=== PATIENT | female | born 1945 | race Caucasian/White ===

== ENCOUNTER → 2017-11-16 14:51 | Outpatient (CLI) | payer MEDICARE, OTHER, SELFPAY | PROVIDERS: PCP Family Medicine; Visit Provider Orthopaedic Surgery | DX: M75.121 Complete rotator cuff tear or rupture of right shoulder, not specified as traumatic (principal) | CPT/HCPCS: 99213 ==

== ENCOUNTER → 2017-11-21 07:55 | Outpatient (CLI) | payer MEDICARE, OTHER, SELFPAY | PROVIDERS: PCP Family Medicine; Visit Provider Orthopaedic Surgery | DX: M75.121 Complete rotator cuff tear or rupture of right shoulder, not specified as traumatic (principal); Z01.818 Encounter for other preprocedural examination ==

== ENCOUNTER → 2017-12-13 20:13 | Outpatient (REF) | payer MEDICARE, OTHER, SELFPAY ==
[2017-12-13 20:49] LABS: Epithelial Cells Rare HPF (Negative); RBC >50 (0-2); WBC >50 HPF (0-5)
[2017-12-13 20:50] LABS: Bacteria Moderate HPF (Negative); C & S Indicated? C&S Done As Ordered; Casts Negative LPF (Negative); Crystals Negative HPF (Negative); Mucus Negative (Negative); Other Cells Mod Transitional (Negative)
== END ==
LOC: LBN 20:13
PROVIDERS: PCP Family Medicine; Visit Provider Family Medicine
DX: R35.0 Frequency of micturition (principal)
CPT/HCPCS: 87077; 81015; 87086; 87186

== ENCOUNTER → 2017-12-28 13:22 | Outpatient (BNVA) | payer MEDICARE, OTHER, SELFPAY | PROVIDERS: PCP Family Medicine; Referring Provider Family Medicine; Visit Provider Orthopaedic Surgery | DX: S46.011D Strain of muscle(s) and tendon(s) of the rotator cuff of right shoulder, subsequent encounter (principal); S46.211D Strain of muscle, fascia and tendon of other parts of biceps, right arm, subsequent encounter; W19.XXXD Unspecified fall, subsequent encounter ==

== ENCOUNTER → 2018-01-16 09:47 | Outpatient (BNVA) | payer MEDICARE, OTHER, SELFPAY | PROVIDERS: PCP Family Medicine; Referring Provider Family Medicine; Visit Provider Orthopaedic Surgery | DX: Z47.89 Encounter for other orthopedic aftercare (principal); M75.41 Impingement syndrome of right shoulder ==

== ENCOUNTER → 2018-02-15 09:29 | Outpatient (BNVA) | payer MEDICARE, OTHER, SELFPAY | PROVIDERS: PCP Family Medicine; Referring Provider Family Medicine; Visit Provider Orthopaedic Surgery | DX: M17.0 Bilateral primary osteoarthritis of knee (principal); Z47.89 Encounter for other orthopedic aftercare; M75.41 Impingement syndrome of right shoulder | CPT/HCPCS: 20610; 99211; 99213; J1040 ==

== ENCOUNTER → 2018-03-27 08:52 | Outpatient (BNVA) | payer MEDICARE, OTHER, SELFPAY | PROVIDERS: PCP Family Medicine; Referring Provider Family Medicine; Visit Provider Orthopaedic Surgery | DX: M75.41 Impingement syndrome of right shoulder (principal); Z47.89 Encounter for other orthopedic aftercare | CPT/HCPCS: 99211; 99213 ==

== ENCOUNTER 2018-05-21 18:00 | Emergency (ER) | payer MEDICARE, OTHER, SELFPAY ==
[2018-05-21 18:31] VITALS: BP 171/81; RESP 18; TEMP 36.4
--- NOTE | 2018-05-21 18:55 | DI.CT_ITS ---
SYMPTOMS/DIAGNOSIS: RIGHT-SIDED HEADACHE X [address]: No intracranial hemorrhage, mass or infarct is seen. There is no significant atrophy. The ventricles are normal in size. There are mild patchy areas of decreased attenuation in the white matter consistent with mild small vessel disease. There is minimal mucosal thickening at the floor of the right maxillary sinus. The mastoid air cells appear clear. IMPRESSION: No acute abnormality. CT ANGIOGRAPHY OF THE HEAD AND NECK: CT angiography was performed with multi slice acquisition and multi planar and 3D reconstruction. There is no evidence of vascular occlusion, dissection or significant stenosis in the head or neck. No aneurysm is identified. There is a mild stenosis in the proximal left internal carotid artery. IMPRESSION: Mild stenosis of the proximal left internal carotid artery.
[2018-05-21 19:21] LABS: Abs Immature Grans 0.01 k/cumm (0.0-0.09); Absolute Basophil Count 0.02 k/cumm (0.0-0.2); Absolute Eosinophil Count 0.07 k/cumm (0.0-0.7); Absolute Lymphocyte Count 1.62 k/cumm (1.2-3.4); Absolute Monocyte Count 0.61 k/cumm (0.11-0.7); Absolute Neutrophil Count 5.25 k/cumm (1.2-6.7); Basophils % 0.3; Eosinophils % 0.9; HCT 39.1 % (36.0-46.0); HGB 13.1 g/dL (12.0-15.5); Immature Grans % 0.1; Lymphocytes % 21.4; Mean Corp. HGB Concentration 33.5 g/dL (32.0-36.0); Mean Corpuscular Volume 89.7 fL (80-95); Neutrophils % 69.3; Platelet Count 219 x1000/uL (130-400); RBC 4.36 m/cumm (4.00-5.20); RBC Distribution Width 13.1 % (11.7-14.6); White Blood Cell Count 7.58 k/cumm (4.4-10.8)
[2018-05-21 19:23] LABS: ALT 21 U/L (12-78); AST 22 U/L (15-37); Albumin 3.5 g/dL (3.4-5.0); Alkaline Phosphatase 123 U/L (46-116); Anion Gap 8.3 mmol/L (3-11); BUN 17 mg/dL (7-18); Bilirubin, Total 0.2 mg/dL (0.2-1.0); CO2 29.7 mmol/L (21.0-32.0); CREATININE 0.74 mg/dL (0.55-1.02); Chloride 103 mmol/L (98-107); Glucose 107 mg/dL (70-100); Potassium 3.7 mmol/L (3.5-5.1); Sodium 141 mmol/L (136-145); Total Protein 7.3 g/dL (6.4-8.2)
[2018-05-21] MEDS: Ketorolac 30 MG/ML VIAL 15 MG IM (19:26)
[2018-05-21] MEDS: Acetaminophen 500 MG TAB 1000 MG PO (19:26)
[2018-05-21] MEDS: Prochlorperazine 10 MG/2 ML VIAL IVP (19:26)
[2018-05-21] MEDS: methylPREDNISolone SUCC 125 MG VIAL IVP (19:26)
[2018-05-21] MEDS: Normal Saline 1,000 ML 1000 ML IV (19:27)
[2018-05-21] MEDS: Omnipaque 350 MG/ML 100 ML BTL IJ (19:44)
[2018-05-21] MEDS: Normal Saline Flush 10 ML SYR IVP (19:45)
--- NOTE | 2018-05-21 20:15 | DI.VRAD_ITS ---
EXAM: CT Head Without Contrast EXAM DATE/TIME: 05/21/2018 6:56 PM CLINICAL HISTORY: 72 years old, female; Pain; Headache; Other: RT sided; Patient HX: Right-sided GARCIA 5 days TECHNIQUE: Axial computed tomography images of the head/brain without contrast. Coronal and sagittal reformatted images were created and reviewed. COMPARISON: CT HEAD FACIALS WO 07/14/2014 12:48 PM FINDINGS: Brain: No acute intracranial hemorrhage. There is mild diffuse heterogeneity of the white matter attenuation, consistent with chronic white matter ischemic changes. Mild cerebral atrophy Ventricles: Normal. No ventriculomegaly. Bones/joints: Unremarkable. No acute fracture. Sinuses: Mucosal thickening in the right maxillary sinus and ethmoid sinuses and right sphenoid sinus may represent mild sinusitis Mastoid air cells: Visualized mastoid air cells are unremarkable. No mastoid effusion. Soft tissues: Unremarkable. IMPRESSION: No acute intracranial hemorrhage. Dictated and Authenticated by: Tyler Griffith MD. Ordering:ALYSHA Muir MD
--- NOTE | 2018-05-21 20:32 | DI.VRAD_ITS ---
EXAM: CT Angiography Head With Contrast EXAM DATE/TIME: 05/21/2018 6:56 PM CLINICAL HISTORY: 72 years old, female; Pain; Headache; Patient HX: Right sided GARCIA 5 days TECHNIQUE: Axial computed tomographic angiography images of the head with intravenous contrast using CT angiography protocol. MIP reconstructed images were created and reviewed. COMPARISON: CT Private^HEAD ROUTINE (Adult) 05/21/2018 7:36 PM FINDINGS: Right internal carotid artery: Unremarkable. Intracranial segment is patent with no significant stenosis. No aneurysm. Right anterior cerebral artery: Unremarkable. No occlusion or significant stenosis. No aneurysm. Right middle cerebral artery: Unremarkable. No occlusion or significant stenosis. No aneurysm. Right posterior cerebral artery: Unremarkable. No occlusion or significant stenosis. No aneurysm. Right vertebral artery: Unremarkable. No occlusion or significant stenosis. No aneurysm. Left internal carotid artery: Unremarkable. Intracranial segment is patent with no significant stenosis. No aneurysm. Left anterior cerebral artery: Unremarkable. No occlusion or significant stenosis. No aneurysm. Left middle cerebral artery: Unremarkable. No occlusion or significant stenosis. No aneurysm. Left posterior cerebral artery: Unremarkable. No occlusion or significant stenosis. No aneurysm. Left vertebral artery: Unremarkable. No occlusion or significant stenosis. No aneurysm. Basilar artery: Unremarkable. No occlusion or significant stenosis. No aneurysm. IMPRESSION: No acute findings. EXAM: CT Angiography Neck With Contrast EXAM DATE/TIME: 05/21/2018 6:56 PM CLINICAL HISTORY: 72 years old, female; Pain; Headache; Patient HX: Right sided GARCIA 5 days TECHNIQUE: Axial computed tomographic angiography images of the neck with intravenous contrast using CT angiography protocol. MIP reconstructed images were created and reviewed. COMPARISON: CT Private^HEAD ROUTINE (Adult) 05/21/2018 7:36 PM FINDINGS: VASCULATURE: Right common carotid artery: Normal. No significant stenosis. No dissection or occlusion. Right internal carotid artery: Normal. Extracranial segment is patent with no significant stenosis. No dissection or occlusion. Right external carotid artery: Normal. No occlusion or significant stenosis. Right vertebral artery: Normal. No significant stenosis. No dissection or occlusion. Left common carotid artery: Normal. No significant stenosis. No dissection or occlusion. Left internal carotid artery: Mild stenosis proximal left ICA. Left external carotid artery: Normal. No occlusion or significant stenosis. Left vertebral artery: Normal. No significant stenosis. No dissection or occlusion. NECK: Bones/joints: No acute fracture. Soft tissues: Normal. No significant soft tissue swelling. IMPRESSION: Mild stenosis proximal left ICA. COMMENT: Reference per NASCET criteria for degree of stenosis: Mild: <50% stenosis. Moderate: 50-69% stenosis. Severe: 70-94% stenosis. Near occlusion: 95-99% stenosis. Dictated and Authenticated by: Glenn Holloway MD. Ordering:ALYSHA Muir MD
[2018-05-21] MEDS: Amoxicillin 875/Clav. 125 TAB PO (21:12)
--- NOTE | 2018-05-21 21:26 | W.ED.GENAD ---
Discharge Plan Disposition Patient Disposition: HOME Condition: Good Discharge Details Chief Complaint: Headache Clinical Impression: Sinusitis, Right-sided headache Reason For Visit: head ache Primary Care Provider: Mellissa Garnett ED Provider: Wood Zaragoza Home Meds and New Rx's Prescriptions: New fluticasone [Flonase Allergy Relief] 50 mcg/actuation spray,suspension 1 spray KARTHIK DAILY Qty: 15.8 RF: 0 amoxicillin-pot clavulanate 875-125 mg tablet 1 tab PO BID 7 Days Qty: 14 RF: 0 loratadine 10 mg capsule 10 mg PO DAILY Qty: 20 RF: 0 No Action carbamazepine 100 mg tablet extended release 12 hr 100 mg PO BID Qty: 60 RF: 2 Ventolin HFA 8 GM HFA aerosol inhaler 2 puff Inhalation Q4H PRN Qty: 1 RF: 12 nystatin 60 GM powder Topical BID Qty: 60 RF: 12 fluticasone 16 GM spray,suspension 1 spry NS BID Qty: 1 RF: 12 citalopram 20 MG tablet 20 mg PO DAILY Qty: 90 RF: 12 ibuprofen [Advil Liqui-Gel] 200 MG capsule 200 mg PO BID PRNRF: 0 multivitamin 1 EACH capsule 1 cap PO DAILY RF: 0 cholecalciferol (vitamin D3) [Vitamin D3] 1,000 UNIT capsule 1,000 unit PO DAILY RF: 0 acetaminophen [Mapap Extra Strength] 500 MG tablet 1,000 mg PO PRN PRNRF: 0 Docljrqb-Oxtxup-EMG with vit D 1 EACH tablet 1 tab PO DAILY RF: 0 Discharge Instructions Instructions: Sinusitis (ED) Additional Instructions: Please take the medication as directed. Please follow-up with your primary care provider as soon as possible for reassessment. If you notice any worsening of your symptoms, or any new symptoms such as vomiting, diarrhea, fever, chills, shortness of breath, chest pain, numbness, weakness, or fainting , please return immediately to the emergency department for reevaluation. Please follow up with your primary care provider as soon as possible for reassessment and reevaluation. As always, it was a pleasure participating in your medical care today. Referrals: Mellissa Garnett MD, [place] [Primary Care Provider] - Medical Decision Making This is a pleasant 72-year-old female who presents today for evaluation of headache for the last week. She describes it as an achy pressure-like sensation on the right side of her face, primarily over the frontal and maxillary sinuses. Physical exam demonstrates notable reproducible tenderness on palpation and percussion of the sinuses. No evidence of ocular entrapment, significant swelling or other abnormality. No evidence of nuchal rigidity or tenderness. Signs and symptoms are clinically inconsistent with meningitis. Her vision is normal, and pupils are equal and reactive, no clinical evidence of glaucoma or history of it. She demonstrates a clinical history and exam that is inconsistent with severe intracranial bleed or ruptured aneurysm. With the patient's persistent of her headaches even in spite of carbamazepine treatment, I do feel that further workup is indicated. We did discuss potential lumbar puncture and the patient is requesting to hold off on this for the time being. Laboratory workup is returned demonstrates no significant abnormalities. CT scan and CT angios the head neck to evaluate for aneurysm have returned and is negative for any acute process however there is notable mucosal thickening of the right maxillary sinus and the ethmoid and the right sphenoid sinuses which may represent mild sinusitis. This appears to be clinically consistent with the patient's symptoms, I do feel that this may be playing a role. The patient did not have any notable improvement of her symptoms with migraine cocktail, further making a migraine headache less likely as the cause of her symptoms. With no concerning imaging findings, and clinical exam and consistent with meningitis or intracranial bleed, I do feel that treatment for sinusitis is certainly reasonable. She is already received Solu-Medrol, we push we will prescribe a nasal steroid, as well as a nasal decongestion antibiotics. For sinusitis. We will give the first dose here. She does have close follow-up with her primary care provider in the next 2 days. We did discuss red flags which to return the patient understands. I have extensively reviewed the treatment plan and discharge instructions with the patient and their family. I have addressed all patient concerns at this time. The patient and family was made aware of what symptoms to monitor for that would warrant a return to the emergency department. Discussed the plan with the patient and family, they demonstrate verbal understanding and agreement with our assessment and plan at this time. FINDINGS: Brain: No acute intracranial hemorrhage. There is mild diffuse heterogeneity of the white matter attenuation, consistent with chronic white matter ischemic changes. Mild cerebral atrophy Ventricles: Normal. No ventriculomegaly. Bones/joints: Unremarkable. No acute fracture. Sinuses: Mucosal thickening in the right maxillary sinus and ethmoid sinuses and right sphenoid sinus may represent mild sinusitis Mastoid air cells: Visualized mastoid air cells are unremarkable. No mastoid effusion. Soft tissues: Unremarkable. IMPRESSION: No acute intracranial hemorrhage. FINDINGS: Right internal carotid artery: Unremarkable. Intracranial segment is patent with no significant stenosis. No aneurysm. Right anterior cerebral artery: Unremarkable. No occlusion or significant stenosis. No aneurysm. Right middle cerebral artery: Unremarkable. No occlusion or significant stenosis. No aneurysm. Right posterior cerebral artery: Unremarkable. No occlusion or significant stenosis. No aneurysm. Right vertebral artery: Unremarkable. No occlusion or significant stenosis. No aneurysm. Left internal carotid artery: Unremarkable. Intracranial segment is patent with no significant stenosis. No aneurysm. Left anterior cerebral artery: Unremarkable. No occlusion or significant stenosis. No aneurysm. Left middle cerebral artery: Unremarkable. No occlusion or significant stenosis. No aneurysm. Left posterior cerebral artery: Unremarkable. No occlusion or significant stenosis. No aneurysm. Left vertebral artery: Unremarkable. No occlusion or significant stenosis. No aneurysm. Basilar artery: Unremarkable. No occlusion or significant stenosis. No aneurysm. IMPRESSION: No acute findings. FINDINGS: VASCULATURE: Right common carotid artery: Normal. No significant stenosis. No dissection or occlusion. Right internal carotid artery: Normal. Extracranial segment is patent with no significant stenosis. No dissection or occlusion. Right external carotid artery: Normal. No occlusion or significant stenosis. Right vertebral artery: Normal. No significant stenosis. No dissection or occlusion. Left common carotid artery: Normal. No significant stenosis. No dissection or occlusion. Left internal carotid artery: Mild stenosis proximal left ICA. Left external carotid artery: Normal. No occlusion or significant stenosis. Left vertebral artery: Normal. No significant stenosis. No dissection or occlusion. NECK: Bones/joints: No acute fracture. Soft tissues: Normal. No significant soft tissue swelling. IMPRESSION: Mild stenosis proximal left ICA. COMMENT: Reference per NASCET criteria for degree of stenosis: Mild: <50% stenosis. Moderate: 50-69% stenosis. Severe: 70-94% stenosis. Near occlusion: 95-99% stenosis. Thank you for allowing us to participate in the care of your patient. Dictated and Authenticated by: Glenn Holloway MD HPI General Date/Time Provider Initiated Documentation: 05/21/18 18:41. HPI Narrative: This is a pleasant 72-year-old female with no significant past medical history except for multiple various surgeries, who presents today for evaluation of headache. Patient states that for the last 5 days she has had mild headache over her frontal and maxillary sinus on the right. Roughly 7 days ago she had been noticing notable pressure, and then felt like something released with a notable transition of her symptoms. She is unable to describe the nature of the pain, but describes it is painful and aching and pressure-like. She denies any significant visual changes, she denies any neck pain, neck stiffness, sore throat, hearing changes. She denies any rash. She was seen by primary care provider 5 days ago and was diagnosed with trigeminal neuralgia, and started on carbamazepine. She notes that this is not changed or improved her symptoms at all. She denies any other modifying factors. Light, loud noise, did not make her symptoms worse. She states that this feels slightly different than previous sinus headaches that she has had. The patient denies any headache red flags of worst headache of life, thunderclap headache, neck pain, fever, chills, concerning family history of polycystic kidney disease, Marfan syndrome, Florence-Danlos syndrome, abdominal aortic aneurysm, aortic dissection, or intracranial aneurysm. Related Data Home Medications Medication Instructions Recorded Confirmed albuterol sulfate [Ventolin Hfa] 2 puff INHALATION Q4H PRN #1 09/21/15 05/21/18 inhaler nystatin 0 TOPICAL BID #60 gm 12/29/15 05/16/18 ibuprofen [Advil] 200 mg PO BID PRN 10/28/16 05/21/18 multivitamin 1 cap PO DAILY 07/14/17 05/21/18 fluticasone 1 spry NS BID #1 bottle 08/07/17 05/21/18 citalopram 20 mg PO DAILY #90 tab-cap 11/09/17 05/21/18 cholecalciferol (vitamin D3) 1,000 unit PO DAILY 11/21/17 05/21/18 [Vitamin D3] acetaminophen [Tylenol] 1,000 mg PO PRN PRN 12/01/17 05/21/18 eqqegbxn-ibais-qku 2-C-D3-ricardo 1 tab PO DAILY 12/01/17 05/21/18 [Wyrnrmotuf-Mflcqjgornj-UBH Tab] carbamazepine ER 100 mg 100 mg PO BID #60 tab 05/16/18 05/21/18 tablet,extended release,12 hr amoxicillin-pot clavulanate 1 tab PO BID 7 Days #14 tab 05/21/18 fluticasone [Flonase Allergy 1 spray KARTHIK DAILY #15.8 gm 05/21/18 Relief] loratadine 10 mg PO DAILY #20 cap 05/21/18 Previous Rx's Medication Instructions Recorded fluticasone 1 spry NS BID #1 bottle 08/07/17 citalopram 20 mg PO DAILY #90 tab-cap 11/09/17 carbamazepine ER 100 mg 100 mg PO BID #60 tab 05/16/18 tablet,extended release,12 hr amoxicillin-pot clavulanate 1 tab PO BID 7 Days #14 tab 05/21/18 fluticasone [Flonase Allergy 1 spray KARTHIK DAILY #15.8 gm 05/21/18 Relief] loratadine 10 mg PO DAILY #20 cap 05/21/18 Allergies Allergy/AdvReac Type Severity Reaction Status Date / Time oxycodone HCl [From Percocet] AdvReac hallucinati Unverified 05/21/18 18:36 ons General Stated Complaint: Headache STEVO: 2 Review of Systems Review of Systems All systems reviewed & are unremarkable except as noted in HPI and below PFSH Surgical History Appendectomy (04/17/80) Bladder Surgery (~1994) Bursectomy Cholecystectomy (~1980) Colonoscopy - MAC (~2000) Dilation and curettage EGD - MAC (~2000) Rotator Cuff Repair Tonsillectomy and adenoidectomy Total replacement of hip (11/02/16) Family History Mother Essential hypertension Heart disease Hyperlipidemia Stroke Father Hheyh-[id number]-mfiivdeowhf deficiency Diabetes Asthma Sister Kvcqm-0-sojuegxyqfy deficiency Lung transplanted Sister Essential hypertension Hyperlipidemia Asthma Grandfather Diabetes Essential hypertension Depression Grandfather Heart disease Asthma Grandmother Essential hypertension Hyperlipidemia Stroke Grandmother Essential hypertension Heart disease Hyperlipidemia Stroke Daughter No problems noted. Social History Smoking/Tobacco Use Status: Former Tobacco Use Exam Narrative Exam Narrative: 1.Const: Well-nourished, Well-developed, appearing stated age 2.Eyes: PERRL, no conjunctival injection, and symmetrical lids. 3.ENT: Atraumatic external nose and ears. Moist MM. Neck: Symmetric, trachea midline, No thyromegaly. Patient demonstrates good movement of cervical neck. There is no nuchal rigidity, no nuchal tenderness. Patient is able to flex the neck without any difficulty or significant pain. Negative Kernig's and Brudzinski sign. Notable tenderness on percussion of the frontal and maxillary sinuses. No evidence of swelling on the face. No evidence of rash, or shingles. No evidence of facial droop, or facial asymmetry. No evidence of otitis media or externa. 4.CVS: +S1/S2, No murmurs or gallops. Peripheral pulses 2+ and equal in all extremities. Brisk capillary refill in all extremities. 5.RESP: Unlabored respiratory effort. Clear to auscultation bilaterally. No wheezes rales or rhonchi 6.GI: Soft, Nontender/Nondistended, No hepatosplenomegaly. No guarding or rebound. 7.MSK: Normocephalic/Atraumatic, Extremities w/o deformity or ttp No cyanosis or clubbing, Normal movement of all extremities 8.Skin: Warm, Dry. No rashes or lesions. 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 Sensation grossly intact, no focal neurologic deficits. All 6 cardinal planes of vision are fully intact. No evidence of rotatory or vertical nystagmus. The patient demonstrated a normal mxvtfv-kzhp-ycdkvr, good dexterity. There was no evidence of dysdiadochokinesia. Patient was able to ambulate without difficulty. There was no wide-based gait. Romberg, and phjj-hr-ggrc are both normal on testing. Sensation was intact bilaterally as well as muscle strength bilaterally for all extremities. Patient was able to verbalize butter cup with no slurring, or miss pronunciation. 10.Psych: (AAO) x3. Appropriate mood and affect Course Vital Signs Temperature 36.4 C L 05/21/18 18:31 Respiratory Rate 18 05/21/18 18:31 Blood Pressure 171/81 H 05/21/18 18:31 Temperature 36.4 C L 05/21/18 18:31 Temperature Source Temporal Artery Scan 05/21/18 18:31 Respiratory Rate 18 05/21/18 18:31 Blood Pressure 171/81 H 05/21/18 18:31 Blood Pressure Position Sitting 05/21/18 18:31 Oxygen Delivery Method Room Air 05/21/18 18:31 Oxygen Flow Rate 0 05/21/18 18:31 Pain Level 10 05/21/18 18:31 Lab/Test Results Lab/Test Results: Laboratory Tests Range/Units 05/21/18 05/21/18 19:04 19:05 WBC (4.4-10.8) k/cumm 7.58 RBC (4.00-5.20) m/cumm 4.36 Hgb (12.0-15.5) g/dL 13.1 Hct (36.0-46.0) % 39.1 MCV (80-95) fL 89.7 MCH (27.0-33.0) pg 30.0 MCHC (32.0-36.0) g/dL 33.5 RDW (11.7-14.6) % 13.1 Plt Count (130-400) x1000/uL 219 MPV (8.0-11.0) fL 10.0 Immature Gran % 0.1 Neutrophils % 69.3 Lymphocytes % 21.4 Monocytes % 8.0 Eosinophils % 0.9 Basophils % 0.3 Absolute Neutrophils (1.2-6.7) k/cumm 5.25 Absolute Lymphocytes (1.2-3.4) k/cumm 1.62 Absolute Monocytes (0.11-0.7) k/cumm 0.61 Absolute Eosinophils (0.0-0.7) k/cumm 0.07 Absolute Basophils (0.0-0.2) k/cumm 0.02 Sodium (136-145) mmol/L 141 Potassium (3.5-5.1) mmol/L 3.7 Chloride (98-107) mmol/L 103 Carbon Dioxide (21.0-32.0) mmol/L 29.7 Anion Gap (3-11) mmol/L 8.3 BUN (7-18) mg/dL 17 Creatinine (0.55-1.02) mg/dL 0.74 Estimated GFR/1.73 m2 (mL/min/1.73m2) >= 60.00 Glucose (70-100) mg/dL 107 H Calcium (8.5-10.1) mg/dL 9.0 Total Bilirubin (0.2-1.0) mg/dL 0.2 AST (15-37) U/L 22 ALT (12-78) U/L 21 Alkaline Phosphatase (46-116) U/L 123 H Total Protein (6.4-8.2) g/dL 7.3 Albumin (3.4-5.0) g/dL 3.5
--- NOTE | 2018-05-21 21:29 | ED.GENADUL_ITS ---
Discharge Plan Disposition Patient Disposition: HOME Condition: Good Discharge Details Chief Complaint: Headache Clinical Impression: Sinusitis, Right-sided headache Reason For Visit: head ache Primary Care Provider: Mellissa Garnett ED Provider: Wood Zaragoza Home Meds and New Rx's Prescriptions: New fluticasone [Flonase Allergy Relief] 50 mcg/actuation spray,suspension 1 spray KARTHIK DAILY Qty: 15.8 RF: 0 amoxicillin-pot clavulanate 875-125 mg tablet 1 tab PO BID 7 Days Qty: 14 RF: 0 loratadine 10 mg capsule 10 mg PO DAILY Qty: 20 RF: 0 No Action carbamazepine 100 mg tablet extended release 12 hr 100 mg PO BID Qty: 60 RF: 2 Ventolin HFA 8 GM HFA aerosol inhaler 2 puff Inhalation Q4H PRN Qty: 1 RF: 12 nystatin 60 GM powder Topical BID Qty: 60 RF: 12 fluticasone 16 GM spray,suspension 1 spry NS BID Qty: 1 RF: 12 citalopram 20 MG tablet 20 mg PO DAILY Qty: 90 RF: 12 ibuprofen [Advil Liqui-Gel] 200 MG capsule 200 mg PO BID PRNRF: 0 multivitamin 1 EACH capsule 1 cap PO DAILY RF: 0 cholecalciferol (vitamin D3) [Vitamin D3] 1,000 UNIT capsule 1,000 unit PO DAILY RF: 0 acetaminophen [Mapap Extra Strength] 500 MG tablet 1,000 mg PO PRN PRNRF: 0 Lbrnstgw-Fksjos-IRR with vit D 1 EACH tablet 1 tab PO DAILY RF: 0 Discharge Instructions Instructions: Sinusitis (ED) Additional Instructions: Please take the medication as directed. Please follow-up with your primary care provider as soon as possible for reassessment. If you notice any worsening of your symptoms, or any new symptoms such as vomiting, diarrhea, fever, chills, shortness of breath, chest pain, numbness, weakness, or fainting , please return immediately to the emergency department for reevaluation. Please follow up with your primary care provider as soon as possible for reassessment and reevaluation. As always, it was a pleasure participating in your medical care today. Referrals: Mellissa Garnett MD, [place] [Primary Care Provider] - Medical Decision Making This is a pleasant 72-year-old female who presents today for evaluation of headache for the last week. She describes it as an achy pressure- like sensation on the right side of her face, primarily over the frontal and maxillary sinuses. Physical exam demonstrates notable reproducible tenderness on palpation and percussion of the sinuses. No evidence of ocular entrapment, significant swelling or other abnormality. No evidence of nuchal rigidity or tenderness. Signs and symptoms are clinically inconsistent with meningitis. Her vision is normal, and pupils are equal and reactive, no clinical evidence of glaucoma or history of it. She demonstrates a clinical history and exam that is inconsistent with severe intracranial bleed or ruptured aneurysm. With the patient's persistent of her headaches even in spite of carbamazepine treatment, I do feel that further workup is indicated. We did discuss potential lumbar puncture and the patient is requesting to hold off on this for the time being. Laboratory workup is returned demonstrates no significant abnormalities. CT scan and CT angios the head neck to evaluate for aneurysm have returned and is negative for any acute process however there is notable mucosal thickening of the right maxillary sinus and the ethmoid and the right sphenoid sinuses which may represent mild sinusitis. This appears to be clinically consistent with the patient's symptoms, I do feel that this may be playing a role. The patient did not have any notable improvement of her symptoms with migraine cocktail, further making a migraine headache less likely as the cause of her symptoms. With no concerning imaging findings, and clinical exam and consistent with meningitis or intracranial bleed, I do feel that treatment for sinusitis is certainly reasonable. She is already received Solu-Medrol, we push we will prescribe a nasal steroid, as well as a nasal decongestion antibiotics. For sinusitis. We will give the first dose here. She does have close follow-up with her primary care provider in the next 2 days. We did discuss red flags which to return the patient understands. I have extensively reviewed the treatment plan and discharge instructions with the patient and their family. I have addressed all patient concerns at this time. The patient and family was made aware of what symptoms to monitor for that would warrant a return to the emergency department. Discussed the plan with the patient and family, they demonstrate verbal understanding and agreement with our assessment and plan at this time. FINDINGS: Brain: No acute intracranial hemorrhage. There is mild diffuse heterogeneity of the white matter attenuation, consistent with chronic white matter ischemic changes. Mild cerebral atrophy Ventricles: Normal. No ventriculomegaly. Bones/joints: Unremarkable. No acute fracture. Sinuses: Mucosal thickening in the right maxillary sinus and ethmoid sinuses and right sphenoid sinus may represent mild sinusitis Mastoid air cells: Visualized mastoid air cells are unremarkable. No mastoid effusion. Soft tissues: Unremarkable. IMPRESSION: No acute intracranial hemorrhage. FINDINGS: Right internal carotid artery: Unremarkable. Intracranial segment is patent with no significant stenosis. No aneurysm. Right anterior cerebral artery: Unremarkable. No occlusion or significant stenosis. No aneurysm. Right middle cerebral artery: Unremarkable. No occlusion or significant stenosis. No aneurysm. Right posterior cerebral artery: Unremarkable. No occlusion or significant stenosis. No aneurysm. Right vertebral artery: Unremarkable. No occlusion or significant stenosis. No aneurysm. Left internal carotid artery: Unremarkable. Intracranial segment is patent with no significant stenosis. No aneurysm. Left anterior cerebral artery: Unremarkable. No occlusion or significant stenosis. No aneurysm. Left middle cerebral artery: Unremarkable. No occlusion or significant stenosis. No aneurysm. Left posterior cerebral artery: Unremarkable. No occlusion or significant stenosis. No aneurysm. Left vertebral artery: Unremarkable. No occlusion or significant stenosis. No aneurysm. Basilar artery: Unremarkable. No occlusion or significant stenosis. No aneurysm. IMPRESSION: No acute findings. FINDINGS: VASCULATURE: Right common carotid artery: Normal. No significant stenosis. No dissection or occlusion. Right internal carotid artery: Normal. Extracranial segment is patent with no significant stenosis. No dissection or occlusion. Right external carotid artery: Normal. No occlusion or significant stenosis. Right vertebral artery: Normal. No significant stenosis. No dissection or occlu mat. Left common carotid artery: Normal. No significant stenosis. No dissection or occlusion. Left internal carotid artery: Mild stenosis proximal left ICA. Left external carotid artery: Normal. No occlusion or significant stenosis. Left vertebral artery: Normal. No significant stenosis. No dissection or occlusion. NECK: Bones/joints: No acute fracture. Soft tissues: Normal. No significant soft tissue swelling. IMPRESSION: Mild stenosis proximal left ICA. COMMENT: Reference per NASCET criteria for degree of stenosis: Mild: <50% stenosis. Moderate: 50-69% stenosis. Severe: 70-94% stenosis. Near occlusion: 95-99% stenosis. Thank you for allowing us to participate in the care of your patient. Dictated and Authenticated by: Glenn Holloway MD HPI General Date/Time Provider Initiated Documentation: 05/21/18 18:41 . HPI Narrative: This is a pleasant 72-year-old female with no significant past medical history except for multiple various surgeries, who presents today for evaluation of headache. Patient states that for the last 5 days she has had mild headache over her frontal and maxillary sinus on the right. Roughly 7 days ago she had been noticing notable pressure, and then felt like something released with a notable transition of her symptoms. She is unable to describe the nature of the pain, but describes it is painful and aching and pressure-like. She denies any significant visual changes, she denies any neck pain, neck stiffness, sore throat, hearing changes. She denies any rash. She was seen by primary care provider 5 days ago and was diagnosed with trigeminal neuralgia, and started on carbamazepine. She notes that this is not changed or improved her symptoms at all. She denies any other modifying factors. Light, loud noise, did not make her symptoms worse. She states that this feels slightly different than previous sinus headaches that she has had. The patient denies any headache red flags of worst headache of life, thunderclap headache, neck pain, fever, chills, concerning family history of polycystic kidney disease, Marfan syndrome, Florence- Danlos syndrome, abdominal aortic aneurysm, aortic dissection, or intracranial aneurysm. Related Data Home Medications Medication Instructions Recorded Confirmed albuterol sulfate [Ventolin Hfa] 2 puff INHALATION Q4H PRN #1 09/21/15 05/21/18 inhaler nystatin 0 TOPICAL BID #60 gm 12/29/15 05/16/18 ibuprofen [Advil] 200 mg PO BID PRN 10/28/16 05/21/18 multivitamin 1 cap PO DAILY 07/14/17 05/21/18 fluticasone 1 spry NS BID #1 bottle 08/07/17 05/21/18 citalopram 20 mg PO DAILY #90 tab-cap 11/09/17 05/21/18 cholecalciferol (vitamin D3) 1,000 unit PO DAILY 11/21/17 05/21/18 [Vitamin D3] acetaminophen [Tylenol] 1,000 mg PO PRN PRN 12/01/17 05/21/18 xturyhrp-hxtmp-qgu 2-C-D3-ricardo 1 tab PO DAILY 12/01/17 05/21/18 [Cmgamybqet-Mdgxikeqdpm-SVY Tab] carbamazepine ER 100 mg 100 mg PO BID #60 tab 05/16/18 05/21/18 tablet,extended release,12 hr amoxicillin-pot clavulanate 1 tab PO BID 7 Days #14 tab 05/21/18 fluticasone [Flonase Allergy 1 spray KARTHIK DAILY #15.8 gm 05/21/18 Relief] loratadine 10 mg PO DAILY #20 cap 05/21/18 Previous Rx's Medication Instructions Recorded fluticasone 1 spry NS BID #1 bottle 08/07/17 citalopram 20 mg PO DAILY #90 tab-cap 11/09/17 carbamazepine ER 100 mg 100 mg PO BID #60 tab 05/16/18 tablet,extended release,12 hr amoxicillin-pot clavulanate 1 tab PO BID 7 Days #14 tab 05/21/18 fluticasone [Flonase Allergy 1 spray KARTHIK DAILY #15.8 gm 05/21/18 Relief] loratadine 10 mg PO DAILY #20 cap 05/21/18 Allergies Allergy/AdvReac Type Severity Reaction Status Date / Time oxycodone HCl [From Percocet] AdvReac hallucinati Unverified 05/21/18 18:36 ons General Stated Complaint: Headache STEVO: 2 Review of Systems Review of Systems All systems reviewed & are unremarkable except as noted in HPI and below PFSH Surgical History Appendectomy (04/17/80) Bladder Surgery (~1994) Bursectomy Cholecystectomy (~1980) Colonoscopy - MAC (~2000) Dilation and curettage EGD - MAC (~2000) Rotator Cuff Repair Tonsillectomy and adenoidectomy Total replacement of hip (11/02/16) Family History Mother Essential hypertension Heart disease Hyperlipidemia Stroke Father Gvppm-[id number]-bugpwtiusip deficiency Diabetes Asthma Sister Gzvfq-[id number]-[id number] deficiency Lung transplanted Sister Essential hypertension Hyperlipidemia Asthma Grandfather Diabetes Essential hypertension Depression Grandfather Heart disease Asthma Grandmother Essential hypertension Hyperlipidemia Stroke Grandmother Essential hypertension Heart disease Hyperlipidemia Stroke Daughter No problems noted. Social History Smoking/Tobacco Use Status: Former Tobacco Use Exam Narrative Exam Narrative: 1.Const: Well-nourished, Well-developed, appearing stated age 2.Eyes: PERRL, no conjunctival injection, and symmetrical lids. 3.ENT: Atraumatic external nose and ears. Moist MM. Neck: Symmetric, trachea midline, No thyromegaly. Patient demonstrates good movement of cervical neck. There is no nuchal rigidity, no nuchal tenderness. Patient is able to flex the neck without any difficulty or significant pain. Negative Kernig's and Brudzinski sign. Notable tenderness on percussion of the frontal and maxillary sinuses. No evidence of swelling on the face. No evidence of rash, or shingles. No evidence of facial droop, or facial asymmetry. No evidence of otitis media or externa. 4.CVS: +S1/S2, No murmurs or gallops. Peripheral pulses 2+ and equal in all extremities. Brisk capillary refill in all extremities. 5.RESP: Unlabored respiratory effort. Clear to auscultation bilaterally. No wheezes rales or rhonchi 6.GI: Soft, Nontender/Nondistended, No hepatosplenomegaly. No guarding or rebound. 7.MSK: Normocephalic/Atraumatic, Extremities w/o deformity or ttp No cyanosis or clubbing, Normal movement of all extremities 8.Skin: Warm, Dry. No rashes or lesions. 9.Neuro: sound recordist II-XII grossly intact. Sensation grossly intact, no focal neurologic deficits. All 6 cardinal planes of vision are fully intact. No evidence of rotatory or vertical nystagmus. The patient demonstrated a normal ayoixx-wbex-szburm, good dexterity. There was no evidence of dysdiadochokinesia. Patient was able to ambulate without difficulty. There was no wide-based gait. Romberg, and pwzh-ao-kdri are both normal on testing. Sensation was intact bilaterally as well as muscle strength bilaterally for all extremities. Patient was able to verbalize butter cup with no slurring, or miss pronunciation. 10.Psych: (AAO) x3. Appropriate mood and affect Course Vital Signs Temperature 36.4 C L 05/21/18 18:31 Respiratory Rate 18 05/21/18 18:31 Blood Pressure 171/81 H 05/21/18 18:31 Temperature 36.4 C L 05/21/18 18:31 Temperature Source Temporal Artery Scan 05/21/18 18:31 Respiratory Rate 18 05/21/18 18:31 Blood Pressure 171/81 H 05/21/18 18:31 Blood Pressure Position Sitting 05/21/18 18:31 Oxygen Delivery Method Room Air 05/21/18 18:31 Oxygen Flow Rate 0 05/21/18 18:31 Pain Level 10 05/21/18 18:31 Lab/Test Results Lab/Test Results: Laboratory Tests Range/Units 05/21/18 05/21/18 19:04 19:05 WBC (4.4-10.8) k/cumm 7.58 RBC (4.00-5.20) m/cumm 4.36 Hgb (12.0-15.5) g/dL 13.1 Hct (36.0-46.0) % 39.1 MCV (80-95) fL 89.7 MCH (27.0-33.0) pg 30.0 MCHC (32.0-36.0) g/dL 33.5 RDW (11.7-14.6) % 13.1 Plt Count (130-400) x1000/uL 219 MPV (8.0-11.0) fL 10.0 Immature Gran % 0.1 Neutrophils % 69.3 Lymphocytes % 21.4 Monocytes % 8.0 Eosinophils % 0.9 Basophils % 0.3 Absolute Neutrophils (1.2-6.7) k/cumm 5.25 Absolute Lymphocytes (1.2-3.4) k/cumm 1.62 Absolute Monocytes (0.11-0.7) k/cumm 0.61 Absolute Eosinophils (0.0-0.7) k/cumm 0.07 Absolute Basophils (0.0-0.2) k/cumm 0.02 Sodium (136-145) mmol/L 141 Potassium (3.5-5.1) mmol/L 3.7 Chloride (98-107) mmol/L 103 Carbon Dioxide (21.0-32.0) mmol/L 29.7 Anion Gap (3-11) mmol/L 8.3 BUN (7-18) mg/dL 17 Creatinine (0.55-1.02) mg/dL 0.74 Estimated GFR/1.73 m2 (mL/min/1.73m2) >= 60.00 Glucose (70-100) mg/dL 107 H Calcium (8.5-10.1) mg/dL 9.0 Total Bilirubin (0.2-1.0) mg/dL 0.2 AST (15-37) U/L 22 ALT (12-78) U/L 21 Alkaline Phosphatase (46-116) U/L 123 H Total Protein (6.4-8.2) g/dL 7.3 Albumin (3.4-5.0) g/dL 3.5
[2018-05-21 21:47] VITALS: BP 174/85; PULSE 75; RESP 18; TEMP 36.5; O2SAT 95
--- NOTE | 2018-05-26 09:49 | NUR.NOTE ---
Nursing Note: Patient called stating that she was still having a headache and having tremors. Saw her dentist and it is not dental, but they questioned any cardiac testing. She was wondering what she should do. Unable to give advice over the phone, she should come in for evaluation and discussion with provider about testing for cardiac issues. She understood and stated will be in. Ariella Tamez.
== END 2018-05-21 21:47 | disposition home or self-care (01) ==
PROVIDERS: Emergency Provider Student in an Organized Health Care Education/Training Program; PCP Family Medicine
DX: J01.90 Acute sinusitis, unspecified (principal); R50.9 Fever, unspecified
CPT/HCPCS: 36415; 70496; 70498; 80053; 96361; 96372; 96374; 96375; 99284; 70450; 85025; J0780; J1885; J2930; J3490

== ENCOUNTER 2018-05-26 10:23 | Emergency (ER) | payer MEDICARE, OTHER, SELFPAY ==
[2018-05-26 10:29] VITALS: BP 160/70; PULSE 88; RESP 15; TEMP 36.6; O2SAT 97
[2018-05-26 11:19] LABS: Abs Immature Grans 0.02 k/cumm (0.0-0.09); Absolute Basophil Count 0.02 k/cumm (0.0-0.2); Absolute Eosinophil Count 0.06 k/cumm (0.0-0.7); Absolute Lymphocyte Count 1.57 k/cumm (1.2-3.4); Absolute Monocyte Count 0.58 k/cumm (0.11-0.7); Absolute Neutrophil Count 3.89 k/cumm (1.2-6.7); Basophils % 0.3; HCT 40.1 % (36.0-46.0); HGB 13.3 g/dL (12.0-15.5); Immature Grans % 0.3; Lymphocytes % 25.6; Mean Corp. HGB Concentration 33.2 g/dL (32.0-36.0); Mean Corpuscular Hemoglobin 30.2 pg (27.0-33.0); Mean Corpuscular Volume 90.9 fL (80-95); Mean Platelet Volume 9.8 fL (8.0-11.0); Monocytes % 9.4; Neutrophils % 63.4; Platelet Count 218 x1000/uL (130-400); RBC 4.41 m/cumm (4.00-5.20); RBC Distribution Width 13.3 % (11.7-14.6); White Blood Cell Count 6.14 k/cumm (4.4-10.8)
[2018-05-26 11:34] LABS: ALT 31 U/L (12-78); AST 24 U/L (15-37); Albumin 3.3 g/dL (3.4-5.0); Alkaline Phosphatase 111 U/L (46-116); Anion Gap 7.2 mmol/L (3-11); BUN 18 mg/dL (7-18); Bilirubin, Total 0.3 mg/dL (0.2-1.0); CO2 30.8 mmol/L (21.0-32.0); CREATININE 0.73 mg/dL (0.55-1.02); Calcium 8.8 mg/dL (8.5-10.1); Chloride 106 mmol/L (98-107); Glucose 122 mg/dL (70-100); Potassium 3.8 mmol/L (3.5-5.1); Sodium 144 mmol/L (136-145); Total Protein 7.1 g/dL (6.4-8.2)
[2018-05-26 11:36] LABS: Troponin I < 0.02 ng/mL (0.00-0.06)
[2018-05-26 11:56] LABS: Bilirubin Negative (Negative); Blood Trace-lysed (Negative); Clarity Clear; Glucose Negative (Negative); Ketones Negative (Negative); Leukocyte Esterase Negative (Negative); Nitrite Negative (Negative); Urobilinogen 0.2 EU/dL (Up TO 0.2); pH 6.5 (5-8)
[2018-05-26 12:11] LABS: Epithelial Cells Rare HPF (Negative); RBC 0-2 (0-2)
[2018-05-26 12:12] LABS: Bacteria Rare HPF (Negative); C & S Indicated? No; Casts Negative LPF (Negative); Crystals Negative HPF (Negative); Mucus Negative (Negative); Other Cells Rare Renal (Negative)
--- NOTE | 2018-05-26 12:13 | W.ED.GENAD ---
Discharge Plan Disposition Patient Disposition: HOME Condition: Good Discharge Details Chief Complaint: Headache Clinical Impression: Headache Primary Care Provider: Mellissa Garnett ED Provider: Wood Zaragoza Home Meds and New Rx's Prescriptions: No Action carbamazepine 100 mg tablet extended release 12 hr 100 mg PO BID Qty: 60 RF: 2 Ventolin HFA 8 GM HFA aerosol inhaler 2 puff Inhalation Q4H PRN Qty: 1 RF: 12 nystatin 60 GM powder Topical BID Qty: 60 RF: 12 fluticasone 16 GM spray,suspension 1 spry NS BID Qty: 1 RF: 12 citalopram 20 MG tablet 20 mg PO DAILY Qty: 90 RF: 12 ibuprofen [Advil Liqui-Gel] 200 MG capsule 200 mg PO BID PRNRF: 0 multivitamin 1 EACH capsule 1 cap PO DAILY RF: 0 cholecalciferol (vitamin D3) [Vitamin D3] 1,000 UNIT capsule 1,000 unit PO DAILY RF: 0 acetaminophen [Mapap Extra Strength] 500 MG tablet 1,000 mg PO PRN PRNRF: 0 Farwjpwt-[id number]-NPO with vit D 1 EACH tablet 1 tab PO DAILY RF: 0 fluticasone [Flonase Allergy Relief] 50 mcg/actuation spray,suspension 1 spray KARTHIK DAILY Qty: 15.8 RF: 0 amoxicillin-pot clavulanate 875-125 mg tablet 1 tab PO BID 7 Days Qty: 14 RF: 0 loratadine 10 mg capsule 10 mg PO DAILY Qty: 20 RF: 0 Discharge Instructions Instructions: General Headache (ED) Additional Instructions: Please follow-up with your primary care provider at your scheduled appointment on Monday. Please follow-up with the neurologist Dr. Lamas as soon as you were contacted for an appointment please continue to take the medications that were prescribed on her last visit. If you notice any worsening of your symptoms, or any new symptoms such as vomiting, diarrhea, fever, chills, shortness of breath, chest pain, numbness, weakness, or fainting , please return immediately to the emergency department for reevaluation. Please follow up with your primary care provider as soon as possible for reassessment and reevaluation. As always, it was a pleasure participating in your medical care today. Referrals: Mellissa Garnett MD, [place] [Primary Care Provider] - Discharge Data Discharge Date/Time-TO BE ENTERED AT DEPARTURE: 05/26/18 12:32 Medical Decision Making Is a pleasant 72-year-old female was a headache for the last 1-2 weeks, was initially diagnosed by her PCP having trigeminal neuralgia, and came to the ER and had a fairly extensive headache workup, with the diagnosis being sinusitis as noted on CT with no other concerning red flags noted on exam, imaging, labs. She went to see her dentist over the last 2-3 days and the dentist recommended that she come back for a full cardiac workup in regards to her headache. She has no red flags of jaw pain, neck pain, chest pain or shortness of breath. She denies any recent cardiac disease, he does not smoke. Denies PE risk factors such as recent long car rides, immobilization, recent surgery, prior history of DVT or PE, family history of PE or DVT, morbid obesity, exogenous estrogen and smoking, hemoptysis, history of cancer. Physical exam demonstrates no significant abnormalities, no signs of meningitis, mild tenderness is persistent for the right frontal and maxillary sinuses. No neurologic abnormalities are noted, and the patient's physical exam is certainly not indicative of significant Parkinson's at this time. Patient does not want any additional CT reimaging. Laboratory workup was performed including urinalysis at the patient's specific request. Urinalysis, laboratory workup, troponin, and EKG are all benign with no significant abnormalities. At the patient's request I did review every single lab test and result that was performed on her. I reviewed the EKG with her, and had an extensive and long discussion regarding her symptoms, importance of continuing her sinusitis medication, the importance of close follow-up. Also made it clear that unfortunately over the weekend we are unable to get an MRI at this time but I do recommend close follow-up with her primary care provider. I did recommend neurology follow-up if she would like with Dr. Lamas, however the patient states that she will follow-up closely with her primary care doctor within the next 3 days, and they will reassess the need for potential neurology follow-up. Patient did demonstrate some hesitation with Dr. Lamas and was requesting referral to a neurologist in [place], however unfortunately I am unable to make that referral did recommend that she discuss this with her primary care provider. We discussed red flags which to return and the patient understands. I have extensively reviewed the treatment plan and discharge instructions with the patient and their family. I have addressed all patient concerns at this time. The patient and family was made aware of what symptoms to monitor for that would warrant a return to the emergency department. Discussed the plan with the patient and family, they demonstrate verbal understanding and agreement with our assessment and plan at this time. EKG 10: 58 Rate 78, intervals normal, sinus rhythm, no ST elevations or depressions, single Q wave in lead III. No inverted T waves except for V1. No inverted T wave in lead III. No broad terminal S wave. No evidence of STEMI. HPI General Date/Time Provider Initiated Documentation: 05/26/18 10:42. HPI Narrative: This is a 72-year-old female who presents for evaluation of headache. Roughly 1-1/2 weeks ago she was seen and assessed by her primary care provider diagnosed her with right-sided trigeminal neuralgia. She was started on carbamazepine but had no significant improvement of her symptoms with this. She then came to the emergency department a few days later after no resolution and had a workup notable for a negative CT scan of the head, CT angiogram of the head and neck, negative comprehensive metabolic workup and a negative hematologic workup. The patient did not want a lumbar puncture at that time. CT scan did show evidence of sinusitis on the right that correlated well with her symptomatology. She was started on antihistamines, Augmentin and Flonase. She was taking the medications, and then went to see her dentist who recommended that she come back to the ER for a cardiac workup as a source of her headaches. She presents today for further cardiac evaluation of her headache. She denies any jaw pain, neck pain, chest pain, shortness of breath, numbness, tingling or weakness. She states that her headache has slightly improved with the medications that she has been on. Of note she only took 3 days of the Augmentin and then started taking Keflex at the recommendation of her dentist. She denies any neck pain, nausea, vomiting, or diarrhea. She denies any vision changes. She denies any new rash. The pain is still located in her right frontal and right maxillary sinus area. She describes it as achy and pressure-like in nature. She states that she has noticed increased drainage and slight improvement after the medications for the sinusitis. The patient also states that her friend recommended that she should be evaluated for Parkinson's disease if she has noted an occasional tremor as of late. She denies any significant difficulty ambulating, profound weakness, or any other significant neurologic component. Additionally the patient is also requesting that all labs and studies ordered today we reviewed with her prior to discharge. Related Data Home Medications Medication Instructions Recorded Confirmed albuterol sulfate [Ventolin Hfa] 2 puff INHALATION Q4H PRN #1 09/21/15 05/23/18 inhaler nystatin 0 TOPICAL BID #60 gm 12/29/15 05/23/18 ibuprofen [Advil] 200 mg PO BID PRN 10/28/16 05/23/18 multivitamin 1 cap PO DAILY 07/14/17 05/23/18 fluticasone 1 spry NS BID #1 bottle 08/07/17 05/23/18 citalopram 20 mg PO DAILY #90 tab-cap 11/09/17 05/23/18 cholecalciferol (vitamin D3) 1,000 unit PO DAILY 11/21/17 05/23/18 [Vitamin D3] acetaminophen [Tylenol] 1,000 mg PO PRN PRN 12/01/17 05/23/18 fnagkqxo-yysfj-wkz 2-C-D3-ricardo 1 tab PO DAILY 12/01/17 05/23/18 [Ylavhzpflu-Togwkamspao-JPY Tab] carbamazepine ER 100 mg 100 mg PO BID #60 tab 05/16/18 05/23/18 tablet,extended release,12 hr amoxicillin-pot clavulanate 1 tab PO BID 7 Days #14 tab 05/21/18 05/23/18 fluticasone [Flonase Allergy 1 spray KARTHIK DAILY #15.8 gm 05/21/18 05/23/18 Relief] loratadine 10 mg PO DAILY #20 cap 05/21/18 05/23/18 Previous Rx's Medication Instructions Recorded fluticasone 1 spry NS BID #1 bottle 08/07/17 citalopram 20 mg PO DAILY #90 tab-cap 11/09/17 carbamazepine ER 100 mg 100 mg PO BID #60 tab 05/16/18 tablet,extended release,12 hr amoxicillin-pot clavulanate 1 tab PO BID 7 Days #14 tab 02/04/19 fluticasone [Flonase Allergy 1 spray KARTHIK DAILY #15.8 gm 05/21/18 Relief] loratadine 10 mg PO DAILY #20 cap 05/21/18 Allergies Allergy/AdvReac Type Severity Reaction Status Date / Time oxycodone HCl [From Percocet] AdvReac hallucinati Unverified 05/23/18 09:47 ons General Stated Complaint: Headache STEVO: 2 Review of Systems Review of Systems All systems reviewed & are unremarkable except as noted in HPI and below PFSH Surgical History Appendectomy (04/17/80) Bladder Surgery (~1994) Bursectomy Cholecystectomy (~1980) Colonoscopy - MAC (~2000) Dilation and curettage EGD - MAC (~2000) Rotator Cuff Repair Tonsillectomy and adenoidectomy Total replacement of hip (11/02/16) Family History Mother Essential hypertension Heart disease Hyperlipidemia Stroke Father Htqrz-[id number]-ezlnoytcpog deficiency Diabetes Asthma Sister Vcroa-[id number]-hxzgwbvcesi deficiency Lung transplanted Sister Essential hypertension Hyperlipidemia Asthma Grandfather Diabetes Essential hypertension Depression Grandfather Heart disease Asthma Grandmother Essential hypertension Hyperlipidemia Stroke Grandmother Essential hypertension Heart disease Hyperlipidemia Stroke Daughter No problems noted. Social History Smoking and Tabacco status: Former Tobacco Use Exam Narrative Exam Narrative: 1.Const: Well-nourished, Well-developed, appearing stated age 2.Eyes: PERRL, no conjunctival injection, and symmetrical lids. 3.ENT: Atraumatic external nose and ears. Moist MM. Neck: Symmetric, trachea midline, No thyromegaly. Mild tenderness on percussion and palpation of the frontal and maxillary sinuses. No evidence of shingles. No signs of otitis media. Patient demonstrates good movement of cervical neck. There is no nuchal rigidity, no nuchal tenderness. Patient is able to flex the neck without any difficulty or significant pain. Negative Kernig's and Brudzinski sign. 4.CVS: +S1/S2, No murmurs or gallops. Peripheral pulses 2+ and equal in all extremities. Brisk capillary refill in all extremities. 5.RESP: Unlabored respiratory effort. Clear to auscultation bilaterally. No wheezes rales or rhonchi 6.GI: Soft, Nontender/Nondistended, No hepatosplenomegaly. No guarding or rebound. 7.MSK: Normocephalic/Atraumatic, Extremities w/o deformity or ttp No cyanosis or clubbing, Normal movement of all extremities 8.Skin: Warm, Dry. No rashes or lesions. 9.Neuro: trucker II-XII grossly intact. Sensation grossly intact, no focal neurologic deficits. All 6 cardinal planes of vision are fully intact. No evidence of rotatory or vertical nystagmus. The patient demonstrated a normal gvedxm-xzoc-zruorz, good dexterity. There was no evidence of dysdiadochokinesia. Patient was able to ambulate without difficulty. There was no wide-based gait. Romberg, and wthu-kp-drwc are both normal on testing. Sensation was intact bilaterally as well as muscle strength bilaterally for all extremities. Patient was able to verbalize butter cup with no slurring, or miss pronunciation. No evidence of cogwheel rigidity, lead pipe rigidity, difficulty in ambulation or fine motor skills. 10.Psych: (AAO) x3. Appropriate mood and affect Course Vital Signs Temperature 36.6 C 05/26/18 10:29 Pulse 88 05/26/18 10:29 Respiratory Rate 15 05/26/18 10:29 Blood Pressure 160/70 H 05/26/18 10:29 Pulse Oximetry 97 05/26/18 10:29 Temperature 36.6 C 05/26/18 10:29 Temperature Source Temporal Artery Scan 05/26/18 10:29 Pulse 88 05/26/18 10:29 Respiratory Rate 15 05/26/18 10:29 Respiratory Effort Non-Labored 05/26/18 10:36 Blood Pressure 160/70 H 05/26/18 10:29 Blood Pressure Position Supine 05/26/18 10:29 Pulse Oximetry 97 05/26/18 10:29 Oxygen Delivery Method Room Air 05/26/18 10:29 Oxygen Flow Rate 0 05/26/18 10:29 Pain Level 6 05/26/18 10:39 Lab/Test Results Lab/Test Results: Laboratory Tests Range/Units 05/26/18 05/26/18 05/26/18 11:14 11:14 11:45 WBC (4.4-10.8) k/cumm 6.14 RBC (4.00-5.20) m/cumm 4.41 Hgb (12.0-15.5) g/dL 13.3 Hct (36.0-46.0) % 40.1 MCV (80-95) fL 90.9 MCH (27.0-33.0) pg 30.2 MCHC (32.0-36.0) g/dL 33.2 RDW (11.7-14.6) % 13.3 Plt Count (130-400) x1000/uL 218 MPV (8.0-11.0) fL 9.8 Immature Gran % 0.3 Neutrophils % 63.4 Lymphocytes % 25.6 Monocytes % 9.4 Eosinophils % 1.0 Basophils % 0.3 Absolute Neutrophils (1.2-6.7) k/cumm 3.89 Absolute Lymphocytes (1.2-3.4) k/cumm 1.57 Absolute Monocytes (0.11-0.7) k/cumm 0.58 Absolute Eosinophils (0.0-0.7) k/cumm 0.06 Absolute Basophils (0.0-0.2) k/cumm 0.02 Sodium (136-145) mmol/L 144 Potassium (3.5-5.1) mmol/L 3.8 Chloride (98-107) mmol/L 106 Carbon Dioxide (21.0-32.0) mmol/L 30.8 Anion Gap (3-11) mmol/L 7.2 BUN (7-18) mg/dL 18 Creatinine (0.55-1.02) mg/dL 0.73 Estimated GFR/1.73 m2 (mL/min/1.73m2) >= 60.00 Glucose (70-100) mg/dL 122 H Calcium (8.5-10.1) mg/dL 8.8 Total Bilirubin (0.2-1.0) mg/dL 0.3 AST (15-37) U/L 24 ALT (12-78) U/L 31 Alkaline Phosphatase (46-116) U/L 111 Troponin I (0.00-0.06) ng/mL < 0.02 Total Protein (6.4-8.2) g/dL 7.1 Albumin (3.4-5.0) g/dL 3.3 L Urine Color (Yellow) Yellow Urine Clarity Clear Urine pH (5-8) 6.5 Ur Specific [place] (1.005-1.025) 1.010 Urine Protein (Negative) mg/dL Negative Urine Ketones (Negative) mg/dL Negative Urine Blood (Negative) Trace-lysed H Urine Nitrite (Negative) Negative Urine Bilirubin (Negative) Negative Urine Urobilinogen (Up TO 0.2) EU/dL 0.2 Ur Leukocyte Esterase (Negative) Negative Urine RBC (0-2) 0-2 Urine WBC (0-5) HPF 3-5 Ur Epithelial Cells (Negative) HPF Rare Urine Crystals (Negative) HPF Negative Urine Bacteria (Negative) HPF Rare Urine Casts (Negative) LPF Negative Urine Mucus (Negative) Negative Urine Other (Negative) Rare renal Ur Culture Indicated? No Urine Glucose (Negative) mg/dL Negative
--- NOTE | 2018-05-26 12:17 | ED.GENADUL_ITS ---
Discharge Plan Disposition Patient Disposition: HOME Condition: Good Discharge Details Chief Complaint: Headache Clinical Impression: Headache Primary Care Provider: Mellissa Garnett ED Provider: Wood Zaragoza Home Meds and New Rx's Prescriptions: No Action carbamazepine 100 mg tablet extended release 12 hr 100 mg PO BID Qty: 60 RF: 2 Ventolin HFA 8 GM HFA aerosol inhaler 2 puff Inhalation Q4H PRN Qty: 1 RF: 12 nystatin 60 GM powder Topical BID Qty: 60 RF: 12 fluticasone 16 GM spray,suspension 1 spry NS BID Qty: 1 RF: 12 citalopram 20 MG tablet 20 mg PO DAILY Qty: 90 RF: 12 ibuprofen [Advil Liqui-Gel] 200 MG capsule 200 mg PO BID PRNRF: 0 multivitamin 1 EACH capsule 1 cap PO DAILY RF: 0 cholecalciferol (vitamin D3) [Vitamin D3] 1,000 UNIT capsule 1,000 unit PO DAILY RF: 0 acetaminophen [Mapap Extra Strength] 500 MG tablet 1,000 mg PO PRN PRNRF: 0 Whlzzmke-Edrptf-CQD with vit D 1 EACH tablet 1 tab PO DAILY RF: 0 fluticasone [Flonase Allergy Relief] 50 mcg/actuation spray,suspension 1 spray KARTHIK DAILY Qty: 15.8 RF: 0 amoxicillin-pot clavulanate 875-125 mg tablet 1 tab PO BID 7 Days Qty: 14 RF: 0 loratadine 10 mg capsule 10 mg PO DAILY Qty: 20 RF: 0 Discharge Instructions Instructions: General Headache (ED) Additional Instructions: Please follow-up with your primary care provider at your scheduled appointment on Monday. Please follow-up with the neurologist Dr. Lamas as soon as you were contacted for an appointment please continue to take the medications that were prescribed on her last visit. If you notice any worsening of your symptoms, or any new symptoms such as vomiting, diarrhea, fever, chills, shortness of breath, chest pain, numbness, weakness, or fainting , please return immediately to the emergency department for reevaluation. Please follow up with your primary care provider as soon as possible for reassessment and reev aluation. As always, it was a pleasure participating in your medical care today. Referrals: Mellissa Garnett MD, [place] [Primary Care Provider] - Discharge Data Discharge Date/Time-TO BE ENTERED AT DEPARTURE: 05/26/18 12:32 Medical Decision Making Is a pleasant 72-year-old female was a headache for the last 1-2 weeks, was initially diagnosed by her PCP having trigeminal neuralgia, and came to the ER and had a fairly extensive headache workup, with the diagnosis being sinusitis as noted on CT with no other concerning red flags noted on exam, imaging, labs. She went to see her dentist over the last 2-3 days and the dentist recommended that she come back for a full cardiac workup in regards to her headache. She shanks s no red flags of jaw pain, neck pain, chest pain or shortness of breath. She denies any recent cardiac disease, he does not smoke. Denies PE risk factors such as recent long car rides, immobilization, recent surgery, prior history of DVT or PE, family history of PE or DVT, morbid obesity, exogenous estrogen and smoking, hemoptysis, history of cancer. Physical exam demonstrates no significant abnormalities, no signs of meningitis, mild tenderness is persistent for the right frontal and maxillary sinuses. No neurologic abnormalities are noted, and the patient's physical exam is certainly not indicative of significant Parkinson's at this time. Patient does not want any additional CT reimaging. Laboratory workup was performed including urinalysis at the patient's specific request. Urinalysis, laboratory workup, troponin, and EKG are all benign with no significant abnormalities. At the patient's request I did review every single lab test and result that was performed on her. I rev iewed the EKG with her, and had an extensive and long discussion regarding her symptoms, importance of continuing her sinusitis medication, the importance of close follow-up. Also made it clear that unfortunately over the weekend we are unable to get an MRI at this time but I do recommend close follow-up with her primary care provider. I did recommend neurology follow-up if she would like with Dr. Lamas, however the patient states that she will follow-up closely with her primary care doctor within the next 3 days, and they will reassess the need for potential neurology follow-up. Patient did demonstrate some hesitation with Dr. Lamas and was requesting referral to a neurologist in [place], however unfortunately I am unable to make that referral did recommend that she discuss this with her primary care provider. We discussed red flags which to return and the patient understands. I have extensively reviewed the treatment plan and discharge instructions with the patient and their family. I have addressed all patient concerns at this time. The patient and family was made aware of what symptoms to monitor for that would warrant a return to the emergency department. Discussed the plan with the patient and family, they demonstrate verbal understanding and agreement with our assessment and plan at this time. EKG 10: 58 Rate 78, intervals normal, sinus rhythm, no ST elevations or depressions, single Q wave in lead III. No inverted T waves except for V1. No inverted T wave in lead III. No broad terminal S wave. No evidence of STEMI. HPI General Date/Time Provider Initiated Documentation: 05/26/18 10:42 . HPI Narrative: This is a 72-year-old female who presents for evaluation of headache. Roughly 1-1/2 weeks ago she was seen and assessed by her primary care provider diagnosed her with right-sided trigeminal neuralgia. She was started on carbamazepine but had no significant improvement of her symptoms with this. She then came to the emergency department a few days later after no resolution and had a workup notable for a negative CT scan of the head, CT angiogram of the head and neck, negative comprehensive metabolic workup and a negative hematologic workup. The patient did not want a lumbar puncture at that time. CT scan did show evidence of sinusitis on the right that correlated well with her symptomatology. She was started on antihistamines, Augmentin and Flonase. She was taking the medications, and then went to see her dentist who recommended that she come back to the ER for a cardiac workup as a source of her headaches. She presents today for further cardiac evaluation of her headache. She denies any jaw pain, neck pain, chest pain, shortness of breath, numbness, tingling or weakness. She states that her headache has slightly improved with the medications that she has been on. Of note she only took 3 days of the Augmentin and then started taking Keflex at the recommendation of her dentist. She denies any neck pain, nausea, vomiting, or diarrhea. She denies any vision changes. She denies any new rash. The pain is still located in her right frontal and right maxillary sinus area. She describes it as achy and pressure-like in nature. She states that she has noticed increased drainage and slight improvement after the medications for the sinusitis. The patient also states that her friend recommended that she should be evaluated for Parkinson's disease if she has noted an occasional tremor as of late. She denies any significant difficulty ambulating, profound weakness, or any other significant neurologic component. Additionally the patient is also requesting that all labs and studies ordered today we reviewed with her prior to discharge. Related Data Home Medications Medication Instructions Recorded Confirmed albuterol sulfate [Ventolin Hfa] 2 puff INHALATION Q4H PRN #1 09/21/15 05/23/18 inhaler nystatin 0 TOPICAL BID #60 gm 12/29/15 05/23/18 ibuprofen [Advil] 200 mg PO BID PRN 10/28/16 05/23/18 multivitamin 1 cap PO DAILY 07/14/17 05/23/18 fluticasone 1 spry NS BID #1 bottle 08/07/17 05/23/18 citalopram 20 mg PO DAILY #90 tab-cap 11/09/17 05/23/18 cholecalciferol (vitamin D3) 1,000 unit PO DAILY 11/21/17 05/23/18 [Vitamin D3] acetaminophen [Tylenol] 1,000 mg PO PRN PRN 12/01/17 05/23/18 udbfejbq-evwyp-wsd 2-C-D3-ricardo 1 tab PO DAILY 12/01/17 05/23/18 [Xxylrsoykn-Muztquaqrmz-RNH Tab] carbamazepine ER 100 mg 100 mg PO BID #60 tab 05/16/18 05/23/18 tablet,extended release,12 hr amoxicillin-pot clavulanate 1 tab PO BID 7 Days #14 tab 05/21/18 05/23/18 fluticasone [Flonase Allergy 1 spray KARTHIK DAILY #15.8 gm 05/21/18 05/23/18 Relief] loratadine 10 mg PO DAILY #20 cap 05/21/18 05/23/18 Previous Rx's Medication Instructions Recorded fluticasone 1 spry NS BID #1 bottle 08/07/17 citalopram 20 mg PO DAILY #90 tab-cap 11/09/17 carbamazepine ER 100 mg 100 mg PO BID #60 tab 05/16/18 tablet,extended release,12 hr amoxicillin-pot clavulanate 1 tab PO BID 7 Days #14 tab 05/21/18 fluticasone [Flonase Allergy 1 spray KARTHIK DAILY #15.8 gm 05/21/18 Relief] loratadine 10 mg PO DAILY #20 cap 05/21/18 Allergies Allergy/AdvReac Type Severity Reaction Status Date / Time oxycodone HCl [From Percocet] AdvReac hallucinati Unverified 05/23/18 09:47 ons General Stated Complaint: Headache STEVO: 2 Review of Systems Review of Systems All systems reviewed & are unremarkable except as noted in HPI and below PFSH Surgical History Appendectomy (04/17/80) Bladder Surgery (~1994) Bursectomy Cholecystectomy (~1980) Colonoscopy - MAC (~2000) Dilation and curettage EGD - MAC (~2000) Rotator Cuff Repair Tonsillectomy and adenoidectomy Total replacement of hip (11/02/16) Family History Mother Essential hypertension Heart disease Hyperlipidemia Stroke Father Myygv-2-rxiibmfvaxx deficiency Diabetes Asthma Sister Nbwaj-6-ygvnplggjdp deficiency Lung transplanted Sister Essential hypertension Hyperlipidemia Asthma Grandfather Diabetes Essential hypertension Depression Grandfather Heart disease Asthma Grandmother Essential hypertension Hyperlipidemia Stroke Grandmother Essential hypertension Heart disease Hyperlipidemia Stroke Daughter No problems noted. Social History Smoking and Tabacco status: Former Tobacco Use Exam Narrative Exam Narrative: 1.Const: Well-nourished, Well-developed, appearing stated age 2.Eyes: PERRL, no conjunctival injection, and symmetrical lids. 3.ENT: Atraumatic external nose and ears. Moist MM. Neck: Symmetric, trachea midline, No thyromegaly. Mild tenderness on percussion and palpation of the frontal and maxillary sinuses. No evidence of shingles. No signs of otitis media. Patient demonstrates good movement of cervical neck. There is no nuchal rigidity, no nuchal tenderness. Patient is able to flex the neck without any difficulty or significant pain. Negative Kernig's and Brudzinski sign. 4.CVS: +S1/S2, No murmurs or gallops. Peripheral pulses 2+ and equal in all extremities. Brisk capillary refill in all extremities. 5.RESP: Unlabored respiratory effort. Clear to auscultation bilaterally. No wheezes rales or rhonchi 6.GI: Soft, Nontender/Nondistended, No hepatosplenomegaly. No guarding or rebound. 7.MSK: Normocephalic/Atraumatic, Extremities w/o deformity or ttp No cyanosis or clubbing, Normal movement of all extremities 8.Skin: Warm, Dry. No rashes or lesions. 9.Neuro: hr representative II-XII grossly intact. Sensation grossly intact, no focal neurologic deficits. All 6 cardinal planes of vision are fully intact. No evidence of rotatory or vertical nystagmus. The patient demonstrated a normal lpgytg-dfts-zmlpol, good dexterity. There was no evidence of dysdiadochokinesia. Patient was able to ambulate without difficulty. There was no wide-based gait. Romberg, and bkse-lb-fcyl are both normal on testing. Sensation was intact bilaterally as well as muscle strength bilaterally for all extremities. Patient was able to verbalize butter cup with no slurring, or miss pronunciation. No evidence of cogwheel rigidity, lead pipe rigidity, difficulty in ambulation or fine motor skills. 10.Psych: (AAO) x3. Appropriate mood and affect Course Vital Signs Temperature 36.6 C 05/26/18 10:29 Pulse 88 05/26/18 10:29 Respiratory Rate 15 05/26/18 10:29 Blood Pressure 160/70 H 05/26/18 10:29 Pulse Oximetry 97 05/26/18 10:29 Temperature 36.6 C 05/26/18 10:29 Temperature Source Temporal Artery Scan 05/26/18 10:29 Pulse 88 05/26/18 10:29 Respiratory Rate 15 05/26/18 10:29 Respiratory Effort Non-Labored 05/26/18 10:36 Blood Pressure 160/70 H 05/26/18 10:29 Blood Pressure Position Supine 05/26/18 10:29 Pulse Oximetry 97 05/26/18 10:29 Oxygen Delivery Method Room Air 05/26/18 10:29 Oxygen Flow Rate 0 05/26/18 10:29 Pain Level 6 05/26/18 10:39 Lab/Test Results Lab/Test Results: Laboratory Tests Range/Units 05/26/18 05/26/18 05/26/18 11:14 11:14 11:45 WBC (4.4-10.8) k/cumm 6.14 RBC (4.00-5.20) m/cumm 4.41 Hgb (12.0-15.5) g/dL 13.3 Hct (36.0-46.0) % 40.1 MCV (80-95) fL 90.9 MCH (27.0-33.0) pg 30.2 MCHC (32.0-36.0) g/dL 33.2 RDW (11.7-14.6) % 13.3 Plt Count (130-400) x1000/uL 218 MPV (8.0-11.0) fL 9.8 Immature Gran % 0.3 Neutrophils % 63.4 Lymphocytes % 25.6 Monocytes % 9.4 Eosinophils % 1.0 Basophils % 0.3 Absolute Neutrophils (1.2-6.7) k/cumm 3.89 Absolute Lymphocytes (1.2-3.4) k/cumm 1.57 Absolute Monocytes (0.11-0.7) k/cumm 0.58 Absolute Eosinophils (0.0-0.7) k/cumm 0.06 Absolute Basophils (0.0-0.2) k/cumm 0.02 Sodium (136-145) mmol/L 144 Potassium (3.5-5.1) mmol/L 3.8 Chloride (98-107) mmol/L 106 Carbon Dioxide (21.0-32.0) mmol/L 30.8 Anion Gap (3-11) mmol/L 7.2 BUN (7-18) mg/dL 18 Creatinine (0.55-1.02) mg/dL 0.73 Estimated GFR/1.73 m2 (mL/min/1.73m2) >= 60.00 Glucose (70-100) mg/dL 122 H Calcium (8.5-10.1) mg/dL 8.8 Total Bilirubin (0.2-1.0) mg/dL 0.3 AST (15-37) U/L 24 ALT (12-78) U/L 31 Alkaline Phosphatase (46-116) U/L 111 Troponin I (0.00-0.06) ng/mL < 0.02 Total Protein (6.4-8.2) g/dL 7.1 Albumin (3.4-5.0) g/dL 3.3 L Urine Color (Yellow) Yellow Urine Clarity Clear Urine pH (5-8) 6.5 Ur Specific [place] (1.005-1.025) 1.010 Urine Protein (Negative) mg/dL Negative Urine Ketones (Negative) mg/dL Negative Urine Blood (Negative) Trace-lysed H Urine Nitrite (Negative) Negative Urine Bilirubin (Negative) Negative Urine Urobilinogen (Up TO 0.2) EU/dL 0.2 Ur Leukocyte Esterase (Negative) Negative Urine RBC (0-2) 0-2 Urine WBC (0-5) HPF 3-5 Ur Epithelial Cells (Negative) HPF Rare Urine Crystals (Negative) HPF Negative Urine Bacteria (Negative) HPF Rare Urine Casts (Negative) LPF Negative Urine Mucus (Negative) Negative Urine Other (Negative) Rare renal Ur Culture Indicated? No Urine Glucose (Negative) mg/dL Negative
[2018-05-26 12:29] VITALS: BP 160/70; PULSE 88; RESP 15; TEMP 36.6; O2SAT 97
--- NOTE | 2018-05-28 09:10 | PDOC.ERCMPRO ---
Care Management Progress Note 05/28-Dr. Zaragoza requested assistance with a neurology f/u in one month or earlier, for chronic headaches. Referral faxed to neurology this am.
== END 2018-05-26 12:32 | disposition home or self-care (01) ==
PROVIDERS: Emergency Provider Student in an Organized Health Care Education/Training Program; PCP Family Medicine
DX: R51 Headache (principal); G50.0 Trigeminal neuralgia; Z82.49 Family history of ischemic heart disease and other diseases of the circulatory system; Z87.891 Personal history of nicotine dependence; J01.90 Acute sinusitis, unspecified
CPT/HCPCS: 80053; 93005; 99284; 81003; 81015; 84484; 85025; 93010

== ENCOUNTER → 2018-05-29 09:14 | Outpatient (BNVA) | payer MEDICARE, OTHER, SELFPAY | PROVIDERS: PCP Family Medicine; Referring Provider Family Medicine; Visit Provider Orthopaedic Surgery | DX: M25.511 Pain in right shoulder (principal); G89.29 Other chronic pain; Z98.890 Other specified postprocedural states | CPT/HCPCS: 20610; 99211; 99213; J1040 ==

== ENCOUNTER 2018-05-29 15:40 | Outpatient (CLI) | payer MEDICARE, OTHER, SELFPAY ==
--- NOTE | 2018-05-29 12:20 | DI.RAD_ITS ---
SYMPTOM/DIAGNOSIS: NECK AND FACE PAIN, HEADACHE, R51 CERVICAL SPINE: Odontoid, AP and lateral views. The odontoid is intact. The lateral masses are well aligned. No acute fractures or subluxations are seen. There is disc space narrowing at C 3-4, C 5-6 and 6-7. Endplate osteophytes are seen at C 5-6 and C 6-7. There are degenerative changes of the facets seen throughout the cervical spine, particularly on the right at C 5-6 and C 6-7. Mild narrowing of the neural foramen is seen on the left at C 5-6 and on the right at C 5-6 and C 6-7. The prevertebral soft tissues are unremarkable. IMPRESSION: Moderate cervical spondylosis.
== END 2018-05-29 16:00 ==
PROVIDERS: PCP Family Medicine; Visit Provider Family Medicine
DX: R51 Headache (principal); M54.2 Cervicalgia; M47.812 Spondylosis without myelopathy or radiculopathy, cervical region
CPT/HCPCS: 20610; 99211; 99213; 72050; J1040

== ENCOUNTER → 2018-05-30 12:17 | Outpatient (BNVA) | payer MEDICARE, OTHER, SELFPAY | PROVIDERS: PCP Family Medicine; Visit Provider Nurse Practitioner Adult Health | DX: R51 Headache (principal) | CPT/HCPCS: 99214 ==

== ENCOUNTER 2018-05-31 09:40 | Outpatient (CLI) | payer MEDICARE, OTHER, SELFPAY ==
[2018-05-31 14:18] LABS: ESR 13 MM/HR (0-30)
== END 2018-05-31 10:00 ==
PROVIDERS: PCP Family Medicine; Visit Provider Nurse Practitioner Adult Health
DX: R51 Headache (principal)
CPT/HCPCS: 36415; 85652

== ENCOUNTER 2018-06-21 00:49 | Outpatient (CLI) | payer MEDICARE, OTHER, SELFPAY ==
--- NOTE | 2018-06-21 13:42 | DI.CT_ITS ---
SYMPTOMS/DIAGNOSIS: RIGHT-SIDED FACIAL PAIN, HEADACHE, R51 CT SINUSES: CT scan of the sinuses was performed according to the [facility] protocol. Comparison examination is 05/21/18. There is no mucosal thickening in the frontal sinuses. No significant mucosal thickening is seen in the ethmoid air cells. There is mild mucosal thickening seen in the maxillary sinuses bilaterally. There does appear to be a small mucus retention cyst or polyp in the right maxillary sinus. No fluid levels are seen. The sphenoid sinuses are clear except for mild mucosal thickening in the right sphenoid sinus. The mastoid air cells are well pneumatized. The osseous structures are grossly unremarkable. The nasal septum mildly deviates to the right. The turbinates are unremarkable, as are the ostiomeatal complexes. The orbits and retroorbital soft tissues are unremarkable. IMPRESSION: Mild chronic sinus disease.
[2018-06-21 15:53] LABS: Vitamin D 25 Total 37.8 ng/ml (30-100)
[2018-06-21 15:59] LABS: Magnesium 1.8 mg/dL (1.8-2.4); Vitamin B12 481 pg/mL (193-986)
== END 2018-06-21 01:09 ==
PROVIDERS: PCP Family Medicine; Visit Provider Family Medicine
DX: R51 Headache (principal); G50.0 Trigeminal neuralgia; E55.9 Vitamin D deficiency, unspecified; M54.2 Cervicalgia; K21.0 Gastro-esophageal reflux disease with esophagitis; J32.0 Chronic maxillary sinusitis
CPT/HCPCS: 36415; 82306; 70486; 82607; 83735

== ENCOUNTER 2018-06-26 00:52 | Outpatient (CLI) | payer MEDICARE, OTHER, SELFPAY ==
--- NOTE | 2018-06-26 14:41 | DI.MRI_ITS ---
SYMPTOMS/DIAGNOSIS: RIGHT SHOULDER PAIN S/P ROTATOR CUFF SURGERY, 12/01/17, DECREASED RANGE OF MOTION MRI OF THE RIGHT SHOULDER: Routine noncontrast examination. Comparison is 11/03/17. Since the prior examination, the patient has undergone a rotator cuff repair. The supraspinatus tendon appears to be retracted almost to the level of the glenohumeral joint, consistent with a retear. The infraspinatus, teres minor and subscapularis tendon appear intact. There is superior subluxation of the humeral head. There does not appear to be a labral tear on this noncontrast examination. There is abnormal signal seen in the humeral head, secondary to orthopedic artifact. No definite evidence to suggest an occult fracture or avascular necrosis is seen. The biceps tendon is seen in the region of the bicipital groove. The biceps anchor is not definitely visualized. Please correlate with the surgical report to assess for review of relocation of the biceps tendon. There is a moderate amount of fluid seen in the joint space. No soft tissue masses appreciated. There is artifact in the soft tissues and bone due to the patient's orthopedic surgery. IMPRESSION: 1. Status post rotator cuff repair. 2. Findings suggestive of a tear of the supraspinatus tendon. 3. Nonvisualization of the biceps anchor, which may reflect postsurgical relocation of the biceps tendon. Please correlate with the surgical report.
== END 2018-06-26 01:12 ==
PROVIDERS: PCP Family Medicine; Visit Provider Orthopaedic Surgery
DX: M25.511 Pain in right shoulder (principal); M25.811 Other specified joint disorders, right shoulder; M75.111 Incomplete rotator cuff tear or rupture of right shoulder, not specified as traumatic; Z98.890 Other specified postprocedural states
CPT/HCPCS: 73221

== ENCOUNTER → 2018-07-03 09:24 | Outpatient (BNVA) | payer MEDICARE, OTHER, SELFPAY | PROVIDERS: PCP Family Medicine; Visit Provider Nurse Practitioner Adult Health | DX: R51 Headache (principal) | CPT/HCPCS: 99212; 99213 ==

== ENCOUNTER → 2018-07-12 08:46 | Outpatient (BNVA) | payer MEDICARE, OTHER, SELFPAY | PROVIDERS: PCP Family Medicine; Referring Provider Family Medicine; Visit Provider Orthopaedic Surgery | DX: M25.511 Pain in right shoulder (principal); G89.29 Other chronic pain; M25.512 Pain in left shoulder; M25.561 Pain in right knee | CPT/HCPCS: 20610; 99211; 99213; J1040 ==

== ENCOUNTER → 2018-11-01 14:10 | Outpatient (BNVA) | payer MEDICARE, OTHER, SELFPAY | PROVIDERS: PCP Family Medicine; Referring Provider Family Medicine; Visit Provider Orthopaedic Surgery | DX: M17.11 Unilateral primary osteoarthritis, right knee (principal); M17.12 Unilateral primary osteoarthritis, left knee | CPT/HCPCS: 20610; 99211; 99213; J1040 ==

== ENCOUNTER 2019-01-14 18:33 | Outpatient (REF) | payer MEDICARE, OTHER, SELFPAY ==
--- NOTE | 2019-01-14 14:30 | SKI_PTH ---
PATIENT: Julissa Etienne LOC: [facility] U#:[id number] AGE/SX: 73/F ROOM: RE01/14/[address]: Tank Lazcano DO : 1945 BED: DIS: 01/14/2019 SPEC #: [id number] RECD: 01/14/19 18:42 STATUS: KARMEN REQ #: [id number] ELIAS: 01/14/19 14:[address]: Tank Lazcano DEPT: Surgical Specimen RECD BY: Zuly Multani ENTERED: 01/14/19 18:42 SP TYPE: JOEL JUÁREZ DR: Mellissa Garnett MD, DC Tissues: 1 - SKIN BIOPSY(SHAVE/PUNCH) Procedures: SKIN LEVEL 4 Comments: [id number]
== END 2019-01-14 18:53 ==
LOC: LBN 18:33
PROVIDERS: PCP Family Medicine; Visit Provider Otolaryngology Otolaryngology/Facial Plastic Surgery
DX: C44.311 Basal cell carcinoma of skin of nose (principal)
CPT/HCPCS: 88305

== ENCOUNTER 2019-01-29 12:36 | Outpatient (CLI) | payer MEDICARE, OTHER, SELFPAY ==
--- NOTE | 2019-01-29 09:15 | DI.RAD_ITS ---
EXAM: XR SHOULDER RT COMPLETE 2+V INDICATION: fall 01/11, not improving, S/P rotator cuff surgery, artifical shoulder. COMPARISON: No exams were available for comparison TECHNIQUE: 2D digital imaging was performed. FINDINGS: Five views were obtained and show a reverse shoulder prosthesis in position. Distal clavicle resecti on also noted. The components of the prosthesis appear well seated and no other significant bony abn ormality is seen. IMPRESSION:
== END 2019-01-29 12:56 ==
PROVIDERS: PCP Family Medicine
DX: Z96.611 Presence of right artificial shoulder joint (principal); M25.511 Pain in right shoulder; Z91.81 History of falling; Z98.890 Other specified postprocedural states
CPT/HCPCS: 73030

== ENCOUNTER 2019-02-01 08:49 | Outpatient (CLI) | payer MEDICARE, OTHER, SELFPAY ==
--- NOTE | 2019-02-01 08:42 | DI.RAD_ITS ---
EXAM: XR KNEE LT 3V AP,LAT,TITI AND RT KNEE INDICATION: OSTEOARTHRITIS. COMPARISON: XR KNEE RT 3V AP,LAT,TITI from 02/01/2019 TECHNIQUE: 2D digital imaging was performed. FINDINGS: Left knee: There is moderate narrowing the medial femoral tibial joint space and mild to moderate pe riarticular spurring from the femoral condyles and tibial plateaus. Spurring is also seen at the tib ial spines and femoral intercondylar notch. The patellofemoral joint space appears narrowed. Periar ticular spurring is seen. Impression moderate degenerative changes. Right knee: There is severe narrowing of the lateral femoral tibial joint. There is periarticular sp urring throughout. There is mild narrowing of patellofemoral joint and mild to periarticular spurrin g. Impression severe degenerative changes of the lateral femoral tibial joint.
--- NOTE | 2019-02-01 09:16 | DI.RAD_ITS ---
EXAM: XR STANDING ALIGNMENT INDICATION: Bilateral knee arthritis. COMPARISON: THORACIC SPINE from 02/15/2013 XR KNEE LT 3V AP,LAT,TITI from 02/01/2019 TECHNIQUE: 2D digital imaging was performed. 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 There is no visible leg length discrepancy. There are degene rative changes of both knees, left greater than right. The ankles show mild joint space narrowing. IMPRESSION:
== END 2019-02-01 09:09 ==
PROVIDERS: PCP Family Medicine; Referring Provider Family Medicine; Visit Provider Student in an Organized Health Care Education/Training Program
DX: M17.0 Bilateral primary osteoarthritis of knee (principal); Z96.642 Presence of left artificial hip joint
CPT/HCPCS: 73562; 99214; 77073

== ENCOUNTER 2019-03-27 08:48 | Outpatient (CLI) | payer MEDICARE, OTHER, SELFPAY ==
--- NOTE | 2019-03-27 08:45 | W.PREOPHP ---
Date of service: 03/27/19 Assessment and Plan Assessment and plan (1) Primary osteoarthritis of right knee: Status: Acute Assessment and plan: Right total knee replacement. Details of surgery were discussed with patient as well as risks and pertinent anatomy. All questions were answered. History of Present Illness History of Present Illness Chief Complaint: Right knee pain Narrative: Julissa is a 73-year-old female comes in today for a preop history and physical for a right total knee replacement. She has been dealing with right knee pain for many years. She is a very active person who enjoys skiing and being outdoors, but these activities have become difficult for her because of her knee pain. She states that she has pain when she is walking at all times. She has been treated conservatively by Dr. Moya with injections, but at this point injections are not providing any relief. X-rays taken in the office do reveal severe arthritis throughout all the compartments of her knee. She has [id number] arthritis medial and lateral sides as well as the patellofemoral compartment. She has bone spurring throughout. Since she has failed conservative treatment, Dr. Hunter does plan for a right total knee replacement, and Julissa is anxious to proceed. Pertinent Surgical Information Patient denies history of hypertension, CVA, MS, angina, asthma, COPD, renal or liver disorders, hepatitis, bleeding disorders, diabetes, immune or thyroid disorders. No complications from anesthesia. Review of Systems Constitutional Constitutional: Denies fever(s) ENT Ears, Nose, Mouth, and Throat: Denies dizziness and Denies sore throat Cardiovascular Cardiovascular: Denies chest pain, Denies palpitations and Denies dyspnea Respiratory Respiratory: Denies cough and Denies dyspnea Gastrointestinal Gastrointestinal: Denies abdominal pain, Denies melena, Denies hematochezia, Denies diarrhea, Denies nausea and Denies vomiting Genitourinary Genitourinary: Denies hematuria and Denies dysuria Neurologic Neurologic: Denies dizziness Endocrine Endocrine: Denies palpitations [facility] Medical History (Updated 03/27/19 @ 08:48 by MIRTA Brandt) Anxiety (Chronic) Aphthous ulcer (Chronic 01/30/14) Asthma, exercise induced (Chronic 10/03/13) Balance disorder (Chronic 08/31/17) Carotid artery stenosis (Chronic) MRI in 2004 shows carotid on the left 50-60% occlusion. vision and speech changes. 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 visual changes, repeated 2005 was normal; visual speech changes-MRI/MRA 2004 showed small vessel disease in the adali ? of ischemic disea Diverticulosis of colon without diverticulitis (Chronic) Gastroesophageal reflux disease with esophagitis (Chronic 06/27/08) 06/10/08-06/12/08 Single Capsule Loza pH study placed after EGD Lethargy (Chronic 05/11/15) Lumbago (Chronic) MRI in 1995 showed DJD and DDD. No stenosis or herniation.; 02/22/10-steroid inj. into the greater trochanteric bursa-Dr. Moya Lumbar back pain with radiculopathy affecting right lower extremity (Chronic) Neck pain (Chronic 05/31/16) Osteopenia (Chronic) dexa 2003 showing T-scores -1.6, -0.7, 1.1 Peripheral neuropathy (Chronic 09/21/15) Positive ASH (antinuclear antibody) (Chronic 06/07/16) Postoperative examination (Inactive) Right sided facial pain (Chronic) Spondylosis of lumbar region without myelopathy or radiculopathy (Chronic) Trigeminal neuralgia (Chronic 09/17/14) Vitamin D deficiency (Chronic 12/28/11) Surgical History (Updated 03/27/19 @ 08:20 by MIRTA Brandt) Appendectomy (04/17/80) Bladder Surgery (~1994) resection Bursectomy Left trochanteric Cholecystectomy (~1980) Colonoscopy - MAC (~2000) Dilation and curettage 1975 1981 EGD - MAC (~2000) Rotator Cuff Repair 12/01/17 (R) Nita Tonsillectomy and adenoidectomy as a small child 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 MCLAUGHLIN Social History Smoking/Tobacco Use Status: Never Second Hand Exposure: Yes Alcohol Intake: former Drug use: Never Substance use type: does not use Caregiver/Support person: No Household members: spouse Housing: house Pets and animals: No Do you think of yourself as: straight/heterosexual Current gender identity: decline to answer What is your relationship status?: How often do you talk on the phone with friends or family?: three or more times per week How often do you get together with friends or relatives?: once per week How often do you attend islam or denominational services?: 1-3 times per year Do you belong to any clubs or organized social groups?: yes Panel score (0-1 are the most socially isolated patients): 3 What type of physical activity do you participate in: other Details: PT 2x/week Duration: 60-90 minutes/day Frequency: 1-2 times per week Elena/Moravian: Zoroastrian Special elena needs: No Do you feel safe in your relationship?: Yes Meds Home Medications and Allergies Home Medications Medication Instructions Recorded Confirmed Type albuterol sulfate [Ventolin Hfa] 2 puff INHALATION Q4H PRN #1 09/21/15 02/25/19 History inhaler multivitamin 1 cap PO DAILY 07/14/17 02/25/19 History fluticasone propionate 1 spry NS BID #1 bottle 08/07/17 02/25/19 Rx cholecalciferol (vitamin D3) 1,000 unit PO DAILY 11/21/17 02/25/19 History [Vitamin D3] acetaminophen [Tylenol] 1,000 mg PO PRN PRN 12/01/17 02/25/19 History pejifkdw-tvphw-bzj 2-C-D3-ricardo 1 tab PO DAILY 12/01/17 02/25/19 History [Tvzvmwhcvf-Swarcsaermm-CSB Tab] nystatin 100,000 unit/gram topical 1 applic TOPICAL BID PRN #60 gm 06/19/18 02/25/19 History powder calcium carbonate 500 mg calcium 500 mg PO DAILY tab 08/20/18 02/25/19 History (1,250 mg) tablet citalopram 20 mg tablet 20 mg PO DAILY #90 tab-cap 10/15/18 02/25/19 Rx Allergies Allergy/AdvReac Type Severity Reaction Status Date / Time oxycodone HCl [From Percocet] AdvReac hallucinati Verified 03/27/19 08:08 ons Exam HENMT Head: normocephalic and atraumatic General nose exam: no nasal discharge Throat: uvula midline and no uvular edema Other: soft palate rises symmetrically, no erythema Eyes Conjunctivae: conjunctivae normal Sclera: sclerae normal Pupils: PERRL Resp Effort & Inspection: normal respiratory effort Auscultation: clear to auscultation bilaterally and no wheezes Cardio Rate: regular rate Rhythm: regular rhythm Heart Sounds: S1 normal, S2 normal and no murmurs GI Palpation: soft, no hepatosplenomegaly and nontender Auscultation: normal bowel sounds
[2019-03-27 10:25] LABS: HCT 39.5 % (36.0-46.0); HGB 13.3 g/dL (12.0-15.5); Mean Corp. HGB Concentration 33.7 g/dL (32.0-36.0); Mean Corpuscular Hemoglobin 30.6 pg (27.0-33.0); Mean Platelet Volume 9.6 fL (8.0-11.0); Platelet Count 231 x1000/uL (130-400); RBC 4.34 m/cumm (4.00-5.20); White Blood Cell Count 6.92 k/cumm (4.4-10.8)
[2019-03-27 11:34] LABS: BUN 17 mg/dL (7-18); CREATININE 0.62 mg/dL (0.55-1.02); Calcium 9.2 mg/dL (8.5-10.1); Chloride 107 mmol/L (98-107); Glucose 95 mg/dL (74-106); Potassium 4.3 mmol/L (3.5-5.1); Sodium 144 mmol/L (136-145)
== END 2019-03-27 09:08 ==
PROVIDERS: PCP Family Medicine; Visit Provider Student in an Organized Health Care Education/Training Program
DX: M25.561 Pain in right knee (principal); M17.11 Unilateral primary osteoarthritis, right knee; Z01.812 Encounter for preprocedural laboratory examination; Z01.818 Encounter for other preprocedural examination; I10 Essential (primary) hypertension; K21.9 Gastro-esophageal reflux disease without esophagitis
CPT/HCPCS: 36415; 80048; 85027; NC

== ENCOUNTER 2019-04-02 09:21 | Inpatient (IN) | payer MEDICARE, OTHER, SELFPAY ==
[2019-04-02] VITALS (13 sets, daily range): BP systolic 113–163; BP diastolic 62–79; PULSE 66–82; RESP 16–20; TEMP 36.2–36.6; O2SAT 93–97
[2019-04-02] MEDS: Gabapentin 300 MG CAP PO (10:07)
[2019-04-02] MEDS: Celecoxib 200 MG CAP 400 MG PO (10:07)
[2019-04-02] MEDS: Acetaminophen 500 MG TAB 1000 MG PO ×2 (10:07→20:11)
[2019-04-02] MEDS: Lactated Ringers 1,000 ML 80 ML IV ×3 (10:52→16:39)
[2019-04-02] MEDS: ceFAZolin 2 GM/50 ML BAG IVPB (12:36)
[2019-04-02] MEDS: Normal Saline 50 ML (13:44)
[2019-04-02] MEDS: Ketorolac 30 MG/ML VIAL (13:44)
[2019-04-02] MEDS: Bupivacaine 0.25% Pres-Free 30 ML VIAL (13:44)
[2019-04-02] MEDS: ceFAZolin 1 GM/50 ML BAG IVPB (17:30)
[2019-04-02] MEDS: Aspirin E.C. 81 MG TABEC PO (20:11)
[2019-04-02] MEDS: Celecoxib 200 MG CAP PO (20:11)
[2019-04-02] MEDS: Fluticasone NASAL SPRAY 16 GM BTL NS (20:12)
[2019-04-03] MEDS: Lactated Ringers 1,000 ML 80 ML IV (01:16)
[2019-04-03] MEDS: ceFAZolin 1 GM/50 ML BAG IVPB ×2 (01:43→09:27)
[2019-04-03 03:45] VITALS: BP 112/72; PULSE 78; RESP 16; TEMP 36.5; O2SAT 93
[2019-04-03] MEDS: Acetaminophen 500 MG TAB 1000 MG PO ×2 (07:29→13:46)
[2019-04-03] MEDS: Celecoxib 200 MG CAP PO (07:29)
[2019-04-03] MEDS: Pantoprazole 40 MG TABCR PO (07:29)
[2019-04-03] MEDS: Normal Saline Flush 10 ML SYR IV ×2 (07:29→09:27)
[2019-04-03] MEDS: Aspirin E.C. 81 MG TABEC PO (07:30)
[2019-04-03] MEDS: Fluticasone NASAL SPRAY 16 GM BTL NS (07:32)
[2019-04-03 07:40] VITALS: BP 145/77; PULSE 74; RESP 16; TEMP 36.7; O2SAT 98
--- NOTE | 2019-04-03 08:07 | ROE_ITS ---
Date of service: 04/02/19 Time of Service: 15:07 Operative Note Operative Note DATE OF PROCEDURE: 04/03/19 PRE-OP DIAGNOSIS: Right Knee Osteoarthritis POST-OP DIAGNOSIS: same PROCEDURE: Right Total Knee Replacement SURGEON: John Paul Hunter [employer] [place]: Nury Nazario ANESTHESIA: regional and spinal ESTIMATED BLOOD LOSS: 150 PATHOLOGY: none sent TOURNIQUET TIME: 34 COMPLICATIONS: None Patient was transported to: PACU Patient's condition: stable Implants: 1. Depuy Attune Posterior Stabilized Femoral Component, Size 6 2. Depuy Attune Fixed Platform Tibial Component, Size 5 3. Depuy Attune 6x7 Fixed, Stabilized Poly 4. Depuy Attune Patellar Component, Size 35 Indications: I have seen Julissa in clinic for symptoms of RIGHT knee arthritis, confirmed with radiographic findings. Julissa has exhausted nonoperative methods and was having significant limitations in daily function and desired better function and less pain. I discussed the technical details of a knee replacement. I explained the risks of the procedure to include, but not limited to, bleeding, infection, pain, stiffness, fracture, damage to nerves and vessels, damage to muscles and tendons, loosening, need for repeat procedure, blood clot and cardiopulmonary demise. Despite these risks, Julissa elected to proceed. Findings: There was significant signs of arthritis throughout the knee with notable lateral tibia osteophytes and hypoplasia of the lateral femoral condyle. Procedure Description: Julissa was greeted in the preoperative holding area where the correct side was identified and marked. The consent was reviewed with the patient and signed. The history and physical was updated. All questions were answered. Preoperative mediacations were administered: Acetaminophen 1000mg, Celebrex 400mg, and Gabapentin 300mg. An adductor canal block was then administered by the anesthesia team in the PACU. Julissa was taken back to the operating room. A spinal anesthestic was then administered. The patient was placed into the supine position on the operating room table. A nonsterile tourniquet was placed high onto the leg but only used for cementing. Posts were placed for positioning during the proc edure. All bony prominences were well padded. Prophylactic antibiotics in the form of Cefazolin were administered. 1g of Tranxemic Acid was given intravenously within 30 minutes of incision. The right leg was then prepped with Chloraprep and draped in a standard fashion with impervious stockinette. A second prep with Chloraprep was performed prior to application of Iodine impregnated skin protection. A timeout to confirm correct identity, side and site, procedure, allergies, anesthesia, and medical concerns was performed. With the knee in some flexion, a midline incision was made overlying the knee. Full thickness skin flaps were raised once the extensor mechanism was encountered. These were raised medially and laterally. Any bleeding was controlled with electrocautery. Once the extensor mechanism was fully exposed, a medial parapatellar arthrotomy was performed in a flexed position. All bleeding from the arthrotomy and the geniculate arteries was coagulated. A medial subperiosteal peel was performed with electrocautery to the midcoronal plane. The fat pad was removed while keeping the patellar tendon protected. The anterior distal femur synovium was removed for later visualization. The ACL and PCL were resected and the anterior horn of the lateral meniscus was transected. The knee was then flexed with the patella everted. Large osteophytes from the tibia were removed. Large osteophytes from the femur were removed. Using a step drill, and based on preoperative templating, the femoral canal was entered. This was done with a step drill without any difficulty. The intramedullary distal femoral cut guide was inserted, set to a 5 degree valgus cut and 9mm cut thickness. There was some hypoplasia of the lateral femoral condyle and any remnant cartilage of the medial femoral condyle was removed for appropriate thickness. The distal femoral cut guide was then held in position and pinned. With the soft tissues protected, the distal cut was performed. This was passed over a few times to ensure a planar cut. I then turned attention to the tibia. The extramedullary guide was placed onto the leg. The distal aspect was slid medial to adjust for position of center of ankle and stay in line with shaft of the tibia. Approximately 3-5 degrees of posterior slope was kept in the proximal cutting guide. The center of the guide was aligned with the PCL. The stylus was used to assess cut thickness. The lateral side was set for a 6mm cut which corresponded to 7mm of the medial side. This was then held in position and pinned into place with 2 additional pins and a cross pin for stability. The medial and lateral collateral ligaments were protected and the cut was performed. With this completed, it was assessed and noted to be of appropriate dimensions. The guide was removed. A spacer block was inserted and the knee was brought into extension. The 7mm spacer block provided full extension, without hyperextension and with stability of both the medial and lateral collateral ligaments was assessed. The pins from the femur and the tibia were then removed. The distal femur was then sized. The anterior stylus was placed onto the lateral ridge of the anterior femur. This indicated a size 6 femur. The external rotation of the guide was adjusted to 5 degrees to match the epicondylar axis, perpendicular to [place]?s line. The 4-in-1 cutting guide was the placed. The posterior medial femur cut was evaluated and appeared of good thickness. The spacer block was inserted underneath the cutting guide and stability was confirmed in 90 degrees of flexion. An madhav wing was used to confirm appropriate position of the anterior cut to avoid notching. This cutting guide was ensured to be flush on the cut surface and then pinned into place with headed pins. While protecting the soft tissues, quad tendon, and collateral ligaments, the anterior and posterior cuts were performed with a saw. The central two pins were removed and the posterior and anterior chamfers were cut next. The notch-cutting guide was placed. This was pinned to lateralize the femoral component as much as possible while keeping it flush on the cut surface. This was then pinned into position. A reciprocating saw was used to make the notch cut. A rasp smoothed the cut surfaces. A trial posterior stabilized femoral component was then inserted, impacted down to the cut surfaces, and the lug holes were drilled. A provisional trial tibial component was placed and the knee was brought through range of motion. There was noted to be excellent extension and flexion. There was no significant instability. The patella was tracking without thumbs. The tibial cut surface was fully exposed. The medial and lateral menisci were removed. The tibia was then sized as a 5. The tibia had been previously marked during trialing to correspond to the center of the tibial component to help with rotation. The trial was aligned to this bridget, approximately rotated to the medial 1/3rd of the tibial tubercle. The trial was pinned into place. The tibia was prepared with a reamer and a keel punch. The knee was then brought into extension and the patella was measured as 27mm. Using the patellar clamp and cut guide, this was resected to a flat surface with at least 13mm of thickness remaining. The size 35 patella fit the best. This was oriented and then clamped into position. The lugs were drilled. The trial components were removed. The final components, except for the polyethylene were opened on the back table. The periosteal and capsular tissues, especially posteriorly, around the knee were then systematically injected with a periarticular cocktail consisting of 50cc 0.25% Marcaine, 30mg Ketorolac, 20cc of Exparal and 50cc of injectable saline. The tourniquet was then inflated to 275mmHg. The knee was thoroughly irrigated with a pulse lavage and dried. On the back table, with the implants opened, the cement was mixed. 2 batches of antibiotic laden cement were prepared with vacuum assistance. After the cement was ready a small amount was placed on to the back side of the tibial component at the keel. A small amount was placed onto the posterior flange of the femur. Cement was manual pressurized and impregnated into the cut surface of the tibia. The tibial component was then inserted into the cut surface and impacted into position. Excess cement was removed and the component was reimpacted. Again, excess cement was removed and our attention was then turned to the femur. The femoral cut surface was once again dried and cement was manually impacted into the cut surface. The femoral component was lined with the lug holes and impacted. Excess cement was removed. It was ensured to be down against the cut surface. The trial polyethylene was then inserted and the leg was brought out into full extension for the duration of the cement curing process, approximately 15min. Cement was lastly manually impacted into the cut surface of the patella and the patellar button was clamped into position and held. During this process attention was turned to the gutters of the knee and for all interfaces for any excess cement. While the cement was hardening, the knee was irrigated with Irrisept chlorhexadine solution. This was allowed to sit in the knee for 3 minutes. After the cement had finally cured, approximately 15min, the clamp was removed from the patella and the knee was taken through range of motion. A size 7mm polyethylene component provided the best range of motion and stability with less than 2mm gapping with medial and lateral stress and full extension without significant hyperextension. The patella was tracking with a no-thumbs technique. The trial poly was removed and once again the knee was checked for any loose, excess, or errant cement. The poly component was then inserted and impacted into position after cleaning and drying the tibial tray. The capsule was then reapproximated with a No. 1 Vicryl at multiple locations. The capsule was finally closed with a No. 2 Stratafix, barbed suture. The tourniquet was then released and the arthrotomy appeared watertight without significant bleeding. The second dosing of 1g TXA was started. Deep tissues were then reapproximated with 0 Vicryl and 2-0 Vicryl. The skin was closed with a running 3-0 Monocryl in a subcuticular fashion. This was reinforced with skin glue. A Mepilex silver dressing was applied along with a grhq-ah-boham IMER wrap. A CryoCuff was applied. Julissa was transferred to the hospital bed without difficulty an suffering no apparent complication. Julissa has a good prognosis. Physical therapy will start today and without restrictions, weight-bearing as tolerated. Aspirin 81mg BID will be used for DVT prophylaxis.
[2019-04-03] MEDS: Multivitamin TAB 1 TAB PO (09:26)
[2019-04-03] MEDS: Calcium Carbonate 1.25 GM TAB PO (09:26)
[2019-04-03] MEDS: Cholecalciferol (Vitamin D3) 1,000 UNIT TAB 1000 UNITS PO (09:26)
[2019-04-03] MEDS: Citalopram 20 MG TAB PO (09:27)
--- NOTE | 2019-04-03 10:24 | IN_ITS ---
Date of service: 04/03/19 Time of Service: 09:16 PT Notes Visit Reasons: RIGHT KNEE DJD Physical Therapy Inpatient Initial Evaluation Date: 04/03/2019 Referring Doctor: John Paul Hunter MD PT Orders: PT CONSULT: Status post Ortho surgery. Status post right TKA. Precautions: Fall. Standard. WBAT Right LE. Patient Profile/Admitting Diagnosis: Patient is a 73-year-old female who is status post right total knee arthroplasty on postoperative day 1 due to degenerative joint disease of the right knee. PMHX: Medical History (Updated 03/27/19 @ 08:48 by MIRTA Brandt) Anxiety (Chronic) Aphthous ulcer (Chronic 01/30/14) Asthma, exercise induced (Chronic 10/03/13) Balance disorder (Chronic 08/31/17) Carotid artery stenosis (Chronic) MRI in 2004 shows carotid on the left 50-60% occlusion. vision and speech changes. 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 visual changes, repeated 2005 was normal; visual speech changes-MRI/MRA 2004 showed small vessel disease in the adali ? of ischemic disea Diverticulosis of colon without diverticulitis (Chronic) Gastroesophageal reflux disease with esophagitis (Chronic 06/27/08) 06/10/08-06/12/08 Single Capsule Loza pH study placed after EGD Lethargy (Chronic 05/11/15) Lumbago (Chronic) MRI in 1995 showed DJD and DDD. No stenosis or herniation.; 02/22/10-steroid inj. into the greater trochanteric bursa-Dr. Moya Lumbar back pain with radiculopathy affecting right lower extremity (Chronic) Neck pain (Chronic 05/31/16) Osteopenia (Chronic) Dexa 2003 showing T-scores -1.6, -0.7, 1.1 Peripheral neuropathy (Chronic 09/21/15) Positive ASH (antinuclear antibody) (Chronic 06/07/16) Postoperative examination (Inactive) Right sided facial pain (Chronic) Spondylosis of lumbar region without myelopathy or radiculopathy (Chronic) Trigeminal neuralgia (Chronic 09/17/14) Vitamin D deficiency (Chronic 12/28/11) Surgical History (Updated 03/27/19 @ 08:20 by MIRTA Brandt) Appendectomy (04/17/80) Bladder Surgery (~1994) resection Bursectomy Left trochanteric Cholecystectomy (~1980) Colonoscopy - MAC (~2000) Dilation and curettage 1975 1981 EGD - MAC (~2000) Rotator Cuff Repair 12/01/17 (R) Nita Tonsillectomy and adenoidectomy as a small child Total replacement of hip (11/02/16) ARNOLDO Social History/Home Situation: Patient lives with in a 1-floor house with 5 steps to enter with rails on both sides. She is independent with all aspects of ADLs without the need for an assistive ambulatory device nor adaptive equipment. Equipment Owned/DME: Front wheeled walker, raised toilet seat, shower chair. Subjective: Patient is agreeable to a PT consult. She reports tightness on the lateral and posterior aspect of the right knee. She reports tenderness on the medial aspect of the right knee. She denies headache, chest pain, and dizziness throughout PT session. She reports that she has a high bed at home and is wondering what recommendations PT has for it. She feels that she needs to stay 1 more night at this hospital just to be safe. Objective: General Observation: Patient resting on recliner. IV access still open on the right UE. Cryo/Cuff on her right knee. Gary wraps on the right knee. TEDS on left leg. Mental Status: Alert and oriented x 4 Pain: 1/10 on lateral, posterior, and medial knee ROM: Right Upper Extremity: Shoulder Flexion allows from 0-170 degrees. Shoulder abduction allows 0-170 degrees. Elbow flexion WFL. Wrist flexion WFL. Opening and closing of hand WFL. Left Upper Extremity: Shoulder Flexion WFL. Shoulder abduction WFL. Elbow flexion WFL. Wrist flexion WFL. Opening and closing of hand WFL. Right Lower Extremity: Hip flexion WFL. Hip abduction WFL. Knee flexion -8 to 100 degrees. Knee extension -8 degrees. Ankle dorsiflexion WFL. Ankle plantarflexion WFL. Left Lower Extremity: Hip flexion WFL. Hip abduction WFL. Knee flexion WFL. Ankle dorsiflexion WFL. Ankle plantarflexion WFL. Strength: Right Upper Extremity: Shoulder flexors 3-/5. Shoulder abductors 3-/5. Elbow flexors 5/5. Elbow extensors 5/5. Diet Supervisor strong. Left Upper Extremity: Shoulder flexors 5/5. Shoulder abductors 5/5. Elbow flexors 5/5. Elbow extensors 5/5. Diet Supervisor strong. Right Lower Extremity: Hip flexors 5/5. Hip abductors 5/5. Knee flexors 3- /5. Knee extensors 3- /5. Ankle dorsiflexors 5/5. Ankle plantarflexors 5/5. Left Lower Extremity:Hip flexors 5/5. Hip abductors 5/5. Knee flexors 5/5. Knee extensors 5/5. Ankle dorsiflexors 5/5. Ankle plantarflexors 5/5. Sensation: Intact as to pain and pressure on bilateral lower extremities. Bed Mobility/Transfers: Rolling independent Supine to sit independent Sit to supine independent Sit to stand supervision Stand to sit supervision Bed to chair supervision Chair to bed supervision Gait: Patient safely tolerated level surface ambulation of 370 feet using front wheeled walker requiring only SBA from this PT, minimal verbal cues provided for walker management, unsafe gait pattern and directional changes. Step length and height asymmetrical. Gait is decreased. Patient reported tenderness on medial aspect of right knee and stiffness on the posterior lateral aspect of the same knee. No LOB noted. Denies headache, chest pain, and dizziness throughout activity. Balance: Static Sitting: Normal Dynamic Sitting: Normal Static Standing: Fair Dynamic Standing: Fair Special Tests: Mobility Limitations Standardized Measure [facility] AM-PAC 6 clicks Basic Mobility Inpatient Short Form: Raw Score: 23 CMS Score: 11% deficit Informed Consent/Education: Patient instructed in purpose of PT consult and plan of care. Patient was educated and trained on safe techniques and climbing in and out of bed as she reports that she has a high bed at home patient was also given recommendations regarding the use of a wide and stable stepstool in order to optimally and safely get in and out of bed. Assessment: Patient is a 73-year-old female who is status post right total knee arthroplasty on postoperative day 1 due to degenerative joint disease of the right knee now presenting with impairments and functional limitations as listed below. Patient is motivated to return to prior level of function, has good family support, and has a premorbid independent level. Her prognosis for regaining prior level of function is good. Patient presents with clinical signs and symptoms consistent with current/admitting diagnoses that have resulted to mobility limitations, gait instability, generalized weakness, and impairment of motor control as demonstrated by the following impairment level findings: 1. Decreased strength to R knee major muscle groups 2. Impaired standing balance 3. Impaired activity tolerance 4. Limitation of joint range of motion in right knee Impairments are contributing to the following functional limitations: 3. Inability to safely ambulate without assistive device and physical assistance 4. Increase completion time for mobility ADL performance 5. Increased fall risk 6. Inability to negotiate steps alone safely Patient is assessed as a 9716 to moderate complexity based on the following: History: Patient is a 73-year-old female who is status post right total knee arthroplasty on postoperative day 1 due to degenerative joint disease of the right knee with past medical history as listed above Examination: Demonstrable impairment in strength, balance, and range of motion with underlying impairments and functional limitations as documented above Presentation: Evolving Decision Makin moderate complexity Goals: Goals X1 week 1. Supine-Sit independent 2. Sit-Supine independent 3. Sit-Stand independent 4. Stand-Sit independent 5. Bed-Chair independent 6. Chair-Bed independent 7. Independent gait on level surface with use of least restrictive device for at least 300 feet without report of pain nor dyspnea 8. Independent stair negotiation while holding onto bilateral rails for at least 10 steps without report of pain nor dyspnea 9. Independent with home exercise program 10. Good static and dynamic standing balance/tolerance Plan of Care/Treatment Plan: 1-2x/day, 7 days/week x 1 week. Plan of care has been reviewed with the UNDERWATER PHOTOGRAPHER providing the service under Physical Therapy direction. Initiate Physical Therapy intervention for strengthening, bed mobility, transfers, gait, stairs, balance training, use of assistive device. DISCHARGE RECOMMENDATIONS: May benefit from skilled physical therapy services according to orthopedic surgeon's timeline recommendations. Patient will be educated and trained on home exercise program per [facility] exercise protocol in preparation for outpatient physical therapy services. TREATMENT CODE/TIME: 10182 x 38 minutes beginning at 9:16 AM. Thank you very much for this referral. Malu Navarro PT, DPT, CLT [facility] [place], [place]
--- NOTE | 2019-04-03 11:00 | INITIAL_ITS ---
Care Management Initial Assess REASON FOR HOSPITALIZATION:: Right Knee DJD PAST MEDICAL HISTORY/PAST SURGICAL HISTORY:: Right rotator cuff repair and near acromioplasty, related to a right rotator cuff tear. PREVIOUS FUNCTIONAL STATUS/SOCIAL/FAMILY SUPPORTS:: Julissa resides in [place], [place] with her , Shaq. She has a daughter who resides locally as well as two grandsons. She is independent at baseline with ADLs, transportation, and meals and IADLs. CURRENT FUNCTIONAL STATUS:: Julissa was sitting up in her chair, visiting with a friend. PT reports she is cleared for discharge and will likely return home today with OP PT follow up. ADVANCE DIRECTIVES:: On file at [facility] Has patient been provided with information about the portal?: Yes Did the patient sign up for the portal?: No CODE STATUS:: Full Code INSURANCE COVERAGE / FINANCIAL ISSUES:: Medicare and bankTriporati life CURRENT HOME/COMMUNITY SERVICES/EQUIPMENT:: [facility]WW. PRIMARY CARE PHYSICIAN:: Mellissa Garnett DO POTENTIAL DISCHARGE NEEDS:: PT evaluation, follow up appointment with Dr. Hunter. PATIENT/FAMILY EDUCATION NEEDS:: Review of discharge instructions, discuss Ask Me Three. ANTICIPATED BARRIERS TO DISCHARGE:: None identified, she will be monitored for pain management and progressing mobility to ensure safe discharge planning. TRANSPORTATION:: Via private vehicle with family. PLAN:: Julissa will be closely monitored post operatively. She will be evaluated by physical therapy and follow up with Dr. Hunter. CM will continue to follow and support discharge planning considerations. Anticipate Julissa will transport home via private vehicle with family.
--- NOTE | 2019-04-03 11:04 | DSE_ITS ---
Date of service: 04/03/19 Time of Service: 11:05 DS: Diagnosis Discharge Diagnosis (1) Primary osteoarthritis of right knee: Status: Acute Discharge Plan Disposition Patient Disposition: HOME Condition: Good Discharge Details Reason For Visit: RIGHT KNEE DJD Admit Date/Time: 04/02/19 09:21 Admit Provider: John Paul Hunter Attending Provider: John Paul Hunter Primary Care Provider: Mellissa Garnett [facility] Course Hospital Course: Patient was admitted to the medical/surgical floor following the procedure. It was tolerated well without any notable medical, surgical, or anesthetic complications. Mobilization began postoperatively. The hurley catheter was removed and voiding spontaneously. Vitals were stable. Physical therapy worked with the patient and was cleared for discharge home. No acute medical issues. Home Meds and New Rx's Prescriptions: New celecoxib 200 mg capsule 200 mg PO BID PRN (Reason: pain) Qty: 60 RF: 1 aspirin 81 mg tablet,delayed release (DR/EC) 81 mg PO BID Qty: 60 RF: 0 acetaminophen 500 mg tablet 1,000 mg PO Q8H PRN (Reason: pain) Qty: 90 RF: 3 hydromorphone 2 mg tablet 1 - 2 mg PO Q4H PRN (Reason: pain) Qty: 15 RF: 0 pantoprazole 40 mg tablet,delayed release (DR/EC) 40 mg PO DAILY Qty: 30 RF: 0 gabapentin 300 mg capsule 300 mg PO QHS Qty: 7 RF: 0 Continued citalopram 20 mg tablet 20 mg PO DAILY Qty: 90 RF: 12 calcium carbonate [Calcium 500] 500 mg calcium (1,250 mg) tablet 500 mg PO DAILY RF: 0 albuterol sulfate [Ventolin HFA] 8 GM HFA aerosol inhaler 2 puff Inhalation Q4H PRN Qty: 1 RF: 12 fluticasone propionate 16 GM spray,suspension 1 spry NS BID Qty: 1 RF: 12 nystatin 100,000 unit/gram powder 1 applic Topical BID PRNQty: 60 RF: 12 multivitamin 1 EACH capsule 1 cap PO DAILY RF: 0 cholecalciferol (vitamin D3) [Vitamin D3] 1,000 UNIT capsule 1,000 unit PO DAILY RF: 0 Miqbimlm-[id number]-TMH with vit D 1 EACH tablet 1 tab PO DAILY RF: 0 Discontinued acetaminophen [Mapap Extra Strength] 500 MG tablet 1,000 mg PO PRN PRNRF: 0 Discharge Instructions Additional Instructions: Dr. Hunter?s Total Knee Discharge Instructions Activity: The most important activity is to walk. You should try to take short walks a few times a day. It is important that when resting you work on keeping the knee straight. Avoid putting a pillow behind the knee as this will encourage flexion. Work on range of motion exercises as provided by Physical Therapy. - Start outpatient physical therapy within 2 weeks. - You should wear the WAYNE hose on both legs for 2 weeks. Dressing: Keep the surgical dressing in place for at least one week. After the first week it may be removed and replace with light gauze and tape or nothing. It may get wet after 3 days but avoid soaking the dressing. If it gets wet, just lightly pat dry. Medications: - You should take Tylenol and anti-inflammatory Celebrex as your primary pain control medications - You have been prescribed a stronger pain medication Hydromorphone for breakthrough pain, take as needed as prescribed. - You have also been prescribed a stomach acid reduction agent Pantoprozole to help reduce stomach acid and reflux. - You will be taking Aspirin 81mg twice a day for DVT prevention unless instructed otherwise. - If you have constipation you should take Colace or Miralax (both [id number]). It takes most people 3-4 days to have a bowel movement. Follow-up: 2 weeks Referrals: John Paul Hunter MD [ [facility] STAFF PHYSICIAN] - Activity:: Activity as Tolerated Equipment/Supplies:: Walker Diet:: As Tolerated Discharge Orders Discharge Orders: Discharge Order (Routine); Ordered 04/03/19 Ordered By: John Paul Hunter Discharge Data Discharge Comment: Remove IMER wrap prior to discharge and apply WAYNE DS: Summary Status at Discharge Functional status at discharge: uses cane/walker Overall status at discharge: patient is progressing back to baseline Mental Status: mental status grossly normal Speech and Movement: speech and movement normal Mood: congruent mood Affect: normal affect Exam Psych Mental Status: mental status grossly normal Speech and Movement: speech and movement normal Mood: congruent mood Affect: normal affect DS: Data Vitals/I&O Vitals and I&O: Vital Signs Temperature 36.7 C 04/03/19 07:40 Temperature Source Skin 04/03/19 07:40 Pulse 74 04/03/19 07:40 Pulse Rhythm Regular 04/03/19 07:45 Respiratory Rate 16 04/03/19 07:40 Respiratory Effort 04/03/19 07:45 Respiratory Depth Normal 04/03/19 07:45 Respiratory Pattern Normal 04/03/19 07:45 Blood Pressure 145/77 H 04/03/19 07:40 Pulse Oximetry 98 04/03/19 07:40 Respiratory End-tidal CO2 38 04/02/19 15:27 Oxygen Delivery Method Room Air 04/03/19 07:40 Oxygen Flow Rate 0 04/03/19 07:40 Pain Level 0 04/03/19 07:40 Intake & Output 04/02/19 04/02/19 04/03/19 11:59 23:59 11:59 Intake Total 2636.666 / 2636.666 1364.666 / 1364.666 Output Total 1400 / 1400 1275 / 1275 Balance 1236.666 / 1236.666 89.666 / 89.666 Weight 93.5 kg Intake: IV 1706.666 / 1182.019 2491.666 / 1244.666 Oral 930 / 930 120 / 120 Output: Urine 1250 / 1250 1275 / 1275 Estimated Blood Loss 150 / 150 Other: Urine Color Straw Pale Urine Appearance Clear Clear Emesis Description None PFSH Medical History Anxiety (Chronic) Aphthous ulcer (Chronic 01/30/14) Asthma, exercise induced (Chronic 10/03/13) Balance disorder (Chronic 08/31/17) Carotid artery stenosis (Chronic) MRI in 2004 shows carotid on the left 50-60% occlusion. vision and speech changes. 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 visual changes, repeated 2005 was normal; visual speech changes-MRI/MRA 2004 showed small vessel disease in the adali ? of ischemic disea Diverticulosis of colon without diverticulitis (Chronic) Gastroesophageal reflux disease with esophagitis (Chronic 06/27/08) 06/10/08-06/12/08 Single Capsule Loza pH study placed after EGD Lethargy (Chronic 05/11/15) Lumbago (Chronic) MRI in 1995 showed DJD and DDD. No stenosis or herniation.; 02/22/10-steroid inj. into the greater trochanteric bursa-Dr. Moya Lumbar back pain with radiculopathy affecting right lower extremity (Chronic) Neck pain (Chronic 05/31/16) Osteopenia (Chronic) dexa 2003 showing T-scores -1.6, -0.7, 1.1 Peripheral neuropathy (Chronic 09/21/15) Positive ASH (antinuclear antibody) (Chronic 06/07/16) Postoperative examination (Inactive) Right sided facial pain (Chronic) Spondylosis of lumbar region without myelopathy or radiculopathy (Chronic) Trigeminal neuralgia (Chronic 09/17/14) Vitamin D deficiency (Chronic 12/28/11) Surgical History Appendectomy (04/17/80) Bladder Surgery (~1994) resection Bursectomy Left trochanteric Cholecystectomy (~1980) Colonoscopy - MAC (~2000) Dilation and curettage 1975 1981 EGD - MAC (~2000) History of right shoulder replacement (Acute) Hx of shoulder replacement (Acute) [facility] [place]. Segundo. August 2018 Rotator Cuff Repair 12/01/17 (R) Nita Tonsillectomy and adenoidectomy as a small child 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 MCLAUGHLIN LEFT total hip not right. Family History Mother , 89 Essential hypertension Heart disease Hyperlipidemia Stroke Father , 5 Rriud-[id number]-wkfdzfheedy deficiency liver Diabetes Asthma Sister , 54 Bghig-[id number]-wyiamyfbjov deficiency lungs Lung transplanted B/L Sister Essential hypertension Hyperlipidemia Asthma A CHILD Maternal Grandfather , 89 Diabetes Essential hypertension Depression Paternal Grandfather Heart disease Asthma Maternal Grandmother , 71 Essential hypertension Hyperlipidemia Stroke Paternal Grandmother , 83 Essential hypertension Heart disease Hyperlipidemia Stroke Daughter No problems noted. Social History Smoking/Tobacco Use Status: Never Second Hand Exposure: Yes Alcohol Intake: former Drug use: Never Substance use type: does not use Caregiver/Support person: No Household members: spouse Housing: house Pets and animals: No Do you think of yourself as: straight/heterosexual Current gender identity: decline to answer What is your relationship status?: How often do you talk on the phone with friends or family?: three or more times per week How often do you get together with friends or relatives?: once per week How often do you attend jew or faith services?: 1-3 times per year Do you belong to any clubs or organized social groups?: yes Panel score (0-1 are the most socially isolated patients): 3 What type of physical activity do you participate in: other Details: PT 2x/week Duration: 60-90 minutes/day Frequency: 1-2 times per week Elena/Latter Day: Restoration Special elena needs: No Do you feel safe in your relationship?: Yes
--- NOTE | 2019-04-03 14:13 | PDOC.CMDIS ---
LACE Index Scoring Tool - Questions: Length of Stay (in days): 1 Acuity (Admit via E.D.?): No E.D. Visits: 2 - Answers: Total Score: 3 Risk of Readmission: Low Risk Care Management Discharge Reason for Hospitalization: Right Knee DJD Discharge Plan: Julissa will return home when ready per MD and follow up with Dr. Hunter. Julissa will transport home via private vehicle with family. Patient/Family Education Needs: Review discharge instructions, discuss Ask Me Three.
--- NOTE | 2019-04-03 14:56 | PT.INTREAT ---
Date of service: 04/03/19 Time of Service: 14:56 PT Notes Visit Reasons: RIGHT KNEE DJD Inpatient Physical Therapy Treatment Note [facility] Date: 04/03/2019 PRECAUTIONS: Fall, WBAT R SUBJECTIVE: Julissa states that she is feeling good, with limited pain in right knee. She is planning on discharging to home this afternoon. OBJECTIVE: PAIN: Patient complains of posterolateral right knee pain with gait training BED MOBILITY/TRANSFERS Supine-sit: I with HOB flat Sit-supine: I with HOB flat Sit-stand: I Stand-sit: I GAIT Assistive Device: FWW Weight bearing: WBAT R Assist: S Distance: 80' +100' STAIRS: Up/down 3?4 and 2?6 using B rails and a step to pattern, independently TOILETING: Patient toileted independently ASSESSMENT: Patient tolerated session well with posterolateral right knee pain with gait training. She was able to demonstrate independence with bed mobility, transfers, and toileting at this time. PLAN: As per primary PT TREATMENT CODE/TIME: 25 minutes; 02015 x2
--- NOTE | 2019-04-04 10:53 | INDS_ITS ---
Date of service: 04/04/19 Time of Service: 10:53 PT Notes Visit Reasons: RIGHT KNEE DJD Inpatient Physical Therapy Discharge Summary Dates: 04/04/2019 Dates of Service: 04/03/2019 only This is a clinical summary of care provided on the duration of dates listed above. No charge was made in the completion of this documentation. Referring Doctor: John Paul Hunter MD PT Orders: PT CONSULT: Status post Ortho surgery. Status post right TKA. Precautions: Fall. Standard. WBAT Right LE. Patient Profile/Admitting Diagnosis: Patient is a 73-year-old female who is status post right total knee arthroplasty on postoperative day 1 due to degenera tive joint disease of the right knee. PMHX: Medical History (Updated 03/27/19 @ 08:48 by MIRTA Brandt) Anxiety (Chronic) Aphthous ulcer (Chronic 01/30/14) Asthma, exercise induced (Chronic 10/03/13) Balance disorder (Chronic 08/31/17) Carotid artery stenosis (Chronic) MRI in 2004 shows carotid on the left 50-60% occlusion. vision and speech changes. 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 visual changes, repeated 2005 was normal; visual speech changes-MRI/MRA 2004 showed small vessel disease in the adali ? of ischemic disea Diverticulosis of colon without diverticulitis (Chronic) Gastroesophageal reflux disease with esophagitis (Chronic 06/27/08) 06/10/08-06/12/08 Single Capsule Loza pH study placed after EGD Lethargy (Chronic 05/11/15) Lumbago (Chronic) MRI in 1995 showed DJD and DDD. No stenosis or herniation.; 02/22/10-steroid inj. into the greater trochanteric bursa-Dr. Moya Lumbar back pain with radiculopathy affecting right lower extremity (Chronic) Neck pain (Chronic 05/31/16) Osteopenia (Chronic) Dexa 2003 showing T-scores -1.6, -0.7, 1.1 Peripheral neuropathy (Chronic 09/21/15) Positive ASH (antinuclear antibody) (Chronic 06/07/16) Postoperative examination (Inactive) Right sided facial pain (Chronic) Spondylosis of lumbar region without myelopathy or radiculopathy (Chronic) Trigeminal neuralgia (Chronic 09/17/14) Vitamin D deficiency (Chronic 12/28/11) Surgical History (Updated 03/27/19 @ 08:20 by MIRTA Brandt) Appendectomy (04/17/80) Bladder Surgery (~1994) resection Bursectomy Left trochanteric Cholecystectomy (~1980) Colonoscopy - MAC (~2000) Dilation and curettage 1975 1981 EGD - MAC (~2000) Rotator Cuff Repair 12/01/17 (R) Nita Tonsillectomy and adenoidectomy as a small child Total replacement of hip (11/02/16) ARNOLDO Social History/Home Situation: Patient lives with in a 1-floor house with 5 steps to enter with rails on both sides. She is independent with all aspects of ADLs without the need for an assistive ambulatory device nor adaptive equipment. Equipment Owned/DME: Front wheeled walker, raised toilet seat, shower chair. Subjective:NT Objective: General Observation:NT Mental Status: NT Pain: NT independent ROM: Right Upper Extremity: Shoulder Flexion allows from 0-170 degrees. Shoulder abduction allows 0-170 degrees. Elbow flexion WFL. Wrist flexion WFL. Opening and closing of hand WFL. Left Upper Extremity: Shoulder Flexion WFL. Shoulder abduction WFL. Elbow flexion WFL. Wrist flexion WFL. Opening and closing of hand WFL. Right Lower Extremity: Hip flexion WFL. Hip abduction WFL. Knee flexion -8 to 100 degrees. Knee extension -8 degrees. Ankle dorsiflexion WFL. Ankle plantarflexion WFL. Left Lower Extremity: Hip flexion WFL. Hip abduction WFL. Knee flexion WFL. Ankle dorsiflexion WFL. Ankle plantarflexion WFL. Strength: Right Upper Extremity: Shoulder flexors 3-/5. Shoulder abductors 3-/5. Elbow flexors 5/5. Elbow extensors 5/5. Camera Systems Engineer strong. Left Upper Extremity: Shoulder flexors 5/5. Shoulder abductors 5/5. Elbow flexors 5/5. Elbow extensors 5/5. Camera Systems Engineer strong. Right Lower Extremity: Hip flexors 5/5. Hip abductors 5/5. Knee flexors 3- /5. Knee extensors 3- /5. Ankle dorsiflexors 5/5. Ankle plantarflexors 5/5. Left Lower Extremity:Hip flexors 5/5. Hip abductors 5/5. Knee flexors 5/5. Knee extensors 5/5. Ankle dorsiflexors 5/5. Ankle plantarflexors 5/5. Sensation: Intact as to pain and pressure on bilateral lower extremities. Bed Mobility/Transfers: Rolling independent Supine to sit independent Sit to supine independent Sit to stand independent Stand to sit independent Bed to chair independent Chair to bed independent Gait: Patient safely tolerated level surface ambulation of 80 feet and 100 feet using front wheeled walker requiring only supervision. Patient also tolerated up-and-down three 4 inch steps and two 6 inch steps while holding onto bilateral rails using step to gait pattern independently. Balance: Static Sitting: Normal Dynamic Sitting: Normal Static Standing: Fair Dynamic Standing: Fair Assessment: Patient is a 73-year-old female who is status post right total knee arthroplasty on postoperative day 1 due to degenerative joint disease of the right knee now presenting with impairments and functional limitations as listed below. Patient is motivated to return to prior level of function, has good family support, and has a premorbid independent level. Her prognosis for regaining prior level of function is good. Patient continues to present with clinical signs and symptoms consistent with current/admitting diagnoses that have resulted to mobility limitations, gait instability, generalized weakness, and impairment of motor control as demonstrated by the following impairment level findings: 1. Decreased strength to R knee major muscle groups 2. Impaired standing balance 3. Impaired activity tolerance 4. Limitation of joint range of motion in right knee Impairments cotninue to contribute to the following functional limitations: 3. Inability to safely ambulate without assistive device and physical assistance 4. Increase completion time for mobility ADL performance 5. Increased fall risk 6. Inability to negotiate steps alone safely Goals: Goals X1 week 1. Supine-Sit independent MET 2. Sit-Supine independent MET 3. Sit-Stand independent MET 4. Stand-Sit independent MET 5. Bed-Chair independent MET 6. Chair-Bed independent MET 7. Independent gait on level surface with use of least restrictive device for at least 300 feet without report of pain nor dyspnea NOT MET 8. Independent stair negotiation while holding onto bilateral rails for at least 10 steps without report of pain nor dyspnea NOT MET 9. Independent with home exercise program NOT MET 10. Good static and dynamic standing balance/tolerance NOT MET DISCHARGE RECOMMENDATIONS: D?C to home today per orthopedic surgeon's order. May benefit from skilled physical therapy services according to orthopedic surgeon's timeline recommendations. Patient will be educated and trained on home exercise program per [facility] exercise protocol in preparation for outpatient physical therapy services. TREATMENT CODE/TIME: NC. Thank you very much for this referral. Malu Navarro PT, DPT, CLT [facility] [place], [place]
== END 2019-04-03 14:31 | disposition home or self-care (01) | DRG 470 ==
LOC: PDS 09:22 → MS 16:02
PROVIDERS: Admitting Provider Student in an Organized Health Care Education/Training Program; PCP Family Medicine; Visit Provider Student in an Organized Health Care Education/Training Program
PROC: 0SRC0J9 Replacement of Right Knee Joint with Synthetic Substitute, Cemented, Open Approach (ICD-10-PCS; CPT 27447; principal; 2019-04-02 12:15)
DX: M17.11 Unilateral primary osteoarthritis, right knee (principal); M25.561 Pain in right knee; Z96.651 Presence of right artificial knee joint; G89.18 Other acute postprocedural pain; K21.0 Gastro-esophageal reflux disease with esophagitis; F41.9 Anxiety disorder, unspecified; G62.9 Polyneuropathy, unspecified; J45.909 Unspecified asthma, uncomplicated
CPT/HCPCS: 27447; 97162; 97530; NC; J0690; J1100; J1885; J2250; J2405

== ENCOUNTER → 2019-04-08 14:13 | Outpatient (BNVA) | payer MEDICARE, OTHER, SELFPAY | PROVIDERS: PCP Family Medicine; Referring Provider Family Medicine; Visit Provider Student in an Organized Health Care Education/Training Program | DX: Z47.1 Aftercare following joint replacement surgery (principal); Z96.651 Presence of right artificial knee joint ==

== ENCOUNTER 2019-04-22 14:22 | Outpatient (CLI) | payer MEDICARE, OTHER, SELFPAY ==
--- NOTE | 2019-04-22 13:22 | DI.RAD_ITS ---
EXAM: XR KNEE RT 1V INDICATION: 1st post op. COMPARISON: XR KNEE LT 3V AP,LAT,TITI from 02/01/2019 TECHNIQUE: 2D digital imaging was performed. FINDINGS: A right total knee prosthesis is seen. No abnormal bony lucencies are identified.
--- NOTE | 2019-04-22 13:24 | DI.RAD_ITS ---
EXAM: XR STANDING ALIGNMENT INDICATION: 1st post op. COMPARISON: No exams were available for comparison TECHNIQUE: 2D digital imaging was performed. FINDINGS: There is a left hip prosthesis and a right knee prosthesis. There is no significant leg length discr epancy. There are degenerative changes of the medial femoral tibial joint and mild degenerative brown ges of both ankles. The right hip joint space is well maintained.
== END 2019-04-22 14:42 ==
PROVIDERS: PCP Family Medicine; Referring Provider Family Medicine; Visit Provider Student in an Organized Health Care Education/Training Program
DX: Z96.642 Presence of left artificial hip joint (principal); Z96.651 Presence of right artificial knee joint; Z47.1 Aftercare following joint replacement surgery
CPT/HCPCS: 73560; 77073

== ENCOUNTER 2019-05-07 10:12 | Outpatient (CLI) | payer MEDICARE, OTHER, SELFPAY ==
[2019-05-07 13:27] LABS: Abs Immature Grans 0.01 k/cumm (0.0-0.09); Absolute Basophil Count 0.02 k/cumm (0.0-0.2); Absolute Eosinophil Count 0.05 k/cumm (0.0-0.7); Absolute Lymphocyte Count 1.11 k/cumm (1.2-3.4); Absolute Monocyte Count 0.57 k/cumm (0.11-0.7); Absolute Neutrophil Count 6.03 k/cumm (1.2-6.7); Basophils % 0.3; Eosinophils % 0.6; HCT 38.5 % (36.0-46.0); HGB 12.5 g/dL (12.0-15.5); Immature Grans % 0.1 %; Lymphocytes % 14.2; Mean Corp. HGB Concentration 32.5 g/dL (32.0-36.0); Mean Corpuscular Hemoglobin 30.3 pg (27.0-33.0); Mean Corpuscular Volume 93.2 fL (80-95); Mean Platelet Volume 9.8 fL (8.0-11.0); Monocytes % 7.3; Neutrophils % 77.5; Platelet Count 263 x1000/uL (130-400); RBC 4.13 m/cumm (4.00-5.20); RBC Distribution Width 13.2 % (11.7-14.6); White Blood Cell Count 7.79 k/cumm (4.4-10.8)
[2019-05-07 14:07] LABS: ALT 21 U/L (14-59); AST 23 U/L (15-37); Albumin 3.8 g/dL (3.4-5.0); Alkaline Phosphatase 118 U/L (46-116); Anion Gap 8.7 mmol/L (3-11); BUN 14 mg/dL (7-18); Bilirubin, Total 0.4 mg/dL (0.2-1.0); CO2 28.3 mmol/L (21.0-32.0); CREATININE 0.54 mg/dL (0.55-1.02); Calcium 9.4 mg/dL (8.5-10.1); Chloride 107 mmol/L (98-107); Glucose 98 mg/dL (74-106); Sodium 144 mmol/L (136-145)
[2019-05-07 14:13] LABS: Hemoglobin A1C 5.3 % (3.8-5.6)
== END 2019-05-07 10:32 ==
PROVIDERS: PCP Family Medicine; Visit Provider Family Medicine
DX: I10 Essential (primary) hypertension (principal); E11.9 Type 2 diabetes mellitus without complications; R51 Headache; M47.816 Spondylosis without myelopathy or radiculopathy, lumbar region
CPT/HCPCS: 36415; 80053; 83036; 83735; 84443; 85025

== ENCOUNTER 2019-05-07 10:52 | Outpatient (CLI) | payer MEDICARE, OTHER, SELFPAY ==
--- NOTE | 2019-05-07 11:42 | DI.CT_ITS ---
EXAM: CT HEAD WO CLINICAL HISTORY: worst headache of life, R51 TECHNIQUE: COMPARISON: CT sinus wo from 06/21/2018 FINDINGS: Noncontrast cranial CT was performed. There is moderate generalized cerebral atrophy and there are p atchy areas of decreased attenuation in periventricular white matter consistent with microvascular is chemic changes. No evidence of acute intracranial hemorrhage, mass effect, or midline shift. The or bital and temporal bone structures appear intact. Paranasal sinuses and mastoid air cells appear darrick ar. IMPRESSION: Cerebral atrophy and presumed microvascular ischemic changes, no evidence of acute process.
== END 2019-05-07 11:12 ==
PROVIDERS: PCP Family Medicine; Visit Provider Family Medicine
DX: R51 Headache (principal); G31.89 Other specified degenerative diseases of nervous system; I67.82 Cerebral ischemia; I10 Essential (primary) hypertension; E11.9 Type 2 diabetes mellitus without complications; M47.816 Spondylosis without myelopathy or radiculopathy, lumbar region
CPT/HCPCS: 36415; 80053; 70450; 83036; 83735; 84443; 85025

== ENCOUNTER → 2019-05-13 12:43 | Outpatient (BNVA) | payer MEDICARE, OTHER, SELFPAY | PROVIDERS: PCP Family Medicine; Referring Provider Family Medicine; Visit Provider Student in an Organized Health Care Education/Training Program | DX: Z96.651 Presence of right artificial knee joint (principal); Z47.1 Aftercare following joint replacement surgery ==

== ENCOUNTER 2019-05-16 08:26 | Outpatient (CLI) | payer MEDICARE, OTHER, SELFPAY ==
[2019-05-16 12:41] LABS: ESR 16 mm/hr (0-30)
== END 2019-05-16 08:46 ==
PROVIDERS: PCP Family Medicine; Visit Provider Family Medicine
DX: R51 Headache (principal)
CPT/HCPCS: 36415; 85652

== ENCOUNTER 2019-06-05 02:31 | Outpatient (CLI) | payer MEDICARE, OTHER, SELFPAY ==
--- NOTE | 2019-06-05 08:00 | DI.CT_ITS ---
EXAM: CT SINUS WO CLINICAL HISTORY: persistent sinus pain,CHRONIC SINUSITIS, J32.9, SINUS INFECTION COMPARISON: CT HEAD WO from 05/07/2019 FINDINGS: The frontal sinuses are clear. The ethmoid air cells are clear. There is mild mucosal thickening in the lower right maxillary sinus. The left maxillary sinus is darrick ar. The sphenoid sinuses are clear. The mastoid air cells are clear. The nasal septum mildly deviates to the right. The ostiomeatal complexes are unremarkable. The turb inates are unremarkable. The orbits and retro-orbital soft tissues are unremarkable. IMPRESSION: Mild sinus disease in the right maxillary sinus.
== END 2019-06-05 02:51 ==
PROVIDERS: PCP Family Medicine; Visit Provider Family Medicine
DX: J32.0 Chronic maxillary sinusitis
CPT/HCPCS: 70486

== ENCOUNTER → 2019-06-24 08:40 | Outpatient (BNVA) | payer MEDICARE, OTHER, SELFPAY | PROVIDERS: PCP Family Medicine; Referring Provider Family Medicine; Visit Provider Student in an Organized Health Care Education/Training Program | DX: Z96.651 Presence of right artificial knee joint (principal); Z47.1 Aftercare following joint replacement surgery ==

== ENCOUNTER 2019-10-21 11:11 | Outpatient (REF) | payer MEDICARE, OTHER, SELFPAY ==
--- NOTE | 2019-10-21 09:13 | SKI_PTH ---
PATIENT: Julissa Etienne LOC: [facility] U#:[id number] AGE/SX: 74/F ROOM: RE10/21/[address]: Tank Lazcano DO : 1945 BED: DIS: 10/21/2019 SPEC #: [id number] RECD: 10/22/19 12:44 STATUS: KARMEN REQ #: [id number] ELIAS: 10/21/19 09:[address]: Tank Lazcano DEPT: Surgical Specimen RECD BY: Zuly Multani ENTERED: 10/22/19 12:45 SP TYPE: JOEL JUÁREZ DR: Mellissa Garnett MD, DC Tissues: 1 - SKIN BIOPSY(SHAVE/PUNCH) Procedures: SKIN LEVEL 4 Comments: [id number]
== END 2019-10-21 11:31 ==
LOC: LBN 11:11
PROVIDERS: PCP Family Medicine; Referring Provider Family Medicine; Visit Provider Otolaryngology Otolaryngology/Facial Plastic Surgery
DX: L82.1 Other seborrheic keratosis (principal)
CPT/HCPCS: 88305

== ENCOUNTER 2019-10-22 19:07 | Outpatient (REF) | payer MEDICARE, OTHER, SELFPAY ==
[2019-10-22 14:50] LABS: Bilirubin Negative (Negative); Blood Trace-lysed (Negative); Clarity Cloudy (Clear); Glucose Negative (Negative); Ketones Negative (Negative); Leukocyte Esterase Negative (Negative); Nitrite Negative (Negative); Specific Gravity 1.025 (1.005-1.025); Urobilinogen 0.2 EU/dL (Up TO 0.2); pH 5.5 (5-8)
[2019-10-22 15:08] LABS: Epithelial Cells Few HPF (Negative); RBC 0-2 HPF (0-2); WBC 0-2 HPF (0-5)
[2019-10-22 15:09] LABS: Bacteria Few HPF (Negative); Other Cells Few Renal (Negative)
[2019-10-22 15:11] LABS: C & S Indicated? No; Casts Negative LPF (Negative); Mucus Moderate (Negative)
== END 2019-10-22 19:27 ==
LOC: LBN 19:07
PROVIDERS: PCP Family Medicine; Visit Provider Family Medicine
DX: R10.9 Unspecified abdominal pain (principal); R82.998 Other abnormal findings in urine
CPT/HCPCS: 81003; 81015

== ENCOUNTER 2020-03-03 21:00 | Outpatient (CLI) | payer MEDICARE, OTHER, SELFPAY ==
--- NOTE | 2020-03-03 14:32 | DI.RAD_ITS ---
EXAM: XR LUMBAR SPINE COMPLETE CLINICAL HISTORY: LBP M54.5 LOW BACK PAIN,. TECHNIQUE: 2D digital imaging was performed. COMPARISON: No exams were available for comparison FINDINGS: There are 5 lumbar type vertebral bodies. There is no spondylolysis or spondylolisthesis. At all le vels of the lumbar spine there is disc space narrowing, subchondral sclerosis and endplate osteophyte s. No acute fracture or subluxation is seen. Degenerative changes are seen of the facets throughout . Surgical clips are seen in the right upper quadrant consistent with prior cholecystectomy. The pa tient has a left total hip replacement. Atherosclerosis is present. IMPRESSION: No acute fracture or subluxation in the lumbar spine. DATA REPOSITORY: RADIATION DOSE DELIVERED:
== END 2020-03-03 21:20 ==
PROVIDERS: PCP Family Medicine; Visit Provider Family Medicine
DX: M54.5 Low back pain (principal)
CPT/HCPCS: 72110

== ENCOUNTER 2020-03-04 05:03 | Outpatient (CLI) | payer MEDICARE, OTHER, SELFPAY ==
[2020-03-04 13:01] LABS: HCT 40.7 % (36.0-46.0); HGB 13.5 g/dL (11.2-15.7); MCH 30.7 pg (27.0-33.0); MCHC 33.2 % (32.0-36.0); MCV 92.5 fL (80-95); MPV 10.7 fL (8.0-11.0); Platelet Count 216 10^3/uL (130-400); RDW 12.7 % (11.7-14.6); RDW-SD 42.8 fL; WBC 7.26 10^3/uL (4.4-10.8)
[2020-03-04 13:28] LABS: TSH (W/Ref FT4) 1.94 uIU/mL (0.36-3.74)
[2020-03-04 15:36] LABS: ESR 12 mm/hr (0-30)
== END 2020-03-04 05:23 ==
PROVIDERS: PCP Family Medicine; Visit Provider Family Medicine
DX: F41.9 Anxiety disorder, unspecified (principal); M79.18 Myalgia, other site; Z01.30 Encounter for examination of blood pressure without abnormal findings
CPT/HCPCS: 36415; 85027; 85652; 84443

== ENCOUNTER 2020-04-03 08:39 | Outpatient (CLI) | payer MEDICARE, OTHER, SELFPAY ==
--- NOTE | 2020-04-03 08:00 | DI.RAD_ITS ---
EXAM: XR KNEE RT 2V AP,LAT CLINICAL HISTORY: annual f/u. TECHNIQUE: 2D digital imaging was performed. COMPARISON: CR XR KNEE LT 3V AP,LAT,TITI from 02/01/2019 CR XR KNEE RT 1V from 04/22/2019 FINDINGS: BONES: There are stable post operative changes present. No fracture or dislocation. JOINTS: The joint spaces are well maintained. There is a small joint effusion. SOFT TISSUE: Normal. IMPRESSION: Stable postoperative changes. DATA REPOSITORY: RADIATION DOSE DELIVERED:
--- NOTE | 2020-04-03 08:15 | DI.RAD_ITS ---
EXAM: XR SHOULDER RT COMPLETE 2+V CLINICAL HISTORY: R reverse total shoulder. TECHNIQUE: 2D digital imaging was performed. COMPARISON: CR XR SHOULDER RT COMPLETE 2+V from 01/29/2019 FINDINGS: BONES: There are stable post operative changes present. No fracture or dislocation. JOINTS: The joint spaces are well maintained. No joint effusion is present. SOFT TISSUE: Normal. IMPRESSION: Stable postoperative changes. DATA REPOSITORY: RADIATION DOSE DELIVERED:
== END 2020-04-03 08:59 ==
PROVIDERS: PCP Family Medicine; Referring Provider Family Medicine; Visit Provider Student in an Organized Health Care Education/Training Program
DX: Z96.651 Presence of right artificial knee joint (principal); Z96.611 Presence of right artificial shoulder joint; M25.461 Effusion, right knee; Z47.1 Aftercare following joint replacement surgery
CPT/HCPCS: 99213; 73030; 73560

== ENCOUNTER 2020-06-15 10:42 | Outpatient (REF) | payer MEDICARE, OTHER, SELFPAY ==
--- NOTE | 2020-06-15 10:12 | SKI_PTH ---
PATIENT: Julissa Etienne LOC: [facility] U#:[id number] AGE/SX: 74/F ROOM: RE06/15/[address]: Tank Lazcano DO : 1945 BED: DIS: 06/15/2020 SPEC #: [id number] RECD: 06/15/20 17:41 STATUS: KARMEN REQ #: [id number] ELIAS: 06/15/20 10:[address]: Tank Lazcano DEPT: Surgical Specimen RECD BY: Zuly Multani ENTERED: 06/15/20 17:42 SP TYPE: SKI MARQUITA DR: Mellissa Garnett MD, DC Tissues: 1 - SKIN BIOPSY(SHAVE/PUNCH) Procedures: SKIN LEVEL 4 Comments: [id number]
== END 2020-06-15 10:43 | disposition home or self-care (01) ==
LOC: LBN 10:42
PROVIDERS: PCP Family Medicine; Visit Provider Otolaryngology Otolaryngology/Facial Plastic Surgery
DX: L57.0 Actinic keratosis (principal)
CPT/HCPCS: 88305

== ENCOUNTER 2020-06-16 01:45 | Outpatient (CLI) | payer MEDICARE, OTHER, SELFPAY ==
--- NOTE | 2020-06-16 07:00 | DI.US_ITS ---
EXAM: US ABDOMEN INDICATION: epigastric ABD PAIN,R10.13,GE REFLUX DISEASE,K21.0 COMPARISON: US US OR ANESTHESIA from 04/02/2019 TECHNIQUE: Ultrasound abdomen performed using standard protocol FINDINGS: Abdominal ultrasound was performed according to the usual protocol. The liver is normal in size and shape. No focal hepatic lesion seen. The gallbladder has been surgically removed. There is no evidence of biliary dilatation. Pancreas appears intact as visualized. Spleen is unremarkable in appearance with no focal lesion. Kidneys are normal in size and shape. No renal mass, hydronephrosis, or nephrolithiasis. Abdominal aorta and IVC are of normal diameter. IMPRESSION: Negative abdominal ultrasound .
--- NOTE | 2020-06-16 07:00 | DI.RAD_ITS ---
EXAM: XR CHEST 2V PA LATERAL CLINICAL HISTORY: left chest wall pain,R07.89 TECHNIQUE: COMPARISON: CR RIGHT SHOULDER COMPLETE from 07/14/2017 FINDINGS: The heart is not enlarged. Note is made reverse shoulder prosthesis on right. Lungs are clear. No pleural effusion seen. IMPRESSION: No evidence of acute process. RADIATION DOSE DELIVERED: Total DLP
== END 2020-06-16 02:05 ==
PROVIDERS: PCP Family Medicine; Visit Provider Family Medicine
DX: R10.13 Epigastric pain (principal); K21.00 Gastro-esophageal reflux disease with esophagitis, without bleeding; R07.89 Other chest pain
CPT/HCPCS: 71046; 76700

== ENCOUNTER 2020-07-02 01:39 | Outpatient (CLI) | payer MEDICARE, OTHER, SELFPAY ==
--- NOTE | 2020-07-02 06:45 | DI.DEXA_ITS ---
EXAM: XR DEXA BONE DENSITY W/WO KALA CLINICAL HISTORY: osteoporosis,osteopenia,m81.0,m85.80 TECHNIQUE: Routine DEXA evaluation of the lumbar spine, hip, or forearm. COMPARISON: CR XR LUMBAR SPINE COMPLETE from 03/03/2020 FINDINGS: Performed on a Hologic unit. Lateral image: No compression fracture evident. Lumbar Spine total T-score: 0.9 Hip total T-score:-1.9. Independent reading at the level of right femoral neck yields a T-score of -2 .4 Please note the right hip was scanned because of the presence of a left hip prosthesis. Forearm total T-score: -1.1 IMPRESSION: Bone mineral density measures in the osteopenia range. Fracture risk is moderate. Note: Any spine fracture indicates 5x risk for subsequent spine fracture and 2x risk for subsequent h ip fracture. World Health Organization criteria for BMD interpretation classify patients: Normal...... T- Score at or above -1.0 Osteopenic... T- Score between -1.0 and -2.5 Osteoporosis... T-Score at or below -2.5
--- NOTE | 2020-07-02 09:42 | DI.MAMMO_ITS ---
EXAM: MG MAMMO SCREENING CLINICAL HISTORY: breast cancer screening,. TECHNIQUE: Bilateral full field digital CC and MLO mammographic images were obtained with 3D tomosyn thesis and utilizing computer aided detection (CAD). COMPARISON: Prior mammograms dating back to 2010, the most recent being June 2018. FINDINGS: There are no new spiculated masses nor malignant appearing microcalcification groups. There is no si gnificant architectural distortion nor skin thickening-retraction. IMPRESSION: No radiographic evidence of malignancy. BI-RADS Category 1 - Negative Breast Density - Category B - Scattered areas of fibroglandular density Breast density Category C or D implies that the patient has dense breast tissue. Dense breast tissue can make it harder to find cancer on a mammogram. Dense breast tissue is also associated with an incr eased risk of breast cancer. This information about the result of the mammogram report was provided to the patient to raise their awareness. Use this report when you speak with the patient about their risks for breast cancer, which includes their family history. At that time, you may recommend additional screening tests (Ultrasoun d or MRI) as these tests may add significant information. A negative radiographic report should not delay biopsy if a dominant or clinically suspicious mass is present. Up to ten percent of cancers are not identified on mammography. A negative report may reinforce clinical impression. Adenosis and dense breasts may obscure an underlying neoplasm. False positive reports average 6 to 10%. Patient will receive a letter notifying them of these results.
== END 2020-07-02 01:59 ==
PROVIDERS: PCP Family Medicine; Visit Provider Family Medicine
DX: Z12.31 Encounter for screening mammogram for malignant neoplasm of breast (principal); M85.89 Other specified disorders of bone density and structure, multiple sites
CPT/HCPCS: 77063; 77067; 77080

== ENCOUNTER 2020-09-07 17:35 | Outpatient (REF) | payer MEDICARE, OTHER, SELFPAY ==
[2020-09-07 21:19] LABS: Bilirubin Negative (Negative); Blood Trace-lysed (Negative); Clarity Clear (Clear); Glucose Negative (Negative); Ketones Negative (Negative); Leukocyte Esterase Small (Negative); Nitrite Negative (Negative); Urobilinogen 0.2 EU/dL (Up TO 0.2); pH 5.5 (5-8)
[2020-09-07 21:29] LABS: Bacteria Rare HPF (Negative); C & S Indicated? Yes; Crystals Negative HPF (Negative); Epithelial Cells Few HPF (Negative); Mucus Moderate (Negative); RBC 0-2 HPF (0-2)
== END 2020-09-07 17:36 | disposition home or self-care (01) ==
LOC: LBN 17:35
PROVIDERS: PCP Family Medicine; Visit Provider Physician Assistant
DX: R39.15 Urgency of urination (principal); R42 Dizziness and giddiness
CPT/HCPCS: 81003; 81015; 87086

== ENCOUNTER 2020-09-08 14:48 | Outpatient (REF) | payer MEDICARE, OTHER, SELFPAY ==
[2020-09-08 13:42] LABS: Abs Immature Grans 0.02 10^3/uL (0.0-0.06); Absolute Basophil Count 0.02 10^3/uL (0.0-0.2); Absolute Eosinophil Count 0.08 10^3/uL (0.0-0.7); Absolute Lymphocyte Count 1.34 10^3/uL (1.2-3.4); Absolute Monocyte Count 0.46 10^3/uL (0.1-0.8); Absolute Neutrophil Count 3.98 10^3/uL (1.2-6.7); Basophils % 0.3; Eosinophils % 1.4; HCT 42.5 % (36.0-46.0); HGB 14.3 g/dL (11.2-15.7); Immature Grans % 0.3; Lymphocytes % 22.7; MCH 30.8 pg (27.0-33.0); MCHC 33.6 % (32.0-36.0); MCV 91.4 fL (80-95); MPV 10.2 fL (8.0-11.0); Monocytes % 7.8; Neutrophils % 67.5; Nucleated RBC 0 %; Platelet Count 219 10^3/uL (130-400); RBC 4.65 10^6/uL (3.93-5.22); RDW 12.4 % (11.7-14.6); RDW-SD 41.9 fL
[2020-09-08 13:44] LABS: ESR 6 mm/hr (0-30)
[2020-09-08 14:06] LABS: ALT 20 U/L (14-59); AST 23 U/L (15-37); Albumin 3.8 g/dL (3.4-5.0); Alkaline Phosphatase 91 U/L (46-116); Anion Gap 9.3 mmol/L (3-11); BUN 14 mg/dL (7-18); Bilirubin, Total 0.5 mg/dL (0.2-1.0); C-Reactive Protein < 0.05 mg/dL (0.0-0.3); CO2 28.7 mmol/L (21.0-32.0); CREATININE 0.7 mg/dL (0.55-1.02); Chloride 107 mmol/L (98-107); Glucose 92 mg/dL (74-106); Sodium 145 mmol/L (136-145); TSH (W/Ref FT4) 2.77 uIU/mL (0.36-3.74)
== END 2020-09-08 14:49 | disposition home or self-care (01) ==
LOC: LBN 14:48
PROVIDERS: PCP Family Medicine; Visit Provider Family Medicine
DX: R42 Dizziness and giddiness (principal); M47.816 Spondylosis without myelopathy or radiculopathy, lumbar region; M85.80 Other specified disorders of bone density and structure, unspecified site; R50.9 Fever, unspecified; F41.9 Anxiety disorder, unspecified; F43.9 Reaction to severe stress, unspecified; I10 Essential (primary) hypertension; M79.18 Myalgia, other site
CPT/HCPCS: 80053; 85652; 84443; 85025; 86140

== ENCOUNTER 2021-01-18 01:51 | Outpatient (CLI) | payer MEDICARE, OTHER, SELFPAY ==
--- NOTE | 2021-01-18 07:30 | DI.RAD_ITS ---
Exam(s) XR KNEE RT 3V AP,LAT,TITI EXAM: XR KNEE RT 3V AP,LAT,TITI CLINICAL HISTORY: fell on right knee,injury, s89.91xa. TECHNIQUE: 2D digital imaging was performed. COMPARISON: CR XR KNEE RT 2V AP,LAT from 04/03/2020 FINDINGS: BONES: No acute fracture is present. No bony destructive lesion is seen. No change in total knee pro sthesis. JOINTS: The knee is normally aligned. No joint effusion is seen. SOFT TISSUE: Normal. IMPRESSION: Status post TKR. No acute abnormality. DATA REPOSITORY: RADIATION DOSE DELIVERED:
== END 2021-01-18 02:11 ==
PROVIDERS: PCP Family Medicine; Visit Provider Family Medicine
DX: S89.91XA Unspecified injury of right lower leg, initial encounter (principal); W19.XXXA Unspecified fall, initial encounter; X58.XXXA Exposure to other specified factors, initial encounter; Z96.651 Presence of right artificial knee joint
CPT/HCPCS: 73562

== ENCOUNTER → 2021-03-05 08:41 | Outpatient (BNVA) | payer MEDICARE, OTHER, SELFPAY | PROVIDERS: PCP Family Medicine; Referring Provider Family Medicine; Visit Provider Student in an Organized Health Care Education/Training Program | DX: M70.61 Trochanteric bursitis, right hip (principal); Z96.651 Presence of right artificial knee joint; M70.51 Other bursitis of knee, right knee; W19.XXXA Unspecified fall, initial encounter | CPT/HCPCS: 20610; J1040 ==

== ENCOUNTER 2021-05-04 00:55 | Outpatient (CLI) | payer MEDICARE, OTHER, SELFPAY ==
--- NOTE | 2021-05-04 07:00 | DI.CT_ITS ---
Exam(s) CT ABDOMEN PELVIS W EXAM: CT ABDOMEN PELVIS W CLINICAL HISTORY: RLQ pain, neg US, s/p appy,r10.31. TECHNIQUE: Imaging Protocol: Axial computed tomography images with coronal and sagittal reformatted images were created and reviewed CONTRAST MATERIAL: Intravenous: Omnipaque 100cc Oral: None COMPARISON: CT CT brain neck CTA from 05/21/2018 FINDINGS: VISUALIZED LUNG BASES: No nodules nor pleural effusions evident. Mild benign-appearing increased mar kings in the posterior basal segment of the right lower lobe. ABDOMEN: There is no ascites. LIVER: There are no focal hepatic lesions evident . GALLBLADDER/BILIARY: Gallbladder surgically absent. CBD is not dilated. PANCREAS: No evidence of pancreatic mass nor dilatation of the pancreatic duct. SPLEEN: Spleen is not enlarged. No obvious intrasplenic lesions. Splenic and portal veins are paten t. ADRENALS: There are no significant adrenal masses. KIDNEYS:No cysts evident. No solid renal masses. No calculi nor hydronephrosis.. ABDOMINAL AORTA: Abdominal aorta is not enlarged. LYMPH NODES:There is no retroperitoneal nor paraaortic adenopathy. ABDOMINAL WALL: No evidence of significant anterior abdominal wall nor inguinal hernia. GI: There is an area of narrowing of the lumen in the right-side of the colon, possibly significant w ith respect to lesion. Recommend colonoscopy. No obstruction at this level. Small bowel diameter l oops are upper normal. PELVIS: GI: No evidence of appendicitis.Sigmoid diverticulosis. No acute diverticulitis LYMPH NODES: There is no intrapelvic nor inguinal adenopathy. REPRODUCTIVE: Uterus and adnexal regions appear unremarkable. URINARY BLADDER: No calculi nor obvious masses evident OSSEOUS: No significant osseous lesions. Left hip prosthesis noted. Multilevel advanced chronic degenerative disc disease. No compression fr actures. IMPRESSION: 1. Gallbladder surgically absent. The biliary tree is not dilated. 2. Area of narrowing in the colon at approximately a patent flexure. Although this may be due to und er distension with oral contrast, I would recommend colonoscopy follow-up to rule out lesion at this level. 3. Left: Diverticuli. No evidence of acute diverticulitis. 4. RADIATION DOSE DELIVERED: 851.75mGy.cm Total DLP DATA REPOSITORY: All CT scans at this facility are submitted to the National Radiology Data Registry (NRDR) Dose Index Registry (DIR) with the [employer] (ACR). RADIATION OPTIMIZATION: All CT scans at this facility use at least one of these dose optimization te chniques: automated exposure control; mA and/or kV adjustment per patient size (includes targeted exa ms where dose is matched to clinical indication); or iterative reconstruction.
[2021-05-04] MEDS: Omnipaque 350 MG/ML 50 ML BTL PO (10:06)
[2021-05-04] MEDS: Breeza Beverage 473 ML BTL PO ×2 (10:07→10:08)
[2021-05-04 10:08] LABS: CREATININE 0.7 mg/dL (0.55-1.02)
[2021-05-04] MEDS: Omnipaque 350 MG/ML 100 ML BTL IJ (11:30)
== END 2021-05-04 01:15 ==
PROVIDERS: PCP Family Medicine; Visit Provider Family Medicine
DX: R10.31 Right lower quadrant pain; Z90.49 Acquired absence of other specified parts of digestive tract; K57.90 Diverticulosis of intestine, part unspecified, without perforation or abscess without bleeding
CPT/HCPCS: 74177; 82565; J3490; Q9967

== ENCOUNTER → 2021-05-10 11:22 | Outpatient (BNVA) | payer MEDICARE, OTHER, SELFPAY | PROVIDERS: PCP Family Medicine; Referring Provider Family Medicine; Visit Provider Surgery | DX: R93.89 Abnormal findings on diagnostic imaging of other specified body structures (principal); K56.699 Other intestinal obstruction unspecified as to partial versus complete obstruction; R10.31 Right lower quadrant pain; K21.9 Gastro-esophageal reflux disease without esophagitis | CPT/HCPCS: 99214; 99243 ==

== ENCOUNTER 2021-05-19 03:10 | Outpatient (CLI) | payer MEDICARE, OTHER, SELFPAY ==
[2021-05-19 11:42] LABS: Source Nasal/Nares
[2021-05-19 16:13] LABS: COVID-19 PCR Negative (Negative)
== END 2021-05-19 03:11 | disposition home or self-care (01) ==
LOC: LBO 03:11
PROVIDERS: PCP Family Medicine; Visit Provider Surgery
DX: Z20.822 Contact with and (suspected) exposure to COVID-19 (principal)
CPT/HCPCS: 87635

== ENCOUNTER 2021-05-21 12:02 | Inpatient (IN) | payer MEDICARE, OTHER, SELFPAY ==
--- NOTE | 2021-05-20 11:39 | W.COLOREPORT ---
Colonoscopy Report Date of procedure: 05/21/21 Pre-op diagnosis general: constipaiton/abnormal CT/ Post-op diagnosis procedure note: other (diverticula in left and transverse colon/x2 polyps in right colon) Surgeon: Nury Arenas Anesthesia Type: General LMA/ETT Estimated blood loss (mL): 2 Pathology: other Complications: None Disposition: same day Prep: Miralax/Dulcolax Procedure Description: After informed consent was obtained the patient was taken to the procedure room and placed in a left decubitous position. Monitors were applied and a time out was done. The patients name, date of , procedure, allergies to medications and metal in their body was reviewed. The patient was then sedated. Once sedated and comfortable a rectal exam was done. External hemorrhoid. Poor sphincter tone. Internal exam revealed a normal sphincter tone and no palpable masses. The scope was then introduced and retrofelexed. internal hemorrhoidal tags were identified. The scope was then advanced to the cecum w/ difficulty. The colon is very redundant and floppy. The TI and appendiceal orifice were identified. The prep was BBPS-grade 3 in left and transverse colon. BBPS grade 1 in right colon. The scope was then slowly retracted over 60 minutes back into the rectum. She had multiple small diverticula throughout the entire left colon extending over to the transverse colon. She had a 3 cm polyp in the cecum. This was tattooed and elevated. It was removed with a hot snare. The specimen was retrieved. The defect was closed with 4 endoclips. She had another small polyp at 90 cm that was removed with a cold snare. We were unable to retrieve the specimen. No bleeding is noted from either area. The scope was removed and the patient was woken up and taken back to Same day surgery in stable condition. The patient tolerated the procedure well and there were no immediate complications. Because of the size and location of the polyp, I am going to keep her in the hospital clears and IV antibiotics for 24 hours to ensure there is no bleeding or perforation Follow up: The patient should follow up in 1 years unless they develop changes in bowel habits or other new gastrointestinal complaints.
--- NOTE | 2021-05-20 11:41 | PDOC.DSDIS_ITS ---
Discharge Plan Disposition Patient Disposition: HOME Condition: Good Discharge Details Reason For Visit: Stomach and Colon Scopes Attending Provider: Nury Arenas Primary Care Provider: Mellissa Garnett Home Meds and New Rx's Prescriptions: No Action Systane Complete 0.6 % drops 1 drp OP TID PRNRF: 0 meclizine 25 mg tablet 25 mg PO PRN RF: 0 calcium carbonate [Calcium 500] 500 mg calcium (1,250 mg) tablet 500 mg PO DAILY RF: 0 polyethylene glycol 3350 17 gram/dose powder 238 g PO ONCE Qty: 238 RF: 0 bisacodyl [Dulcolax (bisacodyl)] 5 mg tablet,delayed release (DR/EC) 5 mg PO ONCE Qty: 4 RF: 0 nystatin 100,000 unit/gram powder 1 applic Topical BID PRNQty: 60 RF: 12 citalopram 20 mg tablet 20 mg PO DAILY Qty: 90 RF: 12 acetaminophen 500 mg tablet 1,000 mg PO Q8H PRN (Reason: pain) Qty: 90 RF: 3 multivitamin 1 EACH capsule 1 cap PO DAILY RF: 0 cholecalciferol (vitamin D3) [Vitamin D3] 1,000 UNIT capsule 1,000 unit PO DAILY RF: 0 Wxjapsgj-Tgvxvt-TON with vit D 1 EACH tablet 1 tab PO DAILY RF: 0 Discharge Instructions Additional Instructions: DSU Colonoscopy Post- Op Instructions Instructions for Everyone who is given Anesthesia: For your safety, please do the following for the next twenty-four (24) hours: *Do Not operate a motor vehicle (car, truck, motorcycle, etc.) *Do Not drink alcoholic beverages or use any recreational drugs for the first 24 hours or while taking pain medications. The medications in your body may have a reaction that can be dangerous. *Do Not make any important decisions or sign any important papers. Findings: Follow up: 1. No lifting over 20 pounds or strenuous activity for the first 24 hours after your procedure. After 24 hours there are no restrictions on your activity but you may feel fatigued for a few days. 2. After you arrive home you may have a light meal and return to your normal diet as you can tolerate it without feeling sick to your stomach. 3. You may have a bloated, gaseous feeling in your belly (abdomen) after a colonoscopy. Passing gas and belching will help. Walking or lying down on your left side with your knees flexed may relieve the discomfort. Call the office at [phone] (Office) or [phone] (Hospital) right away if you notice any of the following: a.Vomiting of blood or ?coffee ground stools?. b.Rectal bleeding 1Tbsp, blood clots or continuous bleeding. c.Severe belly (abdominal) pain. d.A hard distended belly (abdomen) and an inability to pass gas. 4. Please don?t expect to have a normal BM (bowel movement) for 2-3 days after your procedure. 5. If there are questions regarding the findings of your procedure, please contact your doctor 6. If you are unable to contact your doctor with a problem, contact the hospital at [phone]. 7. Continue all your regular medications unless directed otherwise. I understand the above instructions and have no questions. Signature of Patient or Adult Escort Name of Responsible Adult Escort Signature of Nurse Date/Time Activity:: see above Diet:: see above Discharge Orders Discharge Orders: Discharge Order (Routine); Ordered 05/20/21 Ordered By: Nury Arenas
--- NOTE | 2021-05-20 11:42 | W.PM.ENDDOP ---
Date of service: 05/21/21 Endoscopy Report DATE OF PROCEDURE: 05/21/21 PRE-OP DIAGNOSIS: worsening of reflux/GERD SURGEON: Nury Arenas ANESTHESIA TYPE: General:No Airway PATHOLOGY: none sent COMPLICATIONS: None DISPOSITION: same day PROCEDURE DESCRIPTION: After informed consent was obtained the patient was take to the procedure room and placed in a supine position. Monitors were applied and a time out was done. The patients name, date of , procedure type, allergies to medications and metal in their body was reviewed. A bite block was placed and the patient was sedated. Once sedated and comfortable the gastroscope was advanced through the oropharynx which was grossly normal into the esophagus. The proximal and mid-esophagus were nl. In the distal esophagus there was no esophageal erosions/varices/diverticula/stricture. The scope was advanced into the stomach and through the pylorus into the 3rd portion of the duodenum. The duodenum was noted to be normal. Biopsies were done, all specimens are retrieved and no bleeding is noted. The scope was retracted back into the stomach and biopsies were done to rule out H. pylori. There were no gastritis or ulcers. The scope was retroflexed. The cardia and fundus were noted to be normal. There is a small, 1 cm, sliding-type hiatal hernia noted. The scope was retracted back into the esophagus and biopsies were done of the GE junction to rule out Downey's. The Z line was regular. The GE junction was at 35 cm. The scope was removed and the patient was woken up and taken back to [facility] in stable condition.
[2021-05-21] VITALS (7 sets, daily range): BP systolic 112–151; BP diastolic 45–81; PULSE 62–86; RESP 15–17; TEMP 35.7–36.9; O2SAT 95–96; BMI 28.8
--- NOTE | 2021-05-21 09:30 | W.ANESPRE ---
General Info Date of Service Date Performed: 05/21/21 Height: 5 ft 1.75 in Weight: 70.987 kg Body Mass Index (BMI): 28.8 Surgical Procedure: Operation Date: 05/21/21 09:50 Proposed Procedures Side Surgeon p Colonoscopy/Gastroscopy Nury Arenas, DO Meds Allergies and Home Medications Allergies Allergy/AdvReac Type Severity Reaction Status Date / Time oxycodone HCl [From Percocet] AdvReac hallucinati Verified 05/21/21 09:39 ons Home Medication Medication Instructions Recorded multivitamin 1 cap PO DAILY 07/14/17 cholecalciferol (vitamin D3) 1,000 unit PO DAILY 11/21/17 [Vitamin D3] Grcxbafs-Qzoytr-RRB with vit D 1 tab PO DAILY 12/01/17 nystatin 100,000 unit/gram topical 1 applic TOPICAL BID PRN #60 gm 06/19/18 powder calcium carbonate 500 mg calcium 500 mg PO DAILY tab 08/20/18 (1,250 mg) tablet acetaminophen 1,000 mg PO Q8H PRN #90 tab 04/03/19 propylene glycol 0.6 % eye drops 1 drp OP TID PRN 06/08/20 meclizine 25 mg tablet 25 mg PO PRN tab 09/08/20 citalopram 20 mg tablet 20 mg PO DAILY #90 tab-cap 09/23/20 Current Visit Medications: Current Medications Generic Name Dose Route Start Last Admin Trade Name Freq PRN Reason Stop Dose Admin Ringer's Solution 1,000 mls @ 80 mls/hr 05/21/21 06:00 IV 06/14/21 23:59 [facility] IV Miscellaneous Supplies 1 each 05/21/21 06:00 Iv Access IV 06/14/21 23:59 DIRECTED LILY Ondansetron HCl 4 mg 05/20/21 14:31 Ondansetron 4 Mg/2 Ml Vial IVP Q4H PRN PRN Nausea / Vomiting Sodium Chloride 0 ml 05/21/21 06:00 Normal Saline Flush 10 Ml Syr IV 06/14/21 23:59 PRN PRN Sodium Chloride 0 ml 05/21/21 06:00 Normal Saline 10 Ml Vial IJ 06/14/21 23:59 DIRECTED PRN Sterile Water 0 ml 05/21/21 06:00 Water,Injection,Sterile 10 Ml Vial IJ 06/14/21 23:59 DIRECTED PRN PFSH Active Problems Active Problems: Problem Status Onset Code Chronic GERD K21.9 Large bowel stricture K56.699 RLQ abdominal pain R10.31 Trochanteric bursitis, right hip M70.61 Pes anserinus bursitis of right knee M70.51 Bilateral thumb pain M79.644, M79.645 Right knee injury S89.91XA DNR (do not resuscitate) Z66 Constipation K59.00 Stress at home F43.9 Vertigo R42 Wound cellulitis L03.90 Epigastric abdominal pain R10.13 Chest wall pain, chronic R07.89, G89.29 History of right shoulder replacement Z96.611 Hypertension I10 Headache R51 Shoulder pain M25.519 Bmqzp-0-tclichkrmhf deficiency E88.01 Upper airway resistance syndrome G47.8 Sinusitis J32.9 Short of breath on exertion 07/17/14 R06.02 Gastritis K29.70 Essential hypertension 02/12/13 I10 Chronic cystitis N30.20 Arthritis of left hip 08/02/16 M16.12 Malignant neoplasm of urinary bladder C67.9 Skin cancer, basal cell C44.91 Spinal stenosis M48.00 Vitamin D deficiency 12/28/11 E55.9 Trigeminal neuralgia 09/17/14 G50.0 Positive ASH (antinuclear antibody) 06/07/16 R76.8 Osteopenia M85.80 Peripheral neuropathy 09/21/15 G62.9 Neck pain 05/31/16 M54.2 Lethargy 05/11/15 R53.83 Lumbago M54.5 Gastroesophageal reflux disease with esophagitis 06/27/08 K21.0 Diverticulosis of colon without diverticulitis K57.30 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 Depressive disorder F32.9 Carotid artery stenosis I65.29 Balance disorder 08/31/17 R26.89 Asthma, exercise induced 10/03/13 J45.990 Aphthous ulcer 01/30/14 K12.0 Anxiety F41.9 Lumbar back pain with radiculopathy affecting right lower extremity M54.17 Spondylosis of lumbar region without myelopathy or radiculopathy M47.816 Medical History Medical History Abdominal or pelvic swelling, mass, or lump, left lower quadrant (03/16/01) Abnormal weight loss (01/30/17) Anemia (12/26/11) Chronic maxillary sinusitis Cough (08/14/12) Epicondylitis Giardiasis Granulomatous disorder of the skin and subcutaneous tissue, unspecified Hematoma of eyelid Hematuria Herpes zoster History of skin cancer Hypokalemia (12/26/11) Myalgia Postoperative examination Primary osteoarthritis of left knee Right sided facial pain Vulvar pain (09/16/11) Surgical History Surgical History Appendectomy (04/17/80) Bladder Surgery (~1994) resection Bursectomy Left trochanteric Cholecystectomy (~1980) Colonoscopy - MAC (~2000) Dilation and curettage 1975 1981 EGD - MAC (~2000) History of esophagogastroduodenoscopy 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 Hunter [place] [facility] [place]. August 2018 Rotator Cuff Repair 12/01/17 (R) Nita Tonsillectomy and adenoidectomy as a small child 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 MCLAUGHLIN LEFT total hip not right. Tobacco Smoking/Tobacco Use Status: Never Passive smoking exposure: Yes Second hand exposure: Yes Alcohol Alcohol Intake: never Substance Use Substance use: Never Substance use type: does not use Vital Signs and Lab Results Lab Results Blood Type / Crossmatch: No Data to Display Complete Blood Count: No Data to Display Complete Metabolic Panel: Creatinine 0.7 mg/dL (0.55-1.02) 05/04/21 09:44 05/04/21 Estimated GFR/1.73 m2 >= 60.00 (mL/min/1.73m2) 05/04/21 09:44 05/04/21 Liver Function Panel: No Data to Display Coagulation Panel: No Data to Display Cardiac Panel: No Data to Display Arterial Blood Gas: No Data to Display Venous Blood Gas: No Data to Display Pancreas Panel: No Data to Display Thyroid Panel: No Data to Display Infectious Disease: Coronavirus (COVID-19)(PCR) Negative (Negative) 05/19/21 08:53 05/19/21 Coronavirus 2019 Source Nasal/Nares 05/19/21 08:53 05/19/21 Blood Cultures: No Data to Display Toxicology Panel: No Data to Display Imaging and Studies Imaging and Studies Study information below may be from another EMR and interpreted by another provider. Please see original notes in EMR for more complete details. Stress Test Summary: Date of study: 05/17/2017 *PATIENT PRESENTATION* Height: 157.5cm (62in) Blood Pressure: Weight: 72.3kg (159lb) BSA: 1.8m^2 Referring physician: Rush Gonzalez Ordering physician: Mellissa Garnett Impressions: - Normal study after maximal exercise. - Low risk of cardiac events. Summary: 1. Myocardial perfusion imaging: No myocardial perfusion defects noted. 2. The calculated left ventricular ejection fraction after stress: 70%. LV global systolic function is normal. No left ventricular regional motion abnormality. Echocardiogram Summary: Date of Exam: 08/14/14Sex: F : 4Age: 69 Exam(s) [id number] EC:Echocardiogram-Complete *[facility]* *[facility]* [address] [place] [address] Date of study: 08/14/2014 *STUDY CONCLUSIONS* Impressions: Normal study. Summary: 1. Left ventricle: The cavity size was normal. Wall thickness was normal. Systolic function was normal. The estimated ejection fraction was 60-65%. Wall motion was normal; there were no regional wall motion abnormalities. 2. Aortic valve: Trileaflet; normal thickness leaflets. 3. Mitral valve: Structurally normal valve. 4. Left atrium: The atrium was normal in size. 5. Right ventricle: The cavity size was normal. Wall thickness was normal. Systolic function was normal. 6. Tricuspid valve: Structurally normal valve. 7. Pulmonary arteries: Pulmonary systolic pressure was within the normal range. Carotid Artery Summary:: Date of Exam: 05/13/15ex: F : 1945ge: 69 Exam(s) [id number] US:Carotid SYMPTOMS/DIAGNOSIS: NECK PULSATION, OFF BALANCE, GAIT ABNORMALITY, R26.89, NECK ACHE, M54.2 BILATERAL DUPLEX CAROTID ULTRASOUND: Duplex evaluation of the carotid circulation was performed according to the usual protocol. There is little if any visible atheromatous plaque in the carotid circulation. There is bilateral antegrade vertebral flow. Flow velocities in the common internal and external carotid arteries are within normal limits bilaterally. CONCLUSION: No evidence of a hemodynamically significant carotid stenosis. Ordering provider: MELLISSA GARNETT M.D., [place] Pulmonary Function Summary: DATE OF ADMIT: 09/19/13 : 1945 PRIMARY CARE PROVIDER: Mellissa Garnett M.D. INTERPRETATION OF STUDY: Spirometry shows mild obstructive airways disease with significant bronchodilator response. LUNG VOLUMES: Lung volumes show no evidence of restriction. DIFFUSION CAPACITY: Normal. AIRWAY RESISTANCE: Mildly elevated. IMPRESSION: Mild obstructive airways disease with significant bronchodilator response. Clinical correlation recommended. Anesthesia Assessment and Plan Anesthesia History Personal History: No History of Anesthesia Complications Family History: No Family History of Anesthesia Complications Exercise Tolerance Exercise Tolerance: Metabolic Equivalents>4 Pertinent Negatives Pertinent Negatives: No Symptoms of GERD Cardiac & Pulmonary Exam Cardiac Exam: Normal S1/S2 Heart Sounds Pulmonary Exam: Clear Bilateral Breath Sounds Implantable Cardiac Device Does patient have a Pacemaker or an ICD?: No Airway Exam Known Difficult Airway: No Mallampati Class: 2 Mouth Opening: Normal (> 3cm) Thyromental Distance: Less than 3 cm Neck Range of Motion: Full ROM Neck Circumference: Normal Teeth Condition: Normal Dentition ASA Classification ASA Score: ASA 3 Emergency Case?: No NPO Status NPO Status: NPO Clears >2 hours, Solids >8 hours Anesthesia Plan Resuscitation Status: Full Code Anesthesia Technique: General Anesthesia Airway Planned: Natural Airway Monitors Used: Standard Monitors
[2021-05-21] MEDS: Lactated Ringers 1,000 ML 80 ML IV (09:59)
--- NOTE | 2021-05-21 10:26 | STOM_PTH ---
PATIENT: Julissa Etienne LOC: [place]#:[id number] AGE/SX: 75/F ROOM: RE05/21/[address]: Nury Arenas : 1945 BED: A DIS: 05/22/2021 SPEC #: [id number] RECD: 05/21/21 13:40 STATUS: KARMEN RESimón #: [id number] ELIAS: 05/21/21 10:[address]: Nury Arenas DEPT: Surgical Specimen RECD BY: Zuly Multani ENTERED: 05/21/21 13:42 SP TYPE: STOMACH OTHR DR: Mellissa Garnett MD, DC Tissues: 1 - BIOPSY BOWEL 2 - BIOPSY BOWEL 3 - STOMACH BIOPSY 4 - STOMACH BIOPSY 5 - ESOPHAGUS BIOPSY 6 - ESOPHAGUS BIOPSY 7 - BIOPSY BOWEL Procedures: GROSS AND MICRO LEVEL 4 Comments: [id number]
[2021-05-21] MEDS: Endoscopic Tattoo 5 ML SYR IJ (10:51)
[2021-05-21] MEDS: CIPROFLOXACIN 400 MG/200 ML BAG 200 MG IVPB ×2 (12:05→13:21)
--- NOTE | 2021-05-21 12:06 | W.PM.HP.N ---
Date of service: 05/21/21 Time of Service: 12:07 Assessment and Plan Assessment and plan (1) Hiatal hernia: Status: Chronic (2) Constipation: Status: Acute (3) Diverticula of colon: Status: Acute (4) Adenomatous colon polyp: Status: Acute Assessment and plan: cipro/flagyl clears start protonix cbc in am no signs of bleeding or perforation at this time History of Present Illness Narrative: Patient is a 75-year-old female who has been struggling with chronic constipation for almost a year. She is a patient of Dr. Garnett'iris. She has tried multiple modalities to alleviate the constipation and none these were successful. Dr. Garnett got a CT scan which suggested a stricture in the right colon. Patient underwent today. She had a large 3 cm polyp in the cecum that was tattooed and removed. Endoclips were placed across it. She had another large 1 cm polyp at 90 cm that was removed. She also has diverticula from the sigmoid colon to the transverse colon. Because of the size of the polyp in the cecum and the risk of bleeding repair of perforation patient will be kept in the hospital overnight on IV antibiotics and observation. I discussed the findings with her today at colonoscopy. At this time she has some mild cramping in the pelvic region. She does have a very redundant and looping colon. She has no nausea vomiting. No fevers. She has good bowel sounds. She has no peritonitis. She has been passing gas. She has not been having any bleeding. Review of Systems All systems reviewed & are unremarkable except as noted in HPI and below PFSH All Active Problems (Updated 05/21/21 @ 17:26 by Nury Arenas DO) Adenomatous colon polyp (Acute) cecum 06/08 Diverticula of colon (Acute) Hiatal hernia (Chronic) Chronic GERD (Acute) RLQ abdominal pain (Chronic) Trochanteric bursitis, right hip (Acute) Injection: 03/05/2021 Pes anserinus bursitis of right knee (Acute) Bilateral thumb pain (Acute) Right knee injury (Acute) DNR (do not resuscitate) (Acute) Constipation (Acute) Stress at home (Acute) Vertigo (Acute) Wound cellulitis (Acute) Epigastric abdominal pain (Acute) Chest wall pain, chronic (Acute) History of right shoulder replacement (Acute) Hypertension (Chronic) Headache (Acute) Shoulder pain (Chronic) Vvstv-9-afbzpriqtri deficiency (Acute) Upper airway resistance syndrome (Acute) Sinusitis (Acute) Short of breath on exertion (Acute 07/17/14) Gastritis (Acute) Essential hypertension (Acute 02/12/13) Chronic cystitis (Acute) Arthritis of left hip (Acute 08/02/16) Malignant neoplasm of urinary bladder (Acute) Skin cancer, basal cell (Acute) Spinal stenosis (Acute) Vitamin D deficiency (Chronic 12/28/11) Trigeminal neuralgia (Chronic 09/17/14) Positive ASH (antinuclear antibody) (Chronic 06/07/16) Osteopenia (Chronic) dexa 2003 showing T-scores -1.6, -0.7, 1.1 Peripheral neuropathy (Chronic 09/21/15) Neck pain (Chronic 05/31/16) Lethargy (Chronic 05/11/15) Lumbago (Chronic) MRI in 1995 showed DJD and DDD. No stenosis or herniation.; 02/22/10-steroid inj. into the greater trochanteric bursa-Dr. 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 visual changes, repeated 2005 was normal; visual speech changes-MRI/MRA 2004 showed small vessel disease in the adali ? of ischemic disea Depressive disorder (Chronic) Carotid artery stenosis (Chronic) MRI in 2004 shows carotid on the left 50-60% occlusion. vision and speech changes. Balance disorder (Chronic 08/31/17) Asthma, exercise induced (Chronic 10/03/13) Aphthous ulcer (Chronic 01/30/14) Anxiety (Chronic) Lumbar back pain with radiculopathy affecting right lower extremity (Chronic) Spondylosis of lumbar region without myelopathy or radiculopathy (Chronic) Medical History Abdominal or pelvic swelling, mass, or lump, left lower quadrant (03/16/01) Abnormal weight loss (01/30/17) Anemia (12/26/11) Chronic maxillary sinusitis Cough (04/30/13) Epicondylitis Giardiasis Granulomatous disorder of the skin and subcutaneous tissue, unspecified Hematoma of eyelid Hematuria Herpes zoster History of skin cancer Hypokalemia (12/26/11) Myalgia Postoperative examination Primary osteoarthritis of left knee Right sided facial pain Vulvar pain (09/16/11) Surgical History Appendectomy (04/17/80) Bladder Surgery (~1994) resection Bursectomy Left trochanteric Cholecystectomy (~1980) Colonoscopy - MAC (~05/21/21) 2000 Dilation and curettage 1975 1981 EGD - MAC (~2000) History of esophagogastroduodenoscopy (~05/21/21) 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 Hunter Hx of shoulder replacement [facility] [place] Dr. Segundo. August 2018 Rotator Cuff Repair 12/01/17 (R) Nita Tonsillectomy and adenoidectomy as a small child 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 MCLAUGHLIN LEFT total hip not right. Family History Mother , 89 Essential hypertension Heart disease Hyperlipidemia Stroke Father Sutco-4-flnwoneklsd deficiency liver Diabetes Asthma Sister , 54 Jvjou-3-hsglpfmpmbz deficiency lungs Lung transplanted B/L Sister Essential hypertension Hyperlipidemia Asthma A CHILD Maternal Grandfather , 89 Diabetes Essential hypertension Depression Paternal Grandfather Heart disease Asthma Maternal Grandmother , 71 Essential hypertension Hyperlipidemia Stroke Paternal Grandmother , 83 Essential hypertension Heart disease Hyperlipidemia Stroke Daughter No problems noted. Social History Smoking/Tobacco Use Status: Never Second Hand Exposure: Yes Smoking risk assessment performed?: Yes Alcohol Intake: never Drug use: Never Substance use type: does not use Caregiver/Support person: No Household members: spouse Housing: house Communication Needs: None Do you need help understanding health information?: Rarely Pets and animals: No Sexually active: No Do you think of yourself as: straight/heterosexual Current gender identity: male What is your relationship status?: How often do you talk on the phone with friends or family?: three or more times per week How often do you get together with friends or relatives?: three or more times per week How often do you attend evangelical or gnosticism services?: 1-3 times per year Do you belong to any clubs or organized social groups?: no Panel score (0-1 are the most socially isolated patients): 2 What type of physical activity do you participate in: other Details: PT 2x/week Duration: 45-60 minutes/day Frequency: daily Elena/Confucianism: Latter Day Special elena needs: No Seatbelt use: always Helmet use: Yes Helmet use: always Drive intox or ride w/intox 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 Do you feel safe at home: Yes Do you feel safe in your relationship?: Yes Meds Allergies and Home Medications Allergies Allergy/AdvReac Type Severity Reaction Status Date / Time oxycodone HCl [From Percocet] AdvReac hallucinati Verified 05/21/21 09:39 ons Home Medications Medication Instructions Recorded Confirmed Type multivitamin 1 cap PO DAILY 07/14/17 05/21/21 History cholecalciferol (vitamin D3) 1,000 unit PO DAILY 11/21/17 05/21/21 History [Vitamin D3] Abvidddk-Evggcr-EXD with vit D 1 tab PO DAILY 12/01/17 05/21/21 History nystatin 100,000 unit/gram topical 1 applic TOPICAL BID PRN #60 gm 06/19/18 05/18/21 History powder calcium carbonate 500 mg calcium 500 mg PO DAILY tab 08/20/18 05/21/21 History (1,250 mg) tablet acetaminophen 1,000 mg PO Q8H PRN #90 tab 04/03/19 05/18/21 Rx propylene glycol 0.6 % eye drops 1 drp OP TID PRN 06/08/20 05/21/21 History meclizine 25 mg tablet 25 mg PO PRN tab 09/08/20 05/18/21 History citalopram 20 mg tablet 20 mg PO DAILY #90 tab-cap 09/23/20 05/21/21 Rx Exam Resp Effort & Inspection: normal respiratory effort and able to speak in complete sentences Auscultation: clear to auscultation bilaterally Cardio Rate: regular rate Rhythm: regular rhythm GI Palpation: soft and nontender Auscultation: normal bowel sounds Extrem General: no clubbing, cyanosis or edema Results Last Vital Signs Temp 36.7 C 02/04/22 09:43 Pulse 86 05/21/21 09:43 Resp 16 05/21/21 09:43 BP 128/79 05/21/21 09:43 Pulse Ox 95 05/21/21 09:43
--- NOTE | 2021-05-21 12:17 | W.ANESPOSTOP ---
Postoperative Evaluation Date, Time and Location Date Performed: 05/21/21 Time Performed: 12:17 Patient Location: PACU Vital Signs Most Recent Imported Vital Signs: Most Recent Vital Signs Temp Pulse Resp BP Pulse Ox 36.7 C 86 16 128/79 95 05/21/21 09:43 05/21/21 09:43 05/21/21 09:43 05/21/21 09:43 05/21/21 09:43 Pain Score Most Recent Pain Score: Most Recent Pain Score Pain Level 0 05/21/21 09:43 Assessment Mental Status: Arousable with meaningful communication Airway and Respiratory Function: Patent airway with normal (patient baseline) respiratory exam Cardiovascular Function: Hemodynamically Stable Hydration Status: Adequately Hydrated Nausea & Vomiting: No Nausea or Vomiting Pain: Pt. Denies Any Pain Peripheral Nerve Block: Patient did not receive a nerve block
[2021-05-21] MEDS: Hyoscyamine 0.125 MG SL/ORAL/CHEW SL (12:46)
[2021-05-21] MEDS: Lactated Ringers 1,000 ML 100 ML IV (13:19)
[2021-05-21] MEDS: Ondansetron 4 MG/2 ML VIAL IVP (15:02)
[2021-05-21] MEDS: Normal Saline Flush 10 ML SYR IV (15:02)
[2021-05-21] MEDS: MORPHine 2 MG/ML SYR IVP ×2 (15:03→18:55)
--- NOTE | 2021-05-21 17:28 | W.PM.DS.N ---
Date of service: 05/22/21 DS: Diagnosis Discharge Diagnosis (1) Hiatal hernia: Status: Chronic (2) Constipation: Status: Acute (3) Diverticula of colon: Status: Acute (4) Adenomatous colon polyp: Status: Acute Discharge Plan Disposition Patient Disposition: HOME Condition: Good Discharge Details Reason For Visit: s/p polypectomy Admit Date/Time: 05/21/21 12:02 Admit Provider: Nury Arenas Attending Provider: Nury Arenas Primary Care Provider: Mellissa Garnett [place] [facility] Hospital Course: Patient was admitted to the hospital after undergoing colonoscopy with large polypectomy in the cecum. She was kept for observation overnight to ensure her post procedure discomfort improved after having such a large polyp removed and to ensure bowel wall integrity was not immediately compromised. She had an uneventful stay with us, vital signs have remained within normal limits. She tolerated liquids without any issues and has been passing flatus. She felt better with much less discomfort after one overnight and was deemed stable for discharge. She will be on PO antibiotics for precaution. Home Meds and New Rx's Prescriptions: New pantoprazole [Protonix] 40 mg tablet,delayed release (DR/EC) 40 mg PO DAILY Qty: 30 RF: 12 Bio-K plus 50 billion cell capsule,delayed release(DR/EC) 1 cap PO DAILY Qty: 30 RF: 0 hyoscyamine sulfate [Levsin/SL] 0.125 mg tablet, sublingual 0.125 mg PO QID PRN PRNQty: 20 RF: 0 Continued Systane Complete 0.6 % drops 1 drp OP TID PRNRF: 0 meclizine 25 mg tablet 25 mg PO PRN RF: 0 citalopram 20 mg tablet 20 mg PO DAILY Qty: 90 RF: 12 acetaminophen 500 mg tablet 1,000 mg PO Q8H PRN (Reason: pain) Qty: 90 RF: 3 multivitamin 1 EACH capsule 1 cap PO DAILY RF: 0 cholecalciferol (vitamin D3) [Vitamin D3] 1,000 UNIT capsule 1,000 unit PO DAILY RF: 0 Ykqjhntr-Bxzxrj-AID with vit D 1 EACH tablet 1 tab PO DAILY RF: 0 Discontinued calcium carbonate [Calcium 500] 500 mg calcium (1,250 mg) tablet 500 mg PO DAILY RF: 0 No Action nystatin 100,000 unit/gram powder 1 applic Topical BID PRNQty: 60 RF: 12 Discharge Instructions Additional Instructions: DSU Colonoscopy Post-Op Instructions Instructions for Everyone who is given Anesthesia: For your safety, please do the following for the next twenty-four (24) hours: *Do Not operate a motor vehicle (car, truck, motorcycle, etc.) *Do Not drink alcoholic beverages or use any recreational drugs for the first 24 hours or while taking pain medications. The medications in your body may have a reaction that can be dangerous. *Do Not make any important decisions or sign any important papers. Findings:x2 large polyps in right colon diverticula hiatal hernia on stomach scope -start protonix Continue with lifestyle modifications: no alcohol, tobacco products, Aspirin or NSAID's (ibuprofen, Motrin, Naprosyn, aleve, etc), soda pop/any carbonated beverages, caffeine (including tea & chocolate), and acidic foods, (tomatoes, citrus, onions, peppermints) spicy or fried/fatty foods. Do not lie down for 30 minutes after eating, and do not eat 2 hours prior to bedtime. Avoid wearing tight fitting clothing/ belts -on Wednesday 05/24- start Miralax 17grams BID until follow up appt. Follow up: Next 05/27. My office will call on Monday to arrange an appointment 1. No lifting over 20 pounds or strenuous activity for the first 72 hours after your procedure. After 72 hours, slowly work back into your regular activities. But, you may feel fatigued for a few days. 2. I would like you to stay on a soft/low fiber diet for the next 5 days. -I am going to keep you on antibiotics for the next 4 days after discharge. You are also given a pro-biotic to help prevent diarrhea. 3. You may have a bloated, gaseous feeling in your belly (abdomen) after a colonoscopy. Passing gas and belching will help. Walking or lying down on your left side with your knees flexed may relieve the discomfort. -no aspirin or NSAID's (ibuprofen/aleve,etc) for 2 weeks. Tylenol is OK. Soft diet for the next 4 days after discharge. -levsin for mild abdominal cramping (minor cramps are normal. Severe pain is not! If this occurs- go to the ER.). Call the office at [phone] (Office) or [phone] (Hospital) right away if you notice any of the following: a.Vomiting of blood or ?coffee ground stools?. b.Rectal bleeding 1Tbsp, blood clots or continuous bleeding. c.Severe belly (abdominal) pain. d.A hard distended belly (abdomen) and an inability to pass gas. 4. Please don?t expect to have a normal BM (bowel movement) for 2-3 days after your procedure. 5. If there are questions regarding the findings of your procedure, please contact your doctor 6. If you are unable to contact your doctor with a problem, contact the hospital at [phone]. 7. Continue all your regular medications unless directed otherwise. I understand the above instructions and have no questions. Signature of Patient or Adult Escort Name of Responsible Adult Escort Signature of Nurse Date/Time Gastrointestinal Soft Diet Overview Overview What is a gastrointestinal soft diet? This diet is soft in texture, low in fiber, and easy to digest. The goal is to decrease) in the bowel that may cause and discomfort. This diet is often used after abdominal surgery. Meats & Meat Substitutes ? Foods Allowed: Chicken, turkey, fish, tender cuts of beef and pork, ground meats, eggs, creamy nut butters, tofu, skinless hot dogs, sausage patties without whole spices ? Foods to Avoid : Tough, fibrous meats with gristle, meat with casings (hot dogs, sausage, kielbasa), lunch meats with whole spices, shellfish, beans, chunky peanut butter, nuts Fruits and Juices ? Foods Allowed: Fruit juices without pulp, banana, avocado, applesauce, canned peaches and pears, cooked fruit without the skin/seeds. Ground or over- cooked fruits. Fruits ground finely in a ?smoothie?. ? Foods to Avoid: Juices with pulp, fresh fruit (except banana and avocado), dried fruits, canned fruit cocktail and pineapple, coconut, frozen/thawed berries Vegetables ? Foods Allowed: Well-cooked or canned vegetables, potatoes without skin, tomato sauces, vegetable juice ? Foods to Avoid: Raw vegetables, all corn, all mushrooms, stewed tomatoes, potato skins, stir-doll vegetables, sauerkraut, pickles, olives, all dried beans, peas, and legumes Cereals and Grains ? Foods Allowed: Low- fiber dry or cooked cereals (less than 2 grams fiber per serving), white rice, pasta, macaroni, or noodles ? Foods to Avoid: Cereals with nuts, berries, dried fruits, whole grain cereals, bran cereals, granola, brown or wild rice, whole grain pasta Breads and Crackers ? Foods Allowed: White/refined breads and rolls, plain bagel, toast, plain crackers, vincenzo crackers ? Foods to Avoid: Whole grain breads- including white whole grain; bread/ rolls with raisins, nuts or seeds, multi-grain crackers Dairy ? Foods Allowed: Milk, cheese, yogurt, milkshakes, pudding, ice cream, cottage cheese, sherbet ; lactose free or low lactose versions if lactose intolerant ? Foods to Avoid: Dairy product mixed with fresh fruit (except banana), berries, nuts or seeds Desserts ? Foods Allowed: Plain cake, pudding, custard, ice cream, sherbet, gelatin, fruit whips ? Foods to Avoid: Any dessert that contains nuts, dried fruits, coconut, or fruits with seeds Herbs and Spices ? Foods Allowed: All ground spices or herbs, salt ? Foods to Avoid: Whole spices such as peppercorns, whole cloves, anise seeds, celery seeds, jazlyn, monique seeds, and fresh herbs Snacks/Other Foods ? Foods Allowed: Sugar, honey, jelly, mayonnaise, mustard, soy sauce, oil, butter, margarine, marshmallows, cookies without dried fruits or nuts, snack chips and pretzels using refined flours ? Foods to Avoid: Carbonated beverages, jams or jellies with seeds, popcorn After several weeks, slowly start to reintroduce the ?Foods to Avoid? back into your diet unless your doctor has told you otherwise. Try a small portion of one of these foods each day. If it does not bother you within 24 hours, it can be added to your diet. Continue to add new foods in this way. Some people may continue to have food sensitivities and may need to continue to avoid certain foods. If you cannot tolerate a food, avoid that food for a few weeks before you try it again. Guidelines when eating 1. Avoid any food that you cannot tolerate or that causes gas, bloating, or stomach pain. 2. Make time for your meals. Do not eat while you are in a hurry. Cut your food into small pieces. Chew each bite to a mashed potato consistency. Do not eat when you cannot concentrate on chewing well. 3. Drink at least 6-8 cups of fluid per day Fluids include: water, coffee, tea, juice, milk, popsicles, soups, gelatin, pudding, ice cream, sherbet, and yogurt. In addition, choose caffeine-free beverages more often, especially if you are having diarrhea. 4. A daily multivitamin may be recommended if diet is limited in amounts or variety of foods. Do not take any herbal supplements without first checking with your doctor. Stand Alone Forms: Nursing Discharge Form Referrals: Nury Arenas DO [OSTEOPATHIC DOCTOR] - 05/27/21 (Office will call Monday with time of appointment.) Activity:: see above Equipment/Supplies:: No Equipment Needed Diet:: see above Discharge Orders Discharge Orders: Discharge Order (Routine); Ordered 05/22/21 Ordered By: Gracie Berger Discharge Data Discharge Date/Time-TO BE ENTERED AT DEPARTURE: 05/22/21 16:59 DS: Summary Time Spent with Patient providing and/or coordinating discharge services: Less than 30 minutes Status at Discharge Functional status at discharge: independent ambulation Overall status at discharge: patient is back to baseline Mental Status: mental status grossly normal Speech and Movement: speech and movement normal Mood: congruent mood Affect: normal affect Exam Psych Mental Status: mental status grossly normal Speech and Movement: speech and movement normal Mood: congruent mood Affect: normal affect DS: Data Vitals/I&O Vitals and I&O: Vital Signs Temperature 36.4 C L 05/21/21 15:15 Temperature Source Tympanic 05/21/21 14:59 Pulse 82 05/21/21 15:15 Pulse Rhythm Regular 05/21/21 16:56 Respiratory Rate 16 05/21/21 15:15 Respiratory Effort Non-Labored 05/21/21 16:56 Respiratory Depth Normal 05/21/21 16:56 Respiratory Pattern Normal 05/21/21 16:56 Blood Pressure 125/69 05/21/21 15:15 Pulse Oximetry 96 05/21/21 15:15 Oxygen Delivery Method Room Air 05/21/21 15:15 Oxygen Flow Rate 0 05/21/21 15:15 Pain Level 6 05/21/21 15:03 Intake & Output 05/20/21 05/21/21 05/21/21 23:59 11:59 23:59 Intake Total 500 / 500 Output Total 350 / 350 Balance 150 / 150 Weight 70.987 kg 66 kg Intake: IV 500 / 500 Output: Urine 350 / 350 Other: Urine Color Yellow Urine Appearance Clear Urine Odor None Emesis Description None None Voiding Methods Toilet PFSH All Active Problems (Updated 05/21/21 @ 17:26 by Nury Arenas DO) Adenomatous colon polyp (Acute) cecum 06/08 Diverticula of colon (Acute) Hiatal hernia (Chronic) Chronic GERD (Acute) RLQ abdominal pain (Chronic) Trochanteric bursitis, right hip (Acute) Injection: 03/05/2021 Pes anserinus bursitis of right knee (Acute) Bilateral thumb pain (Acute) Right knee injury (Acute) DNR (do not resuscitate) (Acute) Constipation (Acute) Stress at home (Acute) Vertigo (Acute) Wound cellulitis (Acute) Epigastric abdominal pain (Acute) Chest wall pain, chronic (Acute) History of right shoulder replacement (Acute) Hypertension (Chronic) Headache (Acute) Shoulder pain (Chronic) Uplfw-8-itgtcnkldfc deficiency (Acute) Upper airway resistance syndrome (Acute) Sinusitis (Acute) Short of breath on exertion (Acute 07/17/14) Gastritis (Acute) Essential hypertension (Acute 02/12/13) Chronic cystitis (Acute) Arthritis of left hip (Acute 08/02/16) Malignant neoplasm of urinary bladder (Acute) Skin cancer, basal cell (Acute) Spinal stenosis (Acute) Vitamin D deficiency (Chronic 12/28/11) Trigeminal neuralgia (Chronic 09/17/14) Positive ASH (antinuclear antibody) (Chronic 06/07/16) Osteopenia (Chronic) dexa 2003 showing T-scores -1.6, -0.7, 1.1 Peripheral neuropathy (Chronic 09/21/15) Neck pain (Chronic 05/31/16) Lethargy (Chronic 05/11/15) Lumbago (Chronic) MRI in 1995 showed DJD and DDD. No stenosis or herniation.; 02/22/10-steroid inj. into the greater trochanteric bursa-Dr. 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 visual changes, repeated 2005 was normal; visual speech changes-MRI/MRA 2004 showed small vessel disease in the adali ? of ischemic disea Depressive disorder (Chronic) Carotid artery stenosis (Chronic) MRI in 2004 shows carotid on the left 50-60% occlusion. vision and speech changes. Balance disorder (Chronic 08/31/17) Asthma, exercise induced (Chronic 10/03/13) Aphthous ulcer (Chronic 01/30/14) Anxiety (Chronic) Lumbar back pain with radiculopathy affecting right lower extremity (Chronic) Spondylosis of lumbar region without myelopathy or radiculopathy (Chronic) Medical History Abdominal or pelvic swelling, mass, or lump, left lower quadrant (03/16/01) Abnormal weight loss (01/30/17) Anemia (12/26/11) Chronic maxillary sinusitis Cough (08/14/12) Epicondylitis Giardiasis Granulomatous disorder of the skin and subcutaneous tissue, unspecified Hematoma of eyelid Hematuria Herpes zoster History of skin cancer Hypokalemia (12/26/11) Myalgia Postoperative examination Primary osteoarthritis of left knee Right sided facial pain Vulvar pain (09/16/11) Surgical History Appendectomy (04/17/80) Bladder Surgery (~1994) resection Bursectomy Left trochanteric Cholecystectomy (~1980) Colonoscopy - MAC (~05/21/21) 2000 Dilation and curettage 1975 1981 EGD - MAC (~2000) History of esophagogastroduodenoscopy (~05/21/21) 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 Hunter Hx of shoulder replacement [facility] [place] Dr. Segundo. August 2018 Rotator Cuff Repair 12/01/17 (R) Nita Tonsillectomy and adenoidectomy as a small child 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 MCLAUGHLIN LEFT total hip not right. Family History Mother , 89 Essential hypertension Heart disease Hyperlipidemia Stroke Father Slpup-5-jvzikqsrrqx deficiency liver Diabetes Asthma Sister , 54 Tzyqo-8-tehkupioinx deficiency lungs Lung transplanted B/L Sister Essential hypertension Hyperlipidemia Asthma A CHILD Maternal Grandfather , 89 Diabetes Essential hypertension Depression Paternal Grandfather Heart disease Asthma Maternal Grandmother , 71 Essential hypertension Hyperlipidemia Stroke Paternal Grandmother , 83 Essential hypertension Heart disease Hyperlipidemia Stroke Daughter No problems noted. Social History Smoking/Tobacco Use Status: Never Second Hand Exposure: Yes Smoking risk assessment performed?: Yes Alcohol Intake: never Drug use: Never Substance use type: does not use Caregiver/Support person: No Household members: spouse Housing: house Communication Needs: None Do you need help understanding health information?: Rarely Pets and animals: No Sexually active: No Do you think of yourself as: straight/heterosexual Current gender identity: male What is your relationship status?: How often do you talk on the phone with friends or family?: three or more times per week How often do you get together with friends or relatives?: three or more times per week How often do you attend gnosticist or moravian services?: 1-3 times per year Do you belong to any clubs or organized social groups?: no Panel score (0-1 are the most socially isolated patients): 2 What type of physical activity do you participate in: other Details: PT 2x/week Duration: 45-60 minutes/day Frequency: daily Elena/Confucianist: Quaker Special elena needs: No Seatbelt use: always Helmet use: Yes Helmet use: always Drive intox or ride w/intox courtesy bus driver: No Do you feel safe at home: Yes Do you feel safe in your relationship?: Yes
[2021-05-22] MEDS: MORPHine 2 MG/ML SYR IVP (00:19)
[2021-05-22] MEDS: metroNIDAZOLE 500 MG/100 ML BAG 100 MG IVPB ×2 (00:22→07:44)
[2021-05-22] MEDS: Lactated Ringers 1,000 ML 100 ML IV (00:22)
[2021-05-22] MEDS: Normal Saline Flush 10 ML SYR IV (00:23)
[2021-05-22] MEDS: CIPROFLOXACIN 400 MG/200 ML BAG 200 MG IVPB ×2 (02:15→14:44)
[2021-05-22 07:09] LABS: Abs Immature Grans 0.02 10^3/uL (0.0-0.06); Absolute Basophil Count 0.03 10^3/uL (0.0-0.2); Absolute Eosinophil Count 0.04 10^3/uL (0.0-0.7); Absolute Lymphocyte Count 2.02 10^3/uL (1.2-3.4); Absolute Monocyte Count 0.78 10^3/uL (0.1-0.8); Absolute Neutrophil Count 5.97 10^3/uL (1.2-6.7); Basophils % 0.3; Eosinophils % 0.5; HCT 39.2 % (36.0-46.0); HGB 12.7 g/dL (11.2-15.7); Immature Grans % 0.2; Lymphocytes % 22.8; MCH 30.2 pg (27.0-33.0); MCHC 32.4 % (32.0-36.0); MCV 93.3 fL (80-95); MPV 9.9 fL (8.0-11.0); Monocytes % 8.8; Neutrophils % 67.4; Nucleated RBC 0 %; Platelet Count 229 10^3/uL (130-400); RDW 12.7 % (11.7-14.6); RDW-SD 43.2 fL; WBC 8.86 10^3/uL (4.4-10.8)
[2021-05-22 07:30] VITALS: BP 103/63; PULSE 71; RESP 16; TEMP 36.7; O2SAT 97
--- NOTE | 2021-05-22 09:40 | INITIAL_ITS ---
- If Service Date Differs Date of service: 05/22/21 Time of Service: 09:41 Care Management Initial Assess REASON FOR HOSPITALIZATION:: Polypectomy. PAST MEDICAL HISTORY/PAST SURGICAL HISTORY:: All Active Problems: Adenomatous colon polyp (Acute) - cecum 06/08,. Diverticula of colon (Acute), Hiatal hernia (Chronic), Chronic GERD (Acute),. RLQ abdominal pain (Chronic), Trochanteric bursitis, right hip (Acute) - Injection: 03/05/2021, Pes anserinus bursitis of right knee (Acute),. Bilateral thumb pain (Acute), Right knee injury (Acute), DNR (do not resuscitate) (Acute), Constipation (Acute), Stress at home (Acute),. Vertigo (Acute), Wound cellulitis (Acute), Epigastric abdominal pain (Acute), Chest wall pain, chronic (Acute), History of right shoulder replacement (Acute), Hypertension (Chronic), Headache (Acute),. Shoulder pain (Chronic), Alpha -1-antitrypsin deficiency (Acute), Upper airway resistance syndrome (Acute), Sinusitis (Acute), Short of breath on exertion (Acute 07/17/14), Gastritis (Acute), Essential hypertension (Acute 02/12/13), Chronic cystitis (Acute), Arthritis of left hip (Acute 08/02/16),. Malignant neoplasm of urinary bladder (Acute), Skin cancer, basal cell (Acute), Spinal stenosis (Acute), Vitamin D deficiency (Chronic 12/28/11),. Trigeminal neuralgia (Chronic 09/17/14), Positive ASH (antinuclear antibody) (Chronic 06/07/16), Osteopenia (Chronic) - dexa 2003 showing T-scores -1.6, -0.7, 1.1, Peripheral neuropathy (Chronic 09/21/15), Neck pain (Chronic 05/31/16), Lethargy (Chronic 05/11/15), Lumbago (Chronic) -. MRI in 1995 showed DJD and DDD. No stenosis or herniation.; 02/22/10-steroid inj. into the greater trochanteric bursa-Dr. Moya,. Gastroesophageal reflux disease with esophagitis (Chronic 06/27/08). 06/10/08- 06/12/08 Single Capsule Loza pH study placed after EGD,. 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 visual changes, repeated 2005 was normal; visual speech changes-MRI/MRA 2004 showed small vessel disease in the adali ? of ischemic disease, Depressive disorder (Chronic), Carotid artery stenosis (Chronic) - MRI in 2004 shows carotid on the left 50-60% occlusion. vision and speech changes., Balance disorder (Chronic 08/31/17), Asthma, exercise induced (Chronic 10/03/13), Aphthous ulcer (Chronic 01/30/14),. Anxiety (Chronic), and Lumbar back pain with radiculopathy affecting right lower extremity (Chronic) - Spondylosis of lumbar region without myelopathy or radiculopathy (Chronic). Medical History: Abdominal or pelvic swelling, mass, or lump, left lower quadrant (03/16/01), Abnormal weight loss (01/30/17), Anemia (12/26/11), Chronic maxillary sinusitis, Cough (08/14/12), Epicondylitis. Giardiasis - Granulomatous disorder of the skin and subcutaneous tissue, unspecified, Hematoma of eyelid, Hematuria, Herpes zoster, History of skin cancer, Hypokalemia (12/26/11), Myalgia, Postoperative examination,. Primary osteoarthritis of left knee, Right sided facial pain, and Vulvar pain (09/16/11). . Surgical History: Appendectomy (04/17/80), Bladder Surgery (~1994) -. resection, Bursectomy, Left trochanteric, Cholecystectomy (~1980),. Colonoscopy - MAC (~05/21/21), 2000, Dilation and curettage - 1975,. 1981, EGD - MAC (~2000), History of esophagogastroduodenoscopy (~05/21/21), History of total right knee replacement (TKR) (04/02/19) -. Dr. Hunter, Hx of shoulder replacement - [facility] [place]. Segundo. August 2018,. Rotator Cuff Repair - 12/01/17 (R) Nita, Tonsillectomy and adenoidectomy as a small child, and Total replacement of hip (11/02/16) -. DR. MCLAUGHLIN LEFT total hip not right. PREVIOUS FUNCTIONAL STATUS/SOCIAL/FAMILY SUPPORTS:: Julissa lives in [place] with her Shaq. She has a daughter, Shaunna, who resides locally and is supportive of her. 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 She enjoys reading, walks a couple of miles a day with her , and shares that she has been an avid skier since learning how to ski at 2 years old. Julissa drives and is independent with her ADLs at baseline. CURRENT FUNCTIONAL STATUS:: Julissa is laying in bed when CM comes to meet with her. She is pleasant and easily engages in conversation. She states she is hoping to be discharged home today but believes she may have to stay until tomorrow as she is still having significant pain. ADVANCE DIRECTIVES:: COLST/DNR and DPOA for Health Care on file; Shaq Etienne is appointed as Health Care Agent. Has patient been provided with info about the portal/API?: Yes Did the patient sign up for the portal?: No (Patient declines) CODE STATUS:: Full Code INSURANCE COVERAGE / FINANCIAL ISSUES:: [employer] and Medicare. CURRENT HOME/COMMUNITY SERVICES/EQUIPMENT:: Julissa has a FWW but says she doesn't use it. She does use a walking stick on her daily walks. She has no home/community services. PRIMARY CARE PHYSICIAN:: Mellissa Garnett MD ([facility]). POTENTIAL DISCHARGE NEEDS:: Follow up appointments with PCP and surgeon. PATIENT/FAMILY EDUCATION NEEDS:: Review discharge instructions including limitations, medications, and follow up plan of care; discuss Ask Me Three and self management. ANTICIPATED BARRIERS TO DISCHARGE:: No anticipated barriers to discharge. TRANSPORTATION:: Via private vehicle with family. PLAN:: Julissa will likely be discharged home with no services when medically cleared by provider. She will follow up with her PCP, surgeon, and plan of care as instructed. She will be transported home by her via private vehicle when ready. CM will continue to follow.
[2021-05-22 15:42] VITALS: BP 111/68; PULSE 68; RESP 16; TEMP 36.8; O2SAT 98
--- NOTE | 2021-05-22 16:27 | DSE_ITS ---
DS: Diagnosis Discharge Diagnosis (1) Hiatal hernia: Status: Chronic (2) Constipation: Status: Acute (3) Diverticula of colon: Status: Acute (4) Adenomatous colon polyp: Status: Acute Discharge Plan Disposition Patient Disposition: HOME Condition: Good Discharge Details Reason For Visit: s/p polypectomy Admit Date/Time: 05/21/21 12:02 Admit Provider: Nury Arenas Attending Provider: Nury Arenas Primary Care Provider: Mellissa Garnett [facility] Hospital Course: Patient was admitted to the hospital after undergoing colonoscopy with large polypectomy in the cecum. She was kept for observation overnight to ensure her post procedure discomfort improved after having such a large polyp removed and to ensure bowel wall integrity was not immediately compromised. She had an uneventful stay with us, vital signs have remained within normal limits. She tolerated liquids without any issues and has been passing flatus. She felt better with much less discomfort after one overnight and was deemed stable for discharge. She will be on PO antibiotics for precaution. Home Meds and New Rx's Prescriptions: New pantoprazole [Protonix] 40 mg tablet,delayed release (DR/EC) 40 mg PO DAILY Qty: 30 RF: 12 ciprofloxacin HCl [Cipro] 500 mg tablet 500 mg PO Q12H 4 Days Qty: 8 RF: 0 metronidazole 500 mg tablet 500 mg PO Q8H 4 Days Qty: 12 RF: 0 Bio-K plus 50 billion cell capsule,delayed release(DR/EC) 1 cap PO DAILY Qty: 30 RF: 0 hyoscyamine sulfate [Levsin/SL] 0.125 mg tablet, sublingual 0.125 mg PO QID PRN PRNQty: 20 RF: 0 Continued Systane Complete 0.6 % drops 1 drp OP TID PRNRF: 0 meclizine 25 mg tablet 25 mg PO PRN RF: 0 citalopram 20 mg tablet 20 mg PO DAILY Qty: 90 RF: 12 acetaminophen 500 mg tablet 1,000 mg PO Q8H PRN (Reason: pain) Qty: 90 RF: 3 multivitamin 1 EACH capsule 1 cap PO DAILY RF: 0 cholecalciferol (vitamin D3) [Vitamin D3] 1,000 UNIT capsule 1,000 unit PO DAILY RF: 0 Bqnxaifm-Llzzcs-YLD with vit D 1 EACH tablet 1 tab PO DAILY RF: 0 Discontinued calcium carbonate [Calcium 500] 500 mg calcium (1,250 mg) tablet 500 mg PO DAILY RF: 0 No Action nystatin 100,000 unit/gram powder 1 applic Topical BID PRNQty: 60 RF: 12 Discharge Instructions Additional Instructions: DSU Colonoscopy Post- Op Instructions Instructions for Everyone who is given Anesthesia: For your safety, please do the following for the next twenty-four (24) hours: *Do Not operate a motor vehicle (car, truck, motorcycle, etc.) *Do Not drink alcoholic beverages or use any recreational drugs for the first 24 hours or while taking pain medications. The medications in your body may have a reaction that can be dangerous. *Do Not make any important decisions or sign any important papers. Findings:x2 large polyps in right colon diverticula hiatal hernia on stomach scope -start protonix Continue with lifestyle modifications: no alcohol, tobacco products, Aspirin or NSAID's (ibuprofen, Motrin, Naprosyn, aleve, etc), soda pop/any carbonated beverages, caffeine (including tea & chocolate), and acidic foods, (tomatoes, c itrus, onions, peppermints) spicy or fried/fatty foods. Do not lie down for 30 minutes after eating, and do not eat 2 hours prior to bedtime. Avoid wearing tight fitting clothing/ belts -on Wednesday 05/24- start Miralax 17grams BID until follow up appt. Follow up: Next 05/27. My office will call on Monday to arrange an appointment 1. No lifting over 20 pounds or strenuous activity for the first 72 hours after your procedure. After 72 hours, slowly work back into your regular activities. But, you may feel fatigued for a few days. 2. I would like you to stay on a soft/low fiber diet for the next 5 days. -I am going to keep you on antibiotics for the next 4 days after discharge. You are also given a pro-biotic to help prevent diarrhea. 3. You may have a bloated, gaseous feeling in your belly (abdomen) after a colonoscopy. Passing gas and belching will help. Walking or lying down on your left side with your knees flexed may relieve the discomfort. -no aspirin or NSAID's (ibuprofen/aleve,etc) for 2 weeks. Tylenol is OK. Soft diet for the next 4 days after discharge. -levsin for mild abdominal cramping (minor cramps are normal. Severe pain is not! If this occurs- go to the ER.). Call the office at [phone] (Office) or [phone] (Hospital) right away if you notice any of the following: a.Vomiting of blood or ?coffee ground stools?. b.Rectal bleeding 1Tbsp, blood clots or continuous bleeding. c.Severe belly (abdominal) pain. d.A hard distended belly (abdomen) and an inability to pass gas. 4. Please don?t expect to have a normal BM (bowel movement) for 2-3 days after your procedure. 5. If there are questions regarding the findings of your procedure, please contact your doctor 6. If you are unable to contact your doctor with a problem, contact the hospital at [phone]. 7. Continue all your regular medications unless directed otherwise. I understand the above instructions and have no questions. Signature of Patient or Adult Escort Name of Responsible Adult Escort Signature of Nurse Date/Time Gastrointestinal Soft Diet Overview Overview What is a gastrointestinal soft diet? This diet is soft in texture, low in fiber, and easy to digest. The goal is to decrease) in the bowel that may cause and discomfort. This diet is often used after abdominal surgery. Meats & Meat Substitutes ? Foods Allowed: Chicken, turkey, fish, tender cuts of beef and pork, ground meats, eggs, creamy nut butters, tofu, skinless hot dogs, sausage patties without whole spices ? Foods to Avoid : Tough, fibrous meats with gristle, meat with casings (hot dogs, sausage, kielbasa), lunch meats with whole spices, shellfish, beans, chunky peanut butter, nuts Fruits and Juices ? Foods Allowed: Fruit juices without pulp, banana, avocado, applesauce, canned peaches and pears, cooked fruit without the skin/seeds. Ground or over- cooked fruits. Fruits ground finely in a ?smoothie?. ? Foods to Avoid: Juices with pulp, fresh fruit (except banana and avocado), dried fruits, canned fruit cocktail and pineapple, coconut, frozen/thawed berries Vegetables ? Foods Allowed: Well-cooked or canned vegetables, potatoes without skin, tomato sauces, vegetable juice ? Foods to Avoid: Raw vegetables, all corn, all mushrooms, stewed tomatoes, potato skins, stir-doll vegetables, sauerkraut, pickles, olives, all dried beans, peas, and legumes Cereals and Grains ? Foods Allowed: Low- fiber dry or cooked cereals (less than 2 grams fiber per serving), white rice, pasta, macaroni, or noodles ? Foods to Avoid: Cereals with nuts, berries, dried fruits, whole grain cereals, bran cereals, granola, brown or wild rice, whole grain pasta Breads and Crackers ? Foods Allowed: White/refined breads and rolls, plain bagel, toast, plain crackers, vincenzo crackers ? Foods to Avoid: Whole grain breads- including white whole grain; bread/ rolls with raisins, nuts or seeds, multi-grain crackers Dairy ? Foods Allowed: Milk, cheese, yogurt, milkshakes, pudding, ice cream, cottage cheese, sherbet ; lactose free or low lactose versions if lactose intolerant ? Foods to Avoid: Dairy product mixed with fresh fruit (except banana), berries, nuts or seeds Desserts ? Foods Allowed: Plain cake, pudding, custard, ice cream, sherbet, gelatin, fruit whips ? Foods to Avoid: Any dessert that contains nuts, dried fruits, coconut, or fruits with seeds Herbs and Spices ? Foods Allowed: All ground spices or herbs, salt ? Foods to Avoid: Whole spices such as peppercorns, whole cloves, anise seeds, celery seeds, jazlyn, monique seeds, and fresh herbs Snacks/Other Foods ? Foods Allowed: Sugar, honey, jelly, mayonnaise, mustard, soy sauce, oil, butter, margarine, marshmallows, cookies without dried fruits or nuts, snack chips and pretzels using refined flours ? Foods to Avoid: Carbonated beverages, jams or jellies with seeds, popcorn After several weeks, slowly start to reintroduce the ?Foods to Avoid? back into your diet unless your doctor has told you otherwise. Try a small portion of one of these foods each day. If it does not bother you within 24 hours, it can be added to your diet. Continue to add new foods in this way. Some people may continue to have food sensitivities and may need to continue to avoid certain foods. If you cannot tolerate a food, avoid that food for a few weeks before you try it again. Guidelines when eating 1. Avoid any food that you cannot tolerate or that causes gas, bloating, or stomach pain. 2. Make time for your meals. Do not eat while you are in a hurry. Cut your food into small pieces. Chew each bite to a mashed potato consistency. Do not eat when you cannot concentrate on chewing well. 3. Drink at least 6-8 cups of fluid per day Fluids include: water, coffee, tea, juice, milk, popsicles, soups, gelatin, pudding, ice cream, sherbet, and yogurt. In addition, choose caffeine-free beverages more often, especially if you are having diarrhea. 4. A daily multivitamin may be recommended if diet is limited in amounts or variety of foods. Do not take any herbal supplements without first checking with your doctor. Referrals: Nury Arenas, [OSTEOPATHIC DOCTOR] - Activity:: see above Equipment/Supplies:: No Equipment Needed Diet:: see above Discharge Orders Discharge Orders: Discharge Order (Routine); Ordered 05/22/21 Ordered By: Gracie Berger DS: Summary Time Spent with Patient providing and/or coordinating discharge services: Less than 30 minutes Status at Discharge Functional status at discharge: independent ambulation Overall status at discharge: patient is back to baseline Mental Status: mental status grossly normal Speech and Movement: speech and movement normal Mood: congruent mood Affect: normal affect Exam Const General: cooperative, healthy appearing and comfortable HENMT Head: normal to inspection, normocephalic and atraumatic Resp Effort & Inspection: normal respiratory effort, able to speak in complete sentences, no audible wheezes and no respiratory distress Cardio Rate: regular rate Rhythm: regular rhythm GI Inspection: normal to inspection and non-distended Palpation: soft, not firm, no guarding, not rigid and nontender Skin General skin exam: no rashes or lesions noted Neuro General: patient alert, patient awake and patient oriented x3 Extrem General: no clubbing, cyanosis or edema Psych Mental Status: mental status grossly normal Speech and Movement: speech and movement normal Mood: congruent mood Affect: normal affect DS: Data Vitals/I&O Vitals and I&O: Vital Signs Temperature 98.2 F 05/22/21 15:42 Temperature Source Tympanic 05/22/21 15:42 Pulse 68 05/22/21 15:42 Pulse Rhythm Regular 05/22/21 08:53 Respiratory Rate 16 05/22/21 15:42 Respiratory Effort Non-Labored 05/22/21 08:53 Respiratory Depth Normal 05/22/21 08:53 Respiratory Pattern Normal 05/22/21 08:53 Blood Pressure 111/68 05/22/21 15:42 Pulse Oximetry 98 05/22/21 15:42 Oxygen Delivery Method Room Air 05/22/21 15:42 Oxygen Flow Rate 0 05/22/21 15:42 Pain Level 3 05/22/21 15:42 Intake & Output 05/21/21 05/22/21 05/22/21 23:59 11:59 23:59 Intake Total 1700 / 1700 740 / 740 Output Total 650 / 650 1150 / 1150 Balance 1050 / 1050 -410 / -410 Weight 145 lb 8.081 oz Intake: IV 1700 / 1700 410 / 410 Oral 330 / 330 Output: Urine 650 / 650 1150 / 1150 Other: Urine Color Yellow Straw Urine Appearance Clear Clear Urine Odor None Normal Comment pt voided in toilet Emesis Description None Voiding Methods Toilet Toilet Data Completed and Pending Labs on day of discharge: Labs from last 24 hours 05/22/21 06:30 WBC 8.86 RBC 4.20 Hgb 12.7 Hct 39.2 MCV 93.3 MCH 30.2 MCHC 32.4 RDW 12.7 Plt Count 229 MPV 9.9 Immature Gran % 0.2 Neutrophils % 67.4 Lymphocytes % 22.8 Monocytes % 8.8 Eosinophils % 0.5 Basophils % 0.3 Nucleated RBC % 0 Absolute Neutrophils 5.97 Absolute Lymphocytes 2.02 Absolute Monocytes 0.78 Absolute Eosinophils 0.04 Absolute Basophils 0.03 PFSH All Active Problems (Updated 05/21/21 @ 17:26 by Nury Arenas DO) Adenomatous colon polyp (Acute) cecum 06/08 Diverticula of colon (Acute) Hiatal hernia (Chronic) Chronic GERD (Acute) RLQ abdominal pain (Chronic) Trochanteric bursitis, right hip (Acute) Injection: 03/05/2021 Pes anserinus bursitis of right knee (Acute) Bilateral thumb pain (Acute) Right knee injury (Acute) DNR (do not resuscitate) (Acute) Constipation (Acute) Stress at home (Acute) Vertigo (Acute) Wound cellulitis (Acute) Epigastric abdominal pain (Acute) Chest wall pain, chronic (Acute) History of right shoulder replacement (Acute) Hypertension (Chronic) Headache (Acute) Shoulder pain (Chronic) Ybroi-1-lbivoauwbyq deficiency (Acute) Upper airway resistance syndrome (Acute) Sinusitis (Acute) Short of breath on exertion (Acute 07/17/14) Gastritis (Acute) Essential hypertension (Acute 02/12/13) Chronic cystitis (Acute) Arthritis of left hip (Acute 08/02/16) Malignant neoplasm of urinary bladder (Acute) Skin cancer, basal cell (Acute) Spinal stenosis (Acute) Vitamin D deficiency (Chronic 12/28/11) Trigeminal neuralgia (Chronic 09/17/14) Positive ASH (antinuclear antibody) (Chronic 06/07/16) Osteopenia (Chronic) dexa 2003 showing T-scores -1.6, -0.7, 1.1 Peripheral neuropathy (Chronic 09/21/15) Neck pain (Chronic 05/31/16) Lethargy (Chronic 05/11/15) Lumbago (Chronic) MRI in 1995 showed DJD and DDD. No stenosis or herniation.; 02/22/10-steroid inj. into the greater trochanteric bursa-Dr. 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 visual changes, repeated 2005 was normal; visual speech changes-MRI/MRA 2004 showed small vessel disease in the adali ? of ischemic disea Depressive disorder (Chronic) Carotid artery stenosis (Chronic) MRI in 2004 shows carotid on the left 50-60% occlusion. vision and speech changes. Balance disorder (Chronic 08/31/17) Asthma, exercise induced (Chronic 10/03/13) Aphthous ulcer (Chronic 01/30/14) Anxiety (Chronic) Lumbar back pain with radiculopathy affecting right lower extremity (Chronic) Spondylosis of lumbar region without myelopathy or radiculopathy (Chronic) Medical History Abdominal or pelvic swelling, mass, or lump, left lower quadrant (03/16/01) Abnormal weight loss (01/30/17) Anemia (12/26/11) Chronic maxillary sinusitis Cough (08/14/12) Epicondylitis Giardiasis Granulomatous disorder of the skin and subcutaneous tissue, unspecified Hematoma of eyelid Hematuria Herpes zoster History of skin cancer Hypokalemia (12/26/11) Myalgia Postoperative examination Primary osteoarthritis of left knee Right sided facial pain Vulvar pain (09/16/11) Surgical History Appendectomy (04/17/80) Bladder Surgery (~1994) resection Bursectomy Left trochanteric Cholecystectomy (~1980) Colonoscopy - MAC (~05/21/21) 2000 Dilation and curettage 1975 1981 EGD - MAC (~2000) History of esophagogastroduodenoscopy (~05/21/21) 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 Hunter [place] [facility] [place]. August 2018 Rotator Cuff Repair 12/01/17 (R) Nita Tonsillectomy and adenoidectomy as a small child 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 MCLAUGHLIN LEFT total hip not right. Family History Mother , 89 Essential hypertension Heart disease Hyperlipidemia Stroke Father Kpnru-9-dzmuvgrehff deficiency liver Diabetes Asthma Sister , 54 Pwiuq-8-mgvokoqqluv deficiency lungs Lung transplanted B/L Sister Essential hypertension Hyperlipidemia Asthma A CHILD Maternal Grandfather , 89 Diabetes Essential hypertension Depression Paternal Grandfather Heart disease Asthma Maternal Grandmother , 71 Essential hypertension Hyperlipidemia Stroke Paternal Grandmother , 83 Essential hypertension Heart disease Hyperlipidemia Stroke Daughter No problems noted. Social History Smoking/Tobacco Use Status: Never Second Hand Exposure: Yes Smoking risk assessment performed?: Yes Alcohol Intake: never Drug use: Never Substance use type: does not use Caregiver/Support person: No Household members: spouse Housing: house Communication Needs: None Do you need help understanding health information?: Rarely Pets and animals: No Sexually active: No Do you think of yourself as: straight/heterosexual Current gender identity: male What is your relationship status?: How often do you talk on the phone with friends or family?: three or more times per week How often do you get together with friends or relatives?: three or more times per week How often do you attend uatsdin or yazdanism services?: 1-3 times per year Do you belong to any clubs or organized social groups?: no Panel score (0-1 are the most socially isolated patients): 2 What type of physical activity do you participate in: other Details: PT 2x/week Duration: 45-60 minutes/day Frequency: daily Elena/Gnosticist: Jainism Special elena needs: No Seatbelt use: always Helmet use: Yes Helmet use: always Drive intox or ride w/intox driver license examiner: No Do you feel safe at home: Yes Do you feel safe in your relationship?: Yes
== END 2021-05-22 16:59 | disposition home or self-care (01) | DRG 392 ==
LOC: MS 13:06
PROVIDERS: Admitting Provider Surgery; PCP Family Medicine; Visit Provider Surgery
PROC: 0DBH8ZX Excision of Cecum, Via Natural or Artificial Opening Endoscopic, Diagnostic (ICD-10-PCS; CPT 45385; principal; 2021-05-21 09:45)
DX: K59.09 Other constipation (principal); Q43.8 Other specified congenital malformations of intestine; D12.0 Benign neoplasm of cecum; K57.30 Diverticulosis of large intestine without perforation or abscess without bleeding; K44.9 Diaphragmatic hernia without obstruction or gangrene; K21.9 Gastro-esophageal reflux disease without esophagitis; Z66 Do not resuscitate; I10 Essential (primary) hypertension; Z96.611 Presence of right artificial shoulder joint; E88.01 Alpha-1-antitrypsin deficiency; E55.9 Vitamin D deficiency, unspecified; G62.9 Polyneuropathy, unspecified; F32.9 Major depressive disorder, single episode, unspecified; F41.9 Anxiety disorder, unspecified; M47.26 Other spondylosis with radiculopathy, lumbar region; M48.061 Spinal stenosis, lumbar region without neurogenic claudication; M85.80 Other specified disorders of bone density and structure, unspecified site; I65.29 Occlusion and stenosis of unspecified carotid artery; J45.990 Exercise induced bronchospasm
CPT/HCPCS: 45385; 45381; 43239; 36415; 88305; 99221; 99238; 85025; J0744; J2270; J2405; J3490

== ENCOUNTER → 2021-05-27 14:32 | Outpatient (BNVA) | payer MEDICARE, OTHER, SELFPAY | PROVIDERS: PCP Family Medicine; Referring Provider Family Medicine; Visit Provider Surgery | DX: J44.9 Chronic obstructive pulmonary disease, unspecified (principal); K63.5 Polyp of colon; K59.00 Constipation, unspecified; K21.9 Gastro-esophageal reflux disease without esophagitis; K57.30 Diverticulosis of large intestine without perforation or abscess without bleeding; Z48.815 Encounter for surgical aftercare following surgery on the digestive system | CPT/HCPCS: 99213 ==

== ENCOUNTER 2021-07-06 01:12 | Outpatient (CLI) | payer MEDICARE, OTHER, SELFPAY ==
--- NOTE | 2021-07-06 07:00 | DI.RAD_ITS ---
Exam(s) XR KNEE RT 3V AP,LAT,TITI EXAM: XR KNEE RT 3V AP,LAT,TITI INDICATION: fall on knee, h/o replacement,rt knee pain, [id number]. COMPARISON: CR XR KNEE RT 3V AP,LAT,TITI from 01/18/2021 TECHNIQUE: 2D digital imaging was performed. Three views FINDINGS: There has been no change in the appearance of the total knee prosthesis. No abnormal bony lucencies are seen. DATA REPOSITORY: RADIATION DOSE DELIVERED:
== END 2021-07-06 01:32 ==
PROVIDERS: PCP Family Medicine; Visit Provider Family Medicine
DX: M25.561 Pain in right knee (principal); Z96.651 Presence of right artificial knee joint
CPT/HCPCS: 73562

== ENCOUNTER → 2021-10-15 08:20 | Outpatient (BNVA) | payer MEDICARE, OTHER, SELFPAY | PROVIDERS: PCP Family Medicine; Referring Provider Family Medicine; Visit Provider Physical Therapy Assistant | DX: Z86.010 Personal history of colon polyps (principal); Z12.11 Encounter for screening for malignant neoplasm of colon ==

== ENCOUNTER 2021-10-25 02:54 | Outpatient (CLI) | payer MEDICARE, OTHER, SELFPAY ==
[2021-10-25 12:44] LABS: Source Nasal/Nares
[2021-10-25 15:37] LABS: COVID-19 PCR Negative (Negative)
== END 2021-10-25 02:55 | disposition home or self-care (01) ==
PROVIDERS: PCP Family Medicine; Visit Provider Surgery
DX: Z20.822 Contact with and (suspected) exposure to COVID-19 (principal); Z01.818 Encounter for other preprocedural examination
CPT/HCPCS: 87635

== ENCOUNTER 2021-10-26 09:06 | Day surgery (SDC) | payer MEDICARE, OTHER, SELFPAY ==
[2021-10-26 09:19] VITALS: BP 128/62; PULSE 84; RESP 19; TEMP 36.7; O2SAT 94
[2021-10-26] MEDS: Lactated Ringers 1,000 ML 80 ML IV (09:49)
--- NOTE | 2021-10-26 10:26 | W.ANESPRE ---
General Info Date of Service Date Performed: 10/26/21 Height: 5 ft 2 in Weight: 66.7 kg Body Mass Index (BMI): 26.9 Surgical Procedure: Operation Date: 10/26/21 10:20 Proposed Procedure Side Surgeon p Colonoscopy w/Possible Hemorrhoid Banding Nury Arenas, DO Meds Allergies and Home Medications Allergies Allergy/AdvReac Type Severity Reaction Status Date / Time oxycodone HCl [From Percocet] AdvReac hallucinati Verified 10/26/21 09:35 ons Home Medication Medication Instructions Recorded multivitamin 1 cap PO DAILY 07/14/17 cholecalciferol (vitamin D3) 25 1,000 unit PO DAILY 11/21/17 mcg (1,000 unit) capsule (Vitamin D3) glucosamine 750 lc-xrsxra-zos 2-C 1 tab PO DAILY 12/01/17 30 mg-D3 1,000 unit-ricardo 1 mg tablet (Kpdlutvaluy-Ncuhgbjjtvu-GOL + vitD) nystatin 100,000 unit/gram topical 1 applic topical BID PRN #60 grams 06/19/18 powder acetaminophen 500 mg tablet 1,000 mg PO Q8H PRN pain #90 tabs 04/03/19 propylene glycol 0.6 % eye drops 1 drp ophthalmic (eye) TID PRN 06/08/20 (Systane Complete) L. acidophilus,casei,rhamnosus 50 1 cap PO DAILY #30 caps 05/21/21 billion cell capsule,delayed release (Bio-K plus) pantoprazole 40 mg tablet,delayed 40 mg PO DAILY #30 tabs 05/21/21 release (Protonix) citalopram 20 mg tablet 20 mg PO DAILY #90 tab-caps 10/01/21 bisacodyl 5 mg tablet,delayed 5 mg PO ONCE #4 tabs 10/15/21 release (Dulcolax (bisacodyl)) polyethylene glycol 3350 17 17 g PO ONCE #238 grams 10/15/21 gram/dose oral powder Current Visit Medications: Current Medications Generic Name Dose Route Start Last Admin Trade Name Freq PRN Reason Stop Dose Admin Ringer's Solution 1,000 mls @ 80 mls/hr 10/26/21 06:00 10/26/21 09:49 IV 11/24/21 23:59 80 mls/hr INFUSION LILY Administration IV Miscellaneous Supplies 1 each 10/26/21 06:00 Iv Access IV 11/24/21 23:59 DIRECTED LILY Sodium Chloride 0 ml 10/26/21 06:00 Normal Saline Flush 10 Ml Syr IV 11/24/21 23:59 PRN PRN Sodium Chloride 0 ml 10/26/21 06:00 Normal Saline 10 Ml Vial IJ 11/24/21 23:59 DIRECTED PRN Sterile Water 0 ml 10/26/21 06:00 Water,Injection,Sterile 10 Ml Vial IJ 11/24/21 23:59 DIRECTED PRN PFSH Active Problems Active Problems: Problem Status Onset Code Carotid artery stenosis I65.29 Diverticulosis of colon without diverticulitis K57.30 Positive ASH (antinuclear antibody) 06/07/16 R76.8 Short of breath on exertion 07/17/14 R06.02 Epigastric abdominal pain R10.13 Constipation K59.00 DNR (do not resuscitate) Z66 RLQ abdominal pain R10.31 Diverticula of colon K57.30 Adenomatous colon polyp D12.6 Dysplastic colon polyp K63.5 Medical History Medical History Abdominal or pelvic swelling, mass, or lump, left lower quadrant (03/16/01) Abnormal weight loss (01/30/17) Tvpyt-5-nifxykqeoeb deficiency Anemia (12/26/11) Anxiety Aphthous ulcer (01/30/14) Arthritis of left hip (08/02/16) Asthma, exercise induced (10/03/13) Balance disorder (08/31/17) Bilateral thumb pain Chest wall pain, chronic Chronic cystitis Chronic GERD Chronic maxillary sinusitis Cough (08/14/12) Depressive disorder 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 visual changes, repeated 2005 was normal; visual speech changes-MRI/MRA 2004 showed small vessel disease in the adali ? of ischemic disea Elevated blood pressure reading Epicondylitis Essential hypertension (02/12/13) Gastritis Gastroesophageal reflux disease with esophagitis (06/27/08) 06/10/08-06/12/08 Single Capsule Loza pH study placed after EGD Giardiasis Granulomatous disorder of the skin and subcutaneous tissue, unspecified Headache Hematoma of eyelid Hematuria Herpes zoster Pt. states years ago Hiatal hernia History of skin cancer Hypertension Hypokalemia (12/26/11) Lethargy (05/11/15) Lumbago MRI in 1995 showed DJD and DDD. No stenosis or herniation.; 02/22/10-steroid inj. into the greater trochanteric bursa-Dr. Moya Lumbar back pain with radiculopathy affecting right lower extremity Malignant neoplasm of urinary bladder Myalgia Neck pain (05/31/16) Osteopenia dexa 2003 showing T-scores -1.6, -0.7, 1.1 Peripheral neuropathy (09/21/15) Pes anserinus bursitis of right knee Postoperative examination Primary osteoarthritis of left knee Right knee injury Right knee pain Right sided facial pain Shoulder pain Sinusitis Skin cancer, basal cell Skin tag, acquired Spinal stenosis Spondylosis of lumbar region without myelopathy or radiculopathy Stress at home Trigeminal neuralgia (09/17/14) Trochanteric bursitis, right hip Injection: 03/05/2021 Upper airway resistance syndrome Vertigo Vitamin D deficiency (12/28/11) Vulvar pain (09/16/11) Wound cellulitis Surgical History Surgical History Appendectomy (04/17/80) Bladder Surgery (~1994) resection Bursectomy Left trochanteric Cholecystectomy (~1980) Colonoscopy - MAC (~05/21/21) 2000 Dilation and curettage 1975 1981 EGD - MAC (~2000) History of esophagogastroduodenoscopy (~05/21/21) History of right shoulder replacement 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 Hunter Hx of shoulder replacement [facility] Dr. Segundo. August 2018 Rotator Cuff Repair 12/01/17 (RSalinas Moya S/P knee replacement Tonsillectomy and adenoidectomy as a small child 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 MCLAUGHLIN LEFT total hip not right. Tobacco Smoking/Tobacco Use Status: Never Passive smoking exposure: Yes Second hand exposure: Yes Alcohol Alcohol Intake: never Substance Use Substance use: Never Substance use type: does not use Vital Signs and Lab Results Vital Signs Most Recent Vital Signs in EMR: Most Recent Vital Signs Temp Pulse Resp BP Pulse Ox 36.7 C 84 19 128/62 94 10/26/21 09:19 10/26/21 09:19 10/26/21 09:19 10/26/21 09:19 10/26/21 09:19 Lab Results Blood Type / Crossmatch: No Data to Display Complete Blood Count: No Data to Display Complete Metabolic Panel: No Data to Display Liver Function Panel: No Data to Display Coagulation Panel: No Data to Display Cardiac Panel: No Data to Display Arterial Blood Gas: No Data to Display Venous Blood Gas: No Data to Display Pancreas Panel: No Data to Display Thyroid Panel: No Data to Display Infectious Disease: Coronavirus (COVID-19)(PCR) Negative (Negative) 10/25/21 08:35 Coronavirus 2019 Source Nasal/Nares 10/25/21 08:35 Blood Cultures: No Data to Display Toxicology Panel: No Data to Display Imaging and Studies Imaging and Studies Study information below may be from another EMR and interpreted by another provider. Please see original notes in EMR for more complete details. Stress Test Summary: Date of study: 05/17/2017 *PATIENT PRESENTATION* Height: 157.5cm (62in) Blood Pressure: Weight: 72.3kg (159lb) BSA: 1.8m^2 Referring physician: Rush Gonzalez Ordering physician: Mellissa Garnett Impressions: - Normal study after maximal exercise. - Low risk of cardiac events. Summary: 1. Myocardial perfusion imaging: No myocardial perfusion defects noted. 2. The calculated left ventricular ejection fraction after stress: 70%. LV global systolic function is normal. No left ventricular regional motion abnormality. Echocardiogram Summary: Date of Exam: 08/14/14Sex: F : 4Age: 69 Exam(s) [id number] EC:Echocardiogram-Complete *[facility]* *[facility]* [address] [place] [address] Date of study: 08/14/2014 *STUDY CONCLUSIONS* Impressions: Normal study. Summary: 1. Left ventricle: The cavity size was normal. Wall thickness was normal. Systolic function was normal. The estimated ejection fraction was 60-65%. Wall motion was normal; there were no regional wall motion abnormalities. 2. Aortic valve: Trileaflet; normal thickness leaflets. 3. Mitral valve: Structurally normal valve. 4. Left atrium: The atrium was normal in size. 5. Right ventricle: The cavity size was normal. Wall thickness was normal. Systolic function was normal. 6. Tricuspid valve: Structurally normal valve. 7. Pulmonary arteries: Pulmonary systolic pressure was within the normal range. Carotid Artery Summary:: Date of Exam: 05/13/15ex: F : 1945ge: 69 Exam(s) [id number] US:Carotid SYMPTOMS/DIAGNOSIS: NECK PULSATION, OFF BALANCE, GAIT ABNORMALITY, R26.89, NECK ACHE, M54.2 BILATERAL DUPLEX CAROTID ULTRASOUND: Duplex evaluation of the carotid circulation was performed according to the usual protocol. There is little if any visible atheromatous plaque in the carotid circulation. There is bilateral antegrade vertebral flow. Flow velocities in the common internal and external carotid arteries are within normal limits bilaterally. CONCLUSION: No evidence of a hemodynamically significant carotid stenosis. Ordering provider: MELLISSA GARNETT M.D., DC Pulmonary Function Summary: DATE OF ADMIT: 09/19/13 : 1945 PRIMARY CARE PROVIDER: Mellissa Garnett M.D. INTERPRETATION OF STUDY: Spirometry shows mild obstructive airways disease with significant bronchodilator response. LUNG VOLUMES: Lung volumes show no evidence of restriction. DIFFUSION CAPACITY: Normal. AIRWAY RESISTANCE: Mildly elevated. IMPRESSION: Mild obstructive airways disease with significant bronchodilator response. Clinical correlation recommended. Anesthesia Assessment and Plan Anesthesia History Personal History: No History of Anesthesia Complications and No History of General Anesthesia Family History: No Family History of Anesthesia Complications Exercise Tolerance Exercise Tolerance: Metabolic Equivalents>4 Pertinent Negatives Pertinent Negatives: No Major Cardiovascular Symptoms or Complaints, No Major Pulmonary Symptoms or Complaints and No History of CVA/TIA Cardiac & Pulmonary Exam Cardiac Exam: Normal S1/S2 Heart Sounds Pulmonary Exam: Clear Bilateral Breath Sounds Implantable Cardiac Device Does patient have a Pacemaker or an ICD?: No Airway Exam Known Difficult Airway: No Mallampati Class: 2 Mouth Opening: Normal (> 3cm) Thyromental Distance: Less than 3 cm Neck Range of Motion: Full ROM Neck Circumference: Normal Teeth Condition: Normal Dentition ASA Classification ASA Score: ASA 3 Emergency Case?: No NPO Status NPO Status: NPO Clears >2 hours, Solids >8 hours Anesthesia Plan Resuscitation Status: DNR Fully Suspended During Perioperative Period Anesthesia Technique: General Anesthesia Airway Planned: Natural Airway Monitors Used: Standard Monitors
[2021-10-26 10:39] VITALS: BMI 26.9
--- NOTE | 2021-10-26 10:55 | BOWEL_PTH ---
PATIENT: Julissa Etienne LOC: [facility] U#:[id number] AGE/SX: 76/F ROOM: RE10/26/[address]: Nury Arenas : 1945 BED: DIS: 10/26/2021 SPEC #: [id number] RECD: 10/26/21 12:11 STATUS: KARMEN RE #: [id number] ELIAS: 10/26/21 10:[address]: Nury Arenas DEPT: Surgical Specimen RECD BY: Zuly Multani ENTERED: 10/26/21 12:13 SP TYPE: Bowel OTHR DR: Mellissa Garnett MD, DC Tissues: 1 - BIOPSY BOWEL 2 - BIOPSY BOWEL 3 - BIOPSY BOWEL Procedures: GROSS AND MICRO LEVEL 4 Comments: [id number]
[2021-10-26 11:32] VITALS: BP 119/66; PULSE 67; RESP 16; TEMP 36.7; O2SAT 95
--- NOTE | 2021-10-26 11:36 | PDOC.DSDIS_ITS ---
Discharge Plan Disposition Patient Disposition: HOME Condition: Good Discharge Details Reason For Visit: colon scope Attending Provider: Nury Arenas Primary Care Provider: Mellissa Garnett Home Meds and New Rx's Prescriptions: No Action Systane Complete 0.6 % drops 1 drp OP TID PRN bisacodyl [Dulcolax (bisacodyl)] 5 mg tablet,delayed release (DR/EC) 5 mg PO ONCE Qty: 4 0RF Rx Instructions: Take according to provider's instructions for colonoscopy prep. polyethylene glycol 3350 17 gram/dose powder 17 g PO ONCE Qty: 238 0RF Rx Instructions: To be taken as directed by prescriber's office for colonoscopy prep. nystatin 100,000 unit/gram powder 1 applic Topical BID PRNQty: 60 Rx Instructions: 1-3 GM BID citalopram 20 mg tablet 20 mg PO DAILY Qty: 90 3RF acetaminophen 500 mg tablet 1,000 mg PO Q8H PRN (Reason: pain) Qty: 90 3RF pantoprazole [Protonix] 40 mg tablet,delayed release (DR/EC) 40 mg PO DAILY Qty: 30 12RF Bio-K plus 50 billion cell capsule,delayed release(DR/EC) 1 cap PO DAILY Qty: 30 0RF multivitamin 1 EACH capsule 1 cap PO DAILY cholecalciferol (vitamin D3) [Vitamin D3] 1,000 UNIT capsule 1,000 unit PO DAILY Ncfnkxnf-Ghzlyf-XTT with vit D 1 EACH tablet 1 tab PO DAILY Discharge Instructions Additional Instructions: DSU Colonoscopy Post- Op Instructions Instructions for Everyone who is given Anesthesia: For your safety, please do the following for the next twenty-four (24) hours: *Do Not operate a motor vehicle (car, truck, motorcycle, etc.) *Do Not drink alcoholic beverages or use any recreational drugs for the first 24 hours or while taking pain medications. The medications in your body may have a reaction that can be dangerous. *Do Not make any important decisions or sign any important papers. Findings: polyps diverticula Follow up: repeat in 1 yrs time *Miralax every other day to daily. 1. No lifting over 20 pounds or strenuous activity for the first 24 hours after your procedure. After 24 hours there are no restrictions on your activity but you may feel fatigued for a few days. 2. After you arrive home you may have a light meal and return to your normal diet as you can tolerate it without feeling sick to your stomach. 3. You may have a bloated, gaseous feeling in your belly (abdomen) after a colonoscopy. Passing gas and belching will help. Walking or lying down on your left side with your knees flexed may relieve the discomfort. Call the office at [phone] (Office) or [phone] (Hospital) right away if you notice any of the following: a.Vomiting of blood or ?coffee ground stools?. b.Rectal bleeding 1Tbsp, blood clots or continuous bleeding. c.Severe belly (abdominal) pain. d.A hard distended belly (abdomen) and an inability to pass gas. 4. Please don?t expect to have a normal BM (bowel movement) for 2-3 days after your procedure. 5. If there are questions regarding the findings of your procedure, please contact your doctor 6. If you are unable to contact your doctor with a problem, contact the hospital at [phone]. 7. Continue all your regular medications unless directed otherwise. I understand the above instructions and have no questions. Signature of Patient or Adult Escort Name of Responsible Adult Escort Signature of Nurse Date/Time Activity:: see above Diet:: see above Discharge Orders Discharge Orders: Discharge Order (Routine); Ordered 10/26/21 Ordered By: Nury Arenas
[2021-10-26 11:58] VITALS: BP 130/64; PULSE 56; RESP 16; TEMP 36.4; O2SAT 98
[2021-10-26] MEDS: Ondansetron 4 MG/2 ML VIAL IVP (12:16)
[2021-10-26] MEDS: Hyoscyamine 0.125 MG SL/ORAL/CHEW SL (12:16)
--- NOTE | 2021-10-26 12:36 | W.ANESPOSTOP ---
Postoperative Evaluation Date, Time and Location Date Performed: 10/26/21 Time Performed: 12:37 Patient Location: Day Surgery Unit Vital Signs Most Recent Imported Vital Signs: Most Recent Vital Signs Temp Pulse Resp BP Pulse Ox 36.4 C L 56 L 16 130/64 98 10/26/21 11:58 10/26/21 11:58 10/26/21 11:58 10/26/21 11:58 10/26/21 11:58 Pain Score Most Recent Pain Score: Most Recent Pain Score Pain Level 0 10/26/21 11:58 Assessment Mental Status: Awake (Alert & Oriented to Patient Baseline) Airway and Respiratory Function: Patent airway with normal (patient baseline) respiratory exam Cardiovascular Function: Hemodynamically Stable Hydration Status: Adequately Hydrated Nausea & Vomiting: No Nausea or Vomiting Pain: Pt. Denies Any Pain Peripheral Nerve Block: Patient did not receive a nerve block
--- NOTE | 2021-10-26 13:14 | COLE_ITS ---
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 Monitors were applied and a time out was done. The patients name, date of , procedure, allergies to medications and metal in their body was reviewed. The patient was then sedated. Anesthesia did give glucagon prior to beginning the procedure. Her colon is very tortuous and redundant. She does require abdominal pressure to achieve the cecum. Once sedated and comfortable a rectal exam was done. External exam: x1 large ext. hemorrhoid. Internal exam revealed a normal sphincter tone and no palpable masses. The scope was then introduced and retrofelexed. Grade I X2 internal hemorrhoids were identified. The scope was then advanced to the cecum w/ mild difficulty. The colon is very tortuous and redundant. The TI and appendiceal orifice were identified. The prep was BB PS 2 in all segments for a total of 6. The lesion that had been previously tattooed in the cecum. There was some irregularity of the mucosa in this area. It was visualized under NBI and that had a normal vascular pattern. Multiple biopsies are taken from this area. But I do not think this represents recurrence of the polyp. She has moderate to severe diverticula of the simple sigmoid colon. There is no signs of active bleeding or infection. She has 2 polyps 5mm flat polyps- 1 at 30 cm and 1 at 80 cm. These are both small 5 mm flat polyps and are removed with biopsy forcep.. All specimens are retrieved and no bleeding is noted. The scope was then slowly retracted over 13 minutes back into the rectum. She did have x2 small hemorrhoids that we banded today using suction lemon grower. The left lateral and the right posterior. There was no bleeding noted. The scope was removed and the patient was woken up and taken back to Same day surgery in stable condition. The patient tolerated the procedure well and there were no immediate complications. Follow up: The patient should follow up in 1 year, (provided she is still healthy for anesthesia) unless they develop changes in bowel habits or other new gastrointestinal complaints. Of course, you should continue to have a yearly physical exam including a rectal exam, and stool for hemoccult blood testing (testing the stool for microscopic blood.) If you should ever notice any pain or difficulty having a bowel movement, blood in the stool, unexplained weight loss, or change in your bowel habits, please contact your health provider
== END 2021-10-26 12:55 | disposition home or self-care (01) ==
PROVIDERS: PCP Family Medicine; Visit Provider Surgery
PROC: 0DJD8ZZ Inspection of Lower Intestinal Tract, Via Natural or Artificial Opening Endoscopic (ICD-10-PCS; CPT 45378; principal; 2021-10-26 10:15)
DX: Z12.11 Encounter for screening for malignant neoplasm of colon (principal); K64.0 First degree hemorrhoids; Z86.010 Personal history of colon polyps; K63.5 Polyp of colon; K57.30 Diverticulosis of large intestine without perforation or abscess without bleeding; K63.89 Other specified diseases of intestine
CPT/HCPCS: 45380; 45398; 88305; J1610; J2405; J3490

== ENCOUNTER → 2021-12-28 14:48 | Outpatient (CLI) | payer MEDICARE, OTHER, SELFPAY ==
--- NOTE | 2021-12-28 09:45 | DI.RAD_ITS ---
Exam(s) XR ANKLE RT COMPLETE EXAM: XR ANKLE RT COMPLETE CLINICAL HISTORY: RT Ankel Pain--m25.579--Fell months ago. TECHNIQUE: 2D digital imaging was performed. Three views. COMPARISON: No exams were available for comparison FINDINGS: BONES: No acute fracture is present. No bony destructive lesion is seen. JOINTS: The ankle mortise is normally aligned. Mild narrowing tibiotalar joint space. SOFT TISSUE: Swelling of the medial malleolus. Vascular calcifications. IMPRESSION: No acute bony abnormality. DATA REPOSITORY: RADIATION DOSE DELIVERED:
--- OUTSIDE RECORDS SUMMARY | 2021-12-28 14:58 | XMS_ITS | Clinical Summary ---
:1945 Author Organization [facility] [place] [place] [address] Care Team Providers Name Role Phone Mellissa Garnett MD Primary Care Provider Allergies Active Allergy Reactions Severity Noted Date Comments Oxycodone Pik-Uugxtmoiy-Ewo Other (See Comments) went crazy Medications Medication Sig Dispensed Refills Start Date End Date Status citalopram (CELEXA) 20 Take 20 mg by 0 Active mg Tablet mouth daily. mv-mn/folic Take by mouth. 0 Act iban acid/calcium/vit K (WOMEN'S 50 PLUS MULTIVITAMIN ORAL) acetaminophen (TYLENOL) Take 1,000 mg by 0 Active 500 mg Tablet mouth every 6 hours as needed for Pain. calcium carbonate (TUMS) Take 1 tablet by 0 Active 200 mg calcium (500 mg) mouth daily. Tablet, Chewable ibuprofen (ADVIL;MOTRIN) Take 200 mg by 0 Active 200 mg Tablet mouth every 6 hours as needed for Pain. glucosamine/chondr green A Take by mouth. 0 Active sod (OSTEO BI-FLEX ORAL) UNABLE TO FIND Med Name: CBD 0 A ctive oil Active Problems Problem Noted Date s/p R RTSA (Dr. Segundo), 08/28/18 08/28/2018 Chronic pain in right shoulder 08/16/2018 Shoulder arthritis 08/16/2018 History of bladder cancer 06/19/2015 Bladder cancer 03/26/2012 Lumbar radicular pain 12/16/2010 Immunizations Name Administration Dates Next Due Influenza Vaccine, Whole 02/13/2006, 03/08/2005 Pneumococcal Conjugate 7 07/16/1998 Pneumococcal Polyvalent 23 08/15/1992 Td, adult 07/16/1998, 04/17/1998 Tuberculin Skin Test, PPD 12/22/2005 Family History Medical History Relation Comments Breast Cancer Neg Hx Social History Tobacco Use Types Packs/Day Years Used Date Never Smoker Smokeless Tobacco: Never Used Alcohol Use Standard Drinks/Week Comments Yes 0 (1 standard drink = 0.6 oz pure alcoho l) very rarely Alcohol Habits Answer Date Recorded How often do you have a drink containing alcohol? Never 08/16/2018 How many drinks containing alcohol do you have on a Not aske d typical day when you are drinking? How often do you have six or more drinks on one occasion? No t asked Comment: very rarely 08/28/2018 Sex Assigned at Date Recorded Not on file Last Filed Vital Signs Vital Sign Reading Time Taken Comments Blood Pressure 135/79 11/22/2018 3:16 PM EDT Pulse 80 11/22/2018 3:16 PM EDT Temperature 37.1 ??C (98.8 ??F) 09/13/2018 10:35 AM EDT Respiratory Rate 17 08/30/2018 11:19 AM EDT Oxygen Saturation 94% 08/30/2018 11:19 AM EDT Inhaled Oxygen Concentration - - Weight 71.2 kg (157 lb) 11/22/2018 3:16 PM EDT verbal Height 157.5 cm (5' 2) 11/22/2018 3:16 PM EDT verbal Body Mass Index 28.72 11/22/2018 3:16 PM EDT Plan of Treatment Health Maintenance Due Date Last Done Comments Covid-19 Vaccine (#1) 07[birth year]02/1950 Hepatitis C Screening 07/02/1961 Tdap adult 07/02/1962 Zoster vaccine (1 of 2) 07/02/1993 Bone Density Scan 07/02/2008 Pneumoccocal Vaccine: 65+ (1 - PCV) 07/02/2008 07/16/1998, 08/15/1992 Tetanus vaccine 07/16/2008 07/16/1998, 04/17/1998 Influenza (Flu) vaccine (1 of 1 - 12/16/2021 02/13/2006, Influenza standard series) Medical Devices Implanted Type Area Pottery Kiln Builder Device Shelf Model / Identifier Expiration Serial / Date Lot Liner,Tm,Rev,Poly,7d,+3,36mm ([id number]) ([employer]) - [id number] [employer] PLANTS Right: [employer] - 05/17/2026 [id number] / Implanted: Qty: 1 on 08/28/2018 by Nakia Segundo MD at [facility] / [id number] Insurance Payer Benefit Plan / Subscriber ID Effective Dates Phone Addre ss Type Group MEDICARE MEDICARE PART [id number] 2008-Presen [phone] [place] [address] [place] [phone] [employer] [id number] 2008-Presen PO [place] X 1937 [place] [phone] Advance Directives Documents on File Type Date Recorded 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
--- OUTSIDE RECORDS SUMMARY | 2021-12-28 14:58 | XMS_ITS | Encounter Summary ---
:1945 Author Organization [facility] Address [facility] [place] [address] Care Team Providers Name Role Phone Mellissa Garnett MD Primary Care Provider Encounter Details Date Type Department Care Team Description 08/09/2018 Orders Only Orthopaedics at [facility] Nakia Segundo, Right shoulder pain, [facility] MD [address] [facility] [place] [address] [address] [phone] ORTHOPAEDIC SURGERY [place], [place] [address] Social History Tobacco Use Types Packs/Day Years Used Date Former Smoker Alcohol Habits Answer Date Recorded How often do you have a drink containing alcohol? Never 08/16/2018 How many drinks containing alcohol do you have on a typical Not asked day when you are drinking? How often do you have six or more drinks on one occasion? No t asked Comment: Not asked Sex Assigned at Date Recorded Not on file documented as of this encounter Plan of Treatment Not on filedocumented as of this encounter Results XR Shoulder Right (Generic) (08/16/2018 9:26 AM EDT) Anatomical Region Laterality Modality Shoulder Right Digital Radiography Specimen (Source) Anatomical Location Collection Method / Collectio n Time Received Time / Laterality Volume Impressions 08/16/2018 1:16 PM EDT 1. ??Superior and anterior subluxation of the humeral head with respect to the glenoid, and obliteration of the acromio humeral distance, compatible with rotator cuff tear. 2. ??Severe glenohumeral joint OA, with superimposed likely subchondral fracture at the superomedial aspect of the malick l head, the latter more conspicuous than on the 06/26/2018 MRI. 3. ??AC distance widening, compatible wi th sequela of prior distal clavicle resection. Thank you for letting us participate in the care of this patient. For questions regarding this report, please contact e number below. ? Electronically signed by: GABE Pollard [facility] ([phone]), at 08/16/2018 1:16 PM Narrative 08/16/2018 1:16 PM EDT EXAMINATION: XR SHOULDER RIGHT (GENERIC) CLINICAL HISTORY: right shoulder pain TECHNIQUE: Anteroposterior internally rotated, ante roposterior externally rotated, transscapular Y-view, and axillary views of the right shoulder were obtained COMPARISON: Attention is also directed to the 018 and 06/26/2018 right shoulder MRIs FINDINGS: 2 suture anchors are seen in the proxima l humerus compatible with prior rotator cuff repair. There is superior and anterior subluxati on of the humeral head with respect to the glenoid, and the acromiohumeral dist ance is obliterated, compatible with rotator cuff tear. There is significant joint space narrowi ng at the superior and anterior aspects of the glenohumeral joint, with associat ed humeral head subchondral sclerosis, compatible with severe osteoarthropathy. In addition, there is focal subchondral lucency and contour irregularity at the superomedial aspect of the humeral head, compatible with a superimposed subchondr al fracture. There is widening of the coracoclavicula r distance compatible with a sequela of prior distal clavicle resection. Procedure Note Megan Hampton MD - 08/16/2018Formatting o f this note might be different from the original. EXAMINATION: XR SHOULDER RIGHT (GENERIC) CLINICAL HISTORY: right shoulder pain TECHNIQUE: Anteroposterior internally rotated, ante roposterior externally rotated, transscapular Y-view, and axillary views of the right shoulder were obtained COMPARISON: Attention is also directed to the 018 and 06/26/2018 right shoulder MRIs FINDINGS: 2 suture anchors are seen in the proxima l humerus compatible with prior rotator cuff repair. There is superior and anterior subluxati on of the humeral head with respect to the glenoid, and the acromiohumeral dist ance is obliterated, compatible with rotator cuff tear. There is significant joint space narrowi ng at the superior and anterior aspects of the glenohumeral joint, with associat ed humeral head subchondral sclerosis, compatible with severe osteoarthropathy. In addition, there is focal subchondral lucency and contour irregularity at the superomedial aspect of the humeral head, compatible with a superimposed subchondr al fracture. There is widening of the coracoclavicula r distance compatible with a sequela of prior distal clavicle resection. IMPRESSION 1. Superior and anterior subluxation of the humeral head with respect to the glenoid, and obliteration of the acromio humeral distance, compatible with rotator cuff tear. 2. Severe glenohumeral joint OA, with green perimposed likely subchondral fracture at the superomedial aspect of the malick l head, the latter more conspicuous than on the 06/26/2018 MRI. 3. AC distance widening, compatible with sequela of prior distal clavicle resection. Thank you for letting us participate in the care of this patient. For questions regarding this report, please contact th e number below. Electronically signed by: GABE Pollard [facility] ([phone]), at 08/16/2018 1:16 PM Nakia Segundo MD IMG DX ORDERABLES documented in this encounter Visit Diagnoses Diagnosis Right shoulder pain, unspecified chronic ity Right shoulder pain, unspecified chronic ity documented in this encounter Care Teams Doubler Operator Relationship Specialty Start Date End Date Mellissa Garnett MD PCP - General 03/09/[address] [place] [address] documented as of this encounter
--- OUTSIDE RECORDS SUMMARY | 2021-12-28 14:58 | XMS_ITS | Encounter Summary ---
:1945 Author Organization [facility] [place] [address] Care Team Providers Name Role Phone Mellissa Garnett MD Primary Care Provider Reason for Visit Consultation (Routine) - Closed Specialty Diagnoses / Procedures Referred By Contact Refer red To Contact Hematology and Diagnoses 2nd opinion on abnormal mammo Mellissa Garnett MD [facility] Hem Onc 3k Oncology [address] [place] [phone] Phone: Fax: Referral ID Status Reason Start Date Expiration Date Visits Requ ested Visits Authorized [id number] Closed 12/29/2015 12/28/2016 1 1 Encounter Details Date Type Department Care Team Description 01/20/2016 Hospital Encounter Mammography at [facility] Tank Phillips Abnormal finding on [facility] MD Julio Cesar breast imaging [facility] [id number] DIAGNOSIC [phone] [place] [address] Social History Tobacco Use Types Packs/Day Years [...] on file documented as of this encounter Medications at Time of Discharge Medication Sig Dispensed Refills Start Date End Date aspirin 81 mg Tablet, Take 81 mg by mouth 0 08/16/2018 Chewable daily. Cholecalciferol, Vitamin Take 5,000 Units by 0 10/11/2018 D3, (VITAMIN D) 1,000 mouth daily. unit Cap VITAMIN E ACETATE 0 01/20/2010 019 (VITAMIN E ORAL) documented as of this encounter Plan of Treatment Not on filedocumented as of this encounter Visit Diagnoses Diagnosis Abnormal finding on breast imaging Other (abnormal) findings on radiologica l examination of breast documented in this encounter Care Teams Acrobatic Dancer Relationship Specialty Start Date End Date Mellissa Garnett MD PCP - General 03/09/[address] [place] [address] documented as of this encounter
--- OUTSIDE RECORDS SUMMARY | 2021-12-28 14:58 | XMS_ITS | Encounter Summary ---
:1945 Author Organization [facility] [place] [address] Care Team Providers Name Role Phone Mellissa Garnett MD Primary Care Provider Encounter Details Date Type Department Care Team Description 01/20/2016 Hospital Encounter Mammography at [facility] Abnormal finding on [facility] MD Julio Cesar breast imaging [place], [place] [address] DIAGNOSIC [phone] [place] [address] Social History Tobacco Use Types Packs/Day Years [...] Not on filedocumented as of this encounter Procedures Procedure Name Priority Date/Time Associated Diagnosis Comme nts MAMMO 2D DIGITAL Routine 01/20/2016 10:57 AM Abnormal finding on Results for this DIAG KATRIN WITH CAD EDT breast imaging procedu re are in LEFT the results section. documented in this encounter Results Mammo Diag Katrin Left (01/20/2016 10:57 AM EDT) Anatomical Region Laterality Modality Breast Left Mammography Specimen (Source) Anatomical Location Collection Method / Collectio n Time Received Time / Laterality Volume Impressions 01/20/2016 11:14 AM EDT No mammographic evidence of malignancy in the left breast. This patient should resume routine screening. BI-RADS Category 1: Negative * ??The [employer] an d The Society of Breast Imaging recommend annual screening beginning at age 40 for the general female population. * ??Screening should continue as long as a woman is in good health and is expected to live 10 more years or longer . * ??All women should be familiar with th e known benefits, limitations, and potential harms linked to breast cancer screening. They also should know how their breasts normally look and feel and report any breast changes to a health care provider right away. * ??Some women, because of their family history, a genetic tendency, or certain other factors, should be screened with M RIs along with mammograms. (The number of women who fall into this category is very small.) The patient and health care provider should discuss the patient hist ory and decide if earlier screening and breast MRI are appropriate. Narrative 01/20/2016 11:14 AM EDT EXAMINATION: MAMMO 2D DIGITAL DIAG KATRIN WITH CAD LEFT CLINICAL HISTORY: OSI left breast TECHNIQUE: CC, MLO and true lateral view s were obtained of the left breast. 2-D direct digital capture, 3-D tomosynthesi s and computer aided detection (CAD) were used. COMPARISON: 09/29/2015 mammogram and ultr asound FINDINGS: There are scattered areas of fibroglandu lar density. There are no suspicious masses, suspicious microcalcifications, or areas of architectural distortion. Specifically there is no developing asym metry in the left retroareolar region. Tank Phillips MD IMG MAMMO ORDERABLES documented in this encounter Visit Diagnoses Diagnosis Abnormal finding on breast imaging Other (abnormal) findings on radiologica l examination of breast documented in this encounter Care Teams Snap Attacher Relationship Specialty Start Date End Date Mellissa Garnett MD PCP - General 03/09/10 [address] [place] [address] documented as of this encounter
--- OUTSIDE RECORDS SUMMARY | 2021-12-28 14:58 | XMS_ITS | Encounter Summary ---
:1945 Author Organization [facility] [place] [address] Care Team Providers Name Role Phone Mellissa Garnett MD Primary Care Provider Encounter Details Date Type Department Care Team Description 10/11/2018 Hospital Encounter XRay at [facility] Nakia Segundo, s/rae R RTSA ( [address] [facility] [address] MD Segundo), 08/28/18 [facility] [id number] [place] [phone] [place] [address] Social History Tobacco Use Types Packs/Day Years [...] Sig Dispensed Refills Start Date End Date acetaminophen (TYLENOL) 500 Take 1,000 mg by 0 mg Tablet mouth every 6 hours as needed for Pain. calcium carbonate (TUMS) Take 1 tablet by 0 200 mg calcium (500 mg) mouth daily. Tablet, Chewable mv-mn/folic Take by mouth. 0 acid/calcium/vit K (WOMEN'S 50 PLUS MULTIVITAMIN ORAL) citalopram (CELEXA) 20 mg Take 20 mg by mouth 0 Tablet daily. documented as of this encounter Plan of Treatment Not on filedocumented as of this encounter Procedures Procedure Name Priority Date/Time Associated Diagnosis Comme nts XR SHOULDER RIGHT Routine 10/11/2018 7:59 AM s/p R RTSA (Dr. Adelso vinson for this EDT Segundo), 08/28/18 procedure are in the results section. documented in this encounter Results XR Shoulder Right (Generic) (10/11/2018 7:59 AM EDT) Anatomical Region Laterality Modality Shoulder Right Digital Radiography Specimen (Source) Anatomical Location Collection Method / Collectio n Time Received Time / Laterality Volume Impressions 10/11/2018 9:25 AM EDT Right reverse TSA without evidence of complication. Thank you for letting us participate in the care of this patient. For questions regarding this report, please contact e number below. ? Narrative 10/11/2018 9:25 AM EDT EXAMINATION: XR SHOULDER RIGHT (GENERIC) CLINICAL HISTORY: Status post right reve rse total shoulder arthroplasty TECHNIQUE: Anteroposterior internally rotated, ante roposterior externally rotated, transscapular Y-view, and axillary radio graphs of the right shoulder were obtained COMPARISON: Right shoulder imaging studies ranging f rom 11/03/2017 through 08/28/2018 FINDINGS: Again noted is a reverse total shoulder arthroplasty. There is no dislocation. No periprosthetic fracture is seen. The components appear unchanged in position without evidence of loosening. There is no new or enlarging periprosthetic lucency. There is unchanged postsurgical appeara nce of the acromioclavicular joint. Procedure Note Megan Hampton MD - 10/11/2018Formatting o f this note might be different from the original. EXAMINATION: XR SHOULDER RIGHT (GENERIC) CLINICAL HISTORY: Status post right reve rse total shoulder arthroplasty TECHNIQUE: Anteroposterior internally rotated, ante roposterior externally rotated, transscapular Y-view, and axillary radio graphs of the right shoulder were obtained COMPARISON: Right shoulder imaging studies ranging f rom 11/03/2017 through 08/28/2018 FINDINGS: Again noted is a reverse total shoulder arthroplasty. There is no dislocation. No periprosthetic fracture is seen. The components appear unchanged in position without evidence of loosening. There is no new or enlarging periprosthetic lucency. There is unchanged postsurgical appeara nce of the acromioclavicular joint. IMPRESSION Right reverse TSA without evidence of co mplication. Thank you for letting us participate in the care of this patient. For questions regarding this report, please contact e number below. Nakia Segundo MD IMG DX ORDERABLES documented in this encounter Visit Diagnoses Diagnosis s/p R RTSA (Dr. Segundo), 08/28/18 documented in this encounter Care Teams Project Executive Relationship Specialty Start Date End Date Mellissa Garnett MD PCP - General 03/09/[address] [place] [address] [address] [facility] [address] [place] [address] documented as of this encounter
--- OUTSIDE RECORDS SUMMARY | 2021-12-28 14:58 | XMS_ITS | Encounter Summary ---
:1945 Author Organization [facility] Address [place] [id number] Care Team Providers Name Role Phone Mellissa Garnett MD Primary Care Provider Reason for Visit Auth/Cert Specialty Diagnoses / Procedures Referred By Contact Refer red To Contact Diagnoses Shoulder arthritis RIGHT SHOULDER ARTHRITIS . Procedures PRO RECONSTR TOTAL SHOULDER IMPLANT @TOTAL SHOULDER ARTHROPLASTY ([facility] 22.13) MODIFIER KUN TM REVERSE MODIFIER [place] [facility]AIR ZULY Referral ID Status Reason Start Date Expiration Date Visits Requ ested Visits Authorized [id number] 1 1 Encounter Details Date Type Department Care Team Description 08/28/2018 Surgery Main Operating Room Cinda Segundo MD TOTAL SHOULDER [facility] ARTHROPLASTY ([facility] DR 22.13) [facility] [place] [address] [place] [phone] Social History Tobacco Use Types Packs/Day Years [...] on file documented as of this encounter Last Filed Vital Signs Vital Sign Reading Time Taken Comments Blood Pressure 146/74 08/28/2018 1:17 PM EDT Pulse 87 08/28/2018 10:40 AM EDT Temperature 36.4 ??C (97.5 ??F) 08/28/2018 1:17 PM EDT Respiratory Rate 12 08/28/2018 1:17 PM EDT Oxygen Saturation 99% 08/28/2018 1:17 PM EDT Inhaled Oxygen Concentration - - Weight - - Height - - Body Mass Index - - documented in this encounter Discharge Summaries Jazzy Azevedo, FITNESS MANAGEMENT DIRECTOR - 08/30/2018 1:46 PM EDT Discharge Summary Patient Name: Julissa Etienne Patient Age: 73 y.o. Language: Macedonian Race: White Ethnicity: Not nor Admit date: 08/28/2018 Discharge date and time: 08/30/2018 Attending Physician: Amanda Segundo MD Discharge Physician: Amanda Segundo MD Follow-up Recommendations for Providers: See discharge instructions for additional details. Future Appointments Date Time Provider Department Center 09/13/2018 10:40 AM Jen Guerrero PA [address] Inpatient Provider Contact Information: Amanda Segundo MD Orthopedics: [phone] After hours and weekends, call [facility] [employer] Presenter, , and have the Orthopedic resident paged. Discharge Diagnoses (Hospital Problems) and Secondary Diagnoses (Chronic Problems): Active Hospital Problems Diagnosis ??? s/p R RTSA (Dr. Segundo), 08/28/18 ??? Shoulder arthritis Resolved Hospital Problems No resolved problems to display. Active Non-Hospital Problems Diagnosis ??? Chronic pain in right shoulder ??? History of bladder cancer ??? Bladder cancer ??? Lumbar radicular pain Operations/Major Procedures: 08/28/2018 Surgeon(s) and Role: * Amanda Segundo MD - Primary * Adriana Sorensen MD - Resident Procedure(s): RIGHT TOTAL SHOULDER ARTHROPLASTY MODIFIER KUN TM REVERSE [facility] History of Presentation: Julissa Etienne is a 73 y.o. 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 Treatment options and risks/benefits discussed from least to most invasive. Patient understands options. At this time, We could offer her a reverse TSA surgery as the next step for surgery. She would like to proceed. Hospital Course: The patient was admitted through the same day surgery program for total shoulder arthroplasty. The operative course was uneventful. Julissa Etienne was admitted for pain control, physical therapy andobservation. On the morning of POD#1, she was transitioned to oral pain medications with good effect. She was seen by Physical and Occupational therapy for exercises and mobilization. Post- op plan willbe for sling immobilization of the shoulder for the next 6 weeks, coming out only for gentle elbow, wrist, and hand range of motion. No formal shoulder therapy, range of motion, or activity should be done for the first 6 weeks. The drain was removed POD#2 and site benign. On POD#2 she was seen again by PT for mobilization and exercises. Ms. Etienne did not have a bowel movement prior to discharge but was passing flatus and taking po without difficulty. On POD#2 the patient was deemed stable for discharge to home. Vital Signs at Discharge: Weight: Wt Readings from Last 1 Encounters: 05/14/19 72.1 kg (159 lb) Height: Ht Readings from Last 1 Encounters: 05/14/19 157.5 cm (5' 2) HC: HC Readings from Last 1 Encounters: No data found for HC BMI: Body mass index is 29.08 kg/m??. Last value Range last 24 hrs Temperature Temp: 36.7 ??C (98.1 ??F) Temp: [36.4 ??C (97.5 ??F)-37.3 ??C (99.1 ??F)] Heart Rate Heart Rate: (!) 105(94 at rest incr to 105 with mobility) Heart Rate: [105] Blood Pressure BP: 124/63 BP: (94-127)/(61-64) Respiratory Rate Resp: 17 Resp: [15-22] SpO2 SpO2: 94 % SpO2: [89 %-97 %] Art BP BP (Arterial Line): -- Functional and Cognitive Status: Patient mobilizing with right arm in an immobilizer sling, cognitively intact at baseline mental status at time of discharge. Important Lab Data: Last 3 wbc, hgb, hct plt Recent Labs 08/30/18 0358 08/29/18 0431 08/16/18 1122 WBC 8.7 11.0* 7.7 HGB 11.2* 11.5* 13.3 HCT 34.9* 35.2* 40.1 PLATELET 178 193 214 Last 3 Lytes Recent Labs 08/30/18 0358 08/29/18 0431 NA 142 142 K 4.2 3.8 CL 105 106 CO2 28 26 BUN 13 9 CREATININE 0.57* 0.62* Studies: Xray Shoulder Right (generic) Result Date: 08/28/2018 EXAMINATION: XR SHOULDER RIGHT (GENERIC) CLINICAL HISTORY: s/p R RTSA 4 View TECHNIQUE: 4 views RIGHT shoulder. AP internal and external rotation, scapular Y, and x-ray views the right shoulder. COMPARISON: Right shoulder radiographs 08/16/2018. FINDINGS: Interval reverse total shoulder arthroplasty. No periprosthetic fracture. There is a surgical drain projecting over the soft tissues of the right shoulder. There is scattered soft tissue gas around the right shoulder. No gross malalignment. Interval reverse total shoulder arthroplasty. No immediate hardware complications. Thank you for letting us participate in the care of this patient. For questions regarding this report, please contact the number below. Electronically signed by: Angelica London [facility] ([phone]), at 08/28/2018 3:53 PM Pending Studies and Lab Data at Discharge: None Transfusions: No Discharge Conditions/Prognosis: Stable, awake, and alert. Mobilizing as noted above, pain controlledon oral medications. Discharge to: Home Updated Allergies/ADRs: Allergies Allergen Reactions ??? Oxycodone Emd-Mxnzhudun-Noh Other (See Comments) went crazy Immunizations Given this Hospitalization: Immunization History Administered Date(s) Administered ??? Influenza Vaccine, Whole 03/08/2005, 02/13/2006 ??? Pneumococcal Conjugate 7 07/16/1998 ??? Pneumococcal Polyvalent 23 08/15/1992 ??? Td, adult 04/17/1998, 07/16/1998 ??? Tuberculin Skin Test, PPD 12/22/2005 Discharge Medications: Your Medications New Medications Dose Details acetaminophen 500 mg Cap Take 2 capsules by mouth every 8 hours for 10 days. Replaces: acetaminophen 500 mg Tab 1000 mg Refills: 0 aspirin 81 mg Tbec Take 1 tablet by mouth 2 times daily for 30 days. 81 mg Quantity: 60 tablet Refills: 0 gabapentin 300 mg Cap Commonly known as: NEURONTIN Take 1 capsule by mouth nightly for 26 days. 300 mg Quantity: 28 capsule Refills: 0 HYDROmorphone 2 mg Tab Commonly known as: DILAUDID Take 1-2 tablets by mouth every 4 hours as needed for Pain. 2-4 mg Quantity: 35 tablet Refills: 0 polyethylene glycol 17 gram/dose Powd Commonly known as: MIRALAX Take 17 g by mouth 2 times daily as needed for up to 30 days. 17 g Refills: 0 senna-docusate 8.6-50 mg Tab Commonly known as: PERICOLACE Take 2 tablets by mouth 2 times daily as needed for Constipation for up to 30 days. 2 tablet Refills: 0 Continued medications, unchanged Dose Details calcium carbonate 200 mg calcium (500 mg) Chew Commonly known as: Tums Take 1 tablet by mouth daily. 1 tablet Refills: 0 citalopram 20 mg Tab Commonly known as: CeleXA Take 20 mg by mouth daily. 20 mg Refills: 0 Vitamin D 1,000 unit Cap Take 5,000 Units by mouth daily. Generic drug: cholecalciferol (Vitamin D3) 5000 Units Refills: 0 WOMEN'S 50 PLUS MULTIVITAMIN ORAL Take by mouth. Refills: 0 STOPPED Medications acetaminophen 500 mg Tab Commonly known as: TYLENOL Replaced by: acetaminophen 500 mg Cap glucosamine sulfate 500 mg Tab mupirocin 2 % Oint Commonly known as: BACTROBAN Smoking Status at Discharge: Social History Tobacco Use Smoking Status Never Smoker Smokeless Tobacco Never Used Instructions for Rehab Providers or PCP: See Below Instructions Given to Patient at Discharge: Patient Instructions Activity: 1. Wear your sling at all times for 6 weeks after surgery. 2. You may move your elbow and wrist in front of your body to maintain range of motion. 3. Non-weight bearing right upper extremity. 4. No formal shoulder therapy, range of motion, or activity should be done for the first 6 weeks. Postoperative Plan: Post-op plan will be for sling immobilization of the shoulder for the next 6 weeks, coming out onlyfor gentle elbow, wrist, and hand range of motion. No formal shoulder therapy, range of motion, or activity should be done for the first 6 weeks. Anticoagulation: You have been discharged on Enteric-coated Aspirin 81 mg twice a day for 30 days. This medication will help decrease your chance of developing a blood clot. Take this medication with food to help protect your stomach. After your dose on 09/27/2018 stop the Aspirin. Diet: Resume your usual home diet but increase your intake of fluids and fiber while you are on narcotic pain medications to prevent constipation Driving: No, not until you are cleared to do so by your Orthopedic clinic. You should not drive while you are on narcotic pain medications as these can affect judgment and reaction time. Call your Surgeon with any questions. Medications: 1. The pain medication you are on can cause constipation so increase your intake of fluids and fiberwhile you are on them. You can also take an fgld-pyk-whaluvl stool softener, Colace or senna, to facilitate a bowel movement. 2. If you need a renewal on your narcotic pain medication, you need to give the Orthopedic clinic enough time to process your request. This can take up to three days, so plan accordingly. 3. Continue the Tylenol around the clock for the next 10 days, (09/07/2018). This can be effective incontrolling pain along with your other medications. Do not take more than 3,000 mg of Tylenol in 24 hours. 4. You have been discharged on a short acting narcotic, dilaudid. You will be on this medication fora limited period of time only. Take only enough pain medication to control your pain. As your pain lessens, taper down and off this medication as tolerated. 5. Do not take any non-steroidal anti-inflammatory medication such as ibuprofen, Advil, Aleve (NSAIDS). This medication may interfere with bone healing. 6. You are being discharged on gabapentin (Neurontin), a non-narcotic medication. This medication will help with your pain at night and allow you to sleep better. You will take this at night for the next 4 weeks. Your last dose will be on 09/25/18. Shower: Sponge bathe only. DO NOT submerge the dressing/incision. DO NOT get the area wet. Wound (Mepilex): 1. You do NOT have any external martín or sutures in place. Your sutures are internal and will be absorbed over time. 2. You have a Mepilex dressing in place. Do not lift the edge of the Mepilex dressing to inspect theincision, it will not re-adhere. Remove your operative dressing 7 days after your surgery (09/04/2018). When it is removed you can leave the incision open to air or cover it with a light dressing. 3. After the dressing is removed, 09/04/2018, the paper strips (steri-strips) should be kept in place. After 14 days you can remove the remaining steri-strips if they have not fallen off already. 4. If you have lots of drainage when you get home (and it is before 09/04/2018), remove the operativedressing and replace it with dry sterile gauze. Continue with daily dressing changes (and as needed)until the drainage stops, then remove the dressing and leave the incision open to air or lightly covered. Call your doctor at [phone] if: 1. You have a fever > 101.5 or experience chills ??? Increased discharge from the incision ??? Any redness or swelling around the incision ??? Increased pain or change in the pain that is not controlled by your pain medications Misc: Remember that ICE and elevation are very important to decrease swelling and control pain. You should use the ICE for 20-30 minutes at a time. FOLLOW UP APPOINTMENTS: 1. You will have follow up appointments at [facility] as indicated in Future Appointments and Orders. Future Appointments Date Time Provider Department Center 09/13/2018 10:40 AM Jen Guerrero PA [facility] [address] [place] [address] CLIN For questions/concerns weekdays, 8 am - 5 pm, call Dr. Segundo's office: [phone]. For evenings, weekends, holidays, call [phone] and request to speak with the Orthopaedic Resident special education case manager. General Instructions None Future Appointments and Orders Future Appointments and Orders Future Appointments Provider Department Dept Phone 09/13/2018 10:40 AM Jen Guerrero PA [facility] at [place] Arrive at: [facility] [employer] [phone] Primary Care Provider: Mellissa Garnett MD [phone] Discharge References/Attachments None documented in this encounter Discharge Instructions Patient InstructionsDaJazzy boyce, FITNESS MANAGEMENT DIRECTOR - 08/28/2018 3:32 PM EDT Activity: 1. Wear your sling at all times for 6 weeks after surgery. 2. You may move your elbow and wrist in front of your body to maintain range of motion. 3. Non-weight bearing right upper extremity. 4. No formal shoulder therapy, range of motion, or activity should be done for the first 6 weeks. Postoperative Plan: Post-op plan will be for sling immobilization of the shoulder for the next 6 weeks, coming out onlyfor gentle elbow, wrist, and hand range of motion. No formal shoulder therapy, range of motion, or activity should be done for the first 6 weeks. Anticoagulation: You have been discharged on Enteric-coated Aspirin 81 mg twice a day for 30 days. This medication will help decrease your chance of developing a blood clot. Take this medication with food to help protect your stomach. After your dose on 09/27/2018 stop the Aspirin. Diet: Resume your usual home diet but increase your intake of fluids and fiber while you are on narcotic pain medications to prevent constipation Driving: No, not until you are cleared to do so by your Orthopedic clinic. You should not drive while you are on narcotic pain medications as these can affect judgment and reaction time. Call your Surgeon with any questions. Medications: 1. The pain medication you are on can cause constipation so increase your intake of fluids and fiberwhile you are on them. You can also take an mmmt-xoz-siybuyz stool softener, Colace or senna, to facilitate a bowel movement. 2. If you need a renewal on your narcotic pain medication, you need to give the Orthopedic clinic enough time to process your request. This can take up to three days, so plan accordingly. 3. Continue the Tylenol around the clock for the next 10 days, (09/07/2018). This can be effective incontrolling pain along with your other medications. Do not take more than 3,000 mg of Tylenol in 24 hours. 4. You have been discharged on a short acting narcotic, dilaudid. You will be on this medication fora limited period of time only. Take only enough pain medication to control your pain. As your pain lessens, taper down and off this medication as tolerated. 5. Do not take any non-steroidal anti-inflammatory medication such as ibuprofen, Advil, Aleve (NSAIDS). This medication may interfere with bone healing. 6. You are being discharged on gabapentin (Neurontin), a non-narcotic medication. This medication will help with your pain at night and allow you to sleep better. You will take this at night for the next 4 weeks. Your last dose will be on 09/25/18. Shower: Sponge bathe only. DO NOT submerge the dressing/incision. DO NOT get the area wet. Wound (Mepilex): 1. You do NOT have any external martín or sutures in place. Your sutures are internal and will be absorbed over time. 2. You have a Mepilex dressing in place. Do not lift the edge of the Mepilex dressing to inspect theincision, it will not re-adhere. Remove your operative dressing 7 days after your surgery (09/04/2018). When it is removed you can leave the incision open to air or cover it with a light dressing. 3. After the dressing is removed, 09/04/2018, the paper strips (steri-strips) should be kept in place. After 14 days you can remove the remaining steri-strips if they have not fallen off already. 4. If you have lots of drainage when you get home (and it is before 09/04/2018), remove the operativedressing and replace it with dry sterile gauze. Continue with daily dressing changes (and as needed)until the drainage stops, then remove the dressing and leave the incision open to air or lightly covered. Call your doctor at [phone] if: 1. You have a fever > 101.5 or experience chills ??? Increased discharge from the incision ??? Any redness or swelling around the incision ??? Increased pain or change in the pain that is not controlled by your pain medications Misc: Remember that ICE and elevation are very important to decrease swelling and control pain. You should use the ICE for 20-30 minutes at a time. FOLLOW UP APPOINTMENTS: 1. You will have follow up appointments at [facility] as indicated in Future Appointments and Orders. Future Appointments Date Time Provider Department Center 09/13/2018 10:40 AM Jen Guerrero PA [facility] [place] CL[facility] For questions/concerns weekdays, 8 am - 5 pm, call Dr. Segundo's office: [phone]. For evenings, weekends, holidays, call [phone] and request to speak with the Orthopaedic Resident special education case manager. documented in this encounter Medications at Time of Discharge Medication Sig Dispensed Refills Start Date End Date mv-mn/folic Take by mouth. 0 acid/calcium/vit K (WOMEN'S 50 PLUS MULTIVITAMIN ORAL) citalopram (CELEXA) 20 Take 20 mg by mouth 0 mg Tablet daily. acetaminophen 500 mg Take 2 capsules by 0 019 09/09/2018 Capsule mouth every 8 hours for 10 days. aspirin 81 mg Tablet, Take 1 tablet by 60 tablet 0 08/31/19 19 09/29/2018 Delayed Release (E.C.) mouth 2 times daily for 30 days. gabapentin (NEURONTIN) Take 1 capsule by 28 capsule 0 201809/25/2018 300 mg Capsule mouth nightly for 26 days. senna-docusate Take 2 tablets by 0 08/30/2018 (PERICOLACE) 8.6-50 mg mouth 2 times daily Tablet as needed for Constipation for up to 30 days. polyethylene glycol Take 17 g by mouth 2 0 201809/29/2018 (MIRALAX) 17 gram/dose times daily as needed Powder for up to 30 days. HYDROmorphone Take 1-2 tablets by 35 tablet 0 08/30/2018 (DILAUDID) 2 mg Tablet mouth every 4 hours as needed for Pain. calcium carbonate Take 1 tablet by 0 0 10/11/2018 (TUMS) 200 mg calcium mouth daily. (500 mg) Tablet, Chewable Cholecalciferol, Take 5,000 Units by 0 10/11/2018 Vitamin D3, (VITAMIN D) mouth daily. 1,000 unit Cap documented as of this encounter Progress Notes Lexie Gonzales RN - 08/30/2018 4:02 PM EDT Patient discharge to home without services per MD order. Patient A&Ox4, HRR, lungs clear, no nausea, vomiting, SOB or chest pain at time of discharge. Positive bowel sounds, last BM 08/27. Voiding clear yellow urine. Patient ambulating independently at this time. Pain well controlled with tylenol and dilaudid PRN. All LDAs removed, all belongings home with patient. Prescriptions given to patient, all d/c instructions reviewed, all questions answered. Please see flow sheet for full assessment. Adriana Sorensen MD - 08/30/2018 6:57 AM EDT Orthopaedic Surgery Progress Note SURGERY/ISSUE: R RTSA ATTENDING: Dr. Segundo Patient Active Problem List Diagnosis Code ??? Lumbar radicular pain M54.16 ??? Bladder cancer C67.9 ??? History of bladder cancer Z85.51 ??? Chronic pain in right shoulder M25.511, G89.29 ??? Shoulder arthritis M19.019 ??? s/p R RTSA (Dr. Segundo), 08/28/18 Z96.611 Interval History: No acute events overnight, afebrile. Pain controlled, block completely worn off. Urinating on own volition, tolerating PO intake, passing flatus. PT recommending discharge home. Drainremoved this morning without issue. Temp: [36.4 ??C (97.5 ??F)-36.9 ??C (98.5 ??F)] Heart Rate: [79-84] Resp: [16-22] BP: (94-127)/(61-66) SpO2: [89 %-95 %] Heart Rate from SpO2: [78 bpm-95 bpm] I/O last 3 completed shifts: In: 1605 [P.O.:480; I.V.:1125] Out: 2360 [Urine:2225; Other:135] No intake/output data recorded. PE: Gen- AOx3, NAD HEENT- NCAT CV- RRR checked peripherally Pulm- No incr WOB RUE: Dressing C/D/I Sensation grossly intact in R/U/M/LACN/Ax distributions, paresthesias throughout RUE in nonanatomic distribution consistent with resolving block Firing EPL/FPL/IO 2+RP Finger WWP Last 3 wbc, hgb, hct plt Recent Labs 08/30/18 0358 08/29/18 0431 08/16/18 1122 WBC 8.7 11.0* 7.7 HGB 11.2* 11.5* 13.3 HCT 34.9* 35.2* 40.1 PLATELET 178 193 214 Last 3 Coags No results for input(s): PT, INR, PTT in the last 168 hours. Last CRP, SEDRATE Recent Labs 08/16/18 1122 CRP 0.5 SEDRATE 8 Imaging: XR R shoulder: Interval placement of R reverse total shoulder arthroplasty without radiographic complication identified Drain: Removed 08/30 A/P: 73 y.o. female now POD #2 s/p R RTSA for rotator cuff tear arthropathy. No acute events in the postoperative period, pain controlled. Drain removed this morning, 10 holes counted. PT recommending discharge to home, anticipate this happening later this afternoon. Activity: NWB RUE Closure: Resorbable sutures Dressing: Mepilex x 7 days Drain: Removed 08/30 Anticoagulation: ASA 81mg BID for 30 days Antibiotics: Ancef x 24 hours Consults: PT/OT Dispo: Per PT Follow-up: As scheduled ADRIANA SORENSEN MD Future Appointments Date Time Provider Department Center 09/13/2018 10:40 AM Jen Guerrero PA [facility] [address] [place] [address] CLIN [place] Velia Duran RN - 08/29/2018 11:47 AM EDT Office of Care Management/Discharge Planning Note Care reviewed with primary medical team (Service:Ortho) and discussed in interdisciplinary rounds. Medical record reviewed. Patient s/p total shoulder replacement. She is currently lying in bed, rodney drain on right arm and in sling. PT currently in seeing patient and will determine discharge needs. She had prior problem with shoulder s/p fall in 2018 and underwent rotator cuff repair which failed.She understands what it is to rehab her shoulder, has support from , 2 daughers (one is a RN), and wants to go home with [facility] services. [facility] routed and pended. Per discussion at rounds, patient still has rodney drain in which needs to be removed. It was emptied this am , currently less then a quarter in drain right now. She will be on asa for 30 days and is currently NWB on shoulder. Care Management will continue to monitor progress, follow for continuity of care, and assist with discharge planning. Derrick Engineer: Velia Duran Pager [phone] Velia Duran RN - 08/29/2018 10:53 AM EDT Office of Care Management Initial Assessment Velia Duran RN reviewed record and discussed patient with Care Team. Source of Information: patient Introduced self/reviewed role; services accepted. Reason for Hospitalization: Reason for Admission as Stated by Patient: my shoulder Past Medical History: Diagnosis Date ??? Bladder cancer patient states ??? Cancer bladder ??? Chronic pain shoulder ??? Delayed emergence from anesthesia slow to wake ??? Motion sickness on a cruise ??? Post-operative nausea and vomiting when had bladder surgery-OK with hip & shoulder Hospitalizations Within the Past 30 Days: no Anticipated Length Of Stay (If known): Expected Length of Hospitalization: one day could be here 3 days or greater per patient after discussion with surgeon this am. Current Decision-Making Capacity: independent, aware of diagnosis and plan of care. Advance Care Planning: has advance directive, indicates and sister speakfor her when she is unable. to provide copy. Current Coping/Education/Information Needs: Patient states she had a complete should replacement. Understands diagnosis and plan of care. Current Functional Ability: right arm in sling for 6 weeks and then be re- evaluated. Has not been upwith Physcial therapy but is scheduled today. Functional Status Prior to Admission: She explained prior to replacement she had a fall on June and was s/p rotator cuff repair on Nov 2017. The rotator cuff repair failed and she then needed shoulder replacement. Home Environment: Has a ranch with basement. 13 steps to get to basement. Has rails on right side. Also there are 5 steps to get inside house with rails on both sides. Social & Family Supports/Community Resources: ,daughter, sister , niece , other niece Trenton who is a RN. Behavioral Health History: denies Substance Use/Abuse: denies DAST 10 In the past year have you used an illegal drug or used a prescription medication for non-medical reaons?: No In the past year have you used opioids (oxycodone, Vicodin, heroin, fentanyl, buprenorphine, methadone, etc.) for non-medical reasons?: No AUDIT In the past year have you had 4 or more drinks a day containing alcohol?: No Other Pertinent/Service Specific Information: none Health/Prescription Coverage: Primary Insurance: MEDICARE Secondary Insurance: [employer] Prescription Coverage: above Preferred Pharmacy: [facility] Other: no Primary Care Provider: Mellissa Garnett MD [phone] Patient/Caregiver Goals of Treatment: go home Potential Needs for Transition of Care: Rehab/SNF: No Home Health: The patient/community health program representative has been provided a list of Home Health Agencies/DME vendors which serve their preferred geographic area. A letter describing our affiliations was reviewed with them and theywere educated about their right to choose where referrals are placed. Patient requests referral to [facility] Expected date of discharge: 2 days. Referral routed to the [facility] for matching with agency/vendor and to provide any required information. DME: no Dialysis: no Community Resources: no Transportation: private car, or daughter Other: no Anticipated Barriers to Discharge/Special Considerations: none Assessment: patient with history of fall and rotator cuff repair which failed, now s/p total shoulder replacement Plan: DC home with VNA services with 24/7 care from and 2 daughters.One of daughters is a RN. A member of the Care Management team will continue to monitor progress, follow for continuity of care and assist with transition of care planning. Velia Duran RN Pager: [phone] Adriana Sorensen MD - 08/29/2018 6:39 AM EDT Orthopaedic Surgery Progress Note SURGERY/ISSUE: R RTSA ATTENDING: Dr. Segundo Patient Active Problem List Diagnosis Code ??? Lumbar radicular pain M54.16 ??? Bladder cancer C67.9 ??? History of bladder cancer Z85.51 ??? Chronic pain in right shoulder M25.511, G89.29 ??? Shoulder arthritis M19.019 ??? s/p R RTSA (Dr. Segundo), 08/28/18 Z96.611 Interval History: No acute events overnight, afebrile. Pain well-controlled, block remains partiallyin effect. Urinating on own volition, passing flatus, tolerating PO intake. Has mobilized to bathroom overnight. Temp: [36.4 ??C (97.5 ??F)-37.1 ??C (98.8 ??F)] Heart Rate: [67-100] Resp: [12-] BP: (102-149)/(57-83) SpO2: [90 %-100 %] Heart Rate from SpO2: [75 bpm-107 bpm] I/O last 3 completed shifts: In: 1365 [P.O.:240; I.V.:1125] Out: 1225 [Urine:1175; Other:50] I/O this shift: In: - Out: 1095 [Urine:1050; Other:45] PE: Gen- AOx3, NAD HEENT- NCAT CV- RRR checked peripherally Pulm- No incr WOB RUE: Dressing C/D/I Drain intact and holding suction Sensation grossly intact in R/U/M/LACN/Ax distributions, paresthesias throughout RUE in nonanatomic distribution consistent with resolving block Firing EPL/FPL/IO 2+RP Finger WWP Last 3 wbc, hgb, hct plt Recent Labs 08/29/18 0431 08/16/18 1122 WBC 11.0* 7.7 HGB 11.5* 13.3 HCT 35.2* 40.1 PLATELET 193 214 Last 3 Coags No results for input(s): PT, INR, PTT in the last 168 hours. Last CRP, SEDRATE Recent Labs 08/16/18 1122 CRP 0.5 SEDRATE 8 Imaging: XR R shoulder: Interval placement of R reverse total shoulder arthroplasty without radiographic complication identified Drain: 90 cc overnight A/P: 73 y.o. female now POD #1 s/p R RTSA for rotator cuff tear arthropathy. No acute events in the postoperative period, pain controlled. Drain to remain in through this morning, can remove if patientleaves today. Will plan for disposition per PT/OT recommendations. Activity: NWB RUE Closure: Resorbable sutures Dressing: Mepilex x 7 days Drain: Remove when <30 cc/shift Anticoagulation: ASA 81mg BID for 30 days Antibiotics: Ancef x 24 hours Consults: PT/OT Dispo: Per PT Follow-up: As scheduled ADRIANA SORENSEN MD Future Appointments Date Time Provider Department Center 09/13/2018 10:40 AM Jen Guerrero PA [facility] [address] CLIN Associated attestation - Amanda Segundo MD - 08/29/2018 8:11 AM EDT Attending addendum: The preceeding portion of this note was written by Dr. Sorensen. I personally saw and evaluated the patient at the bedside and I agree with the assessment and plan documented above. Amanda Segundo M.D., M.S. Photogrammetric Engineer of Orthopaedic Surgery Shoulder, Elbow, and Sports Medicine Department of Orthopaedic Surgery [place], [place] [address] Shaunna Mccray RN - 08/28/2018 5:15 PM EDT Patient arrived to floor via bed. Patient A&O x 3, lungs clear, heart rate regular. Patient has a dressing to right shoulder noted to be clean dry and intact. RODNEY drain intact. Patient states their pain level is 0/10. Patient denies chest pain and shortness of breath. Pt does have some numbness to RUE. + radial pulse. Pt also with some drooping of her right eye. States the numbness in face has gone away. Patient oriented to room and call ratna. RN will monitor patient. Rosalia Biggs RN - 08/28/2018 4:40 PM EDT Pt denies shoulder or arm pain and some numbness remaining in arm but stronger in hand with some tingling per pt. + radial pulse. Right eye lid noted to be drooping, slight redness and scratchy initially but scratchiness resolved now and Dr. Lockhart here to assess and will continue to monitor. Pt sleepy on arrival and took several hours to awaken. Pt met phase 1 recovery at 1615. in to visit and will meet in room. 1645- handoff report given to RADHA kemp on 3W. Pt is awaiting transportation tofloor. Benigno Lockhart MD - 08/28/2018 4:14 PM EDT ORTHOPAEDIC SURGERY INPATIENT PROGRESS NOTE Patient Name: Julissa Etienne Age: 73 y.o. Surgery/Issue: Right reverse total shoulder arthoplasty Attending: Dr. Segundo Date of surgery: 08/28/2018 SUBJECTIVE / INTERVAL HISTORY: Denies chest pain, shortness of breath, nausea. Pain well-controlled. Interscalene nerve block stillin effect with decreased sensation in the RUE. No major complaints. Has been resting comfortably. FOCUSED REVIEW OF SYSTEMS: as above. Active Hospital Problems Diagnosis ??? s/p R RTSA (Dr. Segundo), 08/28/18 ??? Shoulder arthritis Resolved Hospital Problems No resolved problems to display. Active Non-Hospital Problems Diagnosis ??? Chronic pain in right shoulder ??? History of bladder cancer ??? Bladder cancer ??? Lumbar radicular pain MEDICATIONS: ??? sodium chloride 0.9% infusion ??? ceFAZolin (ANCEF) 1g in dextrose 5% 50mL ??? HYDROmorphone (DILAUDID) tablet 2 mg OR HYDROmorphone (DILAUDID) tablet 4 mg OR HYDROmorphone (DILAUDID) tablet 6 mg ??? acetaminophen (TYLENOL) tablet 1,000 mg ??? ketorolac (TORADOL) injection 15 mg ??? naloxone (NARCAN) injection 0.04 mg ??? promethazine (PHENERGAN) injection 6.25 mg ??? prochlorperazine (COMPAZINE) injection 5 mg ??? HYDROmorphone (DILAUDID) injection 0.2-0.4 mg ??? bacitracin injection ??? sodium chloride 0.9% 75 mL/hr (08/28/18 1334) OBJECTIVE: Temp: [36.4 ??C (97.5 ??F)-36.8 ??C (98.2 ??F)] Heart Rate: [67-93] Resp: [12-] BP: (132-146)/(69-83) Intake/Output Summary (Last 24 hours) at 08/28/2018 1614 Last data filed at 08/28/2018 1312 Gross per 24 hour Intake 700 ml Output -- Net 700 ml There is no height or weight on file to calculate BMI. PE: General: NAD, alert, arousable, responsive to questions. R eye is somewhat drooped in appearance to Left. CV: RRR assessed peripherally Resp: breathing comfortably on 2L NC Right Upper Extremity: In shoulder sling. Dressing c/d/i. RODNEY drain with serosanguinous output. Sensation decreased in ax/m/r/u distributions. Motor decreased to wrist/finger flexion and extension. Brisk capillary refill distally and fingertips warm/well-perfused. 2+ Radial pulse Lab Results Component Value Date WBC 7.7 08/16/2018 HGB 13.3 08/16/2018 HCT 40.1 08/16/2018 MCV 92.4 08/16/2018 PLATELET 214 08/16/2018 IMAGING: XR right shoulder (08/28/2018) No evidence of intra-op fractures. The humerus is reduced. ASSESSMENT / PLAN: 73 y.o. female Day of Surgery s/p right reverse total shoulder arthoplasty. Stable. Vitals within normal limits. Pre-op block still in effect with RUE sensation decreased and currently weak distal motor function. Has been improving in the post op period. RODNEY drain holding suction. Plan to work with PT/OT tomorrow and determine dispo. R eye does appear drooped relative to L eye, CN otherwise intact, sclera is a bit erythematous. Has reported history of dry eye and takes drops. No other concerning clinical signs. Activity: NWB RUE Closure: Resorbable sutures Dressing: Mepilex x 7 days Drain: Remove when <30 cc/shift Anticoagulation: ASA 81mg BID for 30 days Antibiotics: Ancef x 24 hours Consults: PT/OT Dispo: Per PT Follow-up: As scheduled Benigno Lockhart MD 08/28/2018 Future Appointments Date Time Provider Department Center 09/13/2018 10:40 AM Jen Guerrero PA [address] CLIN documented in this encounter H&P Notes Adriana Sorensen MD - 08/28/2018 10:36 AM EDT The patient's history and physical exam have been reviewed and completed. There has been no intervalchange from that of the pre-operative history and physical exam done within the last 30 days. Associated attestation - Amanda Segundo MD - 08/28/2018 1:32 PM EDT Attending addendum: The preceeding portion of this note was written by Dr. Sorensen. I personally saw and evaluated the patient at the bedside and I agree with the assessment and plan documented above. Amanda Segundo M.D., M.S. Photogrammetric Engineer of Orthopaedic Surgery Shoulder, Elbow, and Sports Medicine Department of Orthopaedic Surgery [place], [place] [address] documented in this encounter Miscellaneous Notes Plan of Care - Meche Reynolds Bao, OT - 08/30/2018 1:33 PM EDT Occupational Therapy Evaluation Patient profile: Julissa Etienne is a 73 [address] of Dr[address] Amanda Segundo MD, admitted on 08/28/2018 for R RTSA for rotator cuff tear arthropathy now POD #2. Social History: Patient lives with her ; works days. Sister, niece and daughter will be able to assist at home; daughter is an RN. Home Setup: 1 level home with 5 ADEEL and a tub/shower. DME: cane, walker. Baseline ADL/Mobility: Pt is fully independent at baseline. Precautions/Special Considerations: NWB RUE in sling at all times; falls Subjective: I've been having to use my left hand for a while. Re: for ADLs Objective: Seen today for OT evaluation. Cognitive Status/Behavior: ?? Behavior / Mood: alert and cooperative ?? Alert and oriented to: person, place, time and situation ?? Follows commands: multi step and 100% of the time ?? Attention: WFL ?? Safety awareness: WFL ?? Demonstrated good awareness and compliance with RUE precautions. Vision & Perception: ?? corrective lenses for reading Communication: WFL Range of motion, strength, coordination: Hand dominance: right LUE WFL. RUE AROM restricted by sling. Pt using R hand to stabilize ADL item (ie: toothpaste/toothbrush). Sensation: intact Activities of Daily Living: Self-feeding: independent. Grooming: Pt brushed her teeth and combed her hair independently standing at the sink. Dressing: Min A to don pants, underpants d/t difficulty hiking pant over R hip. Max A donning modified T-shirt that pt purchased prior to admission. Bathing: pt washed her UB with min A for RUE and back, SBA washing LB standing at sink Toileting: Transfer: independent Hygiene: independent Functional Mobility: Sit to stand: independent Ambulation: independent to/from bathroom Stand to sit: independent Balance: Sitting balance: independent Standing balance: independent Vitals: At Rest With Activity SpO2 92% 93% Heart Rate 90 74 Pain: 0/10 Skin: intact Education: family have been educated on Role of occupational therapy/rehabilitation, Transfers, ADL,Positioning, Safety, Precautions/Protocol, Activity pacing/Energy conservation, Balance, Recommendati ons and Discharge planning and verbalizes and demonstrates understanding. Patient status, treatment, and mobility recommendations discussed with nursing. Assessment: Pt has been seen for occupational therapy evaluation. Julissa Etienne presents with thefollowing performance skill deficits and client factors: decreased activity tolerance, decreased flexibility/ROM, decreased strength, precautions/bracing and RUE WB restrictions . These performance defi cits have led to activity limitations and participation restrictions in the following areas of occupation: dressing, bathing, toileting, home management and driving. Pt demonstrated the ability to perform her ADLs with min A for dressing and RUE bathing. Pt was receptive to instruction on compensatory strategies for her ADL routine to facilitate independence. Pt will have assist from family at home for self-care and higher level ADLs. Anticipate that pt will return home once medically ready. Do not anticipate further OT needs while hospitalized. Equipment needs at discharge: none Anticipated Discharge Disposition: (P) home with assist Other Recommendations: No other consults recommended at this time Total Evaluation Minutes, Occupational Therapy: (P) 38(evaluation and SCHM x 1) 2017 OT Evaluation Code Rationale: ?? Diagnosis & Pertinent Co-Morbidities affecting Plan of Care: see PMHx ?? Occupational Profile & Client History: Brief Expanded Extensive x ?? Assessment of Occupational Performance: 1-3 performance deficits 3-5 performance deficits 5 + performance deficits x ?? Clinical Decision Making: Low Moderate High x Clinical decision making of low complexity using standardized patient assessment instrument and measurable assessment of functional outcome. Pager: [phone] Meche Reynolds OT 08/30/2018 Occupational Therapy Rehabilitation Department Plan of Care - Marita Castro PT - 08/30/2018 9:38 AM EDT Physical Therapy Treatment Treatment Number PT: 2 Pertinent History of Current Problem: pt is s/p R reverse TSA (Ratna) 08/28/18 Precautions/Restrictions: fall, shoulder, weight bearing Precautions Comments: NWB RUE in sling at all times. No formal Shoulder PT Assessment: Pt seen for progression of functional mobility and ongoing assessment. Please see the flow sheet below for patient details and mobility. Pt demonstrated improved sensation, strength, balance, and tolerance to activity. Pt able to ambulate further distances with supervision progressing to in dependent with use of straight cane. Pt able to perform stairs with use of railing and CGA-supervision. Pt practiced bed mobility several times, however ultimately educated to sleep in recliner chair initially due to min A required for supine>sit transfer. Pt educated in wrist/hand and cervical therex with good understanding/demo/tolerance. Pt also educated and participate in sling management. Pt has currently met rehab goals and is safe for discharge home from mobility standpoint. Staff Communication/Mobility Recommendations: Ambulate 3x/day w/ SBA and cane OOB to chair for all meals or at least daily Anticipated Physical Therapy Frequency: monitor(safe for DC home ) Anticipated Equipment Needs at Discharge: (none) Anticipated Discharge Disposition: (S) home with assist Has Patient Cleared Physical Therapy? YES NO xxx Marita Castro, PT, DPT Pager: [phone] Inpatient Physical Therapy 08/30/18 0914 Rehab Evaluation Document Type therapy note (daily note) Total Evaluation Minutes, Physical Therapy 32 (x2 TEF) Patient Effort good Symptoms Noted During/After Treatment none General Information Patient Profile Review yes Referring Physician Ratna Patient/Family/Caregiver Comments/Observations I feel much better than yesterday but I want to go home tomorrow General Observations of Patient pt ambulating in hallway pre PT with OBSTETRICS GYN. Up in recliner chair post PT with all needs in reach, VSS on RA, UE supported on pillows, ice packs in place, provider present Pertinent History of Current Problem pt is s/p R reverse TSA (Ratna) 08/28/18 Hearing Precautions/Limitations WFL Precautions/Restrictions fall;shoulder;weight bearing Precautions Comments NWB RUE in sling at all times. No formal Shoulder PT Treatment Number PT 2 Living Environment Patient population Adult Vital Signs Heart Rate (!) 105 (94 at rest incr to 105 with mobility) SpO2 94 % O2 Device RA Cognitive Assessment/Intervention Additional Documentation Cognitive Assessment Interventions (Group) Cognitive Assessment Interventions Behavior/Mood Observations (Cognitive) WNL/WFL;behavior appropriate to situation;alert;cooperative Orientation Status (Cognitive) oriented x 4 Attention (Cognitive) WNL/WFL Pain Scale/Rating Pain Assessment Scale Numbers (Numeric Rating Pain Scale) Pain Level 4 Pain Assessment Numbers/Faces/Word Pain Body Location - Side Right Pain Body Location - Orientation generalized Pain Body Location shoulder Mobility Assessment/Training Additional Documentation Bed Mobility Assessment/Treatment (Group);Gait Assessment/Treatment (Group);Stairs Assessment/Treatment (Group);Transfer Assessment/Treatment (Group) Bed Mobility Assessment/Treatment Scoot/Bridge [facility] [facility] (Bed Mobility) conditional independence Xcjdtx-wy-Bik [facility] (Bed Mobility) conditional independence Euo-ow-Obylke [facility] (Bed Mobility) minimum assist (75% patient effort) Safety Issues (Bed Mobility) decreased use of arms for pushing/pulling Impairments (Bed Mobility) strength decreased;coordination impaired Comment (Bed Mobility) able to roll, reposition and sit>supine x2 without assist. Trialed 2 different techniques for sup> sit but still requires min A due to decr strength. Cond ind if has bed rail. Educated to sleep in recliner chair initially or have assist OOB. Transfer Assessment/Treatment Bed-Chair [facility] (Transfers) supervision required Chair-Bed [facility] (Transfers) supervision required Pfv-Jhwyb-Gmk Assistive Device (Transfers) straight cane [facility] [facility] (Sit-Stand Transfers) conditional independence [facility] [facility] (Stand-Sit Transfers) conditional independence [id number]-[id number] Assistive Device (Transfers) straight cane Maintain Weight Bearing Status (Transfers) able to maintain weight bearing status Safety Issues (Transfers) step length decreased Impairments (Transfers) balance impaired;pain;strength decreased Comment (Transfers) no overt LOB, transferred chair<>bed Gait Assessment/Treatment [facility] (Gait) conditional independence Assistive Device (Gait) straight cane Distance in Feet (Gait) 300' Gait Pattern Analysis swing-through gait Deviations (Gait) brittanie decreased;step length decreased;stride length decreased Maintain Weight Bearing Status (Gait) able to maintain weight bearing status Impairments (Gait) balance impaired;pain;strength decreased Comment (Gait) no overt LOB, able to ambulate short distance in room without AD but incr steadiness with cane for longer distance ambulation Stairs Assessment/Treatment Number of Stairs (Stairs) 3x2 Handrail Location (Stairs) left side (ascending) [facility] (Stairs) contact guard assist;supervision required (progressing) Assistive Device (Stairs) (none) Technique (Stairs) [id number] (ascending);[id number] (descending) Maintain Weight Bearing Status (Stairs) able to maintain weight bearing status Impairments (Stairs) balance impaired;pain;strength decreased Comment (Stairs) no overt LOB, CGA on first trial progressing to supervision on second trial. Use ofsingle railing without AD AM-PAC Basic Mobility AM-[facility] Mobility Completed? Yes Turning from your back to your side while in a flat bed w/o using handrails? 4 - None Standing up from a chair using your arms (e.g. wheelchair, or bedside commode)? 4 - None Moving from lying on your back to sitting on the side of a flat bed w/o using bedrails? 3 - A Little Moving to and from a bed to a chair (including a wheelchair) 4 - None To walk in hospital room? 4 - None Climbing 3-5 steps with a railing?* 3 - A Little AM-[facility] Basic Mobility Raw Score 22 Basic Mobility Standardized T-Scale Score 53.28 Basic Mobility CMS 0-100% 20.91 AM-[facility] Basic Mobility CMS Modifier CJ Motor Skills/Interventions Additional Documentation Balance Skills Training (Group);Therapeutic Exercise (Group) Balance Skills Training Training Strategies (Balance) cane, supervision-independent Sitting Balance: Static good balance Sitting Balance: Dynamic good balance Kyn-gk-Swhgj Balance good balance Standing Balance: Static good balance Standing Balance: Dynamic fair balance Therapeutic Exercise Comment (Therapeutic Exercise) educated in wrist/hand AROM flex/ext/circles/ deviation/squeeze. Cervical ROM flex/ext/SB/rotation Orthotics/Prosthetics Additional Documentation Orthosis Management/Training (Group) Orthosis Location/Type Location/Type (Orthosis) upper extremity Upper Extremity (Orthosis) Right:;shoulder orthosis;shoulder immobilizer Orthosis Management/Training Fabrication Detail (Orthosis) khoa Indications (Orthosis) immobilize, protect/position healing structures;restrict motion Indications Comment (Comment) reverse TSA Skills Training (Orthosis) doffing orthosis;donning orthosis;orthosis maintenance;restrictions/precautions Skills Training Comment (Orthosis) undoing/redoing velcro, undoing/redoing clasp, proper fit, pillowsupports when unclasped Wear Schedule (Orthosis) 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 Level supervision required Bed Mobility Goal, Date Goal Reviewed 08/30/18 Bed Mobility Goal, Outcome Achieved goal partially met (can sleep in chair on DC) Gait Training Goal Gait Training Goal, Date Established 08/29/18 Gait Training Goal, Time to Achieve by discharge Gait Training Goal, [facility] Level conditional independence Gait Training Goal, Assist Device cane, straight (or LRAD) Gait Training Goal, Distance to Achieve 150' Gait Training Goal, Additional Goal 3-5 steps w/ railing, CGA Gait Training Goal, Date Goal Reviewed 08/30/18 Gait Training Goal, Outcome goal met Transfer Training Goal Transfer Training Goal, Date Established 08/29/18 Transfer Training Goal, Time to Achieve by discharge Transfer Training Goal, Activity Type all transfers Transfer Train Goal, [facility] Level conditional independence Transfer Training Goal, Assist Device cane, straight (or LRAD) Transfer Train Goal, Date Goal Reviewed 08/30/18 Transfer Training Goal, Outcome goal met Physical Therapy Goal PT Goal, Date Established 08/29/18 PT Goal, Time to Achieve by discharge PT Goal, Activity Type independent in HEP PT Goal, Additional Goal verbalize ability to instruct caregiver in sling management PT Goal, Date Goal Reviewed 08/30/18 PT Goal, Outcome goal met Clinical Impression Therapy Frequency monitor (safe for DC home ) Anticipated Equipment Needs at Discharge (none) Anticipated Discharge Disposition home with assist Plan of Care - Angelica Cornejo RN - 08/30/2018 3:51 AM EDT Problem: Patient Care Overview Goal: Plan of Care Review Outcome: Ongoing (Interventions Implemented as Appropriate) 08/30/18 3957 Coping/Psychosocial Plan Of Care Reviewed With patient Plan of Care Review Progress improving OUTCOME EVALUATION NOTE: OUTCOME SUMMARY: Patient progressing towards d/c goals appropriately at this time. Patient A&O x 3, lungs clear, heart rate regular. Last BM was on 08/27. Patient voiding adequately. Patient has a dressing to right shoulder, noted to be clean dry and intact. Patients pain adequately controlled, see MAR for medications given. Patient denies chest pain, shortness of breath, numbness or tingling. Patient placed on 1LNC while asleep to keep sats above 90%. Will continue to monitor and help patient reach d/c goals. PLAN MOVING FORWARD: Pain control Mobilize D/c planning INDIVIDUALIZED FALL PREVENTION: Patient is currently a high risk to Fall. Patient educated on bed/chair alarm, demonstrates proper use of call segundo and verbalizes understanding of fall preventions implemented. Patient-specific fall risk factors per assessment: [current deficits]: IV sites, Pain, Medications, Hospital Environment. Assistance [level of assistance required for transfers and ambulation]: x1 assist Supervision [direct monitoring required during toileting and ADLs]: x1 assistance with ADL's Surveillance [continuous indirect monitoring]: Giovana, Purposeful Rounding, Bedside Report Patient-specific fall prevention interventions for sensory deficits provided, if applicable: [X] N/A CPG GOAL OUTCOME EVALUATION: Goal: Fall Prevention-Safe Patient Handling Outcome: Ongoing (Interventions Implemented as Appropriate) 08/29/18199908/30/18346 Daily Care Interventions Self-Care Promotion -- BADL personal objects within reach;independence encouraged Yap Fall Risk History of Falling 25 -- Secondary Diagnosis 15 -- Ambulatory Aids 0 -- Intravenous Therapy/Heparin/Saline Lock 20 -- Gait/Transferring 10 -- Mental Status 0 -- Score 70 -- OTHER Yap Fall Risk High -- Restraint Interventions Safety Promotion/Fall Prevention activity supervised;nonskid shoes/slippers when out of bed;safety round/check completed -- Positioning Body Position supine, head elevated -- Activity Activity Type activity adjusted per tolerance -- Activity Assistance Provided assistance, stand-by -- Goal: Infection Control Outcome: Ongoing (Interventions Implemented as Appropriate) 08/29/181999 Safety Interventions Isolation Precautions standard precautions maintained Infection Prevention rest/sleep promoted;barrier precautions utilized Coping Strategies Supportive Measures active listening utilized;counseling provided;decision- making supported;self-care encouraged;self-reflection promoted;self- responsibility promoted;verbalization of feelings encouraged Goal: Discharge Needs Assessment Outcome: Ongoing (Interventions Implemented as Appropriate) 08/30/18346 Discharge Needs Assessment Concerns To Be Addressed no discharge needs identified Readmission Within The Last 30 Days no previous admission in last 30 days Discharge Disposition still a patient Living Environment Transportation Available family or friend will provide Goal: Interdisciplinary Rounds/Family Conf Outcome: Ongoing (Interventions Implemented as Appropriate) 08/30/18 0347 Interdisciplinary Rounds/Family Conf Participants nursing;patient Problem: Perioperative Period (Adult) Goal: Signs and Symptoms of Listed Potential Problems Will be Absent, Minimized or Managed (Perioperative Period) Signs and symptoms of listed potential problems will be absent, minimized or managed by discharge/transition of care (reference Perioperative Period (Adult) CPG). Outcome: Ongoing (Interventions Implemented as Appropriate) 08/30/18 0347 Perioperative Period Problems Assessed (Perioperative Period) situational response;pain Problems Present (Perioperative Period) situational response;pain Plan of Care - Lexie Gonzales RN - 08/29/2018 4:08 PM EDT Problem: Patient Care Overview Goal: Plan of Care Review Outcome: Ongoing (Interventions Implemented as Appropriate) 08/29/18 1554 Coping/Psychosocial Plan Of Care Reviewed With patient Plan of Care Review Progress progress toward functional goals as expected OUTCOME EVALUATION NOTE: OUTCOME SUMMARY: Patient A&O with VSS throughout shift. Gunslinger in place to right shoulder, silver mepilex CDI, RODNEY drain with small amount of sanguinous drainage. New IV placed by IV team this morning after first one was burning. Still describes numbness to right fingers, +pulse, can wiggle fingers. Ice PRN. Worked with PT/OT and did well, but patient feels more comfortable staying at least one more night so someone is home to care for her when she discharges. Voiding adequately in bathroom, eating well. PRN dilaudid given with adequate relief, see MAR. PLAN MOVING FORWARD: Pain control, encourage mobility, discharge planning INDIVIDUALIZED FALL PREVENTION INTERVENTIONS: Patient-specific fall risk factors per assessment: [current deficits]: NWB to RUE, pain and narcotics, hx falls Assistance [level of assistance required for transfers and ambulation]: Standby assist in room and thao Supervision [direct monitoring required during toileting and ADLs]: Set up, independent Surveillance [continuous indirect monitoring]: giovana Patient-specific fall prevention interventions for sensory deficits provided, if applicable: [X] Yes CPG GOAL OUTCOME EVALUATION: Goal: Fall Prevention-Safe Patient Handling Outcome: Ongoing (Interventions Implemented as Appropriate) 08/29/18 0900 Yap Fall Risk History of Falling 25 Secondary Diagnosis 15 Ambulatory Aids 0 Intravenous Therapy/Heparin/Saline Lock 20 Gait/Transferring 10 Mental Status 0 Score 70 OTHER Yap Fall Risk High Restraint Interventions Safety Promotion/Fall Prevention activity supervised;fall prevention program maintained;muscle strengthening facilitated;nonskid shoes/slippers when out of bed;safety round/check completed Positioning Body Position independent;supine, legs elevated Activity Activity Type activity adjusted per tolerance;activity encouraged Activity Assistance Provided assistance, stand-by Assistive Device Utilized none Goal: Infection Control Outcome: Ongoing (Interventions Implemented as Appropriate) 08/29/18 0900 Safety Interventions Isolation Precautions standard precautions maintained Infection Prevention rest/sleep promoted;single patient room provided;environmental surveillance performed Coping Strategies Supportive Measures active listening utilized;relaxation techniques promoted;problem solving facilitated;self-care encouraged Goal: Discharge Needs Assessment Outcome: Ongoing (Interventions Implemented as Appropriate) 08/29/18 1554 Discharge Needs Assessment Readmission Within The Last 30 Days no previous admission in last 30 days Discharge Disposition home or self-care Activity/Self Care Review of Systems Equipment Currently Used at Home none Living Environment Transportation Available family or friend will provide Goal: Interdisciplinary Rounds/Family Conf Outcome: Ongoing (Interventions Implemented as Appropriate) 08/29/18 1554 Interdisciplinary Rounds/Family Conf Participants pharmacy;family;patient;shelter case manager;nursing;physician;advanced practice nurse Plan of Care - Lauren Russell OT - 08/29/2018 2:57 PM EDT 08/29/18 4654 Rehab Evaluation Document Type contact Evaluation Not Performed Comment Orders received, chart reviewed, evaluation to follow. Lauren Russell OT/L Pager [phone] Occupational Therapist Rehabilitation Department Plan of Care - Marita Castro PT - 08/29/2018 12:17 PM EDT Physical Therapy Evaluation Pertinent History of Current Problem: pt is s/p R reverse TSA (Ratna) 08/28/18 Precautions/Restrictions: fall, shoulder, weight bearing Precautions Comments: NWB RUE in sling at all times. No formal Shoulder PT Assessment: Pt presents to initial PT evaluation with physical impairments of pain, decr ROM, decr strength, decr sensation, decr balance, lightheadedness, shoulder precautions, NWB precautions, and decr activity tolerance, which are currently contributing to functional limitations of compared to typical independent baseline. Please see the flow sheet below for patient objective details and mobility.Pt motivated, pleasant, and eager to participate in therapy evaluation/mobility. Pt initially requiring min A for bed mobility, however able to complete transfers and ambulation with CGA using straightcane. Pt with incr lightheadedness and dizziness noted throughout mobility, however VSS. Pt instructed in sling management and therex program with good understanding. Pt sling and abduction pillow adjusted for improved fit and comfort. Anticipate pt will progress well during hospital course and be able to return home with assistance from family. Pt would benefit from ongoing physical therapy intervent ions during hospital course to promote safety and independence with mobility. Staff Communication/Mobility Recommendations: Ambulate 3x/day w/ SBA/CGA and cane OOB to chair for all meals or at least daily Anticipated Physical Therapy Frequency: (S) 1-3 more visits Anticipated Equipment Needs at Discharge: (none) Anticipated Discharge Disposition: (S) home with assist Has Patient Cleared Physical Therapy? YES NO xxx Marita Castro, PT, DPT Pager: [phone] Inpatient Physical Therapy 2017 PT Evaluation Code Rationale: ?? Diagnosis & Pertinent Co-Morbidities, personal factors, and present illness affecting Plan ofCare: Patient Active Problem List Diagnosis Code ??? Lumbar radicular pain M54.16 ??? Bladder cancer C67.9 ??? History of bladder cancer Z85.51 ??? Chronic pain in right shoulder M25.511, G89.29 ??? Shoulder arthritis M19.019 ??? s/p R RTSA (Dr. Segundo), 08/28/18 Z96.611 Additional personal factors or co-morbidities that impact plan: ?? Total # of Factors: (alone during day on D/C, LBP) 0 1-2 3+ x ?? Examination of body system impairments, functional limitations and behaviors, and/or participation restrictions. (see above) Addressing 1-2 elements Addressing 3 + elements Addressing 4 + elements x ?? Clinical presentation: See assessment above. (lightheadedness, pain) Stable/Uncomplicated Evolving/Fluctuating Symptoms Unstable/Unpredictable x ?? Clinical decision making of moderate complexity based on pt's functional performance as outlined in this evaluation. 08/29/18 1217 Rehab Evaluation Document Type evaluation Total Evaluation Minutes, Physical Therapy 35 (x1 Mod Eval, x1 Ortho Initial) Patient Effort good Symptoms Noted During/After Treatment fatigue (lightheadedness/dizziness) General Information Patient Profile Review yes Referring Physician Ratna Patient/Family/Caregiver Comments/Observations I just feel pretty foggy, I'd like to see you again tomorrow General Observations of Patient pt supine pre PT, up in recliner chair post PT with all needs in reach, VSS on RA Pertinent History of Current Problem pt is s/p R reverse TSA (Ratna) 08/28/18 Hearing Precautions/Limitations WFL Precautions/Restrictions fall;shoulder;weight bearing Precautions Comments NWB RUE in sling at all times. No formal Shoulder PT Limitations/Impairments sensory Treatment Number PT 1 Living Environment Patient population Adult Living Environment Living Environment Comment pt lives with her spouse in 1 level home. Has 5 ADEEL w/ railings on both sides. Has tub shower combo but plans to shower at her sister's down the road (walk in unit with bench). Has a recliner chair or flat bed available. Functional Level Prior Prior Functional Level Comment pt independent without AD CARVER HAND. She has a cane and a walker. works during day. Self-Care Dominant Hand right Vital Signs Heart Rate 79 BP 121/63 (post mobility, lightheaded) SpO2 93 % O2 Device RA Cognitive Assessment/Intervention Additional Documentation Cognitive Assessment Interventions (Group) Cognitive Assessment Interventions Behavior/Mood Observations (Cognitive) WNL/WFL;behavior appropriate to situation;alert;cooperative Orientation Status (Cognitive) oriented x 4 Attention (Cognitive) WNL/WFL Pain Scale/Rating Pain Assessment Scale Numbers (Numeric Rating Pain Scale) Pain Level 6 (0 at rest increasing w/ mobility) Pain Assessment Numbers/Faces/Word Pain Body Location - Side Right Pain Body Location - Orientation generalized Pain Body Location shoulder Frequency frequent ROM (Range of Motion) Additional Documentation General Assessment (Group) General Range of Motion upper extremity range of motion deficits identified General Range of Motion Detail WFLS except RUE not formally assessed 2/2 sling and precautions. Wrist/hand WFLS MMT (Manual Muscle Testing) Additional Documentation General Assessment (Group) General Manual Muscle Testing Assessment Detail WFLS except RUE not formally assessed 2/2 sling and precautions. Wrist/hand WFLS General Assessment General Manual Muscle Testing Assessment upper extremity strength deficits identified Mobility Assessment/Training Additional Documentation Bed Mobility Assessment/Treatment (Group);Gait Assessment/Treatment (Group);Transfer Assessment/Treatment (Group) Bed Mobility Assessment/Treatment Assistive Device (Bed Mobility) bed rails (HOB elevated) Scoot/Bridge [place] (Bed Mobility) contact guard assist [id number]-[id number] [place] (Bed Mobility) minimum assist (75% patient effort);verbal cues required;nonverbal cues required (demo/gesture) Safety Issues (Bed Mobility) decreased use of arms for pushing/pulling Impairments (Bed Mobility) coordination impaired;pain;ROM (range of motion) decreased;strength decreased Comment (Bed Mobility) initial incr time/effort independently to EOB, required min A for trunk to full upright sitting. Can sleep in recliner on D/C Transfer Assessment/Treatment Bed-Chair [facility] (Transfers) contact guard assist;nonverbal cues required (demo/gesture);verbal cues required Ztr-Gvjwz-Axm Assistive Device (Transfers) straight cane [place] (Sit-Stand Transfers) contact guard assist;verbal cues required;nonverbal cues required(demo/gesture) [place] (Stand-Sit Transfers) contact guard assist;verbal cues required;nonverbal cues required(demo/gesture) Iti-Tfrui-Hez Assistive Device (Transfers) straight cane Maintain Weight Bearing Status (Transfers) able to maintain weight bearing status Safety Issues (Transfers) step length decreased Impairments (Transfers) balance impaired;pain;ROM (range of motion) decreased;strength decreased Comment (Transfers) no overt LOB but incr lateral sway noted. Gait Assessment/Treatment [place] (Gait) contact guard assist;verbal cues required;nonverbal cues required (demo/gesture) Assistive Device (Gait) straight cane Distance in Feet (Gait) 150' Gait Pattern Analysis swing-through gait Deviations (Gait) brittanie decreased;step length decreased;stride length decreased Maintain Weight Bearing Status (Gait) able to maintain weight bearing status Impairments (Gait) balance impaired;pain;ROM (range of motion) decreased;strength decreased Comment (Gait) no overt LOB but incr lateral sway. Incr fatigue dizziness and lightheadedness noted AM-PAC Basic Mobility AM-PAC Mobility Completed? Yes Turning from your back to your side while in a flat bed w/o using handrails? 3 - A Little Standing up from a chair using your arms (e.g. wheelchair, or bedside commode)? 3 - A Little Moving from lying on your back to sitting on the side of a flat bed w/o using bedrails? 3 - A Little Moving to and from a bed to a chair (including a wheelchair) 3 - A Little To walk in hospital room? 3 - A Little Climbing 3-5 steps with a railing?* 3 - A Little AM-[facility] Basic Mobility Raw Score 18 Basic Mobility Standardized T-Scale Score 43.63 Basic Mobility CMS 0-100% 46.58 AM-PAC Basic Mobility CMS Modifier CK Motor Skills/Interventions Additional Documentation Balance Skills Training (Group);Therapeutic Exercise (Group) Balance Skills Training Training Strategies (Balance) KAMRAN philip Sitting Balance: Static good balance Sitting Balance: Dynamic good balance [id number] Balance fair balance Standing Balance: Static good balance Standing Balance: Dynamic fair balance Therapeutic Exercise Comment (Therapeutic Exercise) educated in wrist/hand AROM flex/ext/circles/ deviation/squeeze Orthotics/Prosthetics Additional Documentation Orthosis Management/Training (Group) Orthosis Location/Type Location/Type (Orthosis) upper extremity Upper Extremity (Orthosis) Right:;shoulder immobilizer;shoulder orthosis Orthosis Management/Training Fabrication Detail (Orthosis) hkoa Indications (Orthosis) immobilize, protect/position healing structures;restrict motion Indications Comment (Comment) reverse TSA Skills Training (Orthosis) orthosis maintenance;purpose/goals of orthosis;restrictions/precautions Skills Training Comment (Orthosis) positioning, fit, adjustments, wear schedule Wear Schedule (Orthosis) 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 Adjustment (Orthosis) orthosis adjustment needed;orthosis not meeting intended purpose Adjustment Comment (Orthosis) pillow adjusted anteriorly and superiorly, elbow positioned posteriorlym straps adjusted Sensory Assessment/Intervention Additional Documentation General Sensory Assessment (Group) General Sensory Assessment Sensory General Assessment light touch sensation deficits identified (diminished sensation generalized RUE ) Plan of Care Review Plan Of Care Reviewed With patient Progress progress toward functional goals as expected Physical Therapy Goal Types Physical Therapy Goal Types Bed Mobility Goal (Group);Gait Training Goal (Group);Transfer Training Goal (Group);Physical Therapy Goal (Group) Bed Mobility Goal Bed Mobility Goal, Date Established 08/29/18 Bed Mobility Goal, Time to Achieve by discharge Bed Mobility Goal, Activity Type all bed mobility activities Bed Mobility Goal, [place] Level supervision required Gait Training Goal Gait Training Goal, Date Established 08/29/18 Gait Training Goal, Time to Achieve by discharge Gait Training Goal, [place] Level conditional independence Gait Training Goal, Assist Device cane, straight (or LRAD) Gait Training Goal, Distance to Achieve 150' Gait Training Goal, Additional Goal 3-5 steps w/ railing, CGA Transfer Training Goal Transfer Training Goal, Date Established 08/29/18 Transfer Training Goal, Time to Achieve by discharge Transfer Training Goal, Activity Type all transfers Transfer Train Goal, [place] Level conditional independence Transfer Training Goal, Assist Device cane, straight (or LRAD) Physical Therapy Goal PT Goal, Date Established 08/29/18 PT Goal, Time to Achieve by discharge PT Goal, Activity Type independent in HEP PT Goal, Additional Goal verbalize ability to instruct caregiver in sling management Clinical Impression Rehab Potential good, to achieve stated therapy goals Therapy Frequency 1-3 more visits Anticipated Equipment Needs at Discharge (none) Anticipated Discharge Disposition home with assist General Interventions Additional Documentation Planned Therapy Interventions (Group) Planned Therapy Interventions balance training;bed mobility training;gait training;home exercise program;orthotic fitting/training;patient/family education;stair training;transfer training Plan of Care - Semaj Crawford RN - 08/29/2018 1:34 AM EDT Problem: Patient Care Overview Goal: Plan of Care Review Outcome: Ongoing (Interventions Implemented as Appropriate) 08/28/182022 Coping/Psychosocial Plan Of Care Reviewed With patient OUTCOME EVALUATION NOTE: OUTCOME SUMMARY: Pt resting between care throughout shift. Pain adequately controlled w/ scheduled medications, see MAR. Neurovascular checks unchanged, some residual numbness remains. Right sided facial/eye drooping appears to be slowly resolving. Pt voiding adequately in BR. Sundayslinger on. RODNEY in place. Frequent repositioning encouraged. VSS. Will continue to monitor. PLAN MOVING FORWARD: Pain control, mobilize, d/c planning INDIVIDUALIZED FALL PREVENTION INTERVENTIONS: Patient-specific fall risk factors per assessment: [current deficits]: Hospital environment, pain medications, impaired mobility Assistance [level of assistance required for transfers and ambulation]: SBA Supervision [direct monitoring required during toileting and ADLs]: Eyes on Surveillance [continuous indirect monitoring]: Hourly rounding, MERLIN Stoll at bedside, call ratna within reach Op Note - Amanda Segundo MD - 08/28/2018 1:20 PM EDT [facility] [place] Patient Name: Julissa Etienne : [id number] MR#: [id number] Case Date: 08/28/2018 Surgeon: Surgeon(s) and Role: * Amanda Segundo MD - Primary * Adriana Sorensen MD - Resident Preoperative diagnosis: RIGHT SHOULDER ARTHRITIS Postoperative diagnosis: RIGHT SHOULDER ARTHRITIS Procedure(s) (LRB): @TOTAL SHOULDER ARTHROPLASTY (WRVU 22.13) (Right) MODIFIER KUN TM REVERSE (N/A) MODIFIER BEACH CHAIR SCHLEIN (N/A) Anesthesia: General Estimated Blood Loss: * No values recorded between 08/28/2018 11:42 AM and 08/28/2018 12:54 PM * Specimens removed during surgery: None Drains: Drain/Device Site 08/28/18 1237 Right shoulder collapsible closed device (Active) Surgical Closure: Primary Closure - skin incision is completely closed without any wires, garry, drains or other devices Disposition: awakened from anesthesia, extubated and taken to the recovery room in a stable condition, having suffered no apparent untoward event. Condition: doing well without problems (Please see the Surgical Encounter Summary for any Implant and Specimen details pertinent to this patient.) HPI/Surgical Indications: None apparent Procedure Description: Anesthesia: General and regional Complications: None apparent Implants Used: Kun TM Reverse Stem: 12 x130 mm, press-fit Poly: 36+3 mm Glenosphere: 36 mm Standard baseplate Variable angle locking screws: 36 superior, 48 inferior Pre-operative Evaluation: The patient was identified in the preoperative holding area. After confirming that the right shoulder was the correct site of surgery with both the patient and the informed consent, a green pedro bay was placed on the operative shoulder. The plan was reviewed with the patient and all questions were answered. The patient was then taken to the operating room. After anesthesia was induced, the patient was placed in the beach chair position taking care to pad all pressure points and support the head and neck in a neutral and comfortable position. A time-out was called and all present agreed on the correctpatient, correct site of surgery, and correct procedure. Antibiotics were administered prior to incis ion. Examination under anesthesia: The shoulder was examined under anesthesia. Range of motion was 150 degrees passive forward elevation, 60 degrees passive external rotation at the side. Instability examination revealed no anterior, posterior, or inferior instability. Description of Operation: The entire procedure was done with ventilated sterile helmets to decrease the risk of infection. The shoulder was prepped and draped in a standard sterile fashion, utilizing copious chlorhexidine scrub, alcohol, and Chloraprep. The shoulder was then prepped and draped in a standard sterile fashion, including sealing off of the skin and axilla with Ioban drapes. A 12 centimeter incision was made starting 1 centimeter proximal to the coracoid and extending 1 centimeter lateral to the coracoid down along the deltopectoral interval. It was carried sharply through skin and needle-tip electrocautery was used to dissect through the subcutaneous fat. Full thicknesss skin flaps were raised anteriorly and posteriorly just over the deltopectoral fascia. The fat stripe surrounding the deltopectoral interval and the cephalic vein was identified and the vein was dissected out. It was retracted laterally and preserved throughout the case. The triangular expansion of the deltopectoral interval was dissect proximally all the way to the clavicle. The pectoralis major tendon was then identified distally at its insertion into the humerus. The clavipectoral fascia was incised just lateral to the conjoint tendon and the conjoint tendon was retracted medially, taking care not to stretch the musculocutaneous nerve. The musculocutaneous nerve was palpated to avoid excessive retraction on it. The subacromial and subdeltoid bursal spaces were entered and bluntly developed, taking care to avoid damage to the overlying deltoid or the underlying rotator cuff. The deltoid was retracted laterally with a Link self-retaining retractor. The subscapularis was absent. There was some thin capsular tissue still attached which was peeled off of the neck of the humerus. The long head of the biceps was absent. Inferior capsular fibers were released offthe neck of the humerus and the shoulder was dislocated anteriorly by externally rotating in adduction and extension with a Darrach around the surgical neck. The rotator cuff was inspected. Supraspinatus and infraspinatus were irreparably torn and retractedpast the level of the glenoid. There was still some teres minor intact. The canal was identified through a starting point just posterior to the bicipital groove. This was entered and sequentially reamed. We reamed easily up to 12 mm before meeting resistance. The head was cut off using a cutting blockjust at the level of the rotator cuff insertion in 20 degrees of retroversion. The metaphyseal reamer was also utilized in an identical amount of retroversion. Following canal preparation, the trial equal to the last reamer size was impacted. This was found to fit appropriately, snugly and was fully se ated. The humerus was then retracted posteriorly with a Fukuda leaving the trial stem in place. This allowed exposure of the glenoid. An anterior inferior capsulectomy was performed. The axillary nerve was identified and protected throughout the case. It was continuously palpated throughout the release and found to be under excellent tension with no evidence of injury. The glenoid showed mild superior wear. The center of the glenoid was identified and the natural version was identified by palpating the anterior neck. The glenoid base plate drill guide was placed such that the inferior aspect of the baseplate was flush with the inferior aspect of the glenoid and care was taken to ensure there was no inferior angulation of the center guide wire. The long head of the triceps was reflected off of the scapular pillar in order to facilitate visualization of the inferior glenoid and exposure. Once the guidewire was placed centrally and inferiorly, it was reamed and overdrilled. The guidewire was then removed and the baseplate was impacted into position and oriented such that the superior and inferior locking screw holes were oriented towards the coracoid base and scapular pillar respectively. It was found to have excellent press-fit purchase. Drill holes were then created and measured and the screws were inserted with appropriate purchase. The 36 mm glenosphere was then secured to the baseplate and confirmed to be appropriately positioned by palpation. The Fukuda was carefully removed and the humerus was again externally rotated, taking care not to damage the glenosphere. Trial polyethylene sizes were then utilized to confirm the appropriateness of the humeral head cut for stability. The trial stem was removed and the implant was then impacted into position and confirmed to have good press-fit. Various polyethylene sizes were trialed, and we settled on a polyethylene of size 36+3. This was found to be stable through a full range of motion and could only be dislocatedwith significant traction and manual leverage of the humeral head. I found this to be ideal. The polyethylene implant was then impacted into position. The anterior capsular tissue was then repaired directly to the implant and humerus using #2 Fiberwire. The wounds were thoroughly irrigated. A medium Hemovac drain was placed under the deltopectoral layer, exiting posteriorly and superiorly. The deltopectoral interval was closed with 0 Ethibond nonabsorbable green suture and the subcutaneous tissue with 2-0 Vicryl and the skin with 3-0 Monocryl suture. Sterile dressing was applied, followed by a Cryocuff and a sling in neutral rotation. Postoperative Plan: Post-op plan will be for sling immobilization of the shoulder for the next 6 weeks, coming out onlyfor gentle elbow, wrist, and hand range of motion. No formal shoulder therapy, range of motion, or activity should be done for the first 6 weeks. Infection Bundle used? N/A Attestation: Case Date: 08/28/2018 I was present and I participated during the entire procedure (does not need to include opening and closing). AMANDA SEGUNDO MD 08/28/2018 documented in this encounter Plan of Treatment Not on filedocumented as of this encounter Procedures Procedure Name Priority Date/Time Associated Comments Diagnosis HEMOGRAM Routine 08/30/2018 3:58 AM Results f or this EDT procedure are i n the results section. DIFFERENTIAL, Routine 08/30/2018 3:58 AM Results for this AUTOMATED EDT procedure are i n the results section. CBC (WITH DIFF) Routine 08/30/2018 3:58 AM EDT BASIC METABOLIC PANEL Routine 08/30/2018 3:58 AM Results for this (NON-FASTING) EDT procedure are in the results section. HEMOGRAM Routine 08/29/2018 4:31 AM Results f or this EDT procedure are i n the results section. DIFFERENTIAL, Routine 08/29/2018 4:31 AM Results for this AUTOMATED EDT procedure are i n the results section. CBC (WITH DIFF) Routine 08/29/2018 4:31 AM EDT BASIC METABOLIC PANEL Routine 08/29/2018 4:31 AM Results for this (NON-FASTING) EDT procedure are in the results section. XR SHOULDER RIGHT Routine 08/28/2018 2:20 PM Resu lts for this EDT procedure are i n the results section. MODIFIER BEACH CHAIR 08/28/2018 11:13 RIGHT SHOULDER SCHLEIN AM EDT ARTHRITIS MODIFIER KUN TM 08/28/2018 11:13 RIGHT SHOULDER REVERSE AM EDT ARTHRITIS TOTAL SHOULDER 08/28/2018 11:13 RIGHT SHOULDER ARTHROPLASTY (WRVU AM EDT ARTHRITIS 22.13) IMPLANTABLE DEVICES 08/28/2018 12:00 Resu lts for this SCAN AM EDT procedure are i n the results section. documented in this encounter Results (ABNORMAL) Differential, Automated (08/30/2018 3:58 AM EDT) [facility] Method Time Signature Neutrophils % 59.5 % [facility] Neutr Abs (ANC) 5.16 1.70 - [facility] 6.10 [facility] x10(3)/[facility] LABORATORY Lymphocytes % 24.4 % [facility] Lymphocytes Abs 2.1 0.9 - 3.2 [facility] x10(3)/[facility] LABORATORY Monocytes % 13.3 % [facility] Monocyte Abs 1.2 (H) 0.3 - 0.9 [facility] x10(3)/[facility]ORY Eosinophils % 2.0 % [facility] Eosinophils Abs 0.2 0.0 - 0.4 [facility] x10(3)/[facility] Basophils % 0.3 % [facility] Basophils Abs 0.0 0.0 - 0.1 [facility] x10(3)/[facility] LABOR[facility]ORY Immature Gran % 0.50 % [facility] Comment: Immature granulocytes(IG's)percentage an d absolute count will include metamyelocytes, myelocytes, and promyelo cytes. Blood smears from CBCs yielding IG's will be scanned manually for concana danhussain. If this scan disagrees with the automated IG or if promyelocytes are not ed, a manual differential will be performed. Monet Gran Abs 0.04 0.00 - 0.04 x10(3)/[facility] Y [facility] Specimen Anatomical Collection Method Collection Time Receive d Time (Source) Location / / Volume Laterality Blood specimen 08/30/2018 3:58 AM 019 4:07 (specimen) EDT AM EDT Resulting Agency Comment Spec In Lab Adriana Sorensen MD HEMATOLOGY ORDERABLES Performing Organization Address City/State/[place] [address] (ABNORMAL) Hemogram (08/30/2018 3:58 AM EDT) Analysis Performed At Patho logist Time Signature WBC 8.7 4.0 - 9.5 [facility] x10(3)/[facility] LABORATORY RBC 3.69 (L) 4.00 - [facility] 5.21 [facility] x10(6)/[facility] LABORATORY Hemoglobin 11.2 (L) 11.7 - [facility] gm/dL [facility]ORY Hematocrit 34.9 (L) 35.7 - [facility] 45.8 % [facility] MCV 94.6 (H) 82.6 - [facility] LAB[facility]ATORY MCH 30.4 27.1 - [facility] 32.0 pg [facility]ORY MCHC 32.1 31.7 - [facility] 35.0 gm/dL [facility] Platelets 178 145 - 357 [facility] x10(3)/[facility] LABORATORY RDWSD 45.6 37.0 - [facility] 46.0 [facility] LABORATORY RDWCV 13.2 11.5 - [facility] 14.1 % [facility] LABORATORY MPV 9.7 7.6 - 12.9 [facility] LABORATORY nRBC % Auto 0.0 % [facility] nRBC Abs Auto 0.000 0.000 - [place] 0.000 [facility] x10(3)/[facility] LABORATORY Specimen Anatomical Collection Method Collection Time Receive d Time (Source) Location / / Volume Laterality Blood specimen 08/30/2018 3:58 AM 05/16/2 019 4:07 (specimen) EDT AM EDT Resulting Agency Comment Spec In Lab Adriana Sorensen MD HEMATOLOGY ORDERABLES Performing Organization Address City/State/[place] [address] (ABNORMAL) Basic Metabolic Panel (non-fasting) (08/30/2018 3:58 AM EDT) P athologist Signature Glucose Lvl 117 65 - 199 [facility] mg/dL [facility] Comment: Diabetes: >=200 mg/dL plus symp toms BUN 13 8 - 18 mg/dL [facility] Creatinine 0.57 (L) 0.70 - 1.20 mg/dL [facility] Sodium 142 135 - 145 mmol/L [facility] Potassium 4.2 3.5 - 5.0 mmol/L [facility] Comment: Please note: ??Patients with WBC >100,00 0 may have falsely elevated Potassium levels. ??For accurate Potassium quantif ication in these patients send serum separator tube (gold top) for subsequent determinations. ??Contact the Clinical Chemistry Laboratory if there are any qu estions. Chloride 105 98 - 107 mmol/L [facility] CO2 28 22 - 31 mmol/L [facility] Anion Gap 9 5 - 15 mmol/L [facility] Calcium 8.4 (L) 8.5 - 10.5 mg/dL [facility] Estimated GFR 91 >=60 mL/min/1.73 m?? [facility] Comment: The eGFR was calculated using the CKD-EP I equation. As with all creatinine based estimates of kidney function, eGFR values calculated with the CKD-EPI equation are not accurate in patients wi th acute kidney failure, extremes of body mass or the acutely ill. [email or web address]/[facility] eGFR 105 >=60 mL/min/1.73 m?? [facility] Comment: The eGFR was calculated using the CKD-EP I equation. As with all creatinine based estimates of kidney function, eGFR values calculated with the CKD-EPI equation are not accurate in patients wi th acute kidney failure, extremes of body mass or the acutely ill. [email or web address]/[facility] Specimen Anatomical Collection Method Collection Time Receive d Time (Source) Location / / Volume Laterality Blood specimen 08/30/2018 3:58 AM 019 4:07 (specimen) EDT AM EDT Resulting Agency Comment Spec In Lab Amanda Segundo MD CHEMISTRY ORDERABLES Performing Organization Address City/State/[place] [address] (ABNORMAL) Differential, Automated (08/29/2018 4:31 AM EDT) [facility] Method Time Signature Neutrophils % 70.5 % [facility] Neutr Abs (ANC) 7.73 (H) 1.70 - [facility] 6.10 [facility] x10(3)/[facility] LABORATORY Lymphocytes % 17.2 % [facility] Lymphocytes Abs 1.9 0.9 - 3.2 [facility] x10(3)/[facility] LABORATORY Monocytes % 11.1 % [facility] Monocyte Abs 1.2 (H) 0.3 - 0.9 [facility] x10(3)/[facility] LABORATORY Eosinophils % 0.4 % [facility] Eosinophils Abs 0.0 0.0 - 0.4 [facility] x10(3)/[facility] LABORATORY Basophils % 0.3 % [facility] Basophils Abs 0.0 0.0 - 0.1 [facility] x10(3)/[facility] LABORATORY Immature Gran % 0.50 % [facility] Comment: Immature granulocytes(IG's)percentage an d absolute count will include metamyelocytes, myelocytes, and promyelo cytes. Blood smears from CBCs yielding IG's will be scanned manually for concor dance. If this scan disagrees with the automated IG or if promyelocytes are not ed, a manual differential will be performed. Monet Gran Abs 0.06 (H) 0.00 - 0.04 x10(3)/[facility] LABORATORY Specimen Anatomical Collection Method Collection Time Receive d Time (Source) Location / / Volume Laterality Blood specimen 08/29/2018 4:31 AM 019 4:45 (specimen) EDT AM EDT Resulting Agency Comment Spec In Lab Adriana Sorensen MD HEMATOLOGY ORDERABLES Performing Organization Address City/State/[place] [address] (ABNORMAL) Hemogram (08/29/2018 4:31 AM EDT) Analysis Performed At Patho logist Time Signature WBC 11.0 (H) 4.0 - 9.5 [facility] LAB[facility]ATORY RBC 3.79 (L) 4.00 - [facility] 5.21 [facility] x10(6)/[facility] LABORATORY Hemoglobin 11.5 (L) 11.7 - [facility] 15.5 gm/dL [facility] LABOR[facility]ORY Hematocrit 35.2 (L) 35.7 - [facility] 45.8 % [facility]ORY MCV 92.9 82.6 - [facility] 94.4 [facility] LABORATORY MCH 30.3 27.1 - [facility] 32.0 pg [facility]ATORY MCHC 32.7 31.7 - [facility] gm/dL [facility]ORY Platelets 193 145 - 357 [facility] x10(3)/[facility] LABORATORY RDWSD 43.8 37.0 - [facility] 46.0 [facility] LABORATORY RDWCV 12.8 11.5 - [facility] 14.1 % [facility] LABORATORY MPV 9.7 7.6 - 12.9 [facility] LABORATORY nRBC % Auto 0.0 % [facility] nRBC Abs Auto 0.000 0.000 - [facility] 0.000 [facility] x10(3)/[facility] LABORATORY Specimen Anatomical Collection Method Collection Time Receive d Time (Source) Location / / Volume Laterality Blood specimen 08/29/2018 4:31 AM 019 4:45 (specimen) EDT AM EDT Resulting Agency Comment Spec In Lab Adriana Sorensen MD HEMATOLOGY ORDERABLES Performing Organization Address City/State/[place] [address] (ABNORMAL) Basic Metabolic Panel (non-fasting) (08/29/2018 4:31 AM EDT) P athologist Signature Glucose Lvl 117 65 - 199 [facility] mg/dL [facility] Comment: Diabetes: >=200 mg/dL plus symp toms BUN 9 8 - 18 mg/dL [facility] Creatinine 0.62 (L) 0.70 - 1.20 mg/dL [facility] Sodium 142 135 - 145 mmol/L [facility] Potassium 3.8 3.5 - 5.0 mmol/L [facility] Comment: Please note: ??Patients with WBC >100,00 0 may have falsely elevated Potassium levels. ??For accurate Potassium quantif ication in these patients send serum separator tube (gold top) for subsequent determinations. ??Contact the Clinical Chemistry Laboratory if there are any qu estions. Chloride 106 98 - 107 mmol/L [facility] CO2 26 22 - 31 mmol/L [facility] Anion Gap 10 5 - 15 mmol/L [facility] Calcium 8.7 8.5 - 10.5 mg/dL [facility] Estimated GFR 88 >=60 mL/min/1.73 m?? [facility] Comment: The eGFR was calculated using the CKD-EP I equation. As with all creatinine based estimates of kidney function, eGFR values calculated with the CKD-EPI equation are not accurate in patients wi th acute kidney failure, extremes of body mass or the acutely ill. http://[employer]/[facility] eGFR 102 >=60 mL/min/1.73 m?? [facility] Comment: The eGFR was calculated using the CKD-EP I equation. As with all creatinine based estimates of kidney function, eGFR values calculated with the CKD-EPI equation are not accurate in patients wi th acute kidney failure, extremes of body mass or the acutely ill. http://[employer]/[facility] Specimen Anatomical Collection Method Collection Time Receive d Time (Source) Location / / Volume Laterality Blood specimen 08/29/2018 4:31 AM 019 4:45 (specimen) EDT AM EDT Resulting Agency Comment Spec In Lab Amanda Segundo MD CHEMISTRY ORDERABLES Performing Organization Address City/State/[place] [address] XR Shoulder Right (Generic) (08/28/2018 2:20 PM EDT) Anatomical Region Laterality Modality Shoulder Right Digital Radiography Specimen (Source) Anatomical Location Collection Method / Collectio n Time Received Time / Laterality Volume Impressions 08/28/2018 3:53 PM EDT Interval reverse total shoulder arthroplasty. No immediate hardware complications. Thank you for letting us participate in the care of this patient. For questions regarding this report, please contact [facility] number below. ? Narrative 08/28/2018 3:53 PM EDT EXAMINATION: XR SHOULDER RIGHT (GENERIC) CLINICAL HISTORY: s/p R RTSA 4 View TECHNIQUE: 4 views RIGHT shoulder. AP internal and external rotation, scapular Y, and x-ray views the right shoulder. COMPARISON: Right shoulder radiographs 08/16/2018. FINDINGS: Interval reverse total shoulder arthropl asty. No periprosthetic fracture. There is a surgical drain projecting over the soft tissues of the right shoulder. There is scattered soft tissue gas aroun d the right shoulder. No gross malalignment. Procedure Note Angelica oLndon MD - 08/28/2018Formattin g of this note might be different from the original. EXAMINATION: XR SHOULDER RIGHT (GENERIC) CLINICAL HISTORY: s/p R RTSA 4 View TECHNIQUE: 4 views RIGHT shoulder. AP internal and external rotation, scapular Y, and x-ray views the right shoulder. COMPARISON: Right shoulder radiographs 08/16/2018. FINDINGS: Interval reverse total shoulder arthropl asty. No periprosthetic fracture. There is a surgical drain projecting over the soft tissues of the right shoulder. There is scattered soft tissue gas aroun d the right shoulder. No gross malalignment. IMPRESSION Interval reverse total shoulder arthropl asty. No immediate hardware complications. Thank you for letting us participate in the care of this patient. For questions regarding this report, please contact e number below. Amanda Segundo MD IMG DX ORDERABLES SCAN DOC: IMPLANTABLE DEVICES (08/28/2018 12:00 AM EDT) Narrative 08/28/2018 12:00 AM EDT This result has an attachment that is no t available. Ordered by an unspecified provider. Scanning Provider MEDIA MGR SCAN EXT ORDR/RSLT documented in this encounter Visit Diagnoses Not on filedocumented in this encounter Admitting Diagnoses Diagnosis Shoulder arthritis Unspecified arthropathy, shoulder region documented in this encounter Administered Medications Inactive Administered Medications - up to 3 most recent administrations Medication Order MAR Action Action Date Dose Rate Site acetaminophen (TYLENOL) tablet Given 08/30/2018 8:19 AM EDT 1,00 0 mg 1,000 mg 1,000 mg, Oral, EVERY 8 HOURS SCHEDULED, First dose on Mon08/28/18 at 1700, Until Discontinued, Maximum dose of acetaminophen is 4000 mg from all sources in 24 hours., Routine Given 08/29/2018 5:51 PM EDT 1,000 mg Given 08/29/2018 9:11 AM EDT 1,000 mg aspirin EC tablet 81 mg Given 08/30/2018 8:19 AM EDT 81 mg 81 mg, Oral, 2 TIMES DAILY, First dose on Mon08/29/18 at 0900, Until Discontinued, Routine Given 08/29/2018 10:14 PM EDT 81 mg Given 08/29/2018 9:12 AM EDT 81 mg bacitracin injection Given 08/28/2018 11:49 AM 50,000 Units 19- [facility] Site ONCE PRN, Starting on Mon EDT 08/28/18 at 1149, Until Mon08/30/18 at 1914, Intra-Operative (Intra-Procedure), Routine citalopram (CeleXA) tablet 20 mg Given 08/30/2018 8:20 AM EDT 20 mg 20 mg, Oral, DAILY, First dose on Mon08/29/18 at 0900, Until Discontinued, Routine Given 08/29/2018 9:12 AM EDT 20 mg gabapentin (NEURONTIN) capsule 300 mg Given 08/29/2018 10:14 PM EDT 300 mg 300 mg, Oral, NIGHTLY, First dose on Mon08/28/18 at 2100, Until Discontinued, Routine Given 08/28/2018 8:23 PM EDT 300 mg HYDROmorphone (DILAUDID) tablet 2 mg 2 mg, Oral, EVERY 4 HOURS PRN, Starting on Mon08/28/18 at 1331, Until Mon08/30/18 at 1914, Pain, mild pain (1-3), For mild pain (1-3). Do not exceed 6 mg in 4 hours. If pain not relieved, call provider., Routine HYDROmorphone (DILAUDID) tablet 4 mg Given 08/30/2018 8:19 AM EDT 4 mg 4 mg, Oral, EVERY 4 HOURS PRN, Starting on Mon08/28/18 at 1331, Until Fadia 08/30/18 at 1914, Pain, moderate pain (4-6), For moderate pain (4-6). Do not exceed 6 mg in 4 hours. If pain not relieved, call provider., Routine Given 08/29/2018 10:14 PM EDT 4 mg Given 08/29/2018 5:51 PM EDT 4 mg HYDROmorphone (DILAUDID) tablet 6 mg 6 mg, Oral, EVERY 4 HOURS PRN, Starting on Mon08/28/18 at 1331, Until Fadia 08/30/18 at 1914, Pain, severe pain (7-10), For s evere pain (7-10). Do not exceed 6 mg in 4 hours. If pain not relieved, call provider., Routine ondansetron (ZOFRAN) injection 4 mg Given 08/30/2018 11:55 AM EDT 4 mg 4 mg, Intravenous, EVERY 8 HOURS PRN, Starting on Mon08/28/18 at 1737, Until Fadia 08/30/18 at 1914, Nausea, Vomiting, May repeat 4 mg IV once in 30 minutes for unrelieved nausea or vomiting. If multiple antiemetics are ordered, use ondansetron first, prochlorperazine second, metoclopramide third., Routine polyethylene glycol (MIRALAX) packet 17 g Given 08/30/2018 8:20 AM EDT 17 g 17 g, Oral, 2 TIMES DAILY, First dose on Mon08/28/18 at 2100, Until Discontinued, Routine Given 08/29/2018 9:11 AM EDT 17 g senna-docusate (PERICOLACE) 8.6-50 mg per Given 2018 8:20 AM EDT 2 tablets tablet 2 tablet 2 tablet, Oral, 2 TIMES DAILY, First dose on Mon08/28/18 at 2100, Until Discontinued, Routine Given 08/29/2018 9:11 AM EDT 1 tablet sodium chloride 0.9 % flush 5 mL Given 08/30/2018 8:23 AM EDT 5 mLs 5 mL, Intravenous, 2 TIMES DAILY, First dose on Mon08/28/18 at 2100, Until Discontinued, Recovery (Recovery-Hospital Unit), Routine Given 08/29/2018 9:00 PM EDT 5 mLs Given 08/29/2018 9:17 AM EDT 5 mLs documented in this encounter Active and Recently Administered Medications Times are shown in EDT. Scheduled Medication Order 08/28/2018 08/29/2018 08/30/2018 acetaminophen (TYLENOL) tablet 1,000 mg (COMPLETED) 12 18 (Given - Provider: Yojana Reyna RN) 1,000 mg, Oral, ONCE, 1 dose, Mon 9 at 0915, Administer with SIP of H2O only., Day of Surgery (Day of Procedure), Routine acetaminophen (TYLENOL) tablet 1,000 mg 1615 (Given - Provider: Rosalia Biggs RN) 0020 (Given - Provider: Semaj poole RN)0911 (Given - Provider: Lexie Gonzales RN)1751 (Given - Provider: Lexie Gonzales RN) 0100 (Not Given - Provider: Angelica Cornejo, RADHA - Reason: Patient/family refused)0819 (Given - Provider: Lexie Gonzales RN)1700 (Due - Provider: Rosalia Biggs RN) 1,000 mg, Oral, EVERY 8 HOURS SCHEDULED, First dose on Mon08/28/18 at 1700, Until Discontinued, Maximum dose of acetaminophen is 4000 mg from all sources in 24 hours., Routine aspirin EC tablet 81 mg 0912 (Given - Pr ovider: Lexie Gonzales RN)2214 (Given - Provider: Angelica Cornejo, RADHA) 0819 (Given - Provider: Lexie Gonzales RN) 81 mg, Oral, 2 TIMES DAILY, First dose o n Mon08/29/18 at 0900, Until Discontinued, Routine ceFAZolin (ANCEF) 1g in dextrose 5% 50mL () 161 0 (New Bag - Provider: Rosalia Biggs RN)1640 (Stopped - Provider: Rosalia Biggs RN) 0020 (New Bag - Provider: Semaj Crawford, RN)0050 (Stopped - Provider: Semaj Crawford, RN)0632 (Stopped - Provider: Semaj Crawford, RN - Comment: IV stopped, possible IV infiltrate, IV te 1 g, Intravenous, EVERY 8 HOURS, 3 doses , First dose on Mon08/28/18 at 1530, Last dose on Mon08/29/18 at 0730, Administer over 30 Minutes, Adjust to 4 hours from intraoperative dose. * Beta-lactam based am paged . med needs to be restarted after new access placed)0800 (Restarted - Provider: Lexie Gonzales RN) antibiotics (eg. Ampicillin, Cefazolin, Aztreonam) should be administered within 4 hours of the preceding intraoperative dose. * Vancomycin, Flouroquinolones, Clindamycin, Gentamicin, and Metronidazole should be administered within 8 hours o f the preceding intraoperative dose., Recovery (Recovery-Hospital Unit), Indication for (Active or Suspected): Prophylaxis ceFAZolin (ANCEF) 2g in dextrose 5% 100 mL (COMPLETED) 1131 (Given - Provider: Glenn Gibbons MD) 2 g, Intravenous, EVERY 3 HOURS, 1 dose, First dose on Mon08/28/18 at 0915, Administer over 30 Minutes, Redose after 3 hours., Intra-Operative (Intra- Procedure), Indication for (Active or Suspected): Prophylaxis citalopram (CeleXA) tablet 20 mg 911 (Given - P rovider: Lexie Gonzales RN) 819 (Given - Provider: Lexie Gonzales, RADHA) 20 mg, Oral, DAILY, First dose on Mon at 0900, Until Discontinued, Routine gabapentin (NEURONTIN) capsule 300 mg 2022 (Given - Pr ovider: Semaj Crawford, RADHA) 2213 (Given - Provider: Angelica Cornejo, RADHA) 300 mg, Oral, NIGHTLY, First dose on Mon08/28/18 at 2100, Until Discontinued, Routine ketorolac (TORADOL) injection 15 mg (COMPLETED) 133 ( Given - Provider: Rosalia Biggs, RADHA)2022 (Given - Provider: Semaj Crawford RN) 06 (Given - Provider: Semaj Crawford RN)1355 (Given - Provider: Lexie Gonzales RN) 15 mg, Intravenous, EVERY 6 HOURS SCHEDU LED, 4 doses, First dose on Mon08/28/18 at 1400, Last dose on Mon08/29/18 at 0900, Routine polyethylene glycol (MIRALAX) packet 17 g 2099 (Not Gi swapnil - Provider: Semaj Crawford RN - Reason: Patient/family refused) 910 (Given - Provider: Lexie Gonzales RN)2099 (Not Given - Provider: Angelica Cornejo RN - Reason: Patient/family refused) 819 (Given - Provider: Lexie Gonzales, RADHA) 17 g, Oral, 2 TIMES DAILY, First dose on Mon08/28/18 at 2100, Until Discontinued, Routine senna-docusate (PERICOLACE) 8.6-50 mg per tablet 2 tab let 2099 (Not Given - Provider: Semaj Crawford RN - Reason: Patient/family refused) 910 (Given - Provider: Lexie Gonzales RN - Comment: patient dropped one on floor and requested not to replace it)2099 (Not Given - Provider: Angelica Cornejo RN - Reason: Patient/family refused) 0820 (Given - Provider: Lexie Gonzales, RADHA) 2 tablet, Oral, 2 TIMES DAILY, First dos e on Mon08/28/18 at 2100, Until Discontinued, Routine sodium chloride 0.9 % flush 5 mL 2100 (Not Given - Pro vider: Semaj Crawford RN - Reason: See comment - Comment: iv infusing) 0917 (Given - Provider: Lexie Gonzales, RADHA)2100 (Given - Provider: Angelica Cornejo, RADHA) 0823 (Given - Provider: Lexie Gonzales, RADHA) 5 mL, Intravenous, 2 TIMES DAILY, First dose on Mon08/28/18 at 2100, Until Discontinued, Recovery (Recovery-Hospital Unit), Routine Continuous Medication Order 08/28/2018 08/29/2018 08/30/2018 lactated ringers infusion (CANCELED) 0902 (New Bag - P rovider: Yojana Reyna RN)1110 (New Bag - Provider: Glenn Gibbons MD)1146 (Anesthesia Volume Adjustment - Provider: Glenn Gibbons MD)1312 (Anesthesia Volume Adjustment - Provider: Glenn Gibbons MD) 1,000 mL, at 100 mL/hr, Intravenous, CON TINUOUS, Starting Mon08/28/18 at 0915, Until Mon08/28/18 at 1331, Day of Surgery (Day of Procedure) sodium chloride 0.9% infusion () 1334 (New Bag - Provider: Rosalia Biggs RN) 75 mL/hr, at 75 mL/hr, Intravenous, CONT INUOUS, Starting Mon08/28/18 at 1345, Until 08/29/18 at 0144, Recovery (Recovery-Hospital Unit) PRN Medication Order 08/28/2018 08/29/2018 08/30/2018 bacitracin injection (CANCELED) 1149 (Given - Provider : Amanda Segundo MD - Comment: Mixed with 1000 mL normal saline for PRN use via pulse lavage.) ONCE PRN, Starting Mon08/28/18 at 1149, Until Fadia 08/30/18 at 1914, Intra- Operative (Intra-Procedure), Routine HYDROmorphone (DILAUDID) tablet 2 mg(Linked Group 1) 09 (See Alternative - Provider: Lexie Gonzales RN)1351 (See Alternative - Provider: Lexie Gonzales RN)175 (See Alternative - Provider: Lexie Gonzales RN)221 (See Alternative - Provider: Angelica Cornejo RN) 0819 (See Alternative - Provider: Lexie Gonzales RN) 2 mg, Oral, EVERY 4 HOURS PRN, Starting 08/28/18 at 1331, Until Fadia 08/30/18 at 1914, Pain, mild pain (1-3), For mild pain (1-3). Do not exceed 6 mg in 4 hours. If pain not relieved, call provider., Routine HYDROmorphone (DILAUDID) tablet 4 mg(Linked Group 1) 911 (Given - Provider: Lexie Gonzales RN)135 (Given - Provider: Lexie Gonzales RN)175 (Given - Provider: Lexie Gonzales RN)2213 (Given - Provider: Angelica Cornejo RN) 0819 (Given - Provider: Lexie Gonzales RN) 4 mg, Oral, EVERY 4 HOURS PRN, Starting 08/28/18 at 1331, Until Fadia 08/30/18 at 1914, Pain, moderate pain (4-6), For moderate pain (4-6). Do not exceed 6 mg in 4 hours. If pain not relieved, call provider., Routine HYDROmorphone (DILAUDID) tablet 6 mg(Linked Group 1) 911 (See Alternative - Provider: Lexie Gonzales RN)135 (See Alternative - Provider: Lexie Gonzales RN)175 (See Alternative - Provider: Lexie Gonzales RN)221 (See Alternative - Provider: Angelica Cornejo RN) 0819 (See Alternative - Provider: Lexie Gonzales RN) 6 mg, Oral, EVERY 4 HOURS PRN, Starting 08/28/18 at 1331, Until Fadia 08/30/18 at 1914, Pain, severe pain (7-10), For severe pain (7-10). Do not exceed 6 mg in 4 hours. If pain not relieved, call provider., Routine lidocaine (XYLOCAINE) 10 mg/mL (1 %) injection 3 mg (C OMPLETED) 0902 (Given - Provider: Yojana Reyna, RADHA) 3 mg (0.3 mL), Subcutaneous, ONCE PRN, 1 dose, Starting 08/28/18 at 0850, Until 08/28/18 at 0902, for discomfort with PIV insertion, Day of Surgery (Day of Procedure), Routine lidocaine (XYLOCAINE) 10 mg/mL (1 %) injection 3 mg 3 mg (0.3 mL), Subcutaneous, ONCE PRN, 1 dose, Starting 08/28/18 at 1737, Until Fadia 08/30/18 at 1914, for discomfort with PIV insertion, Recovery (Recovery-Hospital Unit), Routine midazolam (PF) (VERSED) injection 1 mg (CANCELED) 1010 (Given - Provider: Yojana Reyna RN)1020 (Given - Provider: Yojana Reyna RN) 1 mg, Intravenous, EVERY 5 MIN PRN, Star ting 08/28/18 at 0953, Until 08/28/18 at 1331, Sleep, or prior to injection of local anesthetic, Hold for delirium/agitation. (Maximum dose 5 mg)., Day of Surgery (Day of Procedure), Routine ondansetron (ZOFRAN) injection 4 mg 1155 (Given - Provider: Lexie Gonzales RN) 4 mg, Intravenous, EVERY 8 HOURS PRN, St arting 08/28/18 at 1737, Until Fadia 08/30/18 at 1914, Nausea, Vomiting, May repeat 4 mg IV once in 30 minutes for unrelieved nausea or vomiting. If multiple a ntiemetics are ordered, use ondansetron first, prochlorperazine second, metoclopramide third., Routine sodium chloride 0.9 % flush 5-20 mL 5-20 mL, Intravenous, EVERY 1 MIN PRN, S tarting 08/28/18 at 1737, Until Fadia 08/30/18 at 1914, flush, Flush pertains to all indwelling lines. Flush per protocol found in the job aid using the link prov ided on this medication record., Recovery (Recovery-Hospital Uni t), Routine Linked Groups Order Group 1: HYDROmorphone (DILAUDID) tablet 2 mgJump to med 2 mg, Oral, EVERY 4 HOURS PRN, Starting e 08/28/18 at 1331, Until Fadia 08/30/18 at 1914, Pain, mild pain (1-3)
For mild pain (1-3). Do not exceed 6 mg in 4 hours. If pain not relieved, call provider.
Routine Or HYDROmorphone (DILAUDID) tablet 4 mgJump to med 4 mg, Oral, EVERY 4 HOURS PRN, Starting 08/28/18 at 1331, Until Fadia 08/30/18 at 1914, Pain, moderate pain (4-6)
For moderate pain (4-6). Do not exceed 6 mg in 4 hours. If pain not relieved, call provider.
Routine Or HYDROmorphone (DILAUDID) tablet 6 mgJump to med 6 mg, Oral, EVERY 4 HOURS PRN, Starting Mon08/28/18 at 1331, Until Fadia 08/30/18 at 1914, Pain, severe pain (7-10)
For severe pain (7-10). Do not exceed 6 mg in 4 hours. If pain not relieved, call provider.
Routine documented in this encounter Care Teams Fertilizer Mixer Relationship Specialty Start Date End Date Mellissa Garnett MD PCP - General 03/09/[address] [place] [address] [address] [place] [address] documented as of this encounter
--- OUTSIDE RECORDS SUMMARY | 2021-12-28 14:58 | XMS_ITS | Encounter Summary ---
:1945 Author Organization [facility] [place] [address] Care Team Providers Name Role Phone Mellissa Garnett MD Primary Care Provider Reason for Visit Reason Onset Date Comments Appointment 04/28/2021 Encounter Details Date Type Department Care Team Description 04/28/2021 Telephone Orthopaedics at [facility] Nakia Segundo MD Appointment [facility] [place] [address] [place] [address] ORTHOPAEDIC SURGERY [phone] [place] [id number] (Wo rk) Social History Tobacco Use Types Packs/Day Years [...] on file documented as of this encounter Miscellaneous Notes Telephone Encounter - Karuna Padgett - 04/28/2021 10:22 AM EST Patient decided to push recall out another year. Will call if any problems in the mean time. Recall has been updated. documented in this encounter Plan of Treatment Not on filedocumented as of this encounter Visit Diagnoses Not on filedocumented in this encounter Care Teams Steel Layout Worker Relationship Specialty Start Date End Date Mellissa Garnett MD PCP - General 03/09/10 [address] [facility] [address] [place] [address] documented as of this encounter
--- OUTSIDE RECORDS SUMMARY | 2021-12-28 14:58 | XMS_ITS | Encounter Summary ---
:1945 [place] [address] Care Team Providers Name Role Phone Mellissa Garnett MD Primary Care Provider Reason for Visit Auth/Cert Specialty Diagnoses / Procedures Referred By Contact Refer red To Contact Diagnoses Shoulder arthritis RIGHT SHOULDER ARTHRITIS . Procedures PRO RECONSTR TOTAL SHOULDER IMPLANT @TOTAL SHOULDER ARTHROPLASTY (WRVU 22.13) MODIFIER KUN TM REVERSE MODIFIER BEACH CHAIR ZULY Referral ID Status Reason Start Date Expiration Date Visits Requ ested Visits Authorized [id number] 1 1 Encounter Details Date Type Department Care Team Description 08/28/2018 Anesthesia Event Main Operating Room Misbah Duran MD [facility] [place] [address] [place] [address] [phone] Anesthesia Record Procedure Summary Procedure Name Responsible Anesthesia Start Anesthesia Stop Anesthesiologist Time Time TOTAL SHOULDER Misbah Albright MD 08/28/18 1110 08/28/18 13 15 ARTHROPLASTY (WRVU 22.13) (Right Shoulder) Events Date Time Event Comment 08/28/2018 1110 AN Verify 1110 Start 1110 An Start Data 1118 An Induction 1122 An Intubation 1131 Anesthesia Ready 1141 Procedure Start 1315 Extubation/LMA Out 1315 an stop data 1315 Recovery or ICU Handoff Patient care was transferred to the destination unit staff after review of the patient's medica l history, current anesthetic/surgi jess status and plan, according to the Provider Handoff Checklist. 1315 Stop 1629 Name Total BUpivacaine 0.5% 20 mL fentaNYL 100 mcg IV Lidocaine 100 mg Propofol 200 mg Rocuronium 50 mg ePHEDrine 5 mg Ondansetron 8 mg Dexamethasone 4 mg Neostigmine 3 mg Glycopyrrolate 0.4 mg Tranexamic Acid 1,000 mg ceFAZolin (ANCEF) 2g in dextrose 5% 100 mL 2 g Propofol INF 258.12 mg PHENYLephrine INF 1,920 mcg Esmolol 40 mg lactated ringers infusion 700 mL Agents Name O2 Air N2O Sevoflurane (et) Blood No blood administrations on file. Lines, Drains, and Airways Type Details Placement Removal Brace/Orthotic/Orthos 08/28/18; 1200; shoulder 08/28/18 1200 by is immobilizer, right Lexie Lehman RN PIV 08/28/18; 0902; cephalic 08/28/18 0902 by 0759 by vein (lateral side of Yojana Reyna, Harrison banegas, Laureen Salas, arm), left; 20 gauge; RN RN intradermal injection, distraction; painful with flush; site care per policy/procedure, removed per policy/procedure, site symptomatic; 08/29/18; 0759 ETT Mask Ventilation: Easy 08/28/18 1127 by 08/28/18 1315 by (1); ETT Type: Cuffed, Glenn Gibbons MD Recor dGlenn MD Oral; ETT Size: 7 mm; Mac Blade: 3; Notes: Asleep, Pre-O2, Cricoid Pressure, Stylette; Attempts: 1; Laryngoscopy Grade: 1; ETT Placement Verified By: Auscultation, Capnometry, Visual; Secured at Teeth: 23 cm; Inserted by: D. Record Incision 08/28/18; 1147; 08/28/18 1147 by 12/13/21 1715 b y shoulder; 12/13/21 (Jen Gage, Lamonte Blair cleanup utility RA#[id number]); 1715 (LDA cleanup utility RA#[id number]) Drain/Device Site 08/28/18; 1237; Right; 08/28/18 1237 by 0700 by shoulder; collapsible Melvina Garcia, Lexie Lehman, RN closed device; 04/24 RN round silicone drain, cut to 10 holes.; 08/30/18; 0700 documented in this encounter Social History Tobacco Use Types Packs/Day Years [...] on file documented as of this encounter OR Notes Anesthesia Postprocedure Evaluation - Glenn Gibbons MD - 08/28/2018 1:27 PM EDT Department of Anesthesiology Post-procedure Note Patient: Julissa Etienne Procedure Summary Date: 08/28/18 Room / Location: [facility] MA[facility] OR Anesthesia Start: 1110 Anesthesia Stop: 1315 Procedures: @TOTAL SHOULDER ARTHROPLASTY (WRVU 22.13) (Right Shoulder) MODIFIER KUN TM REVERSE (N/A ) MODIFIER BEACH CHAIR SCHLEIN (N/A Shoulder) Diagnosis: (RIGHT SHOULDER ARTHRITIS) Surgeon: Nakia Segundo MD Responsible Provider: Misbah Albright MD Anesthesia Type: general ASA Status: 2 All Anesthesia Providers: Anesthesiologist: Misbah Albright MD Internal Control Analyst: Glenn Gibbons MD Vitals Value Taken Time BP 146/74 08/28/2018 1:17 PM Temp Pulse 86 08/28/2018 1:26 PM Resp 16 08/28/2018 1:26 PM SpO2 100 % 08/28/2018 1:26 PM Pain Level Vitals shown include unvalidated device data. Patient Location: Floor Level of Consciousness: Conscious but Sleepy Pain Management: Satisfactory Analgesia PONV: None Cardiovascular Status: At Baseline Respiratory Status: At Baseline and Supplemental O2 (NC or FM) Postoperative Fluid Status: Intravascular EUvolemia Possible Anesthetic Complications: NONE apparent at time of evaluation Final Primary Anesthesia Type: General (The anesthetic type performed was the same as planned.) Comments: Glenn Gibbons MD Anesthesia Procedure Notes - Lloyd Ceron MD - 08/28/2018 10:31 AM EDT Associated Order(s): Anesthesia Block Anesthesia Block Date/Time: 08/28/2018 10:32 AM Performed by: Lloyd Ceron MD Authorized by: Primo Omer MD Start Time: 08/28/2018 10:20 AM End Time: 08/28/2018 10:31 AM Patient Location: Block Room The patient was greeted; the risks and benefits of the procedure were reviewed. Indication: Post-op Pain Control Post-op pain management at the request of surgeon. Block Type: Interscalene nerve block Laterality: Right Position: Supine Prep: Chlorhexidine Skin Anesthetic: Lidocaine 1% dose: 3 [id number] 22 5 cm Ultrasound Guided: Live and in-plane Ultrasound guidance was used to identify the targeted neuronal structure. Ultrasound was also used to identify needle position and to identify tissue (bone, muscle, and blood vessels) to prevent inadvertent intraneural or intravascular needle placement and injection. The spread of local anesthetic was confirmed with live ultrasound imaging. Single-Shot: Single-shot BUpivacaine 0.5%, 20 mL no complications Resident/SEVERITY OF ILLNESS COORDINATOR:: Lloyd Ceron MD Fellow:: Arian Becker MD Attending Physician:: Primo Omer MD Transient paresthesia, resolved with repositioning. Negative aspiration. Anesthesia Preprocedure Evaluation - Glenn Gibbons MD - 08/27/2018 5:08 PM EDT Pre-Anesthesia Evaluation for: Julissa Darden Lowell a 73 y.o. female. Procedure(s): @TOTAL SHOULDER ARTHROPLASTY (WRVU 22.13) MODIFIER KUN TM REVERSE MODIFIER BEACH CHAIR ZULY Patient Active Problem List Diagnosis ??? Chronic pain in right shoulder ??? Shoulder arthritis ??? History of bladder cancer ??? Bladder cancer ??? Lumbar radicular pain Past Medical History: Diagnosis Date ??? Bladder cancer patient states ??? Cancer bladder ??? Chronic pain shoulder ??? Delayed emergence from anesthesia slow to wake ??? Motion sickness on a cruise ??? Post-operative nausea and vomiting when had bladder surgery-OK with hip & shoulder Past Surgical History: Procedure Laterality Date ??? JOINT REPLACEMENT left hip 2017 Social History Tobacco Use ??? Smoking status: Never Smoker ??? Smokeless tobacco: Never Used Substance Use Topics ??? Alcohol use: Never Frequency: Never Social History Substance and Sexual Activity Drug Use Never Allergies Allergen Reactions ??? Oxycodone [id number] Other (See Comments) went crazy Medications: MAR and/or home medications have been reviewed. Physical Exam: There were no vitals filed for this visit. There is no height or weight on file to calculate BMI. Airway Assessment: Mallampati: II TM distance: >3 FB Neck ROM: full Cardiovascular Assessment: Pulmonary Assessment: Dental Assessment: - normal exam Misc Assessment: Anesthesia Plan: ASA 2 general, with a(n) intravenous induction This is a 73-year-old 72.1 kg female presenting for right total shoulder arthroplasty with Dr. Segundo.She has a past medical history that is notable for carotid artery stenosis (listed in outside facility past medical history scanned document no comment on severity), bladder cancer, gastroesophageal reflux disease and asthma. Plan on nerve block per regional anesthesia service followed by general endotracheal anesthesia. Given unknown severity of carotid artery stenosis we will plan on possible arterial line for invasive blood pressure monitoring in the setting of beachchair positioning and 2 large bore IVs. Region - Other Informed Consent: Anesthetic plan and risks discussed with patient. Use of blood products discussed with patient who. Plan discussed with resident and attending. PAT Clinic Note documented in this encounter Plan of Treatment Not on filedocumented as of this encounter Procedures Procedure Name Priority Date/Time Associated Diagnosis Comme nts ANESTHESIA BLOCK Routine 08/28/2018 10:31 AM Resu lts for this EDT procedure are i n the results section. documented in this encounter Results Anesthesia Block (08/28/2018 10:31 AM EDT) Narrative Primo Omer MD - 08/28/2018 10:31 AM EDT Lloyd Ceron MD ? 08/28/2018 10:34 AM Anesthesia Block Date/Time: 08/28/2018 10:32 AM Performed by: Lloyd Ceron MD Authorized by: Primo Omer MD Start Time: ??08/28/2018 10:20 AM End Time: ??08/28/2018 10:31 AM Patient Location: ??Block Room The patient was greeted; the risks and b enefits of the procedure were reviewed. ?? Indication: ??Post-op Pain Control Post-op pain management at the request o f surgeon. ?? Block Type: ??Interscalene nerve block Laterality: ??Right Position: ??Supine Prep: ??Chlorhexidine Skin Anesthetic: ??Lidocaine 1% dose: ??3 K-[id number]-zkdxd 22 5 cm Ultrasound Guided: ??Live and in-plane Ultrasound guidance was used to identify the targeted neuronal structure. Ultrasound was also used to identify nee dle position and to identify tissue (bone, muscle, and blood vessels) to prevent inadvertent intraneural or intravascular needle plac ement and injection. The spread of local anesthetic was confirmed with live ultrasound imaging. ?? Single-Shot: ??Single-shot BUpivacaine 0.5%, 20 mL no complications ?? Resident/SEVERITY OF ILLNESS COORDINATOR:: ??Lloyd Ceron MD Fellow:: ??Arian Becker MD Attending Physician:: ??Primo Omer MD Transient paresthesia, resolved with re positioning. Negative aspiration. Primo Omer MD FLOOR CARE TECHNICIAN [facility] documented in this encounter Visit Diagnoses Not on filedocumented in this encounter Administered Medications Inactive Administered Medications - up to 3 most recent administrations Medication Order MAR Action Action Date Dose Rate Site BUpivacaine (PF) (MARCAINE) 0.5 % Given 08/28/2018 10:32 AM EDT 20 mLs (5 mg/mL) injection Starting on Mon08/28/18 at 1032, Until Mon08/28/18 at 1032, Anesthesia Intra-op, Routine ceFAZolin (ANCEF) 2g in dextrose 5% 100 mL Given 08/28/2018 11:31 AM EDT 2 g 2 g, Intravenous, EVERY 3 HOURS, 1 dose, First dose on Mon08/28/18 at 0915, Administer over 30 Minutes, Redose after 3 hours., Intra-Operative (Intra-Procedure), Indication for (Active or Suspected): Prophylaxis dexamethasone (DECADRON) injection Given 08/28/2018 11:30 AM EDT 4 mg PRN, Starting on Mon08/28/18 at 1130, Until Mon08/28/18 at 1315, Anesthesia Intra-op, Routine ePHEDrine 5 mg/mL multi-dose injection Given 08/28/2018 12:19 PM EDT 5 mg PRN, Starting on Mon08/28/18 at 1219, Until Mon08/28/18 at 1315, Anesthesia Intra-op, Routine esmolol (BREVIBLOC) injection Given 08/28/2018 12:09 PM EDT 10 mg PRN, Starting on Mon08/28/18 at 1135, Until Mon08/28/18 at 1315, Anesthesia Intra-op, Routine Given 08/28/2018 12:01 PM EDT 10 mg Given 08/28/2018 11:48 AM EDT 10 mg fentaNYL 50 mcg/mL multi-dose injection Given 08/28/2018 11:24 AM EDT 50 mcg PRN, Starting on Mon08/28/18 at 1118, Until Mon08/28/18 at 1315, Anesthesia Intra-op, Routine Given 08/28/2018 11:18 AM EDT 50 mcg glycopyrrolate (ROBINUL) multi-dose Given 08/28/2018 12:38 PM ED T 0.4 mg injection PRN, Starting on Mon08/28/18 at 1238, Until Mon08/28/18 at 1315, Anesthesia Intra-op, Routine lactated ringers infusion New Bag 08/28/2018 11:10 AM EDT 1,000 mL, at 100 mL/hr, Intravenous, CONTINUOUS, Starting on Mon08/28/18 at 0915, Until Mon08/28/18 at 1331, Day of Surgery (Day of Procedure) New Bag 08/28/2018 9:02 AM EDT 1,000 mLs 100 mL/hr lidocaine (PF) (XYLOCAINE) 100 mg/5 mL (2 %) Given 11:18 AM EDT 100 mg injection PRN, Starting on Mon08/28/18 at 1118, Until Mon08/28/18 at 1315, Anesthesia Intra-op, Routine neostigmine (BLOXIVERZ) injection Given 08/28/2018 12:38 PM EDT 3 mg PRN, Starting on Mon08/28/18 at 1238, Until Mon08/28/18 at 1315, Anesthesia Intra-op, Routine ondansetron (ZOFRAN) injection Given 08/28/2018 12:38 PM EDT 4 mg PRN, Starting on Mon08/28/18 at 1145, Until Mon08/28/18 at 1315, Anesthesia Intra-op, Routine Given 08/28/2018 11:45 AM EDT 4 mg PHENYLephrine Rate/Dose Change 08/28/2018 12:45 10 mcg/min 7.5 mL/hr (TRISTAN-SYNEPHRINE) 20 mg in PM EDT sodium chloride 250 mL (standard ADULT & Pedi greater than 20kg) infusion CONTINUOUS PRN, Starting on Mon08/28/18 at 1116, Until Mon08/28/18 at 1315, Anesthesia Intra-op, Routine Rate/Dose Change 08/28/2018 12:39 PM EDT 20 mcg/min 15 mL/hr Rate/Dose Change 08/28/2018 12:19 PM EDT 30 mcg/min 22.5 mL/hr propofol (DIPRIVAN) 10 mg/mL bolus injection Given 11:21 AM EDT 50 mg (Anesthesia) PRN, Starting on Mon08/28/18 at 1118, Until Mon08/28/18 at 1315, Anesthesia Intra-op Given 08/28/2018 11:18 AM EDT 150 mg propofol (DIPRIVAN) Rate/Dose Change 08/28/2018 12:50 10 mcg/kg/min 4 .3 mL/hr infusion PM EDT CONTINUOUS PRN, Starting on Mon08/28/18 at 1116, Until Mon08/28/18 at 1315, Anesthesia Intra-op, Routine Rate/Dose Change 08/28/2018 12:39 PM EDT 20 mcg/kg/min 8.7 mL/hr New Bag 08/28/2018 11:16 AM EDT 40 mcg/kg/min 17.3 mL/hr rocuronium (ZEMURON) multi-dose injectio n Given 08/28/2018 11:18 AM EDT 50 mg PRN, Starting on Mon08/28/18 at 1118, Until Mon08/28/18 at 1315, Anesthesia Intra-op, Routine tranexamic acid (CYKLOKAPRON) 100 mg/mL Given 08/28/2018 11:32 A M EDT 1,000 mg bolus injection (Anesthesia) PRN, Starting on Mon08/28/18 at 1132, Until Mon08/28/18 at 1315, Anesthesia Intra-op, Routine documented in this encounter Care Teams Psychiatrist Relationship Specialty Start Date End Date Mellissa Garnett MD PCP - General 03/09/[address] [place] [address] documented as of this encounter
--- OUTSIDE RECORDS SUMMARY | 2021-12-28 14:58 | XMS_ITS | Encounter Summary ---
:1945 Author Organization [facility] [place] [address] Care Team Providers Name Role Phone Mellissa Garnett MD Primary Care Provider Encounter Details Date Type Department Care Team Description 10/05/2015 [facility] [place] [address] DIAGNOSTIC RADIOLOGY [phone] [place] [id number] (Wo rk) Social History Tobacco Use Types [...] Name Priority Date/Time Associated Diagnosis Comme nts FILM LIBRARY Routine 10/05/2015 12:00 AM Screening Results for this STORAGE ONLY MAMMO EDT procedure are in the results section. documented in this encounter Results Film Library- Storage only Mammo (10/05/2015 12:00 AM EDT) Specimen (Source) Anatomical Location Collection Method / Collectio n Time Received Time / Laterality Volume Narrative RAD - 12/30/2015 3:52 PM EDT This exam is for storage only and is aut o-finalizing. Jen Maurice MD IMG FILM LIBRARY ORDERABLES Performing Organization Address City/State/ZIP Code Phon e Number [place], [place] documented in this encounter Visit Diagnoses Diagnosis Screening Screening for unspecified condition documented in this encounter Care Teams Space Physicist Relationship Specialty Start Date End Date Mellissa Garnett MD PCP - General 03/09/[address] [place] [address] documented as of this encounter
--- OUTSIDE RECORDS SUMMARY | 2021-12-28 14:58 | XMS_ITS | Encounter Summary ---
:1945 Author Organization [facility] [place] [address] Care Team Providers Name Role Phone Mellissa Garnett MD Primary Care Provider Encounter Details Date Type Department Care Team Description 07/10/2018 Hospital Encounter Mammography/DXA at Mellissa Garnett , Visit for screening [facility] MD mammogram [address] [id number] Social History Tobacco Use Types Packs/Day Years [...] Sig Dispensed Refills Start Date End Date citalopram (CELEXA) 20 mg Take 20 mg by mouth 0 Tablet daily. aspirin 81 mg Tablet, Take 81 mg by mouth 0 08/16/2018 Chewable daily. Cholecalciferol, Vitamin Take 5,000 Units by 0 10/11/2018 D3, (VITAMIN D) 1,000 mouth daily. unit Cap VITAMIN E ACETATE 0 01/20/2010 019 (VITAMIN E ORAL) documented as of this encounter Plan of Treatment Not on filedocumented as of this encounter Procedures Procedure Name Priority Date/Time Associated Diagnosis Comme nts MAMMO SCREENING CAD Routine 07/10/2018 9:21 AM Visit for dai bone Results for this AND KATRIN BILATERAL EDT mammogram procedure are in the results section. documented in this encounter Results Mammo Screening Cad and Katrin Bilateral (07/10/2018 9:21 AM EDT) Anatomical Region Laterality Modality Breast Bilateral Mammography Specimen (Source) Anatomical Location Collection Method / Collectio n Time Received Time / Laterality Volume Narrative 07/10/2018 9:29 AM EDT BILATERAL MAMMOGRAPHY REASON FOR EXAM: Screening TECHNIQUE: CC and MLO views were obtaine d of each breast using standard 2-D mammography as well as 3-D tomosynth esis. Computer aided detection was used. This is compared with prior images . FINDINGS: There are scattered areas of f ibroglandular density. There are no suspicious microcalcifications, noel s, or areas of distortion. The pattern is stable. CONCLUSION: No mammographic evidence of malignancy. RECOMMENDATION: Medical organizations ag ree that annual screening mammography beginning at age 40 saves th e most lives. The risks of screening are negligible compared to dyi ng from breast cancer or suffering from more aggressive treatment required when detected at a later stage. No woman is at low risk for breast cancer. Some women, because of their family history, a genetic tendency, or c ertain other factors, should be screened with breast MRI along with mamm ograms. (The number of women who fall into this category is very small). The patient and health care provider should discuss the patient hist ory and decide if earlier screening and breast MRI are appropriate . Screening should continue as long as a woman is in good health and is expected to live 10 years or longer. Screening mammography may not de tect 10-15% of breast cancers. Women should report any breast changes t o a health care provider right away. A result letter has been sent to this yvonne frazier by [facility]. BIRADS CATEGORY 1: NEGATIVE Mellissa Garnett MD IMG MAMMO ORDERABLES documented in this encounter Visit Diagnoses Diagnosis Visit for screening mammogram Other screening mammogram documented in this encounter Care Teams Rn Resource Nurse Relationship Specialty Start Date End Date Mellissa Garnett MD PCP - General 03/09/[address] [place] [address] documented as of this encounter
--- OUTSIDE RECORDS SUMMARY | 2021-12-28 14:58 | XMS_ITS | Encounter Summary ---
:1945 Author Organization [place] [address] Care Team Providers Name Role Phone Mellissa Garnett MD Primary Care Provider Encounter Details Date Type Department Care Team Description 11/07/2017 Office [place] [facility] [place]ultz History of bladder [facility] [place] [address] UROLOGY DEPT. [phone] [place], [place] [address] (Wo rk) Social History Tobacco Use Types [...] Sign Reading Time Taken Comments Blood Pressure 132/81 11/07/2017 1:30 PM EDT Pulse 79 11/07/2017 1:30 PM EDT Temperature - - Respiratory Rate - - Oxygen Saturation 97% 11/07/2017 1:30 PM EDT Inhaled Oxygen Concentration - - Weight - - Height - - Body Mass Index - - documented in this encounter Patient Instructions Patient InstructionsMaliha Miranda RN - 11/07/2017 1:20 PM EDT Instructions following Cystoscopy Activity: As tolerated by your comfort level. Fluids: You should increase your water today. Avoid coffee, tea and cola. You do not need to exceed 64 ounces of water today. Urination: You will likely have a small amount of blood in your urine for the next several days. This is normal; however, if you are passing large amounts of blood clots or are unable to void please call our office at [phone] before 5PM or [phone] after hours. Please call if: * you have copious blood in your urine * fevers greater than 101.3 F * you are unable to void The number for questions is [phone] before 5 PM weekdays and [phone] after 5 PM and weekends. Follow-up: As needed documented in this encounter Progress Notes Maliha Schultz MD - 11/07/2017 1:20 PM EDT . This 72 year old woman presents for cystoscopy because of a history of bladder tumors. Her first andlast tumor was May 30 1994 when she had a Gr II/IV tumor without invasion. (TA). She is now having yearly cystoscopy. She has no bladder symptoms although at times she feels like she does not empty well. She has had no hematuria in the last year. She feels well. She is enjoying penitentiary/ On exam: Well looking. Abd: soft, non tender, no masses. : ext. Genitalia normal. Cysto: negative - see note Imp: pt without recurrence of bladder tumor - doing well. Plan: repeat cytology Today Will plan to discharge from clinic given her low grade/low stage and no recurrence I should see her back if she ever has gross hematuria or significant micr hematuria. documented in this encounter Procedure Notes Maliha Schultz MD - 11/07/2017 1:20 PM EDTAssociated Order(s): CYSTOSCOPY Pre-Procedure Diagnose(s): History of bladder cancer Post-Procedure Diagnose(s): History of bladder cancer Procedure: Flexible cystoscopy. Surgeon: Marion Pre-Operative Diagnosis: History of bladder cancer Post-Operative Diagnosis: History of bladder cancer Complications: None. Procedure: Urinalysis revealed no evidence of an active urinary tract infection. After informed consent was obtained and the external genitalia appropriately had been cleaned and draped lidocaine was instilled into the urethra to achieve topical anesthesia. The flexible telescope was inserted into the urethra and advanced into the bladder under direct vision. The bladder was systematically inspected through 360 degrees with the flexible telescope including retroversion. Anterior urethroscopy was normal. The ureteral orifices were in normal position and effluxed clear urine. The bladder was normal. There were no bladder tumors, mucosal abnormalities or bladder stones. The cystoscope was removed. The patient tolerated the procedure without difficulty. There were no complications. The patient was given 1 cipro prior to the procedure. documented in this encounter Plan of Treatment Not on filedocumented as of this encounter Procedures Procedure Name Priority Date/Time Associated Comments Diagnosis CYSTOSCOPY Routine 11/11/2017 11:18 History of bladder Resul ts for this AM EDT cancer procedure are i n the results section. NON-LABORER WRECKING AND SALVAGING FINAL REPORT Routine 11/07/2017 1:49 PM R esults for this EDT procedure are i n the results section. CYTOPATHOLOGY Routine 11/07/2017 1:49 PM History of bladder Re sults for this NON-GYNECOLOGICAL EDT cancer procedure are in the results section. documented in this encounter Results Cystoscopy (11/11/2017 11:18 AM EDT) Narrative Maliha Schultz MD - 11/11/2017 11:18 AM EDT Maliha Schultz MD ? 11/11/2017 11:18 AM Procedure: Flexible cystoscopy. Surgeon: Marion Pre-Operative Diagnosis: ??History of bl adder cancer Post-Operative Diagnosis: History of linda dder cancer Complications: None. Procedure: Urinalysis revealed no evidence of an ac tive urinary tract infection. After informed consent was obtained and the external genitalia appropriately had been cleaned and drape d lidocaine was instilled into the urethra to achieve topical anes thesia. The flexible telescope was inserted into the urethra and advanced into the bladder under direct vision. Th e bladder was systematically inspected through 360 deg dave with the flexible telescope including retroversion. Anterior urethroscopy was normal. The ureteral orifices were in normal pos ition and effluxed clear urine. The bladder was normal. There were no bl adder tumors, ??mucosal abnormalities or bladder stones. The cystoscope was removed. The patient tolerated the procedure without difficulty. There were no complications. The patient ??was given 1 cipro prior to the procedure. Maliha Schultz MD PROCEDURE ORDERABLES Non-Registered Respiratory Therapist Final Report (11/07/2017 1:49 PM EDT) Component Value Ref Test Analysis Performed At [facility] Range Method Time Signature Non-Registered Respiratory Therapist Final [id number] ? Location: [address] [place] [address] The signing pathologist has (i) examined the relevant preparation(s) for the [facility] specimen(s) and (ii) rendered or confirmed the diagnosis(es) . HOSPITAL LABORATORY . ? No n-Registered Respiratory Therapist Final DIAGNOSIS Negative for High Grade Urothelial Carcinoma See discussion. Electronically signed by: ??Daly VALENCIA, Chilo Paris Verified: ??11/09/2017 ?Pathologist Performed at: ??-[facility] [place], [place], [place] DISCUSSION Urine, voided: Urothelial cells, squamous c ells, red blood cells, ?white blood cells, ??and crystals are present. Reference: Abi DL, Lilia cik EM, Donnie KINGI. The Aminata System for Reporting Urinary Cytology. Bates: Palomares; 2016. CLINICAL INFORMATION Specimen Source : Urine, voided Pertinent Clinical Data and Significant Therapy: Hematuria Clinical Impression : History of bladder cancer Pertinent Radiologic Findings ??: (not provided) Gross Description: Received ??in 50% ETOH, ??ap proximately 70 mL total volume of ??clear, yellow fluid, with light flecks. Total Preparation: Liquid-Based Prep 1. Specimen (Source) Anatomical Collection Method Collection Time Re ceived Time Location / / Volume Laterality 11/07/2017 1:49 PM EDT Maliha Schultz MD PATHOLOGY/CYTOLOGY ORDERABLE S Performing Organization Address City/[facility]/ZIP [place] [address] Cytopathology Non-Gynecological (11/07/2017 1:49 PM EDT) Specimen Anatomical Collection Method Collection Time Receive d Time (Source) Location / / Volume Laterality AP Specimen 11/07/2017 1:49 PM 201 8 1:49 EDT PM EDT Narrative [facility] - 11/07/2017 1:49 PM EDT Specimen requisition ordered. ??Separate Pathology report to follow Maliha Schultz MD PATHOLOGY/CYTOLOGY ORDERABLE S Performing Organization Address City/[facility] [place] [address] documented in this encounter Visit Diagnoses Diagnosis History of bladder cancer Personal history of malignant neoplasm o f bladder documented in this encounter Care Teams Gunner'S Mate G Relationship Specialty Start Date End Date Mellissa Garnett MD PCP - General 03/09/[address] [place] [address] documented as of this encounter
--- OUTSIDE RECORDS SUMMARY | 2021-12-28 14:58 | XMS_ITS | Encounter Summary ---
:1945 Author Organization [facility] [address] Care Team Providers Name Role Phone Mellissa Garnett MD Primary Care Provider Encounter Details Date Type Department Care Team Description 03/08/2017 Hospital Encounter Mammography at [facility] Mellissa Garnett, Screening for [facility] MD breast cancer Drive [address] [place] [address] [address] [address] [place], [place] [phone] Social History Tobacco Use Types Packs/Day Years [...] Diagnosis Comme nts MAMMO SCREENING CAD Routine 03/08/2017 9:11 AM Screening for b reast Results for this AND KATRIN BILATERAL EST cancer procedure are in the results section. documented in this encounter Results Mammo Screen CAD and Katrin Bilat (Generic) (03/08/2017 9:11 AM EST) Anatomical Region Laterality Modality Breast Bilateral Mammography Specimen (Source) Anatomical Location Collection Method / Collectio n Time Received Time / Laterality Volume Narrative 03/08/2017 10:51 AM EST BILATERAL MAMMOGRAPHY REASON FOR EXAM: Screening TECHNIQUE: CC and MLO views were obtaine d of each breast using standard 2-D mammography as well as 3-D tomosynthesis . Computer aided detection was used. Comparison: This is compared with prior images. FINDINGS: There are scattered areas of f ibroglandular density. There are no suspicious microcalcifications, masses, or areas of distortion. The pattern is stable. Stable bilateral and benign-appe aring focal asymmetries. CONCLUSION: No mammographic evidence of malignancy. RECOMMENDATION: Routine screening. A result letter has been sent to this pa tient by the [facility]. BIRADS CATEGORY 2: Benign findings. * ??The [employer] an d The Society [...] earlier screening and breast MRI are appropriate. Mellissa Garnett MD IMG MAMMO ORDERABLES documented in this encounter Visit Diagnoses Diagnosis Screening for breast cancer Breast screening, unspecified documented in this encounter Care Teams Hot Metal Mixer Operator Relationship Specialty Start Date End Date Mellissa Garnett MD PCP - General 03/09/[address] [place] [address] [address] [facility] [address] [place] [address] documented as of this encounter
--- OUTSIDE RECORDS SUMMARY | 2021-12-28 14:58 | XMS_ITS | Encounter Summary ---
:1945 Author Organization [facility] Address [address] [place] [address] Care Team Providers Name Role Phone Mellissa Garnett MD Primary Care Provider Reason for Visit Reason Comments Aftercare Of [employer] RIGHT TSA DOS: 08/28/18 Encounter Details Date Type Department Care Team Description 10/11/2018 Office Visit Orthopaedics at [facility] [place] Nakia Segundo, Fiona post [facility] replacement of right [address] [place] [address] CENTER [phone] ORTHOPAEDIC SURGERY [place], [place] [address] Social History Tobacco Use Types [...] Sign Reading Time Taken Comments Blood Pressure 139/69 10/11/2018 8:35 AM EDT Pulse 69 10/11/2018 8:35 AM EDT Temperature - - Respiratory Rate - - Oxygen Saturation - - Inhaled Oxygen Concentration - - Weight 71.2 kg (157 lb) 10/11/2018 8:35 AM EDT verbal Height 157.5 cm (5' 2) 10/11/2018 8:35 AM EDT verbal Body Mass Index 28.72 10/11/2018 8:35 AM EDT documented in this encounter Progress Notes Nakia Segundo MD - 10/11/2018 9:05 AM EDT Julissa Etienne returns today for follow up right reverse total shoulder replacement. She is doing well overall. She does have some soreness in the deltoid muscle as well as the trapezius. She does not have any point tenderness over the posterior scapular spine to palpation. She complains of occasional numbness in the median distribution when in the sling. She occasionally has some spasms in the armshe describes more as a twitch. She denies any instability or problems with the prosthesis. She denies any problems with the incision or signs of infection. On physical examination, the patient is alert, oriented, and in no apparent distress. Incision is well-healed with no erythema, edema, warmth, tenderness, or drainage. Neurovascular examis completely intact in the radial, median, ulnar, axillary, and musculocutaneous nerve distributions. Gentle passive motion reveals no crepitus or problems with the prosthesis. New studies: X-rays were reviewed. No periprosthetic fractures, loosening, instability, or other problems are seen. Impression: Doing well 6 weeks status post her reverse. We talked about home active assisted supine forward elevation exercises. She will work on these on her own and with her . Return to clinic6 weeks for follow-up. This note was created with [employer] voice recognition software. documented in this encounter Plan of Treatment Not on filedocumented as of this encounter Visit Diagnoses Diagnosis Status post replacement of right shoulde r joint documented in this encounter Care Teams Seasonal Sales Associate Relationship Specialty Start Date End Date Mellissa Garnett MD PCP - General 03/09/[address] [place] [address] documented as of this encounter
--- OUTSIDE RECORDS SUMMARY | 2021-12-28 14:58 | XMS_ITS | Encounter Summary ---
:1945 Author Organization [place] [place] [address] Care Team Providers Name Role Phone Mellissa Garnett MD Primary Care Provider Encounter Details Date Type Department Care Team Description 08/19/2016 Office Visit Urology at [facility] [place] Maliha Schultz Malignant neoplasm of urinar y bladder, unspecified site; [facility] MD [address] [address] UROLOGY DEPT. [phone] [place], [place] [address] (Wo rk) Social History Tobacco [...] Sign Reading Time Taken Comments Blood Pressure 140/64 08/19/2016 2:41 PM EDT Pulse 98 08/19/2016 2:41 PM EDT Temperature 36.7 ??C (98 ??F) 08/19/2016 2:41 PM EDT Respiratory Rate - - Oxygen Saturation 94% 08/19/2016 2:41 PM EDT Inhaled Oxygen Concentration - - Weight - - Height - - Body Mass Index - - documented in this encounter Patient Instructions Patient InstructionsMaliha Miranda RN - 08/19/2016 2:20 PM EDT Instructions following Cystoscopy Activity: As [...] to void please call our office at [phone] before 5PM or [phone] after hours. Please call if: * you have copious blood in your urine * fevers greater than 101.3 F * you are unable to void The number for questions is [phone] before 5 PM weekdays and [phone] after 5 PM and weekends. Follow-up: 1 year for follow up cystoscopy documented in this encounter Progress Notes Maliha Schultz MD - 08/19/2016 2:20 PM EDT . This 71 year old woman presents for cystoscopy because of a history of bladder tumors. Her first andlast tumor was May 30 1994 when she had a Gr II/IV tumor without invasion. (TA). She is now having yearly cystoscopy. She has no bladder symptoms although she feels like she does not empty well. She also complains thather urine smells. She has had no hematuria since last seen one year ago. She feels well. She is enjoying penitentiary/ On exam: Well looking. Abd: soft, non tender, no masses. : ext. Genitalia normal. Cysto: negative - see note Imp: pt without recurrence of bladder tumor - doing well. Plan: repeat cytology and repeat cysto in 1 yr, sooner if she has hematuria. documented in this encounter Procedure Notes Maliha Schultz MD - 08/19/2016 2:20 PM EDTAssociated Order(s): CYSTOSCOPY Pre-Procedure Diagnose(s): Malignant neoplasm of urinary bladder, unspecified site Post-Procedure Diagnose(s): Malignant neoplasm of urinary bladder, unspecified site Procedure: Flexible cystoscopy. Surgeon: Marion Pre-Operative Diagnosis: [...] Priority Date/Time Associated Comments Diagnosis CYSTOSCOPY Routine 08/24/2016 4:09 PM Malignant neoplasm Res ults for this EDT of urinary bladder, procedur e are in unspecified site the results section. NON-BURSAR FINAL REPORT Routine 08/19/2016 3:04 PM R esults for this EDT procedure are i n the results section. URINE CULTURE Routine 08/19/2016 3:04 PM Hematuria Results for this EDT procedure are i n the results section. CYTOPATHOLOGY Routine 08/19/2016 3:04 PM Hematuria Results for this NON-GYNECOLOGICAL EDT procedure are in the results section. documented in this encounter Results Cystoscopy (08/24/2016 4:09 PM EDT) Narrative Maliha Schultz MD - 08/24/2016 4:09 PM EDT Maliha Schultz MD ? 08/24/2016 ??4:09 PM Procedure: Flexible cystoscopy. Surgeon: Marion Pre-Operative Diagnosis: [...] the procedure. Maliha Schultz MD PROCEDURE ORDERABLES Non-Grinder Machine Setter Final Report (08/19/2016 3:04 PM EDT) Component Value Ref Test Analysis Performed At [facility] Range Method Time Signature Non-Grinder Machine Setter Final [id number] ?Location: [address] [place] [address] The signing pathologist has (i) examined the relevant preparation(s) for the [facility] specimen(s) and (ii) rendered or confirmed the diagnosis(es) . HOSPITAL LABORATORY . ? No n-Grinder Machine Setter Final DIAGNOSIS Negative for Malignancy Electronically signed by: ??Aubree Deleon MD Verified: ??08/23/2016 ?Pathologist DISCUSSION Urine, Voided: Urothelial cells, squamous cells, bacteria, and crystals are present. CLINICAL INFORMATION Specimen Source : Urine, Voided Pertinent Clinical Data and Significant Therapy: Hematuria Clinical Impression : Bladder cancer Pertinent Radiologic Findings ??: (not provided) Gross Description: Received ??in 50% ETOH, ??ap proximately 60 mL total volume of ??cloudy, yellow fluid. Total Preparation: Liquid Based Prep 1. Specimen (Source) Anatomical Collection Method Collection Time Re ceived Time Location / / Volume Laterality 08/19/2016 3:04 PM EDT Maliha Schultz MD PATHOLOGY/CYTOLOGY ORDERABLE S Performing Organization Address City/[facility]/ZIP Code Phon e Number [address] (ABNORMAL) Urine culture Clean Catch Urine (08/19/2016 3:04 PM EDT) [facility] Method Time Signature Urine Culture 10,000-49,000 cfu/ml mixed mucosal kolton [place] Note: Culture shows multiple bacterial species suggesting mu cosal BERRY contamination. If symptoms c ontinue to indicate urinary tract infection, submit [facility] a new specimen. HOSPITAL (A) LABORATORY Specimen (Source) Anatomical Collection Method Collection Time Re ceived Time Location / / Volume Laterality Urine specimen 08/19/2016 3:04 08/19/2016 4:54 obtained by clean PM EDT PM EDT catch procedure (specimen) Resulting Agency Comment Spec In Lab Maliha Schultz MD MICROBIOLOGY - GENERAL ORDER SANJIV Performing Organization Address City/[facility]/ZIP [facility] [place] [address] Cytopathology Non-Gynecological (08/19/2016 3:04 PM EDT) Specimen Anatomical Collection Method Collection Time Receive d Time (Source) Location / / Volume Laterality AP Specimen 08/19/2016 3:04 PM 7 3:04 EDT PM EDT Narrative [facility] - 08/19/2016 3:04 PM EDT Specimen requisition ordered. ??Separate Pathology report to follow Maliha Schultz MD PATHOLOGY/CYTOLOGY ORDERABLE S Performing Organization Address City/[facility]/[place] [address] documented in this encounter Visit Diagnoses Diagnosis Malignant neoplasm of urinary bladder, u nspecified site Hematuria Hematuria, unspecified documented in this encounter Care Teams Finish Off Operator Relationship Specialty Start Date End Date Mellissa Garnett MD PCP - General 03/09/[address] [place] [address] documented as of this encounter
--- OUTSIDE RECORDS SUMMARY | 2021-12-28 14:58 | XMS_ITS | Encounter Summary ---
:1945 Author Organization [facility] Address [facility] [place] [address] Care Team Providers Name Role Phone Mellissa Garnett MD Primary Care Provider Encounter Details Date Type Department Care Team Description 06/19/2015 Notes Only Urology at [facility] Maliha Schultz, [facility] [place] [address] [facility] [phone] UROLOGY DEPT. [place], [place] [address] (Wo rk) Social History Tobacco [...] on file documented as of this encounter Progress Notes Yelena Danielle LPN - 06/19/2015 12:21 PM EST documented in this encounter Plan of Treatment Not on filedocumented as of this encounter Visit Diagnoses Not on filedocumented in this encounter Care Teams Tap And Die Maker Technician Relationship Specialty Start Date End Date Mellissa Garnett MD PCP - General 03/09/[address] [place] [address] documented as of this encounter
--- OUTSIDE RECORDS SUMMARY | 2021-12-28 14:58 | XMS_ITS | Encounter Summary ---
:1945 Author Organization [facility] Address [address] [place] [address] Care Team Providers Name Role Phone Mellissa Garnett MD Primary Care Provider Encounter Details Date Type Department Care Team Description 11/03/2017 Ancillary Procedure Radiology Library at Josue Segundo MD [facility] [place] [address] [place] [id number] [phone] (Wo rk) Social History Tobacco Use Types [...] Associated Diagnosis Comme nts FILM LIBRARY Routine 11/03/2017 12:00 AM Results for this STORAGE ONLY MR EDT procedure ar e in SHOULDER the results section. documented in this encounter Results Film Library- Storage Only MR Shoulder (11/03/2017 12:00 AM EDT) Specimen (Source) Anatomical Location Collection Method / Collectio n Time Received Time / Laterality Volume Narrative [facility] - 07/12/2018 8:42 PM EDT This exam is auto-finalizing. It's purpo se is for storage only. Nakia Segundo MD G FILM LIBRARY ORDERABLES Performing Organization Address City/State/ZIP Code Phon e Number [facility] DH [place], [place] documented in this encounter Visit Diagnoses Not on filedocumented in this encounter Care Teams Orthotics Prosthetics Assistant Relationship Specialty Start Date End Date Mellissa Garnett MD PCP - General 03/09/[address] [place] [address] documented as of this encounter
--- OUTSIDE RECORDS SUMMARY | 2021-12-28 14:58 | XMS_ITS | Encounter Summary ---
:1945 Author Organization [place] [address] Care Team Providers Name Role Phone Mellissa Garnett MD Primary Care Provider Encounter Details Date Type Department Care Team Description 08/22/2016 Notes Only Urology at [facility] Mary Canchola MD [facility] [place] [address] UROLOGY DEPT [phone] [place], [place] [address] (Wo rk) Social History Tobacco [...] documented as of this encounter Progress Notes Ileana Coats LNA - 08/22/2016 8:31 AM EDT Urine culture on 08/19/2016 is a no treat per Dr. Canchola. Urine contamination letter will be sent. Urine Culture (Abnormal) 10,000-49,000 cfu/ml mixed mucosal kolton Note: Culture shows multiple bacterial species suggesting mucosal contamination. If symptoms continue to indicate urinary tract infection, submit a new specimen. documented in this encounter Plan of Treatment Not on filedocumented as of this encounter Visit Diagnoses Not on filedocumented in this encounter Care Teams Entry Level Recruiter Relationship Specialty Start Date End Date Mellissa Garnett MD PCP - General 03/09/[address] [place] [address] documented as of this encounter
--- OUTSIDE RECORDS SUMMARY | 2021-12-28 14:58 | XMS_ITS | Encounter Summary ---
:1945 Author Organization [facility] [place] [address] Care Team Providers Name Role Phone Mellissa Garnett MD Primary Care Provider Reason for Visit Reason Comments [facility] RIGHT TSA DOS: 08/28/18 Encounter Details Date Type Department Care Team Description 11/22/2018 Office Visit Orthopaedics at [facility] Nakia Segundo, s/rae R RTSA ( [facility] MD Segundo), 08/28/18 [place] [address] [place] [address] ORTHOPAEDIC SURGERY [place] [address] Social History Tobacco Use Types Packs/Day Years [...] Pulse 80 11/22/2018 3:16 PM EDT Temperature - - Respiratory Rate - - Oxygen Saturation - - Inhaled Oxygen Concentration - - Weight 71.2 kg (157 lb) 11/22/2018 3:16 PM EDT verbal Height 157.5 cm (5' 2) 11/22/2018 3:16 PM EDT verbal Body Mass Index 28.72 11/22/2018 3:16 PM EDT documented in this encounter Progress Notes Pamella Delgado MD - 11/22/2018 3:25 PM EDT PATIENT NAME: Julissa Etienne DATE OF VISIT: 11/22/18 DATE OF SURGERY/INJURY: 08/28/18 PROCEDURE: Right reverse TSA CHIEF COMPLAINT: Scheduled postoperative 3-month follow-up HPI: Patient is a very pleasant 73-year-old female who presents to clinic now approximately 3 months status post a right reverse total shoulder. The patient notes she has been doing very well. She does not have pain every day. She takes Tylenol or ibuprofen occasionally for some discomfort. She does note that she has had intermittent swelling in the whole arm that improves sporadically. The patient has been working on some gentle passive range of motion and feels she is doing well. She has not done any formal physical therapy but is working on the exercises at home for stretching. She denies any fevers,chills, chest pain. She does note that she has had some areas of occasional spitting of sutures but t hese have healed over nicely. PMH: Medications and allergies as reviewed in [facility] OBJECTIVE: Most Recent Vitals: 11/22/18 1516 BP: 135/79 Pulse: 80 Exam: General: NAD, well appearing Right shoulder exam: Incision is well-healed without erythema or edema. There are 2 areas of reaction to suture that are healed over without this. Active forward flexion to about 95 degrees. ??Active Abduction to 85 degrees Skin is warm, dry and well perfused. Axillary, radial, ulna and median neuro- motor intact. Normal sensory exam distally. Hand well perfused, distal pulses are 2+ and equal. Radiology: X-rays of the right shoulder were personally reviewed and demonstrate a reverse total shoulder hardware intact. No evidence of acute complication. ASSESSMENT and PLAN: 73 y.o. female is here for her approximately 3-month postoperative scheduled follow-up. The patient reports she has been doing well. Her pain continues to improve. She does have occasional swelling which has improved over the past few weeks. We are pleased to see that the patient is doing so well postoperatively. She can continue with the work on stretching as well as some gentle physical therapy at home. She notes that she has bands to work on range of motion particularly forward flexion and abduction. We will plan to see the patient back for her one-year postoperative anniversary in August 2019. We discussed that she can call back if there are any questions or concerns. All questions were answered. This note was recorded with [employer] Voice-recognition Software, please excuse any mis-wording. Pamella Delgado MD Attending Addendum: The preceding portion of this note was written by Dr. Delgado. I personally saw and evaluated the patient as well and I agree with the assessment and plan documented above. Nakia Segundo M.D., M.S. Hydrological Technical Officer of Orthopaedic Surgery Shoulder, Elbow, and Sports Medicine Department [place] [address] documented in this encounter Plan of Treatment Not on filedocumented as of this encounter Visit Diagnoses Diagnosis s/p R RTSA (Dr. Segundo), 08/28/18 documented in this encounter Care Teams Bread Distributor Relationship Specialty Start Date End Date Mellissa Garnett MD PCP - General 03/09/[address] [place] [address] documented as of this encounter
--- OUTSIDE RECORDS SUMMARY | 2021-12-28 14:58 | XMS_ITS | Encounter Summary ---
:1945 Author Organization [facility] [place] [address] Care Team Providers Name Role Phone Mellissa Garnett MD Primary Care Provider Encounter Details Date Type Department Care Team Description 01/14/2016 Hospital Encounter Radiology Library at [facility], Joleen Briones cca [facility] [place] [address] DIAGNOSTIC RADIOLOGY [phone] [place] [id number] (Wo rk) Social History Tobacco Use Types [...] Name Priority Date/Time Associated Diagnosis Comme nts REQUEST FOR 2ND Routine 01/14/2016 11:18 AM Pain Resul ts for this READ MAMMO EDT procedure are i n the results section. documented in this encounter Results Request for 2nd read Mammo (01/14/2016 11:18 AM EDT) Anatomical Region Laterality Modality Computed Tomography Specimen (Source) Anatomical Location Collection Method / Collectio n Time Received Time / Laterality Volume Impressions 01/19/2016 8:20 AM EDT Limited/incomplete imaging, partial imaging of the left breast without follow-up diagnostic views available for interpret ation, questionable focal asymmetry of the left breast, retroareolar. Outside s tatic ultrasound images with areas of shadowing, marked retroareolar. RECOMMENDATION: Patient will be contacted for additional diagnostic imaging of the left breast, 2-D/3-D mammography and ultrasound. BI-RADS 0, additional evaluation is requ ired. Narrative 01/19/2016 8:20 AM EDT INTERPRETATION OF OUTSIDE BREAST IMAGING I have been asked to consult on this pat ient by Dr. Garnett because she believes a review of this study may brown ge or alter the care of this patient. STUDIES FROM: [facility]. DATES: 10/05/2015, 09/29/2015. CLINICAL HISTORY: LEFT BREAST DENSITY, C AT 4, CALL PT, ?MORE IMAGING? BX, What Modality is the exam? Mammography, Body Part (please add comments as necessary): BREAST, I believe a reinterpretation of this exam may alter care of Patient. Yes. ?? COMPARISONS: 09/16/2013, 08/17/2012. FINDINGS: Mammography: Left breast: ??Equivocal focal asymmetry of the retroareolar left breast. No additional findings. Although 10/05/2015 diagnostic mammographic imaging was performed at outside facility, these courtney ges are not available. Right breast: No suspicious calcificatio ns, mass, distortion. ULTRASOUND: Outside static images, for review, not f or primary interpretation. Ultrasound is technical operator dependent. Equivocal/subtle sha dowing is appreciated, in the region of the nipple, not fully characterized on t his examination, left breast. Procedure Note Tank Phillips MD - 01/19/2016Format ting of this note might be different from the original. INTERPRETATION OF OUTSIDE BREAST IMAGING I have been asked to consult on this pat ient by Dr. Garnett because she believes a review of this study may brown ge or alter the care of this patient. STUDIES FROM: [facility]. DATES: 10/05/2015, 09/29/2015. CLINICAL HISTORY: LEFT BREAST DENSITY, C AT 4, CALL PT, ?MORE IMAGING? BX, What Modality is the exam? Mammography, Body Part (please add comments as necessary): BREAST, I believe a reinterpretation of this exam may alter care of Patient. Yes. COMPARISONS: 09/16/2013, 08/17/2012. FINDINGS: Mammography: Left breast: Equivocal focal asymmetry o f the retroareolar left breast. No additional findings. Although 10/05/2015 diagnostic mammographic imaging was performed at outside facility, these courtney ges are not available. Right breast: No suspicious calcificatio ns, mass, distortion. ULTRASOUND: Outside static images, for review, not f or primary interpretation. Ultrasound is technical operator dependent. Equivocal/subtle sha dowing is appreciated, in the region of the nipple, not fully characterized on t his examination, left breast. IMPRESSION Limited/incomplete imaging, partial imag ing of the left breast without follow-up diagnostic views available for interpret ation, questionable focal asymmetry of the left breast, retroareolar. Outside s tatic ultrasound images with areas of shadowing, marked retroareolar. RECOMMENDATION: Patient will be contacted for additional diagnostic imaging of the left breast, 2-D/3-D mammography and ultrasound. BI-RADS 0, additional evaluation is requ ired. Jen Maurice MD IMG OUTSIDE INTERPRETATION O RDERABLES documented in this encounter Visit Diagnoses Diagnosis Pain Generalized pain documented in this encounter Care Teams Fundraising Consultant Relationship Specialty Start Date End Date Mellissa Garnett MD PCP - General 03/09/[address] [place] [address] [address] [facility] [address] [place] [address] documented as of this encounter
--- OUTSIDE RECORDS SUMMARY | 2021-12-28 14:58 | XMS_ITS | Encounter Summary ---
:1945 Author Organization [facility] Address [address] [place] [address] Care Team Providers Name Role Phone Mellissa Garnett MD Primary Care Provider Encounter Details Date Type Department Care Team Description 06/26/2015 Clinical Support Urology at [facility] Malignant neoplasm of [facility] urinary b ladder, [place] [address] Social History Tobacco Use Types Packs/Day Years [...] documented as of this encounter Progress Notes Kervin Castellanos LPN - 06/26/2015 10:15 AM EST Patient came in for a repeat urine cytology. The patient said she was told her sample was dumped andthat she would receive a gas card for her travel back. I have sent her urine for cytology and had the airline lounge receptionist add her to their gas card list so we can send her one in the mail. KERVIN CASTELLANOS LPN documented in this encounter Plan of Treatment Not on filedocumented as of this encounter Procedures Procedure Name Priority Date/Time Associated Comments Diagnosis CYTOPATHOLOGY Routine 06/26/2015 10:16 Malignant neoplasm Resu lts for this NON-GYNECOLOGICAL AM EST of urinary bladder, pro cedure are in unspecified site the results section. NON-BUSINESS BROKER FINAL REPORT Routine 06/26/2015 10:15 Res ults for this AM EST procedure are i n the results section. documented in this encounter Results Cytopathology Non-Gynecological (06/26/2015 10:16 AM EST) Specimen Anatomical Collection Method Collection Time Receive d Time (Source) Location / / Volume Laterality AP Specimen 06/26/2015 10:16 06/26/2015 AM EST 10:16 AM EST Narrative [facility] - 06/26/2015 10:16 AM EST Specimen requisition ordered. ??Separate Pathology report to follow Maliha Schultz MD PATHOLOGY/CYTOLOGY ORDERABLE S Performing Organization Address City/State/ZIP Code Phon e Number [place] [phone] Non-Poured Concrete Wall Technician Final Report (06/26/2015 10:15 AM EST) Component Value Ref Test Analysis Performed At Patholo gist Range Method Time Signature Non-Poured Concrete Wall Technician [id number] ? Location: [address] [place] [address] Final Report GADSDEN The signing pathologist has (i) examined the relevant preparation(s) for the [facility] specimen(s) and (ii) rendered or confirmed the diagnosis(es) . H[facility]PITAL [facility] . ? No n-Poured Concrete Wall Technician Final DIAGNOSIS Negative for Malignancy 06/26/15 ?Screened by: ? REP ?Rescreened by: ?? EJG 06/27/15 ?Verified by: ? Nilo Solano MD ? Cytopathologis t ? (Electronic Si gnature) DISCUSSION Urine, Voided: Urothelial and squamous cells present. CLINICAL INFORMATION Specimen Source: ?? Urine, Voided Pertinent Clinical Data and Significant Therapy: ?? H/o bladder cancer Clinical Impression: ?? H/o of bladder cancer Pertinent Radiologic Findings: ?? (not provided) Gross Description: ?? Received in 50% ETOH, ap proximately 40 ml. total volume of cloudy, yellow fluid. ?? Total Preparation: Liquid Based Prep 1. Specimen (Source) Anatomical Collection Method Collection Time Re ceived Time Location / / Volume Laterality 06/26/2015 10:15 AM EST Maliha Schultz MD PATHOLOGY/CYTOLOGY ORDERABLE S Performing Organization Address City/State/[place] [address] documented in this encounter Visit Diagnoses Diagnosis Malignant neoplasm of urinary bladder, u nspecified site documented in this encounter Care Teams Rubber Mixer Relationship Specialty Start Date End Date Mellissa Garnett MD PCP - General 03/09/[address] [place] [address] [address] [place] [address] documented as of this encounter
--- OUTSIDE RECORDS SUMMARY | 2021-12-28 14:58 | XMS_ITS | Encounter Summary ---
:1945 Author Organization [facility] Address [address] [place] [address] Care Team Providers Name Role Phone Mellissa Garnett MD Primary Care Provider Encounter Details Date Type Department Care Team Description 08/16/2018 Hospital Encounter XRay at [facility] Ananth SegundoEvensEric, Right shoulder pain, [address] [place] unspecified [place], [place] [facility] chronicity [id number] [facility] [phone] [place] [address] Social History Tobacco Use Types Packs/Day Years Used Date Never Smoker Smokeless Tobacco: Never Used Alcohol Use Standard Drinks/Week Comments Never 0 (1 standard drink = 0.6 oz pure alcoho l) Alcohol Habits Answer Date Recorded How often [...] every 4 hours as needed for Pain. glucosamine sulfate 500 Take by mouth. 0 08/30/2018 mg Tablet calcium carbonate Take 1 tablet by 0 0 10/11/2018 (TUMS) 200 mg calcium mouth daily. (500 mg) Tablet, Chewable acetaminophen (TYLENOL) Take 1,000 mg by 0 08/30/2018 500 mg Tablet mouth every 6 hours as needed for Pain. mupirocin (BACTROBAN) 2 Apply 1 each 22 g 0 08/16/2018 08/30/2018 % OintmentIndications: topically 2 times Tear of right rotator daily. cuff, unspecified tear extent, unspecified whether traumatic Cholecalciferol, Take 5,000 Units by 0 10/11/2018 Vitamin D3, (VITAMIN D) mouth daily. 1,000 unit Cap documented as of this encounter Plan of Treatment Not on filedocumented as of this encounter Procedures Procedure Name Priority Date/Time Associated Diagnosis Comme [facility] XR SHOULDER RIGHT Routine 08/16/2018 9:26 AM Right shoulder pa in, Results for this EDT unspecified procedure are i n chronicity the results section. documented in this encounter [...] please contact e number below. ? Narrative 08/16/2018 1:16 PM EDT EXAMINATION: XR [...] Diagnosis Right shoulder pain, unspecified chronic ity documented in this encounter Care Teams Licensed Sales Producer Relationship Specialty Start Date End Date Mellissa Garnett MD PCP - General 03/09/[address] [place] [address] documented as of this encounter
--- OUTSIDE RECORDS SUMMARY | 2021-12-28 14:58 | XMS_ITS | Encounter Summary ---
:1945 Author Organization [facility] Address [address] [place] [address] Care Team Providers Name Role Phone Mellissa Garnett MD Primary Care Provider Reason for Visit Reason Comments Right Shoulder Pain right shoulder pain s/p surg javed Consultation (Routine) - Closed Specialty Diagnoses / Procedures Referred By Contact Refer red To Contact Orthopaedics Diagnoses right shoulder pain Dakota Moya MD Bell, John-Erik, MD [address] [place] [address] [place], [place] ORTHOPAEDIC SURGERY [id number] [place] [phone] Fax: Referral ID Status Reason Start Date Expiration Date Visits V isits Requested Authorized [id number] Closed Consult, 07/13/2018 07/13/2019 1 1 [facility] Encounter Details Date Type Department Care Team Description 08/16/2018 Office Visit Orthopaedics at [facility] Nakia Segundo, Chronic pain in right should er; [facility] Tear of right rotator cuff, unspecified tear extent, unspecified whether traumatic; [facility] [place] [address] [place] [address] ORTHOPAEDIC SURGERY [place], [place] [address] Social History Tobacco Use Types [...] Sign Reading Time Taken Comments Blood Pressure 148/74 08/16/2018 9:43 AM EDT Pulse 72 08/16/2018 9:43 AM EDT Temperature - - Respiratory Rate - - Oxygen Saturation - - Inhaled Oxygen Concentration - - Weight 72.1 kg (159 lb) 08/16/2018 9:43 AM EDT verbal Height 157.5 cm (5' 2) 08/16/2018 9:43 AM EDT verbal Body Mass Index 29.08 08/16/2018 9:43 AM EDT documented in this encounter Progress Notes Oliiva Ovalle, ELECTRICAL ENGINEERING DRAFTING OFFICER - 08/16/2018 8:45 AM EDT This 73 y.o. patient is seen in consultation at the request of Dakota Moya. In order to facilitate the coordination of this patient's care, a copy of this note will be sent to Dakota Moya. Pertinent surgical hx: Right shoulder RTC repair. Dr. Moya. [place], [place] Reason for Consultation: Right shoulder pain. History of Present Condition: Julissa Etienne is a pleasant 73 y.o. year-old female who visits the Orthopaedic clinic today with a history of right shoulder pain following a failed RTC repair surgery.She tore the RTC 2018 associated with a mechanical fall. She did ok initially after surgical repair,however, she did struggle with pain and stiffness post op. She did have a cortisone injection post op in attempt to help with aforementioned post op symptoms with no significant improvement. Therefore a post op MRI was obtained which revealed + re-tear of the RTC and RTC arthropathy. She has been struggling with moderate to severe shoulder pain for several months and is referred to Dr. Segundo's team to discuss treatment options further. The right shoulder pain is exacerbated by all ADL's. She has beentaking Tylenol and Ibuprofen for the pain and has undergone one cortisone injection to address this pain. No current neck pain or radiculopathy. No numbness or tingling in the fingers. She is very active and would like to discuss next step treatment options further. Past Medical History: Active Ambulatory Problems Diagnosis Date Noted ??? Lumbar radicular pain 12/16/2010 ??? Bladder cancer 03/26/2012 ??? History of bladder cancer 06/19/2015 Resolved Ambulatory Problems Diagnosis Date Noted ??? No Resolved Ambulatory Problems Past Medical History: Diagnosis Date ??? Bladder cancer Past Surgical History Right shoulder RTC repair. [place], [place] LEFT hip replacement 2017 Bladder surgery for CA 1995 T and A D and C Gall Bladder Social History - Relationship status - she is . Employment status - she is currently Retired. Very active. Enjoys skiing. Social History Tobacco Use Smoking Status Never Smoker Smokeless Tobacco Never Used Social History Substance and Sexual Activity Alcohol Use Never ??? Frequency: Never Family History - her family history is pertinent for Family History Problem Relation Age of Onset ??? Breast Cancer Neg Hx Review of Systems: A thirteen-system review was negative: Denies fever, chills, nausea, vomiting, vision change, shortness of breath, chest pain, vision changes, headaches, bowel or bladder problem, ear, nose, sinus problem, neuro or psychiatric, or endocrine disorder not addressed above. There is no history of bleedingdisorders. No DVT or PE history. No sleep apnea or CPAP use. There are no reported problems with anesthesia. Physical Examination: Vitals: BP Readings from Last 1 Encounters: 08/16/18 148/74 Pulse Readings from Last 1 Encounters: 08/16/18 72 Height: 157.5 cm (5' 2)(verbal) Weight: 72.1 kg (159 lb)(verbal) Body mass index is 29.08 kg/m??. Constitutional- she is alert and oriented to person, place, time, and situation. she is in no apparent distress. Here with her . Ears, nose, mouth, throat - her head is normocephalic. No gross deformities. Integumentary - in general her skin shows normal coloration and turgor, no rashes, no suspicious skin lesions noted. Psychiatric - her affect was appropriate Musculoskeletal examination: Motor exam shows 5/5 strength in lateral deltoid muscles of the upper extremity. c-spine mild stiffness. Negative Spurling's. Lateral deltoid 5/5. ?? Shoulder motion Active Passive Strength ?? Flexion 60 70 4/5 + drop arm test. ?? Internal rotation PSIS Same 5-/5 ?? External rotation 15 Same 4/5 No lag. Axillary, radial, ulna and median neuro-motor intact. Hand is sensate, well perfused, distal pulses are 2+ and equal. Imaging Studies: Plain radiographs - right shoulder x-ray reviewed image by image in the office today RTC arthropathywith moderate GH OA MRI - + re tear of the right shoulder RTC supraspinatus with RTC arthropathy CT - none Impression & Plan: 73 y.o. year-old female with based upon history, physical exam, and imaging studies appears to haveright shoulder RTC arthropathy with moderate GH OA with pain and limited function both significantlyinterfering with his lifestyle. I reviewed my findings in the office today with both x-rays and clinical exam. Treatment options and risks/benefits discussed from least to most invasive. Patient understands options. At this time, We could offer her a reverse TSA surgery as the next step for surgery.She would like to proceed. Surgical booking orders placed after detailed reviewed of risks and benefits of surgery reviewed. She will need pre-op clearance with her PCP. She will meet with the Nursing staff for pre-op teaching and the surgical schedulers to pick a date. Pt agrees, questions solicited/answered, will return as scheduled and as needed for concerns or questions. Pt understands they may also call us prn for above. Please copy this note to: Dakota Moya MD [address] [place] [id number] Stacie Morris RN - 08/16/2018 8:45 AM EDT Pre Op Teaching Shoulder Arthroplasty Patient was educated on importance of staying healthy and keeping surgical arm and shoulder free ofcuts, scratches, arevalo or beaks in the skin. Patient will inform us of any skin rashes, breaks in skin or illnesses prior to surgery. We discussed practicing daily activities; eating, brushing teeth, toileting ect. with non-operative arm. Discussed stopping ASA or anti-inflammatories including fish oil 7 days prior to surgery. Discussed avoiding anti-inflammatories for 6 weeks after surgery due to possible delay in wound healing. May take Tylenol if needed for pain management. Hibicleans soap and Mupirocin ointment given with instructions . With a reverse shoulder replacement, there is no formal therapy General post op guidelines discussed including hydration, nutrition, constipation, dressing changes,ice and wearing of the sling. Patient declines need for VNA services after surgery A review of typically prescribed post op pain medication and suggestions for taking it and taperingthem in a methodical fashion was undertaken. Tylenol is recommended to take daily after surgery to decrease need for as much narcotics. Cold therapy is advised 6-8 times a day, 15-20 minutes at a time.Reviewed that the second day after surgery is often the most painful, discussed ???staying ahead of the pain???. Written material given Shoulder Replacement Guidebook?? Questions solicited and answered. Pt knows to call with any additional questions or concerns. Patient advised to read discharge instructions for specific recommendations about medication use, dressing care, sling use ect. after surgery. Patient was given the choice of vendors for the shoulder immobilizer documented in this encounter Plan of Treatment Not on filedocumented as of this encounter Procedures Procedure Name Priority Date/Time Associated Comments Diagnosis CRP, ACUTE Routine 08/16/2018 11:22 Chronic pain in Results for this INFLAMMATION AM EDT right shoulder procedure are in the results section. HEMOGRAM Routine 08/16/2018 11:22 Chronic pain in Results for this AM EDT right shoulder procedure are in the results section. DIFFERENTIAL, Routine 08/16/2018 11:22 Chronic pain in Results for this AUTOMATED AM EDT right shoulder procedure are in the results section. SEDIMENTATION RATE Routine 08/16/2018 11:22 Chronic pain in Re sults for this AM EDT right shoulder procedure are in the results section. CBC (WITH DIFF) Routine 08/16/2018 11:22 Chronic pain in AM EDT right shoulder TOTAL SHOULDER Routine 08/16/2018 10:09 ARTHROPLASTY AM EDT documented in this encounter Results Differential, Automated (08/16/2018 11:22 AM EDT) P athologist Signature Neutrophils % 59.6 % [facility] Neutr Abs (ANC) 4.58 1.70 - [facility] 6.10 [facility] x10(3)/[facility] Lymphocytes % 29.5 % [facility] Lymphocytes Abs 2.3 0.9 - 3.2 [facility] x10(3)/[facility] Monocytes % 8.8 % [facility] Monocyte Abs 0.7 0.3 - 0.9 [facility] x10(3)/[facility] LABOR[facility]ORY Eosinophils % 1.2 % [facility] Eosinophils Abs 0.1 0.0 - 0.4 [facility] x10(3)/[facility] Basophils % 0.5 % [facility] Basophils Abs 0.0 0.0 - 0.1 [facility] x10(3)/[facility] Immature Gran % 0.40 % [facility] Comment: Immature granulocytes(IG's)percentage an d absolute count will include metamyelocytes, myelocytes, and promyelo cytes. Blood smears from CBCs yielding IG's will be scanned manually for concor dance. If this scan disagrees with the automated IG or if promyelocytes are not ed, a manual differential will be performed. Monet Gran Abs 0.03 0.00 - 0.04 x10(3)/[facility] Specimen Anatomical Collection Method Collection Time Receive d Time (Source) Location / / Volume Laterality Blood specimen 08/16/2018 11:22 9 (specimen) AM EDT 11:30 AM EDT Resulting Agency Comment Spec In Lab Nakia Segundo MD HEMATOLOGY ORDERABLES Performing Organization Address City/State/[place] [address] Hemogram (08/16/2018 11:22 AM EDT) P athologist Signature WBC 7.7 4.0 - 9.5 [facility] x10(3)/[facility] RBC 4.34 4.00 - [facility] 5.21 [facility] x10(6)/[facility] Hemoglobin 13.3 11.7 - [facility] 15.5 gm/dL [facility] Hematocrit 40.1 35.7 - [place] 45.8 % [facility] MCV 92.4 82.6 - [place] 94.4 [facility] MCH 30.6 27.1 - [place] 32.0 pg [facility] MCHC 33.2 31.7 - [place] 35.0 gm/dL [facility] Platelets 214 145 - 357 [facility] x10(3)/[facility] LABORATORY RDWSD 44.0 37.0 - [place] 46.0 [facility]ORATORY RDWCV 13.1 11.5 - [place] 14.1 % [facility] MPV 9.7 7.6 - 12.9 [place] [facility] nRBC % Auto 0.0 % [facility] nRBC Abs Auto 0.000 0.000 - [place] 0.000 [facility] x10(3)/[facility] Specimen Anatomical Collection Method Collection Time Receive d Time (Source) Location / / Volume Laterality Blood specimen 08/16/2018 11:22 9 (specimen) AM EDT 11:30 AM EDT Resulting Agency Comment Spec In Lab Nakia Segundo MD HEMATOLOGY ORDERABLES Performing Organization Address City/State/ZIP Code Phon e Number [address] CRP, acute inflammation (08/16/2018 11:22 AM EDT) P athologist Signature CRP 0.5 <=4.9 mg/L [facility] Specimen Anatomical Collection Method Collection Time Receive d Time (Source) Location / / Volume Laterality Blood specimen 08/16/2018 11:22 9 (specimen) AM EDT 11:30 AM EDT Resulting Agency Comment Spec In Lab Nakia Segundo MD CHEMISTRY ORDERABLES Performing Organization Address City/[facility]/ZIP [facility] Phon e Number [address] Sedimentation rate (08/16/2018 11:22 AM EDT) P athologist Signature Sed Rate 8 0 - 20 [place] mm/hr [facility] Specimen Anatomical Collection Method Collection Time Receive d Time (Source) Location / / Volume Laterality Blood specimen 08/16/2018 11:22 9 (specimen) AM EDT 11:30 AM EDT Resulting Agency Comment Spec In Lab Nakia Segundo MD HEMATOLOGY ORDERABLES Performing Organization Address City/State/[place] [address] documented in this encounter Visit Diagnoses Diagnosis Chronic pain in right shoulder Pain in joint, shoulder region Tear of right rotator cuff, unspecified tear extent, unspecified whether traumatic Shoulder arthritis Unspecified arthropathy, shoulder region documented in this encounter Care Teams Certified Cytotechnologist Relationship Specialty Start Date End Date Mellissa Garnett MD PCP - General 03/09/[address] [place] [address] documented as of this encounter
--- OUTSIDE RECORDS SUMMARY | 2021-12-28 14:58 | XMS_ITS | Encounter Summary ---
:1945 Author Organization [facility] [place] [address] Care Team Providers Name Role Phone Mellissa Garnett MD Primary Care Provider Encounter Details Date Type Department Care Team Description 06/19/2015 Office Visit Urology at [facility] Maliha Schultz (Primary Dx); [facility] MD Priscilla Malignant neoplasm of urinary bladder, u nspecified site; Drive [facility] History [place] [address] UROLOGY DEPT. [phone] [place], [place] [address] (Wo rk) Social History Tobacco [...] Sign Reading Time Taken Comments Blood Pressure 154/84 06/19/2015 11:15 AM EST Pulse 89 06/19/2015 11:15 AM EST Temperature 36.8 ??C (98.3 ??F) 06/19/2015 11:15 AM EST Respiratory Rate - - Oxygen Saturation 94% 06/19/2015 11:15 AM EST Inhaled Oxygen Concentration - - Weight 72.6 kg (160 lb) 06/19/2015 11:15 AM EST Height 160 cm (5' 3) 06/19/2015 11:15 AM EST Body Mass Index 28.34 06/19/2015 11:15 AM EST documented in this encounter Patient Instructions Patient InstructionsLolis Yelena TrevinoPÉREZ - 06/19/2015 11:05 AM EST Instructions following Cystoscopy Activity: As tolerated by [...] to void please call our office at [phone] before 5PM or [phone] after hours. Please call if: * you have copious blood in your urine * fevers greater than 101.3 F * you are unable to void The number for questions is [phone] before 5 PM weekdays and [phone] after 5 PM and weekends. Follow-up: With Dr. Schultz in 1yr documented in this encounter Progress Notes Maliha Schultz MD - 06/19/2015 12:41 PM EST . This 69 year old woman presents for cystoscopy because [...] ago. She feels well. She is enjoying jail/ On exam: Well looking. Abd: soft, non tender, no masses. : ext. Genitalia normal. Cysto: negative - see note Imp: pt without recurrence of bladder tumor - doing well. She emptied well today, pvr was 27. Plan: repeat cytology and repeat cysto in 1 yr, sooner if she has hematuria. Advised to timed void and double void. Yelena Danielle LPN - 06/19/2015 12:33 PM EST Post Void Residual 27 mls documented in this encounter Procedure Notes Maliha Schultz MD - 06/19/2015 12:43 PM ESTAssociated Order(s): CYSTOSCOPY Pre-Procedure Diagnose(s): History of bladder [...] to the procedure. documented in this encounter Miscellaneous Notes Addendum Note - Yelena Danielle LPN - 06/22/2015 1:39 PM EST Addended by: YELENA DANIELLE on: 06/22/2015 01:39 PM Modules accepted: Orders documented in this encounter Plan of Treatment Not on filedocumented as of this encounter Procedures Procedure Name Priority Date/Time Associated Comments Diagnosis CYTOPATHOLOGY Routine 06/22/2015 1:39 PM Hematuria Results for this NON-GYNECOLOGICAL EST procedure are in the results section. CYSTOSCOPY Routine 06/19/2015 12:45 Malignant neoplasm Resul ts for this PM EST of urinary bladder, procedur e are in unspecified site the results section. documented in this encounter Results Cytopathology Non-Gynecological (06/22/2015 1:39 PM EST) Specimen Anatomical Collection Method Collection Time Receive d Time (Source) Location / / Volume Laterality AP Specimen 06/22/2015 1:39 PM 6 1:39 EST PM EST Narrative [facility] - 06/22/2015 1:39 PM EST Specimen requisition ordered. ??Separate Pathology report to follow Maliha Schultz MD PATHOLOGY/CYTOLOGY ORDERABLE S Performing Organization Address City/State/[place] [address] Cystoscopy - Today (06/19/2015 12:45 PM EST) Narrative Maliha Schultz MD - 06/19/2015 12:45 PM EST Maliha Schultz MD ? 06/19/2015 12:45 PM Procedure: Flexible cystoscopy. Surgeon: Marion Pre-Operative [...] the procedure. Maliha Schultz MD PROCEDURE ORDERABLES documented in this encounter Visit Diagnoses Diagnosis Hematuria - Primary Hematuria, unspecified Malignant neoplasm of urinary bladder, u nspecified site History of bladder cancer Personal history of malignant neoplasm o f bladder documented in this encounter Care Teams Motors Assembler Relationship Specialty Start Date End Date Mellissa Garnett MD PCP - General 03/09/[address] [place] [address] documented as of this encounter
--- OUTSIDE RECORDS SUMMARY | 2021-12-28 14:58 | XMS_ITS | Encounter Summary ---
:1945 Author Organization [facility] [place] [address] Care Team Providers Name Role Phone Mellissa Garnett MD Primary Care Provider Encounter Details Date Type Department Care Team Description 06/23/2015 Telephone Urology at [facility] [place] [address] Social History Tobacco Use Types Packs/Day [...] this encounter Miscellaneous Notes Telephone Encounter - Yelena Danielle LPN - 07/10/2015 11:29 AM EDT No additional notes documented in this encounter Plan of Treatment Not on filedocumented as of this encounter Visit Diagnoses Not on filedocumented in this encounter Care Teams Senior Patient Account Representative Relationship Specialty Start Date End Date Mellissa Garnett MD PCP - General 03/09/[address] [place], [place] [id number] documented as of this encounter
--- OUTSIDE RECORDS SUMMARY | 2021-12-28 14:58 | XMS_ITS | Encounter Summary ---
:1945 Author Organization [facility] [place] [address] Care Team Providers Name Role Phone Mellissa Garnett MD Primary Care Provider Encounter Details Date Type Department Care Team Description 08/16/2018 Laboratory Appointment Lab at [facility] [place] [address] Social History Tobacco Use Types Packs/Day [...] on filedocumented in this encounter Care Teams Mobile Lounge Driver Relationship Specialty Start Date End Date Mellissa Garnett MD PCP - General 03/09/[address] [place] [address] documented as of this encounter
--- OUTSIDE RECORDS SUMMARY | 2021-12-28 14:58 | XMS_ITS | Encounter Summary ---
:1945 Author Organization [facility] [place] [address] Care Team Providers Name Role Phone Mellissa Garnett MD Primary Care Provider Encounter Details Date Type Department Care Team Description 12/30/2015 External Results Radiology Library at [facility] Provider, [place] [address] Social History Tobacco Use Types Packs/Day [...] Name Priority Date/Time Associated Diagnosis Comme nts MAMMOGRAM SCAN Routine 09/16/2013 MAMMOGRAM SCAN Routine 08/17/2012 documented in this encounter Results Scan Doc: Mammogram (09/16/2013) Anatomical Region Laterality Modality Other Narrative This result has an attachment that is no t available. Scanning Provider MEDIA MGR SCAN EXT ORDR/RSLT Scan Doc: Mammogram (08/17/2012) Anatomical Region Laterality Modality Other Narrative This result has an attachment that is no t available. Scanning Provider MEDIA MGR SCAN EXT ORDR/RSLT documented in this encounter Visit Diagnoses Not on filedocumented in this encounter Care Teams Offal Icer Poultry Relationship Specialty Start Date End Date Mellissa Garnett MD PCP - General 03/09/[address] [place] [address] documented as of this encounter
--- OUTSIDE RECORDS SUMMARY | 2021-12-28 14:58 | XMS_ITS | Encounter Summary ---
:1945 Author Organization [facility] [place] [address] Care Team Providers Name Role Phone Mellissa Garnett MD Primary Care Provider Reason for Visit Reason Onset Date Comments Other 02/06/2019 Encounter Details Date Type Department Care Team Description 02/06/2019 Telephone Orthopaedics at [facility] [place] [address] Social History Tobacco Use Types Packs/Day [...] this encounter Miscellaneous Notes Telephone Encounter - Gale Kwan LPN - 02/07/2019 1:37 PM EDT Left message on VM stating that Julissa does not need to use prophylactic antibiotics per [employer] Appropriate Use Guidelines. Telephone Encounter - Sully Blandon RN - 02/06/2019 8:47 AM EDT Patient is asking if antibiotic coverage will be needed for routine dental work. She has cleaning planned 6 months after surgery. Thanks for guidance. documented in this encounter Plan of Treatment Not on filedocumented as of this encounter Visit Diagnoses Not on filedocumented in this encounter Care Teams Pbx Installer Relationship Specialty Start Date End Date Mellissa Garnett MD PCP - General 03/09/[address] [place] [address] [address] [place] [address] documented as of this encounter
--- OUTSIDE RECORDS SUMMARY | 2021-12-28 14:58 | XMS_ITS | Encounter Summary ---
:1945 Author Organization [facility] [place] [address] Care Team Providers Name Role Phone Mellissa Garnett MD Primary Care Provider Encounter Details Date Type Department Care Team Description 08/16/2018 Clinical Support Same Day at [facility] [place] [id number] Social History Tobacco Use Types Packs/Day [...] Sign Reading Time Taken Comments Blood Pressure - - Pulse - - Temperature - - Respiratory Rate - - Oxygen Saturation 94% 08/16/2018 11:28 AM EDT Inhaled Oxygen Concentration - - Weight - - Height - - Body Mass Index - - documented in this encounter Progress Notes Joslyn Mandujano RN - 08/16/2018 11:20 AM EDT PAT questionnaire reviewed with patient while in Pre Admission testing. Pre- operative instruction booklet reviewed. Patient verbalizes a good understanding of all information reviewed. PLAN: Testing: Labs done @ 3L Special medication instructions: None Procedure date: [facility] documented in this encounter Plan of Treatment Not on filedocumented as of this encounter Visit Diagnoses Not on filedocumented in this encounter Care Teams [employer] Technology Teacher Relationship Specialty Start Date End Date Mellissa Garnett MD PCP - General 03/09/[address] [place] [address] documented as of this encounter
--- OUTSIDE RECORDS SUMMARY | 2021-12-28 14:58 | XMS_ITS | Encounter Summary ---
:[address] [place] [address] Care Team Providers Name Role Phone Mellissa Garnett MD Primary Care Provider Encounter Details Date Type Department Care Team Description 09/29/2015 [facility] [place] [address] DIAGNOSTIC RADIOLOGY [phone] [place] [id number] (Wo rk) Social History Tobacco Use Types [...] Associated Diagnosis Comme nts FILM LIBRARY Routine 09/29/2015 12:00 AM Screening Results for this STORAGE ONLY MAMMO EDT procedure are in the results section. documented in this encounter Results Film Library- Storage only Mammo (09/29/2015 12:00 AM EDT) Specimen (Source) Anatomical Location Collection Method / Collectio n Time Received Time / Laterality Volume Narrative RAD - 12/30/2015 4:15 PM EDT This exam is for storage only and is aut o-finalizing. Jen Maurice MD IMG FILM LIBRARY ORDERABLES Performing Organization Address City/State/ZIP Code Phon e Number [place], [place] documented in this encounter Visit Diagnoses Diagnosis Screening Screening for unspecified condition documented in this encounter Care Teams Paper Box Cutter Relationship Specialty Start Date End Date Mellissa Garnett MD PCP - General 03/09/[address] [place] [address] documented as of this encounter
--- OUTSIDE RECORDS SUMMARY | 2021-12-28 14:58 | XMS_ITS | Encounter Summary ---
:1945 Author Organization [facility] [place] [address] Care Team Providers Name Role Phone Mellissa Garnett MD Primary Care Provider Reason for Visit Reason Comments Follow-up R TSA DOS: 08/28/18 Encounter Details Date Type Department Care Team Description 09/13/2018 Office Visit Orthopaedics at [facility] Jen Guerrero s/rae R RTSA ( [facility] MIRTA Gore), 08/28/18 [place] [address] [place] [address] ORTHOPAEDIC SURGERY [place] [address] Social History Tobacco Use Types Packs/Day Years [...] Sign Reading Time Taken Comments Blood Pressure 127/70 09/13/2018 10:35 AM EDT Pulse 75 09/13/2018 10:35 AM EDT Temperature 37.1 ??C (98.8 ??F) 09/13/2018 10:35 AM EDT Respiratory Rate - - Oxygen Saturation - - Inhaled Oxygen Concentration - - Weight 72.1 kg (159 lb) 09/13/2018 10:35 AM EDT reporte d Height 157.5 cm (5' 2) 09/13/2018 10:35 AM EDT reporte d Body Mass Index 29.08 09/13/2018 10:35 AM EDT documented in this encounter Progress Notes Jen Guerrero PA - 09/13/2018 10:40 AM EDT PATIENT NAME: Julissa Etienne AGE: 73 y.o. MR#: [id number] DATE OF VISIT: 09/13/2018 DATE OF SURGERY: 08/28/2018 SURGERY DESCRIPTION: TOTAL SHOULDER ARTHROPLASTY (WRVU 22.13) (Right) MODIFIER KUN TM REVERSE (N/A) MODIFIER LANDO CHAIR ZULY (N/A) SURGEON: Dr. Segundo CHIEF COMPLAINT: 2 weeks S/P above procedure HISTORY OF PRESENT ILLNESS: Ms. Etienne is a 73 y.o. female who presents 2 weeks s/p the above procedures for office follow up. She has been doing well since surgery. Her pain continues to improve. She has not needed to take Dilaudid on a regular basis and is using Tylenol primarily for pain control.She is using her sling as recommended. Ms. Etienne denies fever and chills. PHYSICAL EXAM: Ms. Etienne is a 73 y.o. female who is alert, appears stated age, cooperative and nodistress. Inspection: Healing surgical incisions with no evidence of infection. ROM/Strength: Shoulder ROM and strength was not assessed. Wrist and finger ROM remains intact. Neurovascular: Intact motor function of the radial, median, ulnar, axillary and musculocutaneous nerves. Intact sensation along radial, median, ulnar, axillary, and lateral antebrachial cutaneous nervedistributions. Good hand perfusion. SURVEY RESPONSES: [facility] Surgical Postop Visit 09/13/2018 PROMIS-10 General Health Good PROMIS-10 Quality of Life Very Good PROMIS-10 Physical Health Very Good PROMIS-10 Mental Health Very Good PROMIS-10 Social Activity Very Good PROMIS-10 Everyday Activities Moderately PROMIS-10 Pain 4 PROMIS-10 Fatigue Moderate PROMIS-10 Social Roles Good PROMIS-10 Anxious or Depressed Sometimes PROMIS PHYSICAL HEALTH SCORE 42.3 PROMIS MENTAL HEALTH SCORE 50.8 Gone to ER since knee surgery No Additional surgery on same body part Yes [facility] Surgeon Jayne Date of surgery 12/01/2018 Reason for surgery Shoulder Satisfaction with Treatment Satisfied [facility] Response 09/13/2018 ASES VAS-RIGHT 5 ASES ADL-RIGHT ARM 2 ASES RIGHT ARM 28.33 ASSESSMENT: 2 weeks s/p above procedure PLAN: Her suture tails were trimmed today. She can get her incision wet in the shower. She will continue with sling immobilization until she is 6 weeks postop. She can come out of her sling for showering and gentle elbow, wrist, and finger range of motion. She does not need any formal physical therapyfor her shoulder. We will show her her home exercise program after her next visit. She should continue with Tylenol for pain control. The patient understands to contact us if she has any other questions or concerns. The patient will follow up in 4 weeks with x-rays. The above documentation was completed using [employer] mobile voice recognition software. documented in this encounter [...] Diagnosis s/p R RTSA (Dr. Segundo), 08/28/18 s/p R RTSA (Dr. 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
--- OUTSIDE RECORDS SUMMARY | 2021-12-28 14:58 | XMS_ITS | Encounter Summary ---
:1945 Author Organization [facility] Address [address] [place] [address] Care Team Providers Name Role Phone Mellissa Garnett MD Primary Care Provider Encounter Details Date Type Department Care Team Description 06/26/2018 Ancillary Procedure Radiology Library at Josue Segundo MD [facility] [place] [address] [place] [id number] [phone] (Wo rk) Social History Tobacco Use Types [...] Associated Diagnosis Comme nts FILM LIBRARY Routine 06/26/2018 12:00 AM Results for this STORAGE ONLY MR EDT procedure ar e in SHOULDER the results section. documented in this encounter Results Film Library- Storage Only MR Shoulder (06/26/2018 12:00 AM EDT) Specimen (Source) Anatomical Location Collection Method / Collectio n Time Received Time / Laterality Volume Narrative [facility] - 07/12/2018 8:41 PM EDT This exam is auto-finalizing. It's purpo se is for storage only. Nakia Segundo MD G FILM LIBRARY ORDERABLES Performing Organization Address City/State/ZIP Code Phon e Number [facility] [place], [place] documented in this encounter Visit Diagnoses Not on filedocumented in this encounter Care Teams Paint Line Production Supervisor Relationship Specialty Start Date End Date Mellissa Garnett MD PCP - General 03/09/[address] [place] [address] documented as of this encounter
--- OUTSIDE RECORDS SUMMARY | 2021-12-28 14:58 | XMS_ITS | Encounter Summary ---
:1945 Author Organization [facility] [place] [address] Care Team Providers Name Role Phone Mellissa [...] Expiration Date Visits Requ ested Visits Authorized [id number] 1 1 Encounter Details Date Type Department Care Team Description 08/28/2018 - Hospital Encounter 3 [facility] Ananth De-Kenton , 08/30/[address] [facility] [address] [place], [place] ORTHOPAEDIC [address] SURGERY [phone] [place], [place] [address] Social History Tobacco Use Types [...] Sign Reading Time Taken Comments Blood Pressure 124/63 08/30/2018 11:19 AM EDT Pulse 105 08/30/2018 9:38 AM 94 at rest in cr to EDT 105 with mobilit y Temperature 36.7 ??C (98.1 ??F) 08/30/2018 11:19 AM EDT Respiratory Rate 17 08/30/2018 11:19 AM EDT Oxygen Saturation 94% 08/30/2018 11:19 AM EDT Inhaled Oxygen - - Concentration Weight 72.1 kg (159 lb) 08/28/2018 6:47 PM EDT Height 157.5 cm (5' 2) 08/28/2018 6:47 PM EDT Body Mass Index 29.08 08/28/2018 6:47 PM EDT documented in this encounter Discharge Summaries Jazzy Azevedo, AEROSPACE PROJECT MANAGER - 08/30/2018 1:46 PM EDT Discharge Summary Patient Name: Julissa Etienne Patient Age: 73 y.o. Language: Ukrainian Race: White Ethnicity: Not nor Admit date: 08/28/2018 Discharge date and time: 08/30/2018 Attending Physician: Amanda Segundo MD Discharge Physician: Amanda Segundo MD Follow-up Recommendations for Providers: See discharge instructions for additional details. Future Appointments Date Time Provider Department Center 09/13/2018 10:40 AM Jen Guerrero PA [address] Inpatient Provider Contact Information: Amanda Segundo MD Orthopedics: [phone] After hours and weekends, call [facility] Supervisor Locomotive, , and have the Orthopedic resident paged. [...] SHOULDER ARTHROPLASTY MODIFIER KUN TM REVERSE MODIFIER [employer] CHAIR ZULY History of Presentation: Julissa Etienne is a [...] Weight: Wt Readings from Last 1 Encounters: 05//19 72.1 kg (159 lb) Height: Ht Readings [...] 193 214 Last 3 Lytes Recent Labs 08/30/188 08/29/18 0431 NA 142 142 K 4.2 [...] number below. Electronically signed by: Angelica London [facility] ([phone]), at 08/28/2018 3:53 PM Pending Studies and Lab Data at Discharge: None Transfusions: No Discharge Conditions/Prognosis: Stable, awake, and alert. Mobilizing as noted above, pain controlledon oral medications. Discharge to: Home Updated Allergies/ADRs: Allergies Allergen Reactions ??? Oxycodone Upb-Nctyanntq-Hsr Other (See Comments) went crazy Immunizations Given [...] on them. You can also take an hlda-hxv-xevymci stool softener, Colace or senna, to facilitate [...] or lightly covered. Call your doctor at [phone] if: 1. You have a fever > [...] You will have follow up appointments at [facility] as indicated in Future Appointments and Orders. Future Appointments Date Time Provider Department Center 09/13/2018 10:40 AM Jen Guerrero PA [facility] [address] [place] [address] For questions/concerns weekdays, 8 am - 5 pm, call Dr. Segundo's office: [phone]. For evenings, weekends, holidays, call [phone] and request to speak with the Orthopaedic Resident technical services consultant. General Instructions None Future Appointments and Orders Future Appointments and Orders Future Appointments Provider Department Dept Phone 09/13/2018 10:40 AM Jen Guerrero PA Orthopaedics at [place] Arrive at: [place] [facility] [address] [phone] Primary Care Provider: Mellissa Garnett MD [phone] Discharge References/Attachments None documented in this encounter Discharge Instructions Patient InstructionsJazzy Azevedo, AEROSPACE PROJECT MANAGER - 08/28/2018 3:32 PM EDT Activity: 1. [...] on them. You can also take an pncf-usn-rcorzay stool softener, Colace or senna, to facilitate [...] or lightly covered. Call your doctor at [phone] if: 1. You have a fever > [...] You will have follow up appointments at [facility] as indicated in Future Appointments and Orders. Future Appointments Date Time Provider Department Center 09/13/2018 10:40 AM Jen Guerrero PA [facility] [place] [facility] For questions/concerns weekdays, 8 am - 5 pm, call Dr. Segundo's office: [phone]. For evenings, weekends, holidays, call [phone] and request to speak with the Orthopaedic Resident technical services consultant. documented in this encounter Medications at Time [...] ??? Shoulder arthritis M19.019 ??? s/p R RTSBao (Dr. Segundo), 08/28/18 Z96.611 Interval History: No [...] 10:40 AM Jen Guerrero PA [facility] [address] [place] [address] CLIN Velia Rahman RN - 08/29/2018 11:47 AM EDT Office [...] wants to go home with Vna services. [place] [facility] routed and pended. Per discussion at [...] of care, and assist with discharge planning. [place] Gauger: Velia Duran Pager [phone] Velia Duran RN - 08/29/2018 10:53 AM [...] ,daughter, sister , niece , other niece isSuni who is a RN. 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 A letter describing our affiliations was reviewed with them and theywere educated about their right to choose where referrals are placed. Patient requests referral to [facility] Expected date of discharge: 2 days. Referral routed to the Sample Taker Operator for matching with agency/vendor and to provide any required information. DME: no Dialysis: no Community Resources: no Transportation: private car, or daughter Other: no Anticipated Barriers to Discharge/Special Considerations: none Assessment: patient with history of fall and rotator cuff repair which failed, now s/p total shoulder replacement Plan: [place] home with VNA services with 24/7 care from and 2 daughters.One of daughters is a RN. A member of the Care Management team will continue to monitor progress, follow for continuity of care and assist with transition of care planning. Velai Duran RN Pager: [phone] Adriana Sorensen MD - 08/29/2018 6:39 AM [...] ??C (98.8 ??F)] Heart Rate: [67-100] Resp: [12-19] BP: (102-149)/(57-83) SpO2: [90 %-100 %] Heart [...] 10:40 AM Jen Guerrero PA [facility] [address] [place] [address] CLIN Associated attestation - Amanda Segundo MD - 08/29/2018 8:11 AM EDT Attending addendum: The preceeding portion of this note was written by Dr. Sorensen. I personally saw and evaluated the patient at the bedside and I agree with the assessment and plan documented above. Amanda Segundo M.D., M.S. Oncology Social Worker of Orthopaedic Surgery Shoulder, Elbow, and Sports Medicine Department of Orthopaedic Surgery [place], [place] [address] Shaunna Mccray RN - 08/28/2018 5:15 PM [...] ??C (98.2 ??F)] Heart Rate: [67-93] Resp: [12-19] BP: (132-146)/(69-83) Intake/Output Summary (Last 24 hours) [...] 10:40 AM Jen Guerrero PA [facility] [address] [place] [address] CLIN documented in this encounter H&P Notes [...] plan documented above. Amanda Segundo M.D., M.S. Oncology Social Worker of Orthopaedic Surgery Shoulder, Elbow, and Sports Medicine Department of Orthopaedic Surgery [place], [place] [address] documented in this encounter Miscellaneous Notes Plan of Care - Meche Reynolds REYES Gore - 08/30/2018 1:33 PM EDT Occupational Therapy [...] and measurable assessment of functional outcome. Pager: [phone] Meche Reynolds OT 08/30/2018 Occupational Therapy Rehabilitation Department Plan of Care - Marita Castro, PT - 08/30/2018 9:38 AM EDT Physical [...] NO xxx Marita Castro, PT, DPT Pager: [phone] Inpatient Physical Therapy 08/30/18 0927 Rehab Evaluation Document Type therapy note (daily note) Total Evaluation Minutes, Physical Therapy 32 (x2 TEF) Patient Effort good Symptoms Noted During/After Treatment none General Information Patient Profile Review yes Referring Physician Ratna Patient/Family/Caregiver Comments/Observations I feel much better than yesterday but I want to go home tomorrow General Observations of Patient pt ambulating in hallway pre PT with SAP DATA ARCHITECT. Up in recliner chair post PT with [...] (Group);Transfer Assessment/Treatment (Group) Bed Mobility Assessment/Treatment Scoot/Bridge Paul[place] (Bed Mobility) conditional independence Zmjqms-mo-Iwq Paul[place] (Bed Mobility) conditional independence Llg-aa-Ygndcg Paul[place] (Bed Mobility) minimum assist (75% patient effort) [...] or have assist OOB. Transfer Assessment/Treatment Bed-Chair [place] (Transfers) supervision required Chair-Bed Paul[place] (Transfers) supervision required Pao-Jheoe-Lqi Assistive Device (Transfers) straight cane [place] (Sit-Stand Transfers) conditional independence Paul[place] (Stand-Sit Transfers) conditional independence Rwd-Fogfn-Wef Assistive Device (Transfers) straight cane Maintain Weight Bearing Status (Transfers) able to maintain weight bearing status Safety Issues (Transfers) step length decreased Impairments (Transfers) balance impaired;pain;strength decreased Comment (Transfers) no overt LOB, transferred chair<>bed Gait Assessment/Treatment Paulding (Gait) conditional independence Assistive Device (Gait) straight [...] 3x2 Handrail Location (Stairs) left side (ascending) Paulding (Stairs) contact guard assist;supervision required (progressing) Assistive Device (Stairs) (none) Technique (Stairs) gnlq-sf-ipkp (ascending);kztr-ud-mylx (descending) Maintain Weight Bearing Status (Stairs) able to maintain weight bearing status Impairments (Stairs) balance impaired;pain;strength decreased Comment (Stairs) no overt LOB, CGA on first trial progressing to supervision on second trial. Use ofsingle railing without AD [facility] Basic Mobility [facility] Completed? Yes Turning from your back [...] with a railing?* 3 - A Little [facility] Basic Mobility Raw Score 22 Basic Mobility Standardized T-Scale Score 53.28 Basic Mobility CMS 0-100% 20.91 [facility] Basic Mobility CMS Modifier CJ Motor Skills/Interventions Additional Documentation Balance Skills Training (Group);Therapeutic Exercise (Group) Balance Skills Training Training Strategies (Balance) cane, supervision-independent Sitting Balance: Static good balance Sitting Balance: Dynamic good balance Qtc-ia-Xlzye Balance good balance Standing Balance: Static good [...] pillowsupports when unclasped Wear Schedule (Orthosis) wear time cycle operator Sensory Assessment/Intervention Additional Documentation General Sensory Assessment (Group) General Sensory Assessment Sensory General Assessment no sensation deficits identified Plan of Care Review Plan Of Care Reviewed With patient Progress improving Bed Mobility Goal Bed Mobility Goal, Date Established 08/29/18 Bed Mobility Goal, Time to Achieve by discharge Bed Mobility Goal, Activity Type all bed mobility activities Bed Mobility Goal, Paulding Level supervision required Bed Mobility Goal, Date Goal Reviewed 08/30/18 Bed Mobility Goal, Outcome Achieved goal partially met (can sleep in chair on DC) Gait Training Goal Gait Training Goal, Date Established 08/29/18 Gait Training Goal, Time to Achieve by discharge Gait Training Goal, Paulding Level conditional independence Gait Training Goal, Assist [...] Activity Type all transfers Transfer Train Goal, Paulding Level conditional independence Transfer Training Goal, Assist [...] Outcome: Ongoing (Interventions Implemented as Appropriate) 08/30/18 4941 Coping/Psychosocial Plan Of Care Reviewed With patient [...] Conf Outcome: Ongoing (Interventions Implemented as Appropriate) 08/30/18346 Interdisciplinary Rounds/Family Conf Participants nursing;patient Problem: Perioperative Period (Adult) Goal: Signs and Symptoms of Listed Potential Problems Will be Absent, Minimized or Managed (Perioperative Period) Signs and symptoms of listed potential problems will be absent, minimized or managed by discharge/transition of care (reference Perioperative Period (Adult) CPG). Outcome: Ongoing (Interventions Implemented as Appropriate) 08/30/18346 Perioperative Period Problems Assessed (Perioperative Period) situational response;pain Problems Present (Perioperative Period) situational response;pain Plan of Care - Lexie Gonzales RN - 08/29/2018 4:08 PM EDT Problem: Patient Care Overview Goal: Plan of Care Review Outcome: Ongoing (Interventions Implemented as Appropriate) 08/29/18 2364 Coping/Psychosocial Plan Of Care Reviewed With patient [...] Appropriate) 08/29/18 1554 Interdisciplinary Rounds/Family Conf Participants pharmacy;family;patient;upper caser;nursing;physician;advanced practice nurse Plan of Care - Lauren Russell OT - 08/29/2018 2:57 PM EDT 08/29/18 1453 Rehab Evaluation Document Type contact Evaluation Not Performed Comment Orders received, chart reviewed, evaluation to follow. Lauren Russell OT/L Pager [phone] Occupational Therapist Rehabilitation Department Plan of Care [...] NO xxx Marita Castro, PT, DPT Pager: [phone] Inpatient Physical Therapy 2017 PT Evaluation Code Rationale: ?? Diagnosis & Pertinent Co-Morbidities, personal factors, and present illness affecting Plan ofCare: Patient Active Problem List Diagnosis Code ??? Lumbar radicular pain M54.16 ??? Bladder cancer C67.9 ??? History of bladder cancer Z85.51 ??? Chronic pain in right shoulder M25.511, G89.29 ??? Shoulder arthritis M19.019 ??? s/p R RTSA (Dr. 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 She has a cane and a walker. [...] (Bed Mobility) bed rails (HOB elevated) Scoot/Bridge Paul[place] (Bed Mobility) contact guard assist Dsbvfx-mg-Wud [place] (Bed Mobility) minimum assist (75% patient effort);verbal cues required;nonverbal cues required (demo/gesture) Safety Issues (Bed Mobility) decreased use of arms for pushing/pulling Impairments (Bed Mobility) coordination impaired;pain;ROM (range of motion) decreased;strength decreased Comment (Bed Mobility) initial incr time/effort independently to EOB, required min A for trunk to full upright sitting. Can sleep in recliner on D/C Transfer Assessment/Treatment Bed-Chair [place] (Transfers) contact guard assist;nonverbal cues required (demo/gesture);verbal cues required Gwd-Mclhv-Ynm Assistive Device (Transfers) straight cane [place] (Sit-Stand Transfers) contact guard assist;verbal cues required;nonverbal cues required(demo/gesture) Paul[place] (Stand-Sit Transfers) contact guard assist;verbal cues required;nonverbal cues required(demo/gesture) Uzc-Xxieo-Fsu Assistive Device (Transfers) straight cane Maintain Weight Bearing Status (Transfers) able to maintain weight bearing status Safety Issues (Transfers) step length decreased Impairments (Transfers) balance impaired;pain;ROM (range of motion) decreased;strength decreased Comment (Transfers) no overt LOB but incr lateral sway noted. Gait Assessment/Treatment [place] (Gait) contact guard assist;verbal cues required;nonverbal cues [...] with a railing?* 3 - A Little [facility] Basic Mobility Raw Score 18 Basic Mobility Standardized T-Scale Score 43.63 Basic Mobility CMS 0-100% 46.58 [facility] Basic Mobility CMS Modifier CK Motor Skills/Interventions Additional Documentation Balance Skills Training (Group);Therapeutic Exercise (Group) Balance Skills Training Training Strategies (Balance) KAMRAN philip Sitting Balance: Static good balance Sitting Balance: Dynamic good balance Vcy-gk-Ewnfd Balance fair balance Standing Balance: Static good balance Standing Balance: Dynamic fair balance Therapeutic Exercise Comment (Therapeutic Exercise) educated in wrist/hand AROM flex/ext/circles/ deviation/squeeze Orthotics/Prosthetics Additional Documentation Orthosis Management/Training (Group) Orthosis Location/Type Location/Type (Orthosis) upper extremity Upper Extremity (Orthosis) Right:;shoulder immobilizer;shoulder orthosis Orthosis Management/Training Fabrication Detail (Orthosis) khoa Indications (Orthosis) immobilize, protect/position healing structures;restrict motion Indications Comment (Comment) reverse TSA Skills Training (Orthosis) orthosis maintenance;purpose/goals of orthosis;restrictions/precautions Skills Training Comment (Orthosis) positioning, fit, adjustments, wear schedule Wear Schedule (Orthosis) 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 cycle operator Adjustment (Orthosis) orthosis adjustment needed;orthosis not meeting [...] all bed mobility activities Bed Mobility Goal, Paulding Level supervision required Gait Training Goal Gait Training Goal, Date Established 08/29/18 Gait Training Goal, Time to Achieve by discharge Gait Training Goal, Paulding Level conditional independence Gait Training Goal, Assist Device cane, straight (or LRAD) Gait Training Goal, Distance to Achieve 150' Gait Training Goal, Additional Goal 3-5 steps w/ railing, CGA Transfer Training Goal Transfer Training Goal, Date Established 08/29/18 Transfer Training Goal, Time to Achieve by discharge Transfer Training Goal, Activity Type all transfers Transfer Train Goal, Paulding Level conditional independence Transfer Training Goal, Assist [...] slowly resolving. Pt voiding adequately in BR. Gunslinger on. RODNEY in place. Frequent repositioning encouraged. [...] Segundo MD - 08/28/2018 1:20 PM EDT [facility] Operative Note Patient Name: Julissa Etienne : [id number] MR#: [id number] Case Date: 08/28/2018 Surgeon: Surgeon(s) and Role: [...] patient and the informed consent, a green yomba shoshone was placed on the operative shoulder. The [...] (ABNORMAL) Differential, Automated (08/30/2018 3:58 AM EDT) [facility] gist Method Time Signature Neutrophils % 59.5 % [facility] Neutr Abs (ANC) 5.16 1.70 - [facility] 6.10 [facility] x10(3)/[facility] Lymphocytes % 24.4 % [facility] Lymphocytes Abs 2.1 0.9 - 3.2 [facility] x10(3)/[facility] LABORATORY Monocytes % 13.3 % [facility] Monocyte Abs 1.2 (H) 0.3 - 0.9 [facility] x10(3)/[facility] LABORATORY Eosinophils % 2.0 % [facility] Eosinophils Abs 0.2 0.0 - 0.4 [facility] x10(3)/[facility] LABORATORY Basophils % 0.3 % [facility] Basophils Abs 0.0 0.0 - 0.1 [facility] x10(3)[facility] LABORATORY Immature Gran % 0.50 % [facility] Comment: Immature granulocytes(IG's)percentage an d absolute count will include metamyelocytes, myelocytes, and promyelo cytes. Blood smears from CBCs yielding IG's will be scanned manually for concor danhussain. If this scan disagrees with the automated IG or if promyelocytes are not ed, a manual differential will be performed. Monet Gran Abs 0.04 0.00 - 0.04 x10(3)/[facility] MAR Y [facility] Specimen Anatomical Collection Method Collection Time Receive d Time (Source) Location / / Volume Laterality Blood specimen 08/30/2018 3:58 AM 019 4:07 (specimen) EDT AM EDT Resulting Agency Comment Spec In Lab Adriana Sorensen MD HEMATOLOGY ORDERABLES Performing Organization Address City/State/[place] [address] (ABNORMAL) Hemogram (08/30/2018 3:58 AM EDT) Analysis Performed At Patho logist Time Signature WBC 8.7 4.0 - 9.5 [facility] x10(3)/[facility] LAB[facility]AT[facility] RBC 3.69 (L) 4.00 - [facility] x10(6)/[facility] Hemoglobin 11.2 (L) 11.7 - [facility] 15.5 gm/dL [facility] Hematocrit 34.9 (L) 35.7 - [facility] 45.8 % [facility] MCV 94.6 (H) 82.6 - [facility]4 [facility] MCH 30.4 27.1 - [facility] 32.0 pg [facility] MCHC 32.1 31.7 - [facility] 35.0 gm/dL [facility] Platelets 178 145 - 357 [facility] x10(3)/[facility] LABORATORY RDWSD 45.6 37.0 - [facility] 46.0 [facility] RDWCV 13.2 11.5 - [facility] 14.1 % [facility] MPV 9.7 7.6 - 12.9 [facility] LABORATORY nRBC % Auto 0.0 % [facility] nRBC Abs Auto 0.000 0.000 - [facility] 0.000 [facility] x10(3)/[facility] Specimen Anatomical Collection Method Collection Time Receive d Time (Source) Location / / Volume Laterality Blood specimen 08/30/2018 3:58 AM 019 4:07 (specimen) EDT AM EDT Resulting Agency Comment Spec In Lab Adriana Sorensen MD HEMATOLOGY ORDERABLES Performing Organization Address City/State/[place] [address] (ABNORMAL) Basic Metabolic Panel (non-fasting) (08/30/2018 3:58 AM EDT) athologist Signature Glucose Lvl 117 65 - 199 [facility] mg/dL [facility] Comment: Diabetes: >=200 mg/dL plus symp toms BUN 13 8 - 18 mg/dL [facility] Creatinine 0.57 (L) 0.70 - 1.20 mg/dL [facility] Sodium 142 135 - 145 mmol/L [facility] Potassium 4.2 3.5 - 5.0 mmol/L [facility] Comment: Please note: ??Patients with WBC >100,00 0 may have falsely elevated Potassium levels. ??For accurate Potassium quantif ication in these patients send serum separator tube (gold top) for subsequent determinations. ??Contact the Clinical Chemistry Laboratory if there are any qu estions. Chloride 105 98 - 107 mmol/L [facility] CO2 28 22 - 31 mmol/L [facility] Anion Gap 9 5 - 15 mmol/L [facility] Calcium 8.4 (L) 8.5 - 10.5 mg/dL [facility] Estimated GFR 91 >=60 mL/min/1.73 m?? [facility] Comment: The eGFR was calculated using the CKD-EP I equation. As with all creatinine based estimates of kidney function, eGFR values calculated with the CKD-EPI equation are not accurate in patients wi th acute kidney failure, extremes of body mass or the acutely ill. [email or web address] eGFR 105 >=60 mL/min/1.73 m?? [facility] Comment: The eGFR was calculated using the CKD-EP I equation. As with all creatinine based estimates of kidney function, eGFR values calculated with the CKD-EPI equation are not accurate in patients wi th acute kidney failure, extremes of body mass or the acutely ill. [email or web address] Specimen Anatomical Collection Method Collection Time Receive d Time (Source) Location / / Volume Laterality Blood specimen 08/30/2018 3:58 AM 019 4:07 (specimen) EDT AM EDT Resulting Agency Comment Spec In Lab Amanda Segundo MD CHEMISTRY ORDERABLES Performing Organization Address City/State/[place] [address] (ABNORMAL) Differential, Automated (08/29/2018 4:31 AM EDT) [facility] gist Method Time Signature Neutrophils % 70.5 % [facility] Neutr Abs (ANC) 7.73 (H) 1.70 - [facility] 6.10 [facility] x10(3)/[facility] LABORATORY Lymphocytes % 17.2 % [facility] LABORATORY Lymphocytes Abs 1.9 0.9 - 3.2 [facility] x10(3)/[facility] LABORATORY Monocytes % 11.1 % [facility] LABORATORY Monocyte Abs 1.2 (H) 0.3 - 0.9 [facility] x10(3)/[facility] LABORATORY Eosinophils % 0.4 % [facility] LABORATORY Eosinophils Abs 0.0 0.0 - 0.4 [facility] x10(3)/[facility] LABORATORY Basophils % 0.3 % [facility] LABORATORY Basophils Abs 0.0 0.0 - 0.1 [facility] x10(3)/[facility] LABORATORY Immature Gran % 0.50 % [facility] LABORATORY Comment: Immature granulocytes(IG's)percentage an d absolute count will include metamyelocytes, myelocytes, and promyelo cytes. Blood smears from CBCs yielding IG's will be scanned manually for concor dance. If this scan disagrees with the automated IG or if promyelocytes are not ed, a manual differential will be performed. Monet Gran Abs 0.06 (H) 0.00 - 0.04 x10(3)/[facility] LABORATORY Specimen Anatomical Collection Method Collection Time Receive d Time (Source) Location / / Volume Laterality Blood specimen 08/29/2018 4:31 AM 019 4:45 (specimen) EDT AM EDT Resulting Agency Comment Spec In Lab Adriana Sorensen MD HEMATOLOGY ORDERABLES Performing Organization Address City/State/[place] [address] (ABNORMAL) Hemogram (08/29/2018 4:31 AM EDT) Analysis Performed At Patho logist Time Signature WBC 11.0 (H) 4.0 - 9.5 [facility] x10(3)/[facility] LABORATORY RBC 3.79 (L) 4.00 - [facility] 5.21 [facility] x10(6)/[facility] LABORATORY Hemoglobin 11.5 (L) 11.7 - [facility] 15.5 gm/dL [facility] LABORATORY Hematocrit 35.2 (L) 35.7 - [facility] 45.8 % [facility] LABORATORY MCV 92.9 82.6 - [facility] 94.4 [facility] LABORATORY MCH 30.3 27.1 - [facility] 32.0 pg [facility] LABORATORY MCHC 32.7 31.7 - [facility] 35.0 gm/dL [facility] LABORATORY Platelets 193 145 - 357 [facility] x10(3)/[facility] LABORATORY RDWSD 43.8 37.0 - [facility] 46.0 [facility] LABORATORY RDWCV 12.8 11.5 - [facility] 14.1 % [facility] LABORATORY MPV 9.7 7.6 - 12.9 [facility] nRBC % Auto 0.0 % [facility] LABORATORY nRBC Abs Auto 0.000 0.000 - [facility] 0.000 [facility] x10(3)/[facility] LABORATORY Specimen Anatomical Collection Method Collection Time Receive d Time (Source) Location / / Volume Laterality Blood specimen 08/29/2018 4:31 AM 019 4:45 (specimen) EDT AM EDT Resulting Agency Comment Spec In Lab Adriana Sorensen MD HEMATOLOGY ORDERABLES Performing Organization Address City/State/[place] [address] (ABNORMAL) Basic Metabolic Panel (non-fasting) (08/29/2018 4:31 AM EDT) athologist Signature Glucose Lvl 117 65 - 199 [facility] mg/dL [facility] LABORATORY Comment: Diabetes: >=200 mg/dL plus symp toms BUN 9 8 - 18 mg/dL [facility] LABORATORY Creatinine 0.62 (L) 0.70 - 1.20 mg/dL [facility] LABORATORY Sodium 142 135 - 145 mmol/L [facility] LABORATORY Potassium 3.8 3.5 - 5.0 mmol/L [facility] LABORATORY Comment: Please note: ??Patients with WBC >100,00 0 may have falsely elevated Potassium levels. ??For accurate Potassium quantif ication in these patients send serum separator tube (gold top) for subsequent determinations. ??Contact the Clinical Chemistry Laboratory if there are any qu estions. Chloride 106 98 - 107 mmol/L [facility] LABORATORY CO2 26 22 - 31 mmol/L [facility] LABORATORY Anion Gap 10 5 - 15 mmol/L [facility] LABORATORY Calcium 8.7 8.5 - 10.5 mg/dL [facility] LABORATORY Estimated GFR 88 >=60 mL/min/1.73 m?? [facility] LABORATORY Comment: The eGFR was calculated using the CKD-EP I equation. As with all creatinine based estimates of kidney function, eGFR values calculated with the CKD-EPI equation are not accurate in patients wi th acute kidney failure, extremes of body mass or the acutely ill. [email or web address] eGFR 102 >=60 mL/min/1.73 m?? [facility] LABORATORY Comment: The eGFR was calculated using the CKD-EP I equation. As with all creatinine based estimates of kidney function, eGFR values calculated with the CKD-EPI equation are not accurate in patients wi th acute kidney failure, extremes of body mass or the acutely ill. [email or web address] Specimen Anatomical Collection Method Collection Time Receive d Time (Source) Location / / Volume Laterality Blood specimen 08/29/2018 4:31 AM 019 4:45 (specimen) EDT AM EDT Resulting Agency Comment Spec In Lab Amanda Segundo MD CHEMISTRY ORDERABLES Performing Organization Address City/State/[place] [address] XR Shoulder Right (Generic) [...] please contact e number below. ? Narrative 08/28/2018 3:53 PM [...] shoulder. No gross malalignment. Procedure Note Angelica London MD - 08/28/2018Formattin g of this note [...] ORDR/RSLT documented in this encounter Visit Diagnoses Diagnosis s/p R RTSA (Dr. Segundo), 08/28/18 - Primary Shoulder arthritis Unspecified arthropathy, shoulder region documented in this encounter Admitting Diagnoses Diagnosis Shoulder arthritis Unspecified arthropathy, shoulder region documented in this encounter Administered Medications Inactive Administered Medications - up to 3 most recent administrations Medication Order MAR Action Action Date Dose Rate Site acetaminophen (TYLENOL) tablet Given 08/28/2018 9:03 AM EDT 1,00 0 mg 1,000 mg 1,000 mg, Oral, ONCE, 1 dose, On Mon08/28/18 at 0915, Administer with SIP of H2O only., Day of Surgery (Day of Procedure), Routine acetaminophen (TYLENOL) tablet 1,000 mg Given 08/30/2018 8:19 AM EDT 1,000 mg 1,000 mg, Oral, EVERY 8 [...] Given 08/29/2018 9:12 AM EDT 81 mg ceFAZolin (ANCEF) 1g in dextrose 5% Restarted 08/29/2018 8:00 AM EDT 1 g 100 mL/hr 50mL 1 g, Intravenous, EVERY 8 HOURS, 3 doses, First dose on Mon08/28/18 at 1530, Last dose on Mon08/29/18 at 0730, Administer over 30 Minutes, Adjust to 4 hours from intraoperative dose. * Beta-lactam based antibiotics (eg. Ampicillin, Cefazolin, Aztreonam) should be administered within 4 hours of the preceding intraoperative dose. * Vancomycin, Flouroquinolones, Clindamycin, Gentamicin, and Metronidazole should be administered within 8 hours of the preceding intraoperative dose., Recovery (Recovery-Hospital Unit), Indication for (Active or Suspected): Prophylaxis New Bag 08/29/2018 12:20 AM EDT 1 g 100 mL/hr New Bag 08/28/2018 4:10 PM EDT 1 g 100 mL/hr citalopram (CeleXA) tablet 20 mg Given 08/30/2018 [...] If pain not relieved, call provider., Routine ketorolac (TORADOL) injection 15 mg Given 08/29/2018 1:55 PM EDT 15 mg 15 mg, Intravenous, EVERY 6 HOURS SCHEDULED, 4 doses, First dose on Mon08/28/18 at 1400, Last dose on Mon08/29/18 at 0900, Routine Given 08/29/2018 6:19 AM EDT 15 mg Given 08/28/2018 8:23 PM EDT 15 mg lactated ringers infusion New Bag 08/28/2018 11:10 AM EDT 1,000 mL, at 100 mL/hr, Intravenous, CONTINUOUS, Starting on Mon08/28/18 at 0915, Until Mon08/28/18 at 1331, Day of Surgery (Day of Procedure) New Bag 08/28/2018 9:02 AM EDT 1,000 mLs 100 mL/hr lidocaine (XYLOCAINE) 10 mg/mL (1 %) injection Given 0 08/28/2018 9:02 AM EDT 3 mg 3 mg 3 mg (0.3 mL), Subcutaneous, ONCE PRN, 1 dose, Starting on Mon08/28/18 at 0850, Until Mon08/28/18 at 0902, for discomfort with PIV insertion, Day of Surgery (Day of Procedure), Routine midazolam (PF) (VERSED) injection 1 mg Given 08/28/2018 10:20 AM EDT 0.5 mg 1 mg, Intravenous, EVERY 5 MIN PRN, Starting on Mon08/28/18 at 0953, Until Mon08/28/18 at 1331, Sleep, or prior to injection of local anesthetic, Hold for delirium/agitation. (Maximum dose 5 mg)., Day of Surgery (Day of Procedure), Routine Given 08/28/2018 10:10 AM EDT 1 mg ondansetron (ZOFRAN) injection 4 mg Given 08/30/2018 11:55 AM EDT 4 mg 4 mg, Intravenous, EVERY 8 HOURS PRN, Starting on Mon08/28/18 at 1737, Until [facility] 08/30/18 at 1914, Nausea, Vomiting, May repeat [...] Given 08/29/2018 9:17 AM EDT 5 mLs sodium chloride 0.9% infusion New Bag 08/28/2018 1:34 PM EDT 75 mL/hr 75 mL/hr 75 mL/hr, Intravenous, CONTINUOUS, Starting on Mon08/28/18 at 1345, Until Mon08/29/18 at 0144, Recovery (Recovery-Hospital Unit) documented in this encounter Active and Recently [...] RN) 0100 (Not Given - Provider: Angelica Cornejo RN - Reason: Patient/family refused)0819 (Given - Provider: [...] RN) 0020 (New Bag - Provider: Semaj Crawford RN)0050 (Stopped - Provider: Semaj Crawford RN)0632 (Stopped - Provider: Semaj Crawford RN - Comment: IV stopped, possible IV [...] 2g in dextrose 5% 100 mL (COMPLETED) 113 (Given - Provider: Glenn Gibbons MD) 2 g, Intravenous, EVERY 3 HOURS, 1 dose, First dose on Mon08/28/18 at 0915, Administer over 30 Minutes, Redose after 3 hours., Intra-Operative (Intra- Procedure), Indication for (Active or Suspected): Prophylaxis citalopram (CeleXA) tablet 20 mg 911 (Given - P rovider: Lexie Gonzales RN) 08 (Given - Provider: Lexie Gonzales RN) 20 mg, Oral, DAILY, First dose on Mon at 0900, Until Discontinued, Routine gabapentin (NEURONTIN) capsule 300 mg 2022 (Given - Pr ovider: Semaj Crawford RN) 221 (Given - Provider: Angelica Cornejo RN) 300 mg, Oral, NIGHTLY, First dose on Mon08/28/18 at 2100, Until Discontinued, Routine ketorolac (TORADOL) injection 15 mg (COMPLETED) 133 ( Given - Provider: Rosalia Biggs RN)2022 (Given - Provider: Semaj Crawford RN) 06 (Given - Provider: Semaj Crawford, RADHA)1355 (Given - Provider: Lexie Gonzales RN) 15 mg, Intravenous, EVERY 6 HOURS SCHEDU LED, 4 doses, First dose on Mon08/28/18 at 1400, Last dose on Mon08/29/18 at 0900, Routine polyethylene glycol (MIRALAX) packet 17 g 2100 (Not Gi swapnil - Provider: Semaj Crawford RN - Reason: Patient/family refused) 0911 (Given - Provider: Lexie Gonzales RN)2100 (Not Given - Provider: Angelica Cornejo RN - Reason: Patient/family refused) 0820 (Given - Provider: Lexie Gonzales RN) 17 g, Oral, 2 TIMES DAILY, First dose on Mon08/28/18 at 2100, Until Discontinued, Routine senna-docusate (PERICOLACE) 8.6-50 mg per tablet 2 tab let 2100 (Not Given - Provider: Semaj Crawford RN - Reason: Patient/family refused) 0911 (Given - Provider: Lexie Gonzales RN - Comment: patient dropped one on floor and requested not to replace it)2099 (Not Given - Provider: Angelica Cornejo RN - Reason: Patient/family refused) 0820 (Given - Provider: Lexie Gonzales RN) 2 tablet, Oral, 2 TIMES DAILY, First dos e on Mon08/28/18 at 2100, Until Discontinued, Routine sodium chloride 0.9 % flush 5 mL 2099 (Not Given - Pro vider: Semaj Crawford RN - Reason: See comment - Comment: iv infusing) 0917 (Given - Provider: Lexie Gonzales RN)2100 (Given - Provider: Angelica Cornejo RN) 0823 (Given - Provider: Lexie Gonzales RN) 5 mL, Intravenous, 2 TIMES DAILY, First [...] at 100 mL/hr, Intravenous, CON TINUOUS, Starting 08/28/18 at 0915, Until 08/28/18 at 1331, Day of Surgery (Day of Procedure) sodium chloride 0.9% infusion () 1334 (New Bag - Provider: Rosalia Biggs, RADHA) 75 mL/hr, at 75 mL/hr, Intravenous, CONT INUOUS, Starting 08/28/18 at 1345, Until 08/29/18 at 0144, Recovery (Recovery-Hospital Unit) PRN Medication Order 08/28/2018 08/29/2018 08/30/2018 bacitracin injection (CANCELED) 1149 (Given - Provider : Amanda Segundo MD - Comment: Mixed with 1000 mL normal saline for PRN use via pulse lavage.) ONCE PRN, Starting 08/28/18 at 1149, Until Fadia 08/30/18 at 1914, Intra- Operative (Intra-Procedure), Routine HYDROmorphone (DILAUDID) tablet 2 mg(Linked Group 1) 0912 (See Alternative - Provider: Lexie Gonzales RN)1351 (See Alternative - Provider: Lexie Gonzales RN)1751 (See Alternative - Provider: Lexie Gonzales RN)2214 (See Alternative - Provider: Angelica Cornejo RN) 0819 (See Alternative - Provider: Lexie Gonzales RN) 2 mg, Oral, EVERY 4 HOURS PRN, Starting 08/28/18 at 1331, Until Fadia 08/30/18 at 1914, Pain, mild pain (1-3), For mild pain (1-3). Do not exceed 6 mg in 4 hours. If pain not relieved, call provider., Routine HYDROmorphone (DILAUDID) tablet 4 mg(Linked Group 1) 0912 (Given - Provider: Lexie Gonzales RN)1351 (Given - Provider: Lexie Gonzales RN)1751 (Given - Provider: Lexie Gonzales RN)2214 (Given - Provider: Angelica Cornejo, RADHA) 0819 (Given - Provider: Lexie Gonzales RN) 4 mg, Oral, EVERY 4 HOURS PRN, Starting 08/28/18 at 1331, Until Fadia 08/30/18 at 1914, Pain, moderate pain (4-6), For moderate pain (4-6). Do not exceed 6 mg in 4 hours. If pain not relieved, call provider., Routine HYDROmorphone (DILAUDID) tablet 6 mg(Linked Group 1) 0912 (See Alternative - Provider: Lexie Gonzales, RADHA)1351 (See Alternative - Provider: Lexie Gonzales, RADHA)1751 (See Alternative - Provider: Lexie Gonzales RN)2214 (See Alternative - Provider: Angelica Cornejo RN) [...] (C OMPLETED) 0902 (Given - Provider: Yojana Reyna RN) 3 mg (0.3 mL), Subcutaneous, ONCE PRN, [...] Yojana Reyna RN)1020 (Given - Provider: Yojana Reyna, RADHA) 1 mg, Intravenous, EVERY 5 MIN PRN, Star ting 08/28/18 at 0953, Until 08/28/18 at 1331, Sleep, or prior to injection of local anesthetic, Hold for delirium/agitation. (Maximum dose 5 mg)., Day of Surgery (Day of Procedure), Routine ondansetron (ZOFRAN) injection 4 mg 1155 (Given - Provider: Lexie Gonzales RN) 4 mg, Intravenous, EVERY 8 HOURS PRN, St arting e 08/28/18 at 1737, Until Fadia 08/30/18 at 1914, Nausea, Vomiting, May repeat 4 mg IV once in 30 minutes for unrelieved nausea or vomiting. If multiple a ntiemetics are ordered, use ondansetron first, prochlorperazine second, metoclopramide third., Routine sodium chloride 0.9 % flush 5-20 mL 5-20 mL, Intravenous, EVERY 1 MIN PRN, S tarting Mon08/28/18 at 1737, Until Fadia 08/30/18 at [...]
Routine documented in this encounter Care Teams Equipment Manager Relationship Specialty Start Date End Date Mellissa Garnett MD PCP - General 03/09/[address] [place] [address] documented as of this encounter
--- OUTSIDE RECORDS SUMMARY | 2021-12-28 14:59 | XMS_ITS | Encounter Summary ---
:1945 Author Organization [facility] [place] [address] Care Team Providers Name Role Phone Mellissa Garnett MD Primary Care Provider Encounter Details Date Type Department Care Team Description 08/06/2010 Orders Only Pain Abdelrahman Anthony MD [facility] [place] [address] PAIN CLINIC [phone] [place], [place] [address] (Wo rk) Social History Tobacco Use Types Packs/Day Years Used Date Never Assessed Alcohol Habits Answer Date Recorded How often [...] Procedure Name Priority Date/Time Associated Comments Diagnosis FILM LIBRARY STORAGE Routine 08/06/2010 11:27 PM Results for this ONLY ULTRASOUND EDT procedure ar e in STUDY the results section. documented in this encounter Results FILM LIBRARY- STORAGE ONLY ULTRASOUND STUDY (08/06/2010 11:27 PM EDT) Specimen (Source) Anatomical Collection Method Collection Time Re ceived Time Location / / Volume Laterality 08/06/2010 11:27 PM EDT Narrative RAD - 08/22/2013 12:07 PM EDT This is a non-reportable exam. Procedure Note Carl Ch - 08/22/2013Formatting of t his note might be different from the original. This is a non-reportable exam. Abdelrahman Anthony MD IMG FILM LIBRARY ORDERABLES Performing Organization Address City/State/ZIP Code Phon e Number DH RAD RAD [address] [place] [address] documented in this encounter Visit Diagnoses Not on filedocumented in this encounter Care Teams Mail Clerk Bills Relationship Specialty Start Date End Date Mellissa Garnett MD PCP - General 03/09/[address] [place] [address] documented as of this encounter
--- OUTSIDE RECORDS SUMMARY | 2021-12-28 14:59 | XMS_ITS | Encounter Summary ---
:1945 [place] [address] Care Team Providers Name Role Phone Mellissa Garnett MD Primary Care Provider Encounter Details Date Type Department Care Team Description 08/17/2012 Hospital Encounter Radiology Library at [facility], Christelle Gore, [place] [facility] [place] [address] DIAGNOSTIC RADIOLOGY [phone] [place], [place] [address] (Wo rk) Social History Tobacco [...] Dispensed Refills Start Date End Date aspirin 325 mg tablet Take 325 mg by 0 05/19/2014 mouth daily. ergocalciferol Take 50,000 Units 0 (ERGOCALCIFEROL) 50,000 by mouth every 30 unit capsule days. For 3 months Cholecalciferol, Vitamin Take 5,000 Units 0 10/11/2018 D3, (VITAMIN D) 1,000 unit by mouth daily. Cap [id number] Take by mouth. 0 06/19/2015 149-HYAL (GLUCOS CHOND CPLX ADVANCED ORAL) Lunoxos-Svbtbhark-Umea Tab 0 0 05/19/2014 VITAMIN E ACETATE (VITAMIN 0 201 0 08/16/2018 E ORAL) documented as of this encounter Plan of Treatment Not on filedocumented as of this encounter Procedures Procedure Name Priority Date/Time Associated Diagnosis Comme nts FILM LIBRARY Routine 08/17/2012 12:00 AM Screening Results for this STORAGE ONLY MAMMO EDT procedure are in the results section. documented in this encounter Results Film Library- Storage only Mammo (08/17/2012 12:00 AM EDT) Specimen (Source) Anatomical Location Collection Method / Collectio n Time Received Time / Laterality Volume Narrative RAD - 12/30/2015 4:16 PM EDT This exam is for storage only and is aut o-finalizing. Jen Maurice MD IMJacinda FILM LIBRARY ORDERABLES Performing Organization Address City/State/ZIP Code Phon e Number [place], [place] documented in this encounter Visit Diagnoses Diagnosis Screening Screening for unspecified condition documented in this encounter Care Teams Shoe Stainer Relationship Specialty Start Date End Date Mellissa Garnett MD PCP - General 03/09/[address] [place] [address] documented as of this encounter
--- OUTSIDE RECORDS SUMMARY | 2021-12-28 14:59 | XMS_ITS | Encounter Summary ---
:1945 [place] [address] Care Team Providers Name Role Phone Mellissa Garnett MD Primary Care Provider Encounter Details Date Type Department Care Team Description 09/16/2013 Hospital Encounter Radiology Library at [facility], Christelle Gore, [place] [facility] [place] [address] DIAGNOSTIC RADIOLOGY [phone] [place] [id number] (Wo rk) Social History Tobacco Use Types [...] 325 mg tablet Take 325 mg by mouth 0 05/19/2014 daily. Cholecalciferol, Vitamin Take 5,000 Units by 0 10/11/2018 D3, (VITAMIN D) 1,000 mouth daily. unit Cap [id number] Take by mouth. 0 06/19/2015 149-HYAL (GLUCOS CHOND CPLX ADVANCED ORAL) Bnbzgwh-Wriuttbhg-Yoxv 0 01/20/2010 Tab VITAMIN E ACETATE 0 01/20/2010 019 (VITAMIN E ORAL) documented as of this encounter Plan of Treatment Not on filedocumented as of this encounter Procedures Procedure Name Priority Date/Time Associated Diagnosis Comme nts FILM LIBRARY Routine 09/16/2013 12:00 AM Screening Results for this STORAGE ONLY MAMMO EDT procedure are in the results section. documented in this encounter Results Film Library- Storage only Mammo (09/16/2013 12:00 AM EDT) Specimen (Source) Anatomical Location Collection Method / Collectio n Time Received Time / Laterality Volume Narrative RAD - 12/30/2015 3:54 PM EDT This exam is for storage only and is aut o-finalizing. Jen Maurice MD IMG FILM LIBRARY ORDERABLES Performing Organization Address City/State/ZIP Code Phon e Number [place], [place] documented in this encounter Visit Diagnoses Diagnosis Screening Screening for unspecified condition documented in this encounter Care Teams Inspector Hot Forgings Relationship Specialty Start Date End Date Mellissa Garnett MD PCP - General 03/09/[address] [place] [address] documented as of this encounter
--- OUTSIDE RECORDS SUMMARY | 2021-12-28 14:59 | XMS_ITS | Encounter Summary ---
:1945 Author Organization [facility] [place] [address] Care Team Providers Name Role Phone Mellissa Garnett MD Primary Care Provider Encounter Details Date Type Department Care Team Description 12/16/2010 Orders Only Pain Management at L Abdelrahman Membreno MD [facility] [place] [address] PAIN CLINIC [phone] [place], [place] [address] (Wo rk) Social History Tobacco [...] Associated Diagnosis Comme nts FILM LIBRARY Routine 12/16/2010 11:00 AM Results for this STORAGE ONLY PAIN EDT procedure are in CLINIC C ARM the results section. documented in this encounter Results FILM LIBRARY-STORAGE ONLY PAIN CLINIC C-ARM (12/16/2010 11:00 AM EDT) Specimen (Source) Anatomical Collection Method Collection Time Re ceived Time Location / / Volume Laterality 12/16/2010 11:00 AM EDT Narrative RAD - 08/22/2013 12:56 PM EDT This is a non-reportable exam. Procedure Note Carl Ch 08/22/2013Formatting of t his note might be different from the original. This is a non-reportable exam. Abdelrahman Anthony MD IMG FILM LIBRARY ORDERABLES Performing Organization Address City/State/ZIP Code [facility] e Number DH RAD RAD [address] [facility] [place] [address] documented in this encounter Visit Diagnoses Not on filedocumented in this encounter Care Teams Clinical Aide Relationship Specialty Start Date End Date Mellissa Garnett MD PCP - General 03/09/[address] [place] [address] documented as of this encounter
--- OUTSIDE RECORDS SUMMARY | 2021-12-28 14:59 | XMS_ITS | Encounter Summary ---
:1945 Author Organization [facility] [place] [address] Care Team Providers Name Role Phone Mellissa Garnett MD Primary Care Provider Reason for Visit Reason Comments Radiculopathy Lumbar Encounter Details Date Type Department Care Team Description 12/16/2010 Office Visit Pain Management at Abdelrahman Anthony Lumba r radicular pain (Primary Dx); [facility] Thoracic or lumbosacral neuritis or radi culitis, unspecified [facility] [address] [place] [facility] [address] [place] [address] [phone] Social History Tobacco Use Types Packs/Day Years [...] Sign Reading Time Taken Comments Blood Pressure 171/85 12/16/2010 11:00 AM EDT Pulse 72 12/16/2010 11:00 AM EDT Temperature - - Respiratory Rate - - Oxygen Saturation 98% 12/16/2010 11:00 AM EDT Inhaled Oxygen Concentration - - Weight 76.7 kg (169 lb) 12/16/2010 10:40 AM EDT Height 160 cm (5' 3) 12/16/2010 10:40 AM EDT Body Mass Index 29.94 12/16/2010 10:40 AM EDT documented in this encounter Patient Instructions Patient InstructionsLashell Mendez RN - 12/16/2010 11:15 AM EDT Pain Management Center Discharge Instructions: You were seen by Dr. Abdelrahman Anthony MD who performed lumbar epidural steroid injection. [x] You may resume your normal activities: tomorrow. You may shower today. DO NOT tub bathe, use whirlpools, hot tubs or pool therapy for 2 days. Remove Band-Aid(s) later today/tomorrow. Do not drive until tomorrow. Use caution walking/climbing stairs as you may be unsteady on your feet. You may use your usual medications, including pain medications, as directed, unless otherwise instructed. You may use an ice pack as needed for the first 24 hours, on for 20 minutes then off for 20 minutes.Do not apply heat today. Attempt to empty your bladder 4-6 hours after your procedure. You received the following medications: Depo-Medrol 120 mg, Lidocaine and Omnipaque (contrast dye). During regular business hours, please phone the Pain Management Center at for appointments or with any questions or if the following or other troubling symptoms develop: 1) Prolonged dizziness or weakness (more than 1 day). 2) Localized swelling, redness or drainage at the injection site(s). 3) Temperature of 101 degrees that lasts for more than 4 hours. After 5 PM or on weekends, call and ask for Pain Clinic provider on-call. If you are unable to reach the Pain Management Center and have a complication, please call your Primary Care Provider or proceed to your local emergency department. Lashell Mendez RN BSN Special instructions documented in this encounter Progress Notes Lashell Mendez RN - 12/16/2010 10:46 AM EDT Pre-Procedure Screening Questions: 1. Status: No 2. 3. Patient states they have a high lift driver to transport after procedure? Yes 4. Patient taking antibiotics at present? No 5. NPO per Pain Management Center protocol? No 6. 7. Patient diabetic: No __ borderline (not treated with medications) __ managed with oral medications __ managed with injected medications 8. Patient routinely taking anticoagulants ? No Date stopped Current INR Patient Vital Signs documented in Doc Flowsheets associated with this encounter. Patient Discharge Instructions were reviewed with patient and copy provided to patient. documented in this encounter Procedure Notes Abdelrahman Anthony MD - 12/16/2010 11:18 AM EDTAssociated Order(s): EPIDURAL STEROID INJECTION Procedure(s): EPIDURAL STEROID INJECTION Pre-Procedure Diagnose(s): Lumbar radicular pain STERIOID INJECTION PROCEDURE NOTE COMMENTST: The patient has back and bilat LE pain with. 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 Julissa Etienne has been referred to the Pain Management Center for lumbar epidural steroid injection. Julissa Etienne was greeted by the nurse who verified patients name and . Patient was then takento the fluoroscopy suite. Julissa Etienne was interviewed and the medical record reviewed. There were no medical, pharmacologic, radiographic, or other structural contraindications to attempting fluoroscopically guided L4-L5 injection. Risks and expected side effects as well as potential benefits of the procedure were reviewed with Julissa Etienne and his voiced concerns addressed. The patient consent form was signed and witnessed. Standard time-out procedure was performed. Julissa Etienne was placed in the prone position on the fluoroscopy table and automated blood pressure cuff and pulse oximeter applied. The skin entry point for entering/approaching the epidural spaceby a mildine L4-L5 and marked. Following thorough chlorhexadine preparation of the skin and draping and 1% lidocaine infiltration of the skin entry point and subcutaneous tissues, a 18 gauge Touhy needle was placed under fluoroscopic guidance and with loss of resistance technique into the epidural space. Needle tip placement and depth were aided and confirmed by fluoroscopy. There was no paresthesia or return of blood or CSF through the needle. 1 cc's of Omnipaque 240 were injected with clear epidural spread confirmed with fluoroscopy.120 mg depomedrol was injected. There was not any unusual discomfort expressed by Julissa Etienne. Julissa Etienne's vital signs were stable throughout the procedure and were as recorded in nursing records. Follow up plans and appointments were discussed with Julissa Etienne. Post procedure instruction was given as documented in nursing records and having met discharge criteria he was discharged from [facility]. COMMENTS: She will f/u as needed.Consider repeat injection or consultation in the pain clinic or Spine Center if this injection is not effective. . documented in this encounter Miscellaneous Notes Miscellaneous - Blas, Enamel Finisher - 12/22/2010 6:11 AM EDT documented in this encounter Plan of Treatment Not on filedocumented as of this encounter Results Epidural steroid injection (12/16/2010 11:18 AM EDT) Abdelrahman Anthony MD NEUROLOGY ORDERABLES documented in this encounter Visit Diagnoses Diagnosis Lumbar radicular pain - Primary Thoracic or lumbosacral neuritis or radi culitis, unspecified Thoracic or lumbosacral neuritis or radi culitis, unspecified documented in this encounter Administered Medications Inactive Administered Medications - up to 3 most recent administrations Medication Order MAR Action Action Date Dose Rate Site iohexol (OMNIPAQUE) injection 50 mL Given 12/16/2010 11:12 AM EDT 1 mL 50 mL, Intravenous, ONCE PRN, 1 dose, Starting on Fadia 12/16/10 at 1111, Until Fadia 12/16/10 at 1112, Per Protocol, Routine methylPREDNISolone acetate (depo-MEDROL) Given 12/16/2010 11:30 AM EDT 120 mg injection 40 mg 40 mg, Intramuscular, ONCE, 1 dose, On Fadia 12/16/10 at 1130, Routine documented in this encounter Care Teams Drain Tile Machine Operator Relationship Specialty Start Date End Date Mellissa Garnett MD PCP - General 03/09/[address] [place] [address] documented as of this encounter
--- OUTSIDE RECORDS SUMMARY | 2021-12-28 14:59 | XMS_ITS | Encounter Summary ---
:1945 Author Organization [facility] [place] [address] Care Team Providers Name Role Phone Mellissa Garnett MD Primary Care Provider Encounter Details Date Type Department Care Team Description 07/02/2010 Orders Only Pain Abdelrahman Anthony MD [facility] [place] [address] [facility]IN [facility]INIC [phone] [place], [place] [address] (Wo rk) Social History Tobacco [...] Associated Comments Diagnosis FILM LIBRARY STORAGE Routine 07/02/2010 11:28 PM Results for this ONLY ULTRASOUND EDT procedure ar e in STUDY the results section. documented in this encounter Results FILM LIBRARY- STORAGE ONLY ULTRASOUND STUDY (07/02/2010 11:28 PM EDT) Specimen (Source) Anatomical Collection Method Collection Time Re ceived Time Location / / Volume Laterality 07/02/2010 11:28 PM EDT Narrative [facility] - 08/22/2013 12:07 PM EDT This is a non-reportable exam. Procedure Note Carl Ch - 08/22/2013Formatting of t his note might be different from the original. This is a non-reportable exam. Abdelrahman Anthony MD IMG FILM LIBRARY ORDERABLES Performing Organization Address City/State/ZIP Code Phon e Number [facility] [address] [facility] [place] [address] documented in this encounter Visit Diagnoses Not on filedocumented in this encounter Care Teams Filer Metal Patterns Relationship Specialty Start Date End Date Mellissa Garnett MD PCP - General 03/09/[address] [place] [address] documented as of this encounter
--- OUTSIDE RECORDS SUMMARY | 2021-12-28 14:59 | XMS_ITS | Encounter Summary ---
:1945 Author Organization [facility] [place] [address] Care Team Providers Name Role Phone Mellissa Garnett MD Primary Care Provider Encounter Details Date Type Department Care Team Description 12/27/2010 Orders Only Pain Management at Abdelrahman Membreno MD [facility] [place] [address] PAIN CLINIC [phone] [place], [place] [address] (Wo rk) Social History Tobacco [...] Associated Diagnosis Comme nts FILM LIBRARY Routine 12/27/2010 11:30 PM Results for this STORAGE ONLY DX EDT procedure ar e in SPINE the results section. documented in this encounter Results FILM LIBRARY- STORAGE ONLY DX SPINE (12/27/2010 11:30 PM EDT) Specimen (Source) Anatomical Collection Method Collection Time Re ceived Time Location / / Volume Laterality 12/27/2010 11:30 PM EDT Narrative RAD - 08/22/2013 12:56 PM EDT This is a non-reportable exam. Procedure Note Carl Ch - 08/22/2013Formatting of t his note might be different from the original. This is a non-reportable exam. Abdelrahman Anthony MD IMG FILM LIBRARY ORDERABLES Performing Organization Address City/State/ZIP Code [facility] e Number [facility] [address] [facility] [place] [address] documented in this encounter Visit Diagnoses Not on filedocumented in this encounter Care Teams Care Professionals Relationship Specialty Start Date End Date Mellissa Garnett MD PCP - General 03/09/[address] [place] [address] documented as of this encounter
--- OUTSIDE RECORDS SUMMARY | 2021-12-28 14:59 | XMS_ITS | Encounter Summary ---
:1945 Author Organization [place] [address] Care Team Providers Name Role Phone Mellissa Garnett MD Primary Care Provider Reason for Visit Reason Comments Follow-up Encounter Details Date Type Department Care Team Description 03/06/2013 Procedure visit Urology at [facility] Maliha Schultz Bladder cancer [facility] MD Greg (Primary Dx) [place] [address] UROLOGY DEPT. [phone] [place], [place] [address] Social History Tobacco Use Types [...] Sign Reading Time Taken Comments Blood Pressure 125/73 03/06/2013 2:30 PM EST Pulse 73 03/06/2013 2:30 PM EST Temperature - - Respiratory Rate - - Oxygen Saturation - - Inhaled Oxygen Concentration - - Weight 72.6 kg (160 lb) 03/06/2013 2:12 PM EST Height 160 cm (5' 3) 03/06/2013 2:12 PM EST Body Mass Index 28.34 03/06/2013 2:12 PM EST documented in this encounter Patient Instructions Patient InstructionsMartha Mane LPN - 03/06/2013 2:32 PM EST Instructions following Cystoscopy Activity: As tolerated [...] to void please call our office at [phone] before 5PM or [phone] after hours. Please call if: * you have copious blood in your urine * fevers greater than 101.3 F * you are unable to void The number for questions is [phone] before 5 PM weekdays and [phone] after 5 PM and weekends. Follow-up: Void by the clock every 2 hours. Follow up in 1 year for a cystoscopy. documented in this encounter Progress Notes Maliha Schultz MD - 03/07/2013 8:13 AM EST This 67 year old woman presents for cystoscopy because of a history of bladder tumors. Her first andlast tumor was in May 1994 when she had a Gr II/IV tumor without invasion. (TA). She is now having yearly cystoscopy. She has no bladder symptoms. She has had no hematuria since last seen one year ago. She feels well. She is enjoying senior living and is looking forward to [place] soon. She does have increased urinary urgency especially if she waits. On exam: Well looking. Abd: soft, non tender, no masses. : ext. Genitalia normal. Cysto: negative - see note Imp: pt without recurrence of bladder tumor - doing well. Plan: repeat cytology and repeat cysto in 1 yr, sooner if she has hematuria. Advised to do timed voiding. documented in this encounter Procedure Notes Maliha Schultz MD - 03/07/2013 8:14 AM ESTAssociated Order(s): CYSTOSCOPY Pre-Procedure Diagnose(s): Bladder cancer Post-Procedure Diagnose(s): Bladder cancer Procedure: Flexible cystoscopy. Surgeon: Marion Pre-Operative Diagnosis: History of hematuria Post-Operative Diagnosis: History of hematuria. Complications: None. Procedure: Urinalysis revealed no evidence [...] flexible telescope including retroversion. Anterior urethroscopy was normal.The prostatic fossa was normal. The ureteral orifices were in [...] Priority Date/Time Associated Comments Diagnosis CYSTOSCOPY Routine 03/07/2013 8:15 AM Bladder cancer Results for this EST procedure are i n the results section. NON-WAITER/WAITRESS BAR FINAL REPORT Routine 03/06/2013 2:15 PM R esults for this EST procedure are i n the results section. CYTOPATHOLOGY Routine 03/06/2013 2:15 PM Bladder cancer Result s for this NON-GYNECOLOGICAL EST procedure are in the results section. documented in this encounter Results Cystoscopy (03/07/2013 8:15 AM EST) Narrative Maliha Schultz MD - 03/07/2013 8:15 AM EST Maliha Schultz MD ? 03/07/2013 ??8:15 AM Procedure: Flexible cystoscopy. Surgeon: Marion Pre-Operative Diagnosis: ??History of he maturia Post-Operative Diagnosis: History of hem aturia. Complications: None. Procedure: Urinalysis revealed no evidence [...] flexible telescope including retroversion. Anterior urethroscopy was normal.The pro static fossa was normal. The ureteral orifices were in normal pos ition and effluxed clear urine. The bladder was normal. There were no bl adder tumors, ??mucosal abnormalities or bladder stones. The cystoscope was removed. The patient tolerated the procedure without difficulty. There were no complications. The patient ??was given 1 cipro prior to the procedure. Procedure Note Maliha Schultz MD - 03/07/2013 8:14 AM EST Procedure: Flexible cystoscopy. Surgeon: Marion Pre-Operative Diagnosis: History of tatiana turia Post-Operative Diagnosis: History of hem aturia. Complications: None. Procedure: Urinalysis revealed no evidence [...] flexible telescope including retroversion. Anterior urethroscopy was normal.The pro static fossa was normal. The ureteral orifices were in normal pos ition and effluxed clear urine. The bladder was normal. There were no bl adder tumors, mucosal abnormalities or bladder stones. The cystoscope was removed. The patient tolerated the procedure without difficulty. There were no complications. The patient was given 1 cipro prior to t he procedure. Maliha Schultz MD PROCEDURE ORDERABLES Non-Toy Painter Final Report (03/06/2013 2:15 PM EST) Component Value Ref Test Analysis Performed At [facility] Range Method Time Signature Non-Toy Painter Final CERNER Report ? [facility] ? Provider: ?? MALIHA SCHULTZ ??Pt. Name: ?? DIALLO CE, JULISSA R ?GREG ? Acc #: ?[id number] ?Pt. MRN: ?[id number] ? Col Date: ?? 03/06/20 13 ?/Sex: ?1945,(67 years),Female ? Rec Date: ?? 03/06/2013 ?LOC: ?5B ? CYTOPATHOLOGY: ??NGYN ? ---Adequacy--- ? Specimen submitted is satisfactory. ? ---Cytopathologic Diagnosis--- ? Negative for Malignancy ? 03/07/13 ?Screened by: ? REP ? Rescreened by: ?? SHO ? 03/08/13 ?Verified by: ? Daly VALENCIA, Matt Paris ?Pathol ogist ? (Electronic Signature) ? ---Comment--- ? Urine, Voided: ? Urothelial cells, squ amous cells, white blood cells, red blood cells, and ? bacteria present. ? ---Clinical Information--- ? Specimen Source: ?Urine, Voided ? Pertinent Clinical Data and Significant Therapy: ?Hx of bladder cancer ? Clinical Impression: ?Hx of bladder cancer ? Pertinent Radiologic Findings: ?(not provided) ? Gross Description: ?Received in 50% ETOH, approximately 70 ml. total volume of clear, yellow ? fluid. ?Total Preparation: Liquid Based Prep 1. Specimen (Source) Anatomical Collection Method Collection Time Re ceived Time Location / / Volume Laterality 03/06/2013 2:15 PM EST Maliha Schultz MD PATHOLOGY/CYTOLOGY ORDERABLE S Performing Organization Address City/[facility]/ZIP Code Phon e Number [address] [employer] [facility] CLINICAudio NetworkST. [facility] Cytopathology Non-Gynecological (03/06/2013 2:15 PM EST) Specimen Anatomical Collection Method Collection Time Receive d Time (Source) Location / / Volume Laterality AP Specimen 03/06/2013 2:15 PM 3 2:16 EST PM EST Narrative [facility] - 03/06/2013 2:[address] Specimen requisition ordered. ??Separate Pathology report to follow Maliha Schultz MD PATHOLOGY/CYTOLOGY ORDERABLE S Performing Organization Address City/[facility]/ZIP Code Phon e Number [address] [facility] documented in this encounter Visit Diagnoses Diagnosis Bladder cancer - Primary Malignant neoplasm of bladder, part unsp ecified documented in this encounter Care Teams Wellness Coordinator Relationship Specialty Start Date End Date Mellissa Garnett MD PCP - General 03/09/[address] [place] [address] documented as of this encounter
--- OUTSIDE RECORDS SUMMARY | 2021-12-28 14:59 | XMS_ITS | Encounter Summary ---
:1945 Author Organization [facility] [place] [address] Care Team Providers Name Role Phone Mellissa Garnett MD Primary Care Provider Reason for Visit Reason Comments Follow-up Encounter Details Date Type Department Care Team Description 03/06/2012 Procedure visit Urology at [facility] Maliha Schultz Personal history of malignan t neoplasm of bladder (Primary Dx); [facility] MD Greg Lumbar [place] [address] UROLOGY DEPT. [phone] [place], [place] [address] Social History Tobacco Use Types [...] Sign Reading Time Taken Comments Blood Pressure 140/76 03/06/2012 9:23 AM EST Pulse 65 03/06/2012 9:23 AM EST Temperature - - Respiratory Rate - - Oxygen Saturation - - Inhaled Oxygen Concentration - - Weight 77.1 kg (170 lb) 03/06/2012 9:10 AM EST Height 160 cm (5' 3) 03/06/2012 9:10 AM EST Body Mass Index 30.11 03/06/2012 9:10 AM EST documented in this encounter Patient Instructions Patient InstructionsMartha Mane LPN - 03/06/2012 9:23 AM EST Instructions following Cystoscopy Activity: As [...] to void please call our office at [phone] before 5PM or [phone] after hours. Please call if: * you have copious blood in your urine * fevers greater than 101.3 F * you are unable to void The number for questions is [phone] before 5 PM weekdays and [phone] after 5 PM and weekends. Follow-up: In 1 year for a cystoscopy. documented in this encounter Progress Notes Maliha Schultz MD - 03/26/2012 3:26 PM EST This 66 year old woman presents for cystoscopy because of a history of bladder tumors. Her first andlast tumor was in May 1994 when she had a Gr II/IV tumor without invasion. (TA). She is now having yearly cystoscopy. She has no bladder symptoms. She has had no hematuria since last seen one year ago. She feels well. On exam: Well looking. Abd: soft, non tender, no masses. : ext. Genitalia normal. Cysto: negative - see note Imp: pt without recurrence of bladder tumor - doing well. Plan: repeat cytology and repeat cysto in 1 yr, sooner if she has hematuria. documented in this encounter Procedure Notes Maliha Schultz MD - 03/26/2012 3:32 PM ESTAssociated Order(s): CYSTOSCOPY Pre-Procedure Diagnose(s): Personal history of malignant neoplasm of bladder Post-Procedure Diagnose(s): Personal history of malignant neoplasm Procedure: Flexible cystoscopy. Surgeon: Marion Pre-Operative Diagnosis: [...] Priority Date/Time Associated Comments Diagnosis CYSTOSCOPY Routine 03/26/2012 3:35 PM Personal history of Re sults for this EST malignant neoplasm procedure are in of bladder the results section. NON-WINDOW AIR CONDITIONER INSTALLER FINAL REPORT Routine 03/06/2012 11:57 Res ults for this AM EST procedure are i n the results section. CYTOPATHOLOGY Routine 03/06/2012 9:05 AM Personal history of R esults for this NON-GYNECOLOGICAL EST malignant neoplasm proc edure are in of bladder the results section. documented in this encounter Results Cystoscopy (03/26/2012 3:35 PM EST) Narrative Maliha Schultz MD - 03/26/2012 3:35 PM EST Maliha Schultz MD ? 03/26/2012 ??3:35 PM Procedure: Flexible cystoscopy. Surgeon: Marion Pre-Operative [...] procedure. Procedure Note Maliha Schultz MD - 03/26/2012 3:32 PM EST Procedure: Flexible cystoscopy. Surgeon: Marion Pre-Operative [...] he procedure. Maliha Schultz MD PROCEDURE ORDERABLES NON-WINDOW AIR CONDITIONER INSTALLER FINAL REPORT (03/06/2012 11:57 AM EST) Component Value Ref Test Analysis Performed At [facility] Method Time Signature Non-Road Roller Operator Hot Mix Final CERNER Report ? [facility] ? Provider: ?? MALIHA SCHULTZ ??Pt. Name: ?? DIALLO CE, JULISSA R ?GREG ? Acc #: ?[id number] ?Pt. MRN: ?[id number] ? Col Date: ?? 03/06/20 12 ?/Sex: ?1945,(66 years),Female ? Rec Date: ?? 03/06/2012 ?LOC: ?5B ? CYTOPATHOLOGY: ??NGYN ? ---Adequacy--- ? Specimen submitted is satisfactory. ? ---Cytopathologic Diagnosis--- ? Negative for Malignancy ? 03/09/12 ?Screened by: ? LMY ? Rescreened by: ?? EJG,EJG ? 03/11/12 ?Verified by: ? Xiomara VALENCIA, Elver ruvalcaba J ?Cytopa thologist ? (Electronic Signature) ? ---Comment--- ? Urine, Voided: Urothelial and squamous cells present. ? ---Clinical Information--- ? Specimen Source: ?Urine, Voided ? Pertinent Clinical Data and Significant Therapy: ?H/o bladder cancer ? Clinical Impression: ?H/o bladder cancer ? Pertinent Radiologic Findings: ?(none provided) ? Gross Description: ?Received in 50% ETOH, approximately 50 ml. total volume of clear, yellow ? fluid. ?Total Preparation: Liquid Based Prep 1. Specimen (Source) Anatomical Collection Method Collection Time Re ceived Time Location / / Volume Laterality 03/06/2012 11:57 AM EST Maliha Schultz MD PATHOLOGY/CYTOLOGY ORDERABLE S Performing Organization Address City/State/Z[place] [address] [facility] Cytopathology Non-Gynecological (03/06/2012 9:05 AM EST) Specimen Anatomical Collection Method Collection Time Receive d Time (Source) Location / / Volume Laterality AP Specimen 03/06/2012 9:05 AM 2 9:05 EST AM EST Narrative [facility] - 03/06/2012 9:[address] Specimen requisition ordered. ??Separate Pathology report to follow Maliha Schultz MD PATHOLOGY/CYTOLOGY ORDERABLE S Performing Organization Address City/[facility]/ZIP [place] [address] [employer] documented in this encounter Visit Diagnoses Diagnosis Personal history of malignant neoplasm o f bladder - Primary Lumbar radicular pain Thoracic or lumbosacral neuritis or radi culitis, unspecified documented in this encounter Care Teams Manager Financial Relationship Specialty Start Date End Date Mellissa Garnett MD PCP - General 03/09/[address] [place] [address] documented as of this encounter
--- OUTSIDE RECORDS SUMMARY | 2021-12-28 14:59 | XMS_ITS | Encounter Summary ---
:1945 Author Organization [facility] [address] Care Team Providers Name Role Phone Mellissa Garnett MD Primary Care Provider Reason for Visit Reason Comments Bladder Cancer Encounter Details Date Type Department Care Team Description 01/25/2011 Procedure visit Urology at [facility] Maliha Schultz Bladder cancer [facility] MD Greg (Primary Dx) [place] [address] UROLOGY DEPT. [phone] [place], [place] [address] Social History Tobacco Use Types [...] Sign Reading Time Taken Comments Blood Pressure 119/70 01/25/2011 3:01 PM EDT Pulse 94 01/25/2011 3:01 PM EDT Temperature - - Respiratory Rate - - Oxygen Saturation - - Inhaled Oxygen Concentration - - Weight 76.7 kg (169 lb) 01/25/2011 3:01 PM EDT Height 160 cm (5' 3) 01/25/2011 3:01 PM EDT Body Mass Index 29.94 01/25/2011 3:01 PM EDT documented in this encounter Patient Instructions Patient InstructionsIleana Collins, PÉREZ - 01/25/2011 4:05 PM EDT . . Instructions following Cystoscopy Activity: As tolerated by [...] to void please call our office at [phone] before 5PM or [phone] after hours. Please call if: * you have copious blood in your urine * fevers greater than 101.3 F * you are unable to void The number for questions is [phone] before 5 PM weekdays and [phone] after 5 PM and weekends. Follow-up: We should repeat your cystoscopy 1 year documented in this encounter Plan of Treatment Scheduled Orders Name Type Priority Associated Diagnoses Order S chedule Cystoscopy PROCEDURE Routine Bladder cancer Ordered: 01/15 documented as of this encounter Procedures Procedure Name Priority Date/Time Associated Comments Diagnosis NON-TABLE GAMES DEALER FINAL REPORT Routine 01/25/2011 5:14 PM R esults for this EDT procedure are i n the results section. CYTOPATHOLOGY Routine 01/25/2011 4:04 PM Bladder cancer Result s for this NON-GYNECOLOGICAL EDT procedure are in the results section. documented in this encounter Results NON-TABLE GAMES DEALER FINAL REPORT (01/25/2011 5:14 PM EDT) Component Value Ref Test Analysis Performed At [facility] Range Method Time Signature Non-Economic Consultant Final CERNER Report ? [facility] ? Provider: ?? MALIHA SCHULTZ ??Pt. Name: ?? DIALLO ENCINAS, JULISSA Darden ?GREG ? Acc #: ?[id number] ?Pt. MRN: ?[id number] ? Col Date: ?? 01/26/20 11 ?/Sex: ?1945,(65 years),Female ? Rec Date: ?? 01/25/2011 ?LOC: ?5B ? CYTOPATHOLOGY: ??NGYN ? ---Adequacy--- ? Specimen submitted is satisfactory. ? ---Cytopathologic Diagnosis--- ? Negative for Malignancy ? 01/26/11 ?Screened by: ? LMY ? Rescreened by: ?? VEJ,SHO ? 01/27/11 ?Verified by: ? Daly VALENCIA, Matt Paris ?Pathol ogist ? (Electronic Signature) ? ---Comment--- ? Urine, Voided: ? Urothelial cells, squ amous cells, crystals, and rare red blood cells are ? present. ? ---Clinical Information--- ? Specimen Source: ?Urine, Voided ? Pertinent Clinical Data and Significant Therapy: ?Bladder cancer ? Clinical Impression: ?Bladder cancer ? Pertinent Radiologic Findings: ?(not provided) ? Gross Description: ?Received in 50% ETOH, approximately 80 ml. total volume of clear, yellow ? fluid. ?Total Preparation: Liquid Based Prep 1. Specimen (Source) Anatomical Collection Method Collection Time Re ceived Time Location / / Volume Laterality 01/25/2011 5:14 PM EDT Maliha Schultz MD PATHOLOGY/CYTOLOGY ORDERABLE S Performing Organization Address City/State/ZIP Code Phon e Number [address] [facility] Cytopathology Non-Gynecological (01/25/2011 4:04 PM EDT) Specimen Anatomical Collection Method Collection Time Receive d Time (Source) Location / / Volume Laterality AP Specimen 01/25/2011 4:04 PM 1 4:04 EDT PM EDT Narrative [facility] - 01/25/2011 4:04 PM E DT Specimen requisition ordered. ??Separate Pathology report to follow Maliha Schultz MD PATHOLOGY/CYTOLOGY ORDERABLE S Performing Organization Address City/[facility]/ZIP Code Phon e Number [address] [facility] documented in this encounter Visit Diagnoses Diagnosis Bladder cancer - Primary Malignant neoplasm of bladder, part unsp ecified documented in this encounter Care Teams Certified Diabetes Educator Relationship Specialty Start Date End Date Mellissa Garnett MD PCP - General 03/09/10 [address] [place] [address] documented as of this encounter
--- OUTSIDE RECORDS SUMMARY | 2021-12-28 14:59 | XMS_ITS | Encounter Summary ---
:1945 Author Organization [facility] [place] [address] Care Team Providers Name Role Phone Mellissa Garnett MD Primary Care Provider Encounter Details Date Type Department Care Team Description 05/19/2014 Procedure visit Urology at [facility] Maliha Schultz Malignant neoplasm [facility] MD Greg of urinary bladder, Drive [facility] unspecified site [place], [place] (Primary Dx) [address] UROLOGY DEPT. [phone] [place], [place] [address] Social History Tobacco Use Types [...] Sign Reading Time Taken Comments Blood Pressure 153/90 05/19/2014 9:51 AM EST Pulse 85 05/19/2014 9:51 AM EST Temperature - - Respiratory Rate 16 05/19/2014 9:51 AM EST Oxygen Saturation - - Inhaled Oxygen Concentration - - Weight 72.6 kg (160 lb) 05/19/2014 9:51 AM EST Height 157.5 cm (5' 2) 05/19/2014 9:51 AM EST Body Mass Index 29.26 05/19/2014 9:51 AM EST documented in this encounter Patient Instructions Patient InstructionsCindy Naranjo LPN - 05/19/2014 9:51 AM EST Instructions following Cystoscopy Activity: As [...] to void please call our office at [phone] before 5PM or [phone] after hours. Please call if: * you have copious blood in your urine * fevers greater than 101.3 F * you are unable to void The number for questions is [phone] before 5 PM weekdays and [phone] after 5 PM and weekends. Follow-up: In 1 year documented in this encounter Progress Notes Maliha Schultz MD - 05/19/2014 10:34 AM EST This 68 year old woman presents for cystoscopy because [...] encounter Procedure Notes Maliha Schultz MD - 05/19/2014 10:35 AM ESTAssociated Order(s): CYSTOSCOPY Pre-Procedure Diagnose(s): Malignant neoplasm of [...] Priority Date/Time Associated Comments Diagnosis CYSTOSCOPY Routine 05/19/2014 10:36 Malignant neoplasm Resul ts for this AM EST of urinary bladder, procedur e are in unspecified site the results section. NON-POCKET GRINDER OPERATOR FINAL REPORT Routine 05/19/2014 9:51 AM R esults for this EST procedure are i n the results section. CYTOPATHOLOGY Routine 05/19/2014 9:51 AM Malignant neoplasm Re sults for this NON-GYNECOLOGICAL EST of urinary bladder, pro cedure are in unspecified site the results section. documented in this encounter Results Cystoscopy - Today (05/19/2014 10:36 AM EST) Narrative Maliha Schultz MD - 05/19/2014 10:36 AM EST Maliha Schultz MD ? 05/19/2014 10:36 AM Procedure: Flexible cystoscopy. Surgeon: Marion Pre-Operative [...] the procedure. Maliha Schultz MD PROCEDURE ORDERABLES Non-Senior Net Application Developer Final Report (05/19/2014 9:51 AM EST) Component Value Ref Test Analysis Performed At [facility] Range Method Time Signature Non-Senior Net Application Developer Final CERNER Report ? [facility] ? Provider: ?? MALIHA SCHULTZ ??Pt. Name: ?? DIALLO CE, JULISSA R ?GREG ? Acc #: ?[id number] ?Pt. MRN: ?[id number] ? Col Date: ?? 05/19/2014 ?/Sex: ?1945,(68 years),Female ? Rec Date: ?? 05/19/2014 ?LOC: ?5B ? CYTOPATHOLOGY: ??NGYN ? ---Cytopathologic Diagnosis--- ? Negative for Malignancy ? 05/20/14 ?Screened by: ? LMY ? Rescreened by: ?? SKG,SHO ? 05/20/14 ?Verified by: ? Marotti MD, Matt Paris ?Pathol ogist ? (Electronic Signature) ? ---Comment--- ? Urine, Voided: ??Urot helial cells, squamous cells, and red blood cells are ? present. ? ---Clinical Information--- ? Specimen Source: ?Urine, Voided ? Pertinent Clinical Data and Significant Therapy: ?H/O bladder cancer ? Clinical Impression: ?H/O bladder cancer ? Pertinent Radiologic Findings: ?(not provided) ? Gross Description: ?Received in 50% ETOH, approximately 90 ml. total volume of clear, yellow ? fluid. ?Total Preparation: Liquid Based Prep 1. Specimen (Source) Anatomical Collection Method Collection Time Re ceived Time Location / / Volume Laterality 05/19/2014 9:51 AM EST Maliha Schultz MD PATHOLOGY/CYTOLOGY ORDERABLE S Performing Organization Address [facility] Code Phon e Number [address] [facility] Cytopathology Non-Gynecological (05/19/2014 9:51 AM EST) Specimen Anatomical Collection Method Collection Time Receive d Time (Source) Location / / Volume Laterality AP Specimen 05/19/2014 9:51 AM 201 5 9:51 EST AM EST Narrative [facility] - 05/19/2014 9:[address] Specimen requisition ordered. ??Separate Pathology report to follow Maliha Schultz MD PATHOLOGY/CYTOLOGY ORDERABLE S Performing Organization Address [facility] Code Phon e Number [address] [facility] documented in this encounter Visit Diagnoses Diagnosis Malignant neoplasm of urinary bladder, u nspecified site - Primary documented in this encounter Care Teams Conservation Assistant Relationship Specialty Start Date End Date Mellissa Garnett MD PCP - General 03/09/[address] [place] [address] documented as of this encounter
--- OUTSIDE RECORDS SUMMARY | 2021-12-28 15:00 | XMS_ITS | Clinical Summary ---
:1945 Author Organization [facility] Address [address] [place] [address] Care Team Providers Name Role Phone Mellissa Garnett MD Primary Care Provider Encounters Date Type Specialty Care Team Description 10/26/2021 Lab Requisition Clinical Laboratory [facility] for other M, DO general examina tion from Last 3 Months Social History Tobacco Use Types Packs/Day Years Used Date Never Assessed Sex Assigned at Date Recorded Not on file Plan of Treatment Health Maintenance Due Date Last Done Comments Hepatitis C Screen 1945 COVID-19 Vaccine (#1) 01/03/1946 Fall Risk Screening 07/02/2008 Procedures Procedure Name Priority Date/Time Associated Diagnosis Comme nts SURGICAL PATHOLOGY Today 10/26/2021 10:55 Encounter for othe r Results for this EDT general examination procedur e are in the results section. from Last 3 Months Results SURGICAL PATHOLOGY (10/26/2021 10:55 EDT) Note to Patient The following [facility] pathology results CENTER have been interpreted LABORATORY by your pathologist SERVICES and may be available to you before your health provider has had the opportunity to review them. Please allow time for your provider to receive these results and explore management options, if applicable. Final Diagnosis A. COLON, 30 CM, BIOPSY: [facility] - Sessile serrated adenoma. CENTER LABORATORY B. COLON, CECUM, PREVIOUS POLYP SITE, BIOPSY: SERVICES - Fragments of regenerative mucosa. - No residual adenoma identified. - Deeper levels examined. C. COLON, 80 CM, BIOPSY: - Polypoid colonic mucosa. - Deeper levels examined. Attestation By the signature [facility] Electronica lly below, the attending CENTER signed by Jose, physician certifies LABORATORY Ananth Fagan MD on that they have 1) SERVICES 10/28/2021 at 1225 personally conducted a gross and/or microscopic examination of the described specimen(s), and/or personally interpreted the results of laboratory testing of the described specimen(s), and 2) personally rendered or confirmed the above diagnosis. Clinical History H/O polyps [facility] LABORAT[facility] SERVICES Gross Description A. [facility] Received in formalin ignacio d with proper patient identification (initials L, N) and polyp @ 30 cm are 4 hopkins tissues (0.4 x 0.3 x 0.1 cm to 0.2 x 0.1 by less than 0.1 cm). Entirely submitted in A1. CENTER LABORATORY B. SERVICES Received in formalin ignacio d with proper patient identification (initials L, N) and 2. Bx of previous polyp site- cecum are 7 hopkins-brown tissues (0.6 x 0.2 x 0.1 cm to 0.1 x 0.1 x 0.1 cm). Entirely s ubmitted in B1-B2. Please note the small er tissues may not survive processing. C. Received in formalin ignacio d with proper patient identification (initials L, N) and 3. Polyp @ 80 cm are two hopkins-yellow tissues (0.4 x 0.3 x 0.1 cm and 0.2 x 0.1 by less than 0.1 cm). Entirely submi tted in C1. Please note the smaller tissue may not shahid vive processing. CHRISTIANO LOPES 10/27/2021 7:57 Performing Lab [facility] LAB [facility] SERVICES Scanned Images [facility] SERVICES Specimen Tissue - Colon, Polyp Tissue specimen (specimen) - Cecum struc ture (body structure) Tissue specimen (specimen) - Colon, Poly p Performing Organization Address City/State/ZIP Code Phon e Number [facility] [address] [place] [address] SERVICES from Last 3 Months Insurance Payer Benefit Plan / Subscriber ID Effective Dates Phone Addre ss Type Group MEDICARE MEDICARE A/B [id number] 2008-Presen [id number] [place] [address] [employer] LIFE & [id number] Effective for [address] [place] [address] Care Teams Scientific Software Engineer Relationship Specialty Start Date End Date Mellissa Garnett MD PCP - General 09/05/[address] [place] [phone]
--- OUTSIDE RECORDS SUMMARY | 2021-12-28 15:00 | XMS_ITS | Encounter Summary ---
:1945 Author Organization [facility] Address [address] [place] [address] Care Team Providers Name Role Phone Mellissa Garnett MD Primary Care Provider Encounter Details Date Type Department Care Team Description 10/26/2021 Lab Requisition [facility] Nury Arenas for other Pathology & M, DO general examination Laboratory Medicine - [address] [facility] [address] [place] [phone] Social History Tobacco Use Types Packs/Day Years [...] procedur e are in the results section. documented in this encounter Results SURGICAL PATHOLOGY (10/26/2021 10:55 EDT) Note to Patient The following [facility] pathology results CENTER have been interpreted LABORATORY by your pathologist SERVICES and may be available to you before your health provider has had the opportunity to review them. Please allow time for your provider to receive these results and explore management options, if applicable. Final Diagnosis A. COLON, 30 CM, BIOPSY: [facility] - Sessile serrated adenoma. CENTER LABORATORY B. COLON, CECUM, PREVIOUS POLYP SITE, BIOPSY: SERVICES - Fragments of regenerative mucosa. - No residual adenoma identified. - Deeper levels examined. C. COLON, 80 CM, BIOPSY: - Polypoid colonic mucosa. - Deeper levels examined. Attestation By the signature [facility] MED[facility] Electronica lly below, the attending CENTER signed by Jose, physician certifies LABORATORY Ananth Fagan MD on that they have 1) SERVICES 10/28/2021 at 1225 personally conducted a gross and/or microscopic examination of the described specimen(s), and/or personally interpreted the results of laboratory testing of the described specimen(s), and 2) personally rendered or confirmed the above diagnosis. Clinical History H/O polyps [facility]ORAT[facility] SERVICES Gross Description A. [facility] Received in formalin ignacio d with [...] processing. CHRISTIANO LOPES 10/27/2021 7:57 Performing Lab [facility] SERVICES Scanned Images [facility] SERVICES Specimen Tissue - Colon, Polyp Tissue specimen (specimen) - Cecum struc ture (body structure) Tissue specimen (specimen) - Colon, Poly p Performing Organization Address City/State/ZIP Code Phon e Number [facility] [address] [place] [address] SERVICES documented in this encounter Visit Diagnoses Diagnosis Encounter for other general examination documented in this encounter Care Teams Dietary Supervisor Relationship Specialty Start Date End Date Mellissa Garnett MD PCP - General 09/05/[address] [place] [address] [address] [place] [address] documented as of this encounter
--- OUTSIDE RECORDS SUMMARY | 2021-12-28 15:00 | XMS_ITS | Encounter Summary ---
:1945 Author Organization [facility] Address [address] [place] [address] Care Team Providers Name Role Phone Mellissa Garnett MD Primary Care Provider Encounter Details Date Type Department Care Team Description 11/02/2016 Results Only [facility] Mellissa Garnett MD [phone] [place] [address] (Wo rk) Social History Tobacco Use Types Packs/Day Years Used Date Never Assessed Sex Assigned at Date Recorded Not on file documented as of this encounter Plan of Treatment Not on filedocumented as of this encounter Procedures Procedure Name Priority Date/Time Associated Diagnosis Comme nts SURGICAL PATHOLOGY Routine 11/02/2016 11:11 Resul ts for this EDT procedure are i n the results section. documented in this encounter Results SURGICAL PATHOLOGY (11/02/2016 11:11 EDT) Pathology Report: SURGICAL PATHOLOGY REPORT [facility] Reports generated via electronic interface conta in original data; CENTER LABORATORY however they are lacking the format of the original re port. SERVICES Caution should be taken when reading/interpreting unfo rmatted reports. Name: ? JULISSA VELEZ ? Accession #: ? [id number] ? : ? 1945 (Age: [age]) ??F ? Collect Date: ? 11/02/2016 ? Location: ? [facility] ? Receive Date: ? 11/04/19 17 ? Provider: MARGARITA WEINSTEIN MD Copy to: MELLISSA GARNETT MD ? 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 - ??No atypia or malignancy seen. - ??See comment. ___ Comment: Sections are of bone, subjac ent medullary tissue and synovial tissue remarkable for degenerative changes of the articular surface. The articular surface is thin and remarkable for degenerating and reactive chondrocy sukumar within a thin eosinophilic matrix. Intertr abecular spaces immediately subjacent to the surface are remarkable for fibrosis and some spaces contain normal appearing bone marrow elements. Adjacent synovial tissue is remarkable for mild chronic inflammation, focal edema and areas of org anizing fibrosis. No malignancy is seen in sections examined. Document reviewed and electronically signed by: ESSIE AMBRIZ MD Report ??Date: 11/07/2016 19:17 By the signature above, the attending physician certif ies that he/she has personally conducted a gross and/or microscopic examin ation of the described specimens and rendered or confirmed the above diagnosi s. Specimen(s) Received: L femoral head Clinical History: DJD; no signs of inflammator y arthritis, degenerative arthritis, history of (+) antinuclear antibody Gross Description: ? Received in formalin labelled with proper patient identification (initials L, N) and femoral head is a femoral he ad (6.4 x 5.3 x 5.1 cm), with attached portion of femoral neck (1.2 cm in length x 2.5 cm in diameter). ??There is minimal attached soft tissue. ? The resection margin is hopkins and smooth with a central rectangular defect (2.2 x 1.2 x 1.2 cm). ??The articular surface is hopkins-w geovany and smooth with a focal area of eburnation. ??The periphery has minimal osteophyte formation. Sectioning reveals hopkins-pink to red with a pale yellow discoloration underlying the defect. ??The articular cartilage ranges from 0.1 cm to 0.2 cm in thickness. The area of eburnation is submitted in 1 and the focal area underlying the defect is submitted in 2 each for acid decalcification . MIRTA Holt ([facility]) 11/03/2016 4:18 PM End of Report Specimen Performing Organization Address City/State/ZIP Code Phon e Number [facility] [address] [place] [address] SERVICES documented in this encounter Visit Diagnoses Not on filedocumented in this encounter Care Teams Certified Juvenile Probation Officer Relationship Specialty Start Date End Date Mellissa Garnett MD PCP - General 09/05/[address] [place] [address] [address] [place] [address] documented as of this encounter
--- OUTSIDE RECORDS SUMMARY | 2021-12-28 15:00 | XMS_ITS | Encounter Summary ---
:1945 Author Organization [facility] Address [address] [place] [address] Care Team Providers Name Role Phone Mellissa Garnett MD Primary Care Provider Encounter Details Date Type Department Care Team Description 05/21/2012 Results Only [facility] Christianne Garnett MD Laboratory Services - [address] [place] [address] [address] [place] [phone] (Wo rk) Social History Tobacco Use Types Packs/Day Years Used Date Never Assessed Sex Assigned at Date Recorded Not on file documented as of this encounter Plan of Treatment Not on filedocumented as of this encounter Procedures Procedure Name Priority Date/Time Associated Diagnosis Comme nts CYTOPATHOLOGY Routine 05/21/2012 0:00 EST Results for this procedure are i n the results section . documented in this encounter Results CYTOPATHOLOGY (05/21/2012 0:00 EST) Pathology Report: CYTOPATHOLOGY REPORT [facility] Reports generated via electronic interface contain candelario ginal data; however they are lacking the format of the original re port. Caution should be taken when reading/interpreting unfo rmatted reports. Name: ? JULISSA VELEZ ? Accession #: ? [id number] : ? 1945 (Age: 66) ??F ?Collect Date: ? 0207/2012 Location: ? [facility] ? Receive Date : ? 05/22/2012 Provider: ? MELLISSA GARNETT MD Copy to: ? CYTOLOGIC DIAGNOSIS: ? Urine, voided, cytologic evaluation: 1. ?No malignant cells identified. 2. ? Abundant reactive urothelial cells present. Document reviewed and electronically signed by: ? LISSET RO MD PHD Report Date: ??05/22/2012 16:11 By the signature above, the attending physician certif ies that he/she has personally conducted a gross and/or microscopic examin ation of the described specimens and rendered or confirmed the above diagnosi s. Specimen Type: ? Urine, Voided Clinical History: ? History of bladder cancer. ? Gross Description: ? One vial of Cytolyt was rece ived and processed by selective cellular enhancement technique. ? End of Report Specimen Performing Organization Address City/State/ZIP Code Phon e Number [facility] [address] [place] [address] SERVICES [facility] [address] [place] [address] documented in this encounter Visit Diagnoses Not on filedocumented in this encounter Care Teams Note Taker Relationship Specialty Start Date End Date Mellissa Garentt MD PCP - General 09/05/[address] [place] [address] documented as of this encounter
--- OUTSIDE RECORDS SUMMARY | 2021-12-28 15:00 | XMS_ITS | Encounter Summary ---
:1945 Author Organization [facility] Address [address] [place] [address] Care Team Providers Name Role Phone Mellissa Garnett MD Primary Care Provider Encounter Details Date Type Department Care Team Description 02/14/2019 Results Only [facility] Carlos Pelletier, [address] [place] [address] (Wo rk) Social History Tobacco Use Types Packs/Day Years Used Date Never Assessed Sex Assigned at Date Recorded Not on file documented as of this encounter Plan of Treatment Not on filedocumented as of this encounter Procedures Procedure Name Priority Date/Time Associated Diagnosis Comme [facility] SURGICAL PATHOLOGY Routine 02/14/2019 15:47 Resul ts for this EDT procedure are i n the results section. documented in this encounter Results SURGICAL PATHOLOGY (02/14/2019 15:47 EDT) Pathology Report: SURGICAL PATHOLOGY REPORT [facility] Reports generated via electronic interface contain candelario ginal data; LABORATORY however they are lacking the format of the original re port. SERVICES Caution should be taken when reading/interpreting unfo rmatted reports. Name: ? JULISSA VELEZ ? Accession #: ? [id number] ? : ? 1945 (Age: [age]) ??F ? Collect Date: ? 02/14/2019 ? Location: ? [facility] ? Receive Date: ? 9 ? Provider: CARLOS PELLETIER DO Copy to: MELLISSA GARNETT MD ? Final Pathologic Diagnosis: SKIN OF NASAL DORSUM, SHAVE BIOPSY: - Basal cell carcinoma, nodular type. - Margins negative for basal cell carcinoma. - Epidermal reparative change and dermal scar, consist ent with biopsy site. - Chronic solar damage with incidental actinic keratos es. Microscopic Description: Irregularly shaped islands o f atypical basal cells infiltrate the dermis. ??The basal cells have scant cytoplasm and round dark nuclei. ??Mitotic figures and apoptotic bodies are evident . ??The nuclei at the periphery of the islands have a palisaded arrangement. ??The islands are associated with a fibromyxoid stroma and there is cleft formation bet ween some of the islands and stroma. ??(Dr. Vaughn)/jds Document reviewed and electronically signed by: VIOLETTA VAUGHN MD Report ??Date: 02/18/2019 13:38 By the signature above, the attending physician certif ies that he/she has personally conducted a gross and/or microscopic examin ation of the described specimens and rendered or confirmed the above diagnosi s. Specimen(s) Received: Nasal dorsum, 12 o'clock linda nk, 3 o'clock white, 6 o'clock blue, 9 o'clock black Clinical History: Basal cell Intraoperative Interpretation: NASAL DORSUM, FROZEN SECTION: - Biopsy site changes, margins uninvolved by carcinoma . - FSA1: ??Biopsy site changes, margin uninvolved by ca rcinoma. - FSA2: ??Biopsy site changes, margin uninvolved by ca rcinoma. - Diagnosis discussed with Raina Pelletier by Dr. Royce Mena on 02/14/19. Dr. Royce Mena 02/14/19 Gross Description: ? Received fresh labell ed with proper patient identification (initials L, N) and nasal dorsum frozen section is a 2 .2 x 1.6 x 0.3 cm oriented, elliptical excision of pink-hopkins skin with a white s uture at 3 o'clock, a blue suture at 6 o'clock and a black suture at 9 o'clock. The specimen is inked as follows: 12-3-6 is red, 6-9-12 is green and deep is black. The specimen is serially sectioned from 12 o'clock to 6 o'clock into 6 levels and entirely submitted for frozen section analysis, wit h the interpretation as rendered above, as follows: FSA1: levels 1-3, with the 12 o'clock tip reverse en f rebecca; FSA2: levels 4-6, with the 6 o'clock tip reverse en face. ??The frozen s ection remainders are subsequently submitted as follows: BLOCK CASTRO 1- ??remainder of 12 o'clock tip 2- ??remainder of levels 2 and 3 3- ??remainder of levels 4 and 5 4- ??remainder of 6 o'clock tip MIRTA Dodd (ASCP) 02/15/2019 4:06 PM End of Report Specimen Performing Organization Address City/State/ZIP Code Phon e Number [facility] [address] [place] [address] SERVICES documented in this encounter Visit Diagnoses Not on filedocumented in this encounter Care Teams Hat Cone Inspector Relationship Specialty Start Date End Date Mellissa Garnett MD PCP - General 09/05/[address] [place] [phone] documented as of this encounter
--- OUTSIDE RECORDS SUMMARY | 2021-12-28 15:00 | XMS_ITS | Encounter Summary ---
:1945 Author Organization [facility] Address [address] [place] [address] Care Team Providers Name Role Phone Mellissa Garnett MD Primary Care Provider Encounter Details Date Type Department Care Team Description 10/22/2019 Lab Requisition [facility] Dontrell Lazcano of Pathology & Tank Fagan DO unspecified behavior Laboratory Medicine [address] [place] [address] madisyn [facility] 5 tissue, and skin [address] [place] [address] [place] [address] Social History Tobacco Use Types Packs/Day Years Used Date Never Assessed Sex Assigned at Date Recorded Not on file documented as of this encounter Plan of Treatment Not on filedocumented as of this encounter Procedures Procedure Name Priority Date/Time Associated Diagnosis Comme nts SURGICAL PATHOLOGY Today 10/21/2019 9:13 EDT Neoplasm of Re sults for this unspecified behavior procedu re are in of bone, soft the results tissue, and skin section. documented in this encounter Results SURGICAL PATHOLOGY (10/21/2019 9:13 EDT) Final Diagnosis A. SKIN OF PRE-AURICULAR REGION, LEFT, SHAVE BIO PSY: [facility] Electronically - Seborrheic keratosis. CENTER sign ed by [facility] LABORAT[facility] Rylan Le on SERVICES 10/23/2019 at 111 6 Attestation By the signature [facility] Electronica lly below, the attending CENTER signed by [facility]oderick physician certifies LABORATORY Olivia Caruso MD on that they have 1) SERVICES 10/23/2019 a t 1116 personally conducted a gross and/or microscopic examination of the described specimen(s), and/or personally interpreted the results of laboratory testing of the described specimen(s), and 2) personally rendered or confirmed the above diagnosis. Microscopic The stratum corneum [facility] Description is thickened by CENTER laminated LABORATORY orthohyperkeratosis. SERVICES The epidermis is hyperplastic with papillomatosis and acanthosis. There is formation of horn pseudocysts. The keratinocytes have a basaloid appearance with round regular nuclei and a moderate amount of cytoplasm. Clinical History Crusted skin lesion; [facility] history of basal cell [place] skin cancer; D49.2 LABORATORY SERVICES Gross Description A. Received in formalin labe lled with proper patient identification (initials L, N) and left preauricular is a hopkins-white skin shave biopsy measuring 0.7 x 0.7 x 0.2 cm. Approximately 85% of the skin s [facility] urface is covered by a raise d firm white papule. Inked, trisected and submitted entirely in A1. [place] [facility] Gina Hines 10/22/2019 19:09 SERVICES Scanned Images [facility] SERVICES Specimen Tissue - Skin (tissue) specimen (specime n) Performing Organization Address City/State/ZIP Code Phon e Number [facility] [address] [place] [address] SERVICES documented in this encounter Visit Diagnoses Diagnosis Neoplasm of unspecified behavior of bone , soft tissue, and skin documented in this encounter Care Teams Chairman And Ceo Relationship Specialty Start Date End Date Mellissa Garnett MD PCP - General 09/05/[address] [place] [address] [address] [place] [address] documented as of this encounter
--- OUTSIDE RECORDS SUMMARY | 2021-12-28 15:00 | XMS_ITS | Encounter Summary ---
:1945 Author Organization [facility] Address [address] [place] [address] Care Team Providers Name Role Phone Mellissa Garnett MD Primary Care Provider Encounter Details Date Type Department Care Team Description 01/14/2019 Hospital Encounter [facility] - S Unknown, Pro Christian childress MD 1 [facility] [phone] [place] [address] (Work) [phone] Social History Tobacco Use Types Packs/Day Years Used Date Never Assessed Sex Assigned at Date Recorded Not on file documented as of this encounter Discharge Disposition Disposition Code Departure Means Destination Home or Self [facility] documented in this encounter Plan of Treatment Not on filedocumented as of this encounter Visit Diagnoses Not on filedocumented in this encounter Care Teams Real Estate Administrator Relationship Specialty Start Date End Date Mellissa Garnett MD PCP - General 09/05/[address] [place] [phone] documented as of this encounter
--- OUTSIDE RECORDS SUMMARY | 2021-12-28 15:00 | XMS_ITS | Encounter Summary ---
:1945 Author Organization [facility] Address [address] [place] [address] Care Team Providers Name Role Phone Unknown, Provider Primary Care Provider Encounter Details Date Type Department Care Team Description 04/27/2000 Results Only [facility] - Moriah Ivan MD conversion [address] [place] [address] [place], [place] [id number] [phone] Social History Tobacco Use Types Packs/Day Years Used Date Never Assessed Sex Assigned at Date Recorded Not on file documented as of this encounter Plan of Treatment Not on filedocumented as of this encounter Procedures Procedure Name Priority Date/Time Associated Comments Diagnosis SPEP WITH Routine 04/27/2000 21:53 Results for this IMMUNOTYPING EST procedure are i n the results section. T4 FREE Routine 04/27/2000 21:53 Results for this EST procedure are i n the results section. FOLATE Routine 04/27/2000 21:53 Results for this EST procedure are i n the results section. VITAMIN B12 Routine 04/27/2000 21:53 Results for this EST procedure are i n the results section. documented in this encounter Results IMMUNOFIXATION/SPEP (04/27/2000 21:53 EST) Total Protein 7.5 6.0 - 8.5 [facility] g/dl LAB Albumin, SPEP 49.9 49.0 - 61.0 [facility] % LAB Alpha 1, SPEP 3.9 2.4 - 4.9 % [facility] Alpha 2, SPEP 14.0 10.0 - 19.0 [facility] % LAB Beta, SPEP 13.9 9.0 - 14.0 % [facility] Gamma, SPEP 18.3 11.0 - 21.0 [facility] % LAB Comments, SPEP Copy of [facility] electrophoretic scan LAB to follow Immunofixation,se Negative for [facility] rum monoclonal LAB immunoglobulins. Specimen Performing Organization Address City/[facility]/ZIP Code Phon e Number [facility] [address] [place] [address] SERVICES [facility] [address] [place] [address] T4 FREE (04/27/2000 21:53 EST) Pathologist Sig nature Free T4 1.0 0.8 - 1.8 ng/dl [facility] Specimen Performing Organization Address City/[facility]/ZIP Code Phon e Number [facility] [address] [place] [address] SERVICES [facility] [address] [place] [address] (ABNORMAL) FOLATE (04/27/2000 21:53 EST) Pathologist Sig nature Folate >20.0 (H) 2.8 - 18.0 ng/ml [facility] Specimen Performing Organization Address [facility]/ZIP Code Phon e Number [facility] [address] [place] [address] SERVICES [facility] [address] [place] [address] VITAMIN B12 (04/27/2000 21:53 EST) Pathologist Sig nature Vitamin B-12 461 250 - 1100 pg/ml [facility] Specimen Performing Organization Address [facility]/ZIP Code Phon e Number [facility] [address] [place] [address] SERVICES [facility] [address] [place] [address] documented in this encounter Visit Diagnoses Not on filedocumented in this encounter Care Teams [employer] Portal Consultant Relationship Specialty Start Date End Date Unknown, Provider, PCP - General 10/20/08 09/04/11 documented as of this encounter
--- OUTSIDE RECORDS SUMMARY | 2021-12-28 15:00 | XMS_ITS | Encounter Summary ---
:1945 Author Organization [facility] Address [address] [place] [address] Care Team Providers Name Role Phone Mellissa Garnett MD Primary Care Provider Encounter Details Date Type Department Care Team Description 07/21/2016 Historical Results [facility] - Gabriela Watson ne Only [facility] Radiology MD Elinor Results [address] [facility] [address] [place] [address] [place], [place] [phone] (Wo rk) Social History Tobacco Use Types Packs/Day Years Used Date Never Assessed Sex Assigned at Date Recorded Not on file documented as of this encounter Plan of Treatment Not on filedocumented as of this encounter Procedures Procedure Name Priority Date/Time Associated Comments Diagnosis XR HIP LEFT 2 VIEWS 07/21/2016 10:35 Resu lts for this W/ PELVIS EDT procedure are i n the results section. ANTI TATE ANTIBODIES Routine 07/21/2016 9:54 EDT R esults for this - [facility] procedure are i n the results section. ANTI DNA (DOUBLE Routine 07/21/2016 9:54 EDT Resu lts for this STRANDED) procedure are i n the results section. documented in this encounter Results XR HIP LEFT 2 VIEWS W/ PELVIS (07/21/2016 10:35 EDT) Specimen Narrative [facility] RADIOLOGY - 07/21/2016 10:41 EDT ? EXAM: RADIOLOGY/HIP LEFT 2 VIEWS W/ PELVI EX. D/ (1023) ? CLINICAL INFORMATION: ? M25.552 PAIN OF (L) HIP JOINT ? HIP LEFT 2 VIEWS W/ PELVIS ? Symptoms/Comments: LEFT HIP PAIN, R76.8 M25.552 PAIN OF (L) HIP JOINT ? Comparison: None. ? Findings: ? AP view of the pelvis and AP and lateral views of the left hip were ? obtained. ? Pelvis: ? No fracture or dislocation is see n. The right hip demonstrates ? mild-moderate degenerative arthro sis. There are enthesopathic changes ? on the ischial tuberosity and gre ater trochanter. No fracture or ? dislocation is identified. The sa croiliac joints demonstrate moderate ? arthrosis. 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 The ? included bowel gas pattern is non obstructive. High density foci in ? the deep pelvis may reflect eithe r uterine fibroids or ? atherosclerotic vascular calcific ations. ? Left hip: ? There is moderate osteoarthrosis of the left hip. Scattered ? enthesopathic changes are evident . No left hip fracture or ? dislocation is seen. The soft tis sues are unremarkable. ? Impression: ? 1. ??Moderate osteoarthrosis of t he left hip with mild-moderate ? arthrosis of the right hip. ? REPORT SIGNED IN OTHER VENDOR SYSTEM 07/21/2016 ?Reported B y: Anthony Noble MD ? CC: ? Transcribed Date/Time: 07/21/2016 (1041) ? Advertising Strategist: ? Printed Date/Time: 09/29/2018 (12 50) ? PAGE 1 ? Laura d Report ? Procedure Note Anthony Noble MD - 02/20/2019 EXAM: RADIOLOGY/HIP LEFT 2 VIEWS W/ PEL EX. D/ (1023) CLINICAL INFORMATION: M25.552 PAIN OF (L) HIP JOINT HIP LEFT 2 VIEWS W/ PELVIS Symptoms/Comments: LEFT HIP PAIN, R76.8 M25.552 PAIN OF (L) HIP JOINT Comparison: None. Findings: AP view of the pelvis and AP and latera l views of the left hip were obtained. Pelvis: No fracture or dislocation is seen. The right hip demonstrates mild-moderate degenerative arthrosis. T here are enthesopathic changes on the ischial tuberosity and greater t rochanter. No fracture or dislocation is identified. The sacroili ac joints demonstrate moderate arthrosis. There is severe degenerative disc disease in the inferior lumbar spine and moderate arthrosis of the pubic symphysis. The included bowel gas pattern is nonobstru ctive. High density foci in the deep pelvis may reflect either uter ine fibroids or atherosclerotic vascular calcifications . Left hip: There is moderate osteoarthrosis of the left hip. Scattered enthesopathic changes are evident. No l eft hip fracture or dislocation is seen. The soft tissues a re unremarkable. Impression: 1. Moderate osteoarthrosis of the left hip with mild-moderate arthrosis of the right hip. REPORT SIGNED IN OTHER VENDOR SYSTEM 07/21/2016 Reported By: Anthony Noble MD CC: Transcribed Date/Time: 07/21/2016 (1041 ) Advertising Strategist: Printed Date/Time: 09/29/2018 (1722) PAGE 1 Signed Report Performing Organization Address City/State/ZIP Code Phon e Number [facility] RADIOLOGY ANTI TATE ANTIBODIES - [facility] (07/21/2016 9:54 EDT) KWABENA 1 AB IGG, S - <0.2 () [facility] Comment: [facility] REFERENCE VALUE ------ <1.0 (Negative) Test Performed by: [facility] [place] [address] [place] [address] MENDER HAND AB IGG,S - <0.2 () [facility] Comment: [facility] REFERENCE VALUE ------ <1.0 (Negative) SCL 70 AB, IGG,S - <0.2 () [facility] Comment: [facility] REFERENCE VALUE ------ <1.0 (Negative) HALL AB IGG - <0.2 () [facility] Comment: [facility] REFERENCE VALUE ------ <1.0 (Negative) SS-A/RO AB, IGG,S <0.2 () [facility] Comment: [facility] REFERENCE VALUE ------ <1.0 (Negative) SS-B/LA AB,IGG,S - <0.2 () [facility] Comment: [facility] REFERENCE VALUE ------ <1.0 (Negative) Specimen Narrative [facility] - 017 14:16 EDT Does PT Have a Latex Allergy? NO Performing Organization Address City/State/ZIP Code Phon e Number [facility] [address] [place] [address] [facility] ANTI DNA (DOUBLE STRAND) (07/21/2016 9:54 EDT) Pathologist Sig nature Anti DNA (DS) <12.3 <30 IU/mL [facility] Comment: CENTER LAB Results were obtained with the [employer] L[employer] dsDNA SC DEBRA assay. Test Performed by: [place] [address] [place] Former Machine Operator: Serge Herrera MD , Ph D * DS= DOUBLE-STRANDED Specimen Narrative [facility] - 017 14:16 EDT Does PT Have a Latex Allergy? NO Performing Organization Address City/State/ZIP Code Phon e Number [facility] [address] [place], [place] [id number] [place] [address] LAB documented in this encounter Visit Diagnoses Not on filedocumented in this encounter Care Teams Bindery Machine Tender Relationship Specialty Start Date End Date Mellissa Garnett MD PCP - General 09/05/[address] [place] [address] documented as of this encounter
--- OUTSIDE RECORDS SUMMARY | 2021-12-28 15:00 | XMS_ITS | Encounter Summary ---
:1945 Author Organization [facility] Address [address] [place] [address] Care Team Providers Name Role Phone Mellissa Garnett MD Primary Care Provider Encounter Details Date Type Department Care Team Description 05/22/2021 Lab Requisition [facility] Center Nury Arenas for other Pathology & M, DO general examination Laboratory Medicine - [address] [facility] [address] [place] [phone] Social History Tobacco Use Types Packs/Day Years Used Date Never Assessed Sex Assigned at Date Recorded Not on file documented as of this encounter Plan of Treatment Not on filedocumented as of this encounter Procedures Procedure Name Priority Date/Time Associated Diagnosis Comme nts SURGICAL PATHOLOGY Today 05/21/2021 10:26 Encounter for othe r Results for this EST general examination procedur e are in the results section. documented in this encounter Results SURGICAL PATHOLOGY (05/21/2021 10:26 EST) Note to Patient The following pathology [facility] results have been CENTER interpreted by your LABORATORY pathologist and may be SERVICES available to you before your health provider has had the opportunity to review them. Please allow time for your provider to receive these results and explore management options, if applicable. Final Diagnosis A. JEJUNUM, PROXIMAL, BIOPSY: [facility] - Enteric mucosa with no significant diagnostic abnorm ality. CENTER LABORATORY B. DUODENUM, BULB, BIOPSY: SERVICES - Enteric mucosa with no significant diagnostic abnorm ality. C. STOMACH, ANTRUM, BIOPSY: - Transitional-type mucosa with no significant diagnos tic abnormality. D. STOMACH, GREATER CURVE, BIOPSY: - Oxyntic-type mucosa with no significant diagnostic a bnormality. E. GASTROESOPHAGEAL JUNCTION, 35 CM, BIOPSY: - Reactive squamocolumnar junctional mucosa. - Negative for intestinal metaplasia. - Negative for dysplasia. F. ESOPHAGUS, DISTAL, 34 CM, BIOPSY: - Squamous mucosa with no significant diagnostic abnor mality. G. COLON, CECUM, POLYP, BIOPSY: - Sessile serrated adenoma with low-grade cytologic dy splasia. See comment. 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 [facility] slides of thi s case were reviewed at the gastrointestinal/liver intradepartmental consultation conference. (NF, RW) LABORATO RY SERVICES No charge stains: Immunoperoxidase stains were performed on this case to further characterize the lesion. ANTIBODY(CLONE)(BLOCK):RESULT MLH1 (M1, [place]) (G1): Lost in dysplastic foci MLH1 (M1, [place]) (G2): Lost in dysplastic foci NOTE: One or more of the re agents used in immunoperoxidase testing in this case may not have been cleared or approved by the U.S. Food and Drug Administration (FDA). The FDA has determined that such cl earance or approval is not n ecessary. These tests are used for clinical purposes. They should not be regarded as investigational or for research. These reagents' performance characteristics have been de termined by [facility] and/or by the referring laboratory. The positive and negative controls worked appropriately. If immunoperoxidase staining has been performed on alcoh ol fixed cytology specimens, which has not been fully validated, the assays should be interpreted with caution and correlated with clinical data. This laboratory is certified under the Clinical Laborato ry Improvement Amendments of 1988 (CLIA-88) as qualified to perform high complexity clinical laboratory testing. Attestation By the signature below, [facility] tronically the attending physician CENTER sign ed by Jose, certifies that they have LABORATORY Logan Fagan MD on 1) personally conducted a SERVICES 05/25/2021 at 1604 gross and/or microscopic examination of the described specimen(s), and/or personally interpreted the results of laboratory testing of the described specimen(s), and 2) personally rendered or confirmed the above diagnosis. Clinical History GERD, constipation, [facility] abnormal CT CENTER LABORATORY SERVICES Gross A. [facility] Description Received in formalin ignacio d with proper patient identification (initials L, N) and proximal jejunum is a pale hopkins-white tissue (0.5 x 0.4 x 0.3 cm). Submitted intact in A1. CENTER LABORATORY B. SERVICES Received in formalin ignacio d with proper patient identification (initials L, N) and duodenal bulb is a pale hopkins-white tissue (0.3 x 0.2 x 0.2 cm). Submitted intact in B1. C. Received in formalin ignacio d with proper patient identification (initials L, N) and antrum is a pale hopkins-white tissue (0.6 x 0.4 x 0.2 cm). Submitted intact in C1. D. Received in formalin ignacio d with proper patient identification (initials L, N) and greater curve is a pale hopkins tissue (0.4 x 0.4 x 0.3 cm). Submitted intact in D1. E. Received in formalin ignacio d with proper patient identification (initials L, N) and GE at 35 cm are two pale hopkins-white tissues (0.4 x 0.3 x 0.1 cm and 0.3 x 0.3 x 0.2 cm). Entirely submitted in E1. F. Received in formalin ignacio d with proper patient identification (initials L, N) and distal esophagus at 34 cm is a white focally hopkins speckled tissue (0.5 x 0.4 x 0.1 cm). Submitted intact in F1. G. Received in formalin ignacio d with proper patient identification (initials L, N) and cecal polyp is a pale hopkins lobular focally brown hemorrhagic polypoid tissue (1.3 x 1.3 x 0.6 cm), and two pale hopkins- white tissues (0.3 x 0.3 x 0 .1 cm and 0.3 x 0.2 x 0.1 cm). The polypoid tissue is serially sectioned and entirely submitted in G1-G2, and the remaining smaller tissues are entirely submitted in G3. Terrence Bustos 05/23/2021 12:59 Performing Lab [facility] LABORATORY SERVICES Scanned Images [facility] SERVICES Specimen Tissue - Cecum structure (body structure ) Tissue specimen (specimen) - Entire ante rior wall of duodenal bulb (body structure) Tissue specimen (specimen) - Gastric/Sto mach, Antrum Tissue specimen (specimen) - Specimen fr om stomach obtained by total gastrectomy (specimen) Tissue specimen (specimen) - Entire esop hagus (body structure) Tissue specimen (specimen) - Entire esop hagus (body structure) Tissue specimen (specimen) - Cecum struc ture (body structure) Performing Organization Address City/State/ZIP Code Phon e Number [facility] [address] [place] [address] SERVICES documented in this encounter Visit Diagnoses Diagnosis Encounter for other general examination documented in this encounter Care Teams Cloud Solutions Architect Relationship Specialty Start Date End Date Mellissa Garnett MD PCP - General 09/05/[address] [place] [address] [address] [place] [phone] documented as of this encounter
--- OUTSIDE RECORDS SUMMARY | 2021-12-28 15:00 | XMS_ITS | Encounter Summary ---
:1945 Author Organization [facility] Address [address] [place] [address] Care Team Providers Name Role Phone Mellissa Garnett MD Primary Care Provider Encounter Details Date Type Department Care Team Description 01/14/2019 Results Only [facility] Carlos Pelletier, [address] [place] [address] (Wo rk) Social History Tobacco Use Types Packs/Day Years Used Date Never Assessed Sex Assigned at Date Recorded Not on file documented as of this encounter Plan of Treatment Not on filedocumented as of this encounter Procedures Procedure Name Priority Date/Time Associated Diagnosis Comme [facility] SURGICAL PATHOLOGY Routine 01/14/2019 22:10 Resul ts for this EDT procedure are i n the results section. documented in this encounter Results SURGICAL PATHOLOGY (01/14/2019 22:10 EDT) Pathology Report: SURGICAL PATHOLOGY REPORT [facility] Reports generated via electronic interface contain candelario ginal data; LABORATORY however they are lacking the format of the original re port. SERVICES Caution should be taken when reading/interpreting unfo rmatted reports. Name: ? JULISSA VELEZ ? Accession #: ? [id number] ? : ? 1945 (Age: [age]) ??F ? Collect Date: ? 01/14/2019 ? Location: ? [facility] ? Receive Date: ? 01/15/20 19 ? Provider: CARLOS PELLETIER DO Copy to: MELLISSA GARNETT MD ? Final Pathologic Diagnosis: SKIN OF NASAL DORSUM, SHAVE BIOPSY: - Basal cell carcinoma, superficial and nodular types. - Lesion extends to peripheral edge and base of biops y specimen. Document reviewed and electronically signed by: LEWIS KHALIL MD Report ??Date: 01/15/2019 17:04 By the signature above, the attending physician certif ies that he/she has personally conducted a gross and/or microscopic examin ation of the described specimens and rendered or confirmed the above diagnosi s. Specimen(s) Received: Nasal dorsum Clinical History: Non-healing skin lesion; clinical diagnosis code: ??D4 9.2 Gross Description: ? Received in formalin labelled with proper patient identification (initials L, N) and nasal dorsum is a shave biopsy of an irreg ular hopkins-white mottled scaly papule (0.7 x 0.4 x 0.1 cm). The margin is inked blue. The specimen is submitted intact in 1. Deonte Curry 01/15/2019 8:05 AM End of Report Specimen Performing Organization Address City/State/ZIP Code Phon e Number [facility] [address] [place] [id number] SERVICES documented in this encounter Visit Diagnoses Not on filedocumented in this encounter Care Teams Glue Cook Relationship Specialty Start Date End Date Mellissa Garnett MD PCP - General 09/05/[address] [place] [phone] documented as of this encounter
--- OUTSIDE RECORDS SUMMARY | 2021-12-28 15:00 | XMS_ITS | Encounter Summary ---
:1945 Author Organization [facility] Address [address] [place] [address] Care Team Providers Name Role Phone Mellissa Garnett MD Primary Care Provider Encounter Details Date Type Department Care Team Description 11/02/2016 Hospital Encounter [facility] [place] Unknown, Provider, [facility] [address] [facility] [phone] [place] [address] (Work) [phone] Social History Tobacco Use Types Packs/Day Years Used Date Never Assessed Sex Assigned at Date Recorded Not on file documented as of this encounter Discharge Disposition Disposition Code Departure Means Destination Home or Self Nursing Home documented in this encounter Plan of Treatment Not on filedocumented as of this encounter Visit Diagnoses Not on filedocumented in this encounter Care Teams Rn Placement Relationship Specialty Start Date End Date Mellissa Garnett MD PCP - General 09/05/[address] [place] [phone] documented as of this encounter
--- OUTSIDE RECORDS SUMMARY | 2021-12-28 15:00 | XMS_ITS | Encounter Summary ---
:1945 Author Organization [facility] Address [address] [place] [address] Care Team Providers Name Role Phone Mellissa Garnett MD Primary Care Provider Encounter Details Date Type Department Care Team Description 06/15/2020 Lab Requisition [facility] Dontrell Lazcano of Pathology & Tank Fagan DO unspecified behavior Laboratory Medicine [address] [place] [address] madisyn [facility] 5 tissue, and skin [address] [place] [phone] Social History Tobacco Use Types Packs/Day Years Used Date Never Assessed Sex Assigned at Date Recorded Not on file documented as of this encounter Plan of Treatment Not on filedocumented as of this encounter Procedures Procedure Name Priority Date/Time Associated Diagnosis Comme nts SURGICAL PATHOLOGY Today 06/15/2020 10:12 Neoplasm of Resul ts for this EST unspecified behavior procedu re are in of bone, soft the results tissue, and skin section. documented in this encounter Results SURGICAL PATHOLOGY (06/15/2020 10:12 EST) Final Diagnosis A. SKIN OF PREAURICULAR REGION, LEFT, SHAVE BIOP SY: [facility] - Hypertrophic actinic keratosis. CENTER - Lesion extends to biopsy base. LABORATO RY SERVICES Attestation By the signature [facility] Electronica lly below, the attending CENTER signed by Lazaro physician certifies LABORATORY Nury pete MD on that they have 1) SERVICES 06/16/2020 a t 1509 personally conducted a gross and/or microscopic examination of the described specimen(s), and/or personally interpreted the results of laboratory testing of the described specimen(s), and 2) personally rendered or confirmed the above diagnosis. Clinical History Non healing; clinical diagnosis code: D49.2 [facility] Gross Description A. [facility] Received in formalin ignacio d with proper patient identification (initials L, N) and left preauricular is a white skin shave that measures 0.5 x 0.4 x 0.1 cm. There is an off center white centrally sl CENTER ightly depressed papule that measures 0.4 x 0.4 cm. The margin is inked blue, the specimen is bisected and entirely submitted in A1. LABOR ATORY SERVICES MIRTA FELIX(ASCP) 06/16/2020 8:07 Performing Lab [facility] Scanned Images [facility] Specimen Tissue - Skin (tissue) specimen (specime n) Performing Organization Address City/State/ZIP Code Phon e Number [facility] [address] [place] [address] SERVICES documented in this encounter Visit Diagnoses Diagnosis Neoplasm of unspecified behavior of bone , soft tissue, and skin documented in this encounter Care Teams Professional Wrestler Relationship Specialty Start Date End Date Mellissa Garnett MD PCP - General 09/05/[address] [place], [place] [address] [place] [phone] documented as of this encounter
--- OUTSIDE RECORDS SUMMARY | 2021-12-28 15:00 | XMS_ITS | Encounter Summary ---
:1945 Author Organization [facility] Address [address] [place] [address] Care Team Providers Name Role Phone Mellissa Ren MD Primary Care Provider Encounter Details Date Type Department Care Team Description 12/01/2017 Results Only [facility] Margarita Nelson MD [phone] [facility] [facility] [place] [address] (Wo rk) Social History Tobacco Use Types Packs/Day Years Used Date Never Assessed Sex Assigned at Date Recorded Not on file documented as of this encounter Plan of Treatment Not on filedocumented as of this encounter Procedures Procedure Name Priority Date/Time Associated Diagnosis Comme [facility] SURGICAL PATHOLOGY Routine 12/01/2017 9:02 EDT Re sults for this procedure are i n the results section. documented in this encounter Results SURGICAL PATHOLOGY (12/01/2017 9:02 EDT) Pathology Report: SURGICAL PATHOLOGY REPORT [facility] Reports generated via electronic interface contain candelario ginal data; LABORATORY however they are lacking the format of the original re port. SERVICES Caution should be taken when reading/interpreting unfo rmatted reports. Name: ? JULISSA VELEZ ? Accession #: ? [id number] ? : ? 1945 (Age: 5 4) ??F ? Collect Date: ? 12/01/2017 ? Location: ? [facility] ? Receive Date: ? 12/02/19 18 ? Provider: MARGARITA WEINSTEIN MD Copy to: MELLISSA REN MD ? Final Pathologic Diagnosis: BONE AND SOFT TISSUE OF DIST AL CLAVICLE AND SUBACROMIAL BURSA, RIGHT, EXCISION: - Cortical and trabecular bone and bone marrow with ma turing trilineage hematopoiesis. - Hyperplastic synovial tiss ue with focal hemosiderin-laden macrophages, fibrin, and reactive changes. Document reviewed and electronically signed by: ALESHA CARRINGTON MD Report ??Date: 12/08/2017 10:05 By the signature above, the attending physician certif ies that he/she has personally conducted a gross and/or microscopic examin ation of the described specimens and rendered or confirmed the above diagnosi s. Specimen(s) Received: Right distal clavicle and sub acromial bursa, rotator cuff repair Clinical History: Massive rotator cuff tear, secondary top impingement from subacromial spur and AC joint arthritic spur Gross Description: ? Received in formalin labelled with proper patient identification (initials L, N) and distal clavicle is a 0.9 cm length x 2.0 cm in diameter unoriented segment of hopkins-white osseous tissue. One side of the tissue is blunted, while the opposite side is roughened and gross ly consistent with a resection margin. No masses or lesions are identified. Also present with in the container are multiple fragments of pink-t an soft tissue (2.0 x 1.5 x 0.6 cm in aggregate). No firm areas are identified. ? ?Veneer Manufacturer sections are submitted in 1 (section of bone after acid decalcification) and 2 (soft tissue ). MIRTA Dodd (ASCP) 12/04/2017 8:31 AM End of Report Specimen Performing Organization Address City/State/ZIP Code Phon e Number [facility] [address] [place] [address] SERVICES documented in this encounter Visit Diagnoses Not on filedocumented in this encounter Care Teams Private Duty Aide Relationship Specialty Start Date End Date Mellissa Ren MD PCP - General 09/05/[address] [place] [address] [address] [place] [phone] documented as of this encounter
--- OUTSIDE RECORDS SUMMARY | 2021-12-28 15:00 | XMS_ITS | Encounter Summary ---
:1945 Author Organization [facility] Address [address] [place] [address] Care Team Providers Name Role Phone Unknown, Provider Primary Care Provider Encounter Details Date Type Department Care Team Description 08/12/2010 Results Only [facility] Christianne Garnett MD Laboratory Services - [address] [place] [address] [address] [place] [phone] (Wo rk) Social History Tobacco Use Types Packs/Day Years Used Date Never Assessed Sex Assigned at Date Recorded Not on file documented as of this encounter Plan of Treatment Not on filedocumented as of this encounter Procedures Procedure Name Priority Date/Time Associated Diagnosis Comme nts PAP TEST- RESULT Routine 08/12/2010 0:00 EDT Resu lts for this ONLY procedure are i n the results section. documented in this encounter Results PAP TEST- RESULT ONLY (08/12/2010 0:00 EDT) Pathology Report: CYTOPATHOLOGY REPORT ? [facility] ? LAB Reports generated via electr onic interface contain original data; ? however they are lacking the format of the original report. ? Caution should be taken when reading/interpreting unformatted reports. ? Name: ? AGUSTIN, JULISSA R ? Accession #: ? [id number] ? : ? 1945 (Age: 65) ??F ?Collect Date: ? 08/12/2010 ? Location: ? [facility] ? R eceive Date: ? 08/13/2010 ? Provider: ALVARADO M DOBBERTIN MD ? Copy to: ? Final Report ? SPECIMEN ADEQUACY ? Satisfactory for Eval uation ? - assessment of transformati on zone component not applicable ( e.g. atrophy, ? vaginal sample, hysterectomy ) ? GENERAL CATEGORIZATION ? Negative for Intraepi thelial Lesion or Malignancy ? Menstural/ Status: ??Post Menopausal ? Previous Gynecologic Patholo gy: Yes: Years ago ? Specimen/Source: ??Pap Test, Endocervix, ThinPrep Imaging System with manual ? evaluation ? Document reviewed and electr onically signed by: ? Anahi Stevens, CT( CP)(IAC) ? Report ??Date: 05/03/ 2011 14:04 ? HPV with Pap Test ? Date Ordered: ? 0 08/17/2010 ? Status: ?? Signed Out ?Date Complete: ? 08/19/2010 ? By: ??System Interface ? Date Reported: ? 08/19/2010 ? Interpretation ? RESULT: Negative for HPV typ es 16, 18, 31, 33, 35, 39, 45, 51, 52, ? 56, 58, 59, and 68. ? Comments ? Document reviewed and electr onically signed by: ? System Interface ? Report date: 05/05/20 11 ? By the signature above, the attending physician certifies that he/she has ? personally conducted a gross and/or microscopic examination of the described ? specimens and rendered or co nfirmed the above diagnosis. ? End of Report ? Specimen Performing Organization Address City/State/[facility] Code Phon e Number [facility] [address] [place] [address] SERVICES [facility] [address] [place] [address] documented in this encounter Visit Diagnoses Not on filedocumented in this encounter Care Teams Loading Manager Relationship Specialty Start Date End Date Unknown, Provider, PCP - General 10/20/08 09/04/11 documented as of this encounter
--- OUTSIDE RECORDS SUMMARY | 2021-12-28 15:00 | XMS_ITS | Encounter Summary ---
:1945 Author Organization [facility] Address [address] [place] [address] Care Team Providers Name Role Phone Unavailable Primary Care Provider Unavailable Encounter Details Date Type Department Care Team Description 10/15/2008 Orders Only [facility] Christianne Garnett MD Laboratory Services - [address] [place] [address] [address] [place], [place] [address] [phone] Social History Tobacco Use Types Packs/Day Years Used Date Never Assessed Sex Assigned at Date Recorded Not on file documented as of this encounter Plan of Treatment Not on filedocumented as of this encounter Procedures Procedure Name Priority Date/Time Associated Diagnosis Comme [facility] CYTOPATHOLOGY Routine 10/15/2008 0:00 EDT Results for this procedure are i n the results section . documented in this encounter Results CYTOPATHOLOGY (10/15/2008 0:00 EDT) Pathology Report: CYTOPATHOLOGY REPORT ? [facility] ? LAB Reports generated via electr onic interface contain original data; ? however they are lacking the format of the original report. ? Caution should be taken when reading/interpreting unformatted reports. ? Name: ? AGUSTIN, JULISSA Darden ? Accession #: ? [id number] ? : ? 1945 (Age: 63) ??F ?Collect Date: ? 10/15/2008 ? Location: ? [facility] ? Receive Date: ? 10/16/2008 ? Provider: ? ALVARADO VALENTE MD ? Copy to: ? CYTOLOGIC DIAGNOSIS: ? Urine, voided, cytolo gic evaluation: ? 1. ?No malignan t cells identified. ? 2. ? [place] urothelial ce lls and external contamination present. ? Document reviewed and electr onically signed by: ? Yelena Plasencia MD ? Report Date: ??10/17/2008 11 :36 ? By the signature above, the attending physician certifies that he/she has ? personally conducted a gross and/or microscopic examination of the described ? specimens and rendered or co nfirmed the above diagnosis. ? Specimen Type: ? Urine, Vo ided ? Clinical History: ? Not listed ? Gross Description: ? One vial of Cytolyt w as received and processed by selective cellular ? enhancement technique. ? End of Report ? Specimen Performing Organization Address City/State/ZIP Code Phon e Number [facility] [address] [place] [address] SERVICES [facility] [address] [place] [address] documented in this encounter Visit Diagnoses Not on filedocumented in this encounter
--- OUTSIDE RECORDS SUMMARY | 2021-12-28 15:00 | XMS_ITS | Encounter Summary ---
:1945 Author Organization [facility] Address [address] [place] [address] Care Team Providers Name Role Phone Mellissa Garnett MD Primary Care Provider Encounter Details Date Type Department Care Team Description 07/21/2016 Hospital Encounter [facility] - Unknown, [place], [facility] [phone] [place] [address] (Work) [place] [address] Social History Tobacco Use Types Packs/Day Years Used Date Never Assessed Sex Assigned at Date Recorded Not on file documented as of this encounter Discharge Disposition Disposition Code Departure Means Destination Home or Self [facility] documented in this encounter Plan of Treatment Not on filedocumented as of this encounter Visit Diagnoses Not on filedocumented in this encounter Care Teams Bill Collector Relationship Specialty Start Date End Date Mellissa Garnett MD PCP - General 09/05/[address] [place] [id number] documented as of this encounter
== END ==
PROVIDERS: PCP Family Medicine; Visit Provider Family Medicine
DX: M25.571 Pain in right ankle and joints of right foot (principal); G89.11 Acute pain due to trauma; W19.XXXA Unspecified fall, initial encounter
CPT/HCPCS: 73610

== ENCOUNTER 2022-07-07 09:32 | Outpatient (CLI) | payer MEDICARE, OTHER, SELFPAY ==
--- NOTE | 2022-07-07 08:15 | DI.RAD_ITS ---
Exam(s) XR KNEE RT 3V AP,LAT,TITI EXAM: XR KNEE RT 3V AP,LAT,TITI CLINICAL HISTORY: R TKR pain. TECHNIQUE: 2D digital imaging was performed. Three images were obtained. Merchant, AP and lateral v iews were obtained. COMPARISON: CR XR KNEE RT 3V AP,LAT,TITI from 07/06/2021 FINDINGS: BONES: There are stable post operative changes present. No fracture or dislocation. JOINTS: The orthopedic hardware is in good position. No evidence of hardware loosening. SOFT TISSUE: Normal. IMPRESSION: Stable postoperative changes. DATA REPOSITORY: RADIATION DOSE DELIVERED:
== END 2022-07-07 09:33 | disposition home or self-care (01) ==
LOC: DIORS 09:32
PROVIDERS: PCP Family Medicine; Referring Provider Family Medicine; Visit Provider Student in an Organized Health Care Education/Training Program
DX: T84.84XA Pain due to internal orthopedic prosthetic devices, implants and grafts, initial encounter (principal); Z96.651 Presence of right artificial knee joint; M76.31 Iliotibial band syndrome, right leg
CPT/HCPCS: 73562; 99213

== ENCOUNTER 2022-08-08 15:25 | Outpatient (REF) | payer MEDICARE, OTHER, SELFPAY ==
[2022-08-08 21:23] LABS: Bilirubin Negative (Negative); Blood Trace-intact (Negative); Clarity Clear (Clear); Glucose Negative (Negative); Ketones Negative (Negative); Leukocyte Esterase Trace (Negative); Nitrite Negative (Negative); Specific Gravity 1.025 (1.005-1.025); Urobilinogen 0.2 mg/dL (Up to 0.2)
[2022-08-08 21:30] LABS: Bacteria Few HPF (Negative); C & S Indicated? Yes; Casts Negative LPF (Negative); Crystals Negative HPF (Negative); Epithelial Cells Few HPF (Negative); Mucus Negative (Negative); RBC 0-2 HPF (0-2)
== END 2022-08-08 15:26 | disposition home or self-care (01) ==
LOC: NCHCN 15:25
PROVIDERS: PCP Family Medicine; Visit Provider Family Medicine
DX: R32 Unspecified urinary incontinence (principal); R82.998 Other abnormal findings in urine
CPT/HCPCS: 81003; 81015; 87086

== ENCOUNTER 2022-08-09 01:24 | Outpatient (CLI) | payer MEDICARE, OTHER, SELFPAY ==
--- NOTE | 2022-08-09 10:04 | DI.RAD_ITS ---
Exam(s) XR HIP RT COMPLETE AP PELVIS EXAM: XR HIP RT COMPLETE AP PELVIS CLINICAL HISTORY: r hip pain,m25.551. TECHNIQUE: 2D digital imaging was performed of the right hip. Images were obtained. AP pelvis and lateral right hip views were obtained. COMPARISON: CR PELVIS AP from 01/24/2017 FINDINGS: BONES: No acute fracture is present. No bony destructive lesion is seen. JOINTS: No dislocation present. 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 No lucencies are s een in or about the orthopedic hardware. There is mild right acetabular spurring. In the right hip, there is joint space narrowing present the sacroiliac joints and symphysis pubis are unremarkable. SOFT TISSUE: Normal. IMPRESSION: 1. Mild degenerative changes of the right hip with joint space narrowing and acetabular spurring. DATA REPOSITORY: RADIATION DOSE DELIVERED:
--- NOTE | 2022-08-09 10:04 | DI.RAD_ITS ---
Exam(s) XR LUMBAR SPINE COMPLETE EXAM: XR LUMBAR SPINE COMPLETE CLINICAL HISTORY: DJD/DDD,m51.36. TECHNIQUE: 2D digital imaging was performed of the lumbar spine. Five images were obtained. AP, la teral, right oblique, left oblique and L5-S1 spot views were obtained. COMPARISON: CR XR LUMBAR SPINE COMPLETE from 03/03/2020 FINDINGS: BONES: No fracture or destructive lesion. There endplate osteophytes seen at multiple levels of the l umbar spine. The findings are most marked at the L1-2 and L2-L3 level. Degenerative changes of the facets are most marked at L4-5 and L5-S1. DISKS: There is disc space narrowing and vacuum discs at all lumbar spine levels. ALIGNMENT: Lumbar spinal alignment is within normal limits. No spondylolysis or spondylolisthesis. SOFT TISSUE: Surgical clips are seen in the right upper quadrant of the abdomen. A left total hip re placement is incompletely imaged. IMPRESSION: Marked degenerative changes seen in the lumbar spine. DATA REPOSITORY: RADIATION DOSE DELIVERED:
== END 2022-08-09 01:44 ==
LOC: DI 01:24
PROVIDERS: PCP Family Medicine; Visit Provider Family Medicine
DX: M25.551 Pain in right hip (principal); M51.36 Other intervertebral disc degeneration, lumbar region
CPT/HCPCS: 72110; 73502

== ENCOUNTER 2022-08-24 00:59 | Outpatient (CLI) | payer MEDICARE, OTHER, SELFPAY ==
--- NOTE | 2022-08-24 08:30 | DI.MRI_ITS ---
Exam(s) MR LUMBAR SPINE WO EXAM: MR LUMBAR SPINE WO CLINICAL HISTORY: stenosis, failed PT,INCONTINENCE,DEGENERATIVE LUMBAR DISC.R32,M51.36,M48.06. TECHNIQUE: Multiplanar multisequence MRI of the Lumbar spine was performed. COMPARISON: MR MRI - LUMBAR SPINE WO CONTRAST from 09/03/2015 CR XR LUMBAR SPINE COMPLETE from 08/09/2022 FINDINGS: Bones: The last intervertebral disc space is designated the L5/S1 level for the numbering purpose of this examination. The vertebral body heights are well maintained. Alignment is satisfactory. The ma rrow signal characteristics are unremarkable. Cord: The conus tip ends at the T12 level. It is of normal size and signal intensity. T12-L1: Prominent endplate osteophytes projecting anteriorly and toward the right. Disc space narrow ing on the right.. No disc herniations or bulges are present. No central spinal canal or neural fora gladys stenosis. L1-2: Severe loss of disc height. Endplate osteophytes projecting eccentric toward the right side ca using mild degenerative scoliosis. Moderate to severe right neural foraminal narrowing. No central canal stenosis. L2-3: Severe loss of disc height. No significant disc bulging. Mild left neural foraminal narrowing . Small nerve root sheath cysts bilaterally. No central canal stenosis. L3-4: Severe loss of disc height. Prominent disc osteophytes on the left side. Osteophytes. No sig nificant disc bulging. Mild facet joint degenerative changes. No central canal stenosis. Mild bila teral neural foraminal narrowing. L4-5: Severe loss of disc height. No significant disc bulging. Facet degenerative changes. Mild na rrowing of the transverse dimension of the central canal. Severe bilateral neural foraminal narrowin g. L5-S1: Minimal disc osteophytes. Mild facet degenerative changes. Moderate right and mild left neur al foraminal narrowing. No central spinal canal stenosis.. The visualized SI joints and sacrum are well maintained. Soft tissues: The paraspinal soft tissues are unremarkable. IMPRESSION: Multi level loss disc height and endplate osteophytes. Neural foraminal narrowing greatest at L4-5 b ilaterally. Slight central canal stenosis at L4-5. DATA REPOSITORY:
== END 2022-08-24 01:19 ==
LOC: DI 00:59
PROVIDERS: PCP Family Medicine; Visit Provider Family Medicine
DX: M48.061 Spinal stenosis, lumbar region without neurogenic claudication (principal); M51.36 Other intervertebral disc degeneration, lumbar region; R32 Unspecified urinary incontinence
CPT/HCPCS: 72148

== ENCOUNTER 2022-09-26 13:54 | Outpatient (CLI) | payer MEDICARE, OTHER, SELFPAY ==
[2022-09-26 12:27] LABS: HCT 37.4 % (36.0-46.0); HGB 12.7 g/dL (11.2-15.7); MCH 30.6 pg (27.0-33.0); MCV 90 fL (80-95); MPV 9.6 fL (8.0-11.0); Platelet Count 205 10^3/uL (130-400); RBC 4.15 10^6/uL (3.93-5.22); RDW 12.8 % (11.7-14.6); RDW-SD 42.5 fL; WBC 7.41 10^3/uL (4.4-10.8)
[2022-09-26 13:30] LABS: ALT 19 U/L (14-59); AST 23 U/L (15-37); Albumin 3.6 g/dL (3.4-5.0); Alkaline Phosphatase 99 U/L (46-116); Anion Gap 4.2 mmol/L (3-11); BUN 19 mg/dL (7-18); Bilirubin, Total 0.5 mg/dL (0.2-1.0); CO2 28.8 mmol/L (21.0-32.0); CREATININE 0.9 mg/dL (0.55-1.02); Calcium 9.5 mg/dL (8.5-10.1); Chloride 106 mmol/L (98-107); Estimated GFR 65.03 (mL/min/1.73m2); Glucose 101 mg/dL (74-106); Potassium 4.1 mmol/L (3.5-5.1); Sodium 139 mmol/L (136-145); TSH (W/Ref FT4) 1.81 uIU/mL (0.36-3.74)
== END 2022-09-26 13:55 | disposition home or self-care (01) ==
LOC: LBO 13:55
PROVIDERS: PCP Family Medicine; Visit Provider Family Medicine
DX: I10 Essential (primary) hypertension (principal); F32.89 Other specified depressive episodes; D12.6 Benign neoplasm of colon, unspecified
CPT/HCPCS: 36415; 80053; 85027; 84443

== ENCOUNTER → 2022-10-13 10:02 | Outpatient (BNVA) | payer MEDICARE, OTHER, SELFPAY | PROVIDERS: PCP Family Medicine; Referring Provider Family Medicine; Visit Provider Physical Therapy Assistant | DX: Z12.11 Encounter for screening for malignant neoplasm of colon (principal) ==

== ENCOUNTER 2022-10-28 09:07 | Day surgery (SDC) | payer MEDICARE, OTHER, SELFPAY ==
--- NOTE | 2022-10-27 18:45 | W.COLOREPORT ---
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 Monitors were applied and a time out was done. The patients name, date of , procedure, allergies to medications and metal in their body was reviewed. The patient was then sedated. Once sedated and comfortable a rectal exam was done. External exam was normal. Internal exam revealed a normal sphincter tone and no palpable masses. The scope was then introduced and retrofelexed. No internal hemorrhoids were identified. The scope was then advanced to the cecum some difficulty. We did have to use abdominal pressure and reposition her supine in order to maneuver the scope into the cecum. There is no signs of tumor within the cecum. THe prep was a BBPS 3 in all segments for total of 9. the TI and appendiceal orifice were identified. The scope was then slowly retracted over 13 minutes back into the rectum. She has minor diverticula confined to the sigmoid colon. There is no signs of active bleeding or infection. She had a 1 cm flat polyp at 30 cm. This is removed with a cold snare. She had a 5 mm flat polyp in the rectum and this is removed with a cold biting forcep. All specimen is retrieved and no bleeding is noted. The scope was removed and the patient was woken up and taken back to Same day surgery in stable condition. The patient tolerated the procedure well and there were no immediate complications. Follow up: The patient should follow up in 1 year vs a flex sig, unless they develop changes in bowel habits or other new gastrointestinal complaints.
--- NOTE | 2022-10-27 18:46 | PDOC.DSDIS_ITS ---
Date of service: 10/28/22 Time of Service: 10:58 Discharge Plan Disposition Patient Disposition: Home Condition: Good Discharge Details Reason For Visit: colon scope Attending Provider: Nury Arenas Primary Care Provider: Mellissa Garnett Home Meds and New Rx's Prescriptions: Continued Systane Complete 0.6 % drops 1 drp OP TID PRN bisacodyl [Dulcolax (bisacodyl)] 5 mg tablet,delayed release (DR/EC) 5 mg PO ONCE Qty: 4 0RF Rx Instructions: Take per colonoscopy instructions provided by ordering providers office polyethylene glycol 3350 17 gram/dose powder 17 g PO ONCE Qty: 238 0RF Rx Instructions: Take per colonoscopy instructions provided by ordering providers office nystatin 100,000 unit/gram powder 1 applic Topical BID PRNQty: 60 Rx Instructions: 1-3 GM BID citalopram 20 mg tablet 20 mg PO DAILY Qty: 90 3RF pantoprazole 40 mg tablet,delayed release (DR/EC) See Rx Instructions .ROUTE .COMPLEX Qty: 30 12RF Dose Instruction: TAKE ONE TABLET BY MOUTH EVERY DAY Rx Instructions: TAKE ONE TABLET BY MOUTH EVERY DAY celecoxib [Celebrex] 200 mg capsule 200 mg PO DAILY Qty: 90 5RF acetaminophen 500 mg tablet 1,000 mg PO Q8H PRN (Reason: pain) Qty: 90 3RF Fortify Probiotic 50 billion cell-50 mg Capsule,Delayed Release(Dr/Ec) 1 cap PO DAILY multivitamin 1 EACH capsule 1 cap PO DAILY cholecalciferol (vitamin D3) [Vitamin D3] 1,000 UNIT capsule 1,000 unit PO DAILY Jqnepjvf-Nfzobr-EAY with vit D 1 EACH tablet 1 tab PO DAILY Discharge Instructions Additional Instructions: DSU Colonoscopy Post- Op Instructions Instructions for Everyone who is given Anesthesia: For your safety, please do the following for the next twenty-four (24) hours: *Do Not operate a motor vehicle (car, truck, motorcycle, etc.) *Do Not drink alcoholic beverages or use any recreational drugs for the first 24 hours or while taking pain medications. The medications in your body may have a reaction that can be dangerous. *Do Not make any important decisions or sign any important papers. Findings: polyps and diverticula Follow up: -My office will contact you with results and when we want to repeat the colonoscopy. 1. No lifting over 20 pounds or strenuous activity for the first 24 hours after your procedure. After 24 hours there are no restrictions on your activity but you may feel fatigued for a few days. 2. After you arrive home you may have a light meal and return to your normal diet as you can tolerate it without feeling sick to your stomach. 3. You may have a bloated, gaseous feeling in your belly (abdomen) after a colonoscopy. Passing gas and belching will help. Walking or lying down on your left side with your knees flexed may relieve the discomfort. Call the office at [phone] (Office) or [phone] (Hospital) right away if you notice any of the following: a.Vomiting of blood or ?coffee ground stools?. b.Rectal bleeding 1Tbsp, blood clots or continuous bleeding. c.Severe belly (abdominal) pain. d.A hard distended belly (abdomen) and an inability to pass gas. 4. Please don?t expect to have a normal BM (bowel movement) for 2-3 days after your procedure. 5. If there are questions regarding the findings of your procedure, please contact your doctor 6. If you are unable to contact your doctor with a problem, contact the hospital at [phone]. 7. Continue all your regular medications unless directed otherwise. I understand the above instructions and have no questions. Signature of Patient or Adult Escort Name of Responsible Adult Escort Signature of Nurse Date/Time Activity:: See above Diet:: See above Discharge Orders Discharge Orders: Discharge Order (Routine); Ordered 10/28/22 Ordered By: Nury Arenas DS: Diagnosis Discharge Diagnosis (1) Serrated adenoma of colon: Status: Acute Asessment and Plan: Post [place]kinson Note/Eval The patient is seen and examined after their colonoscopy.? The patient has been able to pass gas.? They are not having abdominal pain.? They have been able to tolerate liquids and a snack.? They do not have any nausea or vomiting.? They are not having any chest pain or shortness of breath.??? They are not having any rectal bleeding. Their vital signs have been stable-see nursing notes. We discussed findings during their colonoscopy, and any biopsies that were done/polyps that were removed. The patient will be sent a letter with any biopsy results, and when to repeat the colonoscopy.-see discharge instructions. Patient was given explicit instructions to follow-up regarding colonoscopy-refer to discharge instructions.? We reviewed resumption of medications. Patient verbalized understanding and discharged in stable and satisfactory condition- See nursing notes. (2) Degenerative lumbar disc: Status: Acute (3) Urinary incontinence: Status: Acute (4) Essential hypertension: Status: Chronic (5) Depressive disorder: Status: Chronic (6) Diverticulosis of colon without diverticulitis: Status: Chronic (7) Ggmfd-4-kvwhsypneaa deficiency: (8) Carotid artery stenosis: (9) Chronic GERD: (10) Chronic maxillary sinusitis: (11) Chronic cystitis:
--- NOTE | 2022-10-28 06:38 | ANES.PREOP_ITS ---
General Info Height: 5 ft 2 in Weight: 65.771 kg Body Mass Index (BMI): 26.5 Surgical Procedure: Operation Date: 10/28/22 10:05 Proposed Procedure Side Surgeon rae Arenas, Meds Allergies and Home Medications Allergies Allergy/AdvReac Type Severity Reaction Status Date / Time oxycodone HCl [From Percocet] AdvReac hallucinati Verified 10/27/22 12:05 ons Home Medication Medication Instructions Recorded multivitamin 1 cap PO DAILY 07/14/17 cholecalciferol (vitamin D3) 25 1,000 unit PO DAILY 11/21/17 mcg (1,000 unit) capsule (Vitamin D3) glucosamine 750 eq-hhvevk-pad 2-C 1 tab PO DAILY 12/01/17 30 mg-D3 1,000 unit-ricardo 1 mg tablet (Cudvsqxqqiv-Vbrclbgzqcu-ALL + vitD) nystatin 100,000 unit/gram topical 1 applic topical BID PRN #60 grams 06/19/18 powder acetaminophen 500 mg tablet 1,000 mg PO Q8H PRN pain #90 tabs 04/03/19 propylene glycol 0.6 % eye drops 1 drp ophthalmic (eye) TID PRN 06/08/20 (Systane Complete) citalopram 20 mg tablet 20 mg PO DAILY #90 tab-caps 10/01/21 pantoprazole 40 mg tablet,delayed See Rx Instructions .Route 06/13/22 release .COMPLEX #30 tabs celecoxib 200 mg capsule (Celebrex) 200 mg PO DAILY #90 caps 08/26/22 bisacodyl 5 mg tablet,delayed 5 mg PO ONCE #4 tabs 10/13/22 release (Dulcolax (bisacodyl)) polyethylene glycol 3350 17 17 g PO ONCE #238 grams 10/13/22 gram/dose oral powder Lacto-B.anim,bifid-inulin 50 1 cap PO DAILY 10/27/22 billion cell-50 mg capsule,delay release (Fortify Probiotic) Current Visit Medications: Current Medications Generic Name Dose Route Start Last Admin Trade Name Freq PRN Reason Stop Dose Admin Ringer's Solution 1,000 mls @ 80 mls/hr 10/28/22 06:00 IV 11/26/22 23:59 INFUSION LILY IV Miscellaneous Supplies 1 each 10/28/22 06:00 Iv Access IV 11/26/22 23:59 DIRECTED LILY Ondansetron HCl 4 mg 10/28/22 06:42 Ondansetron 4 Mg/2 Ml Vial IVP 11/27/22 06:41 Q4H PRN PRN Nausea / Vomiting Sodium Chloride 0 ml 10/28/22 06:00 Normal Saline Flush 10 Ml Syr IV 11/26/22 23:59 PRN PRN Sodium Chloride 0 ml 10/28/22 06:00 Normal Saline 10 Ml Vial IJ 11/26/22 23:59 DIRECTED PRN Sterile Water 0 ml 10/28/22 06:00 Water,Injection,Sterile 10 Ml Vial IJ 11/26/22 23:59 DIRECTED PRN PFSH Active Problems Active Problems: Problem Status Onset Code Stenosis, spinal, lumbar M48.061 Incontinence R32 Right hip pain M25.551 Degenerative lumbar disc M51.36 Urinary incontinence R32 Essential hypertension 02/12/13 I10 Depressive disorder F32.9 Serrated adenoma of colon D12.6 Diverticulosis of colon without diverticulitis K57.30 DNR (do not resuscitate) Z66 Medical History Medical History Abdominal or pelvic swelling, mass, or lump, left lower quadrant (03/16/01) Abnormal weight loss (01/30/17) Adenomatous colon polyp cecum 06/08 Qbbhc-7-mqxestiedef deficiency Anemia (12/26/11) Ankle pain Anxiety Aphthous ulcer (01/30/14) Arthritis of left hip (08/02/16) Asthma, exercise induced (10/03/13) Balance disorder (08/31/17) Bilateral thumb pain Carotid artery stenosis MRI in 2004 shows carotid on the left 50-60% occlusion. vision and speech changes. 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 visual changes, repeated 2005 was normal; visual speech changes-MRI/MRA 2004 showed small vessel disease in the adali ? of ischemic disea Diverticula of colon Dysplastic colon polyp cecum- low grade. Repeat CE October 2021 Elevated blood pressure reading Epicondylitis Epigastric abdominal pain Gastritis Gastroesophageal reflux disease with esophagitis (06/27/08) 06/10/08-06/12/08 Single Capsule Loza pH study placed after EGD Giardiasis Granulomatous disorder of the skin and subcutaneous tissue, unspecified Grief Headache Hematoma of eyelid Hematuria Herpes zoster Pt. states years ago Hiatal hernia History of skin cancer Hypertension Hypokalemia (12/26/11) Lethargy (05/11/15) Lumbago MRI in 1995 showed DJD and DDD. No stenosis or herniation.; 02/22/10-steroid inj. into the greater trochanteric bursa-Dr. Moya Lumbar back pain with radiculopathy affecting right lower extremity Malignant neoplasm of urinary bladder Myalgia Nail dystrophy Neck pain (05/31/16) Osteopenia dexa 2003 showing T-scores -1.6, -0.7, 1.1 Pain, foot Peripheral neuropathy (09/21/15) Pes anserinus bursitis of right knee Positive ASH (antinuclear antibody) (06/07/16) Postoperative examination Primary osteoarthritis of left knee Right knee injury Right knee pain Right sided facial pain RLQ abdominal pain Short of breath on exertion (07/17/14) Shoulder pain Sinusitis Skin cancer, basal cell Skin tag, acquired Spinal stenosis Spondylosis of lumbar region without myelopathy or radiculopathy Stress at home Tendinitis of ankle Trigeminal neuralgia (09/17/14) Trochanteric bursitis, right hip Injection: 03/05/2021 Upper airway resistance syndrome Vertigo Vitamin D deficiency (12/28/11) Vulvar pain (09/16/11) Wound cellulitis Surgical History Surgical History Appendectomy (04/17/80) Bladder Surgery (~1994) resection Bursectomy Left trochanteric Cholecystectomy (~1980) Colonoscopy - MAC (~05/21/21) 2000 Dilation and curettage 1975 1981 EGD - MAC (~2000) History of esophagogastroduodenoscopy (~05/21/21) History of right shoulder replacement 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 Hunter Hx of shoulder replacement [facility] Dr. Segundo. August 2018 Rotator Cuff Repair 12/01/17 (R) Nita S/P knee replacement Tonsillectomy and adenoidectomy as a small child 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 MCLAUGHLIN LEFT total hip not right. Tobacco Smoking/Tobacco Use Status: Never Passive smoking exposure: Yes Second hand exposure: Yes Alcohol Alcohol Intake: never Substance Use Substance use: Never Substance use type: does not use Vital Signs and Lab Results Lab Results Blood Type / Crossmatch: No Data to Display Complete Blood Count: No Data to Display Complete Metabolic Panel: No Data to Display Liver Function Panel: No Data to Display Coagulation Panel: No Data to Display Cardiac Panel: No Data to Display Arterial Blood Gas: No Data to Display Venous Blood Gas: No Data to Display Pancreas Panel: No Data to Display Thyroid Panel: No Data to Display Infectious Disease: No Data to Display Blood Cultures: No Data to Display Toxicology Panel: No Data to Display Imaging and Studies Imaging and Studies Study information below may be from another EMR and interpreted by another provider. Please see original notes in EMR for more complete details. Stress Test Summary: 05/17/2017 - Normal study after maximal exercise. - Low risk of cardiac events. Summary: 1. Myocardial perfusion imaging: No myocardial perfusion defects noted. 2. The calculated left ventricular ejection fraction after stress: 70%. LV global systolic function is normal. No left ventricular regional motion abnormality. Echocardiogram Summary: Date of Exam: 08/14/14Sex: F Impressions: Normal study. Summary: 1. Left ventricle: The cavity size was normal. Wall thickness was normal. Systolic function was normal. The estimated ejection fraction was 60-65%. Wall motion was normal; there were no regional wall motion abnormalities. 2. Aortic valve: Trileaflet; normal thickness leaflets. 3. Mitral valve: Structurally normal valve. 4. Left atrium: The atrium was normal in size. 5. Right ventricle: The cavity size was normal. Wall thickness was normal. Systolic function was normal. 6. Tricuspid valve: Structurally normal valve. 7. Pulmonary arteries: Pulmonary systolic pressure was within the normal range. Carotid Artery Summary:: Date of Exam: 05/13/15 CONCLUSION: No evidence of a hemodynamically significant carotid stenosis. Pulmonary Function Summary: 09/28 Mild obstructive airways disease with significant bronchodilator response. Anesthesia Assessment and Plan Anesthesia History Personal History: No History of Anesthesia Complications Family History: No Family History of Anesthesia Complications Exercise Tolerance Exercise Tolerance: Metabolic Equivalents>4 Implantable Cardiac Device Does patient have a Pacemaker or an ICD?: No Airway Exam Known Difficult Airway: No Mallampati Class: 2 Mouth Opening: Normal (> 3cm) Thyromental Distance: Less than 3 cm Neck Range of Motion: Full ROM Neck Circumference: Normal Teeth Condition: Normal Dentition ASA Classification ASA Score: ASA 2 Emergency Case?: No Anesthesia Plan Resuscitation Status: Full Code Anesthesia Technique: General Anesthesia Airway Planned: Natural Airway Monitors Used: Standard Monitors Preoperative Comments:: 77 yo female for colo. DNR? Sig PMHx: HTN, alpha-1 antitrypsin deficiency, anxiety/depression, spinal stenosis, carotid stenosis, GERD, low back pain, Previous Anes: - MERCEDEZ, LMA 4 with ? spasm, ETT placed, MAC 3 grade 1. - shoulder, mac 3 grade 3, easy mask. - TKA, spinal, prop sedation, no issues. - c/g, prop, topical lido, natural airway, no issues, glyco/glucagon for colon spasms. - colo, prop, lido, glucagon, no issues.
[2022-10-28 09:23] VITALS: BP 183/86; PULSE 70; RESP 16; TEMP 36; O2SAT 97
[2022-10-28] MEDS: Lactated Ringers 1,000 ML 80 ML IV (09:47)
--- NOTE | 2022-10-28 10:02 | ANES.PREOP_ITS ---
General Info Date of Service Date Performed: 10/28/22 Height: 5 ft 2 in Weight: 62.3 kg Body Mass Index (BMI): 25.1 Surgical Procedure: Operation Date: 10/28/22 10:05 Proposed Procedure Side Surgeon rae Arenas, DO Meds Allergies and Home Medications Allergies Allergy/AdvReac Type Severity Reaction Status Date / Time oxycodone HCl [From Percocet] AdvReac hallucinati Verified 10/28/22 09:31 ons Home Medication Medication Instructions Recorded multivitamin 1 cap PO DAILY 07/14/17 cholecalciferol (vitamin D3) 25 1,000 unit PO DAILY 11/21/17 mcg (1,000 unit) capsule (Vitamin D3) glucosamine 750 ye-ayixcq-lwu 2-C 1 tab PO DAILY 12/01/17 30 mg-D3 1,000 unit-ricardo 1 mg tablet (Xvrhytpfovg-Rmryednysqz-NXL + vitD) nystatin 100,000 unit/gram topical 1 applic topical BID PRN #60 grams 06/19/18 powder acetaminophen 500 mg tablet 1,000 mg PO Q8H PRN pain #90 tabs 04/03/19 propylene glycol 0.6 % eye drops 1 drp ophthalmic (eye) TID PRN 06/08/20 (Systane Complete) citalopram 20 mg tablet 20 mg PO DAILY #90 tab-caps 10/01/21 pantoprazole 40 mg tablet,delayed See Rx Instructions .Route 06/13/22 release .COMPLEX #30 tabs celecoxib 200 mg capsule (Celebrex) 200 mg PO DAILY #90 caps 08/26/22 bisacodyl 5 mg tablet,delayed 5 mg PO ONCE #4 tabs 10/13/22 release (Dulcolax (bisacodyl)) polyethylene glycol 3350 17 17 g PO ONCE #238 grams 10/13/22 gram/dose oral powder Lacto-B.anim,bifid-inulin 50 1 cap PO DAILY 10/27/22 billion cell-50 mg capsule,delay release (Fortify Probiotic) Current Visit Medications: Current Medications Generic Name Dose Route Start Last Admin Trade Name Freq PRN Reason Stop Dose Admin Ringer's Solution 1,000 mls @ 80 mls/hr 10/28/22 06:00 10/28/22 09:47 IV 11/26/22 23:59 80 mls/hr INFUSION LILY Administration IV Miscellaneous Supplies 1 each 10/28/22 06:00 Iv Access IV 11/26/22 23:59 DIRECTED LILY Ondansetron HCl 4 mg 10/28/22 06:42 Ondansetron 4 Mg/2 Ml Vial IVP 11/27/22 06:41 Q4H PRN PRN Nausea / Vomiting Sodium Chloride 0 ml 10/28/22 06:00 Normal Saline Flush 10 Ml Syr IV 11/26/22 23:59 PRN PRN Sodium Chloride 0 ml 10/28/22 06:00 Normal Saline 10 Ml Vial IJ 11/26/22 23:59 DIRECTED PRN Sterile Water 0 ml 10/28/22 06:00 Water,Injection,Sterile 10 Ml Vial IJ 11/26/22 23:59 DIRECTED PRN PFSH Active Problems Active Problems: Problem Status Onset Code Stenosis, spinal, lumbar M48.061 Incontinence R32 Right hip pain M25.551 Degenerative lumbar disc M51.36 Urinary incontinence R32 Essential hypertension 02/12/13 I10 Depressive disorder F32.9 Serrated adenoma of colon D12.6 Diverticulosis of colon without diverticulitis K57.30 DNR (do not resuscitate) Z66 Medical History Medical History Abdominal or pelvic swelling, mass, or lump, left lower quadrant (03/16/01) Abnormal weight loss (01/30/17) Adenomatous colon polyp cecum 06/08 Ncmfd-3-djwvsfubckk deficiency Anemia (12/26/11) Ankle pain Anxiety Aphthous ulcer (01/30/14) Arthritis of left hip (08/02/16) Asthma, exercise induced (10/03/13) Balance disorder (08/31/17) Bilateral thumb pain Carotid artery stenosis MRI in 2004 shows carotid on the left 50-60% occlusion. vision and speech changes. 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 visual changes, repeated 2005 was normal; visual speech changes-MRI/MRA 2004 showed small vessel disease in the adali ? of ischemic disea Diverticula of colon Dysplastic colon polyp cecum- low grade. Repeat CE October 2021 Elevated blood pressure reading Epicondylitis Epigastric abdominal pain Gastritis Gastroesophageal reflux disease with esophagitis (06/27/08) 06/10/08-06/12/08 Single Capsule Loza pH study placed after EGD Giardiasis Granulomatous disorder of the skin and subcutaneous tissue, unspecified Grief Headache Hematoma of eyelid Hematuria Herpes zoster Pt. states years ago Hiatal hernia History of skin cancer Hypertension Hypokalemia (12/26/11) Lethargy (05/11/15) Lumbago MRI in 1995 showed DJD and DDD. No stenosis or herniation.; 02/22/10-steroid inj. into the greater trochanteric bursa-Dr. Moya Lumbar back pain with radiculopathy affecting right lower extremity Malignant neoplasm of urinary bladder Myalgia Nail dystrophy Neck pain (05/31/16) Osteopenia dexa 2003 showing T-scores -1.6, -0.7, 1.1 Pain, foot Peripheral neuropathy (09/21/15) Pes anserinus bursitis of right knee Positive ASH (antinuclear antibody) (06/07/16) Postoperative examination Primary osteoarthritis of left knee Right knee injury Right knee pain Right sided facial pain RLQ abdominal pain Short of breath on exertion (07/17/14) Shoulder pain Sinusitis Skin cancer, basal cell Skin tag, acquired Spinal stenosis Spondylosis of lumbar region without myelopathy or radiculopathy Stress at home Tendinitis of ankle Trigeminal neuralgia (09/17/14) Trochanteric bursitis, right hip Injection: 03/05/2021 Upper airway resistance syndrome Vertigo Vitamin D deficiency (12/28/11) Vulvar pain (09/16/11) Wound cellulitis Medical History Comments:: 10/28/22 pt reorts pain in RLQ abdomen Surgical History Surgical History Appendectomy (04/17/80) Bladder Surgery (~1994) resection Bursectomy Left trochanteric Cholecystectomy (~1980) Colonoscopy - MAC (~05/21/21) 2000 Dilation and curettage 1975 1981 EGD - MAC (~2000) History of esophagogastroduodenoscopy (~05/21/21) History of right shoulder replacement 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 Hunter Hx of shoulder replacement [facility] [place] Dr. Segundo. August 2018 Rotator Cuff Repair 12/01/17 (R) Nita S/P knee replacement Tonsillectomy and adenoidectomy as a small child 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 MCLAUGHLIN LEFT total hip not right. Tobacco Smoking/Tobacco Use Status: Never Passive smoking exposure: Yes Second hand exposure: Yes Alcohol Alcohol Intake: never Substance Use Substance use: Never Substance use type: does not use Vital Signs and Lab Results Vital Signs Most Recent Vital Signs in EMR: Most Recent Vital Signs Temp Pulse Resp BP Pulse Ox 36 C L 70 16 183/86 H 97 10/28/22 09:23 10/28/22 09:23 10/28/22 09:23 10/28/22 09:23 10/28/22 09:23 Lab Results Blood Type / Crossmatch: No Data to Display Complete Blood Count: No Data to Display Complete Metabolic Panel: No Data to Display Liver Function Panel: No Data to Display Coagulation Panel: No Data to Display Cardiac Panel: No Data to Display Arterial Blood Gas: No Data to Display Venous Blood Gas: No Data to Display Pancreas Panel: No Data to Display Thyroid Panel: No Data to Display Infectious Disease: No Data to Display Blood Cultures: No Data to Display Toxicology Panel: No Data to Display Imaging and Studies Imaging and Studies Study information below may be from another EMR and interpreted by another provider. Please see original notes in EMR for more complete details. Stress Test Summary: 05/17/2017 - Normal study after maximal exercise. - Low risk of cardiac events. Summary: 1. Myocardial perfusion imaging: No myocardial perfusion defects noted. 2. The calculated left ventricular ejection fraction after stress: 70%. LV global systolic function is normal. No left ventricular regional motion abnormality. Echocardiogram Summary: Date of Exam: 08/14/14Sex: F Impressions: Normal study. Summary: 1. Left ventricle: The cavity size was normal. Wall thickness was normal. Systolic function was normal. The estimated ejection fraction was 60-65%. Wall motion was normal; there were no regional wall motion abnormalities. 2. Aortic valve: Trileaflet; normal thickness leaflets. 3. Mitral valve: Structurally normal valve. 4. Left atrium: The atrium was normal in size. 5. Right ventricle: The cavity size was normal. Wall thickness was normal. Systolic function was normal. 6. Tricuspid valve: Structurally normal valve. 7. Pulmonary arteries: Pulmonary systolic pressure was within the normal range. Carotid Artery Summary:: Date of Exam: 05/13/15 CONCLUSION: No evidence of a hemodynamically significant carotid stenosis. Pulmonary Function Summary: 09/28 Mild obstructive airways disease with significant bronchodilator response. Anesthesia Assessment and Plan Anesthesia History Personal History: No History of Anesthesia Complications Family History: No Family History of Anesthesia Complications Exercise Tolerance Exercise Tolerance: Metabolic Equivalents>4 Pertinent Negatives Pertinent Negatives: No Symptoms of GERD Cardiac & Pulmonary Exam Cardiac Exam: Normal S1/S2 Heart Sounds Pulmonary Exam: Clear Bilateral Breath Sounds Implantable Cardiac Device Does patient have a Pacemaker or an ICD?: No Airway Exam Known Difficult Airway: No Mallampati Class: 2 Mouth Opening: Normal (> 3cm) Thyromental Distance: Less than 3 cm Neck Range of Motion: Full ROM Neck Circumference: Normal Teeth Condition: Normal Dentition ASA Classification ASA Score: ASA 2 Emergency Case?: No NPO Status NPO Status: NPO Clears >2 hours, Solids >8 hours Anesthesia Plan Resuscitation Status: Full Code Anesthesia Technique: General Anesthesia Airway Planned: Natural Airway Monitors Used: Standard Monitors
[2022-10-28 10:03] VITALS: BMI 25.1
--- NOTE | 2022-10-28 10:26 | BOWEL_PTH ---
PATIENT: Julissa Etienne LOC: [facility] U#:[id number] AGE/SX: 77/F ROOM: RE10/28/[address]: Nury Arenas : 1945 BED: DIS: 10/28/2022 SPEC #: [id number] RECD: 10/28/22 12:27 STATUS: KARMEN RESimón #: [id number] ELIAS: 10/28/22 10:[address]: Nury Arenas DEPT: Surgical Specimen RECD BY: Zuly Multani ENTERED: 10/28/22 12:28 SP TYPE: Bowel OTHR DR: Mellissa Garnett MD, DC Tissues: 1 - BIOPSY BOWEL 2 - BIOPSY BOWEL Procedures: GROSS AND MICRO LEVEL 4 Comments: [id number]
[2022-10-28 10:53] VITALS: BP 137/73; PULSE 63; RESP 16; TEMP 36.3; O2SAT 98
--- NOTE | 2022-10-28 11:06 | W.ANESPOSTOP ---
Postoperative Evaluation Date, Time and Location Date Performed: 10/28/22 Time Performed: 11:06 Patient Location: Med/Surg Vital Signs Most Recent Imported Vital Signs: Most Recent Vital Signs Temp Pulse Resp BP Pulse Ox 36.3 C L 63 16 137/73 98 10/28/22 10:53 10/28/22 10:53 10/28/22 10:53 10/28/22 10:53 10/28/22 10:53 Pain Score Most Recent Pain Score: Most Recent Pain Score Pain Level 0 10/28/22 10:53 Assessment Mental Status: Arousable with meaningful communication Airway and Respiratory Function: Patent airway with normal (patient baseline) respiratory exam Cardiovascular Function: Hemodynamically Stable Hydration Status: Adequately Hydrated Nausea & Vomiting: No Nausea or Vomiting Pain: Pt. Denies Any Pain Peripheral Nerve Block: Patient did not receive a nerve block
[2022-10-28 11:26] VITALS: BP 171/95; PULSE 69; RESP 17; TEMP 36.4; O2SAT 95
== END 2022-10-28 12:05 | disposition home or self-care (01) ==
PROVIDERS: PCP Family Medicine; Visit Provider Surgery
PROC: 0DJD8ZZ Inspection of Lower Intestinal Tract, Via Natural or Artificial Opening Endoscopic (ICD-10-PCS; CPT 45378; principal; 2022-10-28 10:00)
DX: Z12.11 Encounter for screening for malignant neoplasm of colon (principal); K63.5 Polyp of colon; K62.1 Rectal polyp; Z86.010 Personal history of colon polyps
CPT/HCPCS: 45385; 45380; 88305

== ENCOUNTER 2022-12-23 09:17 | Outpatient (CLI) | payer MEDICARE, OTHER, SELFPAY ==
--- NOTE | 2022-12-23 08:00 | DI.RAD_ITS ---
Exam(s) XR KNEE RT 2V AP,LAT EXAM: XR KNEE RT 2V AP,LAT CLINICAL HISTORY: eval R medial knee pain. TECHNIQUE: 2D digital imaging was performed of the right knee. Two views obtained. AP and lateral views were obtained. COMPARISON: CR XR KNEE RT 3V AP,LAT,TITI from 07/07/2022 FINDINGS: BONES: No acute fracture is present. No bony destructive lesion is seen. JOINTS: There are stable postsurgical changes of a right total knee replacement. No evidence of hard cota failure. No joint effusion is seen. SOFT TISSUE: Normal. IMPRESSION: Stable right total knee replacement. DATA REPOSITORY: RADIATION DOSE DELIVERED:
== END 2022-12-23 09:18 | disposition home or self-care (01) ==
LOC: DIORS 09:17
PROVIDERS: PCP Family Medicine; Referring Provider Family Medicine; Visit Provider Student in an Organized Health Care Education/Training Program
DX: M70.51 Other bursitis of knee, right knee (principal)
CPT/HCPCS: 99213; 73560

== ENCOUNTER → 2022-12-29 01:36 | Outpatient (CLI) | payer MEDICARE, OTHER, SELFPAY ==
--- NOTE | 2022-12-29 11:04 | DI.US_ITS ---
Exam(s) US CAROTID EXAM: US CAROTID CLINICAL HISTORY: clot seen on eye exam in L eye,VISION CHANGES, H53.9,TRANSIENT VISION LOSS. TECHNIQUE: Ultrasound carotids performed using grayscale, color-flow, and spectral Doppler imaging. COMPARISON: No exams were available for comparison FINDINGS: RIGHT CAROTID ARTERY: Plaque: Minimal. Velocity elevation: None. LEFT CAROTID ARTERY: Plaque: Mild plaque at bulb and proximal internal carotid artery.. Velocity elevation: None. VERTEBRAL ARTERIES: Antegrade flow. Measurements: R Bulb: 40cm/s PS / 10.2cm/s ED R CCA: 67.2cm/s PS / 18cm/s ED R ECA: 56.8cm/s PS / 0cm/s ED R ICA Prox: 48.8cm/s PS / 12.8cm/s ED R ICA Mid: 69.2cm/s PS / 17.9cm/s ED R ICA Distal: 85.9cm/s PS /26.4cm/s ED R Vert: 45.4cm/s PS / 6.2cm/s ED R SVR: 1.3 R DVR: 1.5 L Bulb: 73.2cm/s PS / 13.8cm/s ED L CCA: 88.4cm/s PS / 18.8cm/s ED L ECA: 77cm/s PS / 3.7cm/s ED L ICA Prox: 83.3cm/s PS / 17.6cm/s ED L ICA Mid: 127.6cm/s PS / 38.3cm/s ED L ICA Distal: 134.2cm/s PS / 38.3cm/s ED L Vert: 40.3cm/s PS / 7.5cm/s ED L SVR: 1.5 L DVR: 2 IMPRESSION: No evidence for hemodynamically significant carotid stenosis. Criteria for Carotid Stenosis: Normal: ICA PSV <125 cm/s no plaque or intimal thickening is visible. <50% stenosis: ICA PSV <125 cm/s and plaque or intimal thickening is visible. 50-69% stenosis: ICA PSV is 125-250 cm/s and plaque is visible. >70% stenosis to near occlusion: ICA PSV >250 cm/s with visible plaque and luminal narrowing. DATA REPOSITORY:
== END ==
PROVIDERS: PCP Family Medicine; Visit Provider Family Medicine
DX: H53.9 Unspecified visual disturbance (principal)
CPT/HCPCS: 93880

== ENCOUNTER 2023-01-03 03:25 | Outpatient (CLI) | payer MEDICARE, OTHER, SELFPAY ==
[2023-01-03 12:26] LABS: ESR 3 mm/hr (0-30); HCT 39.5 % (36.0-46.0); HGB 13.5 g/dL (11.2-15.7); MCHC 34.2 % (32.0-36.0); MCV 91 fL (80-95); MPV 10.3 fL (8.0-11.0); Platelet Count 228 10^3/uL (130-400); RBC 4.36 10^6/uL (3.93-5.22); RDW 12.8 % (11.7-14.6); RDW-SD 42.4 fL; WBC 7.29 10^3/uL (4.4-10.8)
[2023-01-03 13:11] LABS: ALT 21 U/L (14-59); AST 21 U/L (15-37); Albumin 3.5 g/dL (3.4-5.0); Alkaline Phosphatase 90 U/L (46-116); Anion Gap 8.6 mmol/L (3-11); BUN 21 mg/dL (7-18); Bilirubin, Total 0.4 mg/dL (0.2-1.0); CO2 27.4 mmol/L (21.0-32.0); CREATININE 0.9 mg/dL (0.55-1.02); Calcium 9.4 mg/dL (8.5-10.1); Calculated LDL 141 mg/dL (<100); Chloride 105 mmol/L (98-107); Cholesterol 217 mg/dL (<200); Estimated GFR 65.03 (mL/min/1.73m2); Glucose 88 mg/dL (74-106); HDL Cholesterol 64 mg/dL (40-60); Potassium 3.9 mmol/L (3.5-5.1); Sodium 141 mmol/L (136-145); Triglyceride 63 mg/dL (<150)
[2023-01-03 13:16] LABS: C-Reactive Protein < 0.05 mg/dL (0.0-0.3)
== END 2023-01-03 03:26 | disposition home or self-care (01) ==
LOC: LOS 03:26
PROVIDERS: PCP Family Medicine; Visit Provider Family Medicine
DX: H53.9 Unspecified visual disturbance (principal); R20.0 Anesthesia of skin; I10 Essential (primary) hypertension
CPT/HCPCS: 36415; 80053; 80061; 85027; 85652; 86140

== ENCOUNTER → 2023-01-09 01:02 | Outpatient (CLI) | payer MEDICARE, OTHER, SELFPAY ==
--- NOTE | 2023-01-09 08:33 | DI.CT_ITS ---
Exam(s) CT BRAIN NECK CTA EXAM: CT BRAIN NECK CTA CLINICAL HISTORY: numbness of face.thrombus in eye,VISION CHANGES,H53.9,I82.90,R20.0. TECHNIQUE: Imaging Protocol: Axial CT angiography was performed with multi-slice acquisition and mu lti-planar and/or 3D reconstructions. CONTRAST MATERIAL: Intravenous: Omnipaque 350 Contrast volume:structured data in ml COMPARISON: CT CT ABDOMEN PELVIS W from 05/04/2021 US US CAROTID from 12/29/2022 FINDINGS: CTA Neck W: Aortic arch anatomy: The aortic arch anatomy is conventional and there is no significant stenosis at the origin of the great vessels off of the aortic arch. No intimal flap evident. Anterior circulation: Both common carotid arteries ascend with normal luminal diameters. At the level the carotid bulbs and proximal internal carotid arteries there is minimal plaque without hemodynamically significant stenosis evident. Above this level the internal carotid arteries are patent in both sides of the upper neck. Posterior circulation: Both vertebral arteries originate in conventional fashion off of the subclavian arteries and there is no obvious stenosis at the origin of the vertebral arteries. Both vertebral arteries exhibit normal luminal diameters within the foramen transversarium. Right vertebral artery is dominant. Both vertebral arteries contribute to the formation of the basilar artery at the skull base. CTA Brain W: Anterior circulation: Both internal carotid arteries are patent in the skull base-carotid canals as well as within the cave rnous sinuses. There is contrast seen in the ophthalmic arteries which appear to originate in conven tional fashion off the intra cavernous internal carotid arteries. The supraclinoid aspects of the ICAs are patent. Both A1 segments are patent as are the anterior cer ebral arteries and there is no evidence of aneurysm at the level of the anterior communicating artery . Both middle cerebral arteries are patent with no evidence of significant stenosis nor intraluminal th rombus. There also no aneurysms of these vessels. Posterior circulation: The basilar artery ascends in the midline. Distally it gives off patent bilateral superior cerebella r arteries. Above this level the basilar artery terminates as patent left posterior cerebral artery. The right p osterior cerebral artery is fed by posterior communicating artery on the right side of the rampart-of- Zepeda. There is no evidence of aneurysm at the tip of the basilar artery nor elsewhere in the lgomfl-rd-Erkg is. CT BRAIN: There is no evidence of intracranial hemorrhage, mass effect, or shift of midline structures. There are no extra-axial fluid collections. Ventricles are not enlarged or shifted. There are no ring enh ancing lesions in the brain and no abnormal meningeal enhancement. Incidental: Thyroid nodules noted. Can be further studied with ultrasound. IMPRESSION: 1. Patent carotid arteries in the neck. No hemodynamically significant stenosis. 2. Patent vertebral arteries. 3. Patent intracranial arteries. 4. No ring enhancing lesions in the brain and is no abnormal meningeal enhancement. RADIATION DOSE DELIVERED: 1,788.89mGy.cm Total DLP DATA REPOSITORY: All CT scans at this facility are submitted to the National Radiology Data Registry (NRDR) Dose Index Registry (DIR) with the [employer] (ACR). RADIATION OPTIMIZATION: All CT scans at this facility use at least one of these dose optimization te chniques: automated exposure control; mA and/or kV adjustment per patient size (includes targeted exa ms where dose is matched to clinical indication); or iterative reconstruction.
--- NOTE | 2023-01-09 14:53 | DI.RAD_ITS ---
Exam(s) XR CERVICAL SPINE COMP 4-5V EXAM: XR CERVICAL SPINE COMP 4-5V CLINICAL HISTORY: neck numbness,NECK PAIN, M54.2. TECHNIQUE: 2D digital imaging was performed. COMPARISON: No exams were available for comparison FINDINGS: Five views: No evidence of fracture nor significant offset of the spinal laminar line. There is multilevel disc space narrowing at most prominent at C5-6. There is degenerative anterolisthesis C4 upon C5 by appro ximately 4 mm. This related to advanced facet arthropathy at this level. On the oblique views there are Luschka joint osteophytes noted at C5-6 level. There are no cervical ribs. IMPRESSION: Multilevel chronic degenerative disc disease and spondylitic changes. DATA REPOSITORY: RADIATION DOSE DELIVERED:
== END ==
PROVIDERS: PCP Family Medicine; Visit Provider Family Medicine
DX: M50.022 Cervical disc disorder at C5-C6 level with myelopathy; I65.23 Occlusion and stenosis of bilateral carotid arteries
CPT/HCPCS: 70496; 70498; 72050

== ENCOUNTER → 2023-01-27 03:02 | Outpatient (CLI) | payer MEDICARE, OTHER, SELFPAY ==
--- NOTE | 2023-01-27 07:00 | DI.MRI_ITS ---
Exam(s) MR IAC BRAIN WO/W EXAM: MR IAC BRAIN WO/W CLINICAL HISTORY: Asymmetrical sensorineural hearing loss,h90.3. TECHNIQUE: Multiplanar multisequence MRI of the brain and internal auditory canals was performed. CONTRAST MATERIAL: IV Contrast: 13 mL of Magnevist contrast administered. COMPARISON: CT CT BRAIN NECK CTA from 01/09/2023 FINDINGS: VENTRICLES AND EXTRA AXIAL SPACES: Normal in size and morphology for the patient's age. HEMORRHAGE: None. CEREBRAL PARENCHYMA: No focus of restricted diffusion to suggest acute infarct. No space-occupying le mat identified. Mild atrophy, consistent with the patient's age. High signal lesions in the white matter consistent with sequela chronic microvascular ischemia. MIDLINE SHIFT: None. BRAINSTEM/CEREBELLUM: High sella signal consistent with microvascular changes. CALVARIUM: Normal. ENHANCEMENT: No suspicious enhancement identified. VISUALIZED PARANASAL SINUSES/MASTOIDS: Clear. ORBITS: Unremarkable. IAC/CP ANGLE: The internal auditory canals are within normal limits. The cerebellar pontine angles ar e unremarkable. No enhancing lesions are seen. Visualized portions of the cranial nerves appear withi n normal limits. IMPRESSION: Atrophy white matter changes small vessel disease. No evidence of acoustic neuroma or other CP angle abnormality. DATA REPOSITORY:
[2023-01-27] MEDS: Gadoterate meglumine 20 ML SYRINGE IVP (09:46)
[2023-01-27] MEDS: Normal Saline Flush 10 ML SYR IVP (09:47)
== END ==
PROVIDERS: PCP Family Medicine; Visit Provider Registered Nurse Maternal Newborn
DX: H90.3 Sensorineural hearing loss, bilateral (principal)
CPT/HCPCS: 70553

== ENCOUNTER 2023-02-15 05:22 | Outpatient (CLI) | payer MEDICARE, OTHER, SELFPAY ==
[2023-02-15 13:05] LABS: Hemoglobin A1C 5.4 % (<5.7)
[2023-02-15 13:08] LABS: TSH (W/Ref FT4) 2.14 uIU/mL (0.36-3.74)
== END 2023-02-15 05:23 | disposition home or self-care (01) ==
LOC: LOS 05:25
PROVIDERS: PCP Family Medicine; Visit Provider Family Medicine
DX: E03.9 Hypothyroidism, unspecified (principal); E11.9 Type 2 diabetes mellitus without complications
CPT/HCPCS: 36415; 83036; 84443

== ENCOUNTER → 2023-03-07 02:11 | Outpatient (CLI) | payer MEDICARE, OTHER, SELFPAY ==
--- NOTE | 2023-03-07 07:15 | DI.RAD_ITS ---
Exam(s) XR FOOT RT COMPLETE EXAM: XR FOOT RT COMPLETE CLINICAL HISTORY: Right foot pain,M79.671. TECHNIQUE: 2D digital imaging was performed of the right foot. Three images were obtained. AP, obl ique and lateral views were obtained. COMPARISON: No exams were available for comparison FINDINGS: BONES: No acute fracture is present. No bony destructive lesion is seen. There is a hallux valgus def ormity. JOINTS: No dislocation present. There is mild narrowing of the 1st metatarsophalangeal joint. The fausto int spaces are otherwise well maintained. SOFT TISSUE: Normal. IMPRESSION: Hallux valgus deformity. DATA REPOSITORY: RADIATION DOSE DELIVERED:
== END ==
PROVIDERS: PCP Family Medicine; Visit Provider Podiatrist
DX: M79.671 Pain in right foot (principal); M20.11 Hallux valgus (acquired), right foot
CPT/HCPCS: 20600; 73630

== ENCOUNTER 2023-03-16 12:31 | Outpatient (CLI) | payer MEDICARE, OTHER, SELFPAY ==
--- NOTE | 2023-03-16 06:00 | DI.RAD_ITS ---
Exam(s) XR PAIN CLINIC LUMBAR SP 2V EXAM: XR PAIN CLINIC LUMBAR SP 2V CLINICAL HISTORY: Dx: Lumbar Spondylosis TECHNIQUE: 2D and realtime digital imaging was performed. Radiologist not present. CONTRAST MATERIAL: None. COMPARISON: No exams were available for comparison FINDINGS: Fluoroscopy was provided for pain management therapy. Please refer to procedure report or details. Radiation Exposure Index: Ka,r=13.07 mGy IMPRESSION: As above. RADIATION DOSE DELIVERED:
[2023-03-16 12:48] VITALS: BP 124/76; PULSE 83; RESP 20; TEMP 36.2; O2SAT 94
[2023-03-16 13:39] VITALS: BP 127/71; PULSE 72; RESP 13; O2SAT 96
[2023-03-16] MEDS: Bupivacaine 0.5% Pres-Free 10 ML VIAL IJ (13:42)
[2023-03-16] MEDS: Omnipaque 240 MG/ML 50 ML BTL IJ (13:42)
--- NOTE | 2023-03-22 10:46 | PDOC.PAIN_ITS ---
Date of service: 03/16/23 Time of Service: 12:12 Pain Managment Procedure Note Procedure Note Procedure Note: PROCEDURE NOTE Bilateral Lumbar Medial Branch Blocks Date of Service: March 16, 2023 Patient: Julissa Etienne Provider: Monika Frye DO, MPH Julissa Cyn Etienne has been referred to the [facility] for lumbar medial branch blocks. Pre-operative diagnosis: Lumbar Spondylosis without Myelopathy Post-operative diagnosis: Same Pre-procedure pain: VAS= 7/10 COMMENTS: She previously have bilateral L3-L5 RFA and had >2 years of relief. Her exact pain has returned. I previously evaluated her in the office. Eliazar was interviewed and the medical records were reviewed. There were no medical, pharmacologic, radiographic or other structural contraindications to attempting fluoroscopically guided local anesthetic lumbar medial branch blocks. Risks and potential side effects were discussed. I also discussed the potential benefit(s) of the procedure with Julissa, and voiced concerns were addressed. After Julissa was completely informed about the procedure, the printed consent form was signed. A standard time-out procedure was performed. Julissa was placed in the prone position on the fluoroscopy table. Automated blood pressure cuff and pulse oximeter were applied. The skin entry points for approaching the anatomic target points of the segmental medial branches of bilateral L3,L4,L5 were identified with fluoroscopy and marked. The skin at the target site area was thoroughly prepared with Chlorhexadine. The skin was then draped. Next, a 25 gauge 3.5 spinal needle was placed under fluoroscopic guidance down on to the target point (the articular pillar) for each respective segmental medial branch. Position was confirmed in A/P and lateral views. Aspiration revealed no blood or clear fluid. Next, 0.25ml of omnipaque 240 was injected at each level. No contrast following a vascular or neural pattern was visualized under continuous fluoroscopy. Next, 0.25 ml of preservative-free 0.5% bupivicaine was injected at each level. There was no unusual discomfort expressed by Julissa. The needles were withdrawn without difficulty. (49 mls of Omnipaque was wasted) Julissa was observed and was without hemodynamic, neurologic, or allergic reactions.? Fluoroscopic images were digitally archived. Provacative testing using the Modified Thorpe's facet loading test- Left side Right Side Directly before the block VAS (0-10) = 7/10 VAS (0-10) = 7/10 Five minutes after the block VAS (0-10) = 1/10 VAS (0-10) = 1/10 Percentage relief obtained with this diagnostic block 80% 80% Any improved physical functioning directly after the blocks? Able to move her back much more easily. Follow up plans and appointments were discussed with Julissa. Julissa was instructed to keep careful note of how the usual pain was modified by these injections. Specifically, to keep a pain diary for the next 4 hours using a numeric pain scale of 0-10 and report these results. Post procedure instruction was given as documented in the nursing documentation and having met discharge criteria, the patient was [facility]. Based on the medial branches blocked today, if they patient has adequate relief and we are able to proceed to radiofrequency ablation, the treatment should result in the denervation of the bilateral L4-L5 and L5-S1 facet joints. We would expect to denervate a total of 4 facets during the radiofrequency ablatio n. COMMENTS: No apparent complications. Post-procedure pain: VAS= 1/10 Julissa will call back with 0-4 hour post-procedure pain scores. I personally performed the entire procedure. MONIKA FRYE DO, MPH ABPM&R-subspecialty board certification in Pain Medicine [facility] [facility]
== END 2023-03-16 12:32 | disposition home or self-care (01) ==
LOC: PC 12:31
PROVIDERS: PCP Family Medicine; Visit Provider Preventive Medicine Occupational Medicine
DX: M54.50 Low back pain, unspecified (principal); M47.816 Spondylosis without myelopathy or radiculopathy, lumbar region
CPT/HCPCS: 00123; 64493; 64494; 72100; Q9967

== ENCOUNTER → 2023-05-15 10:36 | Outpatient (BNVA) | payer MEDICARE, OTHER, SELFPAY | PROVIDERS: PCP Family Medicine; Referring Provider Family Medicine; Visit Provider Podiatrist | DX: M20.21 Hallux rigidus, right foot; M21.611 Bunion of right foot; M79.671 Pain in right foot; M85.9 Disorder of bone density and structure, unspecified; M19.071 Primary osteoarthritis, right ankle and foot | CPT/HCPCS: 20600; J0702 ==

== ENCOUNTER 2023-06-14 13:33 | Outpatient (CLI) | payer MEDICARE, OTHER, SELFPAY ==
[2023-06-14 13:58] VITALS: BP 152/70; PULSE 72; RESP 20; O2SAT 98
[2023-06-14 15:15] VITALS: BP 151/77; PULSE 61; RESP 13; O2SAT 95
--- NOTE | 2023-06-14 15:15 | DI.RAD_ITS ---
Exam(s) XR PAIN CLINIC LUMBAR SP 2V EXAM: XR PAIN CLINIC LUMBAR SP 2V CLINICAL HISTORY: Dx: Lumbar Spondylosis TECHNIQUE: 2D and realtime digital imaging was performed. CONTRAST MATERIAL: Refer to procedure report. COMPARISON: No exams were available for comparison FINDINGS: Fluoroscopy was provided for Dr. Frye during the performance of a bilateral radiofrequency ablation. Please refer to the procedure report for complete details. Ka,r=18.2 mGy IMPRESSION: RADIATION DOSE DELIVERED: 0.0 0.0 0
[2023-06-14] MEDS: Midazolam 2 MG/2 ML VIAL IVP (15:26)
[2023-06-14] MEDS: Nerve Block Tray 1 EACH MC (15:26)
[2023-06-14] MEDS: fentaNYL 100 MCG/2 ML VIAL IVP (15:27)
[2023-06-14] MEDS: methylPREDNISolone ACETATE 40 MG/ML VIAL IJ (15:28)
--- NOTE | 2023-06-14 15:44 | PDOC.PAIN_ITS ---
Date of service: 06/14/23 Time of Service: 15:45 Pain Managment Procedure Note Procedure Note Procedure Note: PROCEDURE NOTE BILATERAL LUMBAR RADIOFREQUENCY ABLATION Date of Service: June 14, 2023 Patient:? Julissa Etienne? Provider:? Glenn Frye DO, MPH Julissa Etienne [facility] Bilateral Lumbar Radiofrequency Ablation with the Avanos Machine.? Pre Operative Diagnosis: Lumbosacral Spondylosis without Myelopathy Post Operative Diagnosis: Same Pre procedure pain; VAS= 7/10 Comments: She did well with the LMBBs PROCEDURE: Radiofrequency Ablation of medial branches - bilateral L3, L4, L5 and lateral branches of bilateral S1. Julissa?was interviewed and the medical record was reviewed.? There were no medical, pharmacologic, radiographic or other structural contraindications to attempting fluoroscopically guided BILATERAL Lumbar Radiofrequency Ablation.?Risks and expected side effects as well as potential benefit of the procedure were reviewed with Julissa, and the patient's voiced concerns were addressed.? The printed consent form was signed.? Standard time-out procedure was performed. Julissa was brought into the fluoroscopy suite and positioned into the prone position on the fluoroscopy table and allowed to adjust to a position of comfort. A grounding pad was placed on the left abdomen. The sterile field was prepared using chlorhexidine preparation of the skin and sterile draping. Local anesthesia superficial and deep was provided by local infiltration of 2% lid ocaine. A 17g 100 mm radiofrequency introducer needle was placed to the planned anatomic targets guided with intermittent fluoroscopy with a perpendicular approach to terminally place at the junction of the superior articular process and the transverse process of the bilateral L4, L5, the base of the sacral ala on the bilateral for the L5 medial branch nerve and the area between base of the sacral ala to the S1 foramen bilaterally. The stylets were removed and radiofrequency probes with a 4mm active tip were then inserted. Needle tip position of the probes was verified in the AP, oblique, and lateral views. At each site, the medial branch nerve was stimulated at 2 Hz to a maximum 1-2 volts determined to finalize safe needle and electrode placement. The patient was awake and responsive during this portion of the procedure. Each target was anesthetized with 1-2 mL of 2 % Lidocaine for anesthesia for lesioning and then each target was lesioned at 80 degrees Celsius for 2 minutes and 30 seconds. Tissue impedances were noted to be between 250 and 500 Ohms. There was no unusual discomfort expressed by Julissa. The needles were withdrawn without difficulty and bandages placed over the needle placement sites, the patient was observed and was without hemodynamic, neurologic, or allergic reactions. Fluoroscopic images were digitally archived. POST PROCEDURE EVALUATION: IMPRESSION: 1. Summary of procedure. Medication given is documented in the MAR. 2. Follow up plan: Julissa to contact [facility] needed.?This procedure may be repeated if the patient achieves at least 50% improvement in pain/function for at least 6 months. 3. Estimated Blood Loss: <5 mls 4. Fluoroscopy time: Documented in the EMR. Follow up plans and appointments were discussed with the Julissa. Post procedure instruction was given as documented in nursing documentation and having met discharge criteria, Julissa was discharged from the [facility]. COMMENTS: No apparent complications. Post-procedure pain: VAS= 1/10. I personally completed the entire procedure. GLENN FRYE DO, MPH ABPM&R - Subspecialty board certification in Pain Medicine [facility] [facility]
[2023-06-14] MEDS: Lactated Ringers 500 ML 40 ML IV (16:00)
[2023-06-14] MEDS: Lidocaine 2% Pres-Free 5 ML VIAL IJ (16:06)
[2023-06-14] MEDS: Bupivacaine 0.5% Pres-Free 10 ML VIAL IJ (16:06)
== END 2023-06-14 13:34 | disposition home or self-care (01) ==
PROVIDERS: PCP Family Medicine; Visit Provider Preventive Medicine Occupational Medicine
DX: M54.50 Low back pain, unspecified (principal); M47.817 Spondylosis without myelopathy or radiculopathy, lumbosacral region
CPT/HCPCS: 123; 64635; 64636; 72100; 00123; J0665; J1030; J2250; J3010

== ENCOUNTER → 2023-07-31 04:25 | Outpatient (CLI) | payer MEDICARE, OTHER, SELFPAY ==
--- NOTE | 2023-07-31 10:00 | DI.RAD_ITS ---
Exam(s) XR HIP RT COMPLETE AP PELVIS EXAM: XR HIP RT COMPLETE AP PELVIS CLINICAL HISTORY: rt pelvic pain,greater trochanter pain syndrome,m25.551,m25.559. TECHNIQUE: 2D digital imaging was performed of the right hip. Three images were obtained. AP pelvis and lateral right hip views were obtained. COMPARISON: CR XR HIP RT COMPLETE AP PELVIS from 08/09/2022 FINDINGS: BONES: No acute fracture is present. No bony destructive lesion is seen. JOINTS: No dislocation present. The patient has a left total hip replacement which is incompletely im aged. There are degenerative changes seen at L4-5 and L5-S1. There is mild narrowing of the right h ip joint space. Mild degenerative changes are seen at the sacroiliac joints. The symphysis pubis is intact. SOFT TISSUE: There is a moderate amount of stool in the colon. IMPRESSION: Mild degenerative changes seen in the right hip. DATA REPOSITORY: RADIATION DOSE DELIVERED:
--- NOTE | 2023-07-31 10:50 | DI.RAD_ITS ---
Exam(s) RF BARIUM SWALLOW EXAM: RF BARIUM SWALLOW CLINICAL HISTORY: dysphagia,r13.10 TECHNIQUE: 2D and realtime digital imaging was performed. CONTRAST MATERIAL: Oral barium contrast was administered. COMPARISON: CR XR CHEST 2V PA LATERAL from 06/16/2020 FINDINGS: CHEST X-RAY: The heart and pulmonary vasculature are within normal limits. The lungs are clear. No pl eural effusion or pneumothorax is present. The bones are within normal limits for the patient's age. There again seen postsurgical changes of a right total reverse shoulder replacement. ESOPHAGRAM: The esophagus is patent with no evidence for erosions, fold thickening, strictures, or ma sses. Tertiary contractions are seen in the esophagus. There is no hiatal hernia or gastroesophagea l reflux. The patient did experience difficulty in the oral phase of swallowing. Transferring the remi ilda to the back of the mouth was done with some difficulty. IMPRESSION: Apparent difficulty in the oral phase of swallowing. A modified barium swallow is recommended. This can be performed in conjunction with speech therapy. Unexpected findings RADIATION DOSE DELIVERED: teto Greenberg=18.2 mGy
[2023-07-31] MEDS: Barium Sulfate 98% W/W 140 ML BTL PO (10:54)
[2023-07-31] MEDS: Barium Sulfate 60% W/V 355 ML BTL PO (10:55)
== END ==
PROVIDERS: PCP Family Medicine; Visit Provider Family Medicine
DX: R13.10 Dysphagia, unspecified (principal); M16.11 Unilateral primary osteoarthritis, right hip
CPT/HCPCS: 36415; 73502; 74221; 82607; 83036; 84443; J3490

== ENCOUNTER 2023-07-31 06:01 | Outpatient (CLI) | payer MEDICARE, OTHER, SELFPAY ==
[2023-07-31 11:38] LABS: Hemoglobin A1C 5.7 % (<5.7)
[2023-07-31 12:38] LABS: TSH (W/Ref FT4) 2.33 uIU/mL (0.36-3.74); Vitamin B12 436 pg/mL (193-986)
== END 2023-07-31 06:02 | disposition home or self-care (01) ==
LOC: LBO 06:02
PROVIDERS: PCP Family Medicine; Visit Provider Family Medicine
DX: E03.9 Hypothyroidism, unspecified (principal); G62.9 Polyneuropathy, unspecified; E11.9 Type 2 diabetes mellitus without complications
CPT/HCPCS: 36415; 82607; 83036; 84443

== ENCOUNTER → 2023-08-03 01:11 | Outpatient (CLI) | payer MEDICARE, OTHER, SELFPAY ==
--- NOTE | 2023-08-03 07:30 | DI.NM_ITS ---
APPROVED REPORT Exam: Pharmacologic Patient Location: Out-Patient Room/Bed: Stress Nurse: Azul Leija RN Ordering Provider:ALVARADO GELA, Contact Number: [phone] BMI: 27.06 Baseline Rhythm: Sinus Bradycardia Comment: None Indications: Chest pain, Medical History Medical History: Chest pain, HTN, Depression, GERD Cardiac Medications: Atorvastatin, losartan, pantoprazole, mirtazapine Allergies: Oxycodone Cardiac Risk Factors: Family hx Previous Cardiac Procedures: None Pretest Chest Pain Characteristics: None Exercise History: Indeterminate Physical Disabilities: Generalized weakness Lung Sounds: Clear to auscultation Heart Sounds: Regular Stress Test Details Test: Pharmacologic stress was paired with low level exercise. Reason for pharmacologic stress test: physical limitation. Nuclear Acquisition: Rest Tc-99m/Stress Tc-99m 1 day Rest Isotope: Tc-99m Sestamibi. Dose: 10.0 Date: 08/03/2023 Injection Time: 0850 Stress Isotope: Tc-99m Sestamibi. Dose: 31.0 Date: 08/03/2023 Injection Time: 1010 HR Resting HR Supine: 56 bpm Max Heart Rate (APMHR): 140.311105 bpm Resting HR Standin bpm Target HR (85% APMHR): 119.723816 bpm Max HR Achieved: 129 bpm % of APMHR: 92.14 Recovery HR: 85 bpm HR response to stress: Normal HR response to stress BP Resting BP Supine: 130/62 mmHg Resting BP Standin/82 mmHg Max BP: 172/58 mmHg Recovery BP: 158/60 mmHg BP response to stress: Normal blood pressure response to stress. ECG Resting ECG: Sinus Bradycardia Ectopy: None Stress ECG: Sinus Tachycardia ST Change: No significant ST segment changes noted Arrhythmia: None Recovery ECG: Sinus Rhythm Recovery ST Change: No significant ST segment changes noted Recovery Arrhythmia: None Clinical Reason for Termination: Target HR Achieved, Fatigue Stress Symptoms: Chest pain, General Fatigue Exercise duration: 03 min45 sec Exercise capacity: 1.61 METs Angina Score: Non-Limiting Croft Treadmill Score: -0.4 Rate Pressure Product: 24818 Stress ECG Conclusion 1. Resting EKG was normal 2. Patient underwent testing using low level exercise and pharmacologic stress wtih regadenason 3. Peak heart rate was 92 % of predicted for age 4. There was no electrocardiographic evidence of myocardial ischemia 5. See MPI report Croft Treadmill Score is -0.4 which is Moderate risk. Stress Test Summary STAGE HR BP SpO2 Symptoms NOTES Supine 56 130/62 Standing 63 162/82 1 min post Lexiscan injection 121 160/62 96 5/10 chest pain 3 min post Lexiscan injection 92 172/58 98 3/10 chest pain 6 min post Lexiscan injection 86 164/64 9 min post Lexiscan injection 85 152/60 Chest pain resolved MPI Conclusion Myocardial perfusion is normal . There is no ischemia or evidence of prior infarction EF is 85%. Wall motion is normal Radiologist Interpretation Radiologist agrees with Delivery Associate's Interpretation. Radiologist Interpretation by: Haley Swartz MD Interpretation Date/Time: 08/04/2023 15:24:20
[2023-08-03] MEDS: Regadenoson 0.4 MG/5 ML SYR IVP (10:59)
== END ==
PROVIDERS: PCP Family Medicine; Visit Provider Family Medicine
DX: R07.9 Chest pain, unspecified (principal)
CPT/HCPCS: 78452; 93016; 93018; 93017; J2785

== ENCOUNTER → 2023-09-18 03:01 | Outpatient (CLI) | payer MEDICARE, OTHER, SELFPAY ==
--- NOTE | 2023-09-18 09:54 | DI.RAD_ITS ---
Exam(s) RF MODIFIED SPEECH BA SWALLOW TECHNIQUE: Modified barium swallow was performed in conjunction with speech pathology. CONTRAST MATERIAL: Oral barium contrast was administered. COMPARISON: CR,RF RF BARIUM SWALLOW from 07/31/2023 FINDINGS: Note that this is not a dedicated esophagram, distal esophagus not evaluated. There is no evidence of aspiration or penetration of thick or thin liquids, barium coated cookie or b arium paste. Speech pathology report to follow. There was difficulty during the oral phase of swallo wing again noted. IMPRESSION: 1. Difficulty with oral phase of swallowing is again noted. 2. No evidence of aspiration or penetration. RADIATION DOSE DELIVERED: teto Greenberg=7.04 mGy
[2023-09-18] MEDS: Barium Sulfate 81% w/w for Oral Suspension 148 GM BTL PO (09:59)
[2023-09-18] MEDS: Barium Sulfate 40% W/V 240 ML BTL PO (10:00)
[2023-09-18] MEDS: Barium Sulfate Oral Paste 40% W/V 230 ML TUBE PO (10:01)
--- NOTE | 2023-09-18 13:17 | ST.MBS ---
Date of Service Date of service: 09/18/23 Time of Service: 09:00 Modified Barium Swallow Study Findings: Video fluoroscopic Swallowing Evaluation (VFSE) / Modified Barium Swallow Study (MBSS) Speech Language Pathology Report Patient referred for VFSE/MBSS from Dr. Mellissa Garnett given dysphagia. HPI & Patient report of function: Patient is a 78 year old female with history of dysphagia. She presents with complaints of food sticking in throat, hoarseness, reflux/heartburn, and constant globus sensation. Symptoms have been ongoing for several years, though she feels symptoms have been progressively worsening. She was seen for a non-instrumental swallow eval withh this clinician on 08/10/23 and MBSS was recommended. Pertinent PMHx: Zwerx-6-hjdxmhaxkeq deficiency Colon polyp, hyperplastic (~10/2022) Chronic GERD (on Pantoprazole, elevated HOB with bricks since last visit) Constipation Previous Imagin07/31/23: Barium swallow: The esophagus is patent with no evidence for erosions, fold thickening, strictures, or masses. Tertiary contractions are seen in the esophagus. There is no hiatal hernia or gastroesophageal reflux. The patient did experience difficulty in the oral phase of swallowing. Transferring the bolus to the back of the mouth was done with some difficulty. 05/21/21 Endoscopy & Colonoscopy: There is a small, 1 cm, sliding-type hiatal hernia noted. The proximal and mid-esophagus were normal limits. In the distal esophagus there was no esophageal erosions/varices/diverticula/stricture. Colonoscopy identified large polyp in cecum, s/p polypectomy. See alternate reports from Dr Arenas 06/10/08-06/12/08 Single Capsule Loza pH study placed after EGD - Report not available IMPRESSIONS: MBSS findings reveal oral pharyngeal swallow function is within functional limits for age/consistent with presbyphagia. There is no evidence of deep penetration, aspiration, or pharyngeal retention. Swallow safety and efficiency are preserved, and risk for aspiration pneumonia from prandial aspiration is considered low. See below for further breakdown of physiologic performance. Plan for 1 BULKHEAD CARPENTER follow up to review findings, reinforce standard swallowing precautions, and discuss recommended referrals. Specialist referrals:? Consider GI referral and/or chair spring assembler referral for ongoing symptoms. Anticipate Julissa's persistent symptoms are gastro-intestinal in nature. Consider repeat endoscopy, however last completed in May 2021, so may not be indicated. Working with a chair spring assembler may be helpful to understand possible impact of AAT deficiency on digestion, trial dietary shifts, and learn mindful eating practices. Will discuss further with patient at follow-up on 09/20. RECOMMENDATIONS: Diet Texture/IDDSI Level Recommendation:? SOLIDS 7-Regular Solids LIQUIDS? 0-Thin Liquids MEDICATIONS Whole with sips liquid Do not alter medications (e.g., cut)? without advice from your MD or pharmacist. Risk Management Strategies:? Small bites, approx [id number] Small sips, approx 10 mL Stay upright 90 degrees during meals and at least 1-2 hours after Elevate HOB in evening to avoid nocturnal reflux Do not eat within 2-3 hours of going to bed PLAN: Recommend 1 additional BULKHEAD CARPENTER follow up to review test findings, reinforce standard swallowing precautions, discuss recommended referral to chair spring assembler OBJECTIVE Videofluoroscopic Swallow Evaluation (VFSE/MBSS) was conducted in the lateral and hjpovqtt-fw-kazaoqwah projection by Speech-Language Pathologist, in collaboration with Radiologist, to evaluate oropharyngeal swallow function. Anatomic view under fluoroscopy: WFL PO Barium Contrast Trials Oral barium water-soluble contrast was administered as follows: IDDSI Level 0 Varibar thin liquid (40% w/v) IDDSI Level 2 Varibar nectar thick/mildly thick liquid (40% w/v) IDDSI Level 4 Varibar pudding/pureed/extremely thick (40% w/v) IDDSI Level 7 Regular Solid: 1/2 vincenzo cracker coated in 3 mL Varibar pudding MBSImP Component Scores: COMPONENT Scale SCORE 1 Lip closure (0-4) 0 Resulted in no labial escape 2 Hold Position (0-3) 0 Maintained a cohesive bolus between tongue to palatal seal 3 Bolus Preparation (0-4) 1 Resulted in slow prolonged chewing/mashing with complete re-collection 4 Bolus Transport (0-4) 2 Was with slowed tongue motion 5 Oral Residue (0-4) 0 Was not observed. There was complete oral clearance 6 Swallow Initiation (0-4) 1 Occurred when the bolus head was in valleculae 7 Soft Palate Elevation (0-4) 0 Resulted in no bolus between soft palate and the pharyngeal wall 8 Laryngeal Elevation (0-3) 0 Demonstrated complete superior movement of thyroid cartilage with complete approximation of arytenoids to epiglottic petiole 9 Anterior Hyoid Motion (0-2) 0 Demonstrated complete anterior movement 10 Epiglottic Movement (0-2) 0 Resulted in complete inversion 11 Laryngeal Closure (0-2) 0 Was complete with no air or contrast in laryngeal vestibule 12 Pharyngeal Stripping Wave (0-2) 0 Was present and complete 13 Pharyngeal Contraction (0-3) 0 Was complete 14 PES Opening (0-3) 0 Was completely distended and complete duration with no obstruction of flow 15 Tongue Base Retraction (0-4) 0 Allowed no contrast between the tongue base and posterior pharyngeal wall 16 Pharyngeal Residue (0-4) 0 Was not present. There was complete pharyngeal clearance 17 Esophageal Clearance (0-4) 0 Was complete, with only a coating of contrast, if any Results: COMPONENT Scale SCORE 1 Oral Score (0-18) 4 2 Pharyngeal Score (0-29) 0 3 Esophageal Score (0-4) 0 Functional Oral Intake Scale: COMPONENT Scale SCORE 1 Pre-Study (1-7) 7 Total oral intake with no restrictions 2 Post-Study (1-7) 7 Total oral intake with no restrictions Penetration-Aspiration Scale: COMPONENT Scale SCORE 1 Thin liquid (1-8) 2 Contrast entered the airway, remained above the vocal folds, and was ejected from the airway. 2 Kila thick (1-8) 1 Contrast did not enter the airway 3 Honey thick (1-8) NA 4 Pudding thick (1-8) 1 Contrast did not enter the airway 5 Cookie (1-8) 1 Contrast did not enter the airway Thank you for allowing us to take part in this patient's care. Please feel free to contact the [facility] Speech Language Pathology Department with any questions/concerns.
== END ==
PROVIDERS: PCP Family Medicine; Visit Provider Family Medicine
DX: R13.10 Dysphagia, unspecified (principal); R09.A2 Foreign body sensation, throat; R49.0 Dysphonia
CPT/HCPCS: 92526; 74221

== ENCOUNTER → 2023-09-20 03:40 | Outpatient (CLI) | payer MEDICARE, OTHER, SELFPAY ==
--- NOTE | 2023-09-20 08:00 | DI.RAD_ITS ---
Exam(s) XR FOOT RT COMPLETE EXAM: XR FOOT RT COMPLETE CLINICAL HISTORY: Right foot pain, hallux valgus acquired, M79.671, M20.11. TECHNIQUE: 2D digital imaging was performed of the right foot. Three images were obtained. AP, obl ique and lateral views were obtained. COMPARISON: CR XR FOOT RT COMPLETE from 03/07/2023 FINDINGS: BONES: No acute fracture is present. No bony destructive lesion is seen. There is a hallux valgus def ormity. JOINTS: No dislocation present. Degenerative changes are seen at the foot. There is mild narrowing o f the 1st MTP joint. SOFT TISSUE: Normal. IMPRESSION: No acute abnormality. DATA REPOSITORY: RADIATION DOSE DELIVERED:
== END ==
PROVIDERS: PCP Family Medicine; Visit Provider Podiatrist
DX: M79.671 Pain in right foot (principal)
CPT/HCPCS: 20600; 73630

== ENCOUNTER 2023-10-04 05:08 | Outpatient (CLI) | payer MEDICARE, OTHER, SELFPAY ==
--- NOTE | 2023-10-04 12:30 | W.NUTRFU ---
Date of service: 10/04/23 Time of Service: 10:30 Nutrition Note NOTE: Julissa was referred for nutrition appt for unspecified dysphagia. She had has EGD completed with no significant finding outside of normal aging and slight hiatal hernial. MBS completed by POWDER PRESS OPERATOR and Julissa to have follow-ups. Oral pharyngeal swallow function was assessed to be wnl for age. Julissa continues to eat routinely and denies any significant weight changes secondary to her swallowing concerns. She reports 11/01 having consult for endoscopy. She reports heavy amount of life stress and poor sleep resulting. Supported her in trying to manage stress best she can and reinforced education on stress/sleep and inflammation/GI issues. Asked her to work other management efforts that may help but told her today we would focus on reflux-friendly diet and eating practices. She avoids caffeine. Breakfast this morning was some bran flake cereal with milk and 1/2 a banana and diluted oj disucouraged oj even if diluted and a break from citrus in general - encouraged to get vitamin C through other sources like berries and other. Discouraged drinking with meals - suggested eating meals with moisture but avoiding drinking fluids with meals to decrease chance of reflux sx. Discouraged fatty/greasy foods, carbonated bevs, onion/garlic, tomato/pineapple and other acid food sources. Encouraged upright after earing and can prop head side of bed up if it helps. Stressed 30 yncwo-tbb-jsrexywb, eating without distraction and stopping eating when ~70% full - eat smaller meals and can consider some concentrated nutrition in smoothies she makes at home or OTC options she may tolerate well. suggested option of slippery elm tea (throat coat) if pain could be coming from post-nasal drip (per POWDER PRESS OPERATOR note) Gave pt supporting materials for reflux mgt through diet. She did take my card and will contact if desiring follow up Time Spent in Nutritional Counseling and Treatment: 35 min
== END 2023-10-04 05:09 | disposition home or self-care (01) ==
LOC: DS 05:08
PROVIDERS: PCP Family Medicine; Visit Provider Dietitian, Registered
DX: R13.10 Dysphagia, unspecified (principal); Z71.3 Dietary counseling and surveillance
CPT/HCPCS: 00123; 97802

== ENCOUNTER → 2023-10-18 12:53 | Outpatient (BNVA) | payer MEDICARE, OTHER, SELFPAY | PROVIDERS: PCP Family Medicine; Referring Provider Family Medicine; Visit Provider Podiatrist | DX: M20.21 Hallux rigidus, right foot (principal); M21.611 Bunion of right foot; M79.671 Pain in right foot; M85.9 Disorder of bone density and structure, unspecified; M19.071 Primary osteoarthritis, right ankle and foot | CPT/HCPCS: 99213 ==

== ENCOUNTER → 2023-11-02 09:55 | Outpatient (BNVA) | payer MEDICARE, OTHER, SELFPAY | PROVIDERS: PCP Family Medicine; Referring Provider Family Medicine; Visit Provider Surgery | DX: R13.10 Dysphagia, unspecified (principal) | CPT/HCPCS: 99214 ==

== ENCOUNTER 2023-11-17 08:10 | Day surgery (SDC) | payer MEDICARE, OTHER, SELFPAY ==
--- NOTE | 2023-11-16 17:08 | W.PM.ENDDOP ---
Date of service: 11/17/23 Time of Service: 08:53 Endoscopy Report DATE OF PROCEDURE: 11/17/23 PRE-OP DIAGNOSIS: Dysphagia/chronic hoarseness POST-OP DIAGNOSIS: same SURGEON: Nury Arenas ANESTHESIA TYPE: General:No Airway ESTIMATED BLOOD LOSS: 1 PATHOLOGY: other COMPLICATIONS: None DISPOSITION: same day PREP: Miralax/Dulcolax PROCEDURE DESCRIPTION: Informed consent was obtained from the pt; explaining the benefits and Risks: bleeding, infections, perforations {which could require surgery or antibiotics and prolonged hospital stay}, or ostomy, and complications of anaesthesia, sandra aspiration). The patient was take to the procedure room and placed in a supine position. Monitors were applied and a time out was done. The patients name, date of , procedure type, allergies to medications and metal in their body was reviewed. A bite block was placed and the patient was sedated. Once sedated and comfortable an Olympus gastroscope (see RN notes for scope #) was advanced through the oropharynx which was grossly normal, and passed into the esophagus. The proximal and mid-esophagus were normal. The distal esophagus does not show any: dilation/strictures/varices/erosions or ulcers/bleeding noted. The scope was advanced into the stomach and through the pylorus into the proximal jejunum. A bx is taken for celiac Dx . The duodenum was noted to be normal. Biopsies were done of the duodenal bulb.. The scope was retracted back into the stomach and biopsies were taken of the antrum. There were no gastritis/gastropathy/ ulcers/masses noted. She does have a few small scattered polyps throughout the stomach. These are most likely due to chronic PPI use. 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 The scope was retroflexed. The cardia and fundus were noted to be normal. There a hiatal hernia noted. The scope was retracted back into the esophagus and biopsies were done of the GE junction (in all 4 quadrants) and distal esophagus (2cm above the GE junction) to rule out Downey's. All specimens are retrieved and no bleeding was noted. The Z line was regular. The GE junction was at 38 cm. The scope was removed and the patient was woken up and taken back to [facility] in stable condition.
--- NOTE | 2023-11-16 17:09 | PDOC.DSDIS_ITS ---
Date of service: 11/17/23 Time of Service: 09:46 Discharge Plan Disposition Patient Disposition: Home Condition: Good Discharge Details Reason For Visit: Stomach scope Attending Provider: Nury Arenas Primary Care Provider: Mellissa Garnett Home Meds and New Rx's Prescriptions: New dexlansoprazole [Dexilant] 30 mg capsule,biphase delayed releas 30 mg PO DAILY Qty: 90 6RF Continued Systane Complete 0.6 % drops 1 drp OP TID PRN atorvastatin 10 mg tablet 10 mg PO DAILY Qty: 90 4RF mirtazapine 7.5 mg tablet 7.5 mg PO QHS Qty: 90 4RF paroxetine HCl 20 mg tablet 20 mg PO DAILY Qty: 90 4RF oxybutynin chloride 10 mg tablet extended release 24hr 10 mg PO DAILY Qty: 30 12RF nystatin 100,000 unit/gram powder 1 applic Topical BID PRNQty: 60 Rx Instructions: 1-3 GM BID acetaminophen 500 mg tablet 1,000 mg PO Q8H PRN (Reason: pain) Qty: 90 3RF Fortify Probiotic 50 billion cell-50 mg Capsule,Delayed Release(Dr/Ec) 1 cap PO DAILY multivitamin 1 EACH capsule 1 cap PO DAILY cholecalciferol (vitamin D3) [Vitamin D3] 1,000 UNIT capsule 1,000 unit PO DAILY Discontinued polyethylene glycol 3350 17 gram/dose powder 17 g PO ONCE Qty: 238 0RF Rx Instructions: Take per colonoscopy instructions provided by ordering providers office pantoprazole 40 mg tablet,delayed release (DR/EC) See Rx Instructions .ROUTE .COMPLEX Qty: 90 5RF Dose Instruction: TAKE ONE TABLET BY MOUTH EVERY DAY Rx Instructions: TAKE ONE TABLET BY MOUTH EVERY DAY Discharge Instructions Additional Instructions: Post EGD Instruction ?You had anesthesia for your EGD/stomach scope today.? For your safety, please do the following for the next twenty-four (24) hours: Do Not operate a motor vehicle (car, truck, motorcycle, etc.) Do Not drink alcoholic beverages or use any recreational drugs for the first 24 hours or while taking pain medications. The medications in your body may have a reaction that can be dangerous. Do Not make any important decisions or sign any important papers You have just had a gastroscopy (EGD) or upper GI tract examination. It is im portant for your smooth recovery that you carefully follow the recommendations below. Do not hesitate to call if any questions should arise about your anesthesia, condition, or care. -Symptoms you may experience during the next 24 hours: ?1. Mild abdominal pain or excessive gas or a bloated feeling which improves with rest, liquids, eating? slightly, and walking as tolerated. 2. Drowsiness and/or forgetfulness because of the medications you were given. 3. A sore throat which you can treat with throat lozenges or by gargling with salt water 4-5 times a day. 4. Redness at the site of your IV which you can treat with warm compresses. SPECIAL INSTRUCTIONS: 1. You may resume your previous diet in one hour. We recommend a light meal to start, then progress as tolerated. 2. Restart regular medications in one hour. 3. No aspirin or non-steroidal containing medication for 24 hrs. 4. No lifting over 20 pounds or strenuous activity for the first 24 hours after your procedure. After 24 hours there are no restrictions on your activity, but you may feel fatigued for a few days. -Findings: On gross visualization today looks relatively normal. We did take biopsies. I will send you a letter with the results of the biopsies in 2 to 3 weeks time -Medications: Will try switching medication to Dexilant. Consider referral to ENT/awaiting biopsy results. -Continue to follow lifestyle modifications: No alcohol, tobacco products, Aspirin or NSAID's (ibuprofen, Motrin, Naprosyn, aleve, etc).? Try to limit/avoid:? soda pop/any carbonated beverages, caffeine (including tea & chocolate), and acidic foods, (tomatoes, citrus, onions, peppermints) spicy or fried/fatty foods. Do not lie down for 30 minutes after eating, and do not eat 2 hours prior to bedtime. Avoid wearing tight fitting clothing/ belts. Follow up: -My office will send a letter with the results of your biopsy?s in 2-3wks time. Call the office at [phone] (Office) or [phone] (Hospital), or go to the ER right away if you notice any of the followin. Vomiting blood and /or ?coffee ground? material. ?2. Worsening of abdominal pain or cramping. ?3. Trouble with breathing, cough, and/or fever (temperature above 101.5 F). 4. Increasing pain with swallowing. ?5. Chest pain. 6. Any new symptoms. 7. Worsening of the redness at the IV site Stand Alone Forms: Anesthesia Discharge InstJesús Rosales (DSU) Activity:: See above Diet:: See above Discharge Orders Discharge Orders: Discharge Order (Routine); Ordered 11/17/23 Ordered By: Nury Arenas DS: Diagnosis Discharge Diagnosis (1) Essential hypertension: Status: Chronic (2) Dysphagia: Status: Acute Asessment and Plan: Patient is seen and examined after they are endoscopy.? Patient has minimal sore throat.? They have been able to tolerate liquids.? They do not have any nausea vomiting.? They are not having any chest pain or shortness of breath.? They have been able to pass gas and are not having any abdominal pain or distention.? They have not vomited any blood.? The vital signs have been stable-see nursing notes. We discussed findings on their endoscopy. We reviewed the importance of lifestyle modification-see discharge instructions We reviewed any new medications that the patient may be prescribed-see discharge instructions Patient will either be sent a letter with the biopsy results or follow-up in the office-see discharge instructions. Patient was given explicit instructions to follow-up regarding post endoscopy- refer to discharge Patient verbalized understanding and discharged in stable and satisfactory condition.? See nursing notes.
[2023-11-17 08:20] VITALS: BP 136/69; PULSE 72; RESP 16; TEMP 36.5; O2SAT 95
[2023-11-17] MEDS: Lactated Ringers 1,000 ML 80 ML IV (08:55)
--- NOTE | 2023-11-17 09:15 | ANES.PREOP_ITS ---
General Info Date of Service Date Performed: 11/17/23 Height: 5 ft 2.25 in Weight: 68.8 kg Body Mass Index (BMI): 27.5 Surgical Procedure: Operation Date: 11/17/23 09:05 Proposed Procedure Side Surgeon p Gastroscopy Nury Arenas, DO Actual Procedure Side Surgeon p Gastroscopy Not Applicable Nury Arenas, DO Pre-Op Diagnosis Post-Op Diagnosis dysphagia and esophagitis Meds Allergies and Home Medications Allergies Allergy/AdvReac Type Severity Reaction Status Date / Time oxycodone HCl (From Percocet) AdvReac hallucinati Verified 11/16/23 13:10 ons Home Medication ?Medication ?Instructions ?Recorded multivitamin 1 cap PO DAILY 07/14/17 cholecalciferol (vitamin D3) 25 1,000 unit PO DAILY 11/21/17 mcg (1,000 unit) capsule (Vitamin D3) nystatin 100,000 unit/gram topical 1 applic topical BID PRN #60 grams 06/19/18 powder acetaminophen 500 mg tablet 1,000 mg (2 x 500 mg) PO Q8H PRN 04/03/19 pain #90 tabs propylene glycol 0.6 % eye drops 1 drp ophthalmic (eye) TID PRN 06/08/20 (Systane Complete) polyethylene glycol 3350 17 17 g PO ONCE #238 grams 10/13/22 gram/dose oral powder Lacto-B.anim,bifid-inulin 50 1 cap PO DAILY 10/27/22 billion cell-50 mg capsule,delay release (Fortify Probiotic) atorvastatin 10 mg tablet 10 mg PO DAILY #90 tabs 02/09/23 mirtazapine 7.5 mg tablet 7.5 mg PO QHS #90 tabs 02/09/23 oxybutynin chloride 10 mg 10 mg PO DAILY #30 tabs 06/05/23 tablet,extended release 24 hr pantoprazole 40 mg tablet,delayed See Rx Instructions .Route 07/01/23 release .COMPLEX #90 tabs paroxetine HCl 20 mg tablet 20 mg PO DAILY #90 tabs 09/19/23 Current Visit Medications: Current Medications Generic Name Dose Route Start Last Admin Trade Name Freq PRN Reason Stop Dose Admin Hyoscyamine Sulfate 0.125 mg 11/17/23 04:27 Hyoscyamine 0.125 Mg Sl/Oral/Chew SL 12/17/23 04:26 DIRECTED PRN Ringer's Solution 1,000 mls @ 80 mls/hr 11/17/23 06:00 11/17/23 08:55 IV 12/16/23 23:59 80 mls/hr INFUSION LILY Administration IV Miscellaneous Supplies 1 each 11/17/23 06:00 Iv Access IV 12/16/23 23:59 DIRECTED LILY Ondansetron HCl 4 mg 11/17/23 04:27 Ondansetron 4 Mg/2 Ml Vial IVP 12/17/23 04:26 Q4H PRN PRN Nausea / Vomiting Sodium Chloride 0 ml 11/17/23 06:00 Normal Saline Flush 10 Ml Syr IV 12/16/23 23:59 PRN PRN Sodium Chloride 0 ml 11/17/23 06:00 Normal Saline 10 Ml Vial IJ 12/16/23 23:59 DIRECTED PRN Sterile Water 0 ml 11/17/23 06:00 Water,Injection,Sterile 10 Ml Vial IJ 12/16/23 23:59 DIRECTED PRN PFSH Active Problems Active Problems: Problem Status Onset Code Greater trochanteric pain syndrome Acute M25.559 Neuropathy Acute G62.9 Dysphagia Acute R13.10 Hallux rigidus of right foot Acute M20.21 Bunion, right foot Acute M21.611 Asymmetrical sensorineural hearing loss Acute H90.3 Pes anserinus bursitis of right knee Acute M70.51 Stenosis, spinal, lumbar Acute M48.061 Right hip pain Acute M25.551 Urinary incontinence Acute R32 Essential hypertension Chronic 02/12/13 I10 Depressive disorder Chronic F32.9 Serrated adenoma of colon Acute D12.6 Diverticulosis of colon without diverticulitis Chronic K57.30 DNR (do not resuscitate) Acute Z66 Medical History Medical History Numbness of face Lumbosacral spondylosis without myelopathy Decreased hearing Colon polyp, hyperplastic (~10/2022) Grief Pain, foot Nail dystrophy Tendinitis of ankle Ankle pain Elevated blood pressure reading Skin tag, acquired Right knee pain Dysplastic colon polyp cecum- low grade. Repeat CE October 2021 Adenomatous colon polyp cecum 06/08 Diverticula of colon Hiatal hernia Chronic GERD RLQ abdominal pain Trochanteric bursitis, right hip Injection: 03/05/2021 Bilateral thumb pain Right knee injury Constipation Stress at home Vertigo Wound cellulitis Epigastric abdominal pain Chest wall pain, chronic Myalgia Hematoma of eyelid Hypertension History of skin cancer Headache Primary osteoarthritis of left knee Granulomatous disorder of the skin and subcutaneous tissue, unspecified Postoperative examination Spinal stenosis Skin cancer, basal cell Malignant neoplasm of urinary bladder Abnormal weight loss (01/30/17) Anemia (12/26/11) Arthritis of left hip (08/02/16) Chronic cystitis Cough (08/14/12) Epicondylitis Gastritis Giardiasis Hematuria Herpes zoster Pt. states years ago Hypokalemia (12/26/11) Abdominal or pelvic swelling, mass, or lump, left lower quadrant (03/16/01) Short of breath on exertion (07/17/14) Sinusitis Upper airway resistance syndrome Vulvar pain (09/16/11) Zmwej-7-bmcepgrgnhe deficiency Shoulder pain Chronic maxillary sinusitis Right sided facial pain Vitamin D deficiency (12/28/11) Trigeminal neuralgia (09/17/14) Positive ASH (antinuclear antibody) (06/07/16) Osteopenia dexa 2003 showing T-scores -1.6, -0.7, 1.1 Peripheral neuropathy (09/21/15) Neck pain (05/31/16) Lethargy (05/11/15) Lumbago MRI in 1995 showed DJD and DDD. No stenosis or herniation.; 02/22/10-steroid inj. into the greater trochanteric bursa-Dr. 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 visual changes, repeated 2005 was normal; visual speech changes-MRI/MRA 2004 showed small vessel disease in the adali ? of ischemic disea Carotid artery stenosis MRI in 2004 shows carotid on the left 50-60% occlusion. vision and speech changes. Balance disorder (08/31/17) Asthma, exercise induced (10/03/13) Aphthous ulcer (01/30/14) Anxiety Lumbar back pain with radiculopathy affecting right lower extremity Spondylosis of lumbar region without myelopathy or radiculopathy Surgical History Surgical History S/P knee replacement 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 Hunter History of right shoulder replacement Hx of shoulder replacement [facility] Dr. Segundo. August 2018 History of esophagogastroduodenoscopy (~05/21/21) 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 MCLAUGHLIN LEFT total hip not right. Tonsillectomy and adenoidectomy as a small child Rotator Cuff Repair 12/01/17 (R) Nita EGD - MAC (~2000) Dilation and curettage 1975 1981 Colonoscopy - MAC (~10/28/22) 2000 Cholecystectomy (~1980) Bursectomy Left trochanteric Bladder Surgery (~1994) resection Appendectomy (04/17/80) Tobacco Smoking/Tobacco Use Status: Former Tobacco Use Passive smoking exposure: Yes Second hand exposure: Yes Alcohol Alcohol Intake: never Substance Use Substance use: Never Substance use type: does not use Vital Signs and Lab Results Vital Signs Most Recent Vital Signs in EMR: Most Recent Vital Signs Temp Pulse Resp BP Pulse Ox 36.5 C 72 16 136/69 95 11/17/23 08:20 11/17/23 08:20 11/17/23 08:20 11/17/23 08:20 11/17/23 08:20 Lab Results Blood Type / Crossmatch: No Data to Display Complete Blood Count: No Data to Display Complete Metabolic Panel: No Data to Display Liver Function Panel: No Data to Display Coagulation Panel: No Data to Display Cardiac Panel: No Data to Display Arterial Blood Gas: No Data to Display Venous Blood Gas: No Data to Display Pancreas Panel: No Data to Display Thyroid Panel: No Data to Display Infectious Disease: No Data to Display Blood Cultures: No Data to Display Toxicology Panel: No Data to Display Imaging and Studies Imaging and Studies Study information below may be from another EMR and interpreted by another provider. Please see original notes in EMR for more complete details. Stress Test Summary: 05/17/2017 - Normal study after maximal exercise. - Low risk of cardiac events. Summary: 1. Myocardial perfusion imaging: No myocardial perfusion defects noted. 2. The calculated left ventricular ejection fraction after stress: 70%. LV global systolic function is normal. No left ventricular regional motion abnormality. Echocardiogram Summary: Date of Exam: 08/14/14Sex: F Impressions: Normal study. Summary: 1. Left ventricle: The cavity size was normal. Wall thickness was normal. Systolic function was normal. The estimated ejection fraction was 60-65%. Wall motion was normal; there were no regional wall motion abnormalities. 2. Aortic valve: Trileaflet; normal thickness leaflets. 3. Mitral valve: Structurally normal valve. 4. Left atrium: The atrium was normal in size. 5. Right ventricle: The cavity size was normal. Wall thickness was normal. Systolic function was normal. 6. Tricuspid valve: Structurally normal valve. 7. Pulmonary arteries: Pulmonary systolic pressure was within the normal range. Carotid Artery Summary:: Date of Exam: 05/13/15 CONCLUSION: No evidence of a hemodynamically significant carotid stenosis. Pulmonary Function Summary: 09/28 Mild obstructive airways disease with significant bronchodilator response. Anesthesia Assessment and Plan Anesthesia History Personal History: No History of Anesthesia Complications Family History: No Family History of Anesthesia Complications Exercise Tolerance Exercise Tolerance: Metabolic Equivalents>4 Pertinent Negatives Pertinent Negatives: No Major Cardiovascular Symptoms or Complaints, No Major Pulmonary Symptoms or Complaints and No History of CVA/TIA Cardiac & Pulmonary Exam Cardiac Exam: Normal S1/S2 Heart Sounds Pulmonary Exam: Clear Bilateral Breath Sounds Implantable Cardiac Device Does patient have a Pacemaker or an ICD?: No Airway Exam Known Difficult Airway: No Mallampati Class: 2 Mouth Opening: Normal (> 3cm) Thyromental Distance: Less than 3 cm Neck Range of Motion: Full ROM Neck Circumference: Normal Teeth Condition: Normal Dentition ASA Classification ASA Score: ASA 3 Emergency Case?: No NPO Status NPO Status: NPO Clears >2 hours, Solids >8 hours Anesthesia Plan Resuscitation Status: Full Code Anesthesia Technique: General Anesthesia Airway Planned: Natural Airway Monitors Used: Standard Monitors
[2023-11-17 09:16] VITALS: BMI 27.5
--- NOTE | 2023-11-17 09:30 | STOM_PTH ---
PATIENT: Julissa Etienne LOC: [facility] U#:[id number] AGE/SX: 78/F ROOM: RE11/17/[address]: Nury Arenas : 1945 BED: DIS: 11/17/2023 SPEC #: [id number] RECD: 11/17/23 12:25 STATUS: KARMEN Simón #: [id number] ELIAS: 11/17/23 09:[address]: Nury Arenas DEPT: Surgical Specimen RECD BY: Zuly Multani ENTERED: 11/17/23 12:27 SP TYPE: STOMACH OTHR DR: Mellissa Garnett MD, DC Tissues: 1 - BIOPSY BOWEL 2 - BIOPSY BOWEL 3 - STOMACH BIOPSY 4 - STOMACH BIOPSY 5 - STOMACH BIOPSY 6 - ESOPHAGUS BIOPSY 7 - ESOPHAGUS BIOPSY 8 - ESOPHAGUS BIOPSY Procedures: GROSS AND MICRO LEVEL 4 Comments: [id number]
[2023-11-17 09:40] VITALS: BP 111/63; PULSE 67; RESP 16; TEMP 36; O2SAT 95
[2023-11-17 10:12] VITALS: BP 150/71; PULSE 60; RESP 14; TEMP 36.2; O2SAT 100
--- NOTE | 2023-11-17 10:48 | W.ANESPOSTOP ---
Postoperative Evaluation Date, Time and Location Date Performed: 11/17/23 Time Performed: 10:48 Patient Location: Day Surgery Unit Vital Signs Most Recent Imported Vital Signs: Most Recent Vital Signs Temp Pulse Resp BP Pulse Ox 36.2 C L 60 14 150/71 H 100 11/17/23 10:12 11/17/23 10:12 11/17/23 10:12 11/17/23 10:12 11/17/23 10:12 Pain Score Most Recent Pain Score: Most Recent Pain Score Pain Level 0 11/17/23 10:12 Assessment Mental Status: Awake (Alert & Oriented to Patient Baseline) Airway and Respiratory Function: Patent airway with normal (patient baseline) respiratory exam Cardiovascular Function: Hemodynamically Stable Hydration Status: Adequately Hydrated Nausea & Vomiting: No Nausea or Vomiting Pain: Pt. Denies Any Pain Peripheral Nerve Block: Patient did not receive a nerve block
== END 2023-11-17 10:42 | disposition home or self-care (01) ==
LOC: SUR 08:10
PROVIDERS: PCP Family Medicine; Visit Provider Surgery
PROC: 0DJ68ZZ Inspection of Stomach, Via Natural or Artificial Opening Endoscopic (ICD-10-PCS; CPT 43235; principal; 2023-11-17 09:00)
DX: R13.10 Dysphagia, unspecified (principal); I10 Essential (primary) hypertension; K44.9 Diaphragmatic hernia without obstruction or gangrene; R49.0 Dysphonia; K31.7 Polyp of stomach and duodenum; F32.9 Major depressive disorder, single episode, unspecified
CPT/HCPCS: 43239; 88305; J2001; J2704

== ENCOUNTER 2023-12-08 19:00 | Emergency (ER) | payer MEDICARE, OTHER, SELFPAY ==
[2023-12-08 19:02] VITALS: BP 179/83; PULSE 73; RESP 20; TEMP 36; O2SAT 98
--- NOTE | 2023-12-08 19:15 | DI.CT_ITS ---
Exam(s) CT HEAD FACIAL WO EXAM: CT HEAD FACIAL WO CLINICAL HISTORY: Fall 48 hours ago, vomiting. TECHNIQUE: Imaging Protocol: Axial computed tomography images with coronal and sagittal reformatted images were created and reviewed COMPARISON: CT CT BRAIN NECK CTA from 01/09/2023 FINDINGS: CT Head: Ventricles and Extra axial spaces: Normal in size and morphology for the patient's age. Hemorrhage: None. Cerebral parenchyma: Mild white matter changes of small vessel disease. Midline shift: None. Brainstem/Cerebellum: Normal. Calvarium: Normal. Visualized Paranasal sinuses/Mastoids: Minimal mucous retention the floor of the right maxillary sinu s. Soft Tissues: Unremarkable. CT Face: Facial Bones: No fracture is noted in facial bones. Sinuses and Mastoids: Minimal mucous retention at the floor of the right maxillary sinus. Globes, extraocular muscles, optic nerves and retrobulbar fat: Normal. Upper aerodigestive tract: Normal. Mandible and bilateral temporomandibular joints: Normal. Soft tissues: Normal. IMPRESSION: 1. No acute intracranial process. 2. No acute facial fracture. RADIATION DOSE DELIVERED: Total DLP DATA REPOSITORY: All CT scans at this facility are submitted to the National Radiology Data Registry (NRDR) Dose Index Registry (DIR) with the [employer] (A[employer]). RADIATION OPTIMIZATION: All CT scans at this facility use at least one of these dose optimization te chniques: automated exposure control; mA and/or kV adjustment per patient size (includes targeted exa ms where dose is matched to clinical indication); or iterative reconstruction.
--- NOTE | 2023-12-08 19:15 | DI.RAD_ITS ---
Exam(s) XR KNEE LT 4V AP,LAT,TITI,PAT EXAM: XR KNEE LT 4V AP,LAT,TITI,PAT CLINICAL HISTORY: Fall, swelling. TECHNIQUE: 2D digital imaging was performed. Three views. COMPARISON: CR XR KNEE RT 2V AP,LAT from 12/23/2022 FINDINGS: BONES: Nondisplaced fracture is noted at the lateral aspect of the patella. No significant separati on at the articular surface. No additional fractures are identified. No bony destructive lesion is seen. JOINTS: degenerative changes throughout. A small joint effusion is seen. SOFT TISSUE: Normal. IMPRESSION: Nondisplaced patellar fracture. DATA REPOSITORY: RADIATION DOSE DELIVERED:
--- NOTE | 2023-12-08 19:18 | ED.GENADUL_ITS ---
Discharge Plan Disposition Patient Disposition: Home Condition: Stable Discharge Details Clinical Impression: Closed fracture of left patella, Fall, Closed head injury without concussion Primary Care Provider: Mellissa Garnett ED Provider: Arline Arellano Home Meds and New Rx's Prescriptions: Continued Systane Complete 0.6 % drops 1 drp OP TID PRN atorvastatin 10 mg tablet 10 mg PO DAILY Qty: 90 4RF mirtazapine 7.5 mg tablet 7.5 mg PO QHS Qty: 90 4RF paroxetine HCl 20 mg tablet 20 mg PO DAILY Qty: 90 4RF oxybutynin chloride 10 mg tablet extended release 24hr 10 mg PO DAILY Qty: 30 12RF nystatin 100,000 unit/gram powder 1 applic Topical BID PRNQty: 60 Rx Instructions: 1-3 GM BID acetaminophen 500 mg tablet 1,000 mg PO Q8H PRN (Reason: pain) Qty: 90 3RF Fortify Probiotic 50 billion cell-50 mg Capsule,Delayed Release(Dr/Ec) 1 cap PO DAILY dexlansoprazole [Dexilant] 30 mg capsule,biphase delayed releas 30 mg PO DAILY Qty: 90 6RF multivitamin 1 EACH capsule 1 cap PO DAILY cholecalciferol (vitamin D3) [Vitamin D3] 1,000 UNIT capsule 1,000 unit PO DAILY Discharge Instructions Instructions: Head Injury Observation (DC), Patella Fracture ED, Preventing Falls ED Additional Instructions: At this time no intracranial bleeding or facial bone fractures. However, you do have a left patella fracture. Please follow-up with orthopedics within the next week. You are placed on a referral list they will call you with an appointment. If you do not hear from them by Monday or Monday you may call them yourself. Stay off of your leg is much as possible. Rest ice compression elevation. Use the knee immobilizer is much as possible until follow-up. Please take Tylenol with food every 4-6 hours as needed for pain and swelling. Referrals: John Paul Hunter MD [ [facility]FF [facility]YSICIAN] - 5 days HPI General Mode of arrival: ambulatory . Date/Time Provider Initiated Documentation: 12/08/23 19:02 . Limitations to Documentation: no limitations . Information obtained by: patient, RN notes reviewed and old records reviewed . HPI Narrative: 78 year old female presents with vomiting after a head injury on Monday. Patient fell forward hitting the left side of her face and left knee. Today she began with nausea, vomiting, feeling shaky and motion sick. Has been taking Tylenol. Denies abdominal pain. Related Data Home Medications ?Medication ?Instructions ?Recorded ?Confirmed multivitamin 1 cap PO DAILY 07/14/17 12/08/23 cholecalciferol (vitamin D3) 25 1,000 unit PO DAILY 11/21/17 12/08/23 mcg (1,000 unit) capsule (Vitamin D3) nystatin 100,000 unit/gram topical 1 applic topical BID PRN #60 grams 06/19/18 12/08/23 powder acetaminophen 500 mg tablet 1,000 mg (2 x 500 mg) PO Q8H PRN 04/03/19 12/08/23 pain #90 tabs propylene glycol 0.6 % eye drops 1 drp ophthalmic (eye) TID PRN 06/08/20 12/08/23 (Systane Complete) Lacto-B.anim,bifid-inulin 50 1 cap PO DAILY 10/27/22 12/08/23 billion cell-50 mg capsule,delay release (Fortify Probiotic) atorvastatin 10 mg tablet 10 mg PO DAILY #90 tabs 02/09/23 12/08/23 mirtazapine 7.5 mg tablet 7.5 mg PO QHS #90 tabs 02/09/23 12/08/23 oxybutynin chloride 10 mg 10 mg PO DAILY #30 tabs 06/05/23 12/08/23 tablet,extended release 24 hr paroxetine HCl 20 mg tablet 20 mg PO DAILY #90 tabs 09/19/23 12/08/23 dexlansoprazole 30 mg 30 mg PO DAILY #90 caps 11/17/23 12/08/23 capsule,biphase delayed release (Dexilant) Previous Rx's ?Medication ?Instructions ?Recorded acetaminophen 500 mg tablet 1,000 mg (2 x 500 mg) PO Q8H PRN 04/03/19 pain #90 tabs atorvastatin 10 mg tablet 10 mg PO DAILY #90 tabs 02/09/23 mirtazapine 7.5 mg tablet 7.5 mg PO QHS #90 tabs 02/09/23 oxybutynin chloride 10 mg 10 mg PO DAILY #30 tabs 06/05/23 tablet,extended release 24 hr paroxetine HCl 20 mg tablet 20 mg PO DAILY #90 tabs 09/19/23 dexlansoprazole 30 mg 30 mg PO DAILY #90 caps 11/17/23 capsule,biphase delayed release (Dexilant) Allergies Allergy/AdvReac Type Severity Reaction Status Date / Time oxycodone HCl (From Percocet) AdvReac hallucinati Verified 11/16/23 13:10 ons General Stated Complaint: Fall/Non TraumaCriteria STEVO: 3 Review of Systems All systems reviewed & are unremarkable except as noted in HPI and below Constitutional Constitutional: Reports as per HPI and Reports headache(s) ENT Ears, Nose, Mouth, and Throat: Reports headache(s) Cardiovascular Cardiovascular: Denies chest pain and Denies dyspnea Respiratory Respiratory: Denies dyspnea Gastrointestinal Gastrointestinal: Denies abdominal pain, Denies diarrhea, Denies nausea and D enies vomiting Musculoskeletal Musculoskeletal: Reports arthralgias and Reports joint swelling Neurologic Neurologic: Reports headache(s) Exam Narrative Exam Narrative: General: Well Developed, Awake and Alert, conversant. Skin: Warm and Dry HEENT: Head: No palpable deformities, Normocephalic Eyes: Pupils PERRLA, EOM's intact. No periorbital eccymosis or step off Ears: Canal patent. Tympanic membranes are clear . No hansen's sign, no hemptympanum. Nose/Face: Ecchymosis surrounding her left orbit EOM intact. Facial bones nontender to palpation and stable with manipulation. Mouth/Throat: No intraoral trauma. Teeth and mandible are intact. Neck: No midline tenderness, no step off, no deformity to palpation of C-spine. Trachea midline. Chest: No surface trauma. Nontender without crepitus or deformity. Lungs clear to ausculatation bilaterally. Heart: RRR, no rubs, murmurs or gallop. Abdomen: No abrasions, ecchymosis, or surface trauma. Nondistended. Nontender to palpation no guarding, rebound, or rigidity. Pelvis: Nontender to palpation and stable to compression. Femoral pulses strong and equal Extremities: Left anterior knee swelling noted. Sensation intact. Peripheral pulses intact and equal. Neuro: ANO x4, GCS 15, cranial nerves II through XII intact. Motor and sensory exam nonfocal. Reflexes are symmetric. Course Vital Signs Vital signs: Vital Signs Temperature 36 C L 12/08/23 19:02 Pulse 73 12/08/23 19:02 Respiratory Rate 20 12/08/23 19:02 Blood Pressure 179/83 H 12/08/23 19:02 Pulse Oximetry 98 12/08/23 19:02 Temperature 36 C L 12/08/23 19:02 Pulse 73 12/08/23 19:02 Respiratory Rate 20 12/08/23 19:02 Respiratory Effort Normal 12/08/23 19:10 Blood Pressure 179/83 H 12/08/23 19:02 Pulse Oximetry 98 12/08/23 19:02 Oxygen Delivery Method Room Air 12/08/23 19:02 Oxygen Flow Rate 0 12/08/23 19:02 Medical Decision Making 78 year old female presents with vomiting after a head injury on Monday night. Patient fell forward hitting the left side of her face and left knee. Today she began with nausea, vomiting, feeling shaky and motion sick. Has been taking Tylenol. Denies abdominal pain. Negative CT head and facial bones without contrast. X-ray of left knee ordered. Patient placed in a knee immobilizer and discussed the CT and Xray results and follow up with orthopedics. She verbalizes understanding and has had a right knee replacement by Dr. Hunter in the past. This text was generated using [employer] dictation system, please disregard any oddities of phrase or misspellings. Medical Records Medical records reviewed: Yes I reviewed the patient's medical records. Imaging Data Radiologic Study: Imaging: CT Scan Radiologist's impression: Clinical indication: Injury or trauma; Blunt trauma (contusions or hematomas); Cheek bone and orbit/periorbital and maxilla; Left; Injury details: Fall 48 hours ago, vomiting TECHNIQUE: Imaging protocol: Computed tomography of the head without contrast. COMPARISON: MR IAC BRAIN WO/W 01/27/2023 9:35 AM FINDINGS: Brain: There is no acute intracranial hemorrhage, mass effect or midline shift. No large acute territorial infarct identified. There are patchy regions of hypodensity in the periventricular and subcortical white matter, likely on the basis of chronic microvascular ischemic disease. There are small hypodensities in the left basal ganglia, suggestive of remote lacunar infarcts. Cerebral ventricles: The ventricles and sulci are prominent in size, which is at least in part due to global cerebral volume loss. Paranasal sinuses: Visualized sinuses are unremarkable. No fluid levels. Mastoid air cells: Visualized mastoid air cells are well aerated. Bones: Unremarkable. No acute fracture. Soft tissues: Unremarkable. IMPRESSION: No acute intracranial hemorrhage, mass effect or midline shift. FINDINGS: Orbital cavities: Orbits are normal. Globes are unremarkable. Paranasal sinuses: Normal. No air-fluid levels. Bones: No acute fracture. Soft tissues: Unremarkable. IMPRESSION: No acute findings Radiologic Study #2: Imaging: X-Ray Radiologist's impression: Clinical indication: Injury or trauma; Fall; Blunt trauma; Knee; Left; Injury date: 12/06/23; Additional info: Fall 48 hours ago, vomiting TECHNIQUE: Imaging protocol: Radiologic exam of the left knee. Views: 4 or more views. COMPARISON: CR XR KNEE LT 3V AP,LAT,TITI 02/01/2019 9:03 AM FINDINGS: Bones/joints: Small joint effusion. Degenerative changes with joint space narrowing and osteophyte formation throughout the knee. Mildly displaced lateral patellar fracture. No other fractures identified. No dislocation. Soft tissues: Normal. IMPRESSION: Mildly displaced lateral patellar fracture. Thank you for allowing us to participate in the care of your patient. Dictated and Authenticated by: Glenn Holloway MD Lab Data Lab results reviewed: Yes I reviewed the patient's lab results. Labs: Laboratory Tests Range/Units 12/08/23 12/08/23 12/08/23 19:29 19:43 20:11 WBC (4.4-10.8) 10^3/uL 9.08 RBC (3.93-5.22) 10^6/uL 4.27 Hgb (11.2-15.7) g/dL 13.1 Hct (36.0-46.0) % 39.0 MCV (80-95) fL 91 MCH (27.0-33.0) pg 30.7 MCHC (32.0-36.0) % 33.6 RDW (11.7-14.6) % 12.6 Plt Count (130-400) 10^3/uL 175 MPV (8.0-11.0) fL 9.6 Immature Gran % % 0.2 Neutrophils % % 73.0 Lymphocytes % % 18.3 Monocytes % % 7.0 Eosinophils % % 0.9 Basophils % % 0.6 Nucleated RBC % (0.0-0.3) % 0.0 Absolute Neutrophils (1.2-6.7) 10^3/uL 6.63 Absolute Lymphocytes (1.2-3.4) 10^3/uL 1.66 Absolute Monocytes (0.1-0.8) 10^3/uL 0.64 Absolute Eosinophils (0.0-0.7) 10^3/uL 0.08 Absolute Basophils (0.0-0.2) 10^3/uL 0.05 PT Cancelled 11.0 INR Cancelled 1.1 APTT Cancelled 25.2 Sodium (136-145) mmol/L 139 Potassium (3.5-5.1) mmol/L 3.7 Chloride (98-107) mmol/L 103 Carbon Dioxide (21.0-32.0) mmol/L 27.1 Anion Gap (3-11) mmol/L 8.9 BUN (7-18) mg/dL 15 Creatinine (0.55-1.02) mg/dL 0.7 Est GFR (CKD-EPI 2020) (mL/min/1.73m2) 87.37 Glucose (74-106) mg/dL 104 Calcium (8.5-10.1) mg/dL 9.3 Total Bilirubin (0.2-1.0) mg/dL 0.47 AST (15-37) U/L 31 ALT (14-59) U/L 24 Alkaline Phosphatase (46-116) U/L 102 Total Protein (6.4-8.2) g/dL 7.7 Albumin (3.4-5.0) g/dL 3.9 Quality:SDOH Health Related Social Needs: No Data to Display PFSH All Active Problems (Updated 12/08/23 @ 21:16 by Arline Arellano NP) Closed head injury without concussion (Acute) Fall (Acute) Closed fracture of left patella (Acute) Hoarseness of voice (Acute) Greater trochanteric pain syndrome (Acute) Neuropathy (Acute) Dysphagia (Acute) Hallux rigidus of right foot (Acute) Bunion, right foot (Acute) Asymmetrical sensorineural hearing loss (Acute) Pes anserinus bursitis of right knee (Acute) Stenosis, spinal, lumbar (Acute) Right hip pain (Acute) Urinary incontinence (Acute) Essential hypertension (Chronic 02/12/13) Depressive disorder (Chronic) Serrated adenoma of colon (Acute) Diverticulosis of colon without diverticulitis (Chronic) DNR (do not resuscitate) (Acute) Medical History (Updated 12/08/23 @ 21:16 by Arline Arellano NP) Numbness of face Lumbosacral spondylosis without myelopathy Decreased hearing Colon polyp, hyperplastic (~10/2022) Grief Pain, foot Nail dystrophy Tendinitis of ankle Ankle pain Elevated blood pressure reading Skin tag, acquired Right knee pain Dysplastic colon polyp cecum- low grade. Repeat CE October 2021 Adenomatous colon polyp cecum 06/08 Diverticula of colon Hiatal hernia Chronic GERD RLQ abdominal pain Trochanteric bursitis, right hip Injection: 03/05/2021 Bilateral thumb pain Right knee injury Constipation Stress at home Vertigo Wound cellulitis Epigastric abdominal pain Chest wall pain, chronic Myalgia Hematoma of eyelid Hypertension History of skin cancer Headache Primary osteoarthritis of left knee Granulomatous disorder of the skin and subcutaneous tissue, unspecified Postoperative examination Spinal stenosis Skin cancer, basal cell Malignant neoplasm of urinary bladder Abnormal weight loss (01/30/17) Anemia (12/26/11) Arthritis of left hip (08/02/16) Chronic cystitis Cough (08/14/12) Epicondylitis Gastritis Giardiasis Hematuria Herpes zoster Pt. states years ago Hypokalemia (12/26/11) Abdominal or pelvic swelling, mass, or lump, left lower quadrant (03/16/01) Short of breath on exertion (07/17/14) Sinusitis Upper airway resistance syndrome Vulvar pain (09/16/11) [id number] deficiency Shoulder pain Chronic maxillary sinusitis Right sided facial pain Vitamin D deficiency (12/28/11) Trigeminal neuralgia (09/17/14) Positive ASH (antinuclear antibody) (06/07/16) Osteopenia dexa 2003 showing T-scores -1.6, -0.7, 1.1 Peripheral neuropathy (09/21/15) Neck pain (05/31/16) Lethargy (05/11/15) Lumbago MRI in 1995 showed DJD and DDD. No stenosis or herniation.; 02/22/10-steroid inj. into the greater trochanteric bursa-Dr. 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 visual changes, repeated 2005 was normal; visual speech changes-MRI/MRA 2004 showed small vessel disease in the adali ? of ischemic disea Carotid artery stenosis MRI in 2004 shows carotid on the left 50-60% occlusion. vision and speech changes. Balance disorder (08/31/17) Asthma, exercise induced (10/03/13) Aphthous ulcer (01/30/14) Anxiety Lumbar back pain with radiculopathy affecting right lower extremity Spondylosis of lumbar region without myelopathy or radiculopathy Surgical History (Updated 11/20/23 @ 10:16 by Mary Hunt) S/P knee replacement 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 Hunter History of right shoulder replacement Hx of shoulder replacement [facility] [place] Dr. Segundo. August 2018 History of esophagogastroduodenoscopy (~05/21/21) 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 MCLAUGHLIN LEFT total hip not right. Tonsillectomy and adenoidectomy as a small child Rotator Cuff Repair 12/01/17 (RSalinas Moya EGD - MAC (~11/2023) Dilation and curettage 1975 1981 Colonoscopy - MAC (~10/28/22) 2000 Cholecystectomy (~1980) Bursectomy Left trochanteric Bladder Surgery (~1994) resection Appendectomy (04/17/80) Family History Mother , 89 Essential hypertension Heart disease Hyperlipidemia Stroke Dementia Father [id number] deficiency liver Diabetes Asthma Substance use disorder Depression Sister , 54 Awfsi-[id number] deficiency lungs Lung transplanted B/L Hyperlipidemia Essential hypertension Substance use disorder Sister Essential hypertension Hyperlipidemia Asthma A CHILD Maternal Grandfather , 89 Diabetes Essential hypertension Depression Paternal Grandfather Heart disease Asthma Maternal Grandmother , 71 Essential hypertension Hyperlipidemia Stroke Heart disease Substance use disorder Paternal Grandmother , 83 Essential hypertension Heart disease Hyperlipidemia Stroke Daughter No problems noted. Social History Smoking/Tobacco Use Status: Former Tobacco Use tobacco type: cigarettes Quit Date: 04/17/63 Second Hand Exposure: Yes Smoking risk assessment performed?: Yes Alcohol Intake: never Drug use: Never Substance use type: does not use Adopted: No Caregiver/Support person: No Household members: other Details: Grandson Housing: house Number of Children: 1 number of grandchildren: 2 Communication Needs: None Education Level: college Do you need help understanding health information?: Rarely current occupation: retired Pets and animals: No Sexually active: No Do you think of yourself as: straight/heterosexual Current gender identity: female What is your relationship status?: How often do you talk on the phone with friends or family?: three or more times per week How often do you get together with friends or relatives?: three or more times per week How often do you attend sabianist or baptism services?: 4 or more times per year Do you belong to any clubs or organized social groups?: no Panel score (0-1 are the most socially isolated patients): 2 What type of physical activity do you participate in: walking, bicycling and regular exercise Duration: 45-60 minutes/day Frequency: daily Elena/Methodist: Baptism Special elena needs: No Seatbelt use: always Helmet use: Yes Helmet use: always Drive intox or ride w/intox hazardous materials driver: No Firearms in home: Yes Firearms unloaded and locked: Yes Do you feel safe at home: Yes Do you feel safe in your relationship?: Yes Victim of physical abuse: No Victim of emotional abuse: No Victim of sexual abuse: No Would you like helpful sources: No
[2023-12-08 19:36] LABS: Abs Immature Grans 0.02 10^3/uL (0.0-0.06); Absolute Basophil Count 0.05 10^3/uL (0.0-0.2); Absolute Eosinophil Count 0.08 10^3/uL (0.0-0.7); Absolute Lymphocyte Count 1.66 10^3/uL (1.2-3.4); Absolute Monocyte Count 0.64 10^3/uL (0.1-0.8); Absolute Neutrophil Count 6.63 10^3/uL (1.2-6.7); Basophils % 0.6 %; Eosinophils % 0.9 %; HGB 13.1 g/dL (11.2-15.7); Immature Grans % 0.2 %; Lymphocytes % 18.3 %; MCH 30.7 pg (27.0-33.0); MCHC 33.6 % (32.0-36.0); MCV 91 fL (80-95); MPV 9.6 fL (8.0-11.0); Platelet Count 175 10^3/uL (130-400); RBC 4.27 10^6/uL (3.93-5.22); RDW 12.6 % (11.7-14.6); RDW-SD 42.7 fL; WBC 9.08 10^3/uL (4.4-10.8)
[2023-12-08] MEDS: Ondansetron 4 MG/2 ML VIAL IVP (19:45)
[2023-12-08 19:52] LABS: ALT 24 U/L (14-59); AST 31 U/L (15-37); Albumin 3.9 g/dL (3.4-5.0); Alkaline Phosphatase 102 U/L (46-116); Anion Gap 8.9 mmol/L (3-11); BUN 15 mg/dL (7-18); Bilirubin, Total 0.47 mg/dL (0.2-1.0); CO2 27.1 mmol/L (21.0-32.0); CREATININE 0.7 mg/dL (0.55-1.02); Calcium 9.3 mg/dL (8.5-10.1); Chloride 103 mmol/L (98-107); Estimated GFR 87.37 (mL/min/1.73m2); Glucose 104 mg/dL (74-106); Potassium 3.7 mmol/L (3.5-5.1); Sodium 139 mmol/L (136-145); Total Protein 7.7 g/dL (6.4-8.2)
[2023-12-08] MEDS: Normal Saline 1,000 ML 200 ML IV (20:17)
[2023-12-08 20:31] LABS: INR 1.1 (0.9-1.1); PTT Activated 25.2 sec (23.6-32.8)
--- NOTE | 2023-12-08 20:35 | DI.VRAD_ITS ---
PROCEDURE INFORMATION: Exam: CT Head Without Contrast Exam date and time: 12/08/2023 7:37 PM Age: 78 years old Clinical indication: Injury or trauma; Blunt trauma (contusions or hematomas); Cheek bone and orbit/periorbital and maxilla; Left; Injury details: Fall 48 hours ago, vomiting TECHNIQUE: Imaging protocol: Computed tomography of the head without contrast. COMPARISON: MR IAC BRAIN WO/W 01/27/2023 9:35 AM FINDINGS: Brain: There is no acute intracranial hemorrhage, mass effect or midline shift. No large acute territorial infarct identified. There are patchy regions of hypodensity in the periventricular and subcortical white matter, likely on the basis of chronic microvascular ischemic disease. There are small hypodensities in the left basal ganglia, suggestive of remote lacunar infarcts. Cerebral ventricles: The ventricles and sulci are prominent in size, which is at least in part due to global cerebral volume loss. Paranasal sinuses: Visualized sinuses are unremarkable. No fluid levels. Mastoid air cells: Visualized mastoid air cells are well aerated. Bones: Unremarkable. No acute fracture. Soft tissues: Unremarkable. IMPRESSION: No acute intracranial hemorrhage, mass effect or midline shift. PROCEDURE INFORMATION: Exam: CT Maxillofacial Without Contrast Exam date and time: 12/08/2023 7:37 PM Age: 78 years old Clinical indication: Injury or trauma; Blunt trauma (contusions or hematomas); Cheek bone and orbit/periorbital and maxilla; Left; Injury details: Fall 48 hours ago, vomiting TECHNIQUE: Imaging protocol: Computed tomography of the face without contrast. COMPARISON: MR IAC BRAIN WO/W 01/27/2023 9:35 AM FINDINGS: Orbital cavities: Orbits are normal. Globes are unremarkable. Paranasal sinuses: Normal. No air-fluid levels. Bones: No acute fracture. Soft tissues: Unremarkable. IMPRESSION: No acute findings. Dictated and Authenticated by: Camryn Stafford MD. Ordering:TIGRE Nunn MD
--- NOTE | 2023-12-08 21:12 | DI.VRAD_ITS ---
PROCEDURE INFORMATION: Exam: XR Left Knee Exam date and time: 12/08/2023 7:54 PM Age: 78 years old Clinical indication: Injury or trauma; Fall; Blunt trauma; Knee; Left; Injury date: 12/06/23; Additional info: Fall 48 hours ago, vomiting TECHNIQUE: Imaging protocol: Radiologic exam of the left knee. Views: 4 or more views. COMPARISON: CR XR KNEE LT 3V AP,LAT,TITI 02/01/2019 9:03 AM FINDINGS: Bones/joints: Small joint effusion. Degenerative changes with joint space narrowing and osteophyte formation throughout the knee. Mildly displaced lateral patellar fracture. No other fractures identified. No dislocation. Soft tissues: Normal. IMPRESSION: Mildly displaced lateral patellar fracture. Dictated and Authenticated by: Glenn Holloway MD. Ordering:TIGRE Nunn MD
[2023-12-08 21:14] LABS: Bilirubin Negative (Negative); Blood Trace-intact (Negative); Clarity Clear (Clear); Glucose Negative (Negative); Ketones Negative (Negative); Leukocyte Esterase Small (Negative); Nitrite Negative (Negative); Urobilinogen 0.2 mg/dL (Up to 0.2)
[2023-12-08 21:26] LABS: Bacteria Rare HPF (Negative); C & S Indicated? No; Casts Negative LPF (Negative); Crystals Negative HPF (Negative); Epithelial Cells Rare HPF (Negative); Mucus Negative (Negative); RBC 0-2 HPF (0-2)
== END 2023-12-08 21:56 | disposition home or self-care (01) ==
PROVIDERS: Emergency Provider Registered Nurse Emergency; PCP Family Medicine
DX: S82.092A Other fracture of left patella, initial encounter for closed fracture (principal); S09.8XXA Other specified injuries of head, initial encounter; W18.39XA Other fall on same level, initial encounter; Y93.89 Activity, other specified; Y92.018 Other place in single-family (private) house as the place of occurrence of the external cause
CPT/HCPCS: 80053; 96374; 99284; 70450; 70486; 73564; 81003; 81015; 85025; 85610; 85730; J2405

== ENCOUNTER 2023-12-25 11:41 | Outpatient (CLI) | payer MEDICARE, OTHER, SELFPAY ==
--- NOTE | 2023-12-25 11:15 | DI.RAD_ITS ---
Exam(s) XR KNEE LT 3V AP,LAT,TITI EXAM: XR KNEE LT 3V AP,LAT,TITI CLINICAL HISTORY: left patella fracture. TECHNIQUE: 2D digital imaging was performed. Three views. COMPARISON: CR,XR XR KNEE LT 4V AP,LAT,TITI,PAT from 12/08/2023 FINDINGS: BONES: Stable alignment of patellar fracture. Some increased healing has occurred since the prior e xam. No bony destructive lesion is seen. JOINTS: The knee is normally aligned. No joint effusion is seen. Moderate to severe narrowing the pat ellofemoral joint. Moderate narrowing of the femoral tibial joint spaces. SOFT TISSUE: Swelling anterior to patella. IMPRESSION: Healing patellar fracture. DATA REPOSITORY: RADIATION DOSE DELIVERED:
--- NOTE | 2023-12-25 11:15 | DI.RAD_ITS ---
Exam(s) XR SHOULDER RT COMPLETE 2+V EXAM: XR SHOULDER RT COMPLETE 2+V CLINICAL HISTORY: right shoulder pain. TECHNIQUE: 2D digital imaging was performed. Five views. COMPARISON: CR XR SHOULDER RT COMPLETE 2+V from 04/03/2020 FINDINGS: BONES: No acute fracture is present. No bony destructive lesion is seen. Prior resection of the dist al clavicle. JOINTS: No dislocation present. Stable alignment of shoulder prosthesis. SOFT TISSUE: Normal. IMPRESSION: Stable appearance of shoulder prosthesis. DATA REPOSITORY: RADIATION DOSE DELIVERED:
== END 2023-12-25 11:42 | disposition home or self-care (01) ==
LOC: DIORS 11:42
PROVIDERS: PCP Family Medicine; Referring Provider Family Medicine; Visit Provider Student in an Organized Health Care Education/Training Program
DX: S82.002A Unspecified fracture of left patella, initial encounter for closed fracture (principal); W19.XXXA Unspecified fall, initial encounter; Z96.611 Presence of right artificial shoulder joint
CPT/HCPCS: 73562; 99213; 73030

== ENCOUNTER 2024-01-25 13:14 | Outpatient (CLI) | payer MEDICARE, OTHER, SELFPAY ==
--- NOTE | 2024-01-25 11:12 | DI.RAD_ITS ---
Exam(s) XR KNEE RT 2V AP,LAT EXAM: XR KNEE RT 2V AP,LAT CLINICAL HISTORY: RIGHT KNEE PAIN. TECHNIQUE: 2D digital imaging was performed. Three views. COMPARISON: CR XR KNEE RT 2V AP,LAT from 12/23/2022 FINDINGS: BONES: No acute fracture is present. No bony destructive lesion is seen. Stable appearance of total knee prosthesis. JOINTS: The knee is normally aligned. No joint effusion is seen. SOFT TISSUE: Normal. IMPRESSION: Stable appearance of total knee prosthesis. DATA REPOSITORY: RADIATION DOSE DELIVERED:
--- NOTE | 2024-01-25 11:12 | DI.RAD_ITS ---
Exam(s) XR KNEE LT 3V AP,LAT,TITI EXAM: XR KNEE LT 3V AP,LAT,TITI CLINICAL HISTORY: f/u L patella fx. TECHNIQUE: 2D digital imaging was performed. Three views. COMPARISON: CR XR KNEE LT 3V AP,LAT,TITI from 12/25/2023 FINDINGS: BONES: Fracture line in the lateral patellar facet appears unchanged. No bony destructive lesion is seen. JOINTS: The knee is normally aligned. No joint effusion is seen. Moderate to severe narrowing of jacob llofemoral joint and degenerative changes of the femoral tibial joints again noted. SOFT TISSUE: Normal. IMPRESSION: Stable appearance of patellar fracture. DATA REPOSITORY: RADIATION DOSE DELIVERED:
== END 2024-01-25 13:15 | disposition home or self-care (01) ==
LOC: DIORS 13:14
PROVIDERS: PCP Family Medicine; Visit Provider Physician Assistant
DX: Z96.651 Presence of right artificial knee joint; S82.002D Unspecified fracture of left patella, subsequent encounter for closed fracture with routine healing; X58.XXXD Exposure to other specified factors, subsequent encounter
CPT/HCPCS: 73562; 99213; 73560

== ENCOUNTER 2024-03-07 15:44 | Outpatient (CLI) | payer MEDICARE, OTHER, SELFPAY ==
--- NOTE | 2024-03-07 10:15 | DI.RAD_ITS ---
Exam(s) XR KNEE LT 2V AP,LAT EXAM: XR KNEE LT 2V AP,LAT CLINICAL HISTORY: F/U L PATELLA FX. TECHNIQUE: 2D digital imaging was performed. Three views. COMPARISON: CR XR KNEE RT 2V AP,LAT from 01/25/2024 CR XR KNEE LT 3V AP,LAT,TITI from 01/25/2024 FINDINGS: BONES: The patellar fracture is not visible on the lateral view. There is seen on the merchant's vi ew on the prior exam. No bony destructive lesion is seen. JOINTS: Severe degenerative changes at the patellofemoral joint. A small joint effusion is seen. S purring at the femoral condyles and tibial plateaus. Mild joint space narrowing. SOFT TISSUE: Normal. IMPRESSION: Patellar fracture is not visible on the two views performed. DATA REPOSITORY: RADIATION DOSE DELIVERED:
== END 2024-03-07 15:45 | disposition home or self-care (01) ==
LOC: DIORS 15:44
PROVIDERS: PCP Family Medicine; Referring Provider Family Medicine; Visit Provider Student in an Organized Health Care Education/Training Program
DX: S80.01XA Contusion of right knee, initial encounter (principal); X58.XXXA Exposure to other specified factors, initial encounter; S82.002A Unspecified fracture of left patella, initial encounter for closed fracture
CPT/HCPCS: 99213; 73560

== ENCOUNTER 2024-03-07 22:33 | Outpatient (REF) | payer MEDICARE, OTHER, SELFPAY | END 2024-03-07 22:34 | disposition home or self-care (01) | LOC: LBN 22:33 | PROVIDERS: PCP Family Medicine; Visit Provider Family Medicine | DX: N39.0 Urinary tract infection, site not specified (principal); Z23 Encounter for immunization; R35.0 Frequency of micturition; I10 Essential (primary) hypertension | CPT/HCPCS: 87086 ==

== ENCOUNTER 2024-03-08 13:06 | Outpatient (REF) | payer MEDICARE, OTHER, SELFPAY ==
[2024-03-08 15:02] LABS: Bilirubin Negative (Negative); Blood Negative (Negative); Clarity Clear (Clear); Glucose Negative (Negative); Ketones Negative (Negative); Leukocyte Esterase Small (Negative); Nitrite Negative (Negative); Specific Gravity 1.015 (1.005-1.025); Urobilinogen 0.2 mg/dL (Up to 0.2)
[2024-03-08 15:12] LABS: Bacteria Few HPF (Negative); C & S Indicated? Yes; Casts Negative LPF (Negative); Crystals Negative HPF (Negative); Epithelial Cells Negative HPF (Negative); Mucus Negative (Negative); Other Cells Negative (Negative); RBC Negative HPF (0-2)
== END 2024-03-08 13:07 | disposition home or self-care (01) ==
LOC: LBN 13:06
PROVIDERS: PCP Family Medicine; Visit Provider Family Medicine
DX: R35.0 Frequency of micturition (principal)
CPT/HCPCS: 81003; 81015; 87086

== ENCOUNTER → 2024-03-20 12:50 | Outpatient (BNVA) | payer MEDICARE, OTHER, SELFPAY | PROVIDERS: PCP Family Medicine; Referring Provider Family Medicine; Visit Provider Podiatrist | DX: M20.21 Hallux rigidus, right foot (principal); M79.671 Pain in right foot; M21.611 Bunion of right foot; M85.9 Disorder of bone density and structure, unspecified; M19.071 Primary osteoarthritis, right ankle and foot; R25.2 Cramp and spasm; S80.12XA Contusion of left lower leg, initial encounter; X58.XXXA Exposure to other specified factors, initial encounter; L60.2 Onychogryphosis | CPT/HCPCS: 99213 ==

== ENCOUNTER 2024-04-01 11:31 | Outpatient (CLI) | payer MEDICARE, OTHER, SELFPAY ==
[2024-04-01 12:29] LABS: Abs Immature Grans 0.02 10^3/uL (0.0-0.06); Absolute Basophil Count 0.03 10^3/uL (0.0-0.2); Absolute Eosinophil Count 0.04 10^3/uL (0.0-0.7); Absolute Lymphocyte Count 1.26 10^3/uL (1.2-3.4); Absolute Monocyte Count 0.66 10^3/uL (0.1-0.8); Absolute Neutrophil Count 5.09 10^3/uL (1.2-6.7); Basophils % 0.4 %; Eosinophils % 0.6 %; HCT 36.6 % (36.0-46.0); HGB 12.1 g/dL (11.2-15.7); Immature Grans % 0.3 %; Lymphocytes % 17.7 %; MCH 30.4 pg (27.0-33.0); MCHC 33.1 % (32.0-36.0); MCV 92 fL (80-95); MPV 10.6 fL (8.0-11.0); Monocytes % 9.3 %; Neutrophils % 71.7 %; Platelet Count 204 10^3/uL (130-400); RBC 3.98 10^6/uL (3.93-5.22); RDW 12.6 % (11.7-14.6); RDW-SD 42.2 fL
[2024-04-01 12:38] LABS: C-Reactive Protein < 0.50 mg/dL (<or=0.5)
== END 2024-04-01 11:32 | disposition home or self-care (01) ==
LOC: LOS 11:31
PROVIDERS: PCP Family Medicine; Referring Provider Family Medicine; Visit Provider Family Medicine
DX: L02.91 Cutaneous abscess, unspecified (principal); I87.2 Venous insufficiency (chronic) (peripheral); R22.42 Localized swelling, mass and lump, left lower limb; T14.8XXA Other injury of unspecified body region, initial encounter
CPT/HCPCS: 36415; 85025; 86140

== ENCOUNTER 2024-04-01 14:10 | Outpatient (CLI) | payer MEDICARE, OTHER, SELFPAY ==
--- NOTE | 2024-04-01 13:30 | DI.US_ITS ---
Exam(s) US SOFT TISSUE EXTREMITY EXAM: US SOFT TISSUE EXTREMITY CLINICAL HISTORY: Edema of lt lower leg, swelling, venous insufficency, R22.42, R60.0, I87.2. TECHNIQUE: Ultrasound was performed using standard protocol. COMPARISON: No exams were available for comparison FINDINGS: Sonographic assessment utilizing grayscale and color Doppler imaging was performed and targeted to th e area of clinical concern. There is mild increased blood flow seen in the subcutaneous tissues of the left calf which can be see n with a cellulitis. There is a complex fluid collection in the subcutaneous tissues in the area of concern measuring almost 5 cm in length in the 6-7 mm AP. There is some heterogeneity and thickening of the wall of the fluid collection at its superior aspect. IMPRESSION: Complex 5 cm long fluid collection subcutaneous tissues of the left calf. There is associated increa sed blood flow in the surrounding soft tissues. Differential considerations include resolving hemato ma or abscess. Please correlate with the patient's physical exam. DATA REPOSITORY:
== END 2024-04-01 14:30 ==
LOC: DI 14:12
PROVIDERS: PCP Family Medicine; Visit Provider Family Medicine
DX: I87.2 Venous insufficiency (chronic) (peripheral) (principal); R22.42 Localized swelling, mass and lump, left lower limb
CPT/HCPCS: 36415; 76881; 85025; 86140

== ENCOUNTER → 2024-04-04 14:26 | Outpatient (BNVA) | payer MEDICARE, OTHER, SELFPAY | PROVIDERS: PCP Family Medicine; Referring Provider Family Medicine; Visit Provider Urology | DX: C67.9 Malignant neoplasm of bladder, unspecified (principal); R32 Unspecified urinary incontinence | CPT/HCPCS: 99215 ==

== ENCOUNTER → 2024-04-08 11:24 | Outpatient (BNVA) | payer MEDICARE, OTHER, SELFPAY | PROVIDERS: PCP Family Medicine; Referring Provider Family Medicine; Visit Provider Surgery | DX: L02.416 Cutaneous abscess of left lower limb (principal); L03.116 Cellulitis of left lower limb | CPT/HCPCS: 99213; 96372; J0696 ==

== ENCOUNTER 2024-04-09 08:45 | Observation (INO) | payer MEDICARE, OTHER, SELFPAY ==
[2024-04-09] VITALS (17 sets, daily range): BP systolic 139–182; BP diastolic 61–81; PULSE 57–83; RESP 13–20; TEMP 36.2–36.7; O2SAT 95–98; BMI 27.7
[2024-04-09] MEDS: Acetaminophen 500 MG TAB 1000 MG PO (09:11)
[2024-04-09] MEDS: Gabapentin 300 MG CAP PO (09:11)
[2024-04-09] MEDS: cefTRIAXone 1 GM/50 ML BAG IVPB (09:11)
[2024-04-09] MEDS: Normal Saline Flush 10 ML SYR IVP (09:13)
--- NOTE | 2024-04-09 09:18 | W.ANESPRE ---
General Info Date of Service Date Performed: 04/09/24 Height: 5 ft 2 in Weight: 68.8 kg Body Mass Index (BMI): 27.7 Surgical Procedure: Operation Date: 04/09/24 09:10 Proposed Procedure Side Surgeon p I&D Lower Leg Abcess Left Nury Fagan Dagoberto, DO Actual Procedure Side Surgeon p I&D Lower Leg Abcess Left Nury Rylan Arenas, DO Meds Allergies and Home Medications Allergies Allergy/AdvReac Type Severity Reaction Status Date / Time oxycodone HCl (From Percocet) AdvReac hallucinati Verified 04/08/24 11:34 ons Home Medication ?Medication ?Instructions ?Recorded multivitamin 1 cap PO DAILY 07/14/17 cholecalciferol (vitamin D3) 25 1,000 unit PO DAILY 11/21/17 mcg (1,000 unit) capsule (Vitamin D3) nystatin 100,000 unit/gram topical 1 applic topical BID PRN #60 grams 06/19/18 powder acetaminophen 500 mg tablet 1,000 mg (2 x 500 mg) PO Q8H PRN 04/03/19 pain #90 tabs propylene glycol 0.6 % eye drops 1 drp ophthalmic (eye) TID PRN 06/08/20 (Systane Complete) Lacto-B.anim,bifid-inulin 50 1 cap PO DAILY 10/27/22 billion cell-50 mg capsule,delay release (Fortify Probiotic) paroxetine HCl 20 mg tablet 20 mg PO DAILY #90 tabs 09/19/23 lansoprazole 30 mg capsule,delayed 30 mg PO DAILY #90 caps 03/07/24 release (Prevacid) atorvastatin 10 mg tablet 10 mg PO DAILY #90 tabs 03/11/24 Myrbetriq 50 mg tablet,extended 50 mg PO DAILY #30 tabs 04/04/24 release (mirabegron) ceftriaxone 1 gram solution for 1 g IM ONCE #1 ea 04/08/24 injection Current Visit Medications: Current Medications Generic Name Dose Route Start Last Admin Trade Name Freq PRN Reason Stop Dose Admin IV Miscellaneous Supplies 1 each 04/08/24 14:30 Iv Access-Emergency Dept IV DIRECTED LILY Sodium Chloride 0 ml 04/08/24 14:20 Normal Saline Flush 10 Ml Syr IVP PRN PRN Sodium Chloride 0 ml 04/08/24 20:00 Normal Saline Flush 10 Ml Syr IVP BID LILY Sodium Chloride 0 ml 04/08/24 14:20 Normal Saline 10 Ml Vial IJ DIRECTED PRN PFSH Active Problems Active Problems: Problem Status Onset Code Edema Acute R60.9 Abscess Acute L02.91 Leg abscess Acute L02.419 Cramping of feet Acute R25.2 Contusion Acute T14.8XXA Urinary retention with incomplete bladder emptying Acute R33.9 Contusion of right knee Acute S80.01XA Globus sensation Acute R09.A2 Excessive cerumen in both ear canals Acute H61.23 Change in voice Acute R49.9 Hoarseness of voice Acute R49.0 Greater trochanteric pain syndrome Acute M25.559 Neuropathy Acute G62.9 Dysphagia Acute R13.10 Hallux rigidus of right foot Acute M20.21 Bunion, right foot Acute M21.611 Asymmetrical sensorineural hearing loss Acute H90.3 Pes anserinus bursitis of right knee Acute M70.51 Stenosis, spinal, lumbar Acute M48.061 Right hip pain Acute M25.551 Urinary incontinence Acute R32 Essential hypertension Chronic 02/12/13 I10 Depressive disorder Chronic F32.9 Serrated adenoma of colon Acute D12.6 Diverticulosis of colon without diverticulitis Chronic K57.30 DNR (do not resuscitate) Acute Z66 Medical History Medical History Numbness of face Lumbosacral spondylosis without myelopathy Decreased hearing Colon polyp, hyperplastic (~10/2022) Grief Pain, foot Nail dystrophy Tendinitis of ankle Ankle pain Elevated blood pressure reading Skin tag, acquired Right knee pain Dysplastic colon polyp cecum- low grade. Repeat CE October 2021 Adenomatous colon polyp cecum 06/08 Diverticula of colon Hiatal hernia Chronic GERD RLQ abdominal pain Trochanteric bursitis, right hip Injection: 03/05/2021 Bilateral thumb pain Right knee injury Constipation Stress at home Vertigo Wound cellulitis Epigastric abdominal pain Chest wall pain, chronic Myalgia Hematoma of eyelid Hypertension History of skin cancer Headache Primary osteoarthritis of left knee Granulomatous disorder of the skin and subcutaneous tissue, unspecified Postoperative examination Spinal stenosis Skin cancer, basal cell Malignant neoplasm of urinary bladder Abnormal weight loss (01/30/17) Anemia (12/26/11) Arthritis of left hip (08/02/16) Chronic cystitis Cough (08/14/12) Epicondylitis Gastritis Giardiasis Hematuria Herpes zoster Pt. states years ago Hypokalemia (12/26/11) Abdominal or pelvic swelling, mass, or lump, left lower quadrant (03/16/01) Short of breath on exertion (07/17/14) Sinusitis Upper airway resistance syndrome Vulvar pain (09/16/11) Kdwru-3-ebeqadtqwah deficiency Shoulder pain Chronic maxillary sinusitis Right sided facial pain Vitamin D deficiency (12/28/11) Trigeminal neuralgia (09/17/14) Positive ASH (antinuclear antibody) (06/07/16) Osteopenia dexa 2003 showing T-scores -1.6, -0.7, 1.1 Peripheral neuropathy (09/21/15) Neck pain (05/31/16) Lethargy (05/11/15) Lumbago MRI in 1995 showed DJD and DDD. No stenosis or herniation.; 02/22/10-steroid inj. into the greater trochanteric bursa-Dr. 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 visual changes, repeated 2005 was normal; visual speech changes-MRI/MRA 2004 showed small vessel disease in the adali ? of ischemic disea Carotid artery stenosis MRI in 2004 shows carotid on the left 50-60% occlusion. vision and speech changes. Balance disorder (08/31/17) Asthma, exercise induced (10/03/13) Aphthous ulcer (01/30/14) Anxiety Lumbar back pain with radiculopathy affecting right lower extremity Spondylosis of lumbar region without myelopathy or radiculopathy Surgical History Surgical History S/P knee replacement 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 Hunter History of right shoulder replacement Hx of shoulder replacement [facility] [place] Dr. Segundo. August 2018 History of esophagogastroduodenoscopy (~05/21/21) 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 MCLAUGHLIN LEFT total hip not right. Tonsillectomy and adenoidectomy as a small child Rotator Cuff Repair 12/01/17 (R) Nita EGD - MAC (~11/2023) Dilation and curettage 1975 1981 Colonoscopy - MAC (~10/28/22) 2000 Cholecystectomy (~1980) Bursectomy Left trochanteric Bladder Surgery (~1994) resection Appendectomy (04/17/80) Tobacco Smoking/Tobacco Use Status: Former Tobacco Use Passive smoking exposure: Yes Second hand exposure: Yes Alcohol Alcohol Intake: never Substance Use Substance use: Never Substance use type: does not use Vital Signs and Lab Results Lab Results Blood Type / Crossmatch: No Data to Display Complete Blood Count: White Blood Count 7.10 10^3/uL (4.4-10.8) 04/01/24 11:36 Red Blood Count 3.98 10^6/uL (3.93-5.22) 04/01/24 11:36 Hemoglobin 12.1 g/dL (11.2-15.7) 04/01/24 11:36 Hematocrit 36.6 % (36.0-46.0) 04/01/24 11:36 Platelet Count 204 10^3/uL (130-400) 04/01/24 11:36 Complete Metabolic Panel: C-Reactive Protein < 0.50 mg/dL (<or=0.5) 04/01/24 11:36 Liver Function Panel: No Data to Display Coagulation Panel: No Data to Display Cardiac Panel: No Data to Display Arterial Blood Gas: No Data to Display Venous Blood Gas: No Data to Display Pancreas Panel: No Data to Display Thyroid Panel: No Data to Display Infectious Disease: No Data to Display Blood Cultures: No Data to Display Toxicology Panel: No Data to Display Imaging and Studies Imaging and Studies Study information below may be from another EMR and interpreted by another provider. Please see original notes in EMR for more complete details. Stress Test Summary: 05/17/2017 - Normal study after maximal exercise. - Low risk of cardiac events. Summary: 1. Myocardial perfusion imaging: No myocardial perfusion defects noted. 2. The calculated left ventricular ejection fraction after stress: 70%. LV global systolic function is normal. No left ventricular regional motion abnormality. Echocardiogram Summary: Date of Exam: 08/14/14Sex: F Impressions: Normal study. Summary: 1. Left ventricle: The cavity size was normal. Wall thickness was normal. Systolic function was normal. The estimated ejection fraction was 60-65%. Wall motion was normal; there were no regional wall motion abnormalities. 2. Aortic valve: Trileaflet; normal thickness leaflets. 3. Mitral valve: Structurally normal valve. 4. Left atrium: The atrium was normal in size. 5. Right ventricle: The cavity size was normal. Wall thickness was normal. Systolic function was normal. 6. Tricuspid valve: Structurally normal valve. 7. Pulmonary arteries: Pulmonary systolic pressure was within the normal range. Carotid Artery Summary:: Date of Exam: 05/13/15 CONCLUSION: No evidence of a hemodynamically significant carotid stenosis. Pulmonary Function Summary: 09/28 Mild obstructive airways disease with significant bronchodilator response. Anesthesia Assessment and Plan Anesthesia History Personal History: No History of Anesthesia Complications Family History: No Family History of Anesthesia Complications Exercise Tolerance Exercise Tolerance: Metabolic Equivalents>4 Pertinent Negatives Pertinent Negatives: No Symptoms of GERD (With Rx) Cardiac & Pulmonary Exam Cardiac Exam: Normal S1/S2 Heart Sounds Pulmonary Exam: Clear Bilateral Breath Sounds Implantable Cardiac Device Does patient have a Pacemaker or an ICD?: No Airway Exam Known Difficult Airway: No Mallampati Class: 2 Mouth Opening: Normal (> 3cm) Thyromental Distance: Less than 3 cm Neck Range of Motion: Full ROM Neck Circumference: Normal Teeth Condition: Normal Dentition ASA Classification ASA Score: ASA 3 Emergency Case?: No NPO Status NPO Status: NPO Clears >2 hours, Solids >8 hours Anesthesia Plan Resuscitation Status: Full Code Anesthesia Technique: General Anesthesia Airway Planned: LMA Monitors Used: Standard Monitors
[2024-04-09] MEDS: Lactated Ringers 1,000 ML 50 ML IV (09:45)
[2024-04-09] MEDS: Lidocaine 1% Pres-Free 30 ML VIAL (09:55)
[2024-04-09] MEDS: Bupivacaine 0.5% Pres-Free 30 ML VIAL (09:55)
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
--- NOTE | 2024-04-09 10:31 | W.PM.DS.N ---
Date of service: 04/09/24 Time of Service: 10:31 DS: Diagnosis Discharge Diagnosis (1) Leg abscess: Status: Acute (2) Traumatic open wound of left lower leg with infection: Status: Acute Discharge Plan Disposition Patient Disposition: Home Condition: Improving Discharge Details Reason For Visit: Incision and drainage of abscess Admit Date/Time: 04/09/24 08:45 Admit Provider: Nury Arenas Attending Provider: Nury Arenas Primary Care Provider: [facility] Course Hospital Course: Patient is here today for incision and drainage of abscess and surgery she is being discharged home today Home Meds and New Rx's Prescriptions: New tramadol 50 mg tablet 50 mg PO Q6H PRNQty: 14 0RF Continued Systane Complete 0.6 % drops 1 drp OP TID PRN paroxetine HCl 20 mg tablet 20 mg PO DAILY Qty: 90 4RF mirabegron [Myrbetriq] 50 mg tablet extended release 24 hr 50 mg PO DAILY Qty: 30 12RF Rx Instructions: GIO nystatin 100,000 unit/gram powder 1 applic Topical BID PRNQty: 60 Rx Instructions: 1-3 GM BID lansoprazole [Prevacid] 30 mg capsule,delayed release(DR/EC) 30 mg PO DAILY Qty: 90 6RF atorvastatin 10 mg tablet 10 mg PO DAILY Qty: 90 4RF acetaminophen 500 mg tablet 1,000 mg PO Q8H PRN (Reason: pain) Qty: 90 3RF Fortify Probiotic 50 billion cell-50 mg Capsule,Delayed Release(Dr/Ec) 1 cap PO DAILY multivitamin 1 EACH capsule 1 cap PO DAILY cholecalciferol (vitamin D3) [Vitamin D3] 1,000 UNIT capsule 1,000 unit PO DAILY Discontinued ceftriaxone 1 gram recon soln 1 g IM ONCE Qty: 1 0RF Discharge Instructions Additional Instructions: - elevate left leg =ice -Can be up walking for activities of daily living. When you are just sitting elevate your leg -Tylenol 1000 mg every 8 hours. Take scheduled for the first 72 hours -Ultram 50 mg every 6 hours as needed for breakthrough pain/pain that is not resolved with Tylenol. Ultram is a mild narcotic -All narcotics can make you very constipated. If you need to take a dose of MiraLAX daily. -Take a dose of MiraLAX on Tuesday 04/10. Anesthesia makes everybody very constipated. -Follow-up in surgical clinic with Dr. Arenas on 04/11 at 930 to change the dressing -Cover dressing to shower -Diet as tolerated -Take all your medications today and tomorrow as you normally would. -No further antibiotics required. Activity:: ssee above Equipment/Supplies:: No Equipment Needed Diet:: As Tolerated Discharge Orders Discharge Orders: Discharge Order (Routine); Ordered 04/09/24 Ordered By: Nury Arenas DS: Summary Time Spent with Patient providing and/or coordinating discharge services: Less than 30 minutes Status at Discharge Functional status at discharge: independent ambulation Overall status at discharge: patient is progressing back to baseline Mental Status: mental status grossly normal Speech and Movement: speech and movement normal Mood: congruent mood Affect: normal affect Quality:SDOH Health Related Social Needs: No Data to Display Exam Psych Mental Status: mental status grossly normal Speech and Movement: speech and movement normal Mood: congruent mood Affect: normal affect DS: Data Vitals/I&O Vitals and I&O: Vital Signs Temperature 36.7 C 04/09/24 09:29 Temperature Source Temporal Artery Scan 04/09/24 09:29 Pulse 83 04/09/24 09:29 Respiratory Rate 17 04/09/24 09:29 Blood Pressure 158/76 H 04/09/24 09:29 Pulse Oximetry 95 04/09/24 09:29 Oxygen Delivery Method Room Air 04/09/24 09:29 Oxygen Flow Rate 0 04/09/24 09:29 Pain Level 0 04/09/24 09:29 Intake & Output 04/08/24 04/08/24 04/09/24 11:59 23:59 11:59 Intake Total 200 / 200 Balance 200 / 200 Weight 68.8 kg Intake: IV 200 / 200 PFSH All Active Problems (Updated 04/09/24 @ 10:32 by Nury Arenas DO) Traumatic open wound of left lower leg with infection (Acute) Edema (Acute) Abscess (Acute) Leg abscess (Acute) Cramping of feet (Acute) Contusion (Acute) Urinary retention with incomplete bladder emptying (Acute) Contusion of right knee (Acute) Globus sensation (Acute) Excessive cerumen in both ear canals (Acute) Change in voice (Acute) Hoarseness of voice (Acute) Greater trochanteric pain syndrome (Acute) Neuropathy (Acute) Dysphagia (Acute) Hallux rigidus of right foot (Acute) Bunion, right foot (Acute) Asymmetrical sensorineural hearing loss (Acute) Pes anserinus bursitis of right knee (Acute) Stenosis, spinal, lumbar (Acute) Right hip pain (Acute) Urinary incontinence (Acute) Essential hypertension (Chronic 02/12/13) Depressive disorder (Chronic) Serrated adenoma of colon (Acute) Diverticulosis of colon without diverticulitis (Chronic) DNR (do not resuscitate) (Acute) Medical History Numbness of face Lumbosacral spondylosis without myelopathy Decreased hearing Colon polyp, hyperplastic (~10/2022) Grief Pain, foot Nail dystrophy Tendinitis of ankle Ankle pain Elevated blood pressure reading Skin tag, acquired Right knee pain Dysplastic colon polyp cecum- low grade. Repeat CE October 2021 Adenomatous colon polyp cecum 06/08 Diverticula of colon Hiatal hernia Chronic GERD RLQ abdominal pain Trochanteric bursitis, right hip Injection: 03/05/2021 Bilateral thumb pain Right knee injury Constipation Stress at home Vertigo Wound cellulitis Epigastric abdominal pain Chest wall pain, chronic Myalgia Hematoma of eyelid Hypertension History of skin cancer Headache Primary osteoarthritis of left knee Granulomatous disorder of the skin and subcutaneous tissue, unspecified Postoperative examination Spinal stenosis Skin cancer, basal cell Malignant neoplasm of urinary bladder Abnormal weight loss (01/30/17) Anemia (12/26/11) Arthritis of left hip (08/02/16) Chronic cystitis Cough (08/14/12) Epicondylitis Gastritis Giardiasis Hematuria Herpes zoster Pt. states years ago Hypokalemia (12/26/11) Abdominal or pelvic swelling, mass, or lump, left lower quadrant (03/16/01) Short of breath on exertion (07/17/14) Sinusitis Upper airway resistance syndrome Vulvar pain (09/16/11) Poehp-6-mavagorcbpo deficiency Shoulder pain Chronic maxillary sinusitis Right sided facial pain Vitamin D deficiency (12/28/11) Trigeminal neuralgia (09/17/14) Positive ASH (antinuclear antibody) (06/07/16) Osteopenia dexa 2003 showing T-scores -1.6, -0.7, 1.1 Peripheral neuropathy (09/21/15) Neck pain (05/31/16) Lethargy (05/11/15) Lumbago MRI in 1995 showed DJD and DDD. No stenosis or herniation.; 02/22/10-steroid inj. into the greater trochanteric bursa-Dr. 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 visual changes, repeated 2005 was normal; visual speech changes-MRI/MRA 2004 showed small vessel disease in the adali ? of ischemic disea Carotid artery stenosis MRI in 2004 shows carotid on the left 50-60% occlusion. vision and speech changes. Balance disorder (08/31/17) Asthma, exercise induced (10/03/13) Aphthous ulcer (01/30/14) Anxiety Lumbar back pain with radiculopathy affecting right lower extremity Spondylosis of lumbar region without myelopathy or radiculopathy Surgical History S/P knee replacement 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 Hunter History of right shoulder replacement Hx of shoulder replacement [facility] [place] [place] Dr. Segundo. August 2018 History of esophagogastroduodenoscopy (~05/21/21) 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 MCLAUGHLIN LEFT total hip not right. Tonsillectomy and adenoidectomy as a small child Rotator Cuff Repair 12/01/17 (Alistair Moya EGD - MAC (~11/2023) Dilation and curettage 1975 1981 Colonoscopy - MAC (~10/28/22) 2000 Cholecystectomy (~1980) Bursectomy Left trochanteric Bladder Surgery (~1994) resection Appendectomy (04/17/80) Family History Mother , 89 Essential hypertension Heart disease Hyperlipidemia Stroke Dementia Father Hyevq-0-fiwwhmotjyf deficiency liver Diabetes Asthma Substance use disorder Depression Sister , 54 Guvbw-2-ewwvxbbcqkg deficiency lungs Lung transplanted B/L Hyperlipidemia Essential hypertension Substance use disorder Sister Essential hypertension Hyperlipidemia Asthma A CHILD Maternal Grandfather , 89 Diabetes Essential hypertension Depression Paternal Grandfather Heart disease Asthma Maternal Grandmother , 71 Essential hypertension Hyperlipidemia Stroke Heart disease Substance use disorder Paternal Grandmother , 83 Essential hypertension Heart disease Hyperlipidemia Stroke Daughter No problems noted. Social History Smoking/Tobacco Use Status: Former Tobacco Use tobacco type: cigarettes Quit Date: 04/17/63 Second Hand Exposure: Yes Smoking risk assessment performed?: Yes Alcohol Intake: never Drug use: Never Substance use type: does not use Adopted: No Caregiver/Support person: No Household members: other Details: Grandson Housing: house Number of Children: 1 number of grandchildren: 2 Communication Needs: None Education Level: college Do you need help understanding health information?: Rarely current occupation: retired Pets and animals: No Sexually active: No Do you think of yourself as: straight/heterosexual Current gender identity: female What is your relationship status?: How often do you talk on the phone with friends or family?: three or more times per week How often do you get together with friends or relatives?: three or more times per week How often do you attend baptism or scientology services?: 4 or more times per year Do you belong to any clubs or organized social groups?: no Panel score (0-1 are the most socially isolated patients): 2 What type of physical activity do you participate in: walking, bicycling and regular exercise Duration: 45-60 minutes/day Frequency: daily Elena/Taoism: [employer]ar[employer] Special elena needs: No Seatbelt use: always Helmet use: Yes Helmet use: always 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
--- NOTE | 2024-04-09 11:06 | W.ANESPOSTOP ---
Postoperative Evaluation Date, Time and Location Date Performed: 04/09/24 Time Performed: 11:06 Patient Location: Med/Surg Vital Signs Most Recent Imported Vital Signs: Most Recent Vital Signs Temp Pulse Resp BP Pulse Ox 36.3 C L 60 16 177/68 H 97 04/09/24 10:45 04/09/24 10:45 04/09/24 10:45 04/09/24 10:45 04/09/24 10:45 Pain Score Most Recent Pain Score: Most Recent Pain Score Pain Level 3 04/09/24 10:45 Assessment Mental Status: Awake (Alert & Oriented to Patient Baseline) Airway and Respiratory Function: Patent airway with normal (patient baseline) respiratory exam Cardiovascular Function: Hemodynamically Stable Hydration Status: Adequately Hydrated Nausea & Vomiting: No Nausea or Vomiting Pain: Pt. Denies Any Pain Peripheral Nerve Block: Patient did not receive a nerve block
== END 2024-04-09 14:23 | disposition home or self-care (01) ==
LOC: MS 08:46
PROVIDERS: Admitting Provider Surgery; PCP Family Medicine; Visit Provider Surgery
PROC: (CPT 10060; principal; 2024-04-09 09:00)
DX: L02.416 Cutaneous abscess of left lower limb (principal); L03.116 Cellulitis of left lower limb; G62.9 Polyneuropathy, unspecified; M48.061 Spinal stenosis, lumbar region without neurogenic claudication; S81.802S Unspecified open wound, left lower leg, sequela; X58.XXXS Exposure to other specified factors, sequela; R32 Unspecified urinary incontinence; I10 Essential (primary) hypertension; F32.A Depression, unspecified; K57.30 Diverticulosis of large intestine without perforation or abscess without bleeding; Z66 Do not resuscitate; K21.9 Gastro-esophageal reflux disease without esophagitis; K44.9 Diaphragmatic hernia without obstruction or gangrene; E88.01 Alpha-1-antitrypsin deficiency; C67.9 Malignant neoplasm of bladder, unspecified
CPT/HCPCS: 10060; 87070; 87075; 87205; J0665; J0696; J1100; J2405; J2470; J2704; J3010

== ENCOUNTER → 2024-04-11 09:19 | Outpatient (BNVA) | payer MEDICARE, OTHER, SELFPAY | PROVIDERS: PCP Family Medicine; Referring Provider Family Medicine; Visit Provider Surgery | DX: Z48.817 Encounter for surgical aftercare following surgery on the skin and subcutaneous tissue (principal); L02.416 Cutaneous abscess of left lower limb; L03.116 Cellulitis of left lower limb ==

== ENCOUNTER → 2024-04-15 08:39 | Outpatient (BNVA) | payer MEDICARE, OTHER, SELFPAY | PROVIDERS: PCP Family Medicine; Referring Provider Family Medicine; Visit Provider Surgery | DX: S81.802D Unspecified open wound, left lower leg, subsequent encounter (principal); X58.XXXD Exposure to other specified factors, subsequent encounter | CPT/HCPCS: 11043 ==

== ENCOUNTER → 2024-04-22 08:36 | Outpatient (BNVA) | payer MEDICARE, OTHER, SELFPAY | PROVIDERS: PCP Family Medicine; Referring Provider Family Medicine; Visit Provider Surgery | DX: S80.12XD Contusion of left lower leg, subsequent encounter (principal); S81.802D Unspecified open wound, left lower leg, subsequent encounter; X58.XXXD Exposure to other specified factors, subsequent encounter | CPT/HCPCS: 11043 ==

== ENCOUNTER → 2024-05-06 11:21 | Outpatient (BNVA) | payer MEDICARE, OTHER, SELFPAY | PROVIDERS: PCP Family Medicine; Referring Provider Family Medicine; Visit Provider Surgery | DX: L02.416 Cutaneous abscess of left lower limb (principal); S81.802D Unspecified open wound, left lower leg, subsequent encounter; X58.XXXD Exposure to other specified factors, subsequent encounter; L08.9 Local infection of the skin and subcutaneous tissue, unspecified; I10 Essential (primary) hypertension | CPT/HCPCS: 11042 ==

== ENCOUNTER → 2024-05-17 08:50 | Outpatient (BNVA) | payer MEDICARE, OTHER, SELFPAY | PROVIDERS: PCP Family Medicine; Referring Provider Family Medicine; Visit Provider Urology | DX: R32 Unspecified urinary incontinence (principal) | CPT/HCPCS: 51728; 51784; 51797; 81003 ==

== ENCOUNTER → 2024-05-21 12:55 | Outpatient (BNVA) | payer MEDICARE, OTHER, SELFPAY | PROVIDERS: PCP Family Medicine; Referring Provider Family Medicine; Visit Provider Physical Therapy Assistant | DX: S81.802D Unspecified open wound, left lower leg, subsequent encounter (principal); X58.XXXD Exposure to other specified factors, subsequent encounter | CPT/HCPCS: 99214 ==

== ENCOUNTER → 2024-05-29 09:54 | Outpatient (BNVA) | payer MEDICARE, OTHER, SELFPAY | PROVIDERS: PCP Family Medicine; Referring Provider Family Medicine; Visit Provider Nurse Practitioner Gerontology | DX: N39.41 Urge incontinence (principal) | CPT/HCPCS: 64566 ==

== ENCOUNTER → 2024-06-05 09:52 | Outpatient (BNVA) | payer MEDICARE, OTHER, SELFPAY | PROVIDERS: PCP Family Medicine; Referring Provider Family Medicine; Visit Provider Nurse Practitioner Gerontology | DX: R32 Unspecified urinary incontinence (principal) | CPT/HCPCS: 64566 ==

== ENCOUNTER → 2024-06-05 10:54 | Outpatient (BNVA) | payer MEDICARE, OTHER, SELFPAY | PROVIDERS: PCP Family Medicine; Referring Provider Family Medicine; Visit Provider Physical Therapy Assistant | DX: S81.802D Unspecified open wound, left lower leg, subsequent encounter (principal); X58.XXXD Exposure to other specified factors, subsequent encounter | CPT/HCPCS: 64566; 99213 ==

== ENCOUNTER → 2024-06-11 09:48 | Outpatient (BNVA) | payer MEDICARE, OTHER, SELFPAY | PROVIDERS: PCP Family Medicine; Referring Provider Family Medicine; Visit Provider Urology | DX: N39.41 Urge incontinence (principal) | CPT/HCPCS: 64566 ==

== ENCOUNTER → 2024-06-19 10:35 | Outpatient (BNVA) | payer MEDICARE, OTHER, SELFPAY | PROVIDERS: PCP Family Medicine; Referring Provider Family Medicine; Visit Provider Nurse Practitioner Gerontology | DX: N39.41 Urge incontinence (principal) ==

== ENCOUNTER 2024-06-19 11:47 | Outpatient (CLI) | payer MEDICARE, OTHER, SELFPAY ==
[2024-06-19 11:43] LABS: HCT 38.5 % (36.0-46.0); HGB 12.9 g/dL (11.2-15.7); MCH 30.9 pg (27.0-33.0); MCHC 33.5 % (32.0-36.0); MCV 92 fL (80-95); MPV 9.6 fL (8.0-11.0); Platelet Count 207 10^3/uL (130-400); RBC 4.18 10^6/uL (3.93-5.22); RDW 12.7 % (11.7-14.6)
[2024-06-19 12:49] LABS: ALT 22 U/L (14-59); AST 23 U/L (15-37); Albumin 3.9 g/dL (3.4-5.0); Alkaline Phosphatase 92 U/L (46-116); Anion Gap 6.4 mmol/L (3-11); BUN 15 mg/dL (7-18); Bilirubin, Total 0.36 mg/dL (0.2-1.0); CO2 31.6 mmol/L (21.0-32.0); CREATININE 0.9 mg/dL (0.55-1.02); Calcium 9.6 mg/dL (8.5-10.1); Calculated LDL 59 mg/dL (<100); Chloride 107 mmol/L (98-107); Cholesterol 151 mg/dL (<200); Estimated GFR 64.63 (mL/min/1.73m2); Ferritin 78 ng/mL (8-252); Glucose 99 mg/dL (74-106); HDL Cholesterol 71 mg/dL (>or=50); Potassium 3.9 mmol/L (3.5-5.1); Sodium 145 mmol/L (136-145); TSH (W/Ref FT4) 1.69 uIU/mL (0.36-3.74); Total Protein 7.4 g/dL (6.4-8.2); Triglyceride 108 mg/dL (<150); Vitamin B12 410 pg/mL (193-986)
[2024-06-19 13:02] LABS: Iron 91 ug/dL (50-170)
== END 2024-06-19 11:48 | disposition home or self-care (01) ==
LOC: LBO 11:49
PROVIDERS: PCP Family Medicine; Visit Provider Family Medicine
DX: E03.9 Hypothyroidism, unspecified (principal); I10 Essential (primary) hypertension; D64.9 Anemia, unspecified; R51.9 Headache, unspecified
CPT/HCPCS: 36415; 64566; 80053; 80061; 85027; 82607; 82728; 83540; 84443

== ENCOUNTER 2024-06-21 00:22 | Outpatient (CLI) | payer MEDICARE, OTHER, SELFPAY ==
--- NOTE | 2024-06-21 07:30 | DI.RAD_ITS ---
Exam(s) XR HIP RT COMPLETE AP PELVIS EXAM: XR HIP RT COMPLETE AP PELVIS CLINICAL HISTORY: r hip pain,fall,m25.559,w19.xxxa. TECHNIQUE: 2D digital imaging was performed. Two views COMPARISON: CR XR HIP RT COMPLETE AP PELVIS from 07/31/2023 FINDINGS: BONES: No acute fracture is present. No bony destructive lesion is seen. JOINTS: No dislocation present. There are mild degenerative changes of the right hip, with mild favian nt space narrowing mild acetabular spurring. The left hip prosthesis appears unchanged. There are m ild degenerative changes of the SI joints and pubic symphysis. Are more severe wound degenerative ch anges with severe disc space narrowing and prominent endplate osteophytes in the lumbar spine. SOFT TISSUE: Normal. IMPRESSION: Mild degenerative changes of the right hip. DATA REPOSITORY: RADIATION DOSE DELIVERED:
== END 2024-06-21 00:42 ==
LOC: DI 00:22
PROVIDERS: PCP Family Medicine; Visit Provider Family Medicine
DX: W19.XXXA Unspecified fall, initial encounter (principal); M16.11 Unilateral primary osteoarthritis, right hip
CPT/HCPCS: 73502

== ENCOUNTER → 2024-06-26 09:51 | Outpatient (BNVA) | payer MEDICARE, OTHER, SELFPAY | PROVIDERS: PCP Family Medicine; Visit Provider Nurse Practitioner Gerontology | DX: N39.41 Urge incontinence | CPT/HCPCS: 64566 ==

== ENCOUNTER 2024-07-02 00:33 | Outpatient (CLI) | payer MEDICARE, OTHER, SELFPAY ==
--- NOTE | 2024-07-02 06:45 | DI.MRI_ITS ---
Exam(s) MR BRAIN WO EXAM: MR BRAIN WO CLINICAL HISTORY: fell and hit head, severe pain,head injury,w19.xxxa,s09.90xa TECHNIQUE: Multiplanar multisequence MRI of the brain was performed. COMPARISON: MR MR IAC BRAIN WO/W from 01/27/2023 FINDINGS: VENTRICLES AND EXTRA AXIAL SPACES: Normal in size and morphology for the patient's age. MIDLINE SHIFT: None. CEREBRAL PARENCHYMA: No focus of restricted diffusion to suggest acute infarct. No space-occupying le mat identified. Mild atrophy consistent with the patient's age. Stable moderate foci of high signal in the white matter consistent with sequela of chronic microvascular disease. BRAINSTEM/CEREBELLUM: Normal. VISUALIZED PARANASAL SINUSES: Clear. MASTOIDS:Clear. Vasculature: Normal flow void. PITUITARY GLAND: Unremarkable. ORBITS: Unremarkable. IMPRESSION: Stable white matter changes. No acute abnormality. DATA REPOSITORY:
== END 2024-07-02 00:53 ==
LOC: DI 00:33
PROVIDERS: PCP Family Medicine; Visit Provider Family Medicine
DX: W19.XXXA Unspecified fall, initial encounter (principal); S09.90XA Unspecified injury of head, initial encounter
CPT/HCPCS: 70551

== ENCOUNTER → 2024-07-03 10:03 | Outpatient (BNVA) | payer MEDICARE, OTHER, SELFPAY | PROVIDERS: PCP Family Medicine; Visit Provider Nurse Practitioner Gerontology | DX: N39.41 Urge incontinence (principal) | CPT/HCPCS: 64566 ==

== ENCOUNTER → 2024-07-04 10:45 | Outpatient (BNVA) | payer MEDICARE, OTHER, SELFPAY | PROVIDERS: PCP Family Medicine; Visit Provider Physical Therapy Assistant | DX: Z51.89 Encounter for other specified aftercare (principal); S81.802A Unspecified open wound, left lower leg, initial encounter; X58.XXXA Exposure to other specified factors, initial encounter; L08.9 Local infection of the skin and subcutaneous tissue, unspecified | CPT/HCPCS: 99213 ==

== ENCOUNTER 2024-07-04 11:24 | Outpatient (REF) | payer MEDICARE, OTHER, SELFPAY | END 2024-07-04 11:25 | disposition home or self-care (01) | LOC: LBN 11:24 | PROVIDERS: PCP Family Medicine; Visit Provider Physical Therapy Assistant | DX: S81.802A Unspecified open wound, left lower leg, initial encounter (principal); L08.9 Local infection of the skin and subcutaneous tissue, unspecified; Z51.89 Encounter for other specified aftercare | CPT/HCPCS: 87077; 87070; 87186; 87205 ==

== ENCOUNTER 2024-07-04 13:23 | Outpatient (CLI) | payer MEDICARE, OTHER, SELFPAY ==
--- NOTE | 2024-07-04 14:30 | DI.RAD_ITS ---
Exam(s) XR TIB/FIB LT EXAM: XR TIB/FIB LT CLINICAL HISTORY: Lower leg bone pain, near chronic wound, T14.8XXA. TECHNIQUE: 2D digital imaging was performed of the left tibia and fibula. Two images were obtained. AP and lateral views were obtained. COMPARISON: CR XR STANDING ALIGNMENT from 04/22/2019 CR XR KNEE LT 2V AP,LAT from 03/07/2024 FINDINGS: BONES: No acute fracture is present. No bony destructive lesion is seen. Moderate degenerative change s are seen in the knee involving all 3 joint compartments. SOFT TISSUE: Normal. IMPRESSION: Unremarkable radiographs of the left tibia and fibula. No evidence to suggest osteomyelitis. DATA REPOSITORY: RADIATION DOSE DELIVERED:
== END 2024-07-04 13:43 ==
LOC: DI 13:27
PROVIDERS: PCP Family Medicine; Visit Provider Physical Therapy Assistant
DX: T14.8XXA Other injury of unspecified body region, initial encounter (principal)
CPT/HCPCS: 99213; 73590

== ENCOUNTER → 2024-07-09 08:50 | Outpatient (BNVA) | payer MEDICARE, OTHER, SELFPAY | PROVIDERS: PCP Family Medicine; Visit Provider Nurse Practitioner Gerontology | DX: N39.41 Urge incontinence (principal); N36.42 Intrinsic sphincter deficiency (ISD) | CPT/HCPCS: 64566 ==

== ENCOUNTER → 2024-07-17 09:59 | Outpatient (BNVA) | payer MEDICARE, OTHER, SELFPAY | PROVIDERS: PCP Family Medicine; Visit Provider Nurse Practitioner Gerontology | DX: N39.41 Urge incontinence (principal); N36.42 Intrinsic sphincter deficiency (ISD) | CPT/HCPCS: 64566 ==

== ENCOUNTER 2024-07-23 08:30 | Outpatient (CLI) | payer MEDICARE, OTHER, SELFPAY ==
--- NOTE | 2024-07-23 08:15 | DI.RAD_ITS ---
Exam(s) XR LUMBAR SPINE COMPLETE EXAM: XR LUMBAR SPINE COMPLETE CLINICAL HISTORY: FALL W19.XXXA. TECHNIQUE: 2D digital imaging was performed of the lumbar spine. Five images were obtained. AP, la teral, right oblique, left oblique and L5-S1 spot views were obtained. COMPARISON: CR XR LUMBAR SPINE COMPLETE from 08/09/2022 FINDINGS: BONES: No fracture or destructive lesion. There are endplate osteophytes throughout the lumbar spine. Degenerative changes of the facets are seen at L5-S1. The bones are osteopenic. A left total hip a rthroplasty is partially visualized. DISKS: There is disc space narrowing at all levels of the lumbar spine. ALIGNMENT: Lumbar spinal alignment is within normal limits. No spondylolysis or spondylolisthesis. SOFT TISSUE: Surgical clips are seen in the left upper right upper quadrant of the abdomen. There is of a large amount of stool throughout the colon which can reflect constipation. IMPRESSION: No acute fracture or subluxation in the lumbar spine. DATA REPOSITORY: RADIATION DOSE DELIVERED:
--- NOTE | 2024-07-23 08:15 | DI.RAD_ITS ---
Exam(s) XR RIBS LT W PA LAT CHEST EXAM: XR RIBS LT W PA LAT CHEST CLINICAL HISTORY: FALL W19.XXXA TECHNIQUE: 2D digital imaging was performed. Four images are obtained. COMPARISON: CR,RF RF BARIUM SWALLOW from 07/31/2023 FINDINGS: MEDIASTINUM: Normal. HEART: Normal. PULMONARY VASCULATURE: Normal. LUNGS: Clear. PLEURAL SPACE: No pleural effusion or pneumothorax. BONE:Within normal limits for the patient's age. The patient has a right reverse total shoulder arth roplasty. LEFT RIBS: Normal. OTHER FINDINGS:Normal. IMPRESSION: 1. No acute pulmonary findings. 2. Unremarkable left ribs. DATA REPOSITORY: RADIATION DOSE DELIVERED:
--- NOTE | 2024-07-23 08:15 | DI.RAD_ITS ---
Exam(s) XR THORACIC SPINE COMPLETE EXAM: XR THORACIC SPINE COMPLETE CLINICAL HISTORY: FALL W19.XXXA. TECHNIQUE: 2D digital imaging was performed of the thoracic spine. Three views were obtained. AP, swimmer's and lateral views were obtained. COMPARISON: CR XR STANDING ALIGNMENT from 02/01/2019 CR,RF RF BARIUM SWALLOW from 07/31/2023 FINDINGS: BONES: There is no fracture or destructive lesion. Disc space narrowing and osteophytes are seen at m ultiple levels in the thoracic spine. There is stable mild depression of the superior endplate of T7 . The bones are osteopenic. DISKS:Alignment is within normal limits. Interverebral disc spaces are maintained. SOFT TISSUE: Visualized lungs are clear. There are surgical clips in the right upper quadrant of the abdomen likely reflecting prior cholecystectomy. IMPRESSION: No acute fractures or subluxations of the thoracic spine. DATA REPOSITORY: RADIATION DOSE DELIVERED:
--- NOTE | 2024-07-23 08:15 | DI.RAD_ITS ---
Exam(s) XR HIP LT COMPLETE AP PELVIS EXAM: XR HIP LT COMPLETE AP PELVIS CLINICAL HISTORY: FALL W19.XXXA. TECHNIQUE: 2D digital imaging was performed. Five images were obtained. AP pelvis and AP/lateral le ft hip views were obtained. COMPARISON: CR XR HIP RT COMPLETE AP PELVIS from 06/21/2024 FINDINGS: BONES: There are stable post operative changes of a left total hip arthroplasty present. No fracture or dislocation. JOINTS: The orthopedic hardware is in good position. No evidence of hardware loosening. SOFT TISSUE: Normal. IMPRESSION: 1. Stable left total hip arthroplasty. 2. No acute fracture or dislocation. DATA REPOSITORY: RADIATION DOSE DELIVERED:
== END 2024-07-23 08:50 ==
LOC: DI 08:35
PROVIDERS: PCP Family Medicine; Visit Provider Nurse Practitioner Family
DX: W19.XXXA Unspecified fall, initial encounter (principal); M51.369 Other intervertebral disc degeneration, lumbar region without mention of lumbar back pain or lower extremity pain
CPT/HCPCS: 71046; 71100; 72072; 72110; 73502

== ENCOUNTER → 2024-07-24 09:50 | Outpatient (BNVA) | payer MEDICARE, OTHER, SELFPAY | PROVIDERS: PCP Family Medicine; Visit Provider Nurse Practitioner Gerontology | DX: N39.41 Urge incontinence (principal); N36.42 Intrinsic sphincter deficiency (ISD) | CPT/HCPCS: 64566 ==

== ENCOUNTER → 2024-07-26 09:49 | Outpatient (BNVA) | payer MEDICARE, OTHER, SELFPAY | PROVIDERS: PCP Family Medicine; Visit Provider Physical Therapy Assistant | DX: Z51.89 Encounter for other specified aftercare (principal); L08.89 Other specified local infections of the skin and subcutaneous tissue | CPT/HCPCS: 99212 ==

== ENCOUNTER → 2024-07-31 10:02 | Outpatient (BNVA) | payer MEDICARE, OTHER, SELFPAY | PROVIDERS: PCP Family Medicine; Referring Provider Family Medicine; Visit Provider Nurse Practitioner Gerontology | DX: N39.41 Urge incontinence (principal); N36.42 Intrinsic sphincter deficiency (ISD) | CPT/HCPCS: 64566 ==

== ENCOUNTER → 2024-08-14 09:58 | Outpatient (BNVA) | payer MEDICARE, OTHER, SELFPAY | PROVIDERS: PCP Family Medicine; Referring Provider Family Medicine; Visit Provider Nurse Practitioner Gerontology | DX: N39.41 Urge incontinence (principal) | CPT/HCPCS: 64566 ==

== ENCOUNTER → 2024-08-21 09:57 | Outpatient (BNVA) | payer MEDICARE, OTHER, SELFPAY | PROVIDERS: PCP Family Medicine; Visit Provider Nurse Practitioner Gerontology | DX: N36.42 Intrinsic sphincter deficiency (ISD) (principal); N39.41 Urge incontinence | CPT/HCPCS: 64566 ==

== ENCOUNTER 2024-08-27 01:53 | Outpatient (CLI) | payer MEDICARE, OTHER, SELFPAY ==
--- NOTE | 2024-08-27 12:30 | DI.US_ITS ---
Exam(s) US ABDOMEN EXAM: US ABDOMEN CLINICAL HISTORY: abdominal pain, vomiting,R10.9 TECHNIQUE: Ultrasound of complete upper abdomen performed using standard protocol. COMPARISON: CT CT ABDOMEN PELVIS W from 05/04/2021 FINDINGS: There is no ascites evident. LIVER: There are no hepatic lesions evident nor obvious dilatation of intrahepatic ducts. GALLBLADDER/BILIARY: Gallbladder is again noted be surgically absent. The common hepatic duct isnot dilated, measuring 3mm at the level of steven hepatis. PANCREAS: There is no evidence of pancreatic mass nor dilatation of the pancreatic duct. SPLEEN: The spleen is not enlarged and there are no intrasplenic lesions evident. KIDNEYS:Kidneys exhibit normal size with no evidence of solid mass, calculus, nor hydronephrosis. No cortical cysts evident. ABDOMINAL AORTA: There is no evidence of abdominal aortic aneurysm. IVC: Normal diameter where visualized. IMPRESSION: 1. Gallbladder surgically absent. The biliary tree is not dilated 2. No other significant ultrasound findings in the upper abdomen. 3. There is no ascites. DATA REPOSITORY:
--- NOTE | 2024-08-27 12:30 | DI.RAD_ITS ---
Exam(s) XR HIP RT COMPLETE AP PELVIS EXAM: XR HIP RT COMPLETE AP PELVIS CLINICAL HISTORY: fall 08/09 , hip and pelvis pain,w19.XXXA. TECHNIQUE: 2D digital imaging was performed. COMPARISON: CR XR HIP LT COMPLETE AP PELVIS from 07/23/2024 FINDINGS: Two views No evidence of pelvic nor hip fracture. Left hip prosthesis again noted. There is moderate narrowin g of the right hip joint space which appears similar to 07/23/2024. Bone density normal. No osseous lesions. Incidentally noted is chronic disc space narrowing in the lower lumbar spine levels. IMPRESSION: Moderate degenerative changes in the right hip. Appearance is unchanged from 07/23/2024. Left hip prosthesis again noted. DATA REPOSITORY: RADIATION DOSE DELIVERED:
== END 2024-08-27 02:13 ==
LOC: DI 01:53
PROVIDERS: PCP Family Medicine; Visit Provider Family Medicine
DX: R10.9 Unspecified abdominal pain (principal); M16.11 Unilateral primary osteoarthritis, right hip; Z96.642 Presence of left artificial hip joint
CPT/HCPCS: 73502; 76700

== ENCOUNTER → 2024-09-18 09:56 | Outpatient (BNVA) | payer MEDICARE, OTHER, SELFPAY | PROVIDERS: PCP Family Medicine; Referring Provider Family Medicine; Visit Provider Nurse Practitioner Gerontology | DX: N39.41 Urge incontinence (principal); N36.42 Intrinsic sphincter deficiency (ISD) | CPT/HCPCS: 64566 ==

== ENCOUNTER 2024-09-26 10:55 | Outpatient (CLI) | payer MEDICARE, OTHER, SELFPAY ==
--- NOTE | 2024-09-26 10:45 | DI.RAD_ITS ---
Exam(s) XR KNEE RT 3V AP,LAT,TITI EXAM: XR KNEE RT 3V AP,LAT,TITI CLINICAL HISTORY: right knee pain s/p falls in the setting of TKA. TECHNIQUE: 2D digital imaging was performed. COMPARISON: CR XR KNEE LT 2V AP,LAT from 03/07/2024 FINDINGS: 3 views There is knee prosthesis. There is also been patellar resurfacing. Satisfactory position alignment of bones of the prosthesis. There is no fracture or loosening evident. No evidence of osteomyelitis. IMPRESSION: Satisfactory appearance of the components of the knee prosthesis. DATA REPOSITORY: RADIATION DOSE DELIVERED:
== END 2024-09-26 10:56 | disposition home or self-care (01) ==
LOC: DIORS 10:55
PROVIDERS: PCP Family Medicine; Referring Provider Family Medicine; Visit Provider Physician Assistant
DX: M25.561 Pain in right knee (principal); Z96.651 Presence of right artificial knee joint; M16.11 Unilateral primary osteoarthritis, right hip; R29.6 Repeated falls
CPT/HCPCS: 20611; 99213; 73562; J1010

== ENCOUNTER → 2024-10-16 09:47 | Outpatient (BNVA) | payer MEDICARE, OTHER, SELFPAY | PROVIDERS: PCP Family Medicine; Referring Provider Family Medicine; Visit Provider Nurse Practitioner Gerontology | DX: N39.41 Urge incontinence (principal); N36.42 Intrinsic sphincter deficiency (ISD) | CPT/HCPCS: 64566 ==

== ENCOUNTER → 2024-10-25 09:58 | Outpatient (BNVA) | payer MEDICARE, OTHER, SELFPAY | PROVIDERS: PCP Family Medicine; Referring Provider Family Medicine; Visit Provider Physician Assistant | DX: M70.61 Trochanteric bursitis, right hip (principal); R20.2 Paresthesia of skin; R20.0 Anesthesia of skin | CPT/HCPCS: 99213; 20610; J1010 ==

== ENCOUNTER 2024-10-25 13:06 | Emergency (ER) | payer MEDICARE, OTHER, SELFPAY ==
[2024-10-25] VITALS (7 sets, daily range): BP systolic 142–158; BP diastolic 57–80; PULSE 70–89; RESP 12–23; TEMP 36.6; O2SAT 96–98
--- NOTE | 2024-10-25 13:00 | DI.CT_ITS ---
Exam(s) CT BRAIN NECK CTA EXAM: CT BRAIN NECK CTA CLINICAL HISTORY: hand numbness r face numbess. TECHNIQUE: Imaging Protocol: Axial CT angiography was performed with multi- slice acquisition and multi-planar and/or 3D reconstructions. CONTRAST MATERIAL: Intravenous: Omnipaque 350 Contrast volume:structured data in ml COMPARISON: CT CT HEAD FACIAL WO from 12/08/2023 FINDINGS: CTA Neck W: Aortic arch anatomy: The aortic arch anatomy is conventional and there is no significant stenosis at the origin of the great vessels off of the aortic arch. No intimal flap evident. Anterior circulation: Both common carotid arteries ascend with normal luminal diameters. At the level the carotid bulbs and proximal internal carotid arteries there is minimal plaque without hemodynamically significant stenosis evident either side. The internal carotid arteries in the upper neck are patent bilaterally.. Posterior circulation: Both vertebral arteries originate in conventional fashion off of the subclavian arteries and there is no obvious stenosis at the origin of the vertebral arteries. Both vertebral arteries exhibit normal luminal diameters within the foramen transversarium. No evidence of thrombosis nor dissection. Both vertebral arteries contribute to the formation of the basilar artery at the skull base. CTA Brain W: Anterior circulation: Both internal carotid arteries are patent in the skull base-carotid canals as well as within the cavernous sinuses. The supraclinoid aspects of the ICAs are patent. Both A1 segments are patent as are the anterior cerebral arteries and there is no evidence of aneurysm at the level of the anterior communicating artery. Both middle cerebral arteries are patent with no evidence of significant stenosis nor intraluminal thrombus. There also no aneurysms of these vessels. Posterior circulation: Basilar artery ascends without significant stenosis. Distally gives off superior cerebellar arteries. Above this level the terminates as a patent left posterior cerebral artery. The right P1 segment is deficient. The right posterior cerebral artery is predominantly fed by a posterior communicating artery on the right side of the [id number]. There is no evidence of aneurysm at the tip of the basilar artery nor elsewhere in the [id number]. CT BRAIN: There is no evidence of intracranial hemorrhage, mass effect, or shift of midline structures. There are no extra-axial fluid collections. Ventricles are not enlarged or shifted. There is some hypodensity noted in the anterior limb of both internal capsules, probably chronic ischemic. Also mild periventricular hypodensity consistent with chronic small vessel disease. There are no ring enhancing lesions in the brain and no abnormal meningeal enhancement. IMPRESSION: 1. Patent carotid arteries in the neck. No hemodynamically significant stenosis. No dissection 2. Patent vertebral arteries. No significant stenosis. No dissection. 3. Patent intracranial arteries. 4. The right posterior cerebral artery is fed by posterior communicating artery on the right side of the [id number]. 5. Periventricular hypodensity consistent chronic small vessel disease. No obvious acute infarct. No ring enhancing lesions in the brain and no abnormal meningeal enhancement. Report called by myself to ER 10/25/2024 at 1:55 p.m. RADIATION DOSE DELIVERED: 2,033.94mGy.cm Total DLP DATA REPOSITORY: All CT scans at this facility are submitted to the National Radiology Data Registry (NRDR) Dose Index Registry (DIR) with the [employer] ([employer]). RADIATION OPTIMIZATION: All CT scans at this facility use at least one of these dose optimization techniques: automated exposure control; mA and/or kV adjustment per patient size (includes targeted exams where dose is matched to clinical indication); or iterative reconstruction.
--- NOTE | 2024-10-25 13:09 | W.ED.GENAD ---
Discharge Plan Discharge Details Chief Complaint: CVA/TIA Clinical Impression: Numbness on right side Primary Care Provider: Mellissa Garnett ED Provider: Ananth Joseph Home Meds and New Rx's Prescriptions: No Action Systane Complete 0.6 % drops 1 drp OP TID PRN losartan 50 mg tablet 50 mg PO DAILY Qty: 90 4RF Patient Comments: Did not take, reports provider is taking me off that medication 06/14/23 TR sertraline 50 mg tablet 50 mg PO DAILY Qty: 90 4RF nystatin 100,000 unit/gram powder 1 applic Topical BID PRNQty: 60 Rx Instructions: 1-3 GM BID lansoprazole [Prevacid] 30 mg capsule,delayed release(DR/EC) 30 mg PO DAILY Qty: 90 6RF mirtazapine 7.5 mg tablet 7.5 mg PO QHS Qty: 90 4RF atorvastatin 10 mg tablet 10 mg PO DAILY Qty: 90 4RF duloxetine 30 mg capsule,delayed release(DR/EC) 30 mg PO DAILY Qty: 30 5RF acetaminophen 500 mg tablet 1,000 mg PO Q8H PRN (Reason: pain) Qty: 90 3RF Fortify Probiotic 50 billion cell-50 mg Capsule,Delayed Release(Dr/Ec) 1 cap PO DAILY cholecalciferol (vitamin D3) [Vitamin D3] 1,000 UNIT capsule 1,000 unit PO DAILY HPI General Date/Time Provider Initiated Documentation: 10/25/24 13:09. HPI Narrative: MDM This is an overall well-appearing normothermic and not tachycardic 79-year-old female with right-sided numbness and history of hypertension hyperlipidemia concern for the possibility of CVA. Patient was taken intermediately to CT scan after neurological examination. Fortunately her CTA showed no sign of any acute intracranial hemorrhage. No critical stenoses. No clots that would make patient a thrombectomy candidate. Patient was seen by teleneuro. I spoke with Steven and received recommendation for MRI with 3 and 24 mg of aspirin. Patient had a nonischemic twelve-lead ECG with narrow complex normal sinus rhythm. Intervals within normal limits. She had no chest pain to suggest aortic dissection. She was monitored on telemetry and had no dysrhythmias. No tonic-clonic activity to suggest seizure so no indication for EEG. No nuchal rigidity to suggest meningitis so no indication for lumbar puncture. Patient is not confused to suggest encephalitis. I considered sepsis however patient has reassuring normal vital signs and in the absence of fevers I did not feel that he required broad-spectrum antibiotics. Recommendation from neurology was that patient should undergo MRI. If her MRI does not show any acute ischemic stroke then she will be appropriate for discharge with empiric trial of expectant outpatient management. Neurology did not advise aspirin if she had a reassuring MRI 5 PM Patient has a reassuring magnesium level, reassuring base metabolic panel with no ROSSY. Reassuring CBC with no anemia thrombocytopenia nor leukocytosis. Will sign patient out to the oncoming evening provider, Dr. Zaragoza pending MRI results. If MRI is positive she will require hospitalization for further stroke evaluation. I met with the patient. We discussed that if her MRI was negative that she would be safe to follow-up with her primary care provider. If she does not have signs of an acute ischemic stroke on MRI she will not require aspirin on discharge. HPI This is a female with a history of bilateral numbness and tingling in the hands presenting with additional right facial numbness and tingling. The patient was brought in by ambulance. She went to bed feeling normal. Upon waking up on the morning of 10/25/2024, she experienced bilateral numbness and tingling in her hands. She had a physical therapy appointment where an injection was administered in her hip. She kept mentioning the numbness and tingling in her hands, and the therapist recommended a visit to the ER. However, [facility] chose [facility] to [facility]. While waiting at [facility], she began experiencing right facial numbness and tingling around 10 AM. There was no noticeable facial droop, and her speech remained clear. She reports no headaches, nausea, or stomach upset. She is not diabetic. Exam General: Well-appearing in no acute distress speaking in complete sentences. Head: Normocephalic, atraumatic. Eye:[Pupils equal, round reactive to light.] Extraocular eye movements intact. No conjunctival injection. No scleral icterus. Ear, nose, mouth, throat: Grossly normal inspection. Normal voice, handling secretions normally. Neck: Trachea midline. No nuchal rigidity Cardiovascular: Well-perfused distal extremities. Regular rate and rhythm Respiratory: Nonlabored respiration. Clear lungs Gastrointestinal: Nondistended abdomen. Musculoskeletal: No significant lower extremity pitting edema. Moving all 4 extremities spontaneously. Skin: Normal for age and race, grossly normal temperature and turgor. No acute rash. Neurologic: Alert and appropriate. Mild right-sided facial and upper extremity numbness. No dysmetria. No pronator drift. No dysdiadochokinesia. 5 out of 5 bilateral upper and lower extremity strength. Beyond right facial numbness cranial nerves II through XII intact grossly. Psychiatric: Mood and manner are appropriate. Grooming and personal hygiene are appropriate. Related Data Home Medications ?Medication ?Instructions ?Recorded ?Confirmed cholecalciferol (vitamin D3) 25 1,000 unit PO DAILY 11/21/17 10/25/24 mcg (1,000 unit) capsule (Vitamin D3) nystatin 100,000 unit/gram topical 1 applic topical BID PRN #60 grams 06/19/18 10/25/24 powder acetaminophen 500 mg tablet 1,000 mg (2 x 500 mg) PO Q8H PRN 04/03/19 10/25/24 pain #90 tabs propylene glycol 0.6 % eye drops 1 drp ophthalmic (eye) TID PRN 06/08/20 10/25/24 (Systane Complete) Lacto-B.anim,bifid-inulin 50 1 cap PO DAILY 10/27/22 10/25/24 billion cell-50 mg capsule,delay release (Fortify Probiotic) lansoprazole 30 mg capsule,delayed 30 mg PO DAILY #90 caps 03/07/24 10/25/24 release (Prevacid) mirtazapine 7.5 mg tablet 7.5 mg PO QHS #90 tabs 05/01/24 10/25/24 losartan 50 mg tablet 50 mg PO DAILY #90 tabs 06/17/24 10/25/24 atorvastatin 10 mg tablet 10 mg PO DAILY #90 tabs 06/24/24 10/25/24 sertraline 50 mg tablet 50 mg PO DAILY #90 tabs 08/15/24 10/25/24 duloxetine 30 mg capsule,delayed 30 mg PO DAILY #30 caps 09/17/24 10/25/24 release Previous Rx's ?Medication ?Instructions ?Recorded acetaminophen 500 mg tablet 1,000 mg (2 x 500 mg) PO Q8H PRN 04/03/19 pain #90 tabs lansoprazole 30 mg capsule,delayed 30 mg PO DAILY #90 caps 03/07/24 release (Prevacid) mirtazapine 7.5 mg tablet 7.5 mg PO QHS #90 tabs 05/01/24 losartan 50 mg tablet 50 mg PO DAILY #90 tabs 06/17/24 atorvastatin 10 mg tablet 10 mg PO DAILY #90 tabs 06/24/24 sertraline 50 mg tablet 50 mg PO DAILY #90 tabs 08/15/24 duloxetine 30 mg capsule,delayed 30 mg PO DAILY #30 caps 09/17/24 release Allergies Allergy/AdvReac Type Severity Reaction Status Date / Time oxycodone HCl (From Percocet) AdvReac hallucinati Verified 10/25/24 11:54 ons General Stated Complaint: CVA/TIA STEVO: 3 Course Vital Signs Vital signs: Vital Signs Temperature 36.6 C 10/25/24 13:06 Pulse 70 10/25/24 13:06 Respiratory Rate 16 10/25/24 13:06 Blood Pressure 151/80 H 10/25/24 13:06 Pulse Oximetry 98 10/25/24 13:06 Temperature 36.6 C 10/25/24 13:06 Pulse 70 10/25/24 13:06 Respiratory Rate 16 10/25/24 13:06 Blood Pressure 151/80 H 10/25/24 13:06 Pulse Oximetry 98 10/25/24 13:06 Pain Level 0 10/25/24 13:06 Medical Decision Making Quality:SDOH Health Related Social Needs: Health related social needs lonely/isolated PFSH All Active Problems (Updated 10/25/24 @ 15:52 by Ananth Joseph MD) Numbness on right side (Acute) Trochanteric bursitis, right hip (Acute) Injection: 10/25/2024; 03/05/2021 Arthritis of right hip (Acute) Hip pain (Acute) Head injury due to trauma (Acute) Traumatic hematoma of lower leg with infection (Acute) Traumatic open wound of left lower leg with infection (Acute) Edema (Acute) Leg abscess (Acute) Cramping of feet (Acute) Urinary retention with incomplete bladder emptying (Acute) Globus sensation (Acute) Excessive cerumen in both ear canals (Acute) Change in voice (Acute) Hoarseness of voice (Acute) Greater trochanteric pain syndrome (Acute) Neuropathy (Acute) Dysphagia (Acute) Hallux rigidus of right foot (Acute) Bunion, right foot (Acute) Asymmetrical sensorineural hearing loss (Acute) Pes anserinus bursitis of right knee (Acute) Stenosis, spinal, lumbar (Acute) Right hip pain (Acute) Urinary incontinence (Acute) Essential hypertension (Chronic 02/12/13) Depressive disorder (Chronic) Serrated adenoma of colon (Acute) Diverticulosis of colon without diverticulitis (Chronic) DNR (do not resuscitate) (Acute) Medical History Contusion Numbness of face Lumbosacral spondylosis without myelopathy Decreased hearing Colon polyp, hyperplastic (~10/2022) Grief Pain, foot Nail dystrophy Tendinitis of ankle Ankle pain Elevated blood pressure reading Skin tag, acquired Right knee pain Dysplastic colon polyp cecum- low grade. Repeat CE October 2021 Adenomatous colon polyp cecum 06/08 Diverticula of colon Hiatal hernia Chronic GERD RLQ abdominal pain Trochanteric bursitis, right hip Injection: 03/05/2021 Bilateral thumb pain Right knee injury Constipation Stress at home Vertigo Wound cellulitis Epigastric abdominal pain Chest wall pain, chronic Myalgia Hematoma of eyelid Hypertension History of skin cancer Headache Primary osteoarthritis of left knee Granulomatous disorder of the skin and subcutaneous tissue, unspecified Postoperative examination Spinal stenosis Skin cancer, basal cell Malignant neoplasm of urinary bladder Abnormal weight loss (01/30/17) Anemia (12/26/11) Arthritis of left hip (08/02/16) Chronic cystitis Cough (08/14/12) Epicondylitis Gastritis Giardiasis Hematuria Herpes zoster Pt. states years ago Hypokalemia (12/26/11) Abdominal or pelvic swelling, mass, or lump, left lower quadrant (03/16/01) Short of breath on exertion (07/17/14) Sinusitis Upper airway resistance syndrome Vulvar pain (09/16/11) Cnuuy-[id number] deficiency Shoulder pain Chronic maxillary sinusitis Right sided facial pain Vitamin D deficiency (12/28/11) Trigeminal neuralgia (09/17/14) Positive ASH (antinuclear antibody) (06/07/16) Osteopenia dexa 2003 showing T-scores -1.6, -0.7, 1.1 Peripheral neuropathy (09/21/15) Neck pain (05/31/16) Lethargy (01/25/16) Lumbago MRI in 1995 showed DJD and DDD. No stenosis or herniation.; 02/22/10-steroid inj. into the greater trochanteric bursa-Dr. 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 visual changes, repeated 2005 was normal; visual speech changes-MRI/MRA 2004 showed small vessel disease in the adali ? of ischemic disea Carotid artery stenosis MRI in 2004 shows carotid on the left 50-60% occlusion. vision and speech changes. Balance disorder (08/31/17) Asthma, exercise induced (10/03/13) Aphthous ulcer (01/30/14) Anxiety Lumbar back pain with radiculopathy affecting right lower extremity Spondylosis of lumbar region without myelopathy or radiculopathy Surgical History S/P knee replacement 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 Hunter History of right shoulder replacement Hx of shoulder replacement [facility] Dr. Segundo. August 2018 History of esophagogastroduodenoscopy (~05/21/21) 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 MCLAUGHLIN LEFT total hip not right. Tonsillectomy and adenoidectomy as a small child Rotator Cuff Repair 12/01/17 (RSalinas Moya EGD - MAC (~11/2023) Dilation and curettage 1975 1981 Colonoscopy - MAC (~10/28/22) 2000 Cholecystectomy (~1980) Bursectomy Left trochanteric Bladder Surgery (~1994) resection Appendectomy (04/17/80) Family History Mother , age 89 Essential hypertension Heart disease Hyperlipidemia Stroke Dementia Father , age 57 Bvexk-1-[id number] deficiency liver Diabetes Asthma Depression Sister , age 54 Dzwiy-[id number]-govlyervdsr deficiency lungs Lung transplanted B/L Hyperlipidemia Essential hypertension Sister Essential hypertension Hyperlipidemia Asthma A CHILD Maternal Grandfather , age 89 Diabetes Essential hypertension Depression Paternal Grandfather , age 76 Heart disease Asthma Maternal Grandmother , age 71 Essential hypertension Hyperlipidemia Stroke Heart disease Substance use disorder Paternal Grandmother , age 83 Essential hypertension Heart disease Hyperlipidemia Stroke Social History Smoking/Tobacco Use Status: Former Tobacco Use tobacco type: cigarettes Quit Date: 04/17/63 Second Hand Exposure: Yes Smoking risk assessment performed?: Yes Alcohol Intake: never Details: non-alcholic wine Drug use: Never Substance use type: does not use Adopted: No Caregiver/Support person: No Household members: other Details: Grandson Housing: house Number of Children: 1 number of grandchildren: 2 Communication Needs: Hard of Hearing Education Level: college Details: 3 years Do you need help understanding health information?: Rarely current occupation: retired Pets and animals: No Sexually active: No Do you think of yourself as: straight/heterosexual Current gender identity: female What is your relationship status?: How often do you talk on the phone with friends or family?: three or more times per week How often do you get together with friends or relatives?: three or more times per week How often do you attend gnosticist or anabaptist services?: 4 or more times per year Do you belong to any clubs or organized social groups?: no Panel score (0-1 are the most socially isolated patients): 2 What type of physical activity do you participate in: decline to answer Duration: 15-30 minutes/day Frequency: daily Elena/Confucianist: Sabianist Special elena needs: No Agree to transfusion: Yes (if need one) Seatbelt use: always Helmet use: Yes Helmet use: always Drive intox or ride w/intox truck driver salesperson: No Working smoke detector in home: Yes Carbon monox detector in home: Yes Firearms in home: Yes Firearms unloaded and locked: Yes Do you feel safe at home: Yes Victim of physical abuse: No Victim of emotional abuse: No Victim of sexual abuse: No Would you like helpful sources: No
[2024-10-25] MEDS: Omnipaque 350 MG/ML 500 ML BTL-Imaging package 70 ML IJ (13:15)
[2024-10-25] MEDS: Normal Saline - Diluent 50 ML VIAL IJ (13:16)
--- NOTE | 2024-10-25 13:30 | RT.EKG_ITS ---
APPROVED REPORT Exam: Resting ECG Reason for Exam: Hand numbness Patient Location: E HR:78 bpm ECG Measurements Heart Rate 78 AXIS WV 166 P 62 QRSd 87 QRS 25 QT 370 T 60 QTc 423 Conclusion Sinus rhythm...normal P axis, V-rate 60- 99 No Occlusion DE
[2024-10-25 13:43] LABS: Abs Immature Grans 0.01 10^3/uL (0.0-0.06); HCT 35.2 % (36.0-46.0); HGB 11.8 g/dL (11.2-15.7); Immature Grans % 0.1 %; MCH 30.6 pg (27.0-33.0); MCHC 33.5 % (32.0-36.0); MCV 91 fL (80-95); MPV 9.8 fL (8.0-11.0); Platelet Count 203 10^3/uL (130-400); RBC 3.86 10^6/uL (3.93-5.22); RDW 12.5 % (11.7-14.6); RDW-SD 41.4 fL; WBC 7.47 10^3/uL (4.4-10.8)
[2024-10-25] MEDS: Normal Saline 500 ML IV (13:45)
[2024-10-25 14:04] LABS: Anion Gap 7.7 mmol/L (3-11); BUN 16 mg/dL (7-18); CO2 27.3 mmol/L (21.0-32.0); Calcium 9.0 mg/dL (8.5-10.1); Chloride 105 mmol/L (98-107); Creatine Kinase 82 U/L (26-192); Estimated GFR 86.83 (mL/min/1.73m2); Glucose 100 mg/dL (74-106); Magnesium 2.0 mg/dL (1.8-2.4); Potassium 3.9 mmol/L (3.5-5.1); Sodium 140 mmol/L (136-145)
--- NOTE | 2024-10-25 14:15 | DI.MRI_ITS ---
Exam(s) MR BRAIN WO EXAM: MR BRAIN WO CLINICAL HISTORY: Right-sided numbness TECHNIQUE: Multiplanar multisequence MRI of the brain was performed. COMPARISON: MR MR BRAIN WO from 07/02/[address] BRAIN NECK CTA from 10/25/2024 FINDINGS: VENTRICLES AND EXTRA AXIAL SPACES: Normal in size and morphology for the patient's age. MIDLINE SHIFT: None. CEREBRAL PARENCHYMA: No focus of restricted diffusion to suggest acute infarct. No space-occupying lesion identified. Mild atrophy consistent with the patient's age. Stable areas of high signal in the white matter most likely representing sequela of chronic microvascular disease. BRAINSTEM/CEREBELLUM: Normal. VISUALIZED PARANASAL SINUSES: Clear. MASTOIDS:Clear. Vasculature: Normal flow void. PITUITARY GLAND: Unremarkable. ORBITS: Unremarkable. IMPRESSION: Stable white matter changes. No evidence of acute infarct, hemorrhage or mass. DATA REPOSITORY:
[2024-10-25] MEDS: Aspirin 81 MG CHEW 324 MG CH (14:35)
[2024-10-25] MEDS: Midazolam 2 MG/2 ML VIAL 1 MG IVP (15:30)
--- NOTE | 2024-10-25 18:49 | W.EDPROG ---
Date of service: 10/25/24 Time of Service: 21:26 Medical Decision Making Patient was signed out to me by Dr. Joseph, please refer to his HPI, physical exam, assessment and plan, at time of signout we are pending MRI results. MRI results have returned, stable white matter changes, no evidence of acute infarct hemorrhage or mass or other abnormality. On reassessment patient's symptoms have completely resolved. She feels well, and shows no focal neurologic deficits. Differential includes peripheral neuralgia, TIA, dehydration. With no evidence of stroke, no indication for further imaging at this time. Patient stable for discharge, recommend close follow-up with primary care provider for reassessment. Patient does not feel comfortable starting aspirin at this time. Discussed red flags for which to return. I have extensively reviewed the treatment plan and discharge instructions with the patient. I have addressed all patient concerns at this time. The patient was made aware of what symptoms to monitor for that would warrant a return to the emergency department. Discussed the plan with the patient, they demonstrate verbal understanding and agreement with our assessment and plan at this time. The documentation in this chart was dictated using [employer] dictation software. Please excuse any dictation errors. FINDINGS: VENTRICLES AND EXTRA AXIAL SPACES: Normal in size and morphology for the patient's age. MIDLINE SHIFT: None. CEREBRAL PARENCHYMA: No focus of restricted diffusion to suggest acute infarct. No space-occupying lesion identified. Mild atrophy consistent with the patient's age. Stable areas of high signal in the white matter most likely representing sequela of chronic microvascular disease. BRAINSTEM/CEREBELLUM: Normal. VISUALIZED PARANASAL SINUSES: Clear. MASTOIDS:Clear. Vasculature: Normal flow void. PITUITARY GLAND: Unremarkable. ORBITS: Unremarkable. IMPRESSION: Stable white matter changes. No evidence of acute infarct, hemorrhage or mass. Quality:SDOH Health Related Social Needs: Health related social needs lonely/isolated Discharge Plan Disposition Patient Disposition: Home Condition: Good Discharge Details Clinical Impression: Numbness on right side Primary Care Provider: Mellissa Garnett ED Provider: Wood Zaragoza Home Meds and New Rx's Prescriptions: No Action Systane Complete 0.6 % drops 1 drp OP TID PRN losartan 50 mg tablet 50 mg PO DAILY Qty: 90 4RF Patient Comments: Did not take, reports provider is taking me off that medication 2/28/24 TR sertraline 50 mg tablet 50 mg PO DAILY Qty: 90 4RF nystatin 100,000 unit/gram powder 1 applic Topical BID PRNQty: 60 Rx Instructions: 1-3 GM BID lansoprazole [Prevacid] 30 mg capsule,delayed release(DR/EC) 30 mg PO DAILY Qty: 90 6RF mirtazapine 7.5 mg tablet 7.5 mg PO QHS Qty: 90 4RF atorvastatin 10 mg tablet 10 mg PO DAILY Qty: 90 4RF duloxetine 30 mg capsule,delayed release(DR/EC) 30 mg PO DAILY Qty: 30 5RF acetaminophen 500 mg tablet 1,000 mg PO Q8H PRN (Reason: pain) Qty: 90 3RF Fortify Probiotic 50 billion cell-50 mg Capsule,Delayed Release(Dr/Ec) 1 cap PO DAILY cholecalciferol (vitamin D3) [Vitamin D3] 1,000 UNIT capsule 1,000 unit PO DAILY Discharge Instructions Instructions: Hand Numbness Additional Instructions: At this time your MRI has returned normal, thankfully there is no other evidence of significant abdomen abnormality on your workup. There is no evidence of stroke. Please drink plenty fluids and stay well-hydrated, please follow-up closely with your primary care provider. If you notice any worsening of your symptoms, or any new symptoms such as vomiting, diarrhea, fever, chills, shortness of breath, chest pain, numbness, weakness, or fainting , please return immediately to the emergency department for reevaluation. Please follow up with your primary care provider as soon as possible for reassessment and reevaluation. As always, it was a pleasure participating in your medical care today. Referrals: Mellissa Garnett MD, [place] [Primary Care Provider, Medicine]
== END 2024-10-25 18:59 | disposition home or self-care (01) ==
PROVIDERS: Emergency Medicine; Emergency Provider Student in an Organized Health Care Education/Training Program; PCP Family Medicine
DX: R20.0 Anesthesia of skin (principal); R29.701 NIHSS score 1; I10 Essential (primary) hypertension; Z87.891 Personal history of nicotine dependence
CPT/HCPCS: 00123; 20610; 70496; 70498; 80048; 82550; 93005; 96361; 96374; 99213; 99285; J1010; 70551; 83735; 85025; 93010; J2250

== ENCOUNTER → 2024-11-13 09:53 | Outpatient (BNVA) | payer MEDICARE, OTHER, SELFPAY | PROVIDERS: PCP Family Medicine; Referring Provider Family Medicine; Visit Provider Nurse Practitioner Gerontology | DX: N39.41 Urge incontinence (principal) | CPT/HCPCS: 64566 ==

== ENCOUNTER → 2024-12-11 09:54 | Outpatient (BNVA) | payer MEDICARE, OTHER, SELFPAY | PROVIDERS: PCP Family Medicine; Referring Provider Family Medicine; Visit Provider Nurse Practitioner Gerontology | DX: N39.41 Urge incontinence (principal); N36.42 Intrinsic sphincter deficiency (ISD) | CPT/HCPCS: 64566 ==

== ENCOUNTER → 2025-01-08 09:52 | Outpatient (BNVA) | payer MEDICARE, OTHER, SELFPAY | PROVIDERS: PCP Family Medicine; Referring Provider Family Medicine; Visit Provider Nurse Practitioner Gerontology | DX: R39.15 Urgency of urination (principal); N36.42 Intrinsic sphincter deficiency (ISD) | CPT/HCPCS: 64566 ==

== ENCOUNTER → 2025-01-27 09:47 | Outpatient (BNVA) | payer MEDICARE, OTHER, SELFPAY | PROVIDERS: PCP Family Medicine; Referring Provider Family Medicine; Visit Provider Physician Assistant | DX: M70.61 Trochanteric bursitis, right hip (principal) | CPT/HCPCS: 99213 ==

== ENCOUNTER → 2025-02-05 09:47 | Outpatient (BNVA) | payer MEDICARE, OTHER, SELFPAY | PROVIDERS: PCP Family Medicine; Referring Provider Family Medicine; Visit Provider Nurse Practitioner Gerontology | DX: N39.41 Urge incontinence (principal); N36.42 Intrinsic sphincter deficiency (ISD) | CPT/HCPCS: 64566 ==

== ENCOUNTER → 2025-03-04 08:52 | Outpatient (BNVA) | payer MEDICARE, OTHER, SELFPAY | PROVIDERS: PCP Family Medicine; Referring Provider Family Medicine; Visit Provider Nurse Practitioner Gerontology | DX: N39.41 Urge incontinence (principal); N36.42 Intrinsic sphincter deficiency (ISD) | CPT/HCPCS: 64566 ==

== ENCOUNTER → 2025-04-02 09:52 | Outpatient (BNVA) | payer MEDICARE, OTHER, SELFPAY | PROVIDERS: PCP Family Medicine; Referring Provider Family Medicine; Visit Provider Nurse Practitioner Gerontology | DX: N39.41 Urge incontinence (principal); N36.42 Intrinsic sphincter deficiency (ISD) | CPT/HCPCS: 64566 ==